=== PATIENT | male | born 1945 | race Caucasian/White ===

== ENCOUNTER 2017-01-15 09:49 | Inpatient (IN) | payer MEDICARE, OTHER ==
--- NOTE | 2017-01-15 10:11 | ED ---
General Adult HPI - General Chief complaint: Weakness Stated complaint: Weakness Time Seen by Provider: 01/15/17 09:50 Source: patient, family, EMS, RN notes reviewed Mode of arrival: EMS - History of Present Illness Initial comments: This is a 71-year-old male who presents emergency Department with a past medical history significant for mental illness according to his brother. His brother doesn't know what specific mental illness he has but he does stay in a nursing home. Patient was sent in today because he was too weak in both of his legs to stand. Patient denies any weakness to one leg greater than the other. Patient denies any headache patient denies any focal weakness or numbness. Patient denies any visual disturbance or speech disturbance. Patient does have slurred speech. Brother states that is normal. Patient denies any pain. He denies headache denies chest pain denies abdominal pain. Patient denies any difficulty breathing or shortness of breath. Patient denies any palpitations. Patient denies abdominal pain patient denies nausea vomiting diarrhea. Patient denies any recent fever or chills - Related Data Home Medications Medication Instructions Recorded Confirmed ARIPiprazole [Abilify] 30 mg PO DAILY 01/15/17 01/15/17 Acetaminophen [Tylenol] 500 mg PO Q6H PRN 01/15/17 01/15/17 Aspirin EC [Ecotrin Low Dose] 81 mg PO DAILY 01/15/17 01/15/17 Atorvastatin [Lipitor] 40 mg PO HS 01/15/17 01/15/17 Benztropine Mesylate [Cogentin] 2 mg PO HS 01/15/17 01/15/17 Diazepam [Valium] 5 mg PO TID 01/15/17 01/15/17 Ferrous Sulfate [Feosol] 325 mg PO TID 01/15/17 01/15/17 Furosemide [Lasix] 40 mg PO DAILY 01/15/17 01/15/17 Lisinopril [Zestril] 10 mg PO DAILY 01/15/17 01/15/17 Naproxen [Naprosyn] 500 mg PO Q12HR 01/15/17 01/15/17 lamoTRIgine [LaMICtal] 100 mg PO BID 01/15/17 01/15/17 traZODone HCL 100 mg PO HS 06/29/17 06/29/17 Allergies Allergy/AdvReac Type Severity Reaction Status Date / Time No Known Allergies Allergy Unverified 01/15/17 09:53 Review of Systems ROS Statement: Those systems with pertinent positive or pertinent negative responses have been documented in the HPI. ROS Other: All systems not noted in ROS Statement are negative. Past Medical History Past Medical History: Unable to Obtain History of Any Multi-Drug Resistant Organisms: None Reported Additional Past Surgical History / Comment(s): patient refused to disclose Past Psychological History: Unable to Obtain Smoking Status: Current every day smoker Past Alcohol Use History: None Reported Past Drug Use History: None Reported General Exam - General Exam Comments Initial Comments: GENERAL: Patient is well-developed and well-nourished. Patient is nontoxic and well- hydrated and is in no acute distress. ENT: Neck is soft and supple. No significant lymphadenopathy is noted. Oropharynx is clear. Moist mucous membranes. EYES: The sclera were anicteric and conjunctiva were pink and moist. Extraocular movements were intact and pupils were equal round and reactive to light. Eyelids were unremarkable. PULMONARY: Unlabored respirations. Good breath sounds bilaterally. No audible rales rhonchi or wheezing was noted. CARDIOVASCULAR: There is a regular rate and rhythm without any murmurs gallops or rubs. ABDOMEN: Soft and nontender with normal bowel sounds. No palpable organomegaly was noted. There is no palpable pulsatile mass. SKIN: Skin is clear with no lesions or rashes and otherwise unremarkable. NEUROLOGIC: Patient is alert and oriented 2. Cranial nerves II through XII are grossly intact. Motor and sensory are also intact. Patient has slurred speech but family states this is normal for him. Symmetrical smile. MUSCULOSKELETAL: Normal extremities with adequate strength and full range of motion. 1+ edema.. No calf tenderness. LYMPHATICS: No significant lymphadenopathy is noted Course Vital Signs 01/15/17 01/15/17 01/15/17 09:50 11:30 12:08 Temperature 98.3 F Pulse Rate 95 Respiratory 17 Rate Blood Pressure 159/97 150/65 O2 Sat by Pulse 90 L 75 L Oximetry 01/15/17 01/15/17 01/15/17 12:17 14:23 15:22 Temperature Pulse Rate 89 91 89 Respiratory 18 18 20 Rate Blood Pressure 116/57 97/53 104/54 O2 Sat by Pulse 93 L 92 L 96 Oximetry 01/15/17 16:53 Temperature 97.1 F L Pulse Rate 84 Respiratory 18 Rate Blood Pressure 103/52 O2 Sat by Pulse 95 Oximetry Medical Decision Making - Medical Decision Making EKG shows sinus rhythm with occasional PVC at 96 bpm NE interval is 166 QRS is 90 QT interval 394 QTC is 497. Patient's EKG shows some T-wave inversions in leads V1 through V4. When compared to an old EKG these are new changes. At 1226 patient's x-ray came back as a possible pneumonia so we do a lactic acid at this time. - Lab Data Result diagrams: 01/15/17 10:20 01/15/17 10:20 Lab Results 01/15/17 01/15/17 01/15/17 Range/Units 10:20 10:20 10:20 WBC 7.7 (3.8-10.6) k/uL RBC 4.35 (4.30-5.90) m/uL Hgb 11.2 L (13.0-17.5) gm/dL Hct 36.9 L (39.0-53.0) % MCV 84.8 (80.0-100.0) fL MCH 25.7 (25.0-35.0) pg MCHC 30.3 L (31.0-37.0) g/dL RDW 16.5 H (11.5-15.5) % Plt Count 333 (150-450) k/uL Neutrophils % 71 % Lymphocytes % 19 % Monocytes % 5 % Eosinophils % 3 % Basophils % 1 % Neutrophils # 5.4 (1.3-7.7) k/uL Lymphocytes # 1.4 (1.0-4.8) k/uL Monocytes # 0.4 (0-1.0) k/uL Eosinophils # 0.2 (0-0.7) k/uL Basophils # 0.0 (0-0.2) k/uL Hypochromasia Marked Anisocytosis Slight PT (9.0-12.0) sec INR (<1.1) APTT (22.0-30.0) sec Sodium 138 (137-145) mmol/L Potassium 4.6 (3.5-5.1) mmol/L Chloride 99 (98-107) mmol/L Carbon Dioxide 32 H (22-30) mmol/L Anion Gap 7 mmol/L BUN 36 H (9-20) mg/dL Creatinine 1.38 H (0.66-1.25) mg/dL Est GFR (MDRD) Af Amer >60 (>60 ml/min/1.73 sqM) Est GFR (MDRD) Non-Af 51 (>60 ml/min/1.73 sqM) Glucose 107 H (74-99) mg/dL Plasma Lactic Acid Ezequiel (0.7-2.0) mmol/L Calcium 8.4 (8.4-10.2) mg/dL Magnesium 2.2 (1.6-2.3) mg/dL Total Bilirubin 0.6 (0.2-1.3) mg/dL AST 47 (17-59) U/L ALT 70 (21-72) U/L Alkaline Phosphatase 118 (38-126) U/L Total Creatine Kinase 60 (55-170) U/L CK-MB (CK-2) 3.1 H* (0.0-2.4) ng/mL CK-MB (CK-2) Rel Index 5.2 Troponin I 0.082 H* (0.000-0.034) ng/mL Total Protein 6.6 (6.3-8.2) g/dL Albumin 3.5 (3.5-5.0) g/dL Urine Color Urine Appearance (Clear) Urine pH (5.0-8.0) Ur Specific Devol (1.001-1.035) Urine Protein (Negative) Urine Glucose (UA) (Negative) Urine Ketones (Negative) Urine Blood (Negative) Urine Nitrite (Negative) Urine Bilirubin (Negative) Urine Urobilinogen (<2.0) mg/dL Ur Leukocyte Esterase (Negative) Urine RBC (0-5) /hpf Urine WBC (0-5) /hpf Ur Squamous Epith Cells (0-4) /hpf Urine Bacteria (None) /hpf Hyaline Casts (0-2) /lpf Urine Mucus (None) /hpf 01/15/17 01/15/17 01/15/17 Range/Units 10:20 10:20 12:05 WBC (3.8-10.6) k/uL RBC (4.30-5.90) m/uL Hgb (13.0-17.5) gm/dL Hct (39.0-53.0) % MCV (80.0-100.0) fL MCH (25.0-35.0) pg MCHC (31.0-37.0) g/dL RDW (11.5-15.5) % Plt Count (150-450) k/uL Neutrophils % % Lymphocytes % % Monocytes % % Eosinophils % % Basophils % % Neutrophils # (1.3-7.7) k/uL Lymphocytes # (1.0-4.8) k/uL Monocytes # (0-1.0) k/uL Eosinophils # (0-0.7) k/uL Basophils # (0-0.2) k/uL Hypochromasia Anisocytosis PT 10.5 (9.0-12.0) sec INR 1.0 (<1.1) APTT 23.2 (22.0-30.0) sec Sodium (137-145) mmol/L Potassium (3.5-5.1) mmol/L Chloride (98-107) mmol/L Carbon Dioxide (22-30) mmol/L Anion Gap mmol/L BUN (9-20) mg/dL Creatinine (0.66-1.25) mg/dL Est GFR (MDRD) Af Amer (>60 ml/min/1.73 sqM) Est GFR (MDRD) Non-Af (>60 ml/min/1.73 sqM) Glucose (74-99) mg/dL Plasma Lactic Acid Ezequiel 1.2 (0.7-2.0) mmol/L Calcium (8.4-10.2) mg/dL Magnesium (1.6-2.3) mg/dL Total Bilirubin (0.2-1.3) mg/dL AST (17-59) U/L ALT (21-72) U/L Alkaline Phosphatase (38-126) U/L Total Creatine Kinase (55-170) U/L CK-MB (CK-2) (0.0-2.4) ng/mL CK-MB (CK-2) Rel Index Troponin I (0.000-0.034) ng/mL Total Protein (6.3-8.2) g/dL Albumin (3.5-5.0) g/dL Urine Color Yellow Urine Appearance Clear (Clear) Urine pH 5.5 (5.0-8.0) Ur Specific Devol 1.022 (1.001-1.035) Urine Protein Trace H (Negative) Urine Glucose (UA) Negative (Negative) Urine Ketones Negative (Negative) Urine Blood Negative (Negative) Urine Nitrite Negative (Negative) Urine Bilirubin Negative (Negative) Urine Urobilinogen 2.0 (<2.0) mg/dL Ur Leukocyte Esterase Trace H (Negative) Urine RBC 1 (0-5) /hpf Urine WBC 1 (0-5) /hpf Ur Squamous Epith Cells <1 (0-4) /hpf Urine Bacteria Rare H (None) /hpf Hyaline Casts 60 H (0-2) /lpf Urine Mucus Rare H (None) /hpf Disposition Clinical Impression: Pneumonia Disposition: ADMITTED IP TO THIS HOSP Referrals: Samantha Altman MD [REFERRING] - 1-2 days Time of Disposition: 16:50
[2017-01-15 10:54] LABS: ALT 70 U/L (21-72); AST 47 U/L (17-59); Alkaline Phosphatase 118 U/L (38-126); Anion Gap 7 mmol/L; Blood Urea Nitrogen 36 mg/dL (9-20); Calcium 8.4 mg/dL (8.4-10.2); Carbon Dioxide 32 mmol/L (22-30); Chloride 99 mmol/L (98-107); Glucose 107 mg/dL (74-99); Magnesium 2.2 mg/dL (1.6-2.3); Non-African American GFR(MDRD) 51 (>60 ml/min/1.73 sqM); Potassium 4.6 mmol/L (3.5-5.1); Sodium 138 mmol/L (137-145); Total Bilirubin 0.6 mg/dL (0.2-1.3); Total Protein 6.6 g/dL (6.3-8.2)
[2017-01-15 11:02] LABS: Partial Thromboplastin Time 23.2 sec (22.0-30.0); Prothrombin Time 10.5 sec (9.0-12.0)
[2017-01-15 11:10] LABS: Anisocytosis Slight; Basophils % (A) 1 %; CH 24.1; CHCM 28.6; Eosinophils # (A) 0.2 k/uL (0-0.7); Eosinophils % (A) 3 %; HCT 36.9 % (39.0-53.0); HDW 3.04; HGB 11.2 gm/dL (13.0-17.5); Hypochromasia Marked; Luc % (Auto) 3; Lymphocytes # (A) 1.4 k/uL (1.0-4.8); Lymphocytes % (A) 19 %; MCH 25.7 pg (25.0-35.0); MCHC 30.3 g/dL (31.0-37.0); MCV 84.8 fL (80.0-100.0); Mean Platelet Volume 7.6; Monocytes # (A) 0.4 k/uL (0-1.0); Monocytes % (A) 5 %; Neutrophils # (A) 5.4 k/uL (1.3-7.7); Neutrophils % (A) 71 %; RBC 4.35 m/uL (4.30-5.90); RDW 16.5 % (11.5-15.5); WBC 7.7 k/uL (3.8-10.6); WBC (Perox) 7.68
--- NOTE | 2017-01-15 11:14 | XR ---
EXAMINATION TYPE: XR chest 2V DATE OF EXAM: 01/15/2017 COMPARISON: 10/08/2012 INDICATION: Weakness TECHNIQUE: Frontal and lateral views of the chest are obtained. FINDINGS: The heart size is enlarged. The pulmonary vasculature is normal. There is opacity through the right midlung. This is also in the posterior right lung base. Small righ t pleural effusion is present.. IMPRESSION: 1. Right lower posterior lung infiltrate can be related to chronic changes previous. Small right pleu ral effusion is present.
[2017-01-15 11:18] LABS: Creatine Kinase MB 3.1 ng/mL (0.0-2.4); Troponin I 0.082 ng/mL (0.000-0.034)
[2017-01-15] MEDS ORDERED: RX INFO: IV CONTRAST WAS GIVEN 1 EACH MISC MISCELLANE PRN (12:25)
[2017-01-15] MEDS ORDERED: LEVOFLOXACIN 750MG-D5W PMX 750 MG in DEXTROSE/WATER 1 150ML.BAG IVPB STA (12:25)
[2017-01-15 12:27] LABS: Appearance,Urine Clear (Clear); Bacteria,Urine Rare /hpf; Bilirubin,Urine Negative (Negative); Glucose,Urine (UA) Negative (Negative); Ketones,Urine Negative (Negative); Leukocyte Esterase,Urine Trace (Negative); Mucus,Urine Rare /hpf; Nitrite,Urine Negative (Negative); PH, Urine 5.5 (5.0-8.0); Particle Count 3321; Protein,Urine Trace (Negative); RBC,Urine 1 /hpf (0-5); Specific Gravity,Urine 1.022 (1.001-1.035); Squamous Epithelial Cell,Urine <1 /hpf (0-4); UA Billing (MACRO vs. MICRO) MICRO; WBC,Urine 1 /hpf (0-5)
[2017-01-15] MEDS ORDERED: LORazepam 2 MG/ML SYRINGE IV STA (12:30)
[2017-01-15] MEDS ORDERED: KETOROLAC 60 MG/2 ML VIAL IVP STA (13:17)
--- NOTE | 2017-01-15 13:20 | CT ---
EXAMINATION TYPE: CT chest angio for PE DATE OF EXAM: 01/15/2017 COMPARISON: Radiograph 01/15/2017 HISTORY: 71-year-old male trouble breathing, weakness TECHNIQUE: Contiguous axial scanning of the chest performed with IV Contrast, patient injected with 8 0 mL of Visipaque 320. Coronal/sagittal MIP reconstructions performed. CT DLP: 685 mGycm Automated exposure control for dose reduction was used. FINDINGS: The heart is moderately enlarged without pericardial effusion. Vessel calcifications are present. Aorta normal caliber with conventional arch vessel branching me. No thoracic lymphadenopathy by CT size criteria. Large caliber to the right and left pulmonary arteries and it 3.3 and 3.0 cm, respectively, suggestin g underlying pulmonary artery hypertension. Allowing for some respiratory motion artifact, no pulmona ry embolus is seen. Mild diffuse bronchial wall thickening and septal lines in the mid to lower lungs. There is a focal a lino of rounded masslike opacity with associated volume loss within the basilar right lower lobe measu ring 6.1 cm wide abutting the pleural surface. There is a small to moderate right pleural effusion wi th thickened surrounding pleura. Additional focal opacity in the subpleural right middle lobe show so me curvilinear radiating densities. Dependent atelectasis posterior left base. Visualized upper abdomen shows a 4.1 cm gallstone. Indeterminate hypodense lesion, partially visualiz ed in the left kidney seems to have been present in 2012 as well suggestive of a cyst. Bridging anterior endplate spondylosis within the thoracic spine. No osseous destructive process. IMPRESSION: 1. ALLOWING FOR RESPIRATORY MOTION ARTIFACTS, NO EVIDENCE FOR PULMONARY EMBOLUS. 2. MODERATE CARDIOMEGALY AND PULMONARY ARTERIAL HYPERTENSION. 3. GIVEN SOME SCATTERED GROUNDGLASS AND SEPTAL LINES IN THE MID TO LOWER LUNGS, CORRELATE TO EXCLUDE MILD CHF. 4. A SMALL TO MODERATE RIGHT PLEURAL EFFUSION SHOWS THICKENED SURROUNDING PLEURA. THIS COULD REPRESEN T A COMPLEX EFFUSION OR CHRONIC EFFUSION. CLINICAL CORRELATION RECOMMENDED. 5. ROUNDED MASSLIKE AREA OF CONSOLIDATION AND VOLUME LOSS ABUTTING THE PLEURAL EFFUSION WITHIN THE RI GHT LOWER LOBE. ROUNDED ATELECTASIS IS FAVORED. SIMILAR SMALLER AREA IN THE RIGHT MIDDLE LOBE. A 3-6 MONTH FOLLOW-UP EXAM IS RECOMMENDED TO REASSESS.
[2017-01-15] MEDS ORDERED: PNEUMONIA PROTOCOL UTILIZED 1 EACH MISC PO PRN (16:38)
[2017-01-15] MEDS ORDERED: ACETAMINOPHEN TAB 500 MG TAB PO PRN (19:35)
[2017-01-15] MEDS ORDERED: IPRATROPIUM-ALBUTEROL 3 ML NEB INHALATION SCH (20:00)
[2017-01-15] MEDS: FUROSEMIDE 10 MG/ML 4 ML VIAL IV SCH (20:58)
[2017-01-15] MEDS: ATORVASTATIN 40 MG TAB PO SCH (20:58)
[2017-01-15] MEDS: BENZTROPINE MESYLATE 1 MG TAB PO SCH (20:58)
[2017-01-15] MEDS: lamoTRIgine 100 MG TAB PO SCH (20:59)
[2017-01-15] MEDS: NAPROXEN 250 MG TAB PO SCH (20:59)
[2017-01-15] MEDS: FERROUS SULFATE 325 MG TAB PO SCH (21:00)
[2017-01-15] MEDS: traZODone HCL 100 MG TAB PO SCH (21:00)
[2017-01-15] MEDS ORDERED: IPRATROPIUM-ALBUTEROL 3 ML NEB INHALATION PRN (23:04)
[2017-01-16 03:35] LABS: Anion Gap 6 mmol/L; Blood Urea Nitrogen 27 mg/dL (9-20); Calcium 8.2 mg/dL (8.4-10.2); Carbon Dioxide 36 mmol/L (22-30); Chloride 98 mmol/L (98-107); Glucose 101 mg/dL (74-99); Non-African American GFR(MDRD) 54 (>60 ml/min/1.73 sqM); Potassium 4.6 mmol/L (3.5-5.1); Sodium 140 mmol/L (137-145)
[2017-01-16 04:22] LABS: Anisocytosis Slight; Basophils # (A) 0.1 k/uL (0-0.2); Basophils % (A) 1 %; CH 24.5; CHCM 28.3; Eosinophils # (A) 0.2 k/uL (0-0.7); Eosinophils % (A) 2 %; HCT 35.1 % (39.0-53.0); HDW 2.99; HGB 10.4 gm/dL (13.0-17.5); Hypochromasia Marked; Luc % (Auto) 1; Lymphocytes # (A) 1.4 k/uL (1.0-4.8); Lymphocytes % (A) 20 %; MCH 25.8 pg (25.0-35.0); MCHC 29.6 g/dL (31.0-37.0); Mean Platelet Volume 7.9; Monocytes # (A) 0.4 k/uL (0-1.0); Monocytes % (A) 5 %; Neutrophils # (A) 4.9 k/uL (1.3-7.7); Neutrophils % (A) 70 %; RBC 4.03 m/uL (4.30-5.90); RDW 16.3 % (11.5-15.5); WBC (Perox) 6.96
[2017-01-16] MEDS: NAPROXEN 250 MG TAB PO SCH ×2 (08:02→22:25)
[2017-01-16] MEDS: ASPIRIN 81 MG CHEW PO SCH (08:02)
[2017-01-16] MEDS: FERROUS SULFATE 325 MG TAB PO SCH ×3 (08:02→22:24)
[2017-01-16] MEDS: ARIPiprazole 15 MG TAB PO SCH (08:02)
[2017-01-16] MEDS: FUROSEMIDE 10 MG/ML 4 ML VIAL IV SCH (08:02)
[2017-01-16] MEDS: lamoTRIgine 100 MG TAB PO SCH ×2 (08:02→22:24)
[2017-01-16] MEDS ORDERED: ONDANSETRON 4 MG/2 ML VIAL IVP PRN (08:45)
[2017-01-16] MEDS ORDERED: LISINOPRIL 10 MG TAB PO SCH (09:00)
--- NOTE | 2017-01-16 10:00 | P.CN ---
Psychiatric Consult - . Consult date: 01/16/17 Consult:: 01/16/17 09:48 DATE OF SERVICE: 01/16/2017 IDENTIFYING DATA: This patient is a 71-year-old occasion male admitted to medical bed for weakness. Psychiatry was consult because patient is on several psychotropic medications, therefore having a psychiatric history. No specific consultation question. HISTORY OF PRESENT ILLNESS: The patient seated in the chair at the side of his bed water all over the floor patient apparently spilled couple water. His diaper was open and hanging down the edge of the chair. Patient was able to state his full name, and where he is, and gave the date as 01/15/2017. Patient was unable to state why he was here at the hospital. Patient was difficult to understand, mumbling his words. He did report that he is taking several medications he corrected me and stated "a lot of medications" . He stated that he has problems with sleep. He denied depression, anxiety. Patient denied thoughts of suicide or wanting to end his life. Received information from nurse Palma that his brother was briefly here today and that he reported the patient is a [place] . No other information available. Record review shows that patient has a guardian. It's also noted that patient lives in a jail. He has [facility] health benefits. Medically patient is being treated for pneumonia. PAST PSYCHIATRIC HISTORY: Unknown. PAST MEDICAL HISTORY: Per record, currently treated for pneumonia. ALLERGIES: No known drug allergies. CHEMICAL DEPENDENCY HISTORY: Unknown. FAMILY PSYCHIATRIC HISTORY: Unknown. FAMILY CHEMICAL DEPENDENCY HISTORY: Unknown. MENTAL STATUS EXAM: Patient alert and oriented 3 (off by one day) poor eye contact, tremor, fair groomed in hospital attire. Speech garbled, slurred, mumbling. no spontaneous speech Coherent, logical, goal directed thought process. No KAYDEN, no FOI. No TB/TW/TI Denied auditory and visual hallucinations. Denied paranoid ideation, delusions or IOR. Memory could not test Cognition unable to assess Mood neutral, affect constricted, congruent with mood. Denies suicidal ideation, denies homicidal ideation. Insight minimal; Judgment grossly intact for treatment purposes . IMPRESSIONS: Patient admitted for weakness, has several psychotropic medications that he is taking for unknown reasons. He now has been diagnosed with pneumonia and is being treated. No psychiatric symptoms were noted today nor the record, nor did the RN make any report of problems. Report by RN though from brother that patient is a [place] , and may have PTSD, which is coincide with what the patient reported that he has difficulty with sleep. Patient denied feeling depressed, anxious, and denied suicidal ideation or thoughts of wanting to end his life. At this moment there does not appear to be any psychiatric issues, patient is dealing with a medical illness that can compromise cognition as well as physical strength. No evidence of delirium, no evidence of psychosis, no evidence of jessica, no evidence of depression. Pneumonia R/O PTSD PLAN: No indication for psychiatric inpatient care, no indication for continued consult service. When patient is medically clear if there is a psychiatric issue please reconsult. Recommend consult taking social work services to coordinate with the guardian, who should know his psychiatric diagnoses and his treatment setting. Signing off. 01/16/17 10:01
--- NOTE | 2017-01-16 11:07 | ECHOF ---
Referral Reason:chf MEASUREMENTS -------- HEIGHT: 182.9 cm WEIGHT: 117.5 kg BP: 100/56 RVIDd: 4.2 cm (< 3.3) IVSd: 1.4 cm (0.6 - 1.1) LVIDd: 5.1 cm (3.9 - 5.3) LVPWd: 1.7 cm (0.6 - 1.1) IVSs: 1.6 cm LVIDs: 4.6 cm LVPWs: 1.5 cm LA Diam: 4.4 cm (2.7 - 3.8) Ao Diam: 4.8 cm (2.0 - 3.7) AV Cusp: 2.5 cm (1.5 - 2.6) LA Diam: 4.3 cm (2.7 - 3.8) MV EXCURSION: 16.399 mm (> 18.000) MV EF SLOPE: 51 mm/s (70 - 150) EPSS: 1.2 cm MV E Bam: 0.69 m/s MV DecT: 186 ms MV A Bam: 0.81 m/s MV E/A Ratio: 0.85 RAP: 5.00 mmHg RVSP: 53.73 mmHg FINDINGS -------- Undetermined rhythm. This was a technically adequate study. There is moderate concentric left ventricular hypertrophy. Overall left ventricular systolic function is mildly impaired with, an EF between 45 - 50 %. Inferior Hypokinesis The right ventricle is mildly enlarged. The left atrium is mildly dilated. The right atrial size is normal. There is mild aortic valve sclerosis. There is no evidence of aortic regurgitation. Mild mitral annular calcification present. No mitral regurgitation. Right ventricular systolic pressure is normal at < 35 mmHg. There is moderate pulmonary hypertension. The right ventricular systolic pressure, as measured by Doppler, is 53.73mmHg. Trace/mild (physiologic) pulmonic regurgitation. The aortic root size is normal. There is no pericardial effusion. CONCLUSIONS -------- 1. There is moderate concentric left ventricular hypertrophy. 2. There is moderate pulmonary hypertension. 3. The right ventricular systolic pressure, as measured by Doppler, is 53.73mmHg. 4. Trace/mild (physiologic) pulmonic regurgitation. 5. The aortic root size is normal. 6. There is no pericardial effusion. 7. Overall left ventricular systolic function is mildly impaired with, an EF between 45 - 50 %. 8. Inferior Hypokinesis 9. The right ventricle is mildly enlarged. 10. The left atrium is mildly dilated. 11. There is mild aortic valve sclerosis. 12. Mild mitral annular calcification present. 13. No mitral regurgitation. 14. Right ventricular systolic pressure is normal at < 35 mmHg. LOADING AND UNLOADING SUPERVISOR: Elizabeth Beasley RDCS
[2017-01-16] MEDS: LEVOFLOXACIN 750MG-D5W PMX 750 MG in DEXTROSE/WATER 1 150ML.BAG IVPB SCH (12:05)
[2017-01-16 12:38] LABS: Glucose,Whole Blood 205 mg/dL (75-99)
[2017-01-16] MEDS ORDERED: PROPOFOL 50 ML IV ONE ×3 (12:49→14:41)
[2017-01-16] MEDS ORDERED: NOREPINEPHRIN 4 MG-0.9% NS PMX 4 MG/250 ML ML IV ONE (12:56)
[2017-01-16 13:16] LABS: ABG Base Excess 5.3 mmol/L; ABG HCO3 36 mmol/L (21-25); ABG PCO2 >125 mmHg (35-45); ABG PH 7.06 (7.35-7.45); ABG PO2 96 mmHg (83-108); ABG TCO2 40 mmol/L (19-24)
[2017-01-16 13:23] LABS: Glucose,Whole Blood 207 mg/dL (75-99)
--- NOTE | 2017-01-16 13:27 | P.CNPUL ---
History of Present Illness Consult date: 01/16/17 Chief complaint: Acute unresponsiveness History of present illness: A 71-year-old male patient, morbidly obese with advanced COPD and a chronic smoking history along with a long-term psychiatric history probably including a combination of depression and PTSD who has been living in a detention. The patient came in yesterday to the hospital because of altered mentation and generalized body weakness. Not much of information is available. Emergency was not able to obtain information from this patient as the patient was not able to volunteer any information. The patient was sent in because he was too weak to stand and his weakness was both in upper and lower extremities without having any focal neurological deficit. His brother was in and he told us that he is usually awake and alert and communicative. He lives in a detention due to his underlying psychiatric conditions. The patient was initially admitted to the medical floor and he was given a diagnosis of an underlying pneumonia. Earlier this morning he was alert and responsive and he had several conversations with the nurses and around 1 PM this afternoon the patient became acutely unresponsive and an emergency consultation was requested by pulmonary and critical care. I came at the bedside and the patient was completely unresponsive. He had very shallow breathing. His blood pressure was low with a systolic in the mid 80s. He was not withdrawing to any painful stimuli. Pupils were about 3-4 mm in size and sluggishly reactive. At that point a immediate to move the patient intensive care unit. I had a brief discussion with the patient's brother. I and nondistended the patient has a public guardian. The patient does not have any advanced directives. Based on that, I immediately intubated the patient and put him on a mechanical ventilator. I put him on assist control mode at the rate of 16 with tidal volume 450 and FiO2 of 50% and a PEEP of 5. Blood gases that was done post intubation showed a pH of 7.06 with a pCO2 of 133 and pO2 of 96 and this was on FiO2 of 50%. Based on this, I kept the tidal volume of 450 increased the rate up to 24. The patient is currently sedated with Diprivan at 5 mics. He is quite hypotensive. Triple lumen catheter was inserted and the patient is being resuscitated IV fluids. The patient is also on pressors and currently levo fed is running at 30 mics. For at least to be inserted yet. NG tube was inserted. The patient had approximately 400-500 mL of gastric output which was clear and liquidy. No abdominal distention. No seizure activity. Going back to the labs, the patient had a normal white cell count this morning with a hemoglobin of 10.4. His coagulation profile was within normal. Creatinine was at 1.3 and a baseline creatinine is not known. He has chronic metabolic alkalosis probably compensatory to CO2 retention with a bicarb level of 36. Troponins were positive and there was a minimal amount of leak with a troponin of 0.08 and 0.127 respectively 2. BNP level was 7580. Echocardiogram was done earlier this morning showed a moderate concentric left ventricular hypertrophy with moderate degree of pulmonary hypertension with right ventricular systolic pressure of 53. The patient had also an ejection fraction of 45-50%. Mild aortic sclerosis. No mitral regurgitation. No pericardial effusion. CT angios the chest was also done and this showed moderate cardiomegaly with evidence of pulmonary hypertension. Some scattered groundglass changes and septal lines in the mid and the lower lung hernandez bilaterally consistent with CHF. There was a small to moderate-sized right-sided pleural effusion and a rounded masslike area of consolidation in the right lung base along with some volume loss probably related to around atelectasis. There was respiratory motion. No evidence of any pulmonary embolism. CAT scan of the brain has not been done. Review of Systems ROS unobtainable: due to endotracheal tube Past Medical History Past Medical History: No Reported History Additional Past Medical History / Comment(s): Obesity, pulmonary resident, depression, PTSD, COPD, chronic hypercapnic respiratory failure, hyperlipidemia , hypertension, History of Any Multi-Drug Resistant Organisms: None Reported Past Surgical History: No Surgical Hx Reported Additional Past Surgical History / Comment(s): patient refused to disclose Past Anesthesia/Blood Transfusion Reactions: No Reported Reaction Past Psychological History: Unable to Obtain Additional Psychological History / Comment(s): ER report indicated family member states there is a history of mental illness, but unsure what mental illness Smoking Status: Current some day smoker Past Alcohol Use History: None Reported Past Drug Use History: None Reported - Past Family History Father Family Medical History: Unable to Obtain Mother Family Medical History: Unable to Obtain Medications and Allergies Home Medications Medication Instructions Recorded Confirmed Type ARIPiprazole [Abilify] 30 mg PO DAILY 01/15/17 01/15/17 History Acetaminophen [Tylenol] 500 mg PO Q6H PRN 01/15/17 01/15/17 History Aspirin EC [Ecotrin Low Dose] 81 mg PO DAILY 01/15/17 01/15/17 History Atorvastatin [Lipitor] 40 mg PO HS 01/15/17 01/15/17 History Benztropine Mesylate [Cogentin] 2 mg PO HS 01/15/17 01/15/17 History Diazepam [Valium] 5 mg PO TID 01/15/17 01/15/17 History Ferrous Sulfate [Feosol] 325 mg PO TID 01/15/17 01/15/17 History Furosemide [Lasix] 40 mg PO DAILY 01/15/17 01/15/17 History Lisinopril [Zestril] 10 mg PO DAILY 01/15/17 01/15/17 History Naproxen [Naprosyn] 500 mg PO Q12HR 01/15/17 01/15/17 History lamoTRIgine [LaMICtal] 100 mg PO BID 01/15/17 01/15/17 History traZODone HCL 100 mg PO HS 01/15/17 01/15/17 History Allergies Allergy/AdvReac Type Severity Reaction Status Date / Time No Known Allergies Allergy Unverified 01/15/17 09:53 Physical Exam Vitals: Vital Signs Temp Pulse Pulse Resp BP BP Pulse Ox 01/16/17 12:00 98.2 F 100 20 118/60 96 01/16/17 08:00 97.9 F 90 20 122/64 95 01/16/17 04:00 97.1 F L 62 17 100/56 95 01/16/17 00:00 97.2 F L 63 16 132/56 94 L 01/15/17 20:13 96 01/15/17 18:13 98.2 F 90 17 118/57 91 L 01/15/17 16:53 97.1 F L 84 18 103/52 95 01/15/17 15:22 89 20 104/54 96 01/15/17 14:23 91 18 97/53 92 L Intake and Output 01/15/17 01/16/17 01/16/17 22:59 06:59 14:59 Intake Total 40 760 100 Output Total 0 Balance 40 760 100 Intake: IV 40 160 0.9 40 160 Oral 600 100 Output: Urine 0 Other: Voiding Method Diaper Diaper # Voids 1 Weight 116.5 kg 117.5 kg Obese, comfortable on mechanical ventilator intubated with an orotracheal and orogastric tube are both in place.Head exam was generally normal. There was no scleral icterus or corneal arcus. Mucous membranes were moist. Oral GE and ET tube are both in place. Neck is supple and there is no JVDs no goiter or neck masses this point. Lung sounds are diminished and this is scattered rhonchi and scattered external wheezes bilaterally. Breath sounds are equal and symmetrical as the patient is synchronous with the mechanical ventilator. Heart sounds shows accentuation of the second heart sounds. The rhythm is regular. Positive S1-S2. No significant murmurs appreciated. Abdomen is obese soft nontender. No direct tenderness or rebound tensile guarding. Extremities +1 edema there is no cyanosis or clubbing at this point. Neurologically patient is sedated. Not withdrawing to any painful stimuli this point. He is on a 5 mics of Diprivan. No facial asymmetry. Pupils around 4-5 mm in size. Results - Laboratory Findings CBC and BMP: 01/16/17 03:10 01/16/17 03:14 PT/INR, D-dimer PT 10.5 sec (9.0-12.0) 01/15/17 10:20 INR 1.0 (<1.1) 01/15/17 10:20 Abnormal lab findings: Abnormal Labs 01/15/17 01/15/17 01/15/17 10:20 10:20 10:20 RBC Hgb 11.2 L Hct 36.9 L MCHC 30.3 L RDW 16.5 H Carbon Dioxide 32 H BUN 36 H Creatinine 1.38 H Glucose 107 H POC Glucose (mg/dL) Calcium CK-MB (CK-2) 3.1 H* Troponin I 0.082 H* Urine Protein Ur Leukocyte Esterase Urine Bacteria Hyaline Casts Urine Mucus 01/15/17 01/16/17 01/16/17 12:05 03:10 03:14 RBC 4.03 L Hgb 10.4 L Hct 35.1 L MCHC 29.6 L RDW 16.3 H Carbon Dioxide 36 H BUN 27 H Creatinine 1.30 H Glucose 101 H POC Glucose (mg/dL) Calcium 8.2 L CK-MB (CK-2) Troponin I Urine Protein Trace H Ur Leukocyte Esterase Trace H Urine Bacteria Rare H Hyaline Casts 60 H Urine Mucus Rare H 01/16/17 01/16/17 03:14 12:26 RBC Hgb Hct MCHC RDW Carbon Dioxide BUN Creatinine Glucose POC Glucose (mg/dL) 205 H Calcium CK-MB (CK-2) Troponin I 0.127 H* Urine Protein Ur Leukocyte Esterase Urine Bacteria Hyaline Casts Urine Mucus - Diagnostic Findings Chest x-ray: image reviewed Assessment and Plan Plan: Assessment 1 acute unresponsiveness, multifactorial. Rule out CO2 narcosis. Rule out CVA. 2 acute respiratory failure. The patient has an acute hypercapnic respiratory failure probably related to COPD. Superimposed CHF/pneumonia cannot be completely excluded. 3 acute respiratory failure requiring intubation mechanical ventilation. 4 shock, currently on pressors with high-dose norepinephrine infusion. Echocardiogram earlier this morning was done and the patient has an ejection fraction of around 4045% with secondary pulmonary hypertension. CTA of the chest shows no pericardial effusion or any pulmonary embolism. Rule out a component of septic shock 5 right-sided pleural effusion [id number] in size 6 right basilar ground atelectasis 7 acute kidney injury 8 obesity. 9 chronic psychotic disorder with multiple psychotropic medication including a combination of trazodone, Abilify, Cogentin and Lamictal. Rule out underlying depression. Rule out underlying PTSD. Rule out underlying bipolar disorder 10 COPD 11 chronic smoker 12 hypertension 13 hyperlipidemia Plan Keep the patient on mechanical ventilator. The blood gases and the necessity vent changes. Post intubation chest x-ray still pending for now. Meanwhile continue resuscitation. The triple-lumen catheter was inserted. Measured the CVP. The pressors will be continued for hemodynamic support to keep him map above 65. Echocardiogram was done earlier and this was reviewed. CT of the chest was done earlier and this was reviewed. Obtain teixeira cultures. Put the patient on a combination of Zosyn and Levaquin as empiric antibiotic coverage. Keep this patient sedated with Diprivan. CAT scan of the brain no contrast. DuoNeb neb last treatment [id number]. IV Solu-Medrol for COPD exacerbation. Obtain records from previous hospitalizations. Obtain previous psychiatric history. Contact the guardian for advanced directives. We'll continue to follow make further recommendations. Condition is critical at this point. Time with Patient: Greater than 30
--- NOTE | 2017-01-16 13:32 | P.PCN ---
Date of Procedure: 01/16/17 Preoperative Diagnosis: Acute respiratory failure Postoperative Diagnosis: Same Procedure(s) Performed: Intubation, insertion of a triple-lumen catheter, insertion of an arterial line catheter. Implants: Anesthesia: none Surgeon: Bobbi Goldstein Estimated Blood Loss (ml): 0 Pathology: none sent Condition: critical Disposition: ICU Indications for Procedure: Operative Findings: Description of Procedure: Intubation The patient was brought into the intensive care unit. The patient was being bagged using and unable bag. His pulse ox was around 91-92% as he was being back. He was completely unresponsive. I used a #4 Saunders blade to visualize the vocal cords. Under direct visualization, I was able to insert a #8 orotracheal tube and I gently passed the orotracheal tube past the vocal cords and position did in the trachea. That she was advanced at 22 cm lip line. That she was secured in place. The CO2 detector identified and the patient's intubation was successful and the ET tube was in the trachea. Further bagging utilizing a number back showed a breath sounds were equal and symmetrical. The patient with attention a mechanical ventilator. No bedside complications for this procedure. Insertion of a triple-lumen catheter This procedure was done in emergency setting. This procedure was done in the intensive care unit after patient being intubated. The left chest was cleaned using ChloraPrep and the appropriate dressing was applied. The skin was infiltrated with 1% lidocaine and following that a central line introducer needle was used to identify and locate the left subclavian vein. A guidewire was inserted successfully and the needle was removed. Following that the skin was incised and using the Seldinger technique a triple lumen catheter was floated into the left subclavian vein without any major difficulties. The guidewire was removed. The blood return and the different ports of the tubal catheter was adequate. Different ports were flushed and the catheter was sutured in place. No bedside complications or bleeding. No pneumothorax based on the postoperative chest x-ray. Insertion of an arterial line catheter This procedure was done in the emergency setting. The procedure was done in intensive care unit. The right upper extremity was extended and positioned on a bedside table with the rest being completely extension. The radial pulse in the right approximately was palpated. The skin was cleaned using chlorhexidine. Following that, and outline introducer needle was utilized to identify the right radial artery. A guidewire was successfully inserted. The needle was removed. Following that, using the Seldinger technique, an outlying catheter was easily passed over the guidewire into the right radial artery. The blood return was adequate. The art line Line catheter was attached to the monitored and an arterial waveform and a blood pressure was recorded. Appropriate calibration was done. The catheter was secured and sutured in place. No bedside complications or bleeding.
--- NOTE | 2017-01-16 13:35 | XR ---
EXAMINATION TYPE: XR chest 1V portable DATE OF EXAM: 01/16/2017 HISTORY: Shortness of breath. COMPARISON: 01/15/2017 TECHNIQUE: Single view of the chest is submitted. FINDINGS: Endotracheal tube is 3 cm from the deepak. NG tube is seen coursing into the stomach. Left subclavian central venous line demonstrates its tip overlying the SVC. No evidence for pneumothorax. Right lower lobe infiltrate persists. Small pleural effusion suspected. The heart is stable. Hilar and mediastinal structures are within normal limits. Degenerative changes are seen of the dorsal spine. IMPRESSION: 1. Indwelling tubes and catheters as noted. 2. Right lower lobe infiltrate and small effusions.
[2017-01-16] MEDS ORDERED: EMPTY BAG 1 BAG with PROPOFOL 1,000 MG IV SCH (13:45)
[2017-01-16 13:46] LABS: INR 1.1 (<1.1)
[2017-01-16 13:48] LABS: Anion Gap 5 mmol/L; Blood Urea Nitrogen 27 mg/dL (9-20); Calcium 7.9 mg/dL (8.4-10.2); Carbon Dioxide 36 mmol/L (22-30); Chloride 99 mmol/L (98-107); Glucose 163 mg/dL (74-99); Magnesium 2.1 mg/dL (1.6-2.3); Non-African American GFR(MDRD) 52 (>60 ml/min/1.73 sqM); Phosphorous 6.4 mg/dL (2.5-4.5); Potassium 5.1 mmol/L (3.5-5.1); Sodium 140 mmol/L (137-145)
[2017-01-16 13:51] LABS: Anisocytosis Slight; Basophils % (A) 0 %; CH 23.9; CHCM 27.1; Eosinophils # (A) 0.1 k/uL (0-0.7); Eosinophils % (A) 1 %; HCT 37.5 % (39.0-53.0); HDW 2.95; HGB 10.9 gm/dL (13.0-17.5); Hypochromasia Marked; Luc # (Auto) 0.05; Luc % (Auto) 0; Lymphocytes # (A) 0.8 k/uL (1.0-4.8); Lymphocytes % (A) 7 %; MCH 25.7 pg (25.0-35.0); MCV 88.5 fL (80.0-100.0); Mean Platelet Volume 7.2; Monocytes # (A) 0.2 k/uL (0-1.0); Monocytes % (A) 2 %; Neutrophils # (A) 10.2 k/uL (1.3-7.7); Neutrophils % (A) 90 %; RBC 4.24 m/uL (4.30-5.90); RDW 16.2 % (11.5-15.5); WBC 11.3 k/uL (3.8-10.6); WBC (Perox) 11.81
[2017-01-16] MEDS ORDERED: NOREPINEPHRIN 16 MG-0.9%NS PMX 16 MG/250 ML ML IV SCH (14:00)
[2017-01-16] MEDS: methylPREDNISolone SOD SUCCI 125 MG/2 ML VIAL IV SCH ×2 (14:11→17:12)
[2017-01-16] MEDS: PANTOPRAZOLE 40 MG/10 ML VIAL IVP SCH (14:11)
[2017-01-16] MEDS: ENOXAPARIN 40 MG/0.4 ML SYRINGE SQ SCH (14:12)
[2017-01-16] MEDS: SODIUM CHLORIDE 0.9% 1,000 ML IV SCH (14:12)
--- NOTE | 2017-01-16 15:32 | CT ---
EXAMINATION TYPE: CT brain wo con DATE OF EXAM: 01/16/2017 COMPARISON: NONE INDICATION: Patient shows signs of altered mental status. DLP: 851.8 mGycm, Automated exposure control for dose reduction was used. CONTRAST: None CT of the brain is performed utilizing 3 mm thick sections through the posterior fossa and 3 mm thick sections through the remaining calvarium. Study is performed within 24 hours of arrival to the hosp [facility]. No abnormal hyperdensity is present to suggest an acute intracranial hemorrhage. No mass lesion is evident. No acute infarcts are evident. Ventricles and sulci are appropriate for the patient age. Paranasal sinuses and mastoid air cells within the [id number] are clear. IMPRESSIONS: 1. No acute intracranial process.
[2017-01-16] MEDS: PIPERACILLIN-TAZOBACTAM 3.375 GM in DEXTROSE/WATER 1 50ML.BAG IVPB SCH (15:37)
[2017-01-16] MEDS: PROPOFOL 500 MG in EMPTY BAG 1 BAG IV SCH ×3 (15:59→22:26)
[2017-01-16 16:02] LABS: ABG Base Excess 7.5 mmol/L; ABG HCO3 33 mmol/L (21-25); ABG Oxygen Saturation 96.1 % (94-97); ABG PCO2 57 mmHg (35-45); ABG PH 7.38 (7.35-7.45); ABG PO2 87 mmHg (83-108); ABG TCO2 35 mmol/L (19-24)
--- NOTE | 2017-01-16 16:21 | P.CRDCN ---
History of Present Illness Reason for Consult (text): Respiratory distress and change in the mental status History of present illness: This patient is currently intubated and the history is a mostly of pain from the chart. His patient was transferred from the care home because of the change in the mental status and decreased responsiveness patient was doing fairly well earlier this morning but this afternoon the patient became acutely unresponsive and the patient was transferred to the intensive care unit recent was intubated post intubation arterial blood gases was acute respiratory failure and CO2 retention and has received fluids and currently is only walk for to maintain the blood pressure echocardiogram done earlier this morning reveal ejection fraction of 45-50% the mild pulmonary hypertension. His and has a borderline elevation in the troponin Past Medical History Past Medical History: No Reported History Additional Past Medical History / Comment(s): Obesity, pulmonary resident, depression, PTSD, COPD, chronic hypercapnic respiratory failure, hyperlipidemia , hypertension, History of Any Multi-Drug Resistant Organisms: None Reported Past Surgical History: No Surgical Hx Reported Additional Past Surgical History / Comment(s): patient refused to disclose Past Anesthesia/Blood Transfusion Reactions: No Reported Reaction Past Psychological History: Unable to Obtain Additional Psychological History / Comment(s): ER report indicated family member states there is a history of mental illness, but unsure what mental illness Smoking Status: Current some day smoker Past Alcohol Use History: None Reported Past Drug Use History: None Reported - Past Family History Father Family Medical History: Unable to Obtain Mother Family Medical History: Unable to Obtain Medications and Allergies Home Medications Medication Instructions Recorded Confirmed Type ARIPiprazole [Abilify] 30 mg PO DAILY 01/15/17 01/15/17 History Acetaminophen [Tylenol] 500 mg PO Q6H PRN 01/15/17 01/15/17 History Aspirin EC [Ecotrin Low Dose] 81 mg PO DAILY 01/15/17 01/15/17 History Atorvastatin [Lipitor] 40 mg PO HS 01/15/17 01/15/17 History Benztropine Mesylate [Cogentin] 2 mg PO HS 01/15/17 01/15/17 History Diazepam [Valium] 5 mg PO TID 01/15/17 01/15/17 History Ferrous Sulfate [Feosol] 325 mg PO TID 01/15/17 01/15/17 History Furosemide [Lasix] 40 mg PO DAILY 01/15/17 01/15/17 History Lisinopril [Zestril] 10 mg PO DAILY 01/15/17 01/15/17 History Naproxen [Naprosyn] 500 mg PO Q12HR 01/15/17 01/15/17 History lamoTRIgine [LaMICtal] 100 mg PO BID 01/15/17 01/15/17 History traZODone HCL 100 mg PO HS 01/15/17 01/15/17 History Allergies Allergy/AdvReac Type Severity Reaction Status Date / Time No Known Allergies Allergy Unverified 01/15/17 09:53 Physical Exam Vitals: Vital Signs Temp Pulse Pulse Resp BP BP Pulse Ox 01/16/17 15:47 98 01/16/17 15:40 71 145/77 98 01/16/17 15:30 61 01/16/17 15:20 114/56 01/16/17 15:10 114/56 01/16/17 15:00 114/56 01/16/17 14:50 59 L 91/43 100 01/16/17 14:40 59 L 100 01/16/17 14:30 61 99 01/16/17 14:20 66 104/49 100 01/16/17 14:10 68 104/49 100 01/16/17 14:00 126 H 104/49 100 01/16/17 13:50 94 104/49 98 01/16/17 13:40 102 H 16 98/42 100 01/16/17 13:30 85 16 101/41 96 01/16/17 13:20 87 16 107/41 96 01/16/17 13:10 94 16 100/45 90 L 01/16/17 13:00 97.5 F L 94 16 72/26 98 01/16/17 12:51 116/51 93 L 01/16/17 12:00 98.2 F 100 20 118/60 96 01/16/17 08:00 97.9 F 90 20 122/64 95 01/16/17 04:00 97.1 F L 62 17 100/56 95 01/16/17 00:00 97.2 F L 63 16 132/56 94 L 01/15/17 20:13 96 01/15/17 18:13 98.2 F 90 17 118/57 91 L 01/15/17 16:53 97.1 F L 84 18 103/52 95 Intake and Output 01/16/17 01/16/17 01/16/17 06:59 14:59 22:59 Intake Total 760 1116.797 22.813 Output Total 200 200 Balance 760 916.797 -177.187 Intake: IV 160 1000 0.9 160 1000 Intake, IV Titration 16.797 22.813 Amount Norepinephrin 16 mg-0.9% 16.797 10.313 Ns Pmx 16 mg In 250 ml @ Titrate IV .Q0M [facility] Rx#: [id number] Piperacillin-Tazobactam 3 12.5 .375 gm In Dextrose/Water 1 50ml.bag @ 12.5 mls/hr IVPB Q8HR [facility] Rx#: [id number] Oral 600 100 Output: Urine 200 200 Other: Voiding Method Diaper Diaper # Voids 1 Weight 117.5 kg ABP, PAP, CO, CI - Last 8 Hours Arterial Blood Pressure 130/55 Arterial Blood Pressure 136/60 Arterial Blood Pressure 108/50 Arterial Blood Pressure 100/48 Arterial Blood Pressure 92/39 Arterial Blood Pressure 106/45 Arterial Blood Pressure 108/50 Arterial Blood Pressure 134/61 Arterial Blood Pressure 104/51 Arterial Blood Pressure 135/66 Arterial Blood Pressure 99/49 Arterial Blood Pressure 90/48 Patient's vital signs are reviewed Patient is currently intubated Head ENT in normal Neck is supple. Jugular venous pressure is difficult to assess. First and second heart sounds are normal Lungs. Bilateral scattered wheezes Abdomen is soft Extremities leg edema. Results 01/16/17 13:29 01/16/17 13:29 Cardiac Enzymes 01/16/17 01/16/17 Range/Units 03:14 13:29 Troponin I 0.127 H* 0.088 H* (0.000-0.034) ng/mL Coagulation 01/16/17 Range/Units 13:29 PT 11.0 (9.0-12.0) sec APTT 22.0 (22.0-30.0) sec CBC 01/16/17 01/16/17 Range/Units 03:10 13:29 WBC 7.0 11.3 H (3.8-10.6) k/uL RBC 4.03 L 4.24 L (4.30-5.90) m/uL Hgb 10.4 L 10.9 L (13.0-17.5) gm/dL Hct 35.1 L 37.5 L (39.0-53.0) % Plt Count 258 307 (150-450) k/uL Comprehensive Metabolic Panel 01/16/17 01/16/17 Range/Units 03:14 13:29 Sodium 140 140 (137-145) mmol/L Potassium 4.6 5.1 (3.5-5.1) mmol/L Chloride 98 99 (98-107) mmol/L Carbon Dioxide 36 H 36 H (22-30) mmol/L BUN 27 H 27 H (9-20) mg/dL Creatinine 1.30 H 1.35 H (0.66-1.25) mg/dL Glucose 101 H 163 H (74-99) mg/dL Calcium 8.2 L 7.9 L (8.4-10.2) mg/dL Current Medications Generic Name Dose Route Start Last Admin Trade Name Freq PRN Reason Stop Dose Admin Acetaminophen 500 mg 01/15/17 19:35 Tylenol Tab PO Q6H PRN Pain Albuterol/Ipratropium 3 ml 01/15/17 23:04 Duoneb 0.5 Mg-3 Mg/3 Ml Soln INHALATION RT-QID PRN Shortness Of Breath Or Wheezing Aripiprazole 30 mg 01/16/17 09:00 01/16/17 08:02 Abilify PO 30 mg DAILY JYOTSNA Administration Aspirin 81 mg 01/16/17 09:00 01/16/17 08:02 Aspirin PO 81 mg DAILY J[facility]NA Administration Atorvastatin Calcium 40 mg 01/15/17 21:00 01/15/17 20:58 Lipitor PO 40 mg HS [facility]NA Administration Benztropine Mesylate 2 mg 01/15/17 21:00 01/15/17 20:58 Cogentin PO 2 mg HS [facility] Administration Chlorhexidine Gluconate 15 ml 01/16/17 21:00 Peridex MUCOUS MEM BID [facility] Enoxaparin Sodium 40 mg 01/16/17 14:00 01/16/17 14:12 Lovenox SQ 40 mg DAILY J[facility]NA Administration Ferrous Sulfate 325 mg 01/15/17 22:00 01/16/17 08:02 Feosol PO 325 mg TID J[facility] Administration Levofloxacin 750 mg/ IV 150 mls @ 100 mls/hr 01/16/17 13:00 01/16/17 12:05 Solution IVPB 01/28/17 13:01 100 mls/hr Q24H [facility] Administration Propofol 500 mg/ IV Solution 50 mls @ 0 mls/hr 01/16/17 13:00 01/16/17 15:59 IV 35 mcg/kg/min .Q0M J[facility]OT[facility]NA 24.67 mls/hr Protocol Administration Titrate Piperacillin/Tazobactam/ 50 mls @ 12.5 mls/hr 01/16/17 16:00 01/16/17 15:37 Dextrose 3.375 gm/ IV Solution IVPB 12.5 mls/hr Q8HR [facility] Administration Sodium Chloride 1,000 mls @ 100 mls/hr 01/16/17 13:45 01/16/17 14:12 Saline 0.9% IV Not Given .Q10H [facility] Norepinephrine Bitartrate 16 mg in 250 mls @ 0 mls/hr 01/16/17 14:00 15:42 Levophed-0.9% Nacl 16 Mg/250ml Pmx IV 5 mcg/min .Q0M [facility] 4.688 mls/hr Protocol Titration Titrate Lamotrigine 100 mg 01/15/17 21:00 01/16/17 08:02 Lamictal PO 100 mg BID [facility] Administration Methylprednisolone Sodium Succinate 60 mg 01/16/17 14:00 01/16/17 14:11 Solu-Medrol IV 60 mg Q6HR [facility] Administration Miscellaneous Information 1 each 01/15/17 12:25 Rx Info: Iv Contrast Was Given MISCELLANE 01/17/17 12:25 DAILY PRN Per Protocol Miscellaneous Information 1 each 01/15/17 16:38 Pneumonia Protocol Utilized PO ONCE PRN Per Protocol Naproxen 500 mg 01/15/17 21:00 01/16/17 08:02 Naprosyn PO 500 mg Q12HR [facility] Administration Ondansetron HCl 4 mg 01/16/17 08:45 01/16/17 09:10 Zofran IVP 4 mg Q6HR PRN Administration Nausea And Vomiting Pantoprazole Sodium 40 mg 01/16/17 13:45 01/16/17 14:11 Protonix IVP 40 mg DAILY [facility] Administration Trazodone HCl 100 mg 01/15/17 21:00 01/15/17 21:00 Desyrel PO 100 mg HS J[facility]NA Administration Intake and Output 01/16/17 01/16/17 01/16/17 06:59 14:59 22:59 Intake Total 760 1116.797 22.813 Output Total 200 200 Balance 760 916.797 -177.187 Intake: IV 160 1000 0.9 160 1000 Intake, IV Titration 16.797 22.813 Amount Norepinephrin 16 mg-0.9% 16.797 10.313 Ns Pmx 16 mg In 250 ml @ Titrate IV .Q0M [facility] Rx#: [id number] Piperacillin-Tazobactam 3 12.5 .375 gm In Dextrose/Water 1 50ml.bag @ 12.5 mls/hr IVPB Q8HR [facility] Rx#: [id number] Oral 600 100 Output: Urine 200 200 Other: Voiding Method Diaper Diaper # Voids 1 Weight 117.5 kg 01/16/17 13:29 01/16/17 13:29 EKG Interpretations (text) EKG shows normal sinus rhythm with nonspecific T-wave changes. Assessment and Plan Plan: This patient has a acute respiratory failure with acute CO2 narcosis. Patient has evidence of significant the hypotensive rule out any underlying sepsis has been receiving fluids and the Levophed. Patient is a borderline elevation in the troponin which could be secondary to his hypotension and hypoxia is not suggestive for acute coronary syndrome continue the supportive care at present.
[2017-01-16 18:16] LABS: Glucose,Whole Blood 107 mg/dL (75-99)
[2017-01-16 19:48] LABS: Hemoglobin A1C 5.4 % (4.2-6.1)
[2017-01-16] MEDS: BENZTROPINE MESYLATE 1 MG TAB PO SCH (22:23)
[2017-01-16] MEDS: ATORVASTATIN 40 MG TAB PO SCH (22:23)
[2017-01-16] MEDS: CHLORHEXIDINE GLUCONATE 15 ML CUP MUCOUS MEM SCH (22:24)
[2017-01-16] MEDS: traZODone HCL 100 MG TAB PO SCH (22:24)
[2017-01-17 00:03] LABS: Glucose,Whole Blood 132 mg/dL (75-99)
[2017-01-17] MEDS: INSULIN LISPRO (humaLOG) 300 UNIT/3 ML VIAL SQ SCH ×4 (00:11→18:13)
[2017-01-17] MEDS: PIPERACILLIN-TAZOBACTAM 3.375 GM in DEXTROSE/WATER 1 50ML.BAG IVPB SCH ×3 (00:56→15:58)
[2017-01-17] MEDS: methylPREDNISolone SOD SUCCI 125 MG/2 ML VIAL IV SCH ×4 (00:57→18:10)
[2017-01-17] MEDS: SODIUM CHLORIDE 0.9% 1,000 ML IV SCH ×3 (00:57→11:45)
[2017-01-17 04:18] LABS: Anisocytosis Slight; Basophils % (A) 0 %; CH 24.6; CHCM 29.4; Eosinophils % (A) 0 %; HCT 35.7 % (39.0-53.0); HGB 10.8 gm/dL (13.0-17.5); Hypochromasia Marked; Luc # (Auto) 0.03; Luc % (Auto) 1; Lymphocytes # (A) 0.7 k/uL (1.0-4.8); Lymphocytes % (A) 14 %; MCH 25.3 pg (25.0-35.0); MCHC 30.1 g/dL (31.0-37.0); Monocytes # (A) 0.2 k/uL (0-1.0); Monocytes % (A) 3 %; Neutrophils # (A) 4.3 k/uL (1.3-7.7); Neutrophils % (A) 82 %; RBC 4.25 m/uL (4.30-5.90); RDW 16.5 % (11.5-15.5); WBC 5.3 k/uL (3.8-10.6)
[2017-01-17 04:33] LABS: Anion Gap 8 mmol/L; Blood Urea Nitrogen 28 mg/dL (9-20); Calcium 8.4 mg/dL (8.4-10.2); Carbon Dioxide 31 mmol/L (22-30); Chloride 100 mmol/L (98-107); Glucose 112 mg/dL (74-99); Non-African American GFR(MDRD) >60 (>60 ml/min/1.73 sqM); Potassium 5.1 mmol/L (3.5-5.1); Sodium 139 mmol/L (137-145)
[2017-01-17 04:48] LABS: Manual Review Performed; Polychromasia Present
[2017-01-17 05:02] LABS: ABG HCO3 32 mmol/L (21-25); ABG Oxygen Saturation 98.7 % (94-97); ABG PCO2 42 mmHg (35-45); ABG PH 7.49 (7.35-7.45); ABG PO2 112 mmHg (83-108); ABG TCO2 33 mmol/L (19-24)
[2017-01-17 05:14] LABS: Phosphorous 3.1 mg/dL (2.5-4.5)
[2017-01-17 06:15] LABS: Glucose,Whole Blood 118 mg/dL (75-99)
[2017-01-17] MEDS: PROPOFOL 500 MG in EMPTY BAG 1 BAG IV SCH ×9 (06:59→23:43)
[2017-01-17] MEDS: CHLORHEXIDINE GLUCONATE 15 ML CUP MUCOUS MEM SCH ×2 (08:04→21:27)
[2017-01-17] MEDS: ARIPiprazole 15 MG TAB PO SCH (08:04)
[2017-01-17] MEDS: ENOXAPARIN 40 MG/0.4 ML SYRINGE SQ SCH (08:04)
[2017-01-17] MEDS: ASPIRIN 81 MG CHEW PO SCH (08:04)
[2017-01-17] MEDS: NAPROXEN 250 MG TAB PO SCH ×2 (08:04→21:28)
[2017-01-17] MEDS: FERROUS SULFATE 325 MG TAB PO SCH ×3 (08:04→21:28)
[2017-01-17] MEDS: lamoTRIgine 100 MG TAB PO SCH ×2 (08:04→21:28)
[2017-01-17] MEDS: PANTOPRAZOLE 40 MG/10 ML VIAL IVP SCH (08:05)
--- NOTE | 2017-01-17 08:05 | XR ---
EXAMINATION TYPE: XR chest 1V DATE OF EXAM: 01/17/2017 COMPARISON: 01/16/2017 INDICATION: VDRF TECHNIQUE: Single frontal view of the chest is obtained. FINDINGS: The heart size is mildly prominent. The pulmonary vasculature is normal. There is an infiltrate at the right lower lobe. Small right pleural effusion may be present. Minimal fluid at the left costophrenic angle is present. Endotracheal tube is been pulled back currently has its tip 6.2 cm above the deepak. Left central myra ous catheter is present with the tip in the superior vena cava region. Nasogastric tube transverses t he thorax, distal tip is out of the [id number]. IMPRESSION: 1. Stable right lower lobe infiltrate. 2. Minimal pleural fluid collections. 3. Lines and catheters discussed above.
--- NOTE | 2017-01-17 09:21 | P.PN ---
Subjective A 71-year-old male patient, morbidly obese with advanced COPD and a chronic smoking history along with a long-term psychiatric history probably including a combination of depression and PTSD who has been living in a fdc. The patient came in yesterday to the hospital because of altered mentation and generalized body weakness. Not much of information is available. Emergency was not able to obtain information from this patient as the patient was not able to volunteer any information. The patient was sent in because he was too weak to stand and his weakness was both in upper and lower extremities without having any focal neurological deficit. His brother was in and he told us that he is usually awake and alert and communicative. He lives in a fdc due to his underlying psychiatric conditions. The patient was initially admitted to the medical floor and he was given a diagnosis of an underlying pneumonia. Earlier this morning he was alert and responsive and he had several conversations with the nurses and around 1 PM this afternoon the patient became acutely unresponsive and an emergency consultation was requested by pulmonary and critical care. I came at the bedside and the patient was completely unresponsive. He had very shallow breathing. His blood pressure was low with a systolic in the mid 80s. He was not withdrawing to any painful stimuli. Pupils were about 3-4 mm in size and sluggishly reactive. At that point a immediate to move the patient intensive care unit. I had a brief discussion with the patient's brother. I and nondistended the patient has a public guardian. The patient does not have any advanced directives. Based on that, I immediately intubated the patient and put him on a mechanical ventilator. I put him on assist control mode at the rate of 16 with tidal volume 450 and FiO2 of 50% and a PEEP of 5. Blood gases that was done post intubation showed a pH of 7.06 with a pCO2 of 133 and pO2 of 96 and this was on FiO2 of 50%. Based on this, I kept the tidal volume of 450 increased the rate up to 24. The patient is currently sedated with Diprivan at 5 mics. He is quite hypotensive. Triple lumen catheter was inserted and the patient is being resuscitated IV fluids. The patient is also on pressors and currently levo fed is running at 30 mics. For at least to be inserted yet. NG tube was inserted. The patient had approximately 400-500 mL of gastric output which was clear and liquidy. No abdominal distention. No seizure activity. Going back to the labs, the patient had a normal white cell count this morning with a hemoglobin of 10.4. His coagulation profile was within normal. Creatinine was at 1.3 and a baseline creatinine is not known. He has chronic metabolic alkalosis probably compensatory to CO2 retention with a bicarb level of 36. Troponins were positive and there was a minimal amount of leak with a troponin of 0.08 and 0.127 respectively 2. BNP level was 7580. Echocardiogram was done earlier this morning showed a moderate concentric left ventricular hypertrophy with moderate degree of pulmonary hypertension with right ventricular systolic pressure of 53. The patient had also an ejection fraction of 45-50%. Mild aortic sclerosis. No mitral regurgitation. No pericardial effusion. CT angios the chest was also done and this showed moderate cardiomegaly with evidence of pulmonary hypertension. Some scattered groundglass changes and septal lines in the mid and the lower lung hernandez bilaterally consistent with CHF. There was a small to moderate-sized right-sided pleural effusion and a rounded masslike area of consolidation in the right lung base along with some volume loss probably related to around atelectasis. There was respiratory motion. No evidence of any pulmonary embolism. CAT scan of the brain has not been done. On 01/17/2017 I'm seeing this patient in follow-up. Please refer to the vest occurred yesterday. The patient got intubated and placed on a mechanical ventilator. He was completely unresponsive and he was in CO2 narcosis. CAT scan of the brain was done and it did not show any acute abnormalities. The pCO2 was quite elevated. The patient was treated for an acute COPD exacerbation with a combination of bronchodilators and steroids and antibiotics. The most recent vent setting includes an assist-control mode at the rate of 24, tidal volume 450, FiO2 of 40% and a PEEP of 5. Blood gases from earlier this morning shows a component of respiratory acidosis with a pH of 7.49 and pCO2 of 41 and pO2 112. Chest x-ray showed limited infiltration of the right lung base. The peak air pressures around 27. Static pressures around 17. Based on this, I dropped the tidal volume down to the 400s and the respiratory rate down to 18. No significant orotracheal secretions. The patient is more active while being sedated with Diprivan. He is moving all 4 extremities. Would in the process of getting this patient is patient holiday. I do not think he is ready for weaning or extubation yet. I would like to give another 24 hours to optimize further his COPD with a combination of treatments. Note that the patient was also profoundly hypotensive. He required high-dose pressors and this was gradually weaned off and discontinued yesterday. Currently he is on normal saline at the rate of 100 mL an hour. He is also off pressors since yesterday. Is producing adequate amount of urine output. The renal function is stable with a creatinine of 1.1. He is afebrile. He is covered with broad-spectrum antibiotics. She'll feeds will be also initiated today. Objective - Vital Signs Vital signs: Vital Signs Temp 98.5 F 01/17/17 08:00 Pulse 67 01/17/17 08:00 Resp 24 01/17/17 08:00 BP 120/66 01/17/17 08:00 Pulse Ox 97 01/17/17 08:00 Intake & Output 01/16/17 01/17/17 01/17/17 18:59 06:59 18:59 Intake Total 8547.885 1734.0 291.855 Output Total 1030 930 175 Balance 504.611 456.0 116.855 Weight 117.8 kg Intake: IV 1300 1286.0 228.0 0.9 1300 1200 200 Piperacillin-Tazobactam 3 50.0 25.0 .375 gm In Dextrose/Water 1 50ml.bag @ 12.5 mls/hr IVPB Q8HR [facility] Rx#: [id number] Pressure bag 36 3 Intake, IV Titration 134.611 100 63.855 Amount Norepinephrin 16 mg-0.9% 34.611 Ns Pmx 16 mg In 250 ml @ Titrate IV .Q0M [facility] Rx#: [id number] Piperacillin-Tazobactam 3 50.0 .375 gm In Dextrose/Water 1 50ml.bag @ 12.5 mls/hr IVPB Q8HR [facility] Rx#: [id number] Propofol 500 mg In Empty 50 100 63.855 Bag 1 bag @ Titrate IV . Q0M [facility] Rx#:[id number] Oral 100 Output: Gastric Drainage 350 Urine 680 930 175 Other: Voiding Method Indwelling Catheter Indwelling Catheter Indwelling Catheter ABP, PAP, CO, CI - Last Documented Arterial Blood Pressure 130/57 - Exam Obese, comfortable on mechanical ventilator intubated with an orotracheal and orogastric tube are both in place.Head exam was generally normal. There was no scleral icterus or corneal arcus. Mucous membranes were moist. Oral GE and ET tube are both in place. Neck is supple and there is no JVDs no goiter or neck masses this point. Lung sounds are diminished and this is scattered rhonchi and scattered external wheezes bilaterally. Breath sounds are equal and symmetrical as the patient is synchronous with the mechanical ventilator. Heart sounds shows accentuation of the second heart sounds. The rhythm is regular. Positive S1-S2. No significant murmurs appreciated. Abdomen is obese soft nontender. No direct tenderness or rebound tensile guarding. Extremities +1 edema there is no cyanosis or clubbing at this point. Neurologically patient is sedated. Not withdrawing to any painful stimuli this point. He is on a 5 mics of Diprivan. No facial asymmetry. Pupils around 4-5 mm in size. - Labs CBC & Chem 7: 01/17/17 03:57 01/17/17 03:57 Labs: Abnormal Lab Results - Last 24 Hours (Table) 01/16/17 01/16/17 01/16/17 Range/Units 12:26 12:52 13:05 WBC (3.8-10.6) k/uL RBC (4.30-5.90) m/uL Hgb (13.0-17.5) gm/dL Hct (39.0-53.0) % MCHC (31.0-37.0) g/dL RDW (11.5-15.5) % Neutrophils # (1.3-7.7) k/uL Lymphocytes # (1.0-4.8) k/uL ABG pH 7.06 L* (7.35-7.45) ABG pCO2 >125 H* (35-45) mmHg ABG pO2 (83-108) mmHg ABG HCO3 36 H (21-25) mmol/L ABG Total CO2 40 H (19-24) mmol/L ABG O2 Saturation 92.0 L (94-97) % Carbon Dioxide (22-30) mmol/L BUN (9-20) mg/dL Creatinine (0.66-1.25) mg/dL Glucose (74-99) mg/dL POC Glucose (mg/dL) 205 H 207 H (75-99) mg/dL Calcium (8.4-10.2) mg/dL Phosphorus (2.5-4.5) mg/dL Troponin I (0.000-0.034) ng/mL 01/16/17 01/16/17 01/16/17 Range/Units 13:29 13:29 13:29 WBC 11.3 H (3.8-10.6) k/uL RBC 4.24 L (4.30-5.90) m/uL Hgb 10.9 L (13.0-17.5) gm/dL Hct 37.5 L (39.0-53.0) % MCHC 29.0 L (31.0-37.0) g/dL RDW 16.2 H (11.5-15.5) % Neutrophils # 10.2 H (1.3-7.7) k/uL Lymphocytes # 0.8 L (1.0-4.8) k/uL ABG pH (7.35-7.45) ABG pCO2 (35-45) mmHg ABG pO2 (83-108) mmHg ABG HCO3 (21-25) mmol/L ABG Total CO2 (19-24) mmol/L ABG O2 Saturation (94-97) % Carbon Dioxide 36 H (22-30) mmol/L BUN 27 H (9-20) mg/dL Creatinine 1.35 H (0.66-1.25) mg/dL Glucose 163 H (74-99) mg/dL POC Glucose (mg/dL) (75-99) mg/dL Calcium 7.9 L (8.4-10.2) mg/dL Phosphorus 6.4 H (2.5-4.5) mg/dL Troponin I 0.088 H* (0.000-0.034) ng/mL 01/16/17 01/16/17 01/17/17 Range/Units 15:36 18:13 00:01 WBC (3.8-10.6) k/uL RBC (4.30-5.90) m/uL Hgb (13.0-17.5) gm/dL Hct (39.0-53.0) % MCHC (31.0-37.0) g/dL RDW (11.5-15.5) % Neutrophils # (1.3-7.7) k/uL Lymphocytes # (1.0-4.8) k/uL ABG pH (7.35-7.45) ABG pCO2 57 H (35-45) mmHg ABG pO2 (83-108) mmHg ABG HCO3 33 H (21-25) mmol/L ABG Total CO2 35 H (19-24) mmol/L ABG O2 Saturation (94-97) % Carbon Dioxide (22-30) mmol/L BUN (9-20) mg/dL Creatinine (0.66-1.25) mg/dL Glucose (74-99) mg/dL POC Glucose (mg/dL) 107 H 132 H (75-99) mg/dL Calcium (8.4-10.2) mg/dL Phosphorus (2.5-4.5) mg/dL Troponin I (0.000-0.034) ng/mL 01/17/17 01/17/17 01/17/17 Range/Units 03:57 03:57 04:52 WBC (3.8-10.6) k/uL RBC 4.25 L (4.30-5.90) m/uL Hgb 10.8 L (13.0-17.5) gm/dL Hct 35.7 L (39.0-53.0) % MCHC 30.1 L (31.0-37.0) g/dL RDW 16.5 H (11.5-15.5) % Neutrophils # (1.3-7.7) k/uL Lymphocytes # 0.7 L (1.0-4.8) k/uL ABG pH 7.49 H (7.35-7.45) ABG pCO2 (35-45) mmHg ABG pO2 112 H (83-108) mmHg ABG HCO3 32 H (21-25) mmol/L ABG Total CO2 33 H (19-24) mmol/L ABG O2 Saturation 98.7 H (94-97) % Carbon Dioxide 31 H (22-30) mmol/L BUN 28 H (9-20) mg/dL Creatinine (0.66-1.25) mg/dL Glucose 112 H (74-99) mg/dL POC Glucose (mg/dL) (75-99) mg/dL Calcium (8.4-10.2) mg/dL Phosphorus (2.5-4.5) mg/dL Troponin I (0.000-0.034) ng/mL 01/17/17 Range/Units 06:11 WBC (3.8-10.6) k/uL RBC (4.30-5.90) m/uL Hgb (13.0-17.5) gm/dL Hct (39.0-53.0) % MCHC (31.0-37.0) g/dL RDW (11.5-15.5) % Neutrophils # (1.3-7.7) k/uL Lymphocytes # (1.0-4.8) k/uL ABG pH (7.35-7.45) ABG pCO2 (35-45) mmHg ABG pO2 (83-108) mmHg ABG HCO3 (21-25) mmol/L ABG Total CO2 (19-24) mmol/L ABG O2 Saturation (94-97) % Carbon Dioxide (22-30) mmol/L BUN (9-20) mg/dL Creatinine (0.66-1.25) mg/dL Glucose (74-99) mg/dL POC Glucose (mg/dL) 118 H (75-99) mg/dL Calcium (8.4-10.2) mg/dL Phosphorus (2.5-4.5) mg/dL Troponin I (0.000-0.034) ng/mL Microbiology - Last 24 Hours (Table) 01/16/17 14:30 Urine Culture - Preliminary Urine,Catheterized 01/15/17 17:15 Blood Culture - Preliminary Blood No Growth after 24 hours Assessment and Plan Plan: Assessment 1 acute unresponsiveness, multifactorial. The altered mentation was most likely due to acute hypercapnic respiratory failure and CO2 narcosis. The CAT scan of the brain was negative. The patient is currently intubated on a mechanical ventilator. A sedation holiday is to follow today. 2 acute respiratory failure. The patient has an acute hypercapnic respiratory failure probably related to COPD. Superimposed CHF/pneumonia cannot be completely excluded. 3 acute respiratory failure requiring intubation mechanical ventilation. 4 shock, improved and the patient's blood pressure normalizes. Ejection fraction is around 40-45%. Currently off pressors. 5 right-sided pleural effusion [id number] in size 6 right basilar ground atelectasis 7 acute kidney injury, improving and the creatinine is down to 1.1 and the patient is producing adequate amount of urine output 8 obesity. 9 chronic psychotic disorder with multiple psychotropic medication including a combination of trazodone, Abilify, Cogentin and Lamictal. Rule out underlying depression. Rule out underlying PTSD. Rule out underlying bipolar disorder 10 COPD 11 chronic smoker 12 hypertension 13 hyperlipidemia Plan Keep the patient on mechanical ventilator. The blood gases and the necessity vent changes were done. We noticed a component of respiratory alkalosis. I would suggest that the patient's pCO2 is probably within the 50-60 range. I dropped the tidal volume to 400. A also dropped the rate down to 18. We'll continue the bronchial dilators and steroids. The patient will be kept on IV Zosyn and Levaquin for now. We'll IV Fluids to KVO. Initiate Tube Feeds. Give the Patient Sedation Holiday and Assess Mental Status. No Weaning for Today. We'll Give the Patient Another 24 Hours on a Mechanical Ventilator to Optimize His COPD and pneumonia. We'll continue to follow make further recommendations based on his progress. Condition is still critical. Critically care evaluation more than 30 minutes. Time with Patient: Greater than 30
--- NOTE | 2017-01-17 10:29 | P.PN ---
Subjective Principal diagnosis: Hypoxic respiratory failure, positive troponins and mild cardiomyopathy Patient's remains intubated with respiratory support. No cardiac issues. No cardiac arrhythmias. We'll continue current medical therapy. Patient is sedated Objective - Vital Signs Vital signs: Vital Signs Temp 98.5 F 01/17/17 08:00 Pulse 69 01/17/17 10:00 Resp 18 01/17/17 10:00 BP 106/58 01/17/17 10:00 Pulse Ox 97 01/17/17 10:00 Intake & Output 01/16/17 01/17/17 01/17/17 18:59 06:59 18:59 Intake Total 5097.660 0940.0 330.516 Output Total 1030 930 210 Balance 504.611 456.0 120.516 Weight 117.8 kg Intake: IV 1300 1286.0 250.5 0.9 1300 1200 210 Piperacillin-Tazobactam 3 50.0 37.5 .375 gm In Dextrose/Water 1 50ml.bag @ 12.5 mls/hr IVPB Q8HR [facility] Rx#: [id number] Pressure bag 36 3 Intake, IV Titration 134.611 100 80.016 Amount Norepinephrin 16 mg-0.9% 34.611 Ns Pmx 16 mg In 250 ml @ Titrate IV .Q0M [facility] Rx#: [id number] Piperacillin-Tazobactam 3 50.0 .375 gm In Dextrose/Water 1 50ml.bag @ 12.5 mls/hr IVPB Q8HR [facility] Rx#: [id number] Propofol 500 mg In Empty 50 100 80.016 Bag 1 bag @ Titrate IV . Q0M [facility] Rx#:[id number] Oral 100 Output: Gastric Drainage 350 Urine 680 930 210 Other: Voiding Method Indwelling Catheter Indwelling Catheter Indwelling Catheter ABP, PAP, CO, CI - Last Documented Arterial Blood Pressure 135/55 - Exam GENERAL EXAM: Patient is intubated and sedated HEENT: Normocephalic. Normal reaction of pupils, equal size, normal range of extraocular motion. No erythema or exudates in the throat. NECK: No masses, no nuchal rigidity. CHEST: No chest wall deformity. LUNGS: Diminished breath sounds HEART: S1 and S2 normal with no audible mumurs or gallops. Regular rhythm, femorals equal on both sides.. ABDOMEN: No hepatosplenomegaly, normal bowel sounds, no guarding or rigidity. SKIN: No rashes CENTRAL NERVOUS SYSTEM: Intubated and sedated EXTREMITIES: No cyanosis, clubbing or edema. - Labs CBC & Chem 7: 01/17/17 03:57 01/17/17 03:57 Labs: Abnormal Lab Results - Last 24 Hours (Table) 01/16/17 01/16/17 01/16/17 Range/Units 12:26 12:52 13:05 WBC (3.8-10.6) k/uL RBC (4.30-5.90) m/uL Hgb (13.0-17.5) gm/dL Hct (39.0-53.0) % MCHC (31.0-37.0) g/dL RDW (11.5-15.5) % Neutrophils # (1.3-7.7) k/uL Lymphocytes # (1.0-4.8) k/uL ABG pH 7.06 L* (7.35-7.45) ABG pCO2 >125 H* (35-45) mmHg ABG pO2 (83-108) mmHg ABG HCO3 36 H (21-25) mmol/L ABG Total CO2 40 H (19-24) mmol/L ABG O2 Saturation 92.0 L (94-97) % Carbon Dioxide (22-30) mmol/L BUN (9-20) mg/dL Creatinine (0.66-1.25) mg/dL Glucose (74-99) mg/dL POC Glucose (mg/dL) 205 H 207 H (75-99) mg/dL Calcium (8.4-10.2) mg/dL Phosphorus (2.5-4.5) mg/dL Troponin I (0.000-0.034) ng/mL 01/16/17 01/16/17 01/16/17 Range/Units 13:29 13:29 13:29 WBC 11.3 H (3.8-10.6) k/uL RBC 4.24 L (4.30-5.90) m/uL Hgb 10.9 L (13.0-17.5) gm/dL Hct 37.5 L (39.0-53.0) % MCHC 29.0 L (31.0-37.0) g/dL RDW 16.2 H (11.5-15.5) % Neutrophils # 10.2 H (1.3-7.7) k/uL Lymphocytes # 0.8 L (1.0-4.8) k/uL ABG pH (7.35-7.45) ABG pCO2 (35-45) mmHg ABG pO2 (83-108) mmHg ABG HCO3 (21-25) mmol/L ABG Total CO2 (19-24) mmol/L ABG O2 Saturation (94-97) % Carbon Dioxide 36 H (22-30) mmol/L BUN 27 H (9-20) mg/dL Creatinine 1.35 H (0.66-1.25) mg/dL Glucose 163 H (74-99) mg/dL POC Glucose (mg/dL) (75-99) mg/dL Calcium 7.9 L (8.4-10.2) mg/dL Phosphorus 6.4 H (2.5-4.5) mg/dL Troponin I 0.088 H* (0.000-0.034) ng/mL 01/16/17 01/16/17 01/17/17 Range/Units 15:36 18:13 00:01 WBC (3.8-10.6) k/uL RBC (4.30-5.90) m/uL Hgb (13.0-17.5) gm/dL Hct (39.0-53.0) % MCHC (31.0-37.0) g/dL RDW (11.5-15.5) % Neutrophils # (1.3-7.7) k/uL Lymphocytes # (1.0-4.8) k/uL ABG pH (7.35-7.45) ABG pCO2 57 H (35-45) mmHg ABG pO2 (83-108) mmHg ABG HCO3 33 H (21-25) mmol/L ABG Total CO2 35 H (19-24) mmol/L ABG O2 Saturation (94-97) % Carbon Dioxide (22-30) mmol/L BUN (9-20) mg/dL Creatinine (0.66-1.25) mg/dL Glucose (74-99) mg/dL POC Glucose (mg/dL) 107 H 132 H (75-99) mg/dL Calcium (8.4-10.2) mg/dL Phosphorus (2.5-4.5) mg/dL Troponin I (0.000-0.034) ng/mL 01/17/17 01/17/17 01/17/17 Range/Units 03:57 03:57 04:52 WBC (3.8-10.6) k/uL RBC 4.25 L (4.30-5.90) m/uL Hgb 10.8 L (13.0-17.5) gm/dL Hct 35.7 L (39.0-53.0) % MCHC 30.1 L (31.0-37.0) g/dL RDW 16.5 H (11.5-15.5) % Neutrophils # (1.3-7.7) k/uL Lymphocytes # 0.7 L (1.0-4.8) k/uL ABG pH 7.49 H (7.35-7.45) ABG pCO2 (35-45) mmHg ABG pO2 112 H (83-108) mmHg ABG HCO3 32 H (21-25) mmol/L ABG Total CO2 33 H (19-24) mmol/L ABG O2 Saturation 98.7 H (94-97) % Carbon Dioxide 31 H (22-30) mmol/L BUN 28 H (9-20) mg/dL Creatinine (0.66-1.25) mg/dL Glucose 112 H (74-99) mg/dL POC Glucose (mg/dL) (75-99) mg/dL Calcium (8.4-10.2) mg/dL Phosphorus (2.5-4.5) mg/dL Troponin I (0.000-0.034) ng/mL 01/17/17 Range/Units 06:11 WBC (3.8-10.6) k/uL RBC (4.30-5.90) m/uL Hgb (13.0-17.5) gm/dL Hct (39.0-53.0) % MCHC (31.0-37.0) g/dL RDW (11.5-15.5) % Neutrophils # (1.3-7.7) k/uL Lymphocytes # (1.0-4.8) k/uL ABG pH (7.35-7.45) ABG pCO2 (35-45) mmHg ABG pO2 (83-108) mmHg ABG HCO3 (21-25) mmol/L ABG Total CO2 (19-24) mmol/L ABG O2 Saturation (94-97) % Carbon Dioxide (22-30) mmol/L BUN (9-20) mg/dL Creatinine (0.66-1.25) mg/dL Glucose (74-99) mg/dL POC Glucose (mg/dL) 118 H (75-99) mg/dL Calcium (8.4-10.2) mg/dL Phosphorus (2.5-4.5) mg/dL Troponin I (0.000-0.034) ng/mL Microbiology - Last 24 Hours (Table) 01/16/17 14:30 Urine Culture - Preliminary Urine,Catheterized 01/15/17 17:15 Blood Culture - Preliminary Blood No Growth after 24 hours Assessment and Plan (1) Acute respiratory failure Status: Acute (2) Troponin level elevated Status: Acute Plan: This patient is being treated for respiratory failure and possible sepsis syndrome. No acute cardiac issues. Elevation of troponin values could be secondary to hypoxia. We'll continue to follow the patient as needed
[2017-01-17 11:15] LABS: Glucose,Whole Blood 123 mg/dL (75-99)
[2017-01-17] MEDS: LEVOFLOXACIN 750MG-D5W PMX 750 MG in DEXTROSE/WATER 1 150ML.BAG IVPB SCH (12:15)
--- NOTE | 2017-01-17 15:15 | HP ---
CHIEF COMPLAINT: Weakness HISTORY OF PRESENT ILLNESS: This 71-year-old gentleman was being followed by Dr. Daugherty as outpatient, was brought to [facility] with complaints of progressive weakness. The patient had a significant medical history of mental illness according to the brother and the specific details are not known at this time. The patient was so weak in both legs and unable to ambulate. The patient did not have any cough or any sputum, however, the labs show multiple abnormalities including anemia, mild renal failure and troponin elevated to 0.082 and some hyaline cast and some dehydration. The patient also had the chest x-ray which showed possible right lower lobe infiltrate and a chest CTA was also done. The BNP is not available. Chest CT shows multiple abnormalities but no evidence of pulmonary embolism. Moderate cardiomegaly and pulmonary hypertension was noted. Mild CHF was mentioned as a differential diagnosis. Right pleural effusion also noted. Rounded mass-like consolidation with pleural within the right lower lobe also noted. There is no history of fever or rigors. No history of headache, loss of consciousness. The patient has some which the patient was having for several years after coming back from the war according to history. PAST MEDICAL HISTORY: History of mental illness as mentioned earlier. HOME MEDICATIONS: Tylenol 500 mg q6 hours p.r.n., Trazodone 100 mg q.h.s., Naprosyn 500 mg b.i.d., Zestril 10 mg p.o. daily, Lipitor 40 mg, Lamictal 100 mg p.o. b.i.d., Lasix 40 mg, iron sulfate 325 mg daily, Valium 5 mg t.i.d., Cogentin 2 mg q h.s., Abilify 30 mg p.o. daily. ALLERGIES: None. FAMILY HISTORY: No history of heart attacks of strokes in the family. SOCIAL HISTORY: As mentioned earlier, otherwise, smoking. REVIEW OF SYSTEMS: ENT: Diminished hearing and diminished vision. CARDIOVASCULAR: No angina or palpitation. RESPIRATORY: As mentioned earlier. GI: No nausea. : No dysuria. NERVOUS SYSTEM: No numbness or weakness. MUSCULOSKELETAL: As mentioned earlier. HEMATOLOGY: None. ENDOCRINE: No history of diabetes or hypothyroidism. CONSTITUTIONAL: As mentioned earlier. PSYCHIATRIC: As mentioned earlier. PHYSICAL EXAMINATION: Alert and oriented times 3. Pulse 84, blood pressure 103/ 60, respirations 18, temperature 97.0, pulse ox 94% on 5 liters. HEENT: Conjunctivae normal. Oral mucosa moist. NECK: No jugular venous distention or lymph node enlargement. CARDIOVASCULAR: S1, S2. RESPIRATORY: Diminished breath sounds at the bases. Bilateral scattered rhonchi and crackles. Expiratory wheezing also present. ABDOMEN: Soft, obese, nontender. No mass palpable. No hepatosplenomegaly. LEGS: No edema. NERVOUS SYSTEM: Higher functions as mentioned. Moves all four limbs. Mildly diffusely weak. LYMPHATICS: No lymph node enlargement in the neck or axilla. LABS: WBC 7.7, hemoglobin 11.2. Sodium 130, potassium 4.6 and creatinine is 1.38. Troponin 0.082. ASSESSMENT: 1. Generalized weakness bilaterally for evaluation. 2. Possible right lower lobe pneumonia. 3. Rule out congestive heart failure. 4. Troponin 0.082, indeterminate. 5. Increased creatinine with possible acute renal failure, possibly prerenal secondary to acute tubular necrosis and dehydration. 6. Anemia, normocytic anemia of chronic disease. 7. Obesity, body mass index 32.5. 8. History of mental illness. 9. Hypertension history. 10. Hyperlipidemia. 11. Gait dysfunction. DISCUSSION: This 71-year-old gentleman with symptomatic complex medical issues. We will monitor the patient closely, continue the current medication, continue symptomatic treatment. Otherwise, at this time I recommend broad spectrum IV antibiotics, resume home medications, cardiology and pulmonary consultations. Would also recommend a 2D echo with Doppler. BNP has been recommended. Prognosis guarded because of multiple complex medical issues. Psychiatric evaluation will also be done for continued follow up. Further recommendations to follow. MTDD
[2017-01-17 18:13] LABS: Glucose,Whole Blood 126 mg/dL (75-99)
[2017-01-17] MEDS: ATORVASTATIN 40 MG TAB PO SCH (21:24)
[2017-01-17] MEDS: BENZTROPINE MESYLATE 1 MG TAB PO SCH (21:27)
[2017-01-17] MEDS: traZODone HCL 100 MG TAB PO SCH (21:27)
[2017-01-18] MEDS: PIPERACILLIN-TAZOBACTAM 3.375 GM in DEXTROSE/WATER 1 50ML.BAG IVPB SCH ×3 (00:46→17:31)
[2017-01-18] MEDS: methylPREDNISolone SOD SUCCI 125 MG/2 ML VIAL IV SCH ×4 (00:46→17:34)
[2017-01-18 00:54] LABS: Glucose,Whole Blood 134 mg/dL (75-99)
[2017-01-18] MEDS: INSULIN LISPRO (humaLOG) 300 UNIT/3 ML VIAL SQ SCH ×4 (00:54→17:34)
[2017-01-18 05:07] LABS: ABG PCO2 62 mmHg (35-45); ABG PH 7.34 (7.35-7.45)
[2017-01-18 05:08] LABS: ABG Base Excess 5.6 mmol/L; ABG HCO3 32 mmol/L (21-25); ABG PO2 76 mmHg (83-108)
[2017-01-18 05:09] LABS: ABG Oxygen Saturation 96.5 % (94-97)
[2017-01-18] MEDS: PROPOFOL 500 MG in EMPTY BAG 1 BAG IV SCH ×3 (05:24→09:13)
[2017-01-18 06:02] LABS: Anisocytosis Slight; Basophils % (A) 0 %; CH 24.3; CHCM 28.6; Eosinophils % (A) 0 %; HCT 35.3 % (39.0-53.0); HDW 3.16; HGB 10.7 gm/dL (13.0-17.5); Hypochromasia Marked; Luc # (Auto) 0.08; Luc % (Auto) 1; Lymphocytes # (A) 0.6 k/uL (1.0-4.8); Lymphocytes % (A) 11 %; MCH 25.7 pg (25.0-35.0); MCHC 30.2 g/dL (31.0-37.0); MCV 85.3 fL (80.0-100.0); Mean Platelet Volume 7.8; Monocytes # (A) 0.3 k/uL (0-1.0); Monocytes % (A) 5 %; Neutrophils # (A) 4.8 k/uL (1.3-7.7); Neutrophils % (A) 83 %; RBC 4.14 m/uL (4.30-5.90); RDW 16.7 % (11.5-15.5); WBC 5.8 k/uL (3.8-10.6); WBC (Perox) 5.85
[2017-01-18 06:16] LABS: Anion Gap 6 mmol/L; Blood Urea Nitrogen 30 mg/dL (9-20); Calcium 8.3 mg/dL (8.4-10.2); Carbon Dioxide 32 mmol/L (22-30); Chloride 100 mmol/L (98-107); Glucose 127 mg/dL (74-99); Magnesium 2.4 mg/dL (1.6-2.3); Non-African American GFR(MDRD) >60 (>60 ml/min/1.73 sqM); Phosphorous 4.3 mg/dL (2.5-4.5); Potassium 5.1 mmol/L (3.5-5.1); Sodium 138 mmol/L (137-145)
[2017-01-18 07:07] LABS: Glucose,Whole Blood 139 mg/dL (75-99)
--- NOTE | 2017-01-18 07:54 | XR ---
EXAMINATION TYPE: XR chest 1V portable DATE OF EXAM: 01/18/2017 COMPARISON: 01/17/2017 INDICATION: Difficulty in breathing TECHNIQUE: Single frontal view of the chest is obtained. FINDINGS: The heart size is enlarged. The pulmonary vasculature is normal. There is an opacification over the right lower lung field. Small right pleural effusion is present. M inimal left pleural effusion is likely present. Endotracheal tube is present with the tip above the deepak. Nasogastric tube transverses the field-of -view with the tip in left upper quadrant of the abdomen. Left central venous catheter is present wit h the tip in the superior vena cava region. No pneumothorax is evident. EKG leads overlie the chest. IMPRESSION: 1. Small bilateral pleural effusions. 2. Right lower lobe infiltrate. 3. Multiple lines and catheters discussed above
[2017-01-18] MEDS: PANTOPRAZOLE 40 MG/10 ML VIAL IVP SCH (08:03)
[2017-01-18] MEDS: ENOXAPARIN 40 MG/0.4 ML SYRINGE SQ SCH (08:03)
[2017-01-18] MEDS: CHLORHEXIDINE GLUCONATE 15 ML CUP MUCOUS MEM SCH (08:03)
[2017-01-18] MEDS: ASPIRIN 81 MG CHEW PO SCH (08:04)
[2017-01-18] MEDS: FERROUS SULFATE 325 MG TAB PO SCH ×3 (08:04→21:08)
[2017-01-18] MEDS: NAPROXEN 250 MG TAB PO SCH ×2 (08:04→21:09)
[2017-01-18] MEDS: lamoTRIgine 100 MG TAB PO SCH ×2 (08:06→21:09)
[2017-01-18] MEDS: ARIPiprazole 15 MG TAB PO SCH (08:06)
[2017-01-18] MEDS ORDERED: FUROSEMIDE 10 MG/ML 4 ML VIAL IV STA (08:50)
--- NOTE | 2017-01-18 08:56 | P.PN ---
Subjective A 71-year-old male patient, morbidly obese with advanced COPD and a chronic smoking history along with a long-term psychiatric history probably including a combination of depression and PTSD who has been living in a snf. The patient came in yesterday to the hospital because of altered mentation and generalized body weakness. Not much of information is available. Emergency was not able to obtain information from this patient as the patient was not able to volunteer any information. The patient was sent in because he was too weak to stand and his weakness was both in upper and lower extremities without having any focal neurological deficit. His brother was in and he told us that he is usually awake and alert and communicative. He lives in a snf due to his underlying psychiatric conditions. The patient was initially admitted to the medical floor and he was given a diagnosis of an underlying pneumonia. Earlier this morning he was alert and responsive and he had several conversations with the nurses and around 1 PM this afternoon the patient became acutely unresponsive and an emergency consultation was requested by pulmonary and critical care. I came at the bedside and the patient was completely unresponsive. He had very shallow breathing. His blood pressure was low with a systolic in the mid 80s. He was not withdrawing to any painful stimuli. Pupils were about 3-4 mm in size and sluggishly reactive. At that point a immediate to move the patient intensive care unit. I had a brief discussion with the patient's brother. I and nondistended the patient has a public guardian. The patient does not have any advanced directives. Based on that, I immediately intubated the patient and put him on a mechanical ventilator. I put him on assist control mode at the rate of 16 with tidal volume 450 and FiO2 of 50% and a PEEP of 5. Blood gases that was done post intubation showed a pH of 7.06 with a pCO2 of 133 and pO2 of 96 and this was on FiO2 of 50%. Based on this, I kept the tidal volume of 450 increased the rate up to 24. The patient is currently sedated with Diprivan at 5 mics. He is quite hypotensive. Triple lumen catheter was inserted and the patient is being resuscitated IV fluids. The patient is also on pressors and currently levo fed is running at 30 mics. For at least to be inserted yet. NG tube was inserted. The patient had approximately 400-500 mL of gastric output which was clear and liquidy. No abdominal distention. No seizure activity. Going back to the labs, the patient had a normal white cell count this morning with a hemoglobin of 10.4. His coagulation profile was within normal. Creatinine was at 1.3 and a baseline creatinine is not known. He has chronic metabolic alkalosis probably compensatory to CO2 retention with a bicarb level of 36. Troponins were positive and there was a minimal amount of leak with a troponin of 0.08 and 0.127 respectively 2. BNP level was 7580. Echocardiogram was done earlier this morning showed a moderate concentric left ventricular hypertrophy with moderate degree of pulmonary hypertension with right ventricular systolic pressure of 53. The patient had also an ejection fraction of 45-50%. Mild aortic sclerosis. No mitral regurgitation. No pericardial effusion. CT angios the chest was also done and this showed moderate cardiomegaly with evidence of pulmonary hypertension. Some scattered groundglass changes and septal lines in the mid and the lower lung hernandez bilaterally consistent with CHF. There was a small to moderate-sized right-sided pleural effusion and a rounded masslike area of consolidation in the right lung base along with some volume loss probably related to around atelectasis. There was respiratory motion. No evidence of any pulmonary embolism. CAT scan of the brain has not been done. On 01/17/2017 I'm seeing this patient in follow-up. Please refer to the vest occurred yesterday. The patient got intubated and placed on a mechanical ventilator. He was completely unresponsive and he was in CO2 narcosis. CAT scan of the brain was done and it did not show any acute abnormalities. The pCO2 was quite elevated. The patient was treated for an acute COPD exacerbation with a combination of bronchodilators and steroids and antibiotics. The most recent vent setting includes an assist-control mode at the rate of 24, tidal volume 450, FiO2 of 40% and a PEEP of 5. Blood gases from earlier this morning shows a component of respiratory acidosis with a pH of 7.49 and pCO2 of 41 and pO2 112. Chest x-ray showed limited infiltration of the right lung base. The peak air pressures around 27. Static pressures around 17. Based on this, I dropped the tidal volume down to the 400s and the respiratory rate down to 18. No significant orotracheal secretions. The patient is more active while being sedated with Diprivan. He is moving all 4 extremities. Would in the process of getting this patient is patient holiday. I do not think he is ready for weaning or extubation yet. I would like to give another 24 hours to optimize further his COPD with a combination of treatments. Note that the patient was also profoundly hypotensive. He required high-dose pressors and this was gradually weaned off and discontinued yesterday. Currently he is on normal saline at the rate of 100 mL an hour. He is also off pressors since yesterday. Is producing adequate amount of urine output. The renal function is stable with a creatinine of 1.1. He is afebrile. He is covered with broad-spectrum antibiotics. She'll feeds will be also initiated today. On 01/18/2017 the patient is being seen in follow-up. He remains intubated on a mechanical ventilator. Vent setting includes an assist-control mode at the rate of 15, FiO2 of 40% PEEP of 5 and tidal volume 400. Peak air pressures around 21. I:E ratio is 1-2.5. No significant bronchospasm wheezing on today' s evaluation. Chest x-ray shows small better pleural effusion and residual infiltration of the right lower lobe. ET tube is in a good location. No significant orotracheal secretions. No hypotension. Hemodynamically stable. Blood gases from today showed a pH of 7.34 with a pCO2 of 62 and pO2 of 76. The patient was given a sedation holiday yesterday and he was appropriate in terms of his arousal from sedation where he was over the 4 extremities without any limitation and he does follow some simple commands. He remains on Zosyn and Levaquin. No fever. No leukocytosis. No other major issues. She'll feeds will be stopped. Sedation will be held and would proceed with this point is breathing trial and hence patient for extubation today. Meanwhile, the patient be given a dose of Lasix 40 mg IV push to optimize the fluid balance. IV fluids are currently to KVO. Objective - Vital Signs Vital signs: Vital Signs Temp 97.7 F 01/18/17 08:00 Pulse 58 L 01/18/17 08:00 Resp 18 01/18/17 08:00 BP 97/54 01/18/17 08:00 Pulse Ox 96 01/18/17 08:00 Intake & Output 01/17/17 01/18/17 01/18/17 18:59 06:59 18:59 Intake Total 924.020 753.589 168.685 Output Total 1115 607 245 Balance -190.980 146.589 -76.315 Weight 117.8 kg Intake: IV 496.0 323.0 68.5 0.9 290 240 50 Levofloxacin 750Mg-D5w 100 Pmx 750 mg In Dextrose/ Water 1 150ml.bag @ 100 mls/hr IVPB Q24H [facility] Rx#: [id number] Piperacillin-Tazobactam 3 100.0 50.0 12.5 .375 gm In Dextrose/Water 1 50ml.bag @ 12.5 mls/hr IVPB Q8HR [facility] Rx#: [id number] Pressure bag 6 33 6 Intake, IV Titration 218.020 180.589 40.185 Amount Propofol 500 mg In Empty 218.020 180.589 40.185 Bag 1 bag @ Titrate IV . Q0M [facility] Rx#:[id number] Oral 150 Tube Feeding 60 180 60 Other 70 Output: Urine 1115 607 245 Other: Voiding Method Indwelling Catheter Indwelling Catheter Indwelling Catheter ABP, PAP, CO, CI - Last Documented Arterial Blood Pressure 144/61 - Exam Obese, comfortable on mechanical ventilator intubated with an orotracheal and orogastric tube are both in place.Head exam was generally normal. There was no scleral icterus or corneal arcus. Mucous membranes were moist. Oral GE and ET tube are both in place. Neck is supple and there is no JVDs no goiter or neck masses this point. Lung sounds are diminished and this is scattered rhonchi and scattered external wheezes bilaterally. Breath sounds are equal and symmetrical as the patient is synchronous with the mechanical ventilator. Heart sounds shows accentuation of the second heart sounds. The rhythm is regular. Positive S1-S2. No significant murmurs appreciated. Abdomen is obese soft nontender. No direct tenderness or rebound tensile guarding. Extremities +1 edema there is no cyanosis or clubbing at this point. Neurologically patient is sedated. Not withdrawing to any painful stimuli this point. He is on a 5 mics of Diprivan. No facial asymmetry. Pupils around 4-5 mm in size. - Labs CBC & Chem 7: 01/18/17 05:36 01/18/17 05:36 Labs: Abnormal Lab Results - Last 24 Hours (Table) 01/17/17 01/17/17 01/18/17 Range/Units 11:13 18:11 00:52 RBC (4.30-5.90) m/uL Hgb (13.0-17.5) gm/dL Hct (39.0-53.0) % MCHC (31.0-37.0) g/dL RDW (11.5-15.5) % Lymphocytes # (1.0-4.8) k/uL ABG pH (7.35-7.45) ABG pCO2 (35-45) mmHg ABG pO2 (83-108) mmHg ABG HCO3 (21-25) mmol/L Carbon Dioxide (22-30) mmol/L BUN (9-20) mg/dL Glucose (74-99) mg/dL POC Glucose (mg/dL) 123 H 126 H 134 H (75-99) mg/dL Calcium (8.4-10.2) mg/dL Magnesium (1.6-2.3) mg/dL 01/18/17 01/18/17 01/18/17 Range/Units 04:43 05:36 05:36 RBC 4.14 L (4.30-5.90) m/uL Hgb 10.7 L (13.0-17.5) gm/dL Hct 35.3 L (39.0-53.0) % MCHC 30.2 L (31.0-37.0) g/dL RDW 16.7 H (11.5-15.5) % Lymphocytes # 0.6 L (1.0-4.8) k/uL ABG pH 7.34 L (7.35-7.45) ABG pCO2 62 H (35-45) mmHg ABG pO2 76 L (83-108) mmHg ABG HCO3 32 H (21-25) mmol/L Carbon Dioxide 32 H (22-30) mmol/L BUN 30 H (9-20) mg/dL Glucose 127 H (74-99) mg/dL POC Glucose (mg/dL) (75-99) mg/dL Calcium 8.3 L (8.4-10.2) mg/dL Magnesium 2.4 H (1.6-2.3) mg/dL 01/18/17 Range/Units 07:04 RBC (4.30-5.90) m/uL Hgb (13.0-17.5) gm/dL Hct (39.0-53.0) % MCHC (31.0-37.0) g/dL RDW (11.5-15.5) % Lymphocytes # (1.0-4.8) k/uL ABG pH (7.35-7.45) ABG pCO2 (35-45) mmHg ABG pO2 (83-108) mmHg ABG HCO3 (21-25) mmol/L Carbon Dioxide (22-30) mmol/L BUN (9-20) mg/dL Glucose (74-99) mg/dL POC Glucose (mg/dL) 139 H (75-99) mg/dL Calcium (8.4-10.2) mg/dL Magnesium (1.6-2.3) mg/dL Microbiology - Last 24 Hours (Table) 01/16/17 14:30 Urine Culture - Final Urine,Catheterized 01/17/17 12:30 Gram Stain - Preliminary Sputum 01/15/17 17:15 Blood Culture - Preliminary Blood No Growth after 48 hours 01/16/17 14:05 Blood Culture - Preliminary Blood No Growth after 24 hours 01/16/17 13:47 Blood Culture - Preliminary Blood No Growth after 24 hours Assessment and Plan Plan: Assessment 1 acute unresponsiveness, multifactorial. The altered mentation was most likely due to acute hypercapnic respiratory failure and CO2 narcosis. The CAT scan of the brain was negative. The patient is currently intubated on a mechanical ventilator. In retrospect, the patient's respiratory failure and essentially due to COPD exacerbation and possibility of right lower lobe pneumonia. There is also a right-sided pleural effusion seen on previous CAT scans and the most current chest x-ray. 2 acute respiratory failure. The patient has an acute hypercapnic respiratory failure probably related to COPD. Superimposed CHF/pneumonia cannot be completely excluded. 3 acute respiratory failure requiring intubation mechanical ventilation. 4 shock, improved and the patient's blood pressure normalizes. Ejection fraction is around 40-45%. Currently off pressors. 5 right-sided pleural effusion [id number] in size 6 right basilar ground atelectasis 7 acute kidney injury, improving and the creatinine is down to 1.1 and the patient is producing adequate amount of urine output 8 obesity. 9 chronic psychotic disorder with multiple psychotropic medication including a combination of trazodone, Abilify, Cogentin and Lamictal. Rule out underlying depression. Rule out underlying PTSD. Rule out underlying bipolar disorder 10 COPD 11 chronic smoker 12 hypertension 13 hyperlipidemia Plan Give the patient 40 mg of IV Lasix. Keep the patient's fluids at KVO. Continue bronchodilators. Continue steroids. Continue antibiotics. Hold tube feeds. Hold sedation. Sedation holiday. Weaning parameters. If the weaning parameters are appropriate we'll give the patient is point is breathing trial. Anticipate extubation with the next 24-48 hours. Not much concerned about the respiratory acidosis seen in the blood gas. There is an acute on top of chronic and it'll improve as the patient's COPD exacerbation and pneumonia is appropriately treated. We'll continue to follow. Make further recommendation as the patient's is being treated in the ICU. This is a critically care evaluation. more than 30 minutes. Time with Patient: Greater than 30
[2017-01-18 11:08] LABS: Glucose,Whole Blood 135 mg/dL (75-99)
[2017-01-18] MEDS: SODIUM CHLORIDE 0.9% 1,000 ML IV SCH (11:08)
[2017-01-18 11:31] LABS: ABG Base Excess 5.9 mmol/L; ABG HCO3 31 mmol/L (21-25); ABG Oxygen Saturation 95.6 % (94-97); ABG PCO2 51 mmHg (35-45); ABG PH 7.39 (7.35-7.45); ABG PO2 81 mmHg (83-108); ABG TCO2 32 mmol/L (19-24)
[2017-01-18] MEDS: LEVOFLOXACIN 750MG-D5W PMX 750 MG in DEXTROSE/WATER 1 150ML.BAG IVPB SCH (12:13)
[2017-01-18 17:32] LABS: Glucose,Whole Blood 139 mg/dL (75-99)
[2017-01-18 20:12] LABS: Glucose,Whole Blood 134 mg/dL (75-99)
[2017-01-18] MEDS: traZODone HCL 100 MG TAB PO SCH (21:08)
[2017-01-18] MEDS: BENZTROPINE MESYLATE 1 MG TAB PO SCH (21:09)
[2017-01-18] MEDS: ATORVASTATIN 40 MG TAB PO SCH (21:09)
[2017-01-19 00:22] LABS: Glucose,Whole Blood 163 mg/dL (75-99)
[2017-01-19] MEDS: INSULIN LISPRO (humaLOG) 300 UNIT/3 ML VIAL SQ SCH ×4 (00:26→17:28)
[2017-01-19] MEDS: methylPREDNISolone SOD SUCCI 125 MG/2 ML VIAL IV SCH ×2 (00:27→06:17)
[2017-01-19] MEDS: PIPERACILLIN-TAZOBACTAM 3.375 GM in DEXTROSE/WATER 1 50ML.BAG IVPB SCH ×3 (00:28→16:31)
[2017-01-19 06:15] LABS: Glucose,Whole Blood 129 mg/dL (75-99)
[2017-01-19] MEDS: PANTOPRAZOLE 40 MG/10 ML VIAL IVP SCH (08:33)
[2017-01-19] MEDS: NAPROXEN 250 MG TAB PO SCH ×2 (08:33→22:16)
[2017-01-19] MEDS: ENOXAPARIN 40 MG/0.4 ML SYRINGE SQ SCH ×2 (08:33→08:42)
[2017-01-19] MEDS: ARIPiprazole 15 MG TAB PO SCH (08:34)
[2017-01-19] MEDS: lamoTRIgine 100 MG TAB PO SCH ×2 (08:35→22:17)
[2017-01-19] MEDS: ASPIRIN 81 MG CHEW PO SCH (08:35)
[2017-01-19] MEDS: FERROUS SULFATE 325 MG TAB PO SCH ×3 (08:35→22:15)
[2017-01-19 09:53] LABS: Anisocytosis Slight; Basophils % (A) 0 %; CH 24.9; CHCM 30.3; Eosinophils % (A) 0 %; HCT 37.3 % (39.0-53.0); HGB 11.3 gm/dL (13.0-17.5); Hypochromasia Marked; Luc # (Auto) 0.05; Luc % (Auto) 0; Lymphocytes # (A) 0.3 k/uL (1.0-4.8); Lymphocytes % (A) 3 %; MCH 25.1 pg (25.0-35.0); MCHC 30.3 g/dL (31.0-37.0); MCV 82.8 fL (80.0-100.0); Monocytes # (A) 0.4 k/uL (0-1.0); Monocytes % (A) 3 %; Neutrophils % (A) 94 %; RBC 4.51 m/uL (4.30-5.90); RDW 16.7 % (11.5-15.5); WBC 11.8 k/uL (3.8-10.6); WBC (Perox) 12.01
[2017-01-19 10:00] VITALS: BMI 34.0
[2017-01-19 10:06] LABS: Anion Gap 8 mmol/L; Blood Urea Nitrogen 31 mg/dL (9-20); Calcium 8.6 mg/dL (8.4-10.2); Carbon Dioxide 34 mmol/L (22-30); Chloride 102 mmol/L (98-107); Glucose 156 mg/dL (74-99); Magnesium 2.5 mg/dL (1.6-2.3); Non-African American GFR(MDRD) >60 (>60 ml/min/1.73 sqM); Phosphorous 2.3 mg/dL (2.5-4.5); Potassium 4.1 mmol/L (3.5-5.1); Sodium 144 mmol/L (137-145)
--- NOTE | 2017-01-19 11:07 | CDI ---
In responding to this query, please exercise your independent professional judgment. The [facility] Coding Staff and Clinical Documentation Specialists appreciate your assistance in clarifying documentation, maintaining compliance with coding guidelines, accurately documenting patients condition and capturing severity of illness. The fact that a question is asked does not imply that any particular answer is desired or expected. Communication forms are a method of clarifying documentation and are not made part of the Legal Health Record. Thank you in advance for your clarification. Last Revision, September 2015 Trixie Jameson [address] [place] [address] Documentation Clarification Form Date: 01/19/2017 10:32:00 AM From: Minna Gaines RN, CCDS Admit Date: 01/15/2017 4:40:00 PM Patient Name: Horacio Torres Visit Number: [id number] Discharge Date: Dr. Bobbi Goldstein Shocks is documented in the progress note on 01/16/17 and continue in your progress notes. Patient history/risk factors: Morbidly obese, Advanced COPD, PTSD, Chronic smoking, Clinical Indicators: Patient became acutely unresponsive, with shallow breathing. His pupils were 3-4 mm in size and sluggishly reactive. His blood pressure was low with a systolic in the mid 80's Vitals: 01/18/26 94 16 88 % Mechanical Vent Treatment: Intubation (Mechanical Vent support) Levophed drip ICU Monitoring Levaquin IV, Zosyn IV In your professional opinion, can you please specify the type of shock if known ? Septic Shock o Suspected or known causative organism o Any associated organ failure Cardiogenic Shock o Cause Hypovolemic Shock o Cause Other, please specify Unable to determine Please document in your progress, or as an addendum in order to capture severity of illness and risk of mortality. Include clinical findings that support your diagnosis. FYI: Press F11 to launch patient chart. Place X here if this finding has no clinical significance, is not applicable or if you are not able to provide any additional documentation. RICHARDD
[2017-01-19 11:40] LABS: Glucose,Whole Blood 217 mg/dL (75-99)
[2017-01-19] MEDS: LEVOFLOXACIN 750MG-D5W PMX 750 MG in DEXTROSE/WATER 1 150ML.BAG IVPB SCH (11:43)
--- NOTE | 2017-01-19 13:47 | P.CN ---
Psychiatric Consult - . Consult date: 01/19/17 Consult:: Patient was unresponsive, intubated and admitted to the ICU. Reconsulted after he was extubated. Nursing staff reports that patient is resistive to care, shouting, uncooperative. Patient in ICU bed, answers to his name, cooperative but gruff. Patient is a poor/unreliable historian Patient states that his brother brought him here because he was not doing well, states as he looks down at his legs and feet that things are better now. Patient cannot explain why he is on Abilify, then states that he is taking Zyprexa, and Ativan. Patient is a [place] . Denies receiving care at the [facility]. When asked why he is refusing care patient gets agitated stating "they better be telling the truth". Patient is unable to explain what he means, then goes on to say that his brother told him he better watch his manners. Patient states that he wants to get out of the hospital, and that he knows that he has to do what he is asked to do. States he'll take whatever medicine it was that he refused earlier today. Record reviews that patient did not sleep well last night. MSE: 71-year-old obese male edentulous, with today's lunch all over his front gown. Patient was alert to the year, gave December is the month but could not provide any other day or date. This is reasonable considering that he was unresponsive and intubated for several days. He knows that he is in the [facility]. Speech normal volume, at times loud, normal rate, decreased production. No pressured speech. Denies auditory or visual hallucinations. No delusions, + paranoia. Denies suicidal ideation. Denies homicidal ideation. ASSESSMENT: Patient receiving atypical antipsychotic for unknown reason, has a diagnosis of PTSD, that frequently will also have many mood symptoms associated. It is possible that this is the reason he is taking Abilify. However not unlike many [place] veterans, he is gruff and will use foul language. He is oriented to person place and year. No evidence of delirium at this point. No clear evidence of dementia. PTSD, by history, Rule out mood disorder, unspecified Plan: DC Abilify. Start start Zyprexa 5 mg at bedtime.
--- NOTE | 2017-01-19 14:47 | P.PN ---
Subjective Principal diagnosis: Acute hypercapnic respiratory failure requiring intubation and mechanical ventilation. A 71-year-old male patient, morbidly obese with advanced COPD and a chronic smoking history along with a long-term psychiatric history probably including a combination of depression and PTSD who has been living in a fdc. The patient came in yesterday to the hospital because of altered mentation and generalized body weakness. Not much of information is available. Emergency was not able to obtain information from this patient as the patient was not able to volunteer any information. The patient was sent in because he was too weak to stand and his weakness was both in upper and lower extremities without having any focal neurological deficit. His brother was in and he told us that he is usually awake and alert and communicative. He lives in a fdc due to his underlying psychiatric conditions. The patient was initially admitted to the medical floor and he was given a diagnosis of an underlying pneumonia. Earlier this morning he was alert and responsive and he had several conversations with the nurses and around 1 PM this afternoon the patient became acutely unresponsive and an emergency consultation was requested by pulmonary and critical care. I came at the bedside and the patient was completely unresponsive. He had very shallow breathing. His blood pressure was low with a systolic in the mid 80s. He was not withdrawing to any painful stimuli. Pupils were about 3-4 mm in size and sluggishly reactive. At that point a immediate to move the patient intensive care unit. I had a brief discussion with the patient's brother. I and nondistended the patient has a public guardian. The patient does not have any advanced directives. Based on that, I immediately intubated the patient and put him on a mechanical ventilator. I put him on assist control mode at the rate of 16 with tidal volume 450 and FiO2 of 50% and a PEEP of 5. Blood gases that was done post intubation showed a pH of 7.06 with a pCO2 of 133 and pO2 of 96 and this was on FiO2 of 50%. Based on this, I kept the tidal volume of 450 increased the rate up to 24. The patient is currently sedated with Diprivan at 5 mics. He is quite hypotensive. Triple lumen catheter was inserted and the patient is being resuscitated IV fluids. The patient is also on pressors and currently levo fed is running at 30 mics. For at least to be inserted yet. NG tube was inserted. The patient had approximately 400-500 mL of gastric output which was clear and liquidy. No abdominal distention. No seizure activity. Going back to the labs, the patient had a normal white cell count this morning with a hemoglobin of 10.4. His coagulation profile was within normal. Creatinine was at 1.3 and a baseline creatinine is not known. He has chronic metabolic alkalosis probably compensatory to CO2 retention with a bicarb level of 36. Troponins were positive and there was a minimal amount of leak with a troponin of 0.08 and 0.127 respectively 2. BNP level was 7580. Echocardiogram was done earlier this morning showed a moderate concentric left ventricular hypertrophy with moderate degree of pulmonary hypertension with right ventricular systolic pressure of 53. The patient had also an ejection fraction of 45-50%. Mild aortic sclerosis. No mitral regurgitation. No pericardial effusion. CT angios the chest was also done and this showed moderate cardiomegaly with evidence of pulmonary hypertension. Some scattered groundglass changes and septal lines in the mid and the lower lung hernandez bilaterally consistent with CHF. There was a small to moderate-sized right-sided pleural effusion and a rounded masslike area of consolidation in the right lung base along with some volume loss probably related to around atelectasis. There was respiratory motion. No evidence of any pulmonary embolism. CAT scan of the brain has not been done. On 01/17/2017 I'm seeing this patient in follow-up. Please refer to the vest occurred yesterday. The patient got intubated and placed on a mechanical ventilator. He was completely unresponsive and he was in CO2 narcosis. CAT scan of the brain was done and it did not show any acute abnormalities. The pCO2 was quite elevated. The patient was treated for an acute COPD exacerbation with a combination of bronchodilators and steroids and antibiotics. The most recent vent setting includes an assist-control mode at the rate of 24, tidal volume 450, FiO2 of 40% and a PEEP of 5. Blood gases from earlier this morning shows a component of respiratory acidosis with a pH of 7.49 and pCO2 of 41 and pO2 112. Chest x-ray showed limited infiltration of the right lung base. The peak air pressures around 27. Static pressures around 17. Based on this, I dropped the tidal volume down to the 400s and the respiratory rate down to 18. No significant orotracheal secretions. The patient is more active while being sedated with Diprivan. He is moving all 4 extremities. Would in the process of getting this patient is patient holiday. I do not think he is ready for weaning or extubation yet. I would like to give another 24 hours to optimize further his COPD with a combination of treatments. Note that the patient was also profoundly hypotensive. He required high-dose pressors and this was gradually weaned off and discontinued yesterday. Currently he is on normal saline at the rate of 100 mL an hour. He is also off pressors since yesterday. Is producing adequate amount of urine output. The renal function is stable with a creatinine of 1.1. He is afebrile. He is covered with broad-spectrum antibiotics. She'll feeds will be also initiated today. On 01/18/2017 the patient is being seen in follow-up. He remains intubated on a mechanical ventilator. Vent setting includes an assist-control mode at the rate of 15, FiO2 of 40% PEEP of 5 and tidal volume 400. Peak air pressures around 21. I:E ratio is 1-2.5. No significant bronchospasm wheezing on today' s evaluation. Chest x-ray shows small better pleural effusion and residual infiltration of the right lower lobe. ET tube is in a good location. No significant orotracheal secretions. No hypotension. Hemodynamically stable. Blood gases from today showed a pH of 7.34 with a pCO2 of 62 and pO2 of 76. The patient was given a sedation holiday yesterday and he was appropriate in terms of his arousal from sedation where he was over the 4 extremities without any limitation and he does follow some simple commands. He remains on Zosyn and Levaquin. No fever. No leukocytosis. No other major issues. She'll feeds will be stopped. Sedation will be held and would proceed with this point is breathing trial and hence patient for extubation today. Meanwhile, the patient be given a dose of Lasix 40 mg IV push to optimize the fluid balance. IV fluids are currently to KVO. Patient was reevaluated today on 02/15/2017, remains off mechanical ventilation, doing relatively well, in no distress, he is a bit agitated and refusing x-rays today, also refusing Venodyne boots, nurses are having some difficulty dealing with him because of refusal of everything they like to do. Hence I have increased his dose of trazodone and I have recommended that patient gets 3 evaluation from psychiatry again. I have also arranged for the patient to be transferred out of the ICU today to a regular medical floor. Labs were reviewed , CBC is relatively unremarkable, basic metabolic profile is relatively normal, bicarb is 34. Chest x-ray from yesterday showed bilateral pleural effusions and right lower lobe infiltrate. Objective - Vital Signs Vital signs: Vital Signs Temp 98.5 F 01/19/17 11:00 Pulse 110 H 01/19/17 12:00 Resp 28 H 01/19/17 12:00 BP 159/75 01/19/17 11:30 Pulse Ox 95 01/19/17 11:00 Intake & Output 01/18/17 01/19/17 01/19/17 18:59 06:59 18:59 Intake Total 616.417 820 520.0 Output Total 3270 1795 1240 Balance -2653.583 -975 -720.0 Weight 113.6 kg 113.6 kg Intake: IV 408.0 320 280.0 0.9 140 270 230 Levofloxacin 750Mg-D5w 200 Pmx 750 mg In Dextrose/ Water 1 150ml.bag @ 100 mls/hr IVPB Q24H [facility] Rx#: [id number] Piperacillin-Tazobactam 3 50.0 50 50.0 .375 gm In Dextrose/Water 1 50ml.bag @ 12.5 mls/hr IVPB Q8HR [facility] Rx#: [id number] Pressure bag 18 Intake, IV Titration 88.417 Amount Propofol 500 mg In Empty 88.417 Bag 1 bag @ Titrate IV . Q0M J[facility]OTNSA Rx#:[id number] Oral 500 240 Tube Feeding 120 Output: Urine 3270 1795 1240 Other: Voiding Method Indwelling Catheter Indwelling Catheter Indwelling Catheter # Voids 1 ABP, PAP, CO, CI - Last Documented Arterial Blood Pressure 166/59 - Exam Physical Exam: Revealed a 71-year-old in no distress. HEENT:[Neck is supple.] [No neck masses.] [No thyromegaly.] [No JVD.] Chest: [Diminished breath sounds at the bases, no crackles or rhonchi or wheezes. Cardiac Exam: [Normal S1 and S2, no S3 gallop, no murmur.] Abdomen: [Soft, nontender, no megaly, no rebound, no guarding, normal bowel sounds.] Extremities: [No clubbing, no edema, no cyanosis.] Neurological Exam: [No focal neurologic deficit., However the patient seems to get agitated easily, refusing x-rays, and diffusing Venodyne boots. He also refused his Carrasco catheter.] - Labs CBC & Chem 7: 01/19/17 09:36 01/19/17 09:36 Labs: Abnormal Lab Results - Last 24 Hours (Table) 01/18/17 01/18/17 01/19/17 Range/Units 17:29 20:09 00:20 WBC (3.8-10.6) k/uL Hgb (13.0-17.5) gm/dL Hct (39.0-53.0) % MCHC (31.0-37.0) g/dL RDW (11.5-15.5) % Neutrophils # (1.3-7.7) k/uL Lymphocytes # (1.0-4.8) k/uL Carbon Dioxide (22-30) mmol/L BUN (9-20) mg/dL Glucose (74-99) mg/dL POC Glucose (mg/dL) 139 H 134 H 163 H (75-99) mg/dL Phosphorus (2.5-4.5) mg/dL Magnesium (1.6-2.3) mg/dL 01/19/17 01/19/17 01/19/17 Range/Units 06:13 09:36 09:36 WBC 11.8 H (3.8-10.6) k/uL Hgb 11.3 L (13.0-17.5) gm/dL Hct 37.3 L (39.0-53.0) % MCHC 30.3 L (31.0-37.0) g/dL RDW 16.7 H (11.5-15.5) % Neutrophils # 11.0 H (1.3-7.7) k/uL Lymphocytes # 0.3 L (1.0-4.8) k/uL Carbon Dioxide 34 H (22-30) mmol/L BUN 31 H (9-20) mg/dL Glucose 156 H (74-99) mg/dL POC Glucose (mg/dL) 129 H (75-99) mg/dL Phosphorus 2.3 L (2.5-4.5) mg/dL Magnesium 2.5 H (1.6-2.3) mg/dL 01/19/17 Range/Units 11:37 WBC (3.8-10.6) k/uL Hgb (13.0-17.5) gm/dL Hct (39.0-53.0) % MCHC (31.0-37.0) g/dL RDW (11.5-15.5) % Neutrophils # (1.3-7.7) k/uL Lymphocytes # (1.0-4.8) k/uL Carbon Dioxide (22-30) mmol/L BUN (9-20) mg/dL Glucose (74-99) mg/dL POC Glucose (mg/dL) 217 H (75-99) mg/dL Phosphorus (2.5-4.5) mg/dL Magnesium (1.6-2.3) mg/dL Microbiology - Last 24 Hours (Table) 01/17/17 12:30 Gram Stain - Preliminary Sputum Sputum Culture - Preliminary Demi albicans 01/15/17 17:15 Blood Culture - Preliminary Blood No Growth after 72 hours 01/16/17 14:05 Blood Culture - Preliminary Blood No Growth after 48 hours 01/16/17 13:47 Blood Culture - Preliminary Blood No Growth after 48 hours Assessment and Plan Plan: 1 acute unresponsiveness, multifactorial. The altered mentation was most likely due to acute hypercapnic respiratory failure and CO2 narcosis. The CAT scan of the brain was negative. The patient is currently intubated on a mechanical ventilator. In retrospect, the patient's respiratory failure and essentially due to COPD exacerbation and possibility of right lower lobe pneumonia. There is also a right-sided pleural effusion seen on previous CAT scans and the most current chest x-ray. 2 acute respiratory failure. The patient has an acute hypercapnic respiratory failure probably related to COPD. Superimposed CHF/pneumonia cannot be completely excluded. 3 acute respiratory failure requiring intubation mechanical ventilation. 4 temporary hypotension and possible shock, differential diagnoses includes septic shock or cardiogenic shock, or possibly both. Patient responded to a short infusion of pressors given to him by Dr. Goldstein. 5 right-sided pleural effusion [id number] in size 6 right basilar ground atelectasis 7 acute kidney injury, improving and the creatinine is down to 1.1 and the patient is producing adequate amount of urine output 8 obesity. 9 chronic psychotic disorder with multiple psychotropic medication including a combination of trazodone, Abilify, Cogentin and Lamictal. Rule out underlying depression. Rule out underlying PTSD. Rule out underlying bipolar disorder 10 COPD 11 chronic smoker 12 hypertension 13 hyperlipidemia Recommendation: Continue present treatment plan, arrange for psychiatry to see the patient again, consider transferring the patient out of the ICU, and we will continue to follow. Doses remains guarded. Time with Patient: Less than 30
[2017-01-19] MEDS: SODIUM CHLORIDE 0.9% 1,000 ML IV SCH (16:14)
[2017-01-19] MEDS: methylPREDNISolone SOD SUCCI 40 MG/ML 1 ML VIAL IV SCH (16:20)
[2017-01-19 17:24] LABS: Glucose,Whole Blood 140 mg/dL (75-99)
[2017-01-19 20:16] LABS: Glucose,Whole Blood 157 mg/dL (75-99)
[2017-01-19] MEDS ORDERED: OLANZapine 5 MG TAB PO SCH (21:00)
[2017-01-19] MEDS: BENZTROPINE MESYLATE 1 MG TAB PO SCH (22:16)
[2017-01-19] MEDS: traZODone HCL 100 MG TAB PO SCH (22:18)
[2017-01-19] MEDS: ATORVASTATIN 40 MG TAB PO SCH (22:19)
[2017-01-20] MEDS: PIPERACILLIN-TAZOBACTAM 3.375 GM in DEXTROSE/WATER 1 50ML.BAG IVPB SCH ×4 (00:23→23:32)
[2017-01-20] MEDS: methylPREDNISolone SOD SUCCI 40 MG/ML 1 ML VIAL IV SCH ×4 (00:23→23:32)
[2017-01-20] MEDS: INSULIN LISPRO (humaLOG) 300 UNIT/3 ML VIAL SQ SCH ×5 (00:24→23:32)
[2017-01-20 05:50] LABS: Glucose,Whole Blood 144 mg/dL (75-99)
[2017-01-20 06:59] LABS: Anisocytosis Slight; Basophils % (A) 0 %; CH 24.5; CHCM 29.7; Eosinophils % (A) 0 %; HCT 35.9 % (39.0-53.0); HDW 3.26; HGB 10.8 gm/dL (13.0-17.5); Hypochromasia Marked; Luc # (Auto) 0.12; Luc % (Auto) 1; Lymphocytes # (A) 0.5 k/uL (1.0-4.8); Lymphocytes % (A) 6 %; MCHC 30.2 g/dL (31.0-37.0); MCV 82.9 fL (80.0-100.0); Mean Platelet Volume 8.5; Monocytes # (A) 0.6 k/uL (0-1.0); Monocytes % (A) 7 %; Neutrophils # (A) 7.8 k/uL (1.3-7.7); Neutrophils % (A) 86 %; RBC 4.33 m/uL (4.30-5.90); RDW 16.4 % (11.5-15.5); WBC 9.1 k/uL (3.8-10.6); WBC (Perox) 9.34
[2017-01-20 07:00] LABS: Glucose,Whole Blood 137 mg/dL (75-99)
[2017-01-20 07:09] LABS: Anion Gap 4 mmol/L; Blood Urea Nitrogen 30 mg/dL (9-20); Calcium 8.6 mg/dL (8.4-10.2); Carbon Dioxide 34 mmol/L (22-30); Chloride 103 mmol/L (98-107); Glucose 127 mg/dL (74-99); Magnesium 2.3 mg/dL (1.6-2.3); Non-African American GFR(MDRD) >60 (>60 ml/min/1.73 sqM); Phosphorous 2.8 mg/dL (2.5-4.5); Sodium 141 mmol/L (137-145)
[2017-01-20] MEDS: FERROUS SULFATE 325 MG TAB PO SCH ×3 (08:13→21:39)
[2017-01-20] MEDS: PANTOPRAZOLE 40 MG TABLET PO SCH (08:13)
[2017-01-20] MEDS: ASPIRIN 81 MG CHEW PO SCH (08:13)
[2017-01-20] MEDS: NAPROXEN 250 MG TAB PO SCH ×2 (08:14→21:40)
[2017-01-20] MEDS: ENOXAPARIN 40 MG/0.4 ML SYRINGE SQ SCH (08:14)
[2017-01-20] MEDS: lamoTRIgine 100 MG TAB PO SCH ×2 (08:14→21:41)
--- NOTE | 2017-01-20 09:43 | P.PN ---
Progress Note - Text Attempted to see patient this morning but he had soiled himself and staff needed to clean him up. RN reports he slept better last night. Have attempted to reach Public Guardian, to get his past psychiatric history, however one MD wrote he has hx of schizophrenia. Need to get past history. A: Patient appears to have fluctuating awareness, with behavior indicating delirium. Possible history of psychosis but has not displayed sypmtoms since admission. Delirium R/O Psychosis R/O [facility] P:Continue zyprexa 5mg HS. Ask SW to contact guardian to get past psychiatric hx and treatment hx, ie medications. Will attempt to see patient later today.
--- NOTE | 2017-01-20 11:27 | P.PN ---
Subjective Principal diagnosis: Acute hypercapnic respiratory failure requiring intubation mechanical ventilation. A 71-year-old male patient, morbidly obese with advanced COPD and a chronic smoking history along with a long-term psychiatric history probably including a combination of depression and PTSD who has been living in a intermediate. The patient came in yesterday to the hospital because of altered mentation and generalized body weakness. Not much of information is available. Emergency was not able to obtain information from this patient as the patient was not able to volunteer any information. The patient was sent in because he was too weak to stand and his weakness was both in upper and lower extremities without having any focal neurological deficit. His brother was in and he told us that he is usually awake and alert and communicative. He lives in a intermediate due to his underlying psychiatric conditions. The patient was initially admitted to the medical floor and he was given a diagnosis of an underlying pneumonia. Earlier this morning he was alert and responsive and he had several conversations with the nurses and around 1 PM this afternoon the patient became acutely unresponsive and an emergency consultation was requested by pulmonary and critical care. I came at the bedside and the patient was completely unresponsive. He had very shallow breathing. His blood pressure was low with a systolic in the mid 80s. He was not withdrawing to any painful stimuli. Pupils were about 3-4 mm in size and sluggishly reactive. At that point a immediate to move the patient intensive care unit. I had a brief discussion with the patient's brother. I and nondistended the patient has a public guardian. The patient does not have any advanced directives. Based on that, I immediately intubated the patient and put him on a mechanical ventilator. I put him on assist control mode at the rate of 16 with tidal volume 450 and FiO2 of 50% and a PEEP of 5. Blood gases that was done post intubation showed a pH of 7.06 with a pCO2 of 133 and pO2 of 96 and this was on FiO2 of 50%. Based on this, I kept the tidal volume of 450 increased the rate up to 24. The patient is currently sedated with Diprivan at 5 mics. He is quite hypotensive. Triple lumen catheter was inserted and the patient is being resuscitated IV fluids. The patient is also on pressors and currently levo fed is running at 30 mics. For at least to be inserted yet. NG tube was inserted. The patient had approximately 400-500 mL of gastric output which was clear and liquidy. No abdominal distention. No seizure activity. Going back to the labs, the patient had a normal white cell count this morning with a hemoglobin of 10.4. His coagulation profile was within normal. Creatinine was at 1.3 and a baseline creatinine is not known. He has chronic metabolic alkalosis probably compensatory to CO2 retention with a bicarb level of 36. Troponins were positive and there was a minimal amount of leak with a troponin of 0.08 and 0.127 respectively 2. BNP level was 7580. Echocardiogram was done earlier this morning showed a moderate concentric left ventricular hypertrophy with moderate degree of pulmonary hypertension with right ventricular systolic pressure of 53. The patient had also an ejection fraction of 45-50%. Mild aortic sclerosis. No mitral regurgitation. No pericardial effusion. CT angios the chest was also done and this showed moderate cardiomegaly with evidence of pulmonary hypertension. Some scattered groundglass changes and septal lines in the mid and the lower lung hernandez bilaterally consistent with CHF. There was a small to moderate-sized right-sided pleural effusion and a rounded masslike area of consolidation in the right lung base along with some volume loss probably related to around atelectasis. There was respiratory motion. No evidence of any pulmonary embolism. CAT scan of the brain has not been done. On 01/17/2017 I'm seeing this patient in follow-up. Please refer to the vest occurred yesterday. The patient got intubated and placed on a mechanical ventilator. He was completely unresponsive and he was in CO2 narcosis. CAT scan of the brain was done and it did not show any acute abnormalities. The pCO2 was quite elevated. The patient was treated for an acute COPD exacerbation with a combination of bronchodilators and steroids and antibiotics. The most recent vent setting includes an assist-control mode at the rate of 24, tidal volume 450, FiO2 of 40% and a PEEP of 5. Blood gases from earlier this morning shows a component of respiratory acidosis with a pH of 7.49 and pCO2 of 41 and pO2 112. Chest x-ray showed limited infiltration of the right lung base. The peak air pressures around 27. Static pressures around 17. Based on this, I dropped the tidal volume down to the 400s and the respiratory rate down to 18. No significant orotracheal secretions. The patient is more active while being sedated with Diprivan. He is moving all 4 extremities. Would in the process of getting this patient is patient holiday. I do not think he is ready for weaning or extubation yet. I would like to give another 24 hours to optimize further his COPD with a combination of treatments. Note that the patient was also profoundly hypotensive. He required high-dose pressors and this was gradually weaned off and discontinued yesterday. Currently he is on normal saline at the rate of 100 mL an hour. He is also off pressors since yesterday. Is producing adequate amount of urine output. The renal function is stable with a creatinine of 1.1. He is afebrile. He is covered with broad-spectrum antibiotics. She'll feeds will be also initiated today. On 01/18/2017 the patient is being seen in follow-up. He remains intubated on a mechanical ventilator. Vent setting includes an assist-control mode at the rate of 15, FiO2 of 40% PEEP of 5 and tidal volume 400. Peak air pressures around 21. I:E ratio is 1-2.5. No significant bronchospasm wheezing on today' s evaluation. Chest x-ray shows small better pleural effusion and residual infiltration of the right lower lobe. ET tube is in a good location. No significant orotracheal secretions. No hypotension. Hemodynamically stable. Blood gases from today showed a pH of 7.34 with a pCO2 of 62 and pO2 of 76. The patient was given a sedation holiday yesterday and he was appropriate in terms of his arousal from sedation where he was over the 4 extremities without any limitation and he does follow some simple commands. He remains on Zosyn and Levaquin. No fever. No leukocytosis. No other major issues. She'll feeds will be stopped. Sedation will be held and would proceed with this point is breathing trial and hence patient for extubation today. Meanwhile, the patient be given a dose of Lasix 40 mg IV push to optimize the fluid balance. IV fluids are currently to KVO. Patient was reevaluated today on 01/19/2017, remains off mechanical ventilation, doing relatively well, in no distress, he is a bit agitated and refusing x-rays today, also refusing Venodyne boots, nurses are having some difficulty dealing with him because of refusal of everything they like to do. Hence I have increased his dose of trazodone and I have recommended that patient gets 3 evaluation from psychiatry again. I have also arranged for the patient to be transferred out of the ICU today to a regular medical floor. Labs were reviewed , CBC is relatively unremarkable, basic metabolic profile is relatively normal, bicarb is 34. Chest x-ray from yesterday showed bilateral pleural effusions and right lower lobe infiltrate. The patient is seen again today 01/20/2017 in follow-up on the regular medical floor. He is awake and alert in no acute distress. He is currently more cooperative. He denies any worsening shortness of breath. He has a loose nonproductive cough. No chills or night sweats. He is maintaining good O2 saturations in the mid to upper 90s on 2 L/m per nasal cannula. He is afebrile. No leukocytosis. He has been seen by psychiatry. He remains on Zyprexa for the delirium. Objective - Vital Signs Vital signs: Vital Signs Temp 98.3 F 01/20/17 07:00 Pulse 90 01/20/17 07:00 Resp 18 01/20/17 07:00 BP 192/81 01/20/17 07:00 Pulse Ox 96 01/20/17 07:00 Intake & Output 01/19/17 01/20/17 01/20/17 18:59 06:59 18:59 Intake Total 1000.0 830 Output Total 1240 Balance -240.0 830 Weight 113.6 kg 119 kg Intake: IV 280.0 0.9 230 Piperacillin-Tazobactam 3 50.0 .375 gm In Dextrose/Water 1 50ml.bag @ 12.5 mls/hr IVPB Q8HR [facility] Rx#: [id number] Oral 720 830 Output: Urine 1240 Other: Voiding Method Urinal Urinal Diaper Incontinent # Voids 1 3 1 # Bowel Movements 1 ABP, PAP, CO, CI - Last Documented Arterial Blood Pressure 166/59 - Exam GENERAL EXAM: Alert, comfortable in no apparent distress. HEAD: Normocephalic. EYES: Normal reaction of pupils, equal size. NOSE: Clear with pink turbinates. THROAT: No erythema or exudates. NECK: No masses, no JVD. CHEST: No chest wall deformity. LUNGS: Equal air entry with bilateral end expiratory wheeze, crackles in the bases. CVS: S1 and S2 normal with no audible mumurs, regular rhythm. ABDOMEN: No hepatosplenomegaly, normal bowel sounds, no guarding or rigidity. Extremities: There is trace peripheral edema. No clubbing, no cyanosis. Peripheral pulses are intact. - Labs CBC & Chem 7: 01/20/17 06:33 01/20/17 06:33 Labs: Abnormal Lab Results - Last 24 Hours (Table) 01/19/17 01/19/17 01/19/17 Range/Units 11:37 17:22 20:14 Hgb (13.0-17.5) gm/dL Hct (39.0-53.0) % MCHC (31.0-37.0) g/dL RDW (11.5-15.5) % Neutrophils # (1.3-7.7) k/uL Lymphocytes # (1.0-4.8) k/uL Carbon Dioxide (22-30) mmol/L BUN (9-20) mg/dL Glucose (74-99) mg/dL POC Glucose (mg/dL) 217 H 140 H 157 H (75-99) mg/dL 01/20/17 01/20/17 01/20/17 Range/Units 05:47 06:33 06:33 Hgb 10.8 L (13.0-17.5) gm/dL Hct 35.9 L (39.0-53.0) % MCHC 30.2 L (31.0-37.0) g/dL RDW 16.4 H (11.5-15.5) % Neutrophils # 7.8 H (1.3-7.7) k/uL Lymphocytes # 0.5 L (1.0-4.8) k/uL Carbon Dioxide 34 H (22-30) mmol/L BUN 30 H (9-20) mg/dL Glucose 127 H (74-99) mg/dL POC Glucose (mg/dL) 144 H (75-99) mg/dL 01/20/17 Range/Units 06:59 Hgb (13.0-17.5) gm/dL Hct (39.0-53.0) % MCHC (31.0-37.0) g/dL RDW (11.5-15.5) % Neutrophils # (1.3-7.7) k/uL Lymphocytes # (1.0-4.8) k/uL Carbon Dioxide (22-30) mmol/L BUN (9-20) mg/dL Glucose (74-99) mg/dL POC Glucose (mg/dL) 137 H (75-99) mg/dL Microbiology - Last 24 Hours (Table) 01/17/17 12:30 Gram Stain - Final Sputum Sputum Culture - Final Demi albicans Demi glabrata 01/15/17 17:15 Blood Culture - Preliminary Blood No Growth after 96 hours 01/16/17 14:05 Blood Culture - Preliminary Blood No Growth after 72 hours 01/16/17 13:47 Blood Culture - Preliminary Blood No Growth after 72 hours Assessment and Plan Plan: Impression: 1 acute unresponsiveness, multifactorial. The altered mentation was most likely due to acute hypercapnic respiratory failure and CO2 narcosis. The CAT scan of the brain was negative. In retrospect, the patient's respiratory failure and essentially due to COPD exacerbation and possibility of right lower lobe pneumonia. There is also a right-sided pleural effusion seen on previous CAT scans and the most current chest x-ray. 2 acute hypercapnic respiratory failure probably related to COPD. Superimposed CHF/pneumonia cannot be completely excluded. 3 acute respiratory failure requiring intubation mechanical ventilation. Recovered. Currently maintaining O2 saturations in the 90s on 2 L/m per nasal cannula. 4 temporary hypotension and possible shock, differential diagnoses includes septic shock or cardiogenic shock, or possibly both. 5 right-sided pleural effusion [id number] in size 6 right basilar ground atelectasis 7 acute kidney injury, improving and the creatinine is down to 1.1 and the patient is producing adequate amount of urine output 8 obesity. 9 chronic psychotic disorder with multiple psychotropic medication including a combination of trazodone, Abilify, Cogentin and Lamictal. Rule out underlying depression. Rule out underlying PTSD. Rule out underlying bipolar disorder 10 COPD 11 chronic smoker 12 hypertension 13 hyperlipidemia Plan: The patient was seen and evaluated by Dr. Gallardo. He is currently stable from the pulmonary and critical care standpoint. We'll continue with his current medications. He remains on antibiotics in the form of Zosyn. Continue bronchodilators and IV Solu-Medrol. Psychiatry is on the case as well. We will continue to follow.
[2017-01-20 11:28] LABS: Glucose,Whole Blood 111 mg/dL (75-99)
[2017-01-20] MEDS: FLUCONAZOLE 100 MG TAB PO SCH (12:46)
--- NOTE | 2017-01-20 14:05 | P.CN ---
Psychiatric Consult - . Consult date: 01/20/17 Consult:: 01/20/17 13:55 DATE OF SERVICE: 01/20/2017 IDENTIFYING DATA: This patient is a 71-year-old male admitted to medical floors due to weakness. . HISTORY OF PRESENT ILLNESS: The patient presents with improved mood today. Did to see patient earlier this morning but nursing staff stated that he had completely covered himself in feces urinated on the floor with feces all around the room. Nursing staff reports that he made no attempt to get help, and felt that it was deliberate. Patient lying in bed lunch tray at his side had not eaten. Pleasant recognized technical proposal writer, saying "you're the psychiatrist". Reports that he slept well last night, has no complaints. Denies that he is being resistant or refusing care, but states that his brother keeps telling him he has to mind his manners. Patient states that he will do with the nursing staff tells him to do. Patient cannot give any history of his psychiatric illness, continues to state that he has PTSD, state that he is on Zyprexa even though the record shows that he was last on Abilify. No evidence of depression, anxiety, or psychosis today. Assessment: Patient with a chronic psychiatric illness, unknown but brother and patient state PTSD, but several physicians seeing patient have reported schizophrenia. Unable to verify any psychiatric disorder by a treating physician. He is taking antipsychotic medication, but it can also be used for depression and/or PTSD. Concern if patient is sundowning, if he is still delirious, he was oriented correctly today. Patient alert and oriented 3, good eye contact, fair groomed in hospital attire. Speech normal volume, rate and production. Coherent, logical and goal directed thought process. No KAYDEN, no FOI. No TB/TW/ TI Denied auditory and visual hallucinations. Denied paranoid ideation, delusions or IOR. Mood euthymic, affect full range, normal intensity, congruent with mood. Denies suicidal ideation, denies homicidal ideation. Insight none; Judgment impaired Delirium, multiple medical causes R/O MCI PTSD R/O H/O Psychosis PLAN: Increase olanzapine to 7.5 mg daily at bedtime. Requested nursing staff to check his mental status in early evening around 5 or 6:00 and again if awake around 10 PM.
[2017-01-20] MEDS: SODIUM CHLORIDE 0.9% 1,000 ML IV SCH (14:45)
[2017-01-20] MEDS: LEVOFLOXACIN 750 MG TAB PO SCH (14:47)
[2017-01-20 17:07] LABS: Glucose,Whole Blood 104 mg/dL (75-99)
[2017-01-20 20:32] LABS: Glucose,Whole Blood 143 mg/dL (75-99)
[2017-01-20] MEDS: traZODone HCL 100 MG TAB PO SCH (21:39)
[2017-01-20] MEDS: OLANZapine 2.5 MG TAB PO SCH (21:40)
[2017-01-20] MEDS: BENZTROPINE MESYLATE 1 MG TAB PO SCH (21:41)
[2017-01-20] MEDS: ATORVASTATIN 40 MG TAB PO SCH (21:41)
[2017-01-20 23:52] LABS: Glucose,Whole Blood 148 mg/dL (75-99)
[2017-01-21 05:50] LABS: Glucose,Whole Blood 121 mg/dL (75-99)
[2017-01-21 06:22] LABS: Anisocytosis Slight; Basophils % (A) 0 %; CH 24.3; CHCM 29.3; Eosinophils % (A) 0 %; HCT 34.1 % (39.0-53.0); HDW 3.24; HGB 10.4 gm/dL (13.0-17.5); Hypochromasia Marked; Luc # (Auto) 0.15; Luc % (Auto) 2; Lymphocytes # (A) 0.9 k/uL (1.0-4.8); Lymphocytes % (A) 9 %; MCH 25.5 pg (25.0-35.0); MCHC 30.6 g/dL (31.0-37.0); MCV 83.3 fL (80.0-100.0); Mean Platelet Volume 8.3; Monocytes # (A) 0.6 k/uL (0-1.0); Monocytes % (A) 6 %; Neutrophils # (A) 8.2 k/uL (1.3-7.7); Neutrophils % (A) 83 %; RBC 4.09 m/uL (4.30-5.90); RDW 16.1 % (11.5-15.5); WBC 9.8 k/uL (3.8-10.6); WBC (Perox) 10.56
[2017-01-21] MEDS: INSULIN LISPRO (humaLOG) 300 UNIT/3 ML VIAL SQ SCH ×4 (06:23→23:49)
[2017-01-21 06:33] LABS: Anion Gap 1 mmol/L; Blood Urea Nitrogen 29 mg/dL (9-20); Calcium 8.3 mg/dL (8.4-10.2); Carbon Dioxide 38 mmol/L (22-30); Chloride 102 mmol/L (98-107); Glucose 110 mg/dL (74-99); Non-African American GFR(MDRD) >60 (>60 ml/min/1.73 sqM); Potassium 4.9 mmol/L (3.5-5.1); Sodium 141 mmol/L (137-145)
[2017-01-21 07:21] LABS: Glucose,Whole Blood 113 mg/dL (75-99)
[2017-01-21] MEDS: PIPERACILLIN-TAZOBACTAM 3.375 GM in DEXTROSE/WATER 1 50ML.BAG IVPB SCH ×3 (08:11→23:49)
[2017-01-21] MEDS: ASPIRIN 81 MG CHEW PO SCH (08:12)
[2017-01-21] MEDS: methylPREDNISolone SOD SUCCI 40 MG/ML 1 ML VIAL IV SCH ×3 (08:12→23:47)
[2017-01-21] MEDS: FLUCONAZOLE 100 MG TAB PO SCH (08:12)
[2017-01-21] MEDS: NAPROXEN 250 MG TAB PO SCH ×2 (08:13→22:00)
[2017-01-21] MEDS: ENOXAPARIN 40 MG/0.4 ML SYRINGE SQ SCH (08:13)
[2017-01-21] MEDS: FERROUS SULFATE 325 MG TAB PO SCH ×3 (08:13→22:02)
[2017-01-21] MEDS: lamoTRIgine 100 MG TAB PO SCH ×2 (08:13→22:02)
[2017-01-21] MEDS: PANTOPRAZOLE 40 MG TABLET PO SCH (08:14)
[2017-01-21 11:36] LABS: Glucose,Whole Blood 132 mg/dL (75-99)
[2017-01-21] MEDS: LEVOFLOXACIN 750 MG TAB PO SCH (12:02)
--- NOTE | 2017-01-21 13:20 | P.CN ---
Psychiatric Consult - . Consult date: 01/21/17 Consult:: 01/21/17 13:14 INTERVERAL HISTORY: Reviewed chart, discussed with RN and met with patient. Patient up in the chair having much. He smiled and greeted me. States he's doing well, states he is taking all the medicines that they ask him to, and doing everything that he is told to. Patient slept well last night. Patient is much easier to understand today than he has been since admission. Mood and affect are within normal limits. No psychosis. He was alert and oriented 3. There was no evidence noted by nursing that there was any sundowning last night he was alert and oriented 3. MENTAL STATUS EXAM: Patient alert and oriented 3, good eye contact, fair groomed in hospital attire. Speech normal volume, rate and production. Coherent, logical and goal directed thought process. No KAYDEN, no FOI. No TB/TW/ TI Denied auditory and visual hallucinations. Denied paranoid ideation, delusions or IOR. Mood euthymic, affect full range, normal intensity, congruent with mood. Denies suicidal ideation, denies homicidal ideation. Insight none; Judgment impaired Assessment: Patient with a chronic psychiatric illness, unknown but brother and patient state PTSD, but several physicians seeing patient have reported schizophrenia. Unable to verify any psychiatric disorder by a treating physician. He is taking antipsychotic medication, but it can also be used for depression and/or PTSD. He was oriented correctly today and through the night. Delirium seems to be resolving No evidence of depression, anxiety, or psychosis today. Delirium, multiple medical causes, appears to be resolving R/O MCI PTSD R/O H/O Psychosis PLAN: Continue olanzapine to 7.5 mg daily at bedtime. Requested nursing staff to check his mental status in early evening around 5 or 6:00 and again if awake around 10 PM. Spoke to housing case manager and RN, [facility]. Agree with this. No indication for inpatient psychiatric care. Continue olanzapine 7.5 mg daily at bedtime.
--- NOTE | 2017-01-21 13:26 | P.PN ---
Subjective Principal diagnosis: Acute hypercapnic respiratory failure requiring intubation mechanical ventilation. A 71-year-old male patient, morbidly obese with advanced COPD and a chronic smoking history along with a long-term psychiatric history probably including a combination of depression and PTSD who has been living in a detention. The patient came in yesterday to the hospital because of altered mentation and generalized body weakness. Not much of information is available. Emergency was not able to obtain information from this patient as the patient was not able to volunteer any information. The patient was sent in because he was too weak to stand and his weakness was both in upper and lower extremities without having any focal neurological deficit. His brother was in and he told us that he is usually awake and alert and communicative. He lives in a detention due to his underlying psychiatric conditions. The patient was initially admitted to the medical floor and he was given a diagnosis of an underlying pneumonia. Earlier this morning he was alert and responsive and he had several conversations with the nurses and around 1 PM this afternoon the patient became acutely unresponsive and an emergency consultation was requested by pulmonary and critical care. I came at the bedside and the patient was completely unresponsive. He had very shallow breathing. His blood pressure was low with a systolic in the mid 80s. He was not withdrawing to any painful stimuli. Pupils were about 3-4 mm in size and sluggishly reactive. At that point a immediate to move the patient intensive care unit. I had a brief discussion with the patient's brother. I and nondistended the patient has a public guardian. The patient does not have any advanced directives. Based on that, I immediately intubated the patient and put him on a mechanical ventilator. I put him on assist control mode at the rate of 16 with tidal volume 450 and FiO2 of 50% and a PEEP of 5. Blood gases that was done post intubation showed a pH of 7.06 with a pCO2 of 133 and pO2 of 96 and this was on FiO2 of 50%. Based on this, I kept the tidal volume of 450 increased the rate up to 24. The patient is currently sedated with Diprivan at 5 mics. He is quite hypotensive. Triple lumen catheter was inserted and the patient is being resuscitated IV fluids. The patient is also on pressors and currently levo fed is running at 30 mics. For at least to be inserted yet. NG tube was inserted. The patient had approximately 400-500 mL of gastric output which was clear and liquidy. No abdominal distention. No seizure activity. Going back to the labs, the patient had a normal white cell count this morning with a hemoglobin of 10.4. His coagulation profile was within normal. Creatinine was at 1.3 and a baseline creatinine is not known. He has chronic metabolic alkalosis probably compensatory to CO2 retention with a bicarb level of 36. Troponins were positive and there was a minimal amount of leak with a troponin of 0.08 and 0.127 respectively 2. BNP level was 7580. Echocardiogram was done earlier this morning showed a moderate concentric left ventricular hypertrophy with moderate degree of pulmonary hypertension with right ventricular systolic pressure of 53. The patient had also an ejection fraction of 45-50%. Mild aortic sclerosis. No mitral regurgitation. No pericardial effusion. CT angios the chest was also done and this showed moderate cardiomegaly with evidence of pulmonary hypertension. Some scattered groundglass changes and septal lines in the mid and the lower lung hernandez bilaterally consistent with CHF. There was a small to moderate-sized right-sided pleural effusion and a rounded masslike area of consolidation in the right lung base along with some volume loss probably related to around atelectasis. There was respiratory motion. No evidence of any pulmonary embolism. CAT scan of the brain has not been done. On 01/17/2017 I'm seeing this patient in follow-up. Please refer to the vest occurred yesterday. The patient got intubated and placed on a mechanical ventilator. He was completely unresponsive and he was in CO2 narcosis. CAT scan of the brain was done and it did not show any acute abnormalities. The pCO2 was quite elevated. The patient was treated for an acute COPD exacerbation with a combination of bronchodilators and steroids and antibiotics. The most recent vent setting includes an assist-control mode at the rate of 24, tidal volume 450, FiO2 of 40% and a PEEP of 5. Blood gases from earlier this morning shows a component of respiratory acidosis with a pH of 7.49 and pCO2 of 41 and pO2 112. Chest x-ray showed limited infiltration of the right lung base. The peak air pressures around 27. Static pressures around 17. Based on this, I dropped the tidal volume down to the 400s and the respiratory rate down to 18. No significant orotracheal secretions. The patient is more active while being sedated with Diprivan. He is moving all 4 extremities. Would in the process of getting this patient is patient holiday. I do not think he is ready for weaning or extubation yet. I would like to give another 24 hours to optimize further his COPD with a combination of treatments. Note that the patient was also profoundly hypotensive. He required high-dose pressors and this was gradually weaned off and discontinued yesterday. Currently he is on normal saline at the rate of 100 mL an hour. He is also off pressors since yesterday. Is producing adequate amount of urine output. The renal function is stable with a creatinine of 1.1. He is afebrile. He is covered with broad-spectrum antibiotics. She'll feeds will be also initiated today. On 01/18/2017 the patient is being seen in follow-up. He remains intubated on a mechanical ventilator. Vent setting includes an assist-control mode at the rate of 15, FiO2 of 40% PEEP of 5 and tidal volume 400. Peak air pressures around 21. I:E ratio is 1-2.5. No significant bronchospasm wheezing on today' s evaluation. Chest x-ray shows small better pleural effusion and residual infiltration of the right lower lobe. ET tube is in a good location. No significant orotracheal secretions. No hypotension. Hemodynamically stable. Blood gases from today showed a pH of 7.34 with a pCO2 of 62 and pO2 of 76. The patient was given a sedation holiday yesterday and he was appropriate in terms of his arousal from sedation where he was over the 4 extremities without any limitation and he does follow some simple commands. He remains on Zosyn and Levaquin. No fever. No leukocytosis. No other major issues. She'll feeds will be stopped. Sedation will be held and would proceed with this point is breathing trial and hence patient for extubation today. Meanwhile, the patient be given a dose of Lasix 40 mg IV push to optimize the fluid balance. IV fluids are currently to KVO. Patient was reevaluated today on 01/19/2017, remains off mechanical ventilation, doing relatively well, in no distress, he is a bit agitated and refusing x-rays today, also refusing Venodyne boots, nurses are having some difficulty dealing with him because of refusal of everything they like to do. Hence I have increased his dose of trazodone and I have recommended that patient gets 3 evaluation from psychiatry again. I have also arranged for the patient to be transferred out of the ICU today to a regular medical floor. Labs were reviewed , CBC is relatively unremarkable, basic metabolic profile is relatively normal, bicarb is 34. Chest x-ray from yesterday showed bilateral pleural effusions and right lower lobe infiltrate. The patient is seen again today 01/20/2017 in follow-up on the regular medical floor. He is awake and alert in no acute distress. He is currently more cooperative. He denies any worsening shortness of breath. He has a loose nonproductive cough. No chills or night sweats. He is maintaining good O2 saturations in the mid to upper 90s on 2 L/m per nasal cannula. He is afebrile. No leukocytosis. He has been seen by psychiatry. He remains on Zyprexa for the delirium. The patient is seen again today 01/21/2017 in follow-up on the regular medical floor. He is currently awake and alert in no acute distress. Slightly more cooperative today as compared to yesterday. He denies any worsening shortness of breath, cough or congestion. No chills or night sweats. He was positive for Demi only. He is on Diflucan. He is still on Levaquin and IV Solu- Medrol. Is currently afebrile. Maintain O2 saturations in the low 90s on 2 L/ m per nasal cannula. Objective - Vital Signs Vital signs: Vital Signs Temp 97.4 F L 01/21/17 07:00 Pulse 90 01/21/17 08:00 Resp 18 01/21/17 08:00 BP 151/73 01/21/17 07:00 Pulse Ox 91 L 01/21/17 07:00 Intake & Output 01/20/17 01/21/17 01/21/17 18:59 06:59 18:59 Intake Total 1550 200 Output Total 1500 Balance 50 200 Weight 119 kg 121.5 kg Intake: IV 50 Piperacillin-Tazobactam 3 50 .375 gm In Dextrose/Water 1 50ml.bag @ 12.5 mls/hr IVPB Q8HR JYOTSNA Rx#: [id number] Oral 1500 200 Output: Urine 1500 Other: Voiding Method Diaper Urinal Urinal Incontinent Diaper Diaper Incontinent Incontinent # Voids 1 2 1 # Bowel Movements 2 ABP, PAP, CO, CI - Last Documented Arterial Blood Pressure 166/59 - Exam GENERAL EXAM: Alert, comfortable in no apparent distress. HEAD: Normocephalic. EYES: Normal reaction of pupils, equal size. NOSE: Clear with pink turbinates. THROAT: No erythema or exudates. NECK: No masses, no JVD. CHEST: No chest wall deformity. LUNGS: Equal air entry with bilateral end expiratory wheeze, crackles in the bases. CVS: S1 and S2 normal with no audible mumurs, regular rhythm. ABDOMEN: No hepatosplenomegaly, normal bowel sounds, no guarding or rigidity. Extremities: There is trace peripheral edema. No clubbing, no cyanosis. Peripheral pulses are intact. - Labs CBC & Chem 7: 01/21/17 06:08 01/21/17 06:08 Labs: Abnormal Lab Results - Last 24 Hours (Table) 01/20/17 01/20/17 01/20/17 Range/Units 17:05 20:28 23:31 RBC (4.30-5.90) m/uL Hgb (13.0-17.5) gm/dL Hct (39.0-53.0) % MCHC (31.0-37.0) g/dL RDW (11.5-15.5) % Neutrophils # (1.3-7.7) k/uL Lymphocytes # (1.0-4.8) k/uL Carbon Dioxide (22-30) mmol/L BUN (9-20) mg/dL Glucose (74-99) mg/dL POC Glucose (mg/dL) 104 H 143 H 148 H (75-99) mg/dL Calcium (8.4-10.2) mg/dL 01/21/17 01/21/17 01/21/17 Range/Units 05:44 06:08 06:08 RBC 4.09 L (4.30-5.90) m/uL Hgb 10.4 L (13.0-17.5) gm/dL Hct 34.1 L (39.0-53.0) % MCHC 30.6 L (31.0-37.0) g/dL RDW 16.1 H (11.5-15.5) % Neutrophils # 8.2 H (1.3-7.7) k/uL Lymphocytes # 0.9 L (1.0-4.8) k/uL Carbon Dioxide 38 H (22-30) mmol/L BUN 29 H (9-20) mg/dL Glucose 110 H (74-99) mg/dL POC Glucose (mg/dL) 121 H (75-99) mg/dL Calcium 8.3 L (8.4-10.2) mg/dL 01/21/17 01/21/17 Range/Units 07:20 11:25 RBC (4.30-5.90) m/uL Hgb (13.0-17.5) gm/dL Hct (39.0-53.0) % MCHC (31.0-37.0) g/dL RDW (11.5-15.5) % Neutrophils # (1.3-7.7) k/uL Lymphocytes # (1.0-4.8) k/uL Carbon Dioxide (22-30) mmol/L BUN (9-20) mg/dL Glucose (74-99) mg/dL POC Glucose (mg/dL) 113 H 132 H (75-99) mg/dL Calcium (8.4-10.2) mg/dL Microbiology - Last 24 Hours (Table) 01/15/17 17:15 Blood Culture - Preliminary Blood No Growth after 120 hours 01/16/17 14:05 Blood Culture - Preliminary Blood No Growth after 96 hours 01/16/17 13:47 Blood Culture - Preliminary Blood No Growth after 96 hours 01/17/17 12:30 Gram Stain - Final Sputum Sputum Culture - Final Demi albicans Demi glabrata Assessment and Plan Plan: Impression: 1 acute unresponsiveness, multifactorial. The altered mentation was most likely due to acute hypercapnic respiratory failure and CO2 narcosis. The CAT scan of the brain was negative. In retrospect, the patient's respiratory failure and essentially due to COPD exacerbation and possibility of right lower lobe pneumonia. There is also a right-sided pleural effusion seen on previous CAT scans and the most current chest x-ray. 2 acute hypercapnic respiratory failure probably related to COPD. Superimposed CHF/pneumonia cannot be completely excluded. 3 acute respiratory failure requiring intubation mechanical ventilation. Recovered. Currently maintaining O2 saturations in the 90s on 2 L/m per nasal cannula. 4 temporary hypotension and possible shock, differential diagnoses includes septic shock or cardiogenic shock, or possibly both. 5 right-sided pleural effusion [id number] in size 6 right basilar ground atelectasis 7 acute kidney injury, improving and the creatinine is down to 1.04 and the patient is producing adequate amount of urine output 8 obesity. 9 chronic psychotic disorder with multiple psychotropic medication including a combination of trazodone, Abilify, Cogentin and Lamictal. Rule out underlying depression. Rule out underlying PTSD. Rule out underlying bipolar disorder 10 COPD 11 chronic smoker 12 hypertension 13 hyperlipidemia Plan: The patient was seen and evaluated by Dr. Gallardo. He is currently stable from the pulmonary and critical care standpoint. We will repeat a chest x-ray today. We'll continue with his current medications. He remains on antibiotics in the form of Zosyn and Levaquin. Continue bronchodilators and steroids. Psychiatry is on the case as well. If his chest x-ray continues to show improvement we'll see the patient on as-needed basis.
--- NOTE | 2017-01-21 14:20 | XR ---
EXAMINATION TYPE: XR chest 1V portable DATE OF EXAM: 01/21/2017 COMPARISON: 01/18/2017 INDICATION: Right lower lobe infiltrate TECHNIQUE: Single frontal view of the chest is obtained. FINDINGS: The heart size is normal. The pulmonary vasculature is normal. Right lower lobe infiltrate appears similar to prior study. Small right pleural effusions remaining p resent. There is better visualization of the left diaphragm. Left central venous catheter is present with the tip in the superior Vena cava region. Endotracheal tube and nasogastric tube is been removed. IMPRESSION: 1. Stable right lower lobe infiltrate and small right pleural effusion
[2017-01-21] MEDS: SODIUM CHLORIDE 0.9% 1,000 ML IV SCH (15:41)
[2017-01-21 17:05] LABS: Glucose,Whole Blood 123 mg/dL (75-99)
[2017-01-21 20:33] LABS: Glucose,Whole Blood 168 mg/dL (75-99)
[2017-01-21 20:44] VITALS: RESP 16
[2017-01-21] MEDS: BENZTROPINE MESYLATE 1 MG TAB PO SCH (22:01)
[2017-01-21] MEDS: OLANZapine 2.5 MG TAB PO SCH (22:02)
[2017-01-21] MEDS: ATORVASTATIN 40 MG TAB PO SCH (22:02)
[2017-01-21] MEDS: traZODone HCL 100 MG TAB PO SCH (22:02)
[2017-01-22 06:25] LABS: Glucose,Whole Blood 141 mg/dL (75-99)
[2017-01-22] MEDS: INSULIN LISPRO (humaLOG) 300 UNIT/3 ML VIAL SQ SCH ×2 (06:30→12:29)
[2017-01-22 07:03] LABS: Glucose,Whole Blood 130 mg/dL (75-99)
[2017-01-22 07:46] VITALS: TEMP 97.7
[2017-01-22] MEDS: NAPROXEN 250 MG TAB PO SCH (08:48)
[2017-01-22] MEDS: PIPERACILLIN-TAZOBACTAM 3.375 GM in DEXTROSE/WATER 1 50ML.BAG IVPB SCH (08:48)
[2017-01-22] MEDS: methylPREDNISolone SOD SUCCI 40 MG/ML 1 ML VIAL IV SCH (08:48)
[2017-01-22] MEDS: PANTOPRAZOLE 40 MG TABLET PO SCH (08:48)
[2017-01-22] MEDS: FERROUS SULFATE 325 MG TAB PO SCH (08:49)
[2017-01-22] MEDS: ENOXAPARIN 40 MG/0.4 ML SYRINGE SQ SCH (08:49)
[2017-01-22] MEDS: ASPIRIN 81 MG CHEW PO SCH (08:49)
[2017-01-22] MEDS: lamoTRIgine 100 MG TAB PO SCH (08:50)
[2017-01-22] MEDS: FLUCONAZOLE 100 MG TAB PO SCH (08:50)
--- NOTE | 2017-01-22 11:29 | P.DS ---
Providers Date of admission: 01/15/17 16:40 Attending physician: María Elena Curry Consults: 01/15/17 18:36 Consult Physician Routine Consulting Provider: Bobbi Goldstein Consult Reason/Comments: pneumonia Do you want consulting provider notified?: Yes 01/15/17 18:37 Consult Physician Routine Consulting Provider: Shanika Stahl Consult Reason/Comments: high trops Do you want consulting provider notified?: Yes 01/15/17 19:36 Consult Physician Routine Consulting Provider: Danae Parekh Consult Reason/Comments: Psych Hx Do you want consulting provider notified?: Yes, Notify in am Primary care physician: Cassidy [facility] Course: This 71-year-old gentleman was admitted with a COPD exacerbation also had other medical issues including right lower lobe pneumonia and S Sonya status post minimally considerably treated with ICU management and antibiotics and steroids improved significantly seen by pulmonology consultation was seen in multiple consultations and progress notes for further information about significantly and the patient was a smoker and a large of 7. The following of his medications On exam with si s2 normal normal abdomen soft nontender nervous system mild weakness respiratory system bilateral scattered rhonchi and crackles Plan - Discharge Summary New Discharge Prescriptions: New Fluconazole [Diflucan] 100 mg PO DAILY #0 tab Ipratropium-Albuterol Nebulize [Duoneb 0.5 mg-3 mg/3 ml Soln] 3 ml INHALATION RT-QID PRN neb PRN Reason: Shortness Of Breath Or Wheezing Levofloxacin [Levaquin] 750 mg PO Q24H tab OLANZapine [ZyPREXA] 7.5 mg PO HS #20 tab Pantoprazole [Protonix] 40 mg PO AC-BRKFST tab predniSONE 10 mg PO DIRECTED #30 tab Continue Aspirin EC [Ecotrin Low Dose] 81 mg PO DAILY ARIPiprazole [Abilify] 30 mg PO DAILY traZODone HCL 100 mg PO HS Naproxen [Naprosyn] 500 mg PO Q12HR Acetaminophen [Tylenol] 500 mg PO Q6H PRN PRN Reason: Pain Lisinopril [Zestril] 10 mg PO DAILY Atorvastatin [Lipitor] 40 mg PO HS lamoTRIgine [LaMICtal] 100 mg PO BID Furosemide [Lasix] 40 mg PO DAILY Benztropine Mesylate [Cogentin] 2 mg PO HS Diazepam [Valium] 5 mg PO TID #30 Changed Ferrous Sulfate [Feosol] 325 mg PO DAILY #1 Discharge Medication List ARIPiprazole [Abilify] 30 mg PO DAILY 01/15/17 [History] Acetaminophen [Tylenol] 500 mg PO Q6H PRN 01/15/17 [History] Aspirin EC [Ecotrin Low Dose] 81 mg PO DAILY 01/15/17 [History] Atorvastatin [Lipitor] 40 mg PO HS 01/15/17 [History] Benztropine Mesylate [Cogentin] 2 mg PO HS 01/15/17 [History] Furosemide [Lasix] 40 mg PO DAILY 01/15/17 [History] Lisinopril [Zestril] 10 mg PO DAILY 01/15/17 [History] Naproxen [Naprosyn] 500 mg PO Q12HR 01/15/17 [History] lamoTRIgine [LaMICtal] 100 mg PO BID 01/15/17 [History] traZODone HCL 100 mg PO HS 01/15/17 [History] Diazepam [Valium] 5 mg PO TID #30 01/22/17 [Rx] Ferrous Sulfate [Feosol] 325 mg PO DAILY #1 01/22/17 [Rx] Fluconazole [Diflucan] 100 mg PO DAILY #0 tab 01/22/17 [Rx] Ipratropium-Albuterol Nebulize [Duoneb 0.5 mg-3 mg/3 ml Soln] 3 ml INHALATION RT -QID PRN neb 01/22/17 [Rx] Levofloxacin [Levaquin] 750 mg PO Q24H tab 01/22/17 [Rx] OLANZapine [ZyPREXA] 7.5 mg PO HS #20 tab 01/22/17 [Rx] Pantoprazole [Protonix] 40 mg PO AC-BRKFST tab 01/22/17 [Rx] predniSONE 10 mg PO DIRECTED #30 tab 01/22/17 [Rx] Follow up Appointment(s)/Referral(s): Sebastian Jameson, [NON-STAFF] - As Needed Samantha Altman MD [REFERRING] - 1-2 days Activity/Diet/Wound Care/Special Instructions: diet cardiac act as tolerated ac achs Discharge Disposition: TRANSFER TO SNF/ECF
[2017-01-22 11:30] LABS: Glucose,Whole Blood 166 mg/dL (75-99)
[2017-01-22] MEDS: LEVOFLOXACIN 750 MG TAB PO SCH (12:31)
[2017-01-22 14:22] VITALS: BP 131/74; PULSE 102
--- NOTE | 2017-01-23 08:50 | PN ---
DATE OF SERVICE: 01/16/2017 This is a 71-year-old gentleman who was admitted with generalized weakness, also thought to have right lower lobe pneumonia. The patient also had bilateral lung lesions, Dr. Goldstein is following the patient closely. PAST MEDICAL HISTORY: Reviewed. REVIEW OF SYSTEMS: CARDIOVASCULAR SYSTEM: No angina. RESPIRATORY SYSTEM: As mentioned earlier. GI: No nausea. : No dysuria. NERVOUS SYSTEM: No numbness or weakness. Current medications are reviewed and include Albuterol, Atrovent updrafts q.i.d. , p.r.n., aspirin, Lipitor, Cogentin, Lovenox, iron sulfate, Diflucan, Lamictal , Levaquin, Solu-Medrol, Naprosyn, Zofran, Protonix, Zosyn IV, Zestril. PHYSICAL EXAM: Patient is alert and oriented x2. Pulse 67, blood pressure is 114/53, respirations 24, temperature normal, pulse ox 100%. HEENT: Conjunctivae normal. NECK: No jugular venous distension. RESPIRATORY: Breath sounds diminished at the bases, bilateral scattered rhonchi , no crackles. ABDOMEN: Soft, nontender. LEGS: No edema, no swelling. NERVOUS SYSTEM: Higher functions as mentioned. Moves all 4 limbs, no focal deficits. LYMPHATICS: No lymph node enlargement. SKIN: No ulcer, rash, bleeding. Labs are reviewed. ASSESSMENT: 1. Chronic obstructive pulmonary disease exacerbation with right lobe pneumonia with possible sepsis present on admission. 2. Acute hypoxic, hypercarbic respiratory failure. 3. Sepsis with hypotension secondary to pneumonia. 4. Acute kidney injury with presumed acute tubular necrosis. 5. Chronic psychotic disorder. 6. Multiple medical issues. RECOMMENDATION: Recommend to continue with current medication. Continue with the monitoring and symptomatic treatment. Otherwise, at this time will continue to monitor the patient in ICU. Closely monitor. Guarded prognosis. Further recommendations to follow. Closely follow with Dr. Gallardo and Dr. Goldstein. [facility]
--- NOTE | 2017-01-23 09:00 | PN ---
DATE OF SERVICE: 01/18/2017 This is a 71-year-old gentleman who was admitted with COPD acute exacerbation as well as pneumonia, still on mechanical ventilation this morning. The patient is being closely monitored. Dr. Bowling is following the patient closely and patient on broad spectrum IV antibiotics. PAST MEDICAL HISTORY: Reviewed. REVIEW OF SYSTEMS: Could not be taken, patient mechanically ventilated. Current medications are reviewed and include bronchodilators, Zyprexa, Protonix , Zosyn IV, Desyrel, and Lipitor, Cogentin, aspirin, DuoNeb, iron sulfate, Lovenox, Diflucan. PHYSICAL EXAM: Patient is mechanically ventilated. Pulse 53, blood pressure 81/47, respirations 18, temperature is 97.1, pulse ox 97% on 40% mechanical ventilation. is noted. HEENT: Conjunctivae normal. NECK: No jugular venous distension. CARDIOVASCULAR SYSTEM: S1, S2, muffled. RESPIRATORY: Breath sounds diminished at the bases, bilateral scattered rhonchi , no crackles. ABDOMEN: Soft, nontender, no mass palpable. LEGS: No edema, no swelling. NERVOUS SYSTEM: Diffusely weak. Labs are reviewed. ASSESSMENT: 1. Chronic obstructive pulmonary disease acute exacerbation with right lower pneumonia, possibly gram negative with sepsis. 2. Acute hypoxic respiratory failure with sepsis and mechanical ventilation. 3. Sepsis with hypotension secondary to pneumonia. 4. Acute kidney injury with presumed acute tubular necrosis. 5. Chronic psychotic disorder. RECOMMENDATION: Recommend to continue with the current medication and symptomatic treatment. Otherwise, at this time will monitor patient closely. Other than that, guarded prognosis. Further weaning pattern per Dr. Gallardo. Further recommendations to follow. [facility]
--- NOTE | 2017-01-23 09:07 | PN ---
DATE OF SERVICE: 01/19/2017 This is a 71-year-old gentleman admitted with COPD acute exacerbation and also pneumonia. The patient is also in respiratory failure. Patient mechanically ventilated and extubated. No chest pain or palpitation, no fever. On exam, alert and oriented x2. The patient is mildly confused. Pulse is 85, blood pressure 130/75, respirations 20, temperature is normal, pulse ox is 94% on 2 L. HEENT: Conjunctivae normal. NECK: No jugular venous distension. CARDIOVASCULAR SYSTEM: S1, S2, muffled. RESPIRATORY: Breath sounds diminished at the bases. A few scattered rhonchi. ABDOMEN: Soft. LEGS: No edema, no swelling. NERVOUS SYSTEM: No focal deficits. Labs are reviewed. ASSESSMENT: 1. Chronic obstructive pulmonary disease acute exacerbation with right lobe pneumonia with possible sepsis. 2. Acute hypoxic respiratory failure. 3. Sepsis with hypotension secondary to pneumonia. 4. Acute kidney injury with presumed acute tubular necrosis. 5. Multiple medical issues. RECOMMENDATION: Recommend to continue with the current medication. Continue with the symptomatic treatment. Otherwise, closely monitor. Further recommendations to follow. Continue with antibiotics. [facility]
--- NOTE | 2017-01-23 09:15 | PN ---
DATE OF SERVICE: 01/20/2017 This is a 71-year-old gentleman who was admitted with COPD acute exacerbation, right lobe pneumonia. Also had a possible sepsis. Patient had acute hypoxic, hypercarbic respiratory failure. Patient is status post extubation. No chest pain or palpitation, no fever. On exam, alert and oriented x3. Pulse 86, blood pressure 149/69, respirations 18, temperature is 98.4, pulse ox 93% on 2 L. HEENT: Conjunctivae normal. NECK: No jugular venous distension. CARDIOVASCULAR SYSTEM: S1, S2, muffled. RESPIRATORY: Breath sounds diminished at the bases, a few scattered rhonchi, no crackles. ABDOMEN: Soft. LEGS: No edema, no swelling. NERVOUS SYSTEM: No focal deficits. Labs are reviewed. ASSESSMENT: 1. Chronic obstructive pulmonary disease acute exacerbation with right lobe pneumonia with possible sepsis. 2. Acute hypoxic and hypercarbic respiratory failure, status post mechanical ventilation. 3. Sepsis with hypotension. 4 Acute kidney injury. 5. Chronic psychotic disorder. RECOMMENDATION: Recommend to continue with the current medication. Continue with the monitoring and symptomatic treatment. Otherwise, I will continue to monitor. Guarded prognosis because of multiple complex medical issues. Further recommendations to follow. PT, OT evaluation and possible ECF rehab. Sensorium is definitely improved. [facility]
--- NOTE | 2017-01-23 09:21 | PN ---
DATE OF SERVICE: 01/22/2017 This is a 71-year-old gentleman who was admitted with COPD acute exacerbation as well as pneumonia, who is being closely monitored. PT, OT is evaluating the patient. Patient's sensorium has improved significantly. No chest pain, no palpitation, no fever. On exam, alert and oriented x2. Pulse is 85, blood pressure 125/80, respirations 16, temperature is 98.1, pulse ox 97% on 2 L. HEENT: Conjunctivae normal. NECK: No jugular venous distension. CARDIOVASCULAR SYSTEM: S1, S2, muffled. RESPIRATORY: Breath sounds diminished at the bases, a few scattered rhonchi, no crackles. ABDOMEN: Soft, nontender. LEGS: No edema, no swelling. NERVOUS SYSTEM: No focal deficits. Labs are noted. ASSESSMENT: 1. Chronic obstructive pulmonary disease acute exacerbation with acute right lobe pneumonia with possibly gram-negative sepsis. 2. Acute hypoxic, hypercarbic respiratory failure, status post mechanical ventilation. 3. Sepsis with hypotension secondary to pneumonia. 4. Acute kidney injury with prerenal factors and acute tubular necrosis. 5. Chronic psychotic disorder. 6. Multiple medical issues. RECOMMENDATION: Recommend to continue with the current medications. Continue with the bronchodilators. Continue with antibiotics. Closely follow with Dr. Gallardo. Further recommendations to follow. Possible ECF rehab. RICHARDD
--- NOTE | 2017-01-23 09:38 | PN ---
DATE OF SERVICE: 01/17/2017 This 71-year-old gentleman who was admitted with significant difficulties including pneumonia and as well as COPD exacerbation also had acute respiratory failure also. The patient is intubated and Dr. Gallardo is following the patient closely. The patient is on mechanical ventilation. The patient is broad- spectrum IV antibiotics. PAST MEDICAL HISTORY: Reviewed. REVIEW OF SYSTEMS: Could not be taken. The current medications are reviewed again includin. Naprosyn. 2. Zyprexa. 3. Protonix. 4. Zosyn IV. 5. Desyrel. PHYSICAL EXAM: The patient is mechanically ventilated and sedated. Pulse is 63 , blood pressure 119/70, respirations 24, temperature normal, pulse ox 99% on 50 % FiO2. Mechanical ventilation settings are noted. HEENT: Conjunctivae normal. NECK: No jugular venous distention. CARDIOVASCULAR: S1 and S2, muffled. RESPIRATORY: Breath sounds diminished at the bases. A few scattered rhonchi and crackles. ABDOMEN: Soft, nontender. LEGS: No edema. NERVOUS SYSTEM: No focal deficits. Labs are 131, 66, otherwise the hemoglobin is 10.8. Other labs are noted. ASSESSMENT: 1. Chronic obstructive pulmonary disease acute exacerbation with right lobe pneumonia. 2. Acute hypoxic respiratory failure on mechanical ventilation. 3. Sepsis. 4. Hypotension. 5. Acute kidney injury. 6. Chronic psychotic disorder. 7. Multiple medical issues. RECOMMENDATION AND DISCUSSION: Recommend to continue current medications, continue with mechanical ventilation ( ), IV antibiotics. Continue with the current medications. Follow closely with Dr. Gallardo. Continue with mechanical ventilation and antibiotics. Prognosis guarded. Further recommendations to follow. [facility]
== END 2017-01-22 14:23 | DRG 871 ==
LOC: EC 09:49 → 6SEL 16:40 → EEVIPCON 16:40 → 6ICU 01-16 12:45 → 5MS5E 01-19 14:01
PROVIDERS: ADMIT Hospitalist; ATTEND Hospitalist
PROC: 5A1945Z Respiratory Ventilation, 24-96 Consecutive Hours (ICD-10-PCS; principal; 2017-01-16)
PROC: 0BH18EZ Insertion of Endotracheal Airway into Trachea, Via Natural or Artificial Opening Endoscopic (ICD-10-PCS; principal; 2017-01-16)
PROC: 4A133B1 Monitoring of Arterial Pressure, Peripheral, Percutaneous Approach (ICD-10-PCS; principal; 2017-01-16)
PROC: 02HV33Z Insertion of Infusion Device into Superior Vena Cava, Percutaneous Approach (ICD-10-PCS; principal; 2017-01-16)
PROC: 4A133J1 Monitoring of Arterial Pulse, Peripheral, Percutaneous Approach (ICD-10-PCS; principal; 2017-01-16)
PROC: 03HY32Z Insertion of Monitoring Device into Upper Artery, Percutaneous Approach (ICD-10-PCS; principal; 2017-01-16)
DX: A41.9 Sepsis, unspecified organism (principal); J96.21 Acute and chronic respiratory failure with hypoxia; N17.0 Acute kidney failure with tubular necrosis; J18.9 Pneumonia, unspecified organism; R57.0 Cardiogenic shock; J44.0 Chronic obstructive pulmonary disease with (acute) lower respiratory infection; I11.0 Hypertensive heart disease with heart failure; I42.9 Cardiomyopathy, unspecified; R65.21 Severe sepsis with septic shock; E87.4 Mixed disorder of acid-base balance; E66.01 Morbid (severe) obesity due to excess calories; I50.9 Heart failure, unspecified; J96.22 Acute and chronic respiratory failure with hypercapnia; J44.1 Chronic obstructive pulmonary disease with (acute) exacerbation; I27.2 Other secondary pulmonary hypertension; E86.0 Dehydration; D63.8 Anemia in other chronic diseases classified elsewhere; E78.5 Hyperlipidemia, unspecified; F17.200 Nicotine dependence, unspecified, uncomplicated; F43.10 Post-traumatic stress disorder, unspecified; I49.3 Ventricular premature depolarization; I70.0 Atherosclerosis of aorta; Z68.32 Body mass index [BMI] 32.0-32.9, adult; Z79.899 Other long term (current) drug therapy
CPT/HCPCS: 36415; 70450; 71010; 71020; 71275; 80048; 80053; 81001; 82550; 82553; 82805; 83036; 83605; 83735; 83880; 84100; 84484; 85025; 85610; 85730; 87040; 87070; 87086; 87205; 93005; 93306; 94002; 94003; 94640; 94760; 94770; 96374; 96375; 99285

== ENCOUNTER 2017-02-26 18:35 | Inpatient (IN) | payer OTHER, MEDICARE ==
[2017-02-26] MEDS: SODIUM CHLORIDE 0.9% 500 ML IV SCH ×4 (19:00→20:30)
[2017-02-26] MEDS ORDERED: ONDANSETRON 4 MG/2 ML VIAL IVP STA (19:19)
--- NOTE | 2017-02-26 19:19 | ED ---
General Adult HPI - General Source: patient, RN notes reviewed Mode of arrival: wheelchair Limitations: no limitations <Danilo Jade - Last Filed: 02/26/17 20:07> <Kade Mckeon - Last Filed: 02/27/17 00:09> - General Chief complaint: Nausea/Vomiting/Diarrhea Stated complaint: NAUSEA Time Seen by Provider: 02/26/17 19:00 - History of Present Illness Initial comments: This is a 71-year-old male who presents emergency Department because he started feeling nauseous last night and all day today he's been vomiting and not eating. Patient states he continues to feel nauseated. Patient denies any abdominal pain but states he occasionally said diarrhea. Patient denies any headache patient denies numbness weakness. Patient denies chest pain difficult breathing shortness of breath. His pulse ox however is low. Patient has some mental disabilities and therefore his history may or may not be accurate. Patient was recently in the hospital for sepsis and pneumonia he is unable to tell us that I found that out from an old chart. Patient currently states he feels weak and just doesn't feel good. Patient denies any recent injury or trauma. (Danilo Jade) - Related Data Home Medications Medication Instructions Recorded Confirmed ARIPiprazole [Abilify] 30 mg PO DAILY 01/15/17 02/26/17 Acetaminophen [Tylenol] 500 mg PO Q6H PRN 01/15/17 02/26/17 Aspirin EC [Ecotrin Low Dose] 81 mg PO DAILY 01/15/17 02/26/17 Atorvastatin [Lipitor] 20 mg PO HS 01/15/17 02/26/17 Benztropine Mesylate [Cogentin] 2 mg PO HS 01/15/17 02/26/17 Furosemide [Lasix] 40 mg PO DAILY 01/15/17 02/26/17 Lisinopril [Zestril] 10 mg PO DAILY 01/15/17 02/26/17 Naproxen [Naprosyn] 500 mg PO BID 01/15/17 02/26/17 lamoTRIgine [LaMICtal] 100 mg PO BID 01/15/17 02/26/17 traZODone HCL 100 mg PO HS 01/15/17 02/26/17 Ferrous Sulfate [Feosol] 325 mg PO TID 02/26/17 02/26/17 Previous Rx's Medication Instructions Recorded Diazepam [Valium] 5 mg PO TID #30 01/22/17 Ipratropium-Albuterol Nebulize 3 ml INHALATION RT-QID PRN neb 01/22/17 [Duoneb 0.5 mg-3 mg/3 ml Soln] Allergies Allergy/AdvReac Type Severity Reaction Status Date / Time No Known Allergies Allergy Verified 02/26/17 19:38 Review of Systems ROS Other: All systems not noted in ROS Statement are negative. <Danilo aJde - Last Filed: 02/26/17 20:07> ROS Other: All systems not noted in ROS Statement are negative. <Kade Mckeon - Last Filed: 02/27/17 00:09> ROS Statement: Those systems with pertinent positive or pertinent negative responses have been documented in the HPI. Past Medical History Past Medical History: No Reported History Additional Past Medical History / Comment(s): Obesity, pulmonary resident, depression, PTSD, SCHIZOPHRENIA PARANOID TYPE, COPD, chronic hypercapnic respiratory failure, hyperlipidemia, hypertension, History of Any Multi-Drug Resistant Organisms: None Reported Past Surgical History: No Surgical Hx Reported Additional Past Surgical History / Comment(s): patient refused to disclose Past Anesthesia/Blood Transfusion Reactions: No Reported Reaction Past Psychological History: Unable to Obtain Smoking Status: Current some day smoker Past Alcohol Use History: None Reported Past Drug Use History: None Reported - Past Family History Father Family Medical History: Unable to Obtain Mother Family Medical History: Unable to Obtain <Danilo Jade - Last Filed: 02/26/17 20:07> General Exam Limitations: no limitations <Danilo Jade - Last Filed: 02/26/17 20:07> <Kade Mckeon - Last Filed: 02/27/17 00:09> - General Exam Comments Initial Comments: GENERAL: Patient is well-developed and well-nourished. Patient is nontoxic and well- hydrated and is in moderate distress and the patient is diaphoretic at this time. ENT: Neck is soft and supple. No significant lymphadenopathy is noted. Oropharynx is clear. Moist mucous membranes. Neck has full range of motion without eliciting any pain. EYES: The sclera were anicteric and conjunctiva were pink and moist. Extraocular movements were intact and pupils were equal round and reactive to light. Eyelids were unremarkable. PULMONARY: Unlabored respirations. Good breath sounds bilaterally. No audible rales rhonchi or wheezing was noted. CARDIOVASCULAR: There is a regular rate and rhythm without any murmurs gallops or rubs. ABDOMEN: Soft and nontender with normal bowel sounds. No palpable organomegaly was noted. There is no palpable pulsatile mass. SKIN: Skin is clear with no lesions or rashes and otherwise unremarkable. NEUROLOGIC: Patient is alert and oriented x3. Cranial nerves II through XII are grossly intact. Motor and sensory are also intact. Normal speech, volume and content. Symmetrical smile. MUSCULOSKELETAL: Normal extremities with adequate strength and full range of motion. No lower extremity swelling or edema. No calf tenderness. LYMPHATICS: No significant lymphadenopathy is noted (Danilo Jade) Medical Decision Making - Lab Data Result diagrams: 02/26/17 19:05 02/26/17 19:05 <Danilo Jade - Last Filed: 02/26/17 20:07> - Lab Data Result diagrams: 02/26/17 19:05 02/26/17 19:05 <Kade Mckeon - Last Filed: 02/27/17 00:09> - Medical Decision Making EKG shows sinus tachycardia at 170 bpm AK interval 260 QRS is 84 Q-T intervals 320 QTC is 446 per patient's EKG shows no ST segment elevation or depression or T wave abnormalities are noted Dr. Denton will be taking over the care of this patient at 7:30 (Danilo Jade) - Lab Data Lab Results 02/26/17 02/26/17 02/26/17 Range/Units 19:05 19:05 19:05 WBC 28.5 H* (3.8-10.6) k/uL RBC 4.98 (4.30-5.90) m/uL Hgb 12.9 L (13.0-17.5) gm/dL Hct 41.7 (39.0-53.0) % MCV 83.7 (80.0-100.0) fL MCH 26.0 (25.0-35.0) pg MCHC 31.0 (31.0-37.0) g/dL RDW 17.0 H (11.5-15.5) % Plt Count 314 (150-450) k/uL Neutrophils % 94 % Lymphocytes % 2 % Monocytes % 3 % Eosinophils % 0 % Basophils % 0 % Neutrophils # 26.7 H (1.3-7.7) k/uL Lymphocytes # 0.7 L (1.0-4.8) k/uL Monocytes # 0.8 (0-1.0) k/uL Eosinophils # 0.0 (0-0.7) k/uL Basophils # 0.1 (0-0.2) k/uL Hypochromasia Marked Anisocytosis Slight PT 11.5 (9.0-12.0) sec INR 1.1 (<1.2) APTT 27.0 (22.0-30.0) sec D-Dimer 4.65 H (<0.60) mg/L FEU Sample Site ABG pH (7.35-7.45) ABG pCO2 (35-45) mmHg ABG pO2 (83-108) mmHg ABG HCO3 (21-25) mmol/L ABG Total CO2 (19-24) mmol/L ABG O2 Saturation (94-97) % ABG Base Excess mmol/L FiO2 % Sodium (137-145) mmol/L Potassium (3.5-5.1) mmol/L Chloride (98-107) mmol/L Carbon Dioxide (22-30) mmol/L Anion Gap mmol/L BUN (9-20) mg/dL Creatinine (0.66-1.25) mg/dL Est GFR (MDRD) Af Amer (>60 ml/min/1.73 sqM) Est GFR (MDRD) Non-Af (>60 ml/min/1.73 sqM) Glucose (74-99) mg/dL Lactic Ac Sepsis Rflx Plasma Lactic Acid Ezequiel (0.7-2.0) mmol/L Calcium (8.4-10.2) mg/dL Total Bilirubin (0.2-1.3) mg/dL AST (17-59) U/L ALT (21-72) U/L Alkaline Phosphatase (38-126) U/L Total Creatine Kinase 39 L (55-170) U/L CK-MB (CK-2) 0.6 (0.0-2.4) ng/mL CK-MB (CK-2) Rel Index 1.5 Troponin I 0.210 H* (0.000-0.034) ng/mL NT-Pro-B Natriuret Pep pg/mL Total Protein (6.3-8.2) g/dL Albumin (3.5-5.0) g/dL Urine Color Urine Appearance (Clear) Urine pH (5.0-8.0) Ur Specific Theodore (1.001-1.035) Urine Protein (Negative) Urine Glucose (UA) (Negative) Urine Ketones (Negative) Urine Blood (Negative) Urine Nitrite (Negative) Urine Bilirubin (Negative) Urine Urobilinogen (<2.0) mg/dL Ur Leukocyte Esterase (Negative) Urine RBC (0-5) /hpf Urine WBC (0-5) /hpf Urine WBC Clumps (None) /hpf Ur Squamous Epith Cells (0-4) /hpf Urine Bacteria (None) /hpf Hyaline Casts (0-2) /lpf Granular Casts (0) /lpf Gastric Occult Blood (Negative) 02/26/17 02/26/17 02/26/17 Range/Units 19:05 19:05 19:05 WBC (3.8-10.6) k/uL RBC (4.30-5.90) m/uL Hgb (13.0-17.5) gm/dL Hct (39.0-53.0) % MCV (80.0-100.0) fL MCH (25.0-35.0) pg MCHC (31.0-37.0) g/dL RDW (11.5-15.5) % Plt Count (150-450) k/uL Neutrophils % % Lymphocytes % % Monocytes % % Eosinophils % % Basophils % % Neutrophils # (1.3-7.7) k/uL Lymphocytes # (1.0-4.8) k/uL Monocytes # (0-1.0) k/uL Eosinophils # (0-0.7) k/uL Basophils # (0-0.2) k/uL Hypochromasia Anisocytosis PT (9.0-12.0) sec INR (<1.2) APTT (22.0-30.0) sec D-Dimer (<0.60) mg/L FEU Sample Site ABG pH (7.35-7.45) ABG pCO2 (35-45) mmHg ABG pO2 (83-108) mmHg ABG HCO3 (21-25) mmol/L ABG Total CO2 (19-24) mmol/L ABG O2 Saturation (94-97) % ABG Base Excess mmol/L FiO2 % Sodium 140 (137-145) mmol/L Potassium 4.8 (3.5-5.1) mmol/L Chloride 93 L (98-107) mmol/L Carbon Dioxide 34 H (22-30) mmol/L Anion Gap 13 mmol/L BUN 55 H (9-20) mg/dL Creatinine 3.50 H (0.66-1.25) mg/dL Est GFR (MDRD) Af Amer 21 (>60 ml/min/1.73 sqM) Est GFR (MDRD) Non-Af 17 (>60 ml/min/1.73 sqM) Glucose 123 H (74-99) mg/dL Lactic Ac Sepsis Rflx Plasma Lactic Acid Ezeqiuel 2.4 H* (0.7-2.0) mmol/L Calcium 8.8 (8.4-10.2) mg/dL Total Bilirubin 1.1 (0.2-1.3) mg/dL AST 29 (17-59) U/L ALT 28 (21-72) U/L Alkaline Phosphatase 136 H (38-126) U/L Total Creatine Kinase (55-170) U/L CK-MB (CK-2) (0.0-2.4) ng/mL CK-MB (CK-2) Rel Index Troponin I (0.000-0.034) ng/mL NT-Pro-B Natriuret Pep 86250 pg/mL Total Protein 6.0 L (6.3-8.2) g/dL Albumin 3.1 L (3.5-5.0) g/dL Urine Color Urine Appearance (Clear) Urine pH (5.0-8.0) Ur Specific Theodore (1.001-1.035) Urine Protein (Negative) Urine Glucose (UA) (Negative) Urine Ketones (Negative) Urine Blood (Negative) Urine Nitrite (Negative) Urine Bilirubin (Negative) Urine Urobilinogen (<2.0) mg/dL Ur Leukocyte Esterase (Negative) Urine RBC (0-5) /hpf Urine WBC (0-5) /hpf Urine WBC Clumps (None) /hpf Ur Squamous Epith Cells (0-4) /hpf Urine Bacteria (None) /hpf Hyaline Casts (0-2) /lpf Granular Casts (0) /lpf Gastric Occult Blood (Negative) 02/26/17 02/26/17 02/26/17 Range/Units 19:30 19:53 21:59 WBC (3.8-10.6) k/uL RBC (4.30-5.90) m/uL Hgb (13.0-17.5) gm/dL Hct (39.0-53.0) % MCV (80.0-100.0) fL MCH (25.0-35.0) pg MCHC (31.0-37.0) g/dL RDW (11.5-15.5) % Plt Count (150-450) k/uL Neutrophils % % Lymphocytes % % Monocytes % % Eosinophils % % Basophils % % Neutrophils # (1.3-7.7) k/uL Lymphocytes # (1.0-4.8) k/uL Monocytes # (0-1.0) k/uL Eosinophils # (0-0.7) k/uL Basophils # (0-0.2) k/uL Hypochromasia Anisocytosis PT (9.0-12.0) sec INR (<1.2) APTT (22.0-30.0) sec D-Dimer (<0.60) mg/L FEU Sample Site R radial ABG pH 7.41 (7.35-7.45) ABG pCO2 55 H (35-45) mmHg ABG pO2 69 L (83-108) mmHg ABG HCO3 35 H (21-25) mmol/L ABG Total CO2 36 H (19-24) mmol/L ABG O2 Saturation 93.0 L (94-97) % ABG Base Excess 9.7 mmol/L FiO2 36 % Sodium (137-145) mmol/L Potassium (3.5-5.1) mmol/L Chloride (98-107) mmol/L Carbon Dioxide (22-30) mmol/L Anion Gap mmol/L BUN (9-20) mg/dL Creatinine (0.66-1.25) mg/dL Est GFR (MDRD) Af Amer (>60 ml/min/1.73 sqM) Est GFR (MDRD) Non-Af (>60 ml/min/1.73 sqM) Glucose (74-99) mg/dL Lactic Ac Sepsis Rflx Y Plasma Lactic Acid Ezequiel (0.7-2.0) mmol/L Calcium (8.4-10.2) mg/dL Total Bilirubin (0.2-1.3) mg/dL AST (17-59) U/L ALT (21-72) U/L Alkaline Phosphatase (38-126) U/L Total Creatine Kinase (55-170) U/L CK-MB (CK-2) (0.0-2.4) ng/mL CK-MB (CK-2) Rel Index Troponin I (0.000-0.034) ng/mL NT-Pro-B Natriuret Pep pg/mL Total Protein (6.3-8.2) g/dL Albumin (3.5-5.0) g/dL Urine Color Urine Appearance (Clear) Urine pH (5.0-8.0) Ur Specific Theodore (1.001-1.035) Urine Protein (Negative) Urine Glucose (UA) (Negative) Urine Ketones (Negative) Urine Blood (Negative) Urine Nitrite (Negative) Urine Bilirubin (Negative) Urine Urobilinogen (<2.0) mg/dL Ur Leukocyte Esterase (Negative) Urine RBC (0-5) /hpf Urine WBC (0-5) /hpf Urine WBC Clumps (None) /hpf Ur Squamous Epith Cells (0-4) /hpf Urine Bacteria (None) /hpf Hyaline Casts (0-2) /lpf Granular Casts (0) /lpf Gastric Occult Blood Positive (Negative) 02/26/17 02/26/17 Range/Units 22:35 23:20 WBC (3.8-10.6) k/uL RBC (4.30-5.90) m/uL Hgb (13.0-17.5) gm/dL Hct (39.0-53.0) % MCV (80.0-100.0) fL MCH (25.0-35.0) pg MCHC (31.0-37.0) g/dL RDW (11.5-15.5) % Plt Count (150-450) k/uL Neutrophils % % Lymphocytes % % Monocytes % % Eosinophils % % Basophils % % Neutrophils # (1.3-7.7) k/uL Lymphocytes # (1.0-4.8) k/uL Monocytes # (0-1.0) k/uL Eosinophils # (0-0.7) k/uL Basophils # (0-0.2) k/uL Hypochromasia Anisocytosis PT (9.0-12.0) sec INR (<1.2) APTT (22.0-30.0) sec D-Dimer (<0.60) mg/L FEU Sample Site ABG pH (7.35-7.45) ABG pCO2 (35-45) mmHg ABG pO2 (83-108) mmHg ABG HCO3 (21-25) mmol/L ABG Total CO2 (19-24) mmol/L ABG O2 Saturation (94-97) % ABG Base Excess mmol/L FiO2 % Sodium (137-145) mmol/L Potassium (3.5-5.1) mmol/L Chloride (98-107) mmol/L Carbon Dioxide (22-30) mmol/L Anion Gap mmol/L BUN (9-20) mg/dL Creatinine (0.66-1.25) mg/dL Est GFR (MDRD) Af Amer (>60 ml/min/1.73 sqM) Est GFR (MDRD) Non-Af (>60 ml/min/1.73 sqM) Glucose (74-99) mg/dL Lactic Ac Sepsis Rflx Plasma Lactic Acid Ezequiel 1.2 (0.7-2.0) mmol/L Calcium (8.4-10.2) mg/dL Total Bilirubin (0.2-1.3) mg/dL AST (17-59) U/L ALT (21-72) U/L Alkaline Phosphatase (38-126) U/L Total Creatine Kinase (55-170) U/L CK-MB (CK-2) (0.0-2.4) ng/mL CK-MB (CK-2) Rel Index Troponin I (0.000-0.034) ng/mL NT-Pro-B Natriuret Pep pg/mL Total Protein (6.3-8.2) g/dL Albumin (3.5-5.0) g/dL Urine Color Yellow Urine Appearance Turbid (Clear) Urine pH 5.5 (5.0-8.0) Ur Specific Theodore 1.015 (1.001-1.035) Urine Protein 2+ H (Negative) Urine Glucose (UA) Negative (Negative) Urine Ketones Negative (Negative) Urine Blood Moderate H (Negative) Urine Nitrite Negative (Negative) Urine Bilirubin Negative (Negative) Urine Urobilinogen <2.0 (<2.0) mg/dL Ur Leukocyte Esterase Large H (Negative) Urine RBC 19 H (0-5) /hpf Urine WBC >182 H (0-5) /hpf Urine WBC Clumps Occasional H (None) /hpf Ur Squamous Epith Cells 1 (0-4) /hpf Urine Bacteria Many H (None) /hpf Hyaline Casts 4 H (0-2) /lpf Granular Casts 6 (0) /lpf Gastric Occult Blood (Negative) Disposition <Danilo Jade - Last Filed: 02/26/17 20:07> <Kade Mckeon - Last Filed: 02/27/17 00:09> Clinical Impression: Urinary tract infection, Sepsis, Pneumonia Disposition: ADMITTED IP TO THIS HOSP Condition: Serious Referrals: Cassidy Daugherty MD [Primary Care Provider] - 1-2 days
[2017-02-26 19:44] LABS: ABG Base Excess 9.7 mmol/L; ABG HCO3 35 mmol/L (21-25); ABG PCO2 55 mmHg (35-45); ABG PH 7.41 (7.35-7.45); ABG PO2 69 mmHg (83-108); ABG TCO2 36 mmol/L (19-24)
[2017-02-26 19:51] LABS: Calcium 8.8 mg/dL (8.4-10.2); Potassium 4.8 mmol/L (3.5-5.1); Total Bilirubin 1.1 mg/dL (0.2-1.3)
[2017-02-26 20:01] LABS: Anisocytosis Slight; Basophils # (A) 0.1 k/uL (0-0.2); Basophils % (A) 0 %; CH 24.9; CHCM 29.9; Eosinophils % (A) 0 %; HCT 41.7 % (39.0-53.0); HDW 3.14; HGB 12.9 gm/dL (13.0-17.5); Hypochromasia Marked; INR 1.1 (<1.2); Luc % (Auto) 1; Lymphocytes # (A) 0.7 k/uL (1.0-4.8); Lymphocytes % (A) 2 %; MCV 83.7 fL (80.0-100.0); Mean Platelet Volume 8.1; Monocytes # (A) 0.8 k/uL (0-1.0); Monocytes % (A) 3 %; Neutrophils # (A) 26.7 k/uL (1.3-7.7); Neutrophils % (A) 94 %; Prothrombin Time 11.5 sec (9.0-12.0); RBC 4.98 m/uL (4.30-5.90); WBC (Perox) 28.36
[2017-02-26 20:04] LABS: WBC 28.5 k/uL (3.8-10.6)
[2017-02-26] MEDS ORDERED: SODIUM CHLORIDE 0.9% 1,000 ML IV ONE (20:11)
[2017-02-26 20:13] LABS: Creatine Kinase MB 0.6 ng/mL (0.0-2.4)
[2017-02-26 20:16] LABS: Troponin I 0.21 ng/mL (0.000-0.034)
--- NOTE | 2017-02-26 21:01 | XR ---
EXAMINATION TYPE: XR chest 2V DATE OF EXAM: 02/26/2017 COMPARISON: 01/21/2017 HISTORY: Fever TECHNIQUE: Frontal and lateral views of the chest are obtained. FINDINGS: There is dense consolidation within much of the right lower lobe. The overall lung inflation pattern is similar to the prior study, but there is a component of fine re ticular opacity throughout the lungs bilaterally reaching the periphery is occasional septal lines. T his suggests a component of interstitial phase pulmonary edema, mild in degree, and likely cardiogeni c with the mild moderately enlarged cardiac silhouette. There are no abnormal gas collections evident. IMPRESSION: 1. REDEMONSTRATED IS CONSOLIDATION THROUGHOUT THE RIGHT LOWER LOBE; WOULD SUGGEST FOLLOW UP OF THE RI T LOWER LOBE FINDINGS UNTIL RESOLUTION IS PROVEN. 2. SUSPECT NEW COMPONENT OF MILD INTERSTITIAL PHASE CARDIOGENIC PULMONARY EDEMA.
[2017-02-26] MEDS ORDERED: SODIUM CHLORIDE 0.9% 2,000 ML IV ONE (22:18)
[2017-02-26] MEDS ORDERED: PIPERACILLIN-TAZOBACTAM 3.375 GM in DEXTROSE/WATER 1 50ML.BAG IVPB STA (22:19)
[2017-02-26] MEDS ORDERED: LEVOFLOXACIN 750MG-D5W PMX 750 MG in DEXTROSE/WATER 1 150ML.BAG IVPB STA (22:20)
[2017-02-26 22:51] LABS: Appearance,Urine Turbid (Clear); Bacteria,Urine Many /hpf; Bilirubin,Urine Negative (Negative); Glucose,Urine (UA) Negative (Negative); Granular Casts,Urine 6 /lpf (0); Ketones,Urine Negative (Negative); Leukocyte Esterase,Urine Large (Negative); Nitrite,Urine Negative (Negative); PH, Urine 5.5 (5.0-8.0); Particle Count 45548; Protein,Urine 2+ (Negative); RBC,Urine 19 /hpf (0-5); Specific Gravity,Urine 1.015 (1.001-1.035); Squamous Epithelial Cell,Urine 1 /hpf (0-4); UA Billing (MACRO vs. MICRO) MICRO; Urobilinogen,Urine <2.0 mg/dL (<2.0); WBC,Urine >182 /hpf (0-5)
[2017-02-27] MEDS ORDERED: IPRATROPIUM-ALBUTEROL 3 ML NEB INHALATION PRN (00:06)
[2017-02-27] MEDS: ENOXAPARIN 100 MG/ML SYRINGE SQ SCH ×2 (02:08→12:20)
[2017-02-27] MEDS: HYDROCORTISONE SUCCINATE 100 MG/2 ML VIAL IV SCH ×3 (02:10→17:14)
[2017-02-27 06:23] LABS: Glucose,Whole Blood 134 mg/dL (75-99)
[2017-02-27] MEDS: INSULIN LISPRO (humaLOG) 300 UNIT/3 ML VIAL SQ SCH ×3 (06:46→19:36)
[2017-02-27] MEDS ORDERED: PIPERACILLIN-TAZOBACTAM 3.375 GM in DEXTROSE/WATER 1 50ML.BAG IVPB SCH (08:00)
[2017-02-27] MEDS ORDERED: HEPARIN SODIUM,PORCINE 5,000 UNIT/ML 1 ML VIAL SQ SCH (08:00)
[2017-02-27] MEDS ORDERED: FERROUS SULFATE 325 MG TAB PO SCH (09:00)
[2017-02-27] MEDS ORDERED: FAMOTIDINE 20 MG/2 ML VIAL IV SCH (09:00)
[2017-02-27] MEDS ORDERED: ARIPiprazole 15 MG TAB PO SCH (09:00)
[2017-02-27] MEDS ORDERED: LISINOPRIL 10 MG TAB PO SCH (09:00)
[2017-02-27] MEDS ORDERED: lamoTRIgine 100 MG TAB PO SCH (09:00)
[2017-02-27] MEDS ORDERED: DIAZEPAM 5 MG TAB PO SCH (09:00)
--- NOTE | 2017-02-27 09:24 | NM ---
EXAMINATION TYPE: NM pul vent and perfusion DATE OF EXAM: 02/27/2017 COMPARISON: Chest x-ray from yesterday. CTA chest January 15, 2017. HISTORY: History of COPD with shortness of breath rule out pulmonary embolism TECHNIQUE: Utilizing inhalation of 67.2 mCi Tc 99m DTPA aerosol and intravenous injection of 5.16 mC i of Tc 99m MAA, ventilation and perfusion images are acquired post injection in multiple projections . FINDINGS: There is marked central clumping and poor distribution of radiotracer on ventilation images. There is improved radiotracer uptake on the perfusion images. There are multiple matching defects are fairly moderate sized throughout the left lung involving predominantly lower lobe and lingula. There is luis praveen no evidence of mismatched defects. IMPRESSION: Low probability for pulmonary embolism.
[2017-02-27] MEDS: FUROSEMIDE 40 MG TAB PO SCH (10:00)
[2017-02-27] MEDS ORDERED: IV VANCOMYCIN PER PHARMACY 1 EACH MISC MISCELLANE PRN (11:45)
[2017-02-27 12:51] LABS: Anisocytosis Slight; Basophils # (A) 0.1 k/uL (0-0.2); Basophils % (A) 0 %; CH 24.2; CHCM 26.9; Eosinophils # (A) 0.1 k/uL (0-0.7); Eosinophils % (A) 0 %; HCT 40.9 % (39.0-53.0); HDW 2.93; HGB 11.9 gm/dL (13.0-17.5); Hypochromasia Marked; Luc # (Auto) 0.16; Luc % (Auto) 1; Lymphocytes # (A) 0.3 k/uL (1.0-4.8); Lymphocytes % (A) 1 %; MCH 26.2 pg (25.0-35.0); Mean Platelet Volume 8.4; Monocytes # (A) 0.4 k/uL (0-1.0); Monocytes % (A) 2 %; Neutrophils % (A) 96 %; RBC 4.53 m/uL (4.30-5.90); RDW 16.8 % (11.5-15.5); WBC 22.9 k/uL (3.8-10.6); WBC (Perox) 22.91
[2017-02-27 12:53] LABS: MCV 90.2 fL (80.0-100.0)
[2017-02-27 12:59] LABS: Calcium 7.2 mg/dL (8.4-10.2); Potassium 5.5 mmol/L (3.5-5.1)
[2017-02-27] MEDS ORDERED: SODIUM CHLORIDE 0.9% 250 ML IV ONE (13:38)
[2017-02-27 13:44] LABS: Glucose,Whole Blood 143 mg/dL (75-99)
[2017-02-27] MEDS ORDERED: NOREPINEPHRIN 4 MG-0.9% NS PMX 4 MG/250 ML ML IV ONE (13:52)
[2017-02-27] MEDS ORDERED: VANCOMYCIN 1,750 MG in SODIUM CHLORIDE 0.9% 250 ML IVPB ONE (14:00)
[2017-02-27 14:19] LABS: Glucose,Whole Blood 138 mg/dL (75-99)
[2017-02-27] MEDS ORDERED: NALOXONE 0.4 MG/ML 1 ML VIAL IV PRN (14:28)
[2017-02-27] MEDS ORDERED: NOREPINEPHRIN 4 MG-0.9% NS PMX 4 MG/250 ML ML IV SCH (14:45)
[2017-02-27] MEDS ORDERED: CISATRACURIUM 2 MG/ML 5 ML VIAL IV ONE (15:09)
[2017-02-27] MEDS ORDERED: NOREPINEPHRIN 16 MG-0.9%NS PMX 16 MG/250 ML ML IV SCH (15:15)
--- NOTE | 2017-02-27 15:31 | P.CNPUL ---
History of Present Illness Consult date: 02/27/17 Chief complaint: Hypotension, unresponsive History of present illness: A 71-year-old male patient who was admitted yesterday through the emergency department because of nausea, diminished oral intake, generalized weakness and lethargy. The patient apparently had dropped his oral intake and he was feeling progressively more weak. Denied having any chest pain. No cough or sputum production. No abdominal pain or abdominal distention. The patient was felt to be septic of a urinary source. His white cell count was elevated at 28.5 and the patient was also in acute kidney injury. Lactic acid was nonelevated. The patient's urinalysis was significant abnormal with significant number of white cell count and bacteria and the urine itself was quite dirty. The Carrasco catheter was inserted. The patient was started on a combination of vancomycin and Zosyn and he was admitted to the medical floor. This afternoon, the patient became hypotensive and diaphoretic. His blood pressure dropped down to the 50s systolic. At the same time the patient became tachycardic with a heart rate of 120. He was also becoming progressively more lethargic. He was on 6 L oxygen nasal cannula and his pulse ox was around 94%. The patient was brought into the intensive care unit. A triple lumen catheter was inserted. The patient was on IV fluids and pressors. For now the patient is already received 1-1/2 L of IV fluid in the form of normal saline. Levo fed was also initiated at 10 mics initially and currently it's at 30 mics. Urine output is diminished at this point. The patient was subsequently intubated as the patient did not he felt to be awake enough to protect his airway and he be has becoming progressively more hypoxic. I intubated this patient and put him on a mechanical ventilator on assist control mode at the rate of 24, tidal volume 500, PEEP of 5 and FiO2 100%. The patient will have a blood gases and chest x-ray done and these are still pending for now. The patient is known to me. Of taking care of him during a recent bout of sepsis and respiratory failure. The patient came into the ICU last month unresponsive and he was and CO2 narcosis. He was also in acute respiratory failure. He was a shock on pressors. Echocardiogram back then showed an ejection fraction of 40-45% with secondary pulmonary hypertension. CT angios the chest showed no evidence of any pulmonary embolism and there was a tonic right-sided pleural effusion. The patient was ultimately stabilized. He was assumed to have a right lower lobe pneumonia which was treated. All of the cultures came back negative. He was extubated. His acute kidney injury recovered. He was discharged to medical [place] on a course of Levaquin Review of Systems ROS unobtainable: due to endotracheal tube Past Medical History Past Medical History: No Reported History Additional Past Medical History / Comment(s): Obesity, [facility] resident, depression, PTSD, schizophrenia paranoid type, COPD, chronic hypoxic and hypercapnic respiratory failure, hyperlipidemia, hypertension, recent hospitalization for acute respiratory failure requiring intubation mechanical ventilation History of Any Multi-Drug Resistant Organisms: None Reported Past Surgical History: No Surgical Hx Reported Additional Past Surgical History / Comment(s): patient refused to disclose Past Anesthesia/Blood Transfusion Reactions: No Reported Reaction Past Psychological History: PTSD Additional Psychological History / Comment(s): ER report indicated family member states there is a history of mental illness, but unsure what mental illness Smoking Status: Current some day smoker Past Alcohol Use History: None Reported Past Drug Use History: None Reported - Past Family History Father Family Medical History: Unable to Obtain Mother Family Medical History: Unable to Obtain Medications and Allergies Home Medications Medication Instructions Recorded Confirmed Type ARIPiprazole [Abilify] 30 mg PO DAILY 01/15/17 02/26/17 History Acetaminophen [Tylenol] 500 mg PO Q6H PRN 01/15/17 02/26/17 History Aspirin EC [Ecotrin Low Dose] 81 mg PO DAILY 01/15/17 02/26/17 History Atorvastatin [Lipitor] 20 mg PO HS 01/15/17 02/26/17 History Benztropine Mesylate [Cogentin] 2 mg PO HS 01/15/17 02/26/17 History Furosemide [Lasix] 40 mg PO DAILY 01/15/17 02/26/17 History Lisinopril [Zestril] 10 mg PO DAILY 01/15/17 02/26/17 History Naproxen [Naprosyn] 500 mg PO BID 01/15/17 02/26/17 History lamoTRIgine [LaMICtal] 100 mg PO BID 01/15/17 02/26/17 History traZODone HCL 100 mg PO HS 01/15/17 02/26/17 History Ferrous Sulfate [Feosol] 325 mg PO TID 02/26/17 02/26/17 History Allergies Allergy/AdvReac Type Severity Reaction Status Date / Time No Known Allergies Allergy Verified 02/26/17 19:38 Physical Exam Vitals: Vital Signs Temp Pulse Pulse Resp BP BP Pulse Ox 02/27/17 12:00 96.9 F L 108 H 20 160/70 94 L 02/27/17 11:44 112 H 02/27/17 11:35 108 H 02/27/17 08:00 97.6 F 108 H 20 117/58 93 L 02/27/17 04:35 97.5 F L 114 H 20 113/56 90 L 02/27/17 03:50 92 L 02/27/17 03:40 97.6 F 103 H 24 132/67 91 L 02/27/17 01:14 104 H 20 108/62 92 L 02/27/17 00:50 96.3 F L 107 H 24 138/67 92 L 02/27/17 00:07 99 F 102 H 24 107/62 92 L 02/26/17 22:30 99.9 F H 106 H 20 100/47 91 L 02/26/17 22:00 116 H 20 113/56 90 L 02/26/17 20:56 110 H 22 110/56 92 L 02/26/17 19:59 111 H 20 119/60 91 L 02/26/17 19:35 107 H 20 129/63 90 L 02/26/17 19:20 105 H 20 107/55 91 L 02/26/17 19:05 114 H 22 110/59 88 L 02/26/17 18:55 116 H 22 75/47 79 L 02/26/17 18:46 98.3 F 54 L 18 83/44 94 L Intake and Output 02/27/17 02/27/17 02/27/17 06:59 14:59 22:59 Intake Total 180 Output Total 475 Balance -475 180 Intake: Oral 180 Output: Urine 475 Other: # Voids 1 Weight 119 kg Head exam was generally normal. There was no scleral icterus or corneal arcus. Mucous membranes were moist. Neck is short and supple and the patient has significant crowding of the posterior oropharynx. Very poor dental condition and multiple decayed teeth. The patient has significant crowding of the posterior oropharynx and there is a Mallampati class IV. No thrush. Neck is supple. Lung sounds are diminished bilaterally along with some scattered rhonchi and scattered expiratory wheezes. Breath sounds are significantly diminished in the right lung base. Heart sounds are regular, normal S1-S2, no cervical murmurs appreciated.Abdominal exam revealed normal bowel sounds. The abdomen was soft, non-tender, and without masses, organomegaly, or appreciable enlargement of the abdominal aorta. Extremities reveal trace edema and there is no cyanosis or clubbing at this point. Pulses are diminished at the present. No skin mottling. No cyanosis or clubbing. Neurologically, the patient was quite obtunded and subsequently was intubated. At this point in time orogastric and tracheal tube are both in place. Results - Laboratory Findings CBC and BMP: 02/27/17 12:01 02/27/17 12:01 ABG ABG pH 7.41 (7.35-7.45) 02/26/17 19:30 ABG pCO2 55 mmHg (35-45) H 02/26/17 19:30 ABG pO2 69 mmHg (83-108) L 02/26/17 19:30 ABG O2 Saturation 93.0 % (94-97) L 02/26/17 19:30 PT/INR, D-dimer PT 11.5 sec (9.0-12.0) 02/26/17 19:05 INR 1.1 (<1.2) 02/26/17 19:05 D-Dimer 4.65 mg/L FEU (<0.60) H 02/26/17 19:05 Abnormal lab findings: Abnormal Labs 02/26/17 02/26/17 02/26/17 19:05 19:05 19:05 WBC 28.5 H* Hgb 12.9 L MCHC RDW 17.0 H Neutrophils # 26.7 H Lymphocytes # 0.7 L D-Dimer 4.65 H ABG pCO2 ABG pO2 ABG HCO3 ABG Total CO2 ABG O2 Saturation Potassium Chloride Carbon Dioxide BUN Creatinine Glucose POC Glucose (mg/dL) Plasma Lactic Acid Ezequiel Calcium Alkaline Phosphatase Total Creatine Kinase 39 L Troponin I 0.210 H* Total Protein Albumin Urine Protein Urine Blood Ur Leukocyte Esterase Urine RBC Urine WBC Urine WBC Clumps Urine Bacteria Hyaline Casts 02/26/17 02/26/17 02/26/17 19:05 19:05 19:30 WBC Hgb MCHC RDW Neutrophils # Lymphocytes # D-Dimer ABG pCO2 55 H ABG pO2 69 L ABG HCO3 35 H ABG Total CO2 36 H ABG O2 Saturation 93.0 L Potassium Chloride 93 L Carbon Dioxide 34 H BUN 55 H Creatinine 3.50 H Glucose 123 H POC Glucose (mg/dL) Plasma Lactic Acid Ezequiel 2.4 H* Calcium Alkaline Phosphatase 136 H Total Creatine Kinase Troponin I Total Protein 6.0 L Albumin 3.1 L Urine Protein Urine Blood Ur Leukocyte Esterase Urine RBC Urine WBC Urine WBC Clumps Urine Bacteria Hyaline Casts 02/26/17 02/27/17 02/27/17 22:35 06:21 12:01 WBC 22.9 H Hgb 11.9 L MCHC 29.0 L RDW 16.8 H Neutrophils # 22.0 H Lymphocytes # 0.3 L D-Dimer ABG pCO2 ABG pO2 ABG HCO3 ABG Total CO2 ABG O2 Saturation Potassium Chloride Carbon Dioxide BUN Creatinine Glucose POC Glucose (mg/dL) 134 H Plasma Lactic Acid Ezequiel Calcium Alkaline Phosphatase Total Creatine Kinase Troponin I Total Protein Albumin Urine Protein 2+ H Urine Blood Moderate H Ur Leukocyte Esterase Large H Urine RBC 19 H Urine WBC >182 H Urine WBC Clumps Occasional H Urine Bacteria Many H Hyaline Casts 4 H 02/27/17 02/27/17 02/27/17 12:01 13:24 14:11 WBC Hgb MCHC RDW Neutrophils # Lymphocytes # D-Dimer ABG pCO2 ABG pO2 ABG HCO3 ABG Total CO2 ABG O2 Saturation Potassium 5.5 H Chloride Carbon Dioxide BUN 63 H Creatinine 3.81 H Glucose 111 H POC Glucose (mg/dL) 143 H 138 H Plasma Lactic Acid Ezequiel Calcium 7.2 L Alkaline Phosphatase Total Creatine Kinase Troponin I Total Protein Albumin Urine Protein Urine Blood Ur Leukocyte Esterase Urine RBC Urine WBC Urine WBC Clumps Urine Bacteria Hyaline Casts - Diagnostic Findings Chest x-ray: image reviewed Assessment and Plan Plan: Assessment 1 septic shock likely of a urinary source. The patient is profoundly hypotensive, pressor dependent and in a shock state. Urine cultures and blood cultures still pending he had there is a limited to blood culture that showing gram-negative bacilli. This is likely a gram-negative septicemia/sepsis secondary to a underlying urine checked infection. 2 shock secondary to above. This is septic shock. 3 acute unresponsiveness secondary to sepsis. Currently the patient intubated on a mechanical ventilator 4 acute respiratory failure secondary to above. Currently intubated on mechanical ventilator 5 chronic right-sided pleural effusion small to moderate in size 6 Obesity 7 acute kidney injury 8 chronic psychiatric disorder and the patient has been maintained on multiple psychotropic medication including Abilify, trazodone, Cogentin and Lamictal on outpatient basis. He has underlying PTSD/bipolar disorder/depression 9 COPD 10 [facility] resident 11 hypertension 12 hyperlipidemia 13 chronic smoker 14 preserved LV function based on recent echocardiogram with an ejection fraction of 40% Plan Suggest continuing the IV fluids. The patient will be given at least 3 L of bolus and maintained on 150 mL of normal saline. Continue IV Zosyn. And Levaquin for now . The patient is gram-negative septicemia and final cultures and sensitivities are still pending. The patient intubated. Postintubation chest x-ray and blood gases will be obtained. We'll put the patient on DuoNeb neb last treatment [id number]. We will insert a triple lumen catheter. We'll insert an art line catheter. Proceed with obtaining getting cultures and blood cultures and sputum cultures. Lovenox for DVT prophylaxis. IV Protonix for GI prophylaxis. Stop Lasix. Insulin sliding scale coverage for blood sugar control. Stop Zestril. Diprivan drip for sedation. We'll continue to follow. Condition is critical. Time with Patient: Greater than 30
--- NOTE | 2017-02-27 15:33 | XR ---
EXAMINATION TYPE: XR chest 1V portable DATE OF EXAM: 02/27/2017 CLINICAL HISTORY: Difficulty breathing had to be intubated. Central line placement. TECHNIQUE: Single AP portable supine view of the chest is obtained. COMPARISON: Chest x-ray from one day earlier FINDINGS: There is new left subclavian central venous catheter with tip in the SVC. There is new end otracheal tube with tip at superior knob level, approximately 3 to 4 cm above the deepak. There is persistent cardiomegaly. There is persistent small right pleural effusion with associated ri ght lower lung atelectasis and/or infiltrate. Sheila B lines in the left periphery suggest mild inter stitial edema. There is less prominent patchy left basilar atelectasis and/or infiltrate redemonstrat ed. Multilevel spurring in the spine is again seen. No sizable pneumothorax is present. Increased pat ient rotation to the right is noted on current study. IMPRESSION: 1. New endotracheal tube is satisfactory in position. 2. New left subclavian central venous catheter with tip in SVC, no evidence of sizable pneumothorax a fter catheter placement. 3. Other findings stable as there is cardiomegaly with central vascular congestion as well as mild in terstitial edema and small right pleural effusion suggesting CHF exacerbation. In addition there is r ight greater than left lower lung atelectasis and/or infiltrate redemonstrated.
[2017-02-27] MEDS: SODIUM CHLORIDE 0.9% 1,000 ML IV SCH ×3 (15:56→16:29)
[2017-02-27] MEDS: PROPOFOL 1,000 MG/100 ML VIAL IV SCH (15:57)
[2017-02-27 16:12] LABS: ABG Base Excess -0.5 mmol/L; ABG HCO3 26 mmol/L (21-25); ABG PCO2 57 mmHg (35-45); ABG PH 7.27 (7.35-7.45); ABG PO2 393 mmHg (83-108); ABG TCO2 27 mmol/L (19-24)
--- NOTE | 2017-02-27 17:12 | XR ---
EXAMINATION TYPE: XR chest 1V portable DATE OF EXAM: 02/27/2017 COMPARISON: The HISTORY: NG tube placement TECHNIQUE: Single frontal view of the chest is obtained. FINDINGS: Endotracheal tube is in good position. There is a nasogastric tube with the tip below the diaphragm. There is a moderate right pleural effusion. There is probably congestive heart failure. Th ere are chest leads. There is left subclavian catheter with tip in superior vena cava. There is no pn eumothorax. IMPRESSION: NG tube appears in good position. Heart failure with right pleural effusion.
[2017-02-27 17:38] LABS: Magnesium 1.7 mg/dL (1.6-2.3); Phosphorous 6.2 mg/dL (2.5-4.5)
[2017-02-27] MEDS: ENOXAPARIN 40 MG/0.4 ML SYRINGE SQ SCH (19:35)
[2017-02-27 19:37] LABS: Glucose,Whole Blood 128 mg/dL (75-99)
[2017-02-27] MEDS: ATORVASTATIN 20 MG TAB PO SCH (20:42)
[2017-02-27] MEDS: BENZTROPINE MESYLATE 1 MG TAB PO SCH (20:42)
[2017-02-27] MEDS: CHLORHEXIDINE GLUCONATE 15 ML CUP MUCOUS MEM SCH (20:43)
[2017-02-27] MEDS ORDERED: LEVOFLOXACIN 750MG-D5W PMX 750 MG in DEXTROSE/WATER 1 150ML.BAG IVPB SCH (21:00)
[2017-02-27] MEDS ORDERED: FAMOTIDINE 20 MG TAB PO SCH (21:00)
[2017-02-27] MEDS: PIPERACILLIN-TAZOBACTAM 3.375 GM in DEXTROSE/WATER 1 50ML.BAG IVPB SCH (21:22)
[2017-02-27] MEDS: traZODone HCL 100 MG TAB PO SCH (22:10)
[2017-02-28 00:07] LABS: Glucose,Whole Blood 129 mg/dL (75-99)
[2017-02-28] MEDS: PROPOFOL 1,000 MG/100 ML VIAL IV SCH ×5 (00:10→18:06)
[2017-02-28 00:54] LABS: Glucose,Whole Blood 125 mg/dL (75-99)
[2017-02-28] MEDS: INSULIN LISPRO (humaLOG) 300 UNIT/3 ML VIAL SQ SCH ×4 (01:22→18:07)
[2017-02-28] MEDS: HYDROCORTISONE SUCCINATE 100 MG/2 ML VIAL IV SCH ×3 (03:26→18:06)
[2017-02-28 04:59] LABS: Anisocytosis Slight; Basophils % (A) 0 %; CH 25.5; CHCM 29.5; Eosinophils # (A) 0.1 k/uL (0-0.7); Eosinophils % (A) 0 %; HCT 38.4 % (39.0-53.0); HDW 3.08; HGB 11.4 gm/dL (13.0-17.5); Hypochromasia Marked; Luc % (Auto) 1; Lymphocytes # (A) 0.5 k/uL (1.0-4.8); Lymphocytes % (A) 2 %; MCH 25.8 pg (25.0-35.0); MCHC 29.7 g/dL (31.0-37.0); MCV 86.7 fL (80.0-100.0); Monocytes # (A) 0.5 k/uL (0-1.0); Monocytes % (A) 2 %; Neutrophils # (A) 19.2 k/uL (1.3-7.7); Neutrophils % (A) 94 %; RBC 4.44 m/uL (4.30-5.90); RDW 17.6 % (11.5-15.5); WBC 20.5 k/uL (3.8-10.6); WBC (Perox) 20.44
[2017-02-28 05:07] LABS: Calcium 7.2 mg/dL (8.4-10.2); Magnesium 1.7 mg/dL (1.6-2.3); Phosphorous 4.2 mg/dL (2.5-4.5); Potassium 5.2 mmol/L (3.5-5.1)
[2017-02-28 05:34] LABS: ABG Base Excess -1.7 mmol/L; ABG HCO3 23 mmol/L (21-25); ABG PCO2 40 mmHg (35-45); ABG PH 7.37 (7.35-7.45); ABG PO2 115 mmHg (83-108); ABG TCO2 24 mmol/L (19-24)
[2017-02-28] MEDS ORDERED: VANCOMYCIN 1,750 MG in SODIUM CHLORIDE 0.9% 250 ML IVPB ONE (06:00)
[2017-02-28 06:17] LABS: Glucose,Whole Blood 125 mg/dL (75-99)
--- NOTE | 2017-02-28 07:30 | XR ---
EXAMINATION TYPE: XR chest 1V portable DATE OF EXAM: 02/28/2017 Comparison: 02/27/2017 Clinical History: 71-year-old male Tube placement Findings: ET tube is satisfactory. NG tube courses below the diaphragm. Left subclavian CVC tip seen to the lev el of the upper to mid SVC. The heart is mildly enlarged. Interstitial prominence with small right greater than left pleural effu sions. There is continued right basilar opacity. Impression: 1. Overall stable findings; correlate for mild to moderate CHF. 2. Small right greater left pleural effusions with prominent adjacent atelectasis and/or consolidatio n at the right lower lung.
[2017-02-28] MEDS: CHLORHEXIDINE GLUCONATE 15 ML CUP MUCOUS MEM SCH ×2 (08:19→21:27)
[2017-02-28] MEDS: ENOXAPARIN 40 MG/0.4 ML SYRINGE SQ SCH (08:26)
[2017-02-28] MEDS: FUROSEMIDE 40 MG TAB PO SCH (08:26)
[2017-02-28] MEDS ORDERED: FAMOTIDINE 20 MG TAB PO SCH (09:00)
[2017-02-28] MEDS: PIPERACILLIN-TAZOBACTAM 3.375 GM in DEXTROSE/WATER 1 50ML.BAG IVPB SCH ×2 (09:01→21:28)
--- NOTE | 2017-02-28 11:30 | US ---
EXAMINATION TYPE: US abdomen comp/pelvis limited DATE OF EXAM: 02/28/2017 COMPARISON: NONE CLINICAL HISTORY: 71-year-old male with sepsis, UTI, obstruction. TECHNIQUE: Multiple sonographic images of the abdomen and pelvis were obtained. FINDINGS: BLOOD DONOR RECRUITER NOTES: Exam done portable in ICU, patient on vent, unable to obtain history. Patient unab le to cooperate for study, limited exam EXAM MEASUREMENTS: Liver Length: 17.2 cm CBD: 4.7 mm Spleen: 13.0 cm Right Kidney: 13.6 x 6.1 x 5.9 cm Left Kidney: 12.9 x 7.1 x 5.9 cm Pancreas: Suboptimal visualization of the pancreatic head and neck. Remainder appears grossly unrema rkable. Liver: Upper limits of normal in size. Mild perihepatic ascites is noted. Gallbladder: not identified on exam, unable to obtain history as to if patient still has gallbladder CBD: wnl Spleen: measures 13.0 cm Right Kidney: No hydronephrosis. 1.6 x 1.3 cm cortical cyst Left Kidney: not well visualized there is no obvious hydronephrosis. Upper IVC: wnl Abd Aorta: only upper portion seen, wnl Bladder: patient has catheter, suboptimally assessed. IMPRESSION: 1. Limited portable exam. Patient was unable to position for the study. 2. Mild perihepatic ascites. 3. Gallbladder cannot be visualized. Query any past history of cholecystectomy. 4. Bladder decompressed by Carrasco and not well assessed.
--- NOTE | 2017-02-28 11:51 | HP ---
DATE OF SERVICE: 02/27/2017 CHIEF COMPLAINT: Nausea, vomiting, diarrhea. HISTORY OF PRESENT ILLNESS: This 71-year-old gentleman with a past medical history of multiple medical problems, including obesity, history of depression, PTSD, paranoid schizophrenia, was recently admitted to [facility] with complaints of COPD, acute exacerbation, as well as right lower lobe pneumonia with possible sepsis. The patient was sent to an ECF. Currently the patient is readmitted with nausea, diarrhea. The patient is complaining of some change in mental status. Patient was found to have pneumonia and UTI with features of sepsis. The patient was admitted for further evaluation and treatment. After admission, the patient continues to be progressively stuporous, obtunded. Patient was found to be hypotensive. Patient went into acute respiratory failure and was given IV fluid bolus and transferred to ICU and mechanically ventilated. He is monitored closely at this time. Currently the patient is unable to give a coherent history. Most of the history is taken from my discussion with staff as well as review of the chart. PAST MEDICAL HISTORY: 1. History of COPD. 2. Recent pneumonia. 3. History of chronic hypoxic respiratory failure. 4. PTSD. Medications prior to admission are reviewed and include: 1. Trazodone 100 mg p.o. at bedtime. 2. Lamictal 100 mg p.o. b.i.d. 3. Naprosyn 500 mg p.o. b.i.d. 4. Zestril 10 mg p.o. daily. 5. DuoNeb q.i.d. and p.r.n. 6. Lasix 40 mg p.o. daily. 7. Iron sulfate 325 mg p.o. t.i.d. 8. Valium 5 mg p.o. t.i.d. 9. Cogentin 2 mg p.o. at bedtime. 10. Lipitor 20 mg at bedtime. 11. Ecotrin 81 mg p.o. daily. 12. Tylenol 500 mg q.6 p.r.n. 13. Abilify 30 mg p.o. daily. ALLERGIES: NONE. Family history, social history and review of systems could not be taken because of the patient's mental status changes. History of smoker per chart and per family PHYSICAL EXAM: Patient is stuporous. Pulse is 108, blood pressure ntd, respiration 20, temperature 96.9, pulse ox 94% on 6 L, and subsequently the patient was mechanically intubated. HEENT: Conjunctivae normal. Oral mucosa moist. NECK: No jugular venous distention. No carotid bruit. No lymph node enlargement. CARDIOVASCULAR: S1, S2 muffled. No S3. No S4. RESPIRATORY: Breath sounds diminished at the bases. Bilateral scattered rhonchi and crackles. Expiratory wheezing also present. ABDOMEN: Soft, obese, non-tender. No mass palpable. LEGS: No edema. No swelling. NERVOUS SYSTEM: Higher functions as mentioned earlier. Moves all 4 limbs. No focal motor or sensory deficit. LYMPHATICS: No lymph node palpable in neck, axillae or groin. SKIN: No ulcer, rash, bleeding. LABS: WBC 20.9, hemoglobin 11.9. ABGs noted. ASSESSMENT: 1. Severe sepsis secondary to urinary tract infection and pneumonia, present on admission. 2. Acute respiratory failure secondary to sepsis. 3. Increased white count. 4. History of and continued ongoing nicotine dependence. 5. Acute renal failure, possibly prerenal renal failure. 6. History of chronic obstructive pulmonary disease. 7. History of recent pneumonia and sepsis. 8. History of depression. 9. Post-traumatic stress disorder. 10. History of schizophrenia. RECOMMENDATIONS AND DISCUSSION: I recommend to continue current medications, continue with symptomatic treatment. Otherwise, I would recommend continuing the mechanical ventilation. Consult Dr. Goldstein as well as Infectious Disease, Dr. Pearce. Continue to monitor. Broad-spectrum IV antibiotics. Vancomycin will be added to the current regimen. Obtain cultures. Patient is on IV Zosyn as well. The prognosis is guarded, which I discussed at length with the family, who understands and agrees. Further recommendations to follow. Once again, I have discussed at length with the family and staff. Further recommendations to follow. Cultures will be obtained. OMAR
[2017-02-28] MEDS: SODIUM CHLORIDE 0.9% 1,000 ML IV SCH ×3 (11:59→18:19)
[2017-02-28 12:06] LABS: Glucose,Whole Blood 115 mg/dL (75-99)
--- NOTE | 2017-02-28 13:30 | P.PN ---
Subjective A 71-year-old male patient who was admitted yesterday through the emergency department because of nausea, diminished oral intake, generalized weakness and lethargy. The patient apparently had dropped his oral intake and he was feeling progressively more weak. Denied having any chest pain. No cough or sputum production. No abdominal pain or abdominal distention. The patient was felt to be septic of a urinary source. His white cell count was elevated at 28.5 and the patient was also in acute kidney injury. Lactic acid was nonelevated. The patient's urinalysis was significant abnormal with significant number of white cell count and bacteria and the urine itself was quite dirty. The Carrasco catheter was inserted. The patient was started on a combination of vancomycin and Zosyn and he was admitted to the medical floor. This afternoon, the patient became hypotensive and diaphoretic. His blood pressure dropped down to the 50s systolic. At the same time the patient became tachycardic with a heart rate of 120. He was also becoming progressively more lethargic. He was on 6 L oxygen nasal cannula and his pulse ox was around 94%. The patient was brought into the intensive care unit. A triple lumen catheter was inserted. The patient was on IV fluids and pressors. For now the patient is already received 1-1/2 L of IV fluid in the form of normal saline. Levo fed was also initiated at 10 mics initially and currently it's at 30 mics. Urine output is diminished at this point. The patient was subsequently intubated as the patient did not he felt to be awake enough to protect his airway and he be has becoming progressively more hypoxic. I intubated this patient and put him on a mechanical ventilator on assist control mode at the rate of 24, tidal volume 500, PEEP of 5 and FiO2 100%. The patient will have a blood gases and chest x-ray done and these are still pending for now. The patient is known to me. Of taking care of him during a recent bout of sepsis and respiratory failure. The patient came into the ICU last month unresponsive and he was and CO2 narcosis. He was also in acute respiratory failure. He was a shock on pressors. Echocardiogram back then showed an ejection fraction of 40-45% with secondary pulmonary hypertension. CT angios the chest showed no evidence of any pulmonary embolism and there was a tonic right-sided pleural effusion. The patient was ultimately stabilized. He was assumed to have a right lower lobe pneumonia which was treated. All of the cultures came back negative. He was extubated. His acute kidney injury recovered. He was discharged to [facility] on a course of Levaquin On 02/28/2017 the patient is being seen in a follow-up. As mentioned earlier, the patient has gone into respiratory failure due to a complicated urinary tract infection septic shock. He was also intubated and placed on a mechanical ventilator. This morning, his FiO2 is down to 40% with a PEEP of 5 and he has a tidal volume of 500 with a rate of 24. His chest x-ray shows a chronic right- sided pleural effusion and the ET tube is in a good location and the patient has a left subclavian triple-lumen catheter in place. Also, the blood gas shows a pH of 7.37 with a pCO2 of 40 and pO2 of 115. Hemodynamically, the patient has been adequately resuscitated IV fluids. The patient is currently off pressors. White cell count is down to 20.5. The patient has gram-negative bacilli in his blood. ID is on the case. He is a currently on a combination of Zosyn and Levaquin. Vancomycin was discontinued. The patient is producing adequate amount of urine output. He is still in acute kidney injury yet his is nonoliguric. He is producing adequate amount of urine output. Blood sugars under good control. We'll start low-grade/rate tube feeds on him today. I discussed the case with his brother the bedside Objective - Vital Signs Vital signs: Vital Signs Temp 98.6 F 02/28/17 12:00 Pulse 68 02/28/17 12:00 Resp 4 L 02/28/17 12:00 BP 111/61 02/27/17 15:45 Pulse Ox 98 02/28/17 12:00 Intake & Output 02/27/17 02/28/17 02/28/17 18:59 06:59 18:59 Intake Total 628.294 8290.001 801.267 Output Total 160 560 345 Balance 291.279 1425.001 456.267 Intake: IV 500 4500 500 Sodium Chloride 0.9% 1, 500 1500 500 000 ml @ 125 mls/hr IV . Q8H [facility] Rx#:[id number] Sodium Chloride 0.9% 1, 3000 000 ml @ 999 mls/hr IV . Q1H1M [facility] Rx#:[id number] Intake, IV Titration 23.205 256.001 301.267 Amount Norepinephrin 16 mg-0.9% 90.908 5.938 Ns Pmx 16 mg In 250 ml @ Titrate IV .Q0M [facility] Rx#: [id number] Propofol 1,000 mg In 100 23.205 165.093 170.329 ml @ Titrate IV .Q0M [facility] Rx#:[id number] Sodium Chloride 0.9% 1, 125 000 ml @ 125 mls/hr IV . Q8H [facility] Rx#:[id number] Oral 180 Output: Urine 160 560 345 Other: Voiding Method Indwelling Catheter Indwelling Catheter Indwelling Catheter # Voids 1 # Emeses 1 1 ABP, PAP, CO, CI - Last Documented Arterial Blood Pressure 128/56 - Exam Head exam was generally normal. There was no scleral icterus or corneal arcus. Mucous membranes were moist. Neck is short and supple and the patient has significant crowding of the posterior oropharynx. Very poor dental condition and multiple decayed teeth. The patient has significant crowding of the posterior oropharynx and there is a Mallampati class IV. No thrush. Neck is supple. Lung sounds are diminished bilaterally along with some scattered rhonchi and scattered expiratory wheezes. Breath sounds are significantly diminished in the right lung base. Heart sounds are regular, normal S1-S2, no cervical murmurs appreciated.Abdominal exam revealed normal bowel sounds. The abdomen was soft, non-tender, and without masses, organomegaly, or appreciable enlargement of the abdominal aorta. Extremities reveal trace edema and there is no cyanosis or clubbing at this point. Pulses are diminished at the present. No skin mottling. No cyanosis or clubbing. Neurologically, the patient was quite obtunded and subsequently was intubated. At this point in time orogastric and tracheal tube are both in place. - Labs CBC & Chem 7: 02/28/17 04:50 02/28/17 04:50 Labs: Abnormal Lab Results - Last 24 Hours (Table) 02/27/17 02/27/17 02/27/17 Range/Units 12:01 13:24 14:11 WBC (3.8-10.6) k/uL Hgb (13.0-17.5) gm/dL Hct (39.0-53.0) % MCHC (31.0-37.0) g/dL RDW (11.5-15.5) % Neutrophils # (1.3-7.7) k/uL Lymphocytes # (1.0-4.8) k/uL ABG pH (7.35-7.45) ABG pCO2 (35-45) mmHg ABG pO2 (83-108) mmHg ABG HCO3 (21-25) mmol/L ABG Total CO2 (19-24) mmol/L ABG O2 Saturation (94-97) % Potassium (3.5-5.1) mmol/L Chloride (98-107) mmol/L BUN (9-20) mg/dL Creatinine (0.66-1.25) mg/dL Glucose (74-99) mg/dL POC Glucose (mg/dL) 143 H 138 H (75-99) mg/dL Calcium (8.4-10.2) mg/dL Phosphorus 6.2 H (2.5-4.5) mg/dL 02/27/17 02/27/17 02/28/17 Range/Units 16:01 19:36 00:05 WBC (3.8-10.6) k/uL Hgb (13.0-17.5) gm/dL Hct (39.0-53.0) % MCHC (31.0-37.0) g/dL RDW (11.5-15.5) % Neutrophils # (1.3-7.7) k/uL Lymphocytes # (1.0-4.8) k/uL ABG pH 7.27 L (7.35-7.45) ABG pCO2 57 H (35-45) mmHg ABG pO2 393 H (83-108) mmHg ABG HCO3 26 H (21-25) mmol/L ABG Total CO2 27 H (19-24) mmol/L ABG O2 Saturation 100.0 H (94-97) % Potassium (3.5-5.1) mmol/L Chloride (98-107) mmol/L BUN (9-20) mg/dL Creatinine (0.66-1.25) mg/dL Glucose (74-99) mg/dL POC Glucose (mg/dL) 128 H 129 H (75-99) mg/dL Calcium (8.4-10.2) mg/dL Phosphorus (2.5-4.5) mg/dL 02/28/17 02/28/17 02/28/17 Range/Units 00:53 04:42 04:50 WBC 20.5 H (3.8-10.6) k/uL Hgb 11.4 L (13.0-17.5) gm/dL Hct 38.4 L (39.0-53.0) % MCHC 29.7 L (31.0-37.0) g/dL RDW 17.6 H (11.5-15.5) % Neutrophils # 19.2 H (1.3-7.7) k/uL Lymphocytes # 0.5 L (1.0-4.8) k/uL ABG pH (7.35-7.45) ABG pCO2 (35-45) mmHg ABG pO2 115 H (83-108) mmHg ABG HCO3 (21-25) mmol/L ABG Total CO2 (19-24) mmol/L ABG O2 Saturation 98.0 H (94-97) % Potassium (3.5-5.1) mmol/L Chloride (98-107) mmol/L BUN (9-20) mg/dL Creatinine (0.66-1.25) mg/dL Glucose (74-99) mg/dL POC Glucose (mg/dL) 125 H (75-99) mg/dL Calcium (8.4-10.2) mg/dL Phosphorus (2.5-4.5) mg/dL 02/28/17 02/28/17 02/28/17 Range/Units 04:50 06:15 12:03 WBC (3.8-10.6) k/uL Hgb (13.0-17.5) gm/dL Hct (39.0-53.0) % MCHC (31.0-37.0) g/dL RDW (11.5-15.5) % Neutrophils # (1.3-7.7) k/uL Lymphocytes # (1.0-4.8) k/uL ABG pH (7.35-7.45) ABG pCO2 (35-45) mmHg ABG pO2 (83-108) mmHg ABG HCO3 (21-25) mmol/L ABG Total CO2 (19-24) mmol/L ABG O2 Saturation (94-97) % Potassium 5.2 H (3.5-5.1) mmol/L Chloride 108 H (98-107) mmol/L BUN 64 H (9-20) mg/dL Creatinine 3.58 H (0.66-1.25) mg/dL Glucose 114 H (74-99) mg/dL POC Glucose (mg/dL) 125 H 115 H (75-99) mg/dL Calcium 7.2 L (8.4-10.2) mg/dL Phosphorus (2.5-4.5) mg/dL Microbiology - Last 24 Hours (Table) 02/27/17 23:22 Sputum Culture - Preliminary Sputum 02/27/17 12:01 Blood Culture - Final Blood 02/26/17 19:05 Blood Culture Gram Stain - Preliminary Blood Blood Culture - Preliminary Gram Neg Bacilli 02/26/17 19:05 Blood Culture Gram Stain - Preliminary Blood Blood Culture - Preliminary Gram Neg Bacilli 02/26/17 19:05 Blood Culture - Final Blood 02/26/17 19:05 Blood Culture - Final Blood 02/26/17 22:35 Urine Culture - Preliminary Urine,Voided Assessment and Plan Plan: Assessment 1 septic shock secondary to a gram-negative urinary tract infection. The patient has been adequately resuscitated with IV fluids. The patient's blood pressure is normalized and currently is off pressors. He is on a combination of Zosyn and Levaquin. 2 shock secondary to above. This is septic shock. 3 gram-negative sepsis secondary to a urine checked infection 4 acute respiratory failure secondary to above. Currently intubated on mechanical ventilator 5 chronic right-sided pleural effusion small to moderate in size 6 Obesity 7 acute kidney injury 8 chronic psychiatric disorder and the patient has been maintained on multiple psychotropic medication including Abilify, trazodone, Cogentin and Lamictal on outpatient basis. He has underlying PTSD/bipolar disorder/depression 9 COPD 10 correction resident 11 hypertension 12 hyperlipidemia 13 chronic smoker 14 preserved LV function based on recent echocardiogram with an ejection fraction of 40% Plan Patient is not ready to wean yet. We'll continue mechanical ventilation for another 24 hours. Continue IV fluids. Monitor urine output. Anticipate some improvement in the renal function over the next 24 hours. Continue Zosyn and Levaquin and further adjustments in the antibiotic regimen will be done once the cultures and sensitivities are available. Meanwhile, we'll continue Zosyn and Levaquin. Vancomycin was discontinued. Initiate Jevity at 10 mL an hour of enteral feeding. Chest x-ray was reviewed. Less of the blood work was reviewed. Renal function remains impaired. We'll continue to follow make further recommendations based on his progress. The family was updated on his condition. The patient is improved and more stable compared to yesterday. He is off pressors. May consider extubation within next 24 hours. This is a critically care evaluation that was done and 35 minutes. Time with Patient: Greater than 30
--- NOTE | 2017-02-28 14:56 | PCN ---
TRIPLE LUMEN CATHETER PLACEMENT PREOPERATIVE DIAGNOSIS; Septic shock. POSTOPERATIVE DIAGNOSIS: Septic shock. Indication: Hemodynamic monitoring/Intravenous access. A time-out was completed verifying correct patient, procedure, site, positioning , and implant(s) or special equipment if applicable. The patient was placed in a dependent position appropriate for triple lumen catheter placement based on the vein to be cannulated. The patients left neck was prepped and draped in sterile fashion. 1% Lidocaine was used to anesthetize the surrounding skin area. A triple lumen 9F Cordis catheter was introduced into the subclavian vein using Seldinger technique. The catheter was threaded smoothly over the guide wire and appropriate blood return was obtained. Each lumen of the catheter was evacuated of air and flushed with sterile saline. The catheter was then sutured in place to the skin and a sterile dressing applied. Perfusion to the extremity distal to the point of catheter insertion was checked and found to be adequate. No bedside complication or bleeding. [facility]
--- NOTE | 2017-02-28 14:59 | PCN ---
ENDOTRACHEAL INTUBATION PREOPERATIVE DIAGNOSIS: Acute respiratory failure. POSTOPERATIVE DIAGNOSIS: Acute respiratory failure. Indication: Respiratory compromise. A time-out was completed verifying correct patient, procedure, site, positioning , and implant(s) or special equipment if applicable. The patient was positioned appropriately and a #4 Saunders blade to intubate this patient and patient was intubated by a #8 orotracheal tube was placed under direct laryngoscopy. The tube was anchored at 22 cm at the teeth. Correct placement was confirmed by presence of bilateral breath sounds without air sounds in the abdomen on auscultation. An end-tidal CO2 monitor was also used to confirm tracheal placement of the ET tube. A chest x-ray was ordered to assess for pneumothorax and verify endotracheal tube placement. The patient tolerated the procedure well and there were no bedside complications or bleeding. OMAR
--- NOTE | 2017-02-28 15:07 | PCN ---
DATE OF PROCEDURE; 02/27/2017 ARTERIAL LINE PLACEMENT Indication: Hemodynamic monitoring. A time-out was completed verifying correct patient, procedure, site, positioning , and implant(s) or special equipment if applicable. Allens test was performed to ensure adequate perfusion. The patients right wrist was prepped and draped in sterile fashion. 1% Lidocaine was used to anesthetize the area. An 18G Arrow arterial line was introduced into the radial artery. The catheter was threaded over the guide wire and the needle was removed with appropriate pulsatile blood return. Blood loss was minimal. The catheter was then sutured in place to the skin and a sterile dressing applied. Perfusion to the extremity distal to the point of catheter insertion was checked and found to be adequate. The patient tolerated the procedure well and there were no complications. OMAR
--- NOTE | 2017-02-28 15:40 | P.CONS ---
History of Present Illness - Reason for Consult Consult date: 02/28/17 - Chief Complaint Respiratory failure - History of Present Illness 71-year-old male who is known to the pulmonary service from his hospitalization last month which point in time he had a bout of respiratory failure requiring intubation and mechanical ventilation and antibiotic therapy. Eventually improved and was discharged to [facility]. Was treated with a course of antibiotics of levofloxacin. Currently was doing well until the patient in the last day before admission became considerably more week. He was not having significant other symptoms except his profound weakness. He Was Brought to the Emergency Center Where He Was Found Evidence an Extensive Leukocytosis. Within Hours of Admission He Became Worse. He Developed Significant Hypotension and Tachycardia. Because of This He Was Transferred to the Intensive Care Unit. He Became More Hypotensive despite Fluids and Required Vasopressor Therapy. Respiratory Failure Occurred and He Required Intubation and Sedation Mechanical Ventilation. Patient remains sedated and ventilated at this time. He is comfortable. Vasopressors have been diminished. But are still required. Infectious disease consultation is requested regarding his septic shock. Review of Systems ROS unobtainable: due to endotracheal tube Past Medical History Past Medical History: No Reported History Additional Past Medical History / Comment(s): Obesity, care home resident, depression, PTSD, schizophrenia paranoid type, COPD, chronic hypoxic and hypercapnic respiratory failure, hyperlipidemia, hypertension, recent hospitalization for acute respiratory failure requiring intubation mechanical ventilation History of Any Multi-Drug Resistant Organisms: None Reported Past Surgical History: No Surgical Hx Reported Additional Past Surgical History / Comment(s): patient refused to disclose Past Anesthesia/Blood Transfusion Reactions: No Reported Reaction Past Psychological History: PTSD Additional Psychological History / Comment(s): ER report indicated family member states there is a history of mental illness, but unsure what mental illness Smoking Status: Current some day smoker Past Alcohol Use History: None Reported Past Drug Use History: None Reported - Past Family History Father Family Medical History: Unable to Obtain Mother Family Medical History: Unable to Obtain Medications and Allergies Home Medications and Allergies Comment(s): Current Medications Atorvastatin Calcium (Lipitor) 20 mg PO HS [facility] Last Admin: 02/27/17 20:42 Dose: 20 mg Benztropine Mesylate (Cogentin) 2 mg PO HS [facility] Last Admin: 02/27/17 20:42 Dose: 2 mg Chlorhexidine Gluconate (Peridex) 15 ml MUCOUS MEM BID [facility] Last Admin: 02/28/17 08:19 Dose: 15 ml Enoxaparin Sodium (Lovenox) 40 mg SQ DAILY [facility] Last Admin: 02/28/17 08:26 Dose: 40 mg Furosemide (Lasix) 40 mg PO DAILY [facility] Last Admin: 02/28/17 08:26 Dose: 40 mg Hydrocortisone Sodium Succinate (Solu-Cortef) 100 mg IV Q8H [facility] Last Admin: 02/28/17 08:26 Dose: 100 mg Piperacillin/Tazobactam/ (Dextrose 3.375 gm/ IV Solution) 50 mls @ 12.5 mls/hr IVPB Q12HR [facility] Last Admin: 02/28/17 09:01 Dose: 12.5 mls/hr Norepinephrine Bitartrate (Levophed-0.9% Nacl 16 Mg/250ml Pmx) 16 mg in 250 mls @ 0 mls/hr IV .Q0M [facility]; Titrate PRN Reason: Protocol Last Titration: 02/28/17 08:30 Dose: 0 mcg/min, 0 mls/hr Propofol (Diprivan) 1,000 mg in 100 mls @ 0 mls/hr IV .Q0M [facility]; Titrate PRN Reason: Protocol Last Admin: 02/28/17 12:33 Dose: 25 mcg/kg/min, 17.85 mls/hr Sodium Chloride (Saline 0.9%) 1,000 mls @ 125 mls/hr IV .Q8H [facility] Last Admin: 02/28/17 11:59 Dose: 125 mls/hr Insulin Human Lispro (Humalog) 0 unit SQ Q6H [facility] PRN Reason: Protocol Last Admin: 02/28/17 12:04 Dose: Not Given Levofloxacin (Levaquin) 500 mg PO Q48H [facility] Miscellaneous Information (Pharmacy To Dose Iv Vancomycin) 1 each MISCELLANE DIRECTED PRN PRN Reason: Per Protocol Naloxone HCl (Narcan) 0.2 mg IV Q2M PRN PRN Reason: Opioid Reversal Trazodone HCl (Desyrel) 100 mg PO HS [facility] Last Admin: 02/27/17 22:10 Dose: Not Given Home Medications Medication Instructions Recorded Confirmed Type ARIPiprazole [Abilify] 30 mg PO DAILY 01/15/17 02/26/17 History Acetaminophen [Tylenol] 500 mg PO Q6H PRN 01/15/17 02/26/17 History Aspirin EC [Ecotrin Low Dose] 81 mg PO DAILY 01/15/17 02/26/17 History Atorvastatin [Lipitor] 20 mg PO HS 01/15/17 02/26/17 History Benztropine Mesylate [Cogentin] 2 mg PO HS 01/15/17 02/26/17 History Furosemide [Lasix] 40 mg PO DAILY 01/15/17 02/26/17 History Lisinopril [Zestril] 10 mg PO DAILY 01/15/17 02/26/17 History Naproxen [Naprosyn] 500 mg PO BID 01/15/17 02/26/17 History lamoTRIgine [LaMICtal] 100 mg PO BID 01/15/17 02/26/17 History traZODone HCL 100 mg PO HS 01/15/17 02/26/17 History Ferrous Sulfate [Feosol] 325 mg PO TID 02/26/17 02/26/17 History Allergies Allergy/AdvReac Type Severity Reaction Status Date / Time No Known Allergies Allergy Verified 02/26/17 19:38 Physical Exam Vitals: Vital Signs Temp Pulse Resp BP Pulse Ox 02/28/17 15:00 74 3 L 99 02/28/17 14:30 66 0 L 99 02/28/17 14:00 64 24 98 02/28/17 13:30 66 20 98 02/28/17 13:00 67 25 H 98 02/28/17 12:30 69 3 L 97 02/28/17 12:00 98.6 F 68 4 L 98 02/28/17 11:30 72 0 L 96 02/28/17 11:00 77 0 L 96 02/28/17 10:30 77 4 L 97 02/28/17 10:00 72 0 L 97 02/28/17 09:30 67 0 L 96 02/28/17 09:00 73 0 L 96 02/28/17 08:30 68 25 H 98 02/28/17 08:00 97.7 F 66 24 98 02/28/17 07:30 69 0 L 98 02/28/17 07:00 69 0 L 98 02/28/17 06:30 70 23 98 02/28/17 06:00 75 25 H 96 02/28/17 05:30 73 23 94 L 02/28/17 05:00 73 23 94 L 02/28/17 04:30 69 24 94 L 02/28/17 04:00 71 24 97 02/28/17 03:30 66 20 99 02/28/17 03:00 67 7 L 99 02/28/17 02:30 70 0 L 99 02/28/17 02:00 68 0 L 98 02/28/17 01:30 71 24 97 02/28/17 01:00 98.4 F 72 24 98 02/28/17 00:30 72 31 H 99 02/28/17 00:00 70 24 99 02/27/17 23:30 71 13 100 02/27/17 23:00 69 4 L 100 02/27/17 22:30 67 6 L 100 02/27/17 22:09 70 5 L 100 02/27/17 22:00 73 5 L 100 02/27/17 21:45 70 4 L 100 02/27/17 21:30 70 4 L 100 02/27/17 21:15 70 4 L 100 02/27/17 21:00 70 0 L 100 02/27/17 20:45 68 4 L 100 02/27/17 20:30 68 4 L 100 02/27/17 20:15 97.9 F 71 23 100 02/27/17 20:00 72 25 H 100 02/27/17 19:45 74 24 99 02/27/17 19:30 71 29 H 99 02/27/17 18:00 78 24 02/27/17 17:45 74 24 99 02/27/17 17:30 73 24 99 02/27/17 17:15 73 24 98 02/27/17 17:00 80 28 H 99 02/27/17 16:45 94 24 99 02/27/17 16:30 79 24 98 02/27/17 16:15 76 28 H 99 02/27/17 16:00 97.2 F L 81 26 H 100 02/27/17 15:45 97 25 H 111/61 100 02/27/17 15:30 84 27 H 136/50 99 Intake and Output 02/28/17 02/28/17 02/28/17 06:59 14:59 22:59 Intake Total 5569.796 4531.267 Output Total 420 520 Balance 723.425 656.267 Intake: IV 1000 875 Sodium Chloride 0.9% 1, 1000 875 000 ml @ 125 mls/hr IV . Q8H [facility] Rx#:[id number] Intake, IV Titration 143.425 301.267 Amount Norepinephrin 16 mg-0.9% 55.127 5.938 Ns Pmx 16 mg In 250 ml @ Titrate IV .Q0M [facility] Rx#: [id number] Propofol 1,000 mg In 100 88.298 170.329 ml @ Titrate IV .Q0M [facility] Rx#:[id number] Sodium Chloride 0.9% 1, 125 000 ml @ 125 mls/hr IV . Q8H [facility] Rx#:[id number] Output: Urine 420 520 Other: Voiding Method Indwelling Catheter Indwelling Catheter # Emeses 1 Weight 119 kg Patient Weight 03/01/17 06:59 Weight 119 kg ABP, PAP, CO, CI - Last 8 Hours Arterial Blood Pressure 126/49 Arterial Blood Pressure 120/47 Arterial Blood Pressure 124/54 Arterial Blood Pressure 122/53 Arterial Blood Pressure 122/54 Arterial Blood Pressure 120/54 Arterial Blood Pressure 128/56 Arterial Blood Pressure 123/54 Arterial Blood Pressure 129/54 Arterial Blood Pressure 135/59 Arterial Blood Pressure 127/56 Arterial Blood Pressure 103/45 Arterial Blood Pressure 114/52 Arterial Blood Pressure 121/44 Arterial Blood Pressure 115/44 Arterial Blood Pressure 117/45 71-year-old male intubated sedated and mechanically ventilated HEENT: Anicteric conjunctiva are pink and moist nasal mucosa grossly intact without significant lesions, there is no thrush. Edentulous Neck: The neck is supple without significant lymphadenopathy or thyromegaly. Lungs: There are symmetrical air entry. Peyser crackles are heard. Expiratory wheezes. Heart: Regular rate and rhythm with an audible S1-S2, no S3 loud S4 There is no significant murmur click or rub, PMI was nondisplaced. Abdomen: Positive bowel sounds soft and nontender without palpable masses or organomegaly. There was no guarding or rebound. Extremities: The upper and fluctuance have mild generalized edema. Extremities are cool to touch. 7 ulcerations are seen. Neuro: Sedated and mechanically ventilated. Results CBC & Chem 7: 02/28/17 04:50 02/28/17 04:50 Labs: Abnormal Lab Results - Last 24 Hours (Table) 0802/27/17 02/27/17 Range/Units 12:01 16:01 19:36 WBC (3.8-10.6) k/uL Hgb (13.0-17.5) gm/dL Hct (39.0-53.0) % MCHC (31.0-37.0) g/dL RDW (11.5-15.5) % Neutrophils # (1.3-7.7) k/uL Lymphocytes # (1.0-4.8) k/uL ABG pH 7.27 L (7.35-7.45) ABG pCO2 57 H (35-45) mmHg ABG pO2 393 H (83-108) mmHg ABG HCO3 26 H (21-25) mmol/L ABG Total CO2 27 H (19-24) mmol/L ABG O2 Saturation 100.0 H (94-97) % Potassium (3.5-5.1) mmol/L Chloride (98-107) mmol/L BUN (9-20) mg/dL Creatinine (0.66-1.25) mg/dL Glucose (74-99) mg/dL POC Glucose (mg/dL) 128 H (75-99) mg/dL Calcium (8.4-10.2) mg/dL Phosphorus 6.2 H (2.5-4.5) mg/dL 02/28/17 02/28/17 02/28/17 Range/Units 00:05 00:53 04:42 WBC (3.8-10.6) k/uL Hgb (13.0-17.5) gm/dL Hct (39.0-53.0) % MCHC (31.0-37.0) g/dL RDW (11.5-15.5) % Neutrophils # (1.3-7.7) k/uL Lymphocytes # (1.0-4.8) k/uL ABG pH (7.35-7.45) ABG pCO2 (35-45) mmHg ABG pO2 115 H (83-108) mmHg ABG HCO3 (21-25) mmol/L ABG Total CO2 (19-24) mmol/L ABG O2 Saturation 98.0 H (94-97) % Potassium (3.5-5.1) mmol/L Chloride (98-107) mmol/L BUN (9-20) mg/dL Creatinine (0.66-1.25) mg/dL Glucose (74-99) mg/dL POC Glucose (mg/dL) 129 H 125 H (75-99) mg/dL Calcium (8.4-10.2) mg/dL Phosphorus (2.5-4.5) mg/dL 02/28/17 02/28/17 02/28/17 Range/Units 04:50 04:50 06:15 WBC 20.5 H (3.8-10.6) k/uL Hgb 11.4 L (13.0-17.5) gm/dL Hct 38.4 L (39.0-53.0) % MCHC 29.7 L (31.0-37.0) g/dL RDW 17.6 H (11.5-15.5) % Neutrophils # 19.2 H (1.3-7.7) k/uL Lymphocytes # 0.5 L (1.0-4.8) k/uL ABG pH (7.35-7.45) ABG pCO2 (35-45) mmHg ABG pO2 (83-108) mmHg ABG HCO3 (21-25) mmol/L ABG Total CO2 (19-24) mmol/L ABG O2 Saturation (94-97) % Potassium 5.2 H (3.5-5.1) mmol/L Chloride 108 H (98-107) mmol/L BUN 64 H (9-20) mg/dL Creatinine 3.58 H (0.66-1.25) mg/dL Glucose 114 H (74-99) mg/dL POC Glucose (mg/dL) 125 H (75-99) mg/dL Calcium 7.2 L (8.4-10.2) mg/dL Phosphorus (2.5-4.5) mg/dL 02/28/17 Range/Units 12:03 WBC (3.8-10.6) k/uL Hgb (13.0-17.5) gm/dL Hct (39.0-53.0) % MCHC (31.0-37.0) g/dL RDW (11.5-15.5) % Neutrophils # (1.3-7.7) k/uL Lymphocytes # (1.0-4.8) k/uL ABG pH (7.35-7.45) ABG pCO2 (35-45) mmHg ABG pO2 (83-108) mmHg ABG HCO3 (21-25) mmol/L ABG Total CO2 (19-24) mmol/L ABG O2 Saturation (94-97) % Potassium (3.5-5.1) mmol/L Chloride (98-107) mmol/L BUN (9-20) mg/dL Creatinine (0.66-1.25) mg/dL Glucose (74-99) mg/dL POC Glucose (mg/dL) 115 H (75-99) mg/dL Calcium (8.4-10.2) mg/dL Phosphorus (2.5-4.5) mg/dL Microbiology - Last 24 Hours (Table) 02/26/17 22:35 Urine Culture - Preliminary Urine,Voided Gram Neg Bacilli 02/27/17 23:22 Sputum Culture - Preliminary Sputum 02/27/17 12:01 Blood Culture - Final Blood 02/26/17 19:05 Blood Culture Gram Stain - Preliminary Blood Blood Culture - Preliminary Gram Neg Bacilli 02/26/17 19:05 Blood Culture Gram Stain - Preliminary Blood Blood Culture - Preliminary Gram Neg Bacilli Laboratory Results WBC 20.5 k/uL (3.8-10.6) H 02/28/17 04:50 RBC 4.44 m/uL (4.30-5.90) 02/28/17 04:50 Hgb 11.4 gm/dL (13.0-17.5) L 02/28/17 04:50 Hct 38.4 % (39.0-53.0) L 02/28/17 04:50 MCV 86.7 fL (80.0-100.0) 02/28/17 04:50 MCH 25.8 pg (25.0-35.0) 02/28/17 04:50 MCHC 29.7 g/dL (31.0-37.0) L 02/28/17 04:50 RDW 17.6 % (11.5-15.5) H 02/28/17 04:50 Plt Count 224 k/uL (150-450) 02/28/17 04:50 Neutrophils % 94 % 02/28/17 04:50 Lymphocytes % 2 % 02/28/17 04:50 Monocytes % 2 % 02/28/17 04:50 Eosinophils % 0 % 02/28/17 04:50 Basophils % 0 % 02/28/17 04:50 Neutrophils # 19.2 k/uL (1.3-7.7) H 02/28/17 04:50 Lymphocytes # 0.5 k/uL (1.0-4.8) L 02/28/17 04:50 Monocytes # 0.5 k/uL (0-1.0) 02/28/17 04:50 Eosinophils # 0.1 k/uL (0-0.7) 02/28/17 04:50 Basophils # 0.0 k/uL (0-0.2) 02/28/17 04:50 Hypochromasia Marked 02/28/17 04:50 Anisocytosis Slight 02/28/17 04:50 PT 11.5 sec (9.0-12.0) 02/26/17 19:05 INR 1.1 (<1.2) 02/26/17 19:05 APTT 27.0 sec (22.0-30.0) 02/26/17 19:05 D-Dimer 4.65 mg/L FEU (<0.60) H 02/26/17 19:05 Sample Site jose 02/28/17 04:42 ABG pH 7.37 (7.35-7.45) 02/28/17 04:42 ABG pCO2 40 mmHg (35-45) 02/28/17 04:42 ABG pO2 115 mmHg (83-108) H 02/28/17 04:42 ABG HCO3 23 mmol/L (21-25) 02/28/17 04:42 ABG Total CO2 24 mmol/L (19-24) 02/28/17 04:42 ABG O2 Saturation 98.0 % (94-97) H 02/28/17 04:42 ABG Base Excess -1.7 mmol/L 02/28/17 04:42 FiO2 40 % 02/28/17 04:42 Sodium 140 mmol/L (137-145) 02/28/17 04:50 Potassium 5.2 mmol/L (3.5-5.1) H 02/28/17 04:50 Chloride 108 mmol/L (98-107) H 02/28/17 04:50 Carbon Dioxide 23 mmol/L (22-30) 02/28/17 04:50 Anion Gap 9 mmol/L 02/28/17 04:50 BUN 64 mg/dL (9-20) H 02/28/17 04:50 Creatinine 3.58 mg/dL (0.66-1.25) H 02/28/17 04:50 Est GFR (MDRD) Af Amer 20 (>60 ml/min/1.73 sqM) 02/28/17 04:50 Est GFR (MDRD) Non-Af 17 (>60 ml/min/1.73 sqM) 02/28/17 04:50 Glucose 114 mg/dL (74-99) H 02/28/17 04:50 POC Glucose (mg/dL) 115 mg/dL (75-99) H 02/28/17 12:03 POC Glu Resource Management Specialist ID Andre Grider 02/28/17 12:03 Lactic Ac Sepsis Rflx Y 02/26/17 19:53 Plasma Lactic Acid Ezequiel 1.1 mmol/L (0.7-2.0) 02/27/17 17:06 Calcium 7.2 mg/dL (8.4-10.2) L 02/28/17 04:50 Phosphorus 4.2 mg/dL (2.5-4.5) 02/28/17 04:50 Magnesium 1.7 mg/dL (1.6-2.3) 02/28/17 04:50 Total Bilirubin 1.1 mg/dL (0.2-1.3) 02/26/17 19:05 AST 29 U/L (17-59) 02/26/17 19:05 ALT 28 U/L (21-72) 02/26/17 19:05 Alkaline Phosphatase 136 U/L (38-126) H 02/26/17 19:05 Total Creatine Kinase 39 U/L (55-170) L 02/26/17 19:05 CK-MB (CK-2) 0.6 ng/mL (0.0-2.4) 02/26/17 19:05 CK-MB (CK-2) Rel Index 1.5 02/26/17 19:05 Troponin I 0.210 ng/mL (0.000-0.034) H* 02/26/17 19:05 NT-Pro-B Natriuret Pep 49551 pg/mL 02/26/17 19:05 Total Protein 6.0 g/dL (6.3-8.2) L 02/26/17 19:05 Albumin 3.1 g/dL (3.5-5.0) L 02/26/17 19:05 Urine Color Yellow 02/26/17 22:35 Urine Appearance Turbid (Clear) 02/26/17 22:35 Urine pH 5.5 (5.0-8.0) 02/26/17 22:35 Ur Specific [place] 1.015 (1.001-1.035) 02/26/17 22:35 Urine Protein 2+ (Negative) H 02/26/17 22:35 Urine Glucose (UA) Negative (Negative) 02/26/17 22:35 Urine Ketones Negative (Negative) 02/26/17 22:35 Urine Blood Moderate (Negative) H 02/26/17 22:35 Urine Nitrite Negative (Negative) 02/26/17 22:35 Urine Bilirubin Negative (Negative) 02/26/17 22:35 Urine Urobilinogen <2.0 mg/dL (<2.0) 02/26/17 22:35 Ur Leukocyte Esterase Large (Negative) H 02/26/17 22:35 Urine RBC 19 /hpf (0-5) H 02/26/17 22:35 Urine WBC >182 /hpf (0-5) H 02/26/17 22:35 Urine WBC Clumps Occasional /hpf (None) H 02/26/17 22:35 Ur Squamous Epith Cells 1 /hpf (0-4) 02/26/17 22:35 Urine Bacteria Many /hpf (None) H 02/26/17 22:35 Hyaline Casts 4 /lpf (0-2) H 02/26/17 22:35 Granular Casts 6 /lpf (0) 02/26/17 22:35 Gastric Occult Blood Positive (Negative) 02/26/17 21:59 Microbiology 02/26/17 22:35 Urine,Voided Urine Culture - Preliminary Gram Neg Bacilli 02/27/17 23:22 Sputum Sputum Culture - Preliminary 02/27/17 12:01 Blood Blood Culture - Final 02/26/17 19:05 Blood Blood Culture Gram Stain - Preliminary 02/26/17 19:05 Blood Blood Culture - Preliminary Gram Neg Bacilli 02/26/17 19:05 Blood Blood Culture Gram Stain - Preliminary 02/26/17 19:05 Blood Blood Culture - Preliminary Gram Neg Bacilli 02/26/17 19:05 Blood Blood Culture - Final 02/26/17 19:05 Blood Blood Culture - Final Assessment and Plan (1) Septic shock Narrative/Plan: 71-year-old male presents to hospital with increasing weakness. Shortly after admission became profoundly more ill. He became hypotensive and developed respiratory failure. He required intubation and mechanical ventilation. He remains ventilated at this time. Concerns underlying pneumonia as etiology of his current gram-negative sepsis. Follow cultures are in process and await the final identification. Fortunately there is been some improvement in that his leukocytosis is improved from 28 to 20.Also has had less vasopressor therapy needs. He however does have a acute renal failure his creatinine is at 3.58 and it was 1.04 during his last stay. Antibiotic therapy continues. With gram negatives only being isolated vancomycin is discontinued. Await final culture to determine final course of antibiotic therapy. Follow blood cultures requested given the multiple positive so far. Patient did have a VQ scan performed at admission that was a low probability of pulmonary embolism. However right lower lobe pneumonia is noted. Status: Acute (2) Pneumonia Status: Acute
[2017-02-28 18:04] LABS: Glucose,Whole Blood 113 mg/dL (75-99)
[2017-02-28] MEDS ORDERED: LEVOFLOXACIN 500 MG TAB PO SCH (21:00)
[2017-02-28] MEDS: traZODone HCL 100 MG TAB PO SCH (21:27)
[2017-02-28] MEDS: BENZTROPINE MESYLATE 1 MG TAB PO SCH (21:27)
[2017-02-28] MEDS: ATORVASTATIN 20 MG TAB PO SCH (21:28)
[2017-02-28 23:46] LABS: Potassium 4.5 mmol/L (3.5-5.1)
[2017-03-01 00:16] LABS: Glucose,Whole Blood 116 mg/dL (75-99)
[2017-03-01] MEDS: INSULIN LISPRO (humaLOG) 300 UNIT/3 ML VIAL SQ SCH ×4 (01:30→18:03)
[2017-03-01] MEDS: HYDROCORTISONE SUCCINATE 100 MG/2 ML VIAL IV SCH ×2 (01:35→08:19)
[2017-03-01] MEDS: SODIUM CHLORIDE 0.9% 1,000 ML IV SCH ×5 (01:35→20:50)
[2017-03-01] MEDS: PROPOFOL 1,000 MG/100 ML VIAL IV SCH ×4 (01:39→18:27)
[2017-03-01 04:54] LABS: Anisocytosis Slight; Basophils % (A) 0 %; CH 24.9; CHCM 29.9; Eosinophils % (A) 0 %; HCT 37.6 % (39.0-53.0); HDW 3.07; HGB 11.3 gm/dL (13.0-17.5); Hypochromasia Marked; Luc # (Auto) 0.19; Luc % (Auto) 1; Lymphocytes # (A) 0.7 k/uL (1.0-4.8); Lymphocytes % (A) 4 %; MCH 25.1 pg (25.0-35.0); MCV 83.7 fL (80.0-100.0); Mean Platelet Volume 9.3; Monocytes # (A) 0.5 k/uL (0-1.0); Monocytes % (A) 3 %; Neutrophils # (A) 17.1 k/uL (1.3-7.7); Neutrophils % (A) 92 %; RDW 17.1 % (11.5-15.5); WBC 18.5 k/uL (3.8-10.6); WBC (Perox) 18.27
[2017-03-01 05:11] LABS: ABG PH 7.42 (7.35-7.45)
[2017-03-01 05:12] LABS: ABG Base Excess -1.8 mmol/L; ABG HCO3 22 mmol/L (21-25); ABG PCO2 34 mmHg (35-45); ABG PO2 89 mmHg (83-108); ABG TCO2 23 mmol/L (19-24)
[2017-03-01 05:22] LABS: Calcium 7.9 mg/dL (8.4-10.2); Magnesium 2.1 mg/dL (1.6-2.3); Phosphorous 4.4 mg/dL (2.5-4.5); Potassium 4.4 mmol/L (3.5-5.1)
--- NOTE | 2017-03-01 08:15 | XR ---
EXAMINATION TYPE: XR chest 1V portable DATE OF EXAM: 03/01/2017 Comparison: 02/28/2017 Clinical History: 71-year-old male Tube placement Findings: ET tube and NG tube remain in place. Left sided CVC tip at least to the mid SVC level. Heart remains mildly enlarged. Mild diffuse interstitial prominence. Continued blunting of the left costophrenic an gle with adjacent patchy opacity. Small right pleural effusion with more extensive right mid and lowe r lung opacity. Overall findings are similar. Impression: 1. Relatively similar findings, correlate for mild CHF. 2. Small right greater than left pleural effusions. Prominent adjacent atelectasis and/or consolidati on especially on the right also similar.
[2017-03-01] MEDS: FUROSEMIDE 40 MG TAB PO SCH (08:19)
[2017-03-01] MEDS: ENOXAPARIN 40 MG/0.4 ML SYRINGE SQ SCH (08:19)
[2017-03-01] MEDS: CHLORHEXIDINE GLUCONATE 15 ML CUP MUCOUS MEM SCH ×2 (08:19→20:50)
[2017-03-01] MEDS: PIPERACILLIN-TAZOBACTAM 3.375 GM in DEXTROSE/WATER 1 50ML.BAG IVPB SCH (08:22)
--- NOTE | 2017-03-01 09:18 | P.PN ---
Subjective A 71-year-old male patient who was admitted yesterday through the emergency department because of nausea, diminished oral intake, generalized weakness and lethargy. The patient apparently had dropped his oral intake and he was feeling progressively more weak. Denied having any chest pain. No cough or sputum production. No abdominal pain or abdominal distention. The patient was felt to be septic of a urinary source. His white cell count was elevated at 28.5 and the patient was also in acute kidney injury. Lactic acid was nonelevated. The patient's urinalysis was significant abnormal with significant number of white cell count and bacteria and the urine itself was quite dirty. The Carrasco catheter was inserted. The patient was started on a combination of vancomycin and Zosyn and he was admitted to the medical floor. This afternoon, the patient became hypotensive and diaphoretic. His blood pressure dropped down to the 50s systolic. At the same time the patient became tachycardic with a heart rate of 120. He was also becoming progressively more lethargic. He was on 6 L oxygen nasal cannula and his pulse ox was around 94%. The patient was brought into the intensive care unit. A triple lumen catheter was inserted. The patient was on IV fluids and pressors. For now the patient is already received 1-1/2 L of IV fluid in the form of normal saline. Levo fed was also initiated at 10 mics initially and currently it's at 30 mics. Urine output is diminished at this point. The patient was subsequently intubated as the patient did not he felt to be awake enough to protect his airway and he be has becoming progressively more hypoxic. I intubated this patient and put him on a mechanical ventilator on assist control mode at the rate of 24, tidal volume 500, PEEP of 5 and FiO2 100%. The patient will have a blood gases and chest x-ray done and these are still pending for now. The patient is known to me. Of taking care of him during a recent bout of sepsis and respiratory failure. The patient came into the ICU last month unresponsive and he was and CO2 narcosis. He was also in acute respiratory failure. He was a shock on pressors. Echocardiogram back then showed an ejection fraction of 40-45% with secondary pulmonary hypertension. CT angios the chest showed no evidence of any pulmonary embolism and there was a tonic right-sided pleural effusion. The patient was ultimately stabilized. He was assumed to have a right lower lobe pneumonia which was treated. All of the cultures came back negative. He was extubated. His acute kidney injury recovered. He was discharged to [facility] on a course of Levaquin On 02/28/2017 the patient is being seen in a follow-up. As mentioned earlier, the patient has gone into respiratory failure due to a complicated urinary tract infection septic shock. He was also intubated and placed on a mechanical ventilator. This morning, his FiO2 is down to 40% with a PEEP of 5 and he has a tidal volume of 500 with a rate of 24. His chest x-ray shows a chronic right- sided pleural effusion and the ET tube is in a good location and the patient has a left subclavian triple-lumen catheter in place. Also, the blood gas shows a pH of 7.37 with a pCO2 of 40 and pO2 of 115. Hemodynamically, the patient has been adequately resuscitated IV fluids. The patient is currently off pressors. White cell count is down to 20.5. The patient has gram-negative bacilli in his blood. ID is on the case. He is a currently on a combination of Zosyn and Levaquin. Vancomycin was discontinued. The patient is producing adequate amount of urine output. He is still in acute kidney injury yet his is nonoliguric. He is producing adequate amount of urine output. Blood sugars under good control. We'll start low-grade/rate tube feeds on him today. I discussed the case with his brother the bedside. On 03/01/2017 the patient is being seen in follow-up. He remains on assist control mode of ventilation with a rate of 24, tidal volume of 500 with an FiO2 of 40% and PEEP of 5. Peak airway pressures around 30 to anesthetic pressures around 20 and on today's evaluation is slightly bronchospastic and wheezy. He was given a sedation holiday. The weaning parameters was checked was poor. He was given a brief this point is breathing trial if her support of 5 and a PEEP of 5 which she was unable to tolerate as the patient became tachypneic and tachycardic. The trial was aborted. The patient is off sedation for now. He is calm and comfortable. Hemodynamically stable. He is off pressors. Function is improving and creatinine is down to 3. White cell count is also improving. Is down to 18. The blood culture was positive for E. coli which is an ESBL producing organism. The patient is on Zosyn and Levaquin and I think this may need to be switched to an antibiotic that covers ESBL, probably Merrem and for that reason this will be discussed with infectious disease. We'll start tube feeds. Possibly no extubation today based on the fifth spontaneous breathing trial. We'll may try the same prosthetic and around 2:00. I came to realize that was felt to put the patient on breathing treatments after being on the mechanical ventilator. He is also known to have COPD. Objective - Vital Signs Vital signs: Vital Signs Temp 98.9 F 03/01/17 04:00 Pulse 54 L 03/01/17 07:00 Resp 24 03/01/17 07:00 BP 109/57 03/01/17 07:00 Pulse Ox 97 03/01/17 07:00 Intake & Output 02/28/17 03/01/17 03/01/17 18:59 06:59 18:59 Intake Total 1055.558 7761.0 225 Output Total 1260 710 75 Balance 640.335 815.0 150 Weight 119 kg 119 kg 117.9 kg Intake: IV 1500 1425.0 125 Piperacillin-Tazobactam 3 50.0 .375 gm In Dextrose/Water 1 50ml.bag @ 12.5 mls/hr IVPB Q12HR [facility] Rx#: [id number] Sodium Chloride 0.9% 1, 1500 1375 125 000 ml @ 125 mls/hr IV . Q8H [facility] Rx#:[id number] Intake, IV Titration 400.335 100 100 Amount Norepinephrin 16 mg-0.9% 5.938 Ns Pmx 16 mg In 250 ml @ Titrate IV .Q0M [facility] Rx#: [id number] Propofol 1,000 mg In 100 269.397 100 100 ml @ Titrate IV .Q0M [facility] Rx#:[id number] Sodium Chloride 0.9% 1, 125 000 ml @ 125 mls/hr IV . Q8H [facility] Rx#:[id number] Output: Urine 810 710 75 Stool 0 Oral Regurgitation 450 Other: Voiding Method Indwelling Catheter Indwelling Catheter ABP, PAP, CO, CI - Last Documented Arterial Blood Pressure 138/54 - Exam Patient is awake and follows some simple commands while off sedation. Intubated on a mechanical ventilator. Orogastric and orotracheal tube are both in place. I saw The patient has significant crowding of the posterior oropharynx and there is a Mallampati class IV. No thrush. Neck is supple. Lung sounds are diminished bilaterally along with some scattered rhonchi and scattered expiratory wheezes. Breath sounds are diminished and there is scattered rhonchi and scattered expiratory wheezes throughout the lung hernandez bilaterally. Heart sounds are regular, normal S1-S2, no cervical murmurs appreciated.Abdominal exam revealed normal bowel sounds. The abdomen was soft, non-tender, and without masses, organomegaly, or appreciable enlargement of the abdominal aorta. Extremities reveal trace edema and there is no cyanosis or clubbing at this point. Pulses are diminished at the present. No skin mottling. No cyanosis or clubbing. Neurologically, the patient was quite obtunded and subsequently was intubated. At this point in time orogastric and tracheal tube are both in place. - Labs CBC & Chem 7: 03/01/17 04:30 03/01/17 04:30 Labs: Abnormal Lab Results - Last 24 Hours (Table) 02/28/17 02/28/17 03/01/17 Range/Units 12:03 18:03 00:14 WBC (3.8-10.6) k/uL Hgb (13.0-17.5) gm/dL Hct (39.0-53.0) % MCHC (31.0-37.0) g/dL RDW (11.5-15.5) % Neutrophils # (1.3-7.7) k/uL Lymphocytes # (1.0-4.8) k/uL ABG pCO2 (35-45) mmHg Chloride (98-107) mmol/L Carbon Dioxide (22-30) mmol/L BUN (9-20) mg/dL Creatinine (0.66-1.25) mg/dL Glucose (74-99) mg/dL POC Glucose (mg/dL) 115 H 113 H 116 H (75-99) mg/dL Calcium (8.4-10.2) mg/dL 03/01/17 03/01/17 03/01/17 Range/Units 04:30 04:30 04:39 WBC 18.5 H (3.8-10.6) k/uL Hgb 11.3 L (13.0-17.5) gm/dL Hct 37.6 L (39.0-53.0) % MCHC 30.0 L (31.0-37.0) g/dL RDW 17.1 H (11.5-15.5) % Neutrophils # 17.1 H (1.3-7.7) k/uL Lymphocytes # 0.7 L (1.0-4.8) k/uL ABG pCO2 34 L (35-45) mmHg Chloride 112 H (98-107) mmol/L Carbon Dioxide 21 L (22-30) mmol/L BUN 70 H (9-20) mg/dL Creatinine 3.10 H (0.66-1.25) mg/dL Glucose 118 H (74-99) mg/dL POC Glucose (mg/dL) (75-99) mg/dL Calcium 7.9 L (8.4-10.2) mg/dL Microbiology - Last 24 Hours (Table) 02/26/17 19:05 Blood Culture Gram Stain - Final Blood Blood Culture - Final Escherichia coli 02/26/17 19:05 Blood Culture Gram Stain - Final Blood Blood Culture - Final Escherichia coli 02/27/17 12:01 Blood Culture Gram Stain - Preliminary Blood Blood Culture - Preliminary Gram Neg Bacilli 02/27/17 23:22 Gram Stain - Preliminary Sputum Sputum Culture - Preliminary 02/26/17 22:35 Urine Culture - Preliminary Urine,Voided Gram Neg Bacilli Assessment and Plan Plan: Assessment 1 septic shock secondary to a E. coli urinary tract infection. The patient has been adequately resuscitated with IV fluids. The patient's blood pressure is normalized and currently is off pressors. It is an ESBL producing organism. This will be discussed with infectious disease. Possibly switch this patient to Merrem. 2 shock secondary to above. This is septic shock. 3 E. coli sepsis secondary to a urine checked infection 4 acute respiratory failure secondary to above. Currently intubated on mechanical ventilator. The patient is broken spastic and wheezy on today's evaluation. He'll be started on DuoNeb nebulized treatments and steroids. 5 chronic right-sided pleural effusion small to moderate in size 6 Obesity 7 acute kidney injury, improving 8 chronic psychiatric disorder and the patient has been maintained on multiple psychotropic medication including Abilify, trazodone, Cogentin and Lamictal on outpatient basis. He has underlying PTSD/bipolar disorder/depression 9 COPD 10 half-way resident 11 hypertension 12 hyperlipidemia 13 chronic smoker 14 preserved LV function based on recent echocardiogram with an ejection fraction of 40% Plan Patient is not ready to wean yet. Discussed with infectious disease the possibility of switching this patient to IV Merrem. I'm going to start the patient DuoNeb the right treatment [id number]. We'll start him on IV insulin Medrol 40 every every 6 hours. Pulmonary toileting. Sputum Gram stain and culture if possible. It sedation may be needed later stage. Possibility for wean today and this will be trialed again tomorrow. Critically care evaluation more than 30 minutes. Time with Patient: Greater than 30
--- NOTE | 2017-03-01 10:34 | P.NPCON ---
History of Present Illness - Reason for Consult acute renal failure - History of Present Illness Reason for consultation: Acute kidney injury History of present illness: Patient is a 71-year-old male seen in renal consultation for acute kidney injury. Baseline creatinine is 1 and peaked at 3.8 this admission. It is down to 3.1 today. Patient presented with nausea poor oral intake and generalized weakness. He is noted to have E. coli urinary tract infection and bacteremia. He was hypotensive on admission and required vasopressor support. He is currently off all vasopressors. He is currently intubated and sedated. He's maintained on normal saline at 125 mL an hour as well as Lasix 40 mg once daily. Hemodynamically he is more stable. He is to be started on tube feeds today. He is nonoliguric with urine output averaging about 50-100 mL an hour. Vital signs are stable. General: Intubated and sedated. HEENT: Head exam is unremarkable. Neck is without jugular venous distension. LUNGS: Scattered rhonchi. Breath sounds decreased. HEART: Rate and Rhythm are regular. First and second heart sounds normal. No murmurs, rubs or gallops. ABDOMEN: Abdominal exam reveals normal bowel sounds. Non-tender and non- distended. No evidence of peritonitis. EXTREMITITES: Trace edema. Past Medical History Past Medical History: No Reported History Additional Past Medical History / Comment(s): Obesity, half-way resident, depression, PTSD, schizophrenia paranoid type, COPD, chronic hypoxic and hypercapnic respiratory failure, hyperlipidemia, hypertension, recent hospitalization for acute respiratory failure requiring intubation mechanical ventilation History of Any Multi-Drug Resistant Organisms: None Reported Past Surgical History: No Surgical Hx Reported Additional Past Surgical History / Comment(s): patient refused to disclose Past Anesthesia/Blood Transfusion Reactions: No Reported Reaction Past Psychological History: PTSD Additional Psychological History / Comment(s): ER report indicated family member states there is a history of mental illness, but unsure what mental illness Smoking Status: Current some day smoker Past Alcohol Use History: None Reported Past Drug Use History: None Reported - Past Family History Father Family Medical History: Unable to Obtain Mother Family Medical History: Unable to Obtain Medications and Allergies Home Medications Medication Instructions Recorded Confirmed Type ARIPiprazole [Abilify] 30 mg PO DAILY 01/15/17 02/26/17 History Acetaminophen [Tylenol] 500 mg PO Q6H PRN 01/15/17 02/26/17 History Aspirin EC [Ecotrin Low Dose] 81 mg PO DAILY 01/15/17 02/26/17 History Atorvastatin [Lipitor] 20 mg PO HS 01/15/17 02/26/17 History Benztropine Mesylate [Cogentin] 2 mg PO HS 01/15/17 02/26/17 History Furosemide [Lasix] 40 mg PO DAILY 01/15/17 02/26/17 History Lisinopril [Zestril] 10 mg PO DAILY 01/15/17 02/26/17 History Naproxen [Naprosyn] 500 mg PO BID 01/15/17 02/26/17 History lamoTRIgine [LaMICtal] 100 mg PO BID 01/15/17 02/26/17 History traZODone HCL 100 mg PO HS 01/15/17 02/26/17 History Ferrous Sulfate [Feosol] 325 mg PO TID 02/26/17 02/26/17 History Allergies Allergy/AdvReac Type Severity Reaction Status Date / Time No Known Allergies Allergy Verified 02/26/17 19:38 Physical Exam Vitals: Vital Signs Temp Pulse Resp BP Pulse Ox 03/01/17 09:00 78 23 123/68 95 03/01/17 08:00 98.4 F 98 3 L 135/68 97 03/01/17 07:00 54 L 24 109/57 97 03/01/17 06:00 56 L 24 106/56 98 03/01/17 05:00 55 L 24 106/58 98 03/01/17 04:00 98.9 F 65 24 110/58 98 03/01/17 03:44 24 99 03/01/17 03:00 60 24 98 03/01/17 02:00 58 L 24 99 03/01/17 01:00 59 L 24 99 03/01/17 00:00 98.9 F 67 24 99 02/28/17 23:34 24 99 02/28/17 23:00 59 L 24 99 02/28/17 22:00 61 24 99 02/28/17 21:00 66 24 98 02/28/17 20:00 99.1 F 64 24 99 02/28/17 19:00 64 24 99 02/28/17 18:30 66 0 L 99 02/28/17 18:00 62 6 L 99 02/28/17 17:30 64 0 L 99 02/28/17 17:00 63 4 L 99 02/28/17 16:30 66 0 L 99 02/28/17 16:00 98.7 F 64 19 99 02/28/17 15:30 64 0 L 99 02/28/17 15:00 74 3 L 99 02/28/17 14:30 66 0 L 99 02/28/17 14:00 64 24 98 02/28/17 13:30 66 20 98 02/28/17 13:00 67 25 H 98 02/28/17 12:30 69 3 L 97 02/28/17 12:00 98.6 F 68 4 L 98 02/28/17 11:30 72 0 L 96 02/28/17 11:00 77 0 L 96 02/28/17 10:30 77 4 L 97 Intake and Output 02/28/17 03/01/17 03/01/17 22:59 06:59 14:59 Intake Total 1261.568 987.5 525 Output Total 990 460 525 Balance 271.568 527.5 0 Intake: IV 1162.5 887.5 425 Piperacillin-Tazobactam 3 37.5 12.5 50 .375 gm In Dextrose/Water 1 50ml.bag @ 12.5 mls/hr IVPB Q12HR [facility] Rx#: [id number] Sodium Chloride 0.9% 1, 1125 875 375 000 ml @ 125 mls/hr IV . Q8H [facility] Rx#:[id number] Intake, IV Titration 99.068 100 100 Amount Propofol 1,000 mg In 100 99.068 100 100 ml @ Titrate IV .Q0M [facility] Rx#:[id number] Output: Urine 540 460 525 Stool 0 Oral Regurgitation 450 Other: Voiding Method Indwelling Catheter Indwelling Catheter Indwelling Catheter # Voids 1 Weight 119 kg 117.9 kg Patient Weight 03/02/17 06:59 Weight 117.9 kg ABP, PAP, CO, CI - Last 8 Hours Arterial Blood Pressure 103/70 Arterial Blood Pressure 159/69 Arterial Blood Pressure 138/54 Arterial Blood Pressure 139/53 Arterial Blood Pressure 124/44 Arterial Blood Pressure 109/59 Arterial Blood Pressure 112/53 Results - Lab Results Most recent lab results ABG pH 7.42 (7.35-7.45) 03/01/17 04:39 ABG pCO2 34 mmHg (35-45) L 03/01/17 04:39 ABG pO2 89 mmHg (83-108) 03/01/17 04:39 ABG HCO3 22 mmol/L (21-25) 03/01/17 04:39 ABG O2 Saturation 97.0 % (94-97) 03/01/17 04:39 Calcium 7.9 mg/dL (8.4-10.2) L 03/01/17 04:30 Phosphorus 4.4 mg/dL (2.5-4.5) 03/01/17 04:30 Magnesium 2.1 mg/dL (1.6-2.3) 03/01/17 04:30 03/01/17 04:30 03/01/17 04:30 Assessment and Plan Plan: Assessment: #1. Nonoliguric acute kidney injury secondary to ischemic ATN secondary to septic shock. Creatinine peaked at 3.8 this admission and is down to 3.1 today. Baseline creatinine is near 1. #2. Septic shock secondary to E. coli bacteremia and UTI. #3. Hypotension secondary to septic shock. #4. Metabolic acidosis secondary to acute kidney injury and IV fluids. Plan: I will decrease rate of IV fluids to 75 mL an hour. Avoid nephrotoxic agents and hypotensive episodes. TFs be started today. Continue to monitor renal function and urine output. No need for renal replacement therapy at this time. Thank you for the consultation. I will continue to follow patient with you during his hospital stay.
[2017-03-01] MEDS: methylPREDNISolone SOD SUCCI 40 MG/ML 1 ML VIAL IV SCH ×2 (11:11→18:03)
[2017-03-01] MEDS: IPRATROPIUM-ALBUTEROL 3 ML NEB INHALATION SCH ×3 (11:44→19:49)
[2017-03-01 12:36] LABS: Glucose,Whole Blood 120 mg/dL (75-99)
--- NOTE | 2017-03-01 16:22 | PN ---
DATE OF SERVICE: 02/28/2017 This 71-year-old gentleman who was admitted with severe sepsis secondary UTI and pneumonia has been closely monitored. The patient was transferred to ICU and the patient is started on broad IV antibiotics. The patient is mechanically intubated. The patient is barely responsive at this time. The cultures are showing gram negative bacilli at this time. PAST MEDICAL HISTORY: Reviewed. REVIEW OF SYSTEMS: Could not be taken. CURRENT MEDICATIONS: 1. Lipitor 20 mg. 2. Cogentin 2 mg. 3. Peridex. 4. Lovenox. 5. Lasix. 6. Solu-Cortef.100 q8. 7. Humalog. 8. Levaquin. 9. Levophed. 10. Zosyn 3.375 q6. 11. Desyrel. PHYSICAL EXAMINATION: The patient is mechanically sedated. Pulse 64, blood pressure 123/52, respirations 24. Mechanical ventilator settings are noted. HEENT: Conjunctivae normal. NECK: No jugular venous distention. CARDIOVASCULAR: S1/.S2. RESPIRATIONS: Diminished breath sounds, especially at the bases. A few scattered rhonchi and crackles. ABDOMEN: Soft, obese. LEGS: No edema, no swelling. NERVOUS SYSTEM: Patient mechanically sedated. LABS: WBC 20.8, hemoglobin 11.4. Creatinine 3.58. ASSESSMENT: 1. Severe sepsis secondary to urinary tract infection with gram negative sepsis present on admission. 2. Change in mental status, acute on chronic metabolic encephalopathy. 3. Acute hypoxic respiratory failure secondary to sepsis. 4. Increased WBC. 5. Nicotine dependence. 6. Acute renal failure, possibly prerenal renal failure. 7. Chronic obstructive pulmonary disease. 8. History of recent pneumonia and sepsis. 9. History of depression. 10. Posttraumatic stress disorder. 11. Schizophrenia. RECOMMENDATIONS: Recommend to continue current medication, continue to monitor , continue symptomatic treatment. Otherwise, at this time I would recommend evaluation with Dr. Mann. Otherwise, see orders for further details. The final ID is pending at this time. The patient is currently on IV Zosyn. Further recommendations to follow. Discussed with the patient's family. Prognosis guarded. Patient is full code. Closely follow with Dr. Goldstein regarding mechanical ventilation. [facility]
[2017-03-01 17:08] LABS: Glucose,Whole Blood 123 mg/dL (75-99)
[2017-03-01] MEDS: ERTAPENEM 1 GM in SODIUM CHLORIDE 0.9% 50 ML IVPB SCH (18:03)
[2017-03-01] MEDS: ATORVASTATIN 20 MG TAB PO SCH (20:49)
[2017-03-01] MEDS: traZODone HCL 100 MG TAB PO SCH (20:50)
[2017-03-01] MEDS: BENZTROPINE MESYLATE 1 MG TAB PO SCH (20:50)
--- NOTE | 2017-03-01 22:11 | P.PN ---
Subjective Principal diagnosis: Respiratory failure 71-year-old male who is known to the pulmonary service from his hospitalization last month which point in time he had a bout of respiratory failure requiring intubation and mechanical ventilation and antibiotic therapy. Eventually improved and was discharged to [facility]. Was treated with a course of antibiotics of levofloxacin. Currently was doing well until the patient in the last day before admission became considerably more week. He was not having significant other symptoms except his profound weakness. He Was Brought to the Emergency Center Where He Was Found Evidence an Extensive Leukocytosis. Within Hours of Admission He Became Worse. He Developed Significant Hypotension and Tachycardia. Because of This He Was Transferred to the Intensive Care Unit. He Became More Hypotensive despite Fluids and Required Vasopressor Therapy. Respiratory Failure Occurred and He Required Intubation and Sedation Mechanical Ventilation. Patient remains sedated and ventilated at this time. Did not do well with the weaning trial. He is however off of vasopressor therapy. Objective - Vital Signs Vital signs: Vital Signs Temp 98.9 F 03/01/17 20:00 Pulse 60 03/01/17 21:00 Resp 24 03/01/17 21:00 BP 110/55 03/01/17 21:00 Pulse Ox 93 L 03/01/17 21:00 Intake & Output 03/01/17 03/01/17 03/02/17 06:59 18:59 06:59 Intake Total 1525.0 1422.5 255 Output Total 710 1920 400 Balance 815.0 -497.5 -145 Weight 119 kg 117.9 kg Intake: IV 1425.0 1150 225 Piperacillin-Tazobactam 3 50.0 50 .375 gm In Dextrose/Water 1 50ml.bag @ 12.5 mls/hr IVPB Q12HR [facility] Rx#: [id number] Sodium Chloride 0.9% 1, 1375 1100 225 000 ml @ 75 mls/hr IV . [id number] [facility] Rx#:[id number] Intake, IV Titration 100 272.5 Amount Propofol 1,000 mg In 100 100 272.5 ml @ Titrate IV .Q0M [facility] Rx#:[id number] Tube Feeding 30 Output: Urine 710 1920 400 Other: Voiding Method Indwelling Catheter Indwelling Catheter Indwelling Catheter # Voids 1 ABP, PAP, CO, CI - Last Documented Arterial Blood Pressure 121/55 - Exam 71-year-old male intubated sedated and mechanically ventilated HEENT: Anicteric conjunctiva are pink and moist nasal mucosa grossly intact without significant lesions, there is no thrush. Edentulous Neck: The neck is supple without significant lymphadenopathy or thyromegaly. Lungs: There are symmetrical air entry. Peyser crackles are heard. Expiratory wheezes. Heart: Regular rate and rhythm with an audible S1-S2, no S3 loud S4 There is no significant murmur click or rub, PMI was nondisplaced. Abdomen: Positive bowel sounds soft and nontender without palpable masses or organomegaly. There was no guarding or rebound. Extremities: The upper and fluctuance have mild generalized edema. Extremities are cool to touch. ulcerations are seen. Neuro: Sedated and mechanically ventilated. - Labs CBC & Chem 7: 03/01/17 04:30 03/01/17 04:30 Labs: Abnormal Lab Results - Last 24 Hours (Table) 03/01/17 03/01/17 03/01/17 Range/Units 00:14 04:30 04:30 WBC 18.5 H (3.8-10.6) k/uL Hgb 11.3 L (13.0-17.5) gm/dL Hct 37.6 L (39.0-53.0) % MCHC 30.0 L (31.0-37.0) g/dL RDW 17.1 H (11.5-15.5) % Neutrophils # 17.1 H (1.3-7.7) k/uL Lymphocytes # 0.7 L (1.0-4.8) k/uL ABG pCO2 (35-45) mmHg Chloride 112 H (98-107) mmol/L Carbon Dioxide 21 L (22-30) mmol/L BUN 70 H (9-20) mg/dL Creatinine 3.10 H (0.66-1.25) mg/dL Glucose 118 H (74-99) mg/dL POC Glucose (mg/dL) 116 H (75-99) mg/dL Calcium 7.9 L (8.4-10.2) mg/dL 03/01/17 03/01/17 03/01/17 Range/Units 04:39 12:34 17:07 WBC (3.8-10.6) k/uL Hgb (13.0-17.5) gm/dL Hct (39.0-53.0) % MCHC (31.0-37.0) g/dL RDW (11.5-15.5) % Neutrophils # (1.3-7.7) k/uL Lymphocytes # (1.0-4.8) k/uL ABG pCO2 34 L (35-45) mmHg Chloride (98-107) mmol/L Carbon Dioxide (22-30) mmol/L BUN (9-20) mg/dL Creatinine (0.66-1.25) mg/dL Glucose (74-99) mg/dL POC Glucose (mg/dL) 120 H 123 H (75-99) mg/dL Calcium (8.4-10.2) mg/dL Microbiology - Last 24 Hours (Table) 02/27/17 12:01 Blood Culture Gram Stain - Final Blood Blood Culture - Final Escherichia coli 02/28/17 10:50 Blood Culture - Preliminary Blood No Growth after 24 hours 02/26/17 22:35 Urine Culture - Final Urine,Voided Escherichia coli 02/26/17 19:05 Blood Culture Gram Stain - Final Blood Blood Culture - Final Escherichia coli 02/26/17 19:05 Blood Culture Gram Stain - Final Blood Blood Culture - Final Escherichia coli Laboratory Results WBC 18.5 k/uL (3.8-10.6) H 03/01/17 04:30 RBC 4.50 m/uL (4.30-5.90) 03/01/17 04:30 Hgb 11.3 gm/dL (13.0-17.5) L 03/01/17 04:30 Hct 37.6 % (39.0-53.0) L 03/01/17 04:30 MCV 83.7 fL (80.0-100.0) 03/01/17 04:30 MCH 25.1 pg (25.0-35.0) 03/01/17 04:30 MCHC 30.0 g/dL (31.0-37.0) L 03/01/17 04:30 RDW 17.1 % (11.5-15.5) H 03/01/17 04:30 Plt Count 215 k/uL (150-450) 03/01/17 04:30 Neutrophils % 92 % 03/01/17 04:30 Lymphocytes % 4 % 03/01/17 04:30 Monocytes % 3 % 03/01/17 04:30 Eosinophils % 0 % 03/01/17 04:30 Basophils % 0 % 03/01/17 04:30 Neutrophils # 17.1 k/uL (1.3-7.7) H 03/01/17 04:30 Lymphocytes # 0.7 k/uL (1.0-4.8) L 03/01/17 04:30 Monocytes # 0.5 k/uL (0-1.0) 03/01/17 04:30 Eosinophils # 0.0 k/uL (0-0.7) 03/01/17 04:30 Basophils # 0.0 k/uL (0-0.2) 03/01/17 04:30 Hypochromasia Marked 03/01/17 04:30 Anisocytosis Slight 03/01/17 04:30 PT 11.5 sec (9.0-12.0) 02/26/17 19:05 INR 1.1 (<1.2) 02/26/17 19:05 APTT 27.0 sec (22.0-30.0) 02/26/17 19:05 D-Dimer 4.65 mg/L FEU (<0.60) H 02/26/17 19:05 Sample Site ART 03/01/17 04:39 ABG pH 7.42 (7.35-7.45) 03/01/17 04:39 ABG pCO2 34 mmHg (35-45) L 03/01/17 04:39 ABG pO2 89 mmHg (83-108) 03/01/17 04:39 ABG HCO3 22 mmol/L (21-25) 03/01/17 04:39 ABG Total CO2 23 mmol/L (19-24) 03/01/17 04:39 ABG O2 Saturation 97.0 % (94-97) 03/01/17 04:39 ABG Base Excess -1.8 mmol/L 03/01/17 04:39 FiO2 40 % 03/01/17 04:39 Sodium 143 mmol/L (137-145) 03/01/17 04:30 Potassium 4.4 mmol/L (3.5-5.1) 03/01/17 04:30 Chloride 112 mmol/L (98-107) H 03/01/17 04:30 Carbon Dioxide 21 mmol/L (22-30) L 03/01/17 04:30 Anion Gap 10 mmol/L 03/01/17 04:30 BUN 70 mg/dL (9-20) H 03/01/17 04:30 Creatinine 3.10 mg/dL (0.66-1.25) H 03/01/17 04:30 Est GFR (MDRD) Af Amer 24 (>60 ml/min/1.73 sqM) 03/01/17 04:30 Est GFR (MDRD) Non-Af 20 (>60 ml/min/1.73 sqM) 03/01/17 04:30 Glucose 118 mg/dL (74-99) H 03/01/17 04:30 POC Glucose (mg/dL) 123 mg/dL (75-99) H 03/01/17 17:07 POC Glu Sorter Pricer ID Fide Velazquez 03/01/17 17:07 Lactic Ac Sepsis Rflx Y 02/26/17 19:53 Plasma Lactic Acid Ezequiel 1.1 mmol/L (0.7-2.0) 02/27/17 17:06 Calcium 7.9 mg/dL (8.4-10.2) L 03/01/17 04:30 Phosphorus 4.4 mg/dL (2.5-4.5) 03/01/17 04:30 Magnesium 2.1 mg/dL (1.6-2.3) 03/01/17 04:30 Total Bilirubin 1.1 mg/dL (0.2-1.3) 02/26/17 19:05 AST 29 U/L (17-59) 02/26/17 19:05 ALT 28 U/L (21-72) 02/26/17 19:05 Alkaline Phosphatase 136 U/L (38-126) H 02/26/17 19:05 Total Creatine Kinase 39 U/L (55-170) L 02/26/17 19:05 CK-MB (CK-2) 0.6 ng/mL (0.0-2.4) 02/26/17 19:05 CK-MB (CK-2) Rel Index 1.5 02/26/17 19:05 Troponin I 0.210 ng/mL (0.000-0.034) H* 02/26/17 19:05 NT-Pro-B Natriuret Pep 44048 pg/mL 02/26/17 19:05 Total Protein 6.0 g/dL (6.3-8.2) L 02/26/17 19:05 Albumin 3.1 g/dL (3.5-5.0) L 02/26/17 19:05 Urine Color Yellow 02/26/17 22:35 Urine Appearance Turbid (Clear) 02/26/17 22:35 Urine pH 5.5 (5.0-8.0) 02/26/17 22:35 Ur Specific [place] 1.015 (1.001-1.035) 02/26/17 22:35 Urine Protein 2+ (Negative) H 02/26/17 22:35 Urine Glucose (UA) Negative (Negative) 02/26/17 22:35 Urine Ketones Negative (Negative) 02/26/17 22:35 Urine Blood Moderate (Negative) H 02/26/17 22:35 Urine Nitrite Negative (Negative) 02/26/17 22:35 Urine Bilirubin Negative (Negative) 02/26/17 22:35 Urine Urobilinogen <2.0 mg/dL (<2.0) 02/26/17 22:35 Ur Leukocyte Esterase Large (Negative) H 02/26/17 22:35 Urine RBC 19 /hpf (0-5) H 02/26/17 22:35 Urine WBC >182 /hpf (0-5) H 02/26/17 22:35 Urine WBC Clumps Occasional /hpf (None) H 02/26/17 22:35 Ur Squamous Epith Cells 1 /hpf (0-4) 02/26/17 22:35 Urine Bacteria Many /hpf (None) H 02/26/17 22:35 Hyaline Casts 4 /lpf (0-2) H 02/26/17 22:35 Granular Casts 6 /lpf (0) 02/26/17 22:35 Gastric Occult Blood Positive (Negative) 02/26/17 21:59 Random Vancomycin 7.2 ug/mL 03/01/17 04:30 Microbiology 02/27/17 12:01 Blood Blood Culture Gram Stain - Final 02/27/17 12:01 Blood Blood Culture - Final Escherichia coli 02/28/17 10:50 Blood Blood Culture - Preliminary No Growth after 24 hours 02/26/17 22:35 Urine,Voided Urine Culture - Final Escherichia coli 02/26/17 19:05 Blood Blood Culture Gram Stain - Final 02/26/17 19:05 Blood Blood Culture - Final Escherichia coli 02/26/17 19:05 Blood Blood Culture Gram Stain - Final 02/26/17 19:05 Blood Blood Culture - Final Escherichia coli 02/27/17 23:22 Sputum Gram Stain - Preliminary 02/27/17 23:22 Sputum Sputum Culture - Preliminary 02/27/17 12:01 Blood Blood Culture - Final 02/26/17 19:05 Blood Blood Culture - Final 02/26/17 19:05 Blood Blood Culture - Final Assessment and Plan (1) Septic shock Narrative/Plan: 71-year-old male presents to hospital with increasing weakness. Shortly after admission became profoundly more ill. He became hypotensive and developed respiratory failure. He required intubation and mechanical ventilation. He remains ventilated at this time. Concerns underlying pneumonia as etiology of his current gram-negative sepsis. Follow cultures are in process and await the final identification. Fortunately there is been some improvement in that his leukocytosis is improved from 28 to 20.Also has had less vasopressor therapy needs. He however does have a acute renal failure his creatinine is at 3.58 and it was 1.04 during his last stay. Antibiotic therapy continues. With gram negatives only being isolated vancomycin is discontinued. Await final culture to determine final course of antibiotic therapy. Follow blood cultures requested given the multiple positive so far. Patient did have a VQ scan performed at admission that was a low probability of pulmonary embolism. However right lower lobe pneumonia is noted. The blood cultures reveal evidence of E. coli ESBL. Thus antibiotic therapy is altered to ertapenem. Follow blood cultures negative so far. Leukocytosis persists related to his sepsis. Appears to be sepsis from urinary system. Status: Acute (2) Pneumonia Status: Acute
[2017-03-01 23:56] LABS: Glucose,Whole Blood 120 mg/dL (75-99)
[2017-03-02] MEDS: methylPREDNISolone SOD SUCCI 40 MG/ML 1 ML VIAL IV SCH ×4 (00:45→17:41)
[2017-03-02] MEDS: INSULIN LISPRO (humaLOG) 300 UNIT/3 ML VIAL SQ SCH ×4 (01:40→17:42)
[2017-03-02] MEDS: PROPOFOL 1,000 MG/100 ML VIAL IV SCH ×4 (01:47→17:41)
[2017-03-02 04:44] LABS: Anisocytosis Slight; Basophils % (A) 0 %; CH 25.7; CHCM 30.3; Eosinophils # (A) 0.1 k/uL (0-0.7); Eosinophils % (A) 0 %; HCT 38.9 % (39.0-53.0); HDW 3.15; HGB 11.6 gm/dL (13.0-17.5); Hypochromasia Marked; Luc # (Auto) 0.15; Luc % (Auto) 1; Lymphocytes # (A) 0.6 k/uL (1.0-4.8); Lymphocytes % (A) 5 %; MCH 25.3 pg (25.0-35.0); MCHC 29.8 g/dL (31.0-37.0); Mean Platelet Volume 9.5; Monocytes # (A) 0.4 k/uL (0-1.0); Monocytes % (A) 4 %; Neutrophils # (A) 10.4 k/uL (1.3-7.7); Neutrophils % (A) 90 %; RBC 4.58 m/uL (4.30-5.90); RDW 17.9 % (11.5-15.5); WBC 11.6 k/uL (3.8-10.6); WBC (Perox) 11.68
[2017-03-02 04:56] LABS: Magnesium 2.3 mg/dL (1.6-2.3); Phosphorous 4.8 mg/dL (2.5-4.5); Potassium 4.1 mmol/L (3.5-5.1)
[2017-03-02 06:20] LABS: ABG Base Excess -0.8 mmol/L; ABG HCO3 23 mmol/L (21-25); ABG Oxygen Saturation 97.6 % (94-97); ABG PCO2 37 mmHg (35-45); ABG PH 7.41 (7.35-7.45); ABG PO2 95 mmHg (83-108); ABG TCO2 24 mmol/L (19-24)
[2017-03-02 06:23] LABS: Glucose,Whole Blood 139 mg/dL (75-99)
[2017-03-02] MEDS: IPRATROPIUM-ALBUTEROL 3 ML NEB INHALATION SCH ×4 (07:32→19:06)
[2017-03-02] MEDS: CHLORHEXIDINE GLUCONATE 15 ML CUP MUCOUS MEM SCH ×2 (08:13→20:15)
[2017-03-02] MEDS: ENOXAPARIN 40 MG/0.4 ML SYRINGE SQ SCH (08:13)
[2017-03-02] MEDS: FUROSEMIDE 40 MG TAB PO SCH (08:13)
[2017-03-02] MEDS: ERTAPENEM 1 GM in SODIUM CHLORIDE 0.9% 50 ML IVPB SCH (08:17)
--- NOTE | 2017-03-02 09:55 | P.PN ---
Subjective Patient is seen in follow-up for acute kidney injury. Renal function is improving with creatinine down to 2.44 today. Baseline creatinine is 1. He remains nonoliguric. Currently intubated and sedated. Patient presented with hypotension along with generalized weakness. He was noted to be in septic shock with urine and blood culture positive for E. coli. His sputum culture is positive for Demi and yeast species. He is maintained on IV antibiotics. Vital signs are stable. General: Intubated. HEENT: Head exam is unremarkable. Neck is without jugular venous distension. LUNGS: Scattered rhonchi. Breath sounds decreased. HEART: Rate and Rhythm are regular. First and second heart sounds normal. No murmurs, rubs or gallops. ABDOMEN: Abdominal exam reveals normal bowel sounds. Non-tender and non- distended. EXTREMITITES: Trace edema. Objective - Vital Signs Vital signs: Vital Signs Temp 98.9 F 03/02/17 08:00 Pulse 52 L 03/02/17 08:17 Resp 24 03/02/17 08:00 BP 124/64 03/02/17 08:00 Pulse Ox 96 03/02/17 08:00 Intake & Output 03/01/17 03/02/17 03/02/17 18:59 06:59 18:59 Intake Total 1422.5 1205 75 Output Total 1920 1310 125 Balance -497.5 -105 -50 Weight 117.9 kg 116.8 kg Intake: IV 1150 975 75 Piperacillin-Tazobactam 3 50 .375 gm In Dextrose/Water 1 50ml.bag @ 12.5 mls/hr IVPB Q12HR [facility] Rx#: [id number] Sodium Chloride 0.9% 1, 1100 975 75 000 ml @ 75 mls/hr IV . [id number] [facility] Rx#:[id number] Intake, IV Titration 272.5 200 Amount Propofol 1,000 mg In 100 272.5 200 ml @ Titrate IV .Q0M [facility] Rx#:[id number] Tube Feeding 30 Output: Urine 1920 1310 125 Other: Voiding Method Indwelling Catheter Indwelling Catheter Indwelling Catheter # Voids 1 ABP, PAP, CO, CI - Last Documented Arterial Blood Pressure 139/71 - Labs CBC & Chem 7: 03/02/17 04:40 03/02/17 04:40 Labs: Abnormal Lab Results - Last 24 Hours (Table) 03/01/17 03/01/17 03/01/17 Range/Units 12:34 17:07 23:54 WBC (3.8-10.6) k/uL Hgb (13.0-17.5) gm/dL Hct (39.0-53.0) % MCHC (31.0-37.0) g/dL RDW (11.5-15.5) % Neutrophils # (1.3-7.7) k/uL Lymphocytes # (1.0-4.8) k/uL ABG O2 Saturation (94-97) % Sodium (137-145) mmol/L Chloride (98-107) mmol/L BUN (9-20) mg/dL Creatinine (0.66-1.25) mg/dL Glucose (74-99) mg/dL POC Glucose (mg/dL) 120 H 123 H 120 H (75-99) mg/dL Calcium (8.4-10.2) mg/dL Phosphorus (2.5-4.5) mg/dL 03/02/17 03/02/17 03/02/17 Range/Units 04:40 04:40 05:30 WBC 11.6 H (3.8-10.6) k/uL Hgb 11.6 L (13.0-17.5) gm/dL Hct 38.9 L (39.0-53.0) % MCHC 29.8 L (31.0-37.0) g/dL RDW 17.9 H (11.5-15.5) % Neutrophils # 10.4 H (1.3-7.7) k/uL Lymphocytes # 0.6 L (1.0-4.8) k/uL ABG O2 Saturation 97.6 H (94-97) % Sodium 146 H (137-145) mmol/L Chloride 114 H (98-107) mmol/L BUN 70 H (9-20) mg/dL Creatinine 2.44 H (0.66-1.25) mg/dL Glucose 129 H (74-99) mg/dL POC Glucose (mg/dL) (75-99) mg/dL Calcium 8.0 L (8.4-10.2) mg/dL Phosphorus 4.8 H (2.5-4.5) mg/dL 03/02/17 Range/Units 06:22 WBC (3.8-10.6) k/uL Hgb (13.0-17.5) gm/dL Hct (39.0-53.0) % MCHC (31.0-37.0) g/dL RDW (11.5-15.5) % Neutrophils # (1.3-7.7) k/uL Lymphocytes # (1.0-4.8) k/uL ABG O2 Saturation (94-97) % Sodium (137-145) mmol/L Chloride (98-107) mmol/L BUN (9-20) mg/dL Creatinine (0.66-1.25) mg/dL Glucose (74-99) mg/dL POC Glucose (mg/dL) 139 H (75-99) mg/dL Calcium (8.4-10.2) mg/dL Phosphorus (2.5-4.5) mg/dL Microbiology - Last 24 Hours (Table) 02/27/17 23:22 Gram Stain - Preliminary Sputum Sputum Culture - Preliminary Demi albicans Yeast species 02/27/17 12:01 Blood Culture Gram Stain - Final Blood Blood Culture - Final Escherichia coli 02/28/17 10:50 Blood Culture - Preliminary Blood No Growth after 24 hours 02/26/17 22:35 Urine Culture - Final Urine,Voided Escherichia coli Assessment and Plan Plan: Assessment: #1. Nonoliguric acute kidney injury secondary to ischemic ATN secondary to septic shock. Creatinine peaked at 3.8 this admission and is down to 2.44 today. Baseline creatinine is near 1. #2. Septic shock secondary to E. coli bacteremia and UTI. Sputum culture positive for Demi yeast be she's. #3. Hypotension secondary to septic shock. Improved. #4. Metabolic acidosis secondary to acute kidney injury and IV fluids. #5. Mild hypernatremia secondary to lack of oral water intake. Plan: I will decrease rate of IV fluids to 50 mL an hour. Maintain tube feeds. Increase free water flushes to 300 mL every 6 hours. Avoid nephrotoxic agents and hypotensive episodes. Continue to monitor renal function and urine output. No need for renal replacement therapy at this time. Abx per ID reccs.
--- NOTE | 2017-03-02 10:57 | XR ---
EXAMINATION TYPE: XR chest 1V portable DATE OF EXAM: 03/02/2017 COMPARISON: 03/01/2017 HISTORY: Ventilatory dependent respiratory failure TECHNIQUE: Single frontal view of the chest is obtained. FINDINGS: There is worsening of the now moderate layering right pleural effusion and trace left pleu ral effusion. Bibasilar atelectasis is seen in association with the pleural effusions creating a retr ocardiac density. Stable placement of a left-sided PICC, enteric tube, and endotracheal tube. Mild pu lmonary vascular congestion remains as well as cardiomegaly. Degenerative changes of the thoracic spi ne are noted. IMPRESSION: 1. Increasing moderate right and trace left pleural effusions with associated atelectasis. 2. Stable lines, tubes and mild pulmonary vascular congestion.
[2017-03-02] MEDS: SODIUM CHLORIDE 0.9% 1,000 ML IV SCH (11:00)
--- NOTE | 2017-03-02 11:27 | P.PN ---
Subjective Principal diagnosis: Acute septic shock secondary to E. coli urinary tract infection. A 71-year-old male patient who was admitted yesterday through the emergency department because of nausea, diminished oral intake, generalized weakness and lethargy. The patient apparently had dropped his oral intake and he was feeling progressively more weak. Denied having any chest pain. No cough or sputum production. No abdominal pain or abdominal distention. The patient was felt to be septic of a urinary source. His white cell count was elevated at 28.5 and the patient was also in acute kidney injury. Lactic acid was nonelevated. The patient's urinalysis was significant abnormal with significant number of white cell count and bacteria and the urine itself was quite dirty. The Carrasco catheter was inserted. The patient was started on a combination of vancomycin and Zosyn and he was admitted to the medical floor. This afternoon, the patient became hypotensive and diaphoretic. His blood pressure dropped down to the 50s systolic. At the same time the patient became tachycardic with a heart rate of 120. He was also becoming progressively more lethargic. He was on 6 L oxygen nasal cannula and his pulse ox was around 94%. The patient was brought into the intensive care unit. A triple lumen catheter was inserted. The patient was on IV fluids and pressors. For now the patient is already received 1-1/2 L of IV fluid in the form of normal saline. Levo fed was also initiated at 10 mics initially and currently it's at 30 mics. Urine output is diminished at this point. The patient was subsequently intubated as the patient did not he felt to be awake enough to protect his airway and he be has becoming progressively more hypoxic. I intubated this patient and put him on a mechanical ventilator on assist control mode at the rate of 24, tidal volume 500, PEEP of 5 and FiO2 100%. The patient will have a blood gases and chest x-ray done and these are still pending for now. The patient is known to me. Of taking care of him during a recent bout of sepsis and respiratory failure. The patient came into the ICU last month unresponsive and he was and CO2 narcosis. He was also in acute respiratory failure. He was a shock on pressors. Echocardiogram back then showed an ejection fraction of 40-45% with secondary pulmonary hypertension. CT angios the chest showed no evidence of any pulmonary embolism and there was a tonic right-sided pleural effusion. The patient was ultimately stabilized. He was assumed to have a right lower lobe pneumonia which was treated. All of the cultures came back negative. He was extubated. His acute kidney injury recovered. He was discharged to [facility] on a course of Levaquin On 02/28/2017 the patient is being seen in a follow-up. As mentioned earlier, the patient has gone into respiratory failure due to a complicated urinary tract infection septic shock. He was also intubated and placed on a mechanical ventilator. This morning, his FiO2 is down to 40% with a PEEP of 5 and he has a tidal volume of 500 with a rate of 24. His chest x-ray shows a chronic right- sided pleural effusion and the ET tube is in a good location and the patient has a left subclavian triple-lumen catheter in place. Also, the blood gas shows a pH of 7.37 with a pCO2 of 40 and pO2 of 115. Hemodynamically, the patient has been adequately resuscitated IV fluids. The patient is currently off pressors. White cell count is down to 20.5. The patient has gram-negative bacilli in his blood. ID is on the case. He is a currently on a combination of Zosyn and Levaquin. Vancomycin was discontinued. The patient is producing adequate amount of urine output. He is still in acute kidney injury yet his is nonoliguric. He is producing adequate amount of urine output. Blood sugars under good control. We'll start low-grade/rate tube feeds on him today. I discussed the case with his brother the bedside. On 03/01/2017 the patient is being seen in follow-up. He remains on assist control mode of ventilation with a rate of 24, tidal volume of 500 with an FiO2 of 40% and PEEP of 5. Peak airway pressures around 30 to anesthetic pressures around 20 and on today's evaluation is slightly bronchospastic and wheezy. He was given a sedation holiday. The weaning parameters was checked was poor. He was given a brief this point is breathing trial if her support of 5 and a PEEP of 5 which she was unable to tolerate as the patient became tachypneic and tachycardic. The trial was aborted. The patient is off sedation for now. He is calm and comfortable. Hemodynamically stable. He is off pressors. Function is improving and creatinine is down to 3. White cell count is also improving. Is down to 18. The blood culture was positive for E. coli which is an ESBL producing organism. The patient is on Zosyn and Levaquin and I think this may need to be switched to an antibiotic that covers ESBL, probably Merrem and for that reason this will be discussed with infectious disease. We'll start tube feeds. Possibly no extubation today based on the fifth spontaneous breathing trial. We'll may try the same prosthetic and around 2:00. I came to realize that was felt to put the patient on breathing treatments after being on the mechanical ventilator. He is also known to have COPD. Patient was reevaluated today on 03/02/2017, remains on mechanical ventilation, vent settings are tidal volume of 500, assist control rate of 24 FiO2 of 40% and PEEP of 5. ABG showed a pO2 of 95 pCO2 of 37 pH of 7.41. Basic metabolic profile was relatively normal, however BUN is 70 creatinine is 2.44. Renal profile seems to be steadily improving over the last few days. Peak airway pressure is about 32 plateau pressures about 20. Patient is presently off pressors, however according to the nurses when he was weaned off sedation, he became extremely agitated and restless tachycardic and tachypneic. Hence he had to be placed back on propofol. Patient is now on ertapenem for ESBL producing organism/E. coli. Patient is also on nutritional support via enteral feeding. Chest x-ray was reviewed and there seems to be evidence of right basilar atelectasis, and possibly small or moderate pleural effusion on the right side. May eventually consider ultrasound guided thoracentesis if his chest x-ray does not show much improvement. Objective - Vital Signs Vital signs: Vital Signs Temp 98.9 F 03/02/17 08:00 Pulse 54 L 03/02/17 10:00 Resp 7 L 03/02/17 10:00 BP 119/62 03/02/17 10:00 Pulse Ox 97 03/02/17 10:00 Intake & Output 03/01/17 03/02/17 03/02/17 18:59 06:59 18:59 Intake Total 1422.5 1205 392.942 Output Total 1920 1310 400 Balance -497.5 -105 -7.058 Weight 117.9 kg 116.8 kg 116.8 kg Intake: IV 1150 975 200 Piperacillin-Tazobactam 3 50 .375 gm In Dextrose/Water 1 50ml.bag @ 12.5 mls/hr IVPB Q12HR [facility] Rx#: [id number] Sodium Chloride 0.9% 1, 1100 975 200 000 ml @ 75 mls/hr IV . [id number] [facility] Rx#:[id number] Intake, IV Titration 272.5 200 142.942 Amount Propofol 1,000 mg In 100 272.5 200 92.942 ml @ Titrate IV .Q0M [facility] Rx#:[id number] Sodium Chloride 0.9% 1, 50 000 ml @ 50 mls/hr IV . Q20H [facility] Rx#:[id number] Tube Feeding 30 50 Output: Urine 1920 1310 400 Other: Voiding Method Indwelling Catheter Indwelling Catheter Indwelling Catheter # Voids 1 ABP, PAP, CO, CI - Last Documented Arterial Blood Pressure 128/63 - Exam Physical Exam: Revealed a 71-year-old white male sedated, on mechanical ventilation. Endotracheal tube and orogastric tube seemed to be intact. HEENT:[Neck is supple.] [No neck masses.] [No thyromegaly.] [No JVD.] Chest: [Scattered rhonchi and wheezes bilaterally diminished at the bases Cardiac Exam: [Normal S1 and S2, no S3 gallop, no murmur.] Abdomen: [Soft, nontender, no megaly, no rebound, no guarding, normal bowel sounds.] Extremities: [No clubbing, no edema, no cyanosis.] Neurological Exam: Cannot be assessed, patient sedated on propofol drip] - Labs CBC & Chem 7: 03/02/17 04:40 03/02/17 04:40 Labs: Abnormal Lab Results - Last 24 Hours (Table) 03/01/17 03/01/17 03/01/17 Range/Units 12:34 17:07 23:54 WBC (3.8-10.6) k/uL Hgb (13.0-17.5) gm/dL Hct (39.0-53.0) % MCHC (31.0-37.0) g/dL RDW (11.5-15.5) % Neutrophils # (1.3-7.7) k/uL Lymphocytes # (1.0-4.8) k/uL ABG O2 Saturation (94-97) % Sodium (137-145) mmol/L Chloride (98-107) mmol/L BUN (9-20) mg/dL Creatinine (0.66-1.25) mg/dL Glucose (74-99) mg/dL POC Glucose (mg/dL) 120 H 123 H 120 H (75-99) mg/dL Calcium (8.4-10.2) mg/dL Phosphorus (2.5-4.5) mg/dL 03/02/17 03/02/17 03/02/17 Range/Units 04:40 04:40 05:30 WBC 11.6 H (3.8-10.6) k/uL Hgb 11.6 L (13.0-17.5) gm/dL Hct 38.9 L (39.0-53.0) % MCHC 29.8 L (31.0-37.0) g/dL RDW 17.9 H (11.5-15.5) % Neutrophils # 10.4 H (1.3-7.7) k/uL Lymphocytes # 0.6 L (1.0-4.8) k/uL ABG O2 Saturation 97.6 H (94-97) % Sodium 146 H (137-145) mmol/L Chloride 114 H (98-107) mmol/L BUN 70 H (9-20) mg/dL Creatinine 2.44 H (0.66-1.25) mg/dL Glucose 129 H (74-99) mg/dL POC Glucose (mg/dL) (75-99) mg/dL Calcium 8.0 L (8.4-10.2) mg/dL Phosphorus 4.8 H (2.5-4.5) mg/dL 03/02/17 Range/Units 06:22 WBC (3.8-10.6) k/uL Hgb (13.0-17.5) gm/dL Hct (39.0-53.0) % MCHC (31.0-37.0) g/dL RDW (11.5-15.5) % Neutrophils # (1.3-7.7) k/uL Lymphocytes # (1.0-4.8) k/uL ABG O2 Saturation (94-97) % Sodium (137-145) mmol/L Chloride (98-107) mmol/L BUN (9-20) mg/dL Creatinine (0.66-1.25) mg/dL Glucose (74-99) mg/dL POC Glucose (mg/dL) 139 H (75-99) mg/dL Calcium (8.4-10.2) mg/dL Phosphorus (2.5-4.5) mg/dL Microbiology - Last 24 Hours (Table) 02/27/17 23:22 Gram Stain - Preliminary Sputum Sputum Culture - Preliminary Demi albicans Yeast species 02/27/17 12:01 Blood Culture Gram Stain - Final Blood Blood Culture - Final Escherichia coli 02/28/17 10:50 Blood Culture - Preliminary Blood No Growth after 24 hours 02/26/17 22:35 Urine Culture - Final Urine,Voided Escherichia coli Assessment and Plan Plan: 1 septic shock secondary to a E. coli urinary tract infection. The patient has been adequately resuscitated with IV fluids. The patient's blood pressure is normalized and currently is off pressors. It is an ESBL producing organism. This will be discussed with infectious disease. Possibly switch this patient to Merrem. 2 shock secondary to above. This is septic shock. 3 E. coli sepsis secondary to a urine checked infection 4 acute respiratory failure secondary to above. Currently intubated on mechanical ventilator. The patient is broken spastic and wheezy on today's evaluation. He'll be started on DuoNeb nebulized treatments and steroids. 5 chronic right-sided pleural effusion small to moderate in size 6 Obesity 7 acute kidney injury, improving 8 chronic psychiatric disorder and the patient has been maintained on multiple psychotropic medication including Abilify, trazodone, Cogentin and Lamictal on outpatient basis. He has underlying PTSD/bipolar disorder/depression 9 COPD 10 correction resident 11 hypertension 12 hyperlipidemia 13 chronic smoker 14 preserved LV function based on recent echocardiogram with an ejection fraction of 40% Recommendation: Patient is clearly not ready to be weaned and extubated at this point, continue present antibiotics, bronchodilators, antibiotics, nutritional support, continue trials of weaning on a daily basis. No family members at bedside, we'll discuss with family his overall condition hopefully in the next 24 hours. Critical care time is 35 minutes. Time with Patient: Greater than 30
--- NOTE | 2017-03-02 11:34 | PN ---
DATE OF SERVICE: 03/01/2017 This 71-year-old gentleman was admitted with acute severe sepsis secondary to UTI. Also, had a gram negative sepsis. The patient is on mechanical ventilation. The patient is being closely monitored at this time. The patient also had ESBL E. coli from the cultures and patient is on mechanical ventilation , 500 tidal volume, 40% FIO2, [address] Goldstein is following the patient closely. Nephrology is also following the patient for renal failure. Past medical history and review of systems could not be taken because of change in mental status. CURRENT MEDICATIONS: Reviewed and include: 1. DuoNeb q.i.d. and p.r.n. 2. Lipitor 20 mg q h.s. 3. Cogentin 2 mg q h.s. 4. Peridex. 5. Lovenox 40 mg subcu daily. 6. Ertapenem 1 gm IV daily. 7. Lasix. 8. Humalog. 9. Solu-Medrol 40 IV q6. 10. Narcan. 11. Diprivan. 12. Desyrel. PHYSICAL EXAMINATION: The patient is mechanically sedated. Pulse is 58, blood pressure 114/66, respirations 20, temperature 98.8, pulse ox 98% on mechanical ventilation, 40% FIO2. HEENT: Conjunctivae normal. Oral mucosa moist. NECK: No JVD. No lymph node enlargement. CARDIOVASCULAR: S1/S2. RESPIRATORY: Diminished breath sounds, especially at the bases. A few scattered rhonchi and crackles. Expiratory wheezing also present. ABDOMEN: Soft, nontender. LEGS: No edema. NEURO: No focal deficits. LABS: WBC 18.5, hemoglobin 11.3. Glucose noted. Creatinine 3.1 ASSESSMENT: 1. Severe sepsis secondary to ESBL Escherichia coli and urinary tract infection , present on admission. 2. Change in mental status, acute on chronic metabolic encephalopathy. 3. Acute hypoxic respiratory failure secondary to sepsis. 4. Increased WBC. 5. History of nicotine dependence. 6. Acute renal failure, possibly prerenal renal failure. RECOMMENDATIONS AND DISCUSSION: Recommend to continue current medication, continue to monitor, continue symptomatic treatment. Otherwise, closely monitor. Guarded prognosis. Continue with antibiotics meropenem. Infectious disease evaluation. Guarded prognosis because of the multiple complex medical issues. Further recommendations to follow. MTDD
[2017-03-02 12:18] LABS: Glucose,Whole Blood 136 mg/dL (75-99)
[2017-03-02 12:18] LABS: Glucose,Whole Blood 45 mg/dL (75-99)
[2017-03-02 17:42] LABS: Glucose,Whole Blood 147 mg/dL (75-99)
[2017-03-02] MEDS: BENZTROPINE MESYLATE 1 MG TAB PO SCH (20:15)
[2017-03-02] MEDS: ATORVASTATIN 20 MG TAB PO SCH (20:15)
[2017-03-02] MEDS: traZODone HCL 100 MG TAB PO SCH (20:16)
--- NOTE | 2017-03-02 20:53 | P.PN ---
Subjective Principal diagnosis: Respiratory failure 71-year-old male who is known to the pulmonary service from his hospitalization last month which point in time he had a bout of respiratory failure requiring intubation and mechanical ventilation and antibiotic therapy. Eventually improved and was discharged to [facility]. Was treated with a course of antibiotics of levofloxacin. Currently was doing well until the patient in the last day before admission became considerably more week. He was not having significant other symptoms except his profound weakness. He Was Brought to the Emergency Center Where He Was Found Evidence an Extensive Leukocytosis. Within Hours of Admission He Became Worse. He Developed Significant Hypotension and Tachycardia. Because of This He Was Transferred to the Intensive Care Unit. He Became More Hypotensive despite Fluids and Required Vasopressor Therapy. Respiratory Failure Occurred and He Required Intubation and Sedation Mechanical Ventilation. Patient remains sedated and ventilated at this time. He is however off of vasopressor therapy. Objective - Vital Signs Vital signs: Vital Signs Temp 99.1 F 03/02/17 20:00 Pulse 71 03/02/17 20:00 Resp 16 03/02/17 20:00 BP 128/54 03/02/17 20:00 Pulse Ox 94 L 03/02/17 20:00 Intake & Output 03/02/17 03/02/17 03/03/17 06:59 18:59 06:59 Intake Total 1205 1353.537 210 Output Total 1310 1670 335 Balance -105 -316.463 -125 Weight 116.8 kg 116.8 kg Intake: IV 975 200 50 Sodium Chloride 0.9% 1, 50 000 ml @ 50 mls/hr IV . Q20H [facility] Rx#:[id number] Sodium Chloride 0.9% 1, 975 200 000 ml @ 75 mls/hr IV . [id number] [facility] Rx#:[id number] Intake, IV Titration 200 593.537 50 Amount Propofol 1,000 mg In 100 200 193.537 ml @ Titrate IV .Q0M [facility] Rx#:[id number] Sodium Chloride 0.9% 1, 400 50 000 ml @ 50 mls/hr IV . Q20H [facility] Rx#:[id number] Tube Feeding 30 260 80 Other 300 30 Output: Urine 1310 1670 335 Stool 0 Other: Voiding Method Indwelling Catheter Indwelling Catheter Indwelling Catheter # Bowel Movements 0 ABP, PAP, CO, CI - Last Documented Arterial Blood Pressure 146/78 - Exam 71-year-old male intubated sedated and mechanically ventilated HEENT: Anicteric conjunctiva are pink and moist nasal mucosa grossly intact without significant lesions, there is no thrush. Edentulous Neck: The neck is supple without significant lymphadenopathy or thyromegaly. Lungs: There are symmetrical air entry. basilar crackles are heard. Expiratory wheezes. Heart: Regular rate and rhythm with an audible S1-S2, no S3 loud S4 There is no significant murmur click or rub, PMI was nondisplaced. Abdomen: Positive bowel sounds soft and nontender without palpable masses or organomegaly. There was no guarding or rebound. Extremities: The upper and fluctuance have mild generalized edema. Extremities are cool to touch. ulcerations are seen. Neuro: Sedated and mechanically ventilated. - Labs CBC & Chem 7: 03/02/17 04:40 03/02/17 04:40 Labs: Abnormal Lab Results - Last 24 Hours (Table) 03/01/17 03/02/17 03/02/17 Range/Units 23:54 04:40 04:40 WBC 11.6 H (3.8-10.6) k/uL Hgb 11.6 L (13.0-17.5) gm/dL Hct 38.9 L (39.0-53.0) % MCHC 29.8 L (31.0-37.0) g/dL RDW 17.9 H (11.5-15.5) % Neutrophils # 10.4 H (1.3-7.7) k/uL Lymphocytes # 0.6 L (1.0-4.8) k/uL ABG O2 Saturation (94-97) % Sodium 146 H (137-145) mmol/L Chloride 114 H (98-107) mmol/L BUN 70 H (9-20) mg/dL Creatinine 2.44 H (0.66-1.25) mg/dL Glucose 129 H (74-99) mg/dL POC Glucose (mg/dL) 120 H (75-99) mg/dL Calcium 8.0 L (8.4-10.2) mg/dL Phosphorus 4.8 H (2.5-4.5) mg/dL 08/14/17 08/14/17 08/14/17 Range/Units 05:30 06:22 12:11 WBC (3.8-10.6) k/uL Hgb (13.0-17.5) gm/dL Hct (39.0-53.0) % MCHC (31.0-37.0) g/dL RDW (11.5-15.5) % Neutrophils # (1.3-7.7) k/uL Lymphocytes # (1.0-4.8) k/uL ABG O2 Saturation 97.6 H (94-97) % Sodium (137-145) mmol/L Chloride (98-107) mmol/L BUN (9-20) mg/dL Creatinine (0.66-1.25) mg/dL Glucose (74-99) mg/dL POC Glucose (mg/dL) 139 H 45 L (75-99) mg/dL Calcium (8.4-10.2) mg/dL Phosphorus (2.5-4.5) mg/dL 03/02/17 03/02/17 Range/Units 12:16 17:40 WBC (3.8-10.6) k/uL Hgb (13.0-17.5) gm/dL Hct (39.0-53.0) % MCHC (31.0-37.0) g/dL RDW (11.5-15.5) % Neutrophils # (1.3-7.7) k/uL Lymphocytes # (1.0-4.8) k/uL ABG O2 Saturation (94-97) % Sodium (137-145) mmol/L Chloride (98-107) mmol/L BUN (9-20) mg/dL Creatinine (0.66-1.25) mg/dL Glucose (74-99) mg/dL POC Glucose (mg/dL) 136 H 147 H (75-99) mg/dL Calcium (8.4-10.2) mg/dL Phosphorus (2.5-4.5) mg/dL Microbiology - Last 24 Hours (Table) 02/28/17 10:50 Blood Culture - Preliminary Blood No Growth after 48 hours 02/27/17 23:22 Gram Stain - Final Sputum Sputum Culture - Final Demi albicans Demi glabrata 02/27/17 12:01 Blood Culture Gram Stain - Final Blood Blood Culture - Final Escherichia coli Laboratory Results WBC 11.6 k/uL (3.8-10.6) H 03/02/17 04:40 RBC 4.58 m/uL (4.30-5.90) 03/02/17 04:40 Hgb 11.6 gm/dL (13.0-17.5) L 03/02/17 04:40 Hct 38.9 % (39.0-53.0) L 03/02/17 04:40 MCV 85.0 fL (80.0-100.0) 03/02/17 04:40 MCH 25.3 pg (25.0-35.0) 03/02/17 04:40 MCHC 29.8 g/dL (31.0-37.0) L 03/02/17 04:40 RDW 17.9 % (11.5-15.5) H 03/02/17 04:40 Plt Count 202 k/uL (150-450) 03/02/17 04:40 Neutrophils % 90 % 03/02/17 04:40 Lymphocytes % 5 % 03/02/17 04:40 Monocytes % 4 % 03/02/17 04:40 Eosinophils % 0 % 03/02/17 04:40 Basophils % 0 % 03/02/17 04:40 Neutrophils # 10.4 k/uL (1.3-7.7) H 03/02/17 04:40 Lymphocytes # 0.6 k/uL (1.0-4.8) L 03/02/17 04:40 Monocytes # 0.4 k/uL (0-1.0) 03/02/17 04:40 Eosinophils # 0.1 k/uL (0-0.7) 03/02/17 04:40 Basophils # 0.0 k/uL (0-0.2) 03/02/17 04:40 Hypochromasia Marked 03/02/17 04:40 Anisocytosis Slight 03/02/17 04:40 PT 11.5 sec (9.0-12.0) 02/26/17 19:05 INR 1.1 (<1.2) 02/26/17 19:05 APTT 27.0 sec (22.0-30.0) 02/26/17 19:05 D-Dimer 4.65 mg/L FEU (<0.60) H 02/26/17 19:05 Sample Site [place] 03/02/17 05:30 ABG pH 7.41 (7.35-7.45) 03/02/17 05:30 ABG pCO2 37 mmHg (35-45) 03/02/17 05:30 ABG pO2 95 mmHg (83-108) 03/02/17 05:30 ABG HCO3 23 mmol/L (21-25) 03/02/17 05:30 ABG Total CO2 24 mmol/L (19-24) 03/02/17 05:30 ABG O2 Saturation 97.6 % (94-97) H 03/02/17 05:30 ABG Base Excess -0.8 mmol/L 03/02/17 05:30 FiO2 40 % 03/02/17 05:30 Sodium 146 mmol/L (137-145) H 03/02/17 04:40 Potassium 4.1 mmol/L (3.5-5.1) 03/02/17 04:40 Chloride 114 mmol/L (98-107) H 03/02/17 04:40 Carbon Dioxide 24 mmol/L (22-30) 03/02/17 04:40 Anion Gap 8 mmol/L 03/02/17 04:40 BUN 70 mg/dL (9-20) H 03/02/17 04:40 Creatinine 2.44 mg/dL (0.66-1.25) H 03/02/17 04:40 Est GFR (MDRD) Af Amer 32 (>60 ml/min/1.73 sqM) 03/02/17 04:40 Est GFR (MDRD) Non-Af 26 (>60 ml/min/1.73 sqM) 03/02/17 04:40 Glucose 129 mg/dL (74-99) H 03/02/17 04:40 POC Glucose (mg/dL) 147 mg/dL (75-99) H 03/02/17 17:40 POC Glu Coil Winder [employer] ID Angela Martin 03/02/17 17:40 Lactic Ac Sepsis Rflx Y 02/26/17 19:53 Plasma Lactic Acid Ezequiel 1.1 mmol/L (0.7-2.0) 02/27/17 17:06 Calcium 8.0 mg/dL (8.4-10.2) L 03/02/17 04:40 Phosphorus 4.8 mg/dL (2.5-4.5) H 03/02/17 04:40 Magnesium 2.3 mg/dL (1.6-2.3) 03/02/17 04:40 Total Bilirubin 1.1 mg/dL (0.2-1.3) 02/26/17 19:05 AST 29 U/L (17-59) 02/26/17 19:05 ALT 28 U/L (21-72) 02/26/17 19:05 Alkaline Phosphatase 136 U/L (38-126) H 02/26/17 19:05 Total Creatine Kinase 39 U/L (55-170) L 02/26/17 19:05 CK-MB (CK-2) 0.6 ng/mL (0.0-2.4) 02/26/17 19:05 CK-MB (CK-2) Rel Index 1.5 02/26/17 19:05 Troponin I 0.210 ng/mL (0.000-0.034) H* 02/26/17 19:05 NT-Pro-B Natriuret Pep 96218 pg/mL 02/26/17 19:05 Total Protein 6.0 g/dL (6.3-8.2) L 02/26/17 19:05 Albumin 3.1 g/dL (3.5-5.0) L 02/26/17 19:05 Urine Color Yellow 02/26/17 22:35 Urine Appearance Turbid (Clear) 02/26/17 22:35 Urine pH 5.5 (5.0-8.0) 02/26/17 22:35 Ur Specific [place] 1.015 (1.001-1.035) 02/26/17 22:35 Urine Protein 2+ (Negative) H 02/26/17 22:35 Urine Glucose (UA) Negative (Negative) 02/26/17 22:35 Urine Ketones Negative (Negative) 02/26/17 22:35 Urine Blood Moderate (Negative) H 02/26/17 22:35 Urine Nitrite Negative (Negative) 02/26/17 22:35 Urine Bilirubin Negative (Negative) 02/26/17 22:35 Urine Urobilinogen <2.0 mg/dL (<2.0) 02/26/17 22:35 Ur Leukocyte Esterase Large (Negative) H 02/26/17 22:35 Urine RBC 19 /hpf (0-5) H 02/26/17 22:35 Urine WBC >182 /hpf (0-5) H 02/26/17 22:35 Urine WBC Clumps Occasional /hpf (None) H 02/26/17 22:35 Ur Squamous Epith Cells 1 /hpf (0-4) 02/26/17 22:35 Urine Bacteria Many /hpf (None) H 02/26/17 22:35 Hyaline Casts 4 /lpf (0-2) H 02/26/17 22:35 Granular Casts 6 /lpf (0) 02/26/17 22:35 Gastric Occult Blood Positive (Negative) 02/26/17 21:59 Random Vancomycin 7.2 ug/mL 03/01/17 04:30 Microbiology 02/28/17 10:50 Blood Blood Culture - Preliminary No Growth after 48 hours 02/27/17 23:22 Sputum Gram Stain - Final 02/27/17 23:22 Sputum Sputum Culture - Final Demi albicans Demi glabrata 02/27/17 12:01 Blood Blood Culture Gram Stain - Final 02/27/17 12:01 Blood Blood Culture - Final Escherichia coli 02/26/17 22:35 Urine,Voided Urine Culture - Final Escherichia coli 02/26/17 19:05 Blood Blood Culture Gram Stain - Final 02/26/17 19:05 Blood Blood Culture - Final Escherichia coli 02/26/17 19:05 Blood Blood Culture Gram Stain - Final 02/26/17 19:05 Blood Blood Culture - Final Escherichia coli 02/27/17 12:01 Blood Blood Culture - Final 02/26/17 19:05 Blood Blood Culture - Final 02/26/17 19:05 Blood Blood Culture - Final Assessment and Plan (1) Septic shock Narrative/Plan: 71-year-old male presents to hospital with increasing weakness. Shortly after admission became profoundly more ill. He became hypotensive and developed respiratory failure. He required intubation and mechanical ventilation. He remains ventilated at this time. Concerns underlying pneumonia as etiology of his current gram-negative sepsis. Follow cultures are in process and await the final identification. Fortunately there is been some improvement in that his leukocytosis is improved from 28 to 20.Also has had less vasopressor therapy needs. He however does have a acute renal failure his creatinine is at 3.58 and it was 1.04 during his last stay. Antibiotic therapy continues. With gram negatives only being isolated vancomycin is discontinued. Await final culture to determine final course of antibiotic therapy. Follow blood cultures requested given the multiple positive so far. Patient did have a VQ scan performed at admission that was a low probability of pulmonary embolism. However right lower lobe pneumonia is noted. The blood cultures reveal evidence of E. coli ESBL. Thus antibiotic therapy was altered to ertapenem. Follow up blood cultures negative so far. Leukocytosis persists related to his sepsis. Appears to be sepsis from urinary system. Status: Acute (2) Pneumonia Status: Acute
[2017-03-03] MEDS: INSULIN LISPRO (humaLOG) 300 UNIT/3 ML VIAL SQ SCH ×4 (01:18→18:12)
[2017-03-03] MEDS: PROPOFOL 1,000 MG/100 ML VIAL IV SCH ×3 (01:19→16:49)
[2017-03-03] MEDS: methylPREDNISolone SOD SUCCI 40 MG/ML 1 ML VIAL IV SCH ×4 (01:19→18:12)
[2017-03-03 01:20] LABS: Glucose,Whole Blood 129 mg/dL (75-99)
[2017-03-03 01:20] LABS: Glucose,Whole Blood 23 mg/dL (75-99)
[2017-03-03 05:13] LABS: Anisocytosis Slight; Basophils % (A) 0 %; CH 25.5; CHCM 30.3; Eosinophils % (A) 0 %; HCT 38.4 % (39.0-53.0); HDW 3.13; HGB 11.4 gm/dL (13.0-17.5); Hypochromasia Marked; Luc # (Auto) 0.21; Luc % (Auto) 2; Lymphocytes # (A) 0.6 k/uL (1.0-4.8); Lymphocytes % (A) 5 %; MCH 25.2 pg (25.0-35.0); MCHC 29.8 g/dL (31.0-37.0); MCV 84.4 fL (80.0-100.0); Mean Platelet Volume 9.5; Monocytes # (A) 0.6 k/uL (0-1.0); Monocytes % (A) 6 %; Neutrophils # (A) 8.9 k/uL (1.3-7.7); Neutrophils % (A) 87 %; RBC 4.55 m/uL (4.30-5.90); RDW 17.9 % (11.5-15.5); WBC 10.3 k/uL (3.8-10.6); WBC (Perox) 10.84
[2017-03-03 05:21] LABS: INR 1.2 (<1.2); Magnesium 2.4 mg/dL (1.6-2.3); Potassium 3.9 mmol/L (3.5-5.1); Prothrombin Time 11.5 sec (9.0-12.0); Total Bilirubin 0.3 mg/dL (0.2-1.3); Total Protein 4.9 g/dL (6.3-8.2)
[2017-03-03 05:32] LABS: Glucose,Whole Blood 175 mg/dL (75-99)
[2017-03-03] MEDS: SODIUM CHLORIDE 0.9% 1,000 ML IV SCH ×2 (05:32→16:49)
[2017-03-03] MEDS ORDERED: Potassium Replacement Protocol 1 EACH MISC MISCELLANE PRN (06:01)
[2017-03-03] MEDS ORDERED: POTASSIUM CHLORIDE ORAL LIQUID 40 MEQ/30 ML CUP NG-TUBE SCH ×2 (07:00→18:00)
[2017-03-03] MEDS: IPRATROPIUM-ALBUTEROL 3 ML NEB INHALATION SCH ×4 (07:18→19:39)
--- NOTE | 2017-03-03 07:41 | XR ---
EXAMINATION TYPE: XR chest 1V portable DATE OF EXAM: 03/03/2017 COMPARISON: March 02, 2017 HISTORY: SOB, Follow Up FINDINGS: Indwelling tubes and catheters are unchanged. Persistent airspace consolidation right lower lobe with associated pleural effusions. Pulmonary venou s congestion without overt failure. Stable appearance of the cardio-mediastinal structures at this time. Pleural effusion unchanged. IMPRESSION: 1. Persistent airspace consolidation right lower lobe with associated pleural effusions. Pulmonary v enous congestion without overt failure.
--- NOTE | 2017-03-03 07:41 | PN ---
DATE OF SERVICE: 03/02/17 This 71 -year-old gentleman who was admitted with sepsis secondary to UTI, had ESBL E. coli. The patient mechanically ventilated and sedated. Blood pressure is maintained at this time. The weaning attempt will be done tomorrow. Dr. Gallardo is following the patient closely. WBC improved to 11.6 at this time. Past medical history reviewed. REVIEW OF SYSTEMS: Could not be taken. Current medications are reviewed and include: 1. DuoNeb q.i.d. and prn. 2. Lipitor 20 mg q.h.s. 3. Cogentin 2 mg q.h.s. 4. Peridex. 5. Lovenox 40 mg subcu daily. 6. Ertapenem 1 gm IV daily. 7. Lasix 40 mg. 8. Humalog. 9. Solu-Medrol 40 IV q6. 10. Levophed drip, just stopped. 11. Diprivan. 12. Desyrel. PHYSICAL EXAMINATION: On exam, the patient is mechanically sedated. Pulse 50. Blood pressure 123/67. Respiratory rate 24. Temperature normal. Pulse ox 94% on mechanical ventilation, vent settings are noted. FIO2 40%. HEENT: Conjunctivae normal. Oral mucosa moist. Neck: No JVD. No carotid bruit. No lymph node enlargement. CARDIOVASCULAR: S1, S2. Respiratory: Breath sounds diminished at the bases. A few scattered rhonchi and crackles. Abdomen soft , nontender. LEGS: No edema. No swelling. SENIOR BIOSTATISTICIAN/GROUP LEADER: The patient is mechanically sedated. LABS: WBC 11.7, other labs noted. Creatinine 2.44 which is improving. ASSESSMENT: 1. Severe sepsis secondary to ESBL E. coli, urinary tract infection present on admission. 2. Change in mental status, acute on chronic metabolic encephalopathy. 3. Acute hypoxic respiratory failure secondary to sepsis. 4. Increased WBC. 5. History of nicotine dependence. 6. Acute renal failure, possibly due to prerenal factors with possible chronic kidney disease, underlying Stage III. RECOMMENDATIONS AND DISCUSSION: Recommend to continue the current medications, continue symptomatic treatment, continue antibiotics. Monitor closely. Monitor fluid and electrolytes balance closely. Continue IV antibiotics. Further recommendations and wean per pulmonary. Further recommendations to follow. Discussed with staff. OMAR
[2017-03-03] MEDS: ENOXAPARIN 40 MG/0.4 ML SYRINGE SQ SCH (08:03)
[2017-03-03] MEDS: CHLORHEXIDINE GLUCONATE 15 ML CUP MUCOUS MEM SCH ×2 (08:03→21:08)
[2017-03-03] MEDS: FUROSEMIDE 40 MG TAB PO SCH (08:03)
[2017-03-03 08:20] LABS: ABG Base Excess 1.7 mmol/L; ABG HCO3 25 mmol/L (21-25); ABG PCO2 37 mmHg (35-45); ABG PH 7.45 (7.35-7.45); ABG PO2 99 mmHg (83-108); ABG TCO2 27 mmol/L (19-24)
[2017-03-03] MEDS: ERTAPENEM 1 GM in SODIUM CHLORIDE 0.9% 50 ML IVPB SCH (08:33)
--- NOTE | 2017-03-03 10:29 | P.PN ---
Subjective Principal diagnosis: Acute septic shock secondary to E. coli urinary tract infection. A 71-year-old male patient who was admitted yesterday through the emergency department because of nausea, diminished oral intake, generalized weakness and lethargy. The patient apparently had dropped his oral intake and he was feeling progressively more weak. Denied having any chest pain. No cough or sputum production. No abdominal pain or abdominal distention. The patient was felt to be septic of a urinary source. His white cell count was elevated at 28.5 and the patient was also in acute kidney injury. Lactic acid was nonelevated. The patient's urinalysis was significant abnormal with significant number of white cell count and bacteria and the urine itself was quite dirty. The Carrasco catheter was inserted. The patient was started on a combination of vancomycin and Zosyn and he was admitted to the medical floor. This afternoon, the patient became hypotensive and diaphoretic. His blood pressure dropped down to the 50s systolic. At the same time the patient became tachycardic with a heart rate of 120. He was also becoming progressively more lethargic. He was on 6 L oxygen nasal cannula and his pulse ox was around 94%. The patient was brought into the intensive care unit. A triple lumen catheter was inserted. The patient was on IV fluids and pressors. For now the patient is already received 1-1/2 L of IV fluid in the form of normal saline. Levo fed was also initiated at 10 mics initially and currently it's at 30 mics. Urine output is diminished at this point. The patient was subsequently intubated as the patient did not he felt to be awake enough to protect his airway and he be has becoming progressively more hypoxic. I intubated this patient and put him on a mechanical ventilator on assist control mode at the rate of 24, tidal volume 500, PEEP of 5 and FiO2 100%. The patient will have a blood gases and chest x-ray done and these are still pending for now. The patient is known to me. Of taking care of him during a recent bout of sepsis and respiratory failure. The patient came into the ICU last month unresponsive and he was and CO2 narcosis. He was also in acute respiratory failure. He was a shock on pressors. Echocardiogram back then showed an ejection fraction of 40-45% with secondary pulmonary hypertension. CT angios the chest showed no evidence of any pulmonary embolism and there was a tonic right-sided pleural effusion. The patient was ultimately stabilized. He was assumed to have a right lower lobe pneumonia which was treated. All of the cultures came back negative. He was extubated. His acute kidney injury recovered. He was discharged to [facility] on a course of Levaquin On 02/28/2017 the patient is being seen in a follow-up. As mentioned earlier, the patient has gone into respiratory failure due to a complicated urinary tract infection septic shock. He was also intubated and placed on a mechanical ventilator. This morning, his FiO2 is down to 40% with a PEEP of 5 and he has a tidal volume of 500 with a rate of 24. His chest x-ray shows a chronic right- sided pleural effusion and the ET tube is in a good location and the patient has a left subclavian triple-lumen catheter in place. Also, the blood gas shows a pH of 7.37 with a pCO2 of 40 and pO2 of 115. Hemodynamically, the patient has been adequately resuscitated IV fluids. The patient is currently off pressors. White cell count is down to 20.5. The patient has gram-negative bacilli in his blood. ID is on the case. He is a currently on a combination of Zosyn and Levaquin. Vancomycin was discontinued. The patient is producing adequate amount of urine output. He is still in acute kidney injury yet his is nonoliguric. He is producing adequate amount of urine output. Blood sugars under good control. We'll start low-grade/rate tube feeds on him today. I discussed the case with his brother the bedside. On 03/01/2017 the patient is being seen in follow-up. He remains on assist control mode of ventilation with a rate of 24, tidal volume of 500 with an FiO2 of 40% and PEEP of 5. Peak airway pressures around 30 to anesthetic pressures around 20 and on today's evaluation is slightly bronchospastic and wheezy. He was given a sedation holiday. The weaning parameters was checked was poor. He was given a brief this point is breathing trial if her support of 5 and a PEEP of 5 which she was unable to tolerate as the patient became tachypneic and tachycardic. The trial was aborted. The patient is off sedation for now. He is calm and comfortable. Hemodynamically stable. He is off pressors. Function is improving and creatinine is down to 3. White cell count is also improving. Is down to 18. The blood culture was positive for E. coli which is an ESBL producing organism. The patient is on Zosyn and Levaquin and I think this may need to be switched to an antibiotic that covers ESBL, probably Merrem and for that reason this will be discussed with infectious disease. We'll start tube feeds. Possibly no extubation today based on the fifth spontaneous breathing trial. We'll may try the same prosthetic and around 2:00. I came to realize that was felt to put the patient on breathing treatments after being on the mechanical ventilator. He is also known to have COPD. Patient was reevaluated today on 03/02/2017, remains on mechanical ventilation, vent settings are tidal volume of 500, assist control rate of 24 FiO2 of 40% and PEEP of 5. ABG showed a pO2 of 95 pCO2 of 37 pH of 7.41. Basic metabolic profile was relatively normal, however BUN is 70 creatinine is 2.44. Renal profile seems to be steadily improving over the last few days. Peak airway pressure is about 32 plateau pressures about 20. Patient is presently off pressors, however according to the nurses when he was weaned off sedation, he became extremely agitated and restless tachycardic and tachypneic. Hence he had to be placed back on propofol. Patient is now on ertapenem for ESBL producing organism/E. coli. Patient is also on nutritional support via enteral feeding. Chest x-ray was reviewed and there seems to be evidence of right basilar atelectasis, and possibly small or moderate pleural effusion on the right side. May eventually consider ultrasound guided thoracentesis if his chest x-ray does not show much improvement. Patient was reevaluated today on 03/03/2017, remains on mechanical ventilation, ventilator settings as noted above, unchanged, ABG reviewed pO2 of 99 pCO2 of 37 pH of 7.45. CBC is relatively unremarkable. Chest x-ray continues to show a significant amount of consolidation of the right lower lobe and possibly a right parapneumonic effusion. Renal profile was reviewed, sodium remains a bit elevated although the patient is receiving free water via nasogastric tube. Creatinine is improving, 1.96 today. BUN is 68. Patient is arousable, follows simple instructions shortly after sedation was placed on hold. However I'm waiting until he is more awake, and I would likely recommend a short trial using pressure support and CPAP. Objective - Vital Signs Vital signs: Vital Signs Temp 98.4 F 03/03/17 08:00 Pulse 79 03/03/17 10:00 Resp 25 H 03/03/17 10:00 BP 145/63 03/03/17 10:00 Pulse Ox 96 03/03/17 10:00 Intake & Output 03/02/17 03/03/17 03/03/17 18:59 06:59 18:59 Intake Total 6186.726 3048.268 432.535 Output Total 1670 1550 415 Balance -316.463 180.268 17.535 Weight 116.8 kg 115.2 kg Intake: IV 200 575 200 Ertapenem 1 gm In Sodium 50 Chloride 0.9% 50 ml @ 100 mls/hr IVPB Q24HR [facility] Rx #:[id number] Sodium Chloride 0.9% 1, 575 150 000 ml @ 50 mls/hr IV . Q20H [facility] Rx#:[id number] Sodium Chloride 0.9% 1, 200 000 ml @ 75 mls/hr IV . [id number] [facility] Rx#:[id number] Intake, IV Titration 593.537 225.268 62.535 Amount Propofol 1,000 mg In 100 193.537 175.268 62.535 ml @ Titrate IV .Q0M [facility] Rx#:[id number] Sodium Chloride 0.9% 1, 400 50 000 ml @ 50 mls/hr IV . Q20H [facility] Rx#:[id number] Tube Feeding 260 600 120 Other 300 330 50 Output: Urine 1670 1550 415 Stool 0 Other: Voiding Method Indwelling Catheter Indwelling Catheter Indwelling Catheter # Bowel Movements 0 0 ABP, PAP, CO, CI - Last Documented Arterial Blood Pressure 145/66 - Exam Physical Exam: Revealed a 71-year-old white male sedated, on mechanical ventilation. Endotracheal tube and orogastric tube seemed to be intact. HEENT:[Neck is supple.] [No neck masses.] [No thyromegaly.] [No JVD.] Chest: [Scattered rhonchi and wheezes bilaterally diminished at the bases Cardiac Exam: [Normal S1 and S2, no S3 gallop, no murmur.] Abdomen: [Soft, nontender, no megaly, no rebound, no guarding, normal bowel sounds.] Extremities: [No clubbing, no edema, no cyanosis.] Neurological Exam: Cannot be assessed, patient sedated on propofol drip] - Labs CBC & Chem 7: 03/03/17 05:00 03/03/17 05:00 Labs: Abnormal Lab Results - Last 24 Hours (Table) 03/02/17 03/02/17 03/02/17 Range/Units 12:11 12:16 17:40 Hgb (13.0-17.5) gm/dL Hct (39.0-53.0) % MCHC (31.0-37.0) g/dL RDW (11.5-15.5) % Neutrophils # (1.3-7.7) k/uL Lymphocytes # (1.0-4.8) k/uL INR (<1.2) ABG Total CO2 (19-24) mmol/L ABG O2 Saturation (94-97) % Sodium (137-145) mmol/L Chloride (98-107) mmol/L BUN (9-20) mg/dL Creatinine (0.66-1.25) mg/dL Glucose (74-99) mg/dL POC Glucose (mg/dL) 45 L 136 H 147 H (75-99) mg/dL Calcium (8.4-10.2) mg/dL Magnesium (1.6-2.3) mg/dL AST (17-59) U/L Total Protein (6.3-8.2) g/dL Albumin (3.5-5.0) g/dL 03/03/17 03/03/17 03/03/17 Range/Units 01:17 01:18 05:00 Hgb 11.4 L (13.0-17.5) gm/dL Hct 38.4 L (39.0-53.0) % MCHC 29.8 L (31.0-37.0) g/dL RDW 17.9 H (11.5-15.5) % Neutrophils # 8.9 H (1.3-7.7) k/uL Lymphocytes # 0.6 L (1.0-4.8) k/uL INR (<1.2) ABG Total CO2 (19-24) mmol/L ABG O2 Saturation (94-97) % Sodium (137-145) mmol/L Chloride (98-107) mmol/L BUN (9-20) mg/dL Creatinine (0.66-1.25) mg/dL Glucose (74-99) mg/dL POC Glucose (mg/dL) 23 L 129 H (75-99) mg/dL Calcium (8.4-10.2) mg/dL Magnesium (1.6-2.3) mg/dL AST (17-59) U/L Total Protein (6.3-8.2) g/dL Albumin (3.5-5.0) g/dL 03/03/17 03/03/17 03/03/17 Range/Units 05:00 05:00 05:30 Hgb (13.0-17.5) gm/dL Hct (39.0-53.0) % MCHC (31.0-37.0) g/dL RDW (11.5-15.5) % Neutrophils # (1.3-7.7) k/uL Lymphocytes # (1.0-4.8) k/uL INR 1.2 H (<1.2) ABG Total CO2 (19-24) mmol/L ABG O2 Saturation (94-97) % Sodium 149 H (137-145) mmol/L Chloride 113 H (98-107) mmol/L BUN 68 H (9-20) mg/dL Creatinine 1.96 H (0.66-1.25) mg/dL Glucose 143 H (74-99) mg/dL POC Glucose (mg/dL) 175 H (75-99) mg/dL Calcium 8.0 L (8.4-10.2) mg/dL Magnesium 2.4 H (1.6-2.3) mg/dL AST 16 L (17-59) U/L Total Protein 4.9 L (6.3-8.2) g/dL Albumin 2.4 L (3.5-5.0) g/dL 03/03/17 Range/Units 08:13 Hgb (13.0-17.5) gm/dL Hct (39.0-53.0) % MCHC (31.0-37.0) g/dL RDW (11.5-15.5) % Neutrophils # (1.3-7.7) k/uL Lymphocytes # (1.0-4.8) k/uL INR (<1.2) ABG Total CO2 27 H (19-24) mmol/L ABG O2 Saturation 98.0 H (94-97) % Sodium (137-145) mmol/L Chloride (98-107) mmol/L BUN (9-20) mg/dL Creatinine (0.66-1.25) mg/dL Glucose (74-99) mg/dL POC Glucose (mg/dL) (75-99) mg/dL Calcium (8.4-10.2) mg/dL Magnesium (1.6-2.3) mg/dL AST (17-59) U/L Total Protein (6.3-8.2) g/dL Albumin (3.5-5.0) g/dL Microbiology - Last 24 Hours (Table) 02/28/17 10:50 Blood Culture - Preliminary Blood No Growth after 48 hours 02/27/17 23:22 Gram Stain - Final Sputum Sputum Culture - Final Demi albicans Demi glabrata Assessment and Plan Plan: 1 septic shock secondary to a E. coli urinary tract infection. The patient has been adequately resuscitated with IV fluids. The patient's blood pressure is normalized and currently is off pressors. It is an ESBL producing organism. Patient is already on ertapenem. 2 shock secondary to above. This is septic shock. 3 E. coli sepsis secondary to a urinary tract infection 4 acute respiratory failure secondary to above. Currently intubated on mechanical ventilator. The patient is broken spastic and wheezy on today's evaluation. He'll be started on DuoNeb nebulized treatments and steroids. 5 chronic right-sided pleural effusion small to moderate in size, patient will have ultrasound today, if the fluid is large enough and freely moving, may consider thoracentesis. 6 Obesity 7 acute kidney injury, improving 8 chronic psychiatric disorder and the patient has been maintained on multiple psychotropic medication including Abilify, trazodone, Cogentin and Lamictal on outpatient basis. He has underlying PTSD/bipolar disorder/depression 9 COPD 10 [facility] 11 hypertension 12 hyperlipidemia 13 chronic smoker 14 preserved LV function based on recent echocardiogram with an ejection fraction of 40% Recommendation: Sedation will be kept on hold for now, patient seems to be appropriate, if he continues to remain appropriate and not agitated, may consider even a weaning trial using pressure support and CPAP. Ultrasound of the chest was ordered, and it is pending at the time of this dictation. In the meantime continue antibiotics, bronchodilators, fluids, GI and DVT prophylaxis. Prognosis remains poor and guarded, we'll continue to follow. Critical care time is 35 minutes. Time with Patient: Greater than 30
--- NOTE | 2017-03-03 10:31 | US ---
EXAMINATION TYPE: US chest DATE OF EXAM: 03/03/2017 COMPARISON: NONE CLINICAL HISTORY: Markings for thoracentesis by pulmonary staff. EXAM MEASUREMENTS: Right Pleural Effusion fluid pocket: 4.9 cm Right skin to fluid thickness: 4.8 cm Left Pleural Effusion fluid pocket: 1.7 cm Left skin to fluid thickness: 3.1 cm Right side NOT marked for possible thoracentesis outside the dept. Left side marked for possible thoracentesis outside the dept. Pulmonologists are able to review the images in the patient?s EMR. IMPRESSIONS: Pleural effusions as noted.
--- NOTE | 2017-03-03 11:43 | P.PN ---
Subjective Patient is seen in follow-up for acute kidney injury. Renal function is improving with creatinine down to 1.96 today. Baseline creatinine is 1. He remains nonoliguric. Currently intubated and sedated. Patient presented with hypotension along with generalized weakness. He was noted to be in septic shock with urine and blood culture positive for E. coli. His sputum culture is positive for Demi and yeast species. He is maintained on IV antibiotics. Sodium level elevated at 149 today. Currently maintained on tube feeds. Vital signs are stable. General: Intubated. HEENT: Head exam is unremarkable. Neck is without jugular venous distension. LUNGS: Scattered rhonchi. Breath sounds decreased. HEART: Rate and Rhythm are regular. First and second heart sounds normal. No murmurs, rubs or gallops. ABDOMEN: Abdominal exam reveals normal bowel sounds. Non-tender and non- distended. EXTREMITITES: Trace edema. Objective - Vital Signs Vital signs: Vital Signs Temp 98.4 F 03/03/17 08:00 Pulse 67 03/03/17 11:31 Resp 25 H 03/03/17 11:00 BP 148/64 03/03/17 11:00 Pulse Ox 97 03/03/17 11:00 Intake & Output 03/02/17 03/03/17 03/03/17 18:59 06:59 18:59 Intake Total 5353.487 4599.268 572.535 Output Total 1670 1550 915 Balance -316.463 180.268 -342.465 Weight 116.8 kg 115.2 kg Intake: IV 200 575 300 Ertapenem 1 gm In Sodium 50 Chloride 0.9% 50 ml @ 100 mls/hr IVPB Q24HR [facility] Rx #:[id number] Sodium Chloride 0.9% 1, 575 250 000 ml @ 50 mls/hr IV . Q20H [facility] Rx#:[id number] Sodium Chloride 0.9% 1, 200 000 ml @ 75 mls/hr IV . [id number] [facility] Rx#:[id number] Intake, IV Titration 593.537 225.268 62.535 Amount Propofol 1,000 mg In 100 193.537 175.268 62.535 ml @ Titrate IV .Q0M [facility] Rx#:[id number] Sodium Chloride 0.9% 1, 400 50 000 ml @ 50 mls/hr IV . Q20H [facility] Rx#:[id number] Tube Feeding 260 600 160 Other 300 330 50 Output: Urine 1670 1550 915 Stool 0 Other: Voiding Method Indwelling Catheter Indwelling Catheter Indwelling Catheter # Bowel Movements 0 0 ABP, PAP, CO, CI - Last Documented Arterial Blood Pressure 145/66 - Labs CBC & Chem 7: 03/03/17 05:00 03/03/17 05:00 Labs: Abnormal Lab Results - Last 24 Hours (Table) 03/02/17 03/02/17 03/02/17 Range/Units 12:11 12:16 17:40 Hgb (13.0-17.5) gm/dL Hct (39.0-53.0) % MCHC (31.0-37.0) g/dL RDW (11.5-15.5) % Neutrophils # (1.3-7.7) k/uL Lymphocytes # (1.0-4.8) k/uL INR (<1.2) ABG Total CO2 (19-24) mmol/L ABG O2 Saturation (94-97) % Sodium (137-145) mmol/L Chloride (98-107) mmol/L BUN (9-20) mg/dL Creatinine (0.66-1.25) mg/dL Glucose (74-99) mg/dL POC Glucose (mg/dL) 45 L 136 H 147 H (75-99) mg/dL Calcium (8.4-10.2) mg/dL Magnesium (1.6-2.3) mg/dL AST (17-59) U/L Total Protein (6.3-8.2) g/dL Albumin (3.5-5.0) g/dL 03/03/17 03/03/17 03/03/17 Range/Units 01:17 01:18 05:00 Hgb 11.4 L (13.0-17.5) gm/dL Hct 38.4 L (39.0-53.0) % MCHC 29.8 L (31.0-37.0) g/dL RDW 17.9 H (11.5-15.5) % Neutrophils # 8.9 H (1.3-7.7) k/uL Lymphocytes # 0.6 L (1.0-4.8) k/uL INR (<1.2) ABG Total CO2 (19-24) mmol/L ABG O2 Saturation (94-97) % Sodium (137-145) mmol/L Chloride (98-107) mmol/L BUN (9-20) mg/dL Creatinine (0.66-1.25) mg/dL Glucose (74-99) mg/dL POC Glucose (mg/dL) 23 L 129 H (75-99) mg/dL Calcium (8.4-10.2) mg/dL Magnesium (1.6-2.3) mg/dL AST (17-59) U/L Total Protein (6.3-8.2) g/dL Albumin (3.5-5.0) g/dL 03/03/17 03/03/17 03/03/17 Range/Units 05:00 05:00 05:30 Hgb (13.0-17.5) gm/dL Hct (39.0-53.0) % MCHC (31.0-37.0) g/dL RDW (11.5-15.5) % Neutrophils # (1.3-7.7) k/uL Lymphocytes # (1.0-4.8) k/uL INR 1.2 H (<1.2) ABG Total CO2 (19-24) mmol/L ABG O2 Saturation (94-97) % Sodium 149 H (137-145) mmol/L Chloride 113 H (98-107) mmol/L BUN 68 H (9-20) mg/dL Creatinine 1.96 H (0.66-1.25) mg/dL Glucose 143 H (74-99) mg/dL POC Glucose (mg/dL) 175 H (75-99) mg/dL Calcium 8.0 L (8.4-10.2) mg/dL Magnesium 2.4 H (1.6-2.3) mg/dL AST 16 L (17-59) U/L Total Protein 4.9 L (6.3-8.2) g/dL Albumin 2.4 L (3.5-5.0) g/dL 03/03/17 Range/Units 08:13 Hgb (13.0-17.5) gm/dL Hct (39.0-53.0) % MCHC (31.0-37.0) g/dL RDW (11.5-15.5) % Neutrophils # (1.3-7.7) k/uL Lymphocytes # (1.0-4.8) k/uL INR (<1.2) ABG Total CO2 27 H (19-24) mmol/L ABG O2 Saturation 98.0 H (94-97) % Sodium (137-145) mmol/L Chloride (98-107) mmol/L BUN (9-20) mg/dL Creatinine (0.66-1.25) mg/dL Glucose (74-99) mg/dL POC Glucose (mg/dL) (75-99) mg/dL Calcium (8.4-10.2) mg/dL Magnesium (1.6-2.3) mg/dL AST (17-59) U/L Total Protein (6.3-8.2) g/dL Albumin (3.5-5.0) g/dL Microbiology - Last 24 Hours (Table) 02/28/17 10:50 Blood Culture - Preliminary Blood No Growth after 48 hours 02/27/17 23:22 Gram Stain - Final Sputum Sputum Culture - Final Demi albicans Demi glabrata Assessment and Plan Plan: Assessment: #1. Nonoliguric acute kidney injury secondary to ischemic ATN secondary to septic shock. Creatinine peaked at 3.8 this admission and is down to 1.96 today. Baseline creatinine is near 1. #2. Septic shock secondary to E. coli bacteremia and UTI. Sputum culture positive for Demi yeast be she's. #3. Hypotension secondary to septic shock. Improved. #4. Metabolic acidosis secondary to acute kidney injury and IV fluids. #5. Hypernatremia secondary to lack of oral water intake. Plan: Hep-Lock IV fluids. Maintain tube feeds. Increase free water flushes to 400 mL every 4 hours. Avoid nephrotoxic agents and hypotensive episodes. Continue to monitor renal function and urine output. No need for renal replacement therapy at this time. Abx per ID reccs. Wean FiO2. Continue lasix 40 mg daily.
[2017-03-03 12:06] LABS: Glucose,Whole Blood 142 mg/dL (75-99)
--- NOTE | 2017-03-03 17:33 | P.PN ---
Subjective Date of service 03/03/2017. Personal being dictated for Dr. Curry. Interval history: This a 71-year-old gentleman admitted with severe sepsis secondary to ESBL bacteremia,UTI, acute on chronic metabolic encephalopathy, acute hypoxic respiratory failure and acute renal failure and multiple other medical issues. Off pressors. Maintained on mechanical ventilation of 40% FiO2/ +5 of PEEP. Suctioning tenacious white secretions from endotracheal tube .Yesterday tolerated initial CPAP for about 15 minutes, today tolerated longer for nearly an hour and then became tachycardic; returned to mechanical ventilation. Tolerating tube feeds at goal with minimal to no residuals. Sodium elevated at 149, water flushes increased. Renal function improving. Chest x-ray reporting persistent airspace consolidation right lower lobe with associated pleural effusions without failure. Ultrasound of chest performed with left-sided Marked for potential thoracentesis. Review of systems unable to obtain as patient intubated, on mechanical ventilation. Active Medications Albuterol/Ipratropium (Duoneb 0.5 Mg-3 Mg/3 Ml Soln) 3 ml INHALATION RT-QID [facility] Last Admin: 03/03/17 15:25 Dose: 3 ml Atorvastatin Calcium (Lipitor) 20 mg PO HS [facility] Last Admin: 03/02/17 20:15 Dose: 20 mg Benztropine Mesylate (Cogentin) 2 mg PO HS [facility] Last Admin: 03/02/17 20:15 Dose: 2 mg Chlorhexidine Gluconate (Peridex) 15 ml MUCOUS MEM BID [facility] Last Admin: 03/03/17 08:03 Dose: 15 ml Enoxaparin Sodium (Lovenox) 40 mg SQ DAILY [facility] Last Admin: 03/03/17 08:03 Dose: 40 mg Furosemide (Lasix) 40 mg PO DAILY [facility] Last Admin: 03/03/17 08:03 Dose: 40 mg Norepinephrine Bitartrate (Levophed-0.9% Nacl 16 Mg/250ml Pmx) 16 mg in 250 mls @ 0 mls/hr IV .Q0M [facility]; Titrate PRN Reason: Protocol Last Titration: 02/28/17 08:30 Dose: 0 mcg/min, 0 mls/hr Propofol (Diprivan) 1,000 mg in 100 mls @ 0 mls/hr IV .Q0M [facility]; Titrate PRN Reason: Protocol Last Admin: 03/03/17 16:49 Dose: 15 mcg/kg/min, 10.71 mls/hr Ertapenem 1 gm/ Sodium (Chloride) 50 mls @ 100 mls/hr IVPB Q24HR [facility] Last Admin: 03/03/17 08:33 Dose: 100 mls/hr Sodium Chloride (Saline 0.9%) 1,000 mls @ 20 mls/hr IV .Q24H [facility] Last Admin: 03/03/17 16:49 Dose: 10 mls/hr Insulin Human Lispro (Humalog) 0 unit SQ Q6H [facility] PRN Reason: Protocol Last Admin: 03/03/17 12:07 Dose: 1 unit Methylprednisolone Sodium Succinate (Solu-Medrol) 40 mg IV Q6HR [facility] Last Admin: 03/03/17 12:07 Dose: 40 mg Miscellaneous Information (Potassium Per Protocol) 1 each MISCELLANE DAILY PRN ; Protocol PRN Reason: Per Protocol Naloxone HCl (Narcan) 0.2 mg IV Q2M PRN PRN Reason: Opioid Reversal Potassium Chloride (Potassium Chloride Oral Liquid) 20 meq NG-TUBE Q1HR [facility] Stop: 03/03/17 18:01 Trazodone HCl (Desyrel) 100 mg PO HS [facility] Last Admin: 03/02/17 20:16 Dose: 100 mg Objective - Vital Signs Vital signs: Vital Signs Temp 98.0 F 03/03/17 16:00 Pulse 68 03/03/17 17:00 Resp 24 03/03/17 17:00 BP 138/60 03/03/17 17:00 Pulse Ox 98 03/03/17 17:00 Intake & Output 03/02/17 03/03/17 03/03/17 18:59 06:59 18:59 Intake Total 7304.502 1855.268 1722.535 Output Total 1670 1550 2100 Balance -316.463 180.268 -377.465 Weight 116.8 kg 115.2 kg Intake: IV 200 575 410 Ertapenem 1 gm In Sodium 50 Chloride 0.9% 50 ml @ 100 mls/hr IVPB Q24HR [facility] Rx #:[id number] Sodium Chloride 0.9% 1, 575 360 000 ml @ 20 mls/hr IV . Q24H [facility] Rx#:[id number] Sodium Chloride 0.9% 1, 200 000 ml @ 75 mls/hr IV . [id number] [facility] Rx#:[id number] Intake, IV Titration 593.537 225.268 62.535 Amount Propofol 1,000 mg In 100 193.537 175.268 62.535 ml @ Titrate IV .Q0M [facility] Rx#:[id number] Sodium Chloride 0.9% 1, 400 50 000 ml @ 20 mls/hr IV . Q24H [facility] Rx#:[id number] Tube Feeding 260 600 400 Other 300 330 850 Output: Urine 1670 1550 2100 Stool 0 Other: Voiding Method Indwelling Catheter Indwelling Catheter Indwelling Catheter # Bowel Movements 0 1 ABP, PAP, CO, CI - Last Documented Arterial Blood Pressure 145/66 - Exam PHYSICAL EXAM: VITAL SIGNS: As above GENERAL: [Sitting up in bed, intubated, sedated, HEENT: [Pupils equal conjunctiva normal.] NECK: [Supple, no JVD] RESPIRATORY EFFORT:[ Normal] LUNGS: [Diminished, expiratory wheezes, scattered rhonchi] CARDIOVASCULAR[ regular S1 and S2, occasionally bradycardic, no murmurs rubs or gallop, mild edema] GI: [Abdomen soft, nontender, positive bowel sounds.] PSYCH/NEURO: Currently unable to assess as patient intubated, on mechanical ventilation and sedated on DIprovan.. Microbiology 02/28/17 10:50 Blood Blood Culture - Preliminary No Growth after 72 hours 02/27/17 23:22 Sputum Gram Stain - Final 02/27/17 23:22 Sputum Sputum Culture - Final Demi albicans Demi glabrata 02/27/17 12:01 Blood Blood Culture Gram Stain - Final 02/27/17 12:01 Blood Blood Culture - Final Escherichia coli 02/26/17 22:35 Urine,Voided Urine Culture - Final Escherichia coli 02/26/17 19:05 Blood Blood Culture Gram Stain - Final 02/26/17 19:05 Blood Blood Culture - Final Escherichia coli 02/26/17 19:05 Blood Blood Culture Gram Stain - Final 02/26/17 19:05 Blood Blood Culture - Final Escherichia coli 02/27/17 12:01 Blood Blood Culture - Final 02/26/17 19:05 Blood Blood Culture - Final 02/26/17 19:05 Blood Blood Culture - Final - Labs CBC & Chem 7: 03/03/17 05:00 08/15/17 12:17 Labs: Abnormal Lab Results - Last 24 Hours (Table) 03/02/17 03/03/17 03/03/17 Range/Units 17:40 01:17 01:18 Hgb (13.0-17.5) gm/dL Hct (39.0-53.0) % MCHC (31.0-37.0) g/dL RDW (11.5-15.5) % Neutrophils # (1.3-7.7) k/uL Lymphocytes # (1.0-4.8) k/uL INR (<1.2) ABG Total CO2 (19-24) mmol/L ABG O2 Saturation (94-97) % Sodium (137-145) mmol/L Chloride (98-107) mmol/L BUN (9-20) mg/dL Creatinine (0.66-1.25) mg/dL Glucose (74-99) mg/dL POC Glucose (mg/dL) 147 H 23 L 129 H (75-99) mg/dL Calcium (8.4-10.2) mg/dL Magnesium (1.6-2.3) mg/dL AST (17-59) U/L Total Protein (6.3-8.2) g/dL Albumin (3.5-5.0) g/dL 03/03/17 03/03/17 03/03/17 Range/Units 05:00 05:00 05:00 Hgb 11.4 L (13.0-17.5) gm/dL Hct 38.4 L (39.0-53.0) % MCHC 29.8 L (31.0-37.0) g/dL RDW 17.9 H (11.5-15.5) % Neutrophils # 8.9 H (1.3-7.7) k/uL Lymphocytes # 0.6 L (1.0-4.8) k/uL INR 1.2 H (<1.2) ABG Total CO2 (19-24) mmol/L ABG O2 Saturation (94-97) % Sodium 149 H (137-145) mmol/L Chloride 113 H (98-107) mmol/L BUN 68 H (9-20) mg/dL Creatinine 1.96 H (0.66-1.25) mg/dL Glucose 143 H (74-99) mg/dL POC Glucose (mg/dL) (75-99) mg/dL Calcium 8.0 L (8.4-10.2) mg/dL Magnesium 2.4 H (1.6-2.3) mg/dL AST 16 L (17-59) U/L Total Protein 4.9 L (6.3-8.2) g/dL Albumin 2.4 L (3.5-5.0) g/dL 03/03/17 03/03/17 03/03/17 Range/Units 05:30 08:13 12:04 Hgb (13.0-17.5) gm/dL Hct (39.0-53.0) % MCHC (31.0-37.0) g/dL RDW (11.5-15.5) % Neutrophils # (1.3-7.7) k/uL Lymphocytes # (1.0-4.8) k/uL INR (<1.2) ABG Total CO2 27 H (19-24) mmol/L ABG O2 Saturation 98.0 H (94-97) % Sodium (137-145) mmol/L Chloride (98-107) mmol/L BUN (9-20) mg/dL Creatinine (0.66-1.25) mg/dL Glucose (74-99) mg/dL POC Glucose (mg/dL) 175 H 142 H (75-99) mg/dL Calcium (8.4-10.2) mg/dL Magnesium (1.6-2.3) mg/dL AST (17-59) U/L Total Protein (6.3-8.2) g/dL Albumin (3.5-5.0) g/dL Microbiology - Last 24 Hours (Table) 02/28/17 10:50 Blood Culture - Preliminary Blood No Growth after 72 hours Assessment and Plan Plan: 1. Severe sepsis , septic shock secondary to bacteremia and UTI with ESBL present on admission. 2. [ Change in mental status, acute on chronic metabolic encephalopathy]. 3. [ Acute hypoxic respiratory failure secondary to sepsis]. 4. [Acute renal failure, possibly due to prerenal factors with possible chronic kidney disease, stage III 5. [ Hypernatremia Plan: Continue on current medication regime, ertapenem, nebulized bronchodilators, steroids monitoring and symptomatic treatment. Pulmonary discussing attempting CPAP weaning trials again later this afternoon. Potential thoracentesis, chest marked per ultrasound as mentioned above. Follow closely with multiple consults. Further recommendations to follow. The impression and plan of care has been dictated as directed. : I performed a H&P examination of this patient and discussed the same with the dictator. I agree with the dictator's note. Any additional findings/opinions/ etc. will be noted.
[2017-03-03 17:56] LABS: Glucose,Whole Blood 127 mg/dL (75-99)
--- NOTE | 2017-03-03 21:07 | P.PN ---
Subjective Principal diagnosis: Respiratory failure 71-year-old male who is known to the pulmonary service from his hospitalization last month which point in time he had a bout of respiratory failure requiring intubation and mechanical ventilation and antibiotic therapy. Eventually improved and was discharged to [facility]. Was treated with a course of antibiotics of levofloxacin. Currently was doing well until the patient in the last day before admission became considerably more week. He was not having significant other symptoms except his profound weakness. He Was Brought to the Emergency Center Where He Was Found Evidence an Extensive Leukocytosis. Within Hours of Admission He Became Worse. He Developed Significant Hypotension and Tachycardia. Because of This He Was Transferred to the Intensive Care Unit. He Became More Hypotensive despite Fluids and Required Vasopressor Therapy. Respiratory Failure Occurred and He Required Intubation and Sedation Mechanical Ventilation. Patient remains sedated and ventilated at this time. He is however off of vasopressor therapy. Weaning is in progress Objective - Vital Signs Vital signs: Vital Signs Temp 98.0 F 03/03/17 16:00 Pulse 72 03/03/17 19:59 Resp 31 H 03/03/17 19:00 BP 145/64 03/03/17 19:00 Pulse Ox 97 03/03/17 19:00 Intake & Output 03/03/17 03/03/17 03/04/17 06:59 18:59 06:59 Intake Total 6863.191 6295.535 60 Output Total 1550 2325 235 Balance 180.268 -542.465 -175 Weight 115.2 kg Intake: IV 575 430 20 Ertapenem 1 gm In Sodium 50 Chloride 0.9% 50 ml @ 100 mls/hr IVPB Q24HR [facility] Rx #:[id number] Sodium Chloride 0.9% 1, 575 380 20 000 ml @ 20 mls/hr IV . Q24H [facility] Rx#:[id number] Intake, IV Titration 225.268 62.535 Amount Propofol 1,000 mg In 100 175.268 62.535 ml @ Titrate IV .Q0M [facility] Rx#:[id number] Sodium Chloride 0.9% 1, 50 000 ml @ 20 mls/hr IV . Q24H [facility] Rx#:[id number] Tube Feeding 600 440 40 Other 330 850 Output: Urine 1550 2325 235 Other: Voiding Method Indwelling Catheter Indwelling Catheter # Bowel Movements 0 1 ABP, PAP, CO, CI - Last Documented Arterial Blood Pressure 145/66 - Exam 71-year-old male intubated sedated and mechanically ventilated HEENT: Anicteric conjunctiva are pink and moist nasal mucosa grossly intact without significant lesions, there is no thrush. Edentulous Neck: The neck is supple without significant lymphadenopathy or thyromegaly. Lungs: There are symmetrical air entry. basilar crackles are heard. Expiratory wheezes. Heart: Regular rate and rhythm with an audible S1-S2, no S3 loud S4 There is no significant murmur click or rub, PMI was nondisplaced. Abdomen: Positive bowel sounds soft and nontender without palpable masses or organomegaly. There was no guarding or rebound. Extremities: The upper and fluctuance have mild generalized edema. Extremities are cool to touch. ulcerations are seen. Neuro: Sedated and mechanically ventilated. - Labs CBC & Chem 7: 03/03/17 05:00 03/03/17 12:17 Labs: Abnormal Lab Results - Last 24 Hours (Table) 03/03/17 03/03/17 03/03/17 Range/Units 01:17 01:18 05:00 Hgb 11.4 L (13.0-17.5) gm/dL Hct 38.4 L (39.0-53.0) % MCHC 29.8 L (31.0-37.0) g/dL RDW 17.9 H (11.5-15.5) % Neutrophils # 8.9 H (1.3-7.7) k/uL Lymphocytes # 0.6 L (1.0-4.8) k/uL INR (<1.2) ABG Total CO2 (19-24) mmol/L ABG O2 Saturation (94-97) % Sodium (137-145) mmol/L Chloride (98-107) mmol/L BUN (9-20) mg/dL Creatinine (0.66-1.25) mg/dL Glucose (74-99) mg/dL POC Glucose (mg/dL) 23 L 129 H (75-99) mg/dL Calcium (8.4-10.2) mg/dL Magnesium (1.6-2.3) mg/dL AST (17-59) U/L Total Protein (6.3-8.2) g/dL Albumin (3.5-5.0) g/dL 03/03/17 03/03/17 03/03/17 Range/Units 05:00 05:00 05:30 Hgb (13.0-17.5) gm/dL Hct (39.0-53.0) % MCHC (31.0-37.0) g/dL RDW (11.5-15.5) % Neutrophils # (1.3-7.7) k/uL Lymphocytes # (1.0-4.8) k/uL INR 1.2 H (<1.2) ABG Total CO2 (19-24) mmol/L ABG O2 Saturation (94-97) % Sodium 149 H (137-145) mmol/L Chloride 113 H (98-107) mmol/L BUN 68 H (9-20) mg/dL Creatinine 1.96 H (0.66-1.25) mg/dL Glucose 143 H (74-99) mg/dL POC Glucose (mg/dL) 175 H (75-99) mg/dL Calcium 8.0 L (8.4-10.2) mg/dL Magnesium 2.4 H (1.6-2.3) mg/dL AST 16 L (17-59) U/L Total Protein 4.9 L (6.3-8.2) g/dL Albumin 2.4 L (3.5-5.0) g/dL 03/03/17 03/03/17 03/03/17 Range/Units 08:13 12:04 17:55 Hgb (13.0-17.5) gm/dL Hct (39.0-53.0) % MCHC (31.0-37.0) g/dL RDW (11.5-15.5) % Neutrophils # (1.3-7.7) k/uL Lymphocytes # (1.0-4.8) k/uL INR (<1.2) ABG Total CO2 27 H (19-24) mmol/L ABG O2 Saturation 98.0 H (94-97) % Sodium (137-145) mmol/L Chloride (98-107) mmol/L BUN (9-20) mg/dL Creatinine (0.66-1.25) mg/dL Glucose (74-99) mg/dL POC Glucose (mg/dL) 142 H 127 H (75-99) mg/dL Calcium (8.4-10.2) mg/dL Magnesium (1.6-2.3) mg/dL AST (17-59) U/L Total Protein (6.3-8.2) g/dL Albumin (3.5-5.0) g/dL Microbiology - Last 24 Hours (Table) 02/28/17 10:50 Blood Culture - Preliminary Blood No Growth after 72 hours Laboratory Results WBC 10.3 k/uL (3.8-10.6) 03/03/17 05:00 RBC 4.55 m/uL (4.30-5.90) 03/03/17 05:00 Hgb 11.4 gm/dL (13.0-17.5) L 03/03/17 05:00 Hct 38.4 % (39.0-53.0) L 03/03/17 05:00 MCV 84.4 fL (80.0-100.0) 03/03/17 05:00 MCH 25.2 pg (25.0-35.0) 03/03/17 05:00 MCHC 29.8 g/dL (31.0-37.0) L 03/03/17 05:00 RDW 17.9 % (11.5-15.5) H 03/03/17 05:00 Plt Count 176 k/uL (150-450) 03/03/17 05:00 Neutrophils % 87 % 03/03/17 05:00 Lymphocytes % 5 % 03/03/17 05:00 Monocytes % 6 % 03/03/17 05:00 Eosinophils % 0 % 03/03/17 05:00 Basophils % 0 % 03/03/17 05:00 Neutrophils # 8.9 k/uL (1.3-7.7) H 03/03/17 05:00 Lymphocytes # 0.6 k/uL (1.0-4.8) L 03/03/17 05:00 Monocytes # 0.6 k/uL (0-1.0) 03/03/17 05:00 Eosinophils # 0.0 k/uL (0-0.7) 03/03/17 05:00 Basophils # 0.0 k/uL (0-0.2) 03/03/17 05:00 Hypochromasia Marked 03/03/17 05:00 Anisocytosis Slight 03/03/17 05:00 PT 11.5 sec (9.0-12.0) 03/03/17 05:00 INR 1.2 (<1.2) H 03/03/17 05:00 APTT 27.0 sec (22.0-30.0) 02/26/17 19:05 D-Dimer 4.65 mg/L FEU (<0.60) H 02/26/17 19:05 Sample Site LRAD 03/03/17 08:13 ABG pH 7.45 (7.35-7.45) 03/03/17 08:13 ABG pCO2 37 mmHg (35-45) 03/03/17 08:13 ABG pO2 99 mmHg (83-108) 03/03/17 08:13 ABG HCO3 25 mmol/L (21-25) 03/03/17 08:13 ABG Total CO2 27 mmol/L (19-24) H 03/03/17 08:13 ABG O2 Saturation 98.0 % (94-97) H 03/03/17 08:13 ABG Base Excess 1.7 mmol/L 03/03/17 08:13 FiO2 40 % 03/03/17 08:13 Sodium 149 mmol/L (137-145) H 03/03/17 05:00 Potassium 3.8 mmol/L (3.5-5.1) 03/03/17 12:17 Chloride 113 mmol/L (98-107) H 03/03/17 05:00 Carbon Dioxide 27 mmol/L (22-30) 03/03/17 05:00 Anion Gap 9 mmol/L 03/03/17 05:00 BUN 68 mg/dL (9-20) H 03/03/17 05:00 Creatinine 1.96 mg/dL (0.66-1.25) H 03/03/17 05:00 Est GFR (MDRD) Af Amer 41 (>60 ml/min/1.73 sqM) 03/03/17 05:00 Est GFR (MDRD) Non-Af 34 (>60 ml/min/1.73 sqM) 03/03/17 05:00 Glucose 143 mg/dL (74-99) H 03/03/17 05:00 POC Glucose (mg/dL) 127 mg/dL (75-99) H 03/03/17 17:55 POC Glu [employer] ID Cally Garcia 03/03/17 17:55 Lactic Ac Sepsis Rflx Y 02/26/17 19:53 Plasma Lactic Acid Ezequiel 1.1 mmol/L (0.7-2.0) 02/27/17 17:06 Calcium 8.0 mg/dL (8.4-10.2) L 03/03/17 05:00 Phosphorus 4.0 mg/dL (2.5-4.5) 03/03/17 05:00 Magnesium 2.4 mg/dL (1.6-2.3) H 03/03/17 05:00 Total Bilirubin 0.3 mg/dL (0.2-1.3) 03/03/17 05:00 AST 16 U/L (17-59) L 03/03/17 05:00 ALT 28 U/L (21-72) 03/03/17 05:00 Alkaline Phosphatase 80 U/L (38-126) 03/03/17 05:00 Total Creatine Kinase 39 U/L (55-170) L 02/26/17 19:05 CK-MB (CK-2) 0.6 ng/mL (0.0-2.4) 02/26/17 19:05 CK-MB (CK-2) Rel Index 1.5 02/26/17 19:05 Troponin I 0.210 ng/mL (0.000-0.034) H* 02/26/17 19:05 NT-Pro-B Natriuret Pep 96842 pg/mL 02/26/17 19:05 Total Protein 4.9 g/dL (6.3-8.2) L 03/03/17 05:00 Albumin 2.4 g/dL (3.5-5.0) L 03/03/17 05:00 Urine Color Yellow 02/26/17 22:35 Urine Appearance Turbid (Clear) 02/26/17 22:35 Urine pH 5.5 (5.0-8.0) 02/26/17 22:35 Ur Specific [place] 1.015 (1.001-1.035) 02/26/17 22:35 Urine Protein 2+ (Negative) H 02/26/17 22:35 Urine Glucose (UA) Negative (Negative) 02/26/17 22:35 Urine Ketones Negative (Negative) 02/26/17 22:35 Urine Blood Moderate (Negative) H 02/26/17 22:35 Urine Nitrite Negative (Negative) 02/26/17 22:35 Urine Bilirubin Negative (Negative) 02/26/17 22:35 Urine Urobilinogen <2.0 mg/dL (<2.0) 02/26/17 22:35 Ur Leukocyte Esterase Large (Negative) H 02/26/17 22:35 Urine RBC 19 /hpf (0-5) H 02/26/17 22:35 Urine WBC >182 /hpf (0-5) H 02/26/17 22:35 Urine WBC Clumps Occasional /hpf (None) H 02/26/17 22:35 Ur Squamous Epith Cells 1 /hpf (0-4) 02/26/17 22:35 Urine Bacteria Many /hpf (None) H 02/26/17 22:35 Hyaline Casts 4 /lpf (0-2) H 02/26/17 22:35 Granular Casts 6 /lpf (0) 02/26/17 22:35 Gastric Occult Blood Positive (Negative) 02/26/17 21:59 Random Vancomycin 7.2 ug/mL 03/01/17 04:30 Microbiology 02/28/17 10:50 Blood Blood Culture - Preliminary No Growth after 72 hours 02/27/17 23:22 Sputum Gram Stain - Final 02/27/17 23:22 Sputum Sputum Culture - Final Demi albicans Demi glabrata 02/27/17 12:01 Blood Blood Culture Gram Stain - Final 02/27/17 12:01 Blood Blood Culture - Final Escherichia coli 02/26/17 22:35 Urine,Voided Urine Culture - Final Escherichia coli 02/26/17 19:05 Blood Blood Culture Gram Stain - Final 02/26/17 19:05 Blood Blood Culture - Final Escherichia coli 02/26/17 19:05 Blood Blood Culture Gram Stain - Final 02/26/17 19:05 Blood Blood Culture - Final Escherichia coli 02/27/17 12:01 Blood Blood Culture - Final 02/26/17 19:05 Blood Blood Culture - Final 02/26/17 19:05 Blood Blood Culture - Final Assessment and Plan (1) Septic shock Narrative/Plan: 71-year-old male presents to hospital with increasing weakness. Shortly after admission became profoundly more ill. He became hypotensive and developed respiratory failure. He required intubation and mechanical ventilation. He remains ventilated at this time. Concerns underlying pneumonia as etiology of his current gram-negative sepsis. Follow cultures are in process and await the final identification. Fortunately there is been some improvement in that his leukocytosis is improved from 28 to 20.Also has had less vasopressor therapy needs. He however does have a acute renal failure his creatinine is at 3.58 and it was 1.04 during his last stay. Antibiotic therapy continues. With gram negatives only being isolated vancomycin is discontinued. Await final culture to determine final course of antibiotic therapy. Follow blood cultures requested given the multiple positive so far. Patient did have a VQ scan performed at admission that was a low probability of pulmonary embolism. However right lower lobe pneumonia is noted. The blood cultures reveal evidence of E. coli ESBL. Thus antibiotic therapy was altered to ertapenem. Follow up blood cultures negative so far. Leukocytosis persists related to his sepsis. Appears to be sepsis from urinary system. Weaning trials in progress possible extubation in AM Status: Acute (2) Pneumonia Status: Acute
[2017-03-03] MEDS: ATORVASTATIN 20 MG TAB PO SCH (21:08)
[2017-03-03] MEDS: BENZTROPINE MESYLATE 1 MG TAB PO SCH (21:08)
[2017-03-03] MEDS: traZODone HCL 100 MG TAB PO SCH (21:08)
[2017-03-04 00:05] LABS: Glucose,Whole Blood 144 mg/dL (75-99)
[2017-03-04] MEDS: methylPREDNISolone SOD SUCCI 40 MG/ML 1 ML VIAL IV SCH ×5 (00:18→23:34)
[2017-03-04] MEDS: INSULIN LISPRO (humaLOG) 300 UNIT/3 ML VIAL SQ SCH ×5 (00:18→23:34)
[2017-03-04] MEDS: PROPOFOL 1,000 MG/100 ML VIAL IV SCH (00:19)
[2017-03-04 05:06] LABS: Anisocytosis Slight; Basophils % (A) 0 %; CH 25.4; CHCM 30.2; Eosinophils % (A) 0 %; HCT 39.4 % (39.0-53.0); HDW 3.13; HGB 11.7 gm/dL (13.0-17.5); Hypochromasia Marked; Luc # (Auto) 0.12; Luc % (Auto) 1; Lymphocytes # (A) 0.6 k/uL (1.0-4.8); Lymphocytes % (A) 6 %; MCHC 29.6 g/dL (31.0-37.0); MCV 84.3 fL (80.0-100.0); Mean Platelet Volume 9.8; Monocytes # (A) 0.7 k/uL (0-1.0); Monocytes % (A) 7 %; Neutrophils # (A) 8.8 k/uL (1.3-7.7); Neutrophils % (A) 86 %; RBC 4.67 m/uL (4.30-5.90); RDW 17.7 % (11.5-15.5); WBC 10.1 k/uL (3.8-10.6); WBC (Perox) 10.66
[2017-03-04 05:14] LABS: INR 1.2 (<1.2); Prothrombin Time 12.2 sec (9.0-12.0)
[2017-03-04 05:19] LABS: Calcium 8.6 mg/dL (8.4-10.2); Magnesium 2.4 mg/dL (1.6-2.3); Phosphorous 3.5 mg/dL (2.5-4.5); Potassium 4.2 mmol/L (3.5-5.1); Total Bilirubin 0.5 mg/dL (0.2-1.3); Total Protein 5.2 g/dL (6.3-8.2)
[2017-03-04 06:07] LABS: Glucose,Whole Blood 156 mg/dL (75-99)
[2017-03-04] MEDS: IPRATROPIUM-ALBUTEROL 3 ML NEB INHALATION SCH ×4 (07:42→19:56)
[2017-03-04 07:57] LABS: ABG Base Excess 4.8 mmol/L; ABG HCO3 29 mmol/L (21-25); ABG PCO2 40 mmHg (35-45); ABG PH 7.47 (7.35-7.45); ABG PO2 106 mmHg (83-108); ABG TCO2 30 mmol/L (19-24)
--- NOTE | 2017-03-04 08:40 | XR ---
EXAMINATION TYPE: XR chest 1V portable DATE OF EXAM: 03/04/2017 Comparison: 03/03/2017 Clinical History: 71-year-old male Tube placement Findings: Limited exam. ET and NG tubes remain in place. The NG tube sidehole appears to be at the GE junction level and could be further advanced into the stomach. Left subclavian CVC tip at the mid to lower SVC . Right heart margin obscured by adjacent pleural-parenchymal disease. Pulmonary vasculature appears sl ightly improved from prior. Continued moderate right and small left pleural effusions with bibasilar opacities. Impression: 1. Residual, slightly improving pulmonary vascular congestion. 2. Moderate right and small left pleural effusions with adjacent atelectasis and/or consolidation per sist. 3. The NG tube sidehole is at the GE junction level. Consider advancement into the stomach.
[2017-03-04] MEDS: FUROSEMIDE 40 MG TAB PO SCH (08:43)
[2017-03-04] MEDS: ENOXAPARIN 40 MG/0.4 ML SYRINGE SQ SCH (08:43)
[2017-03-04] MEDS: CHLORHEXIDINE GLUCONATE 15 ML CUP MUCOUS MEM SCH (08:43)
[2017-03-04] MEDS: ERTAPENEM 1 GM in SODIUM CHLORIDE 0.9% 50 ML IVPB SCH (08:53)
[2017-03-04] MEDS: SODIUM CHLORIDE 0.9% 1,000 ML IV SCH (10:59)
--- NOTE | 2017-03-04 11:06 | P.PN ---
Subjective Principal diagnosis: Acute septic shock secondary to E. coli urinary tract infection. A 71-year-old male patient who was admitted yesterday through the emergency department because of nausea, diminished oral intake, generalized weakness and lethargy. The patient apparently had dropped his oral intake and he was feeling progressively more weak. Denied having any chest pain. No cough or sputum production. No abdominal pain or abdominal distention. The patient was felt to be septic of a urinary source. His white cell count was elevated at 28.5 and the patient was also in acute kidney injury. Lactic acid was nonelevated. The patient's urinalysis was significant abnormal with significant number of white cell count and bacteria and the urine itself was quite dirty. The Carrasco catheter was inserted. The patient was started on a combination of vancomycin and Zosyn and he was admitted to the medical floor. This afternoon, the patient became hypotensive and diaphoretic. His blood pressure dropped down to the 50s systolic. At the same time the patient became tachycardic with a heart rate of 120. He was also becoming progressively more lethargic. He was on 6 L oxygen nasal cannula and his pulse ox was around 94%. The patient was brought into the intensive care unit. A triple lumen catheter was inserted. The patient was on IV fluids and pressors. For now the patient is already received 1-1/2 L of IV fluid in the form of normal saline. Levo fed was also initiated at 10 mics initially and currently it's at 30 mics. Urine output is diminished at this point. The patient was subsequently intubated as the patient did not he felt to be awake enough to protect his airway and he be has becoming progressively more hypoxic. I intubated this patient and put him on a mechanical ventilator on assist control mode at the rate of 24, tidal volume 500, PEEP of 5 and FiO2 100%. The patient will have a blood gases and chest x-ray done and these are still pending for now. The patient is known to me. Of taking care of him during a recent bout of sepsis and respiratory failure. The patient came into the ICU last month unresponsive and he was and CO2 narcosis. He was also in acute respiratory failure. He was a shock on pressors. Echocardiogram back then showed an ejection fraction of 40-45% with secondary pulmonary hypertension. CT angios the chest showed no evidence of any pulmonary embolism and there was a tonic right-sided pleural effusion. The patient was ultimately stabilized. He was assumed to have a right lower lobe pneumonia which was treated. All of the cultures came back negative. He was extubated. His acute kidney injury recovered. He was discharged to [facility] on a course of Levaquin On 02/28/2017 the patient is being seen in a follow-up. As mentioned earlier, the patient has gone into respiratory failure due to a complicated urinary tract infection septic shock. He was also intubated and placed on a mechanical ventilator. This morning, his FiO2 is down to 40% with a PEEP of 5 and he has a tidal volume of 500 with a rate of 24. His chest x-ray shows a chronic right- sided pleural effusion and the ET tube is in a good location and the patient has a left subclavian triple-lumen catheter in place. Also, the blood gas shows a pH of 7.37 with a pCO2 of 40 and pO2 of 115. Hemodynamically, the patient has been adequately resuscitated IV fluids. The patient is currently off pressors. White cell count is down to 20.5. The patient has gram-negative bacilli in his blood. ID is on the case. He is a currently on a combination of Zosyn and Levaquin. Vancomycin was discontinued. The patient is producing adequate amount of urine output. He is still in acute kidney injury yet his is nonoliguric. He is producing adequate amount of urine output. Blood sugars under good control. We'll start low-grade/rate tube feeds on him today. I discussed the case with his brother the bedside. On 03/01/2017 the patient is being seen in follow-up. He remains on assist control mode of ventilation with a rate of 24, tidal volume of 500 with an FiO2 of 40% and PEEP of 5. Peak airway pressures around 30 to anesthetic pressures around 20 and on today's evaluation is slightly bronchospastic and wheezy. He was given a sedation holiday. The weaning parameters was checked was poor. He was given a brief this point is breathing trial if her support of 5 and a PEEP of 5 which she was unable to tolerate as the patient became tachypneic and tachycardic. The trial was aborted. The patient is off sedation for now. He is calm and comfortable. Hemodynamically stable. He is off pressors. Function is improving and creatinine is down to 3. White cell count is also improving. Is down to 18. The blood culture was positive for E. coli which is an ESBL producing organism. The patient is on Zosyn and Levaquin and I think this may need to be switched to an antibiotic that covers ESBL, probably Merrem and for that reason this will be discussed with infectious disease. We'll start tube feeds. Possibly no extubation today based on the fifth spontaneous breathing trial. We'll may try the same prosthetic and around 2:00. I came to realize that was felt to put the patient on breathing treatments after being on the mechanical ventilator. He is also known to have COPD. Patient was reevaluated today on 03/02/2017, remains on mechanical ventilation, vent settings are tidal volume of 500, assist control rate of 24 FiO2 of 40% and PEEP of 5. ABG showed a pO2 of 95 pCO2 of 37 pH of 7.41. Basic metabolic profile was relatively normal, however BUN is 70 creatinine is 2.44. Renal profile seems to be steadily improving over the last few days. Peak airway pressure is about 32 plateau pressures about 20. Patient is presently off pressors, however according to the nurses when he was weaned off sedation, he became extremely agitated and restless tachycardic and tachypneic. Hence he had to be placed back on propofol. Patient is now on ertapenem for ESBL producing organism/E. coli. Patient is also on nutritional support via enteral feeding. Chest x-ray was reviewed and there seems to be evidence of right basilar atelectasis, and possibly small or moderate pleural effusion on the right side. May eventually consider ultrasound guided thoracentesis if his chest x-ray does not show much improvement. Patient was reevaluated today on 03/03/2017, remains on mechanical ventilation, ventilator settings as noted above, unchanged, ABG reviewed pO2 of 99 pCO2 of 37 pH of 7.45. CBC is relatively unremarkable. Chest x-ray continues to show a significant amount of consolidation of the right lower lobe and possibly a right parapneumonic effusion. Renal profile was reviewed, sodium remains a bit elevated although the patient is receiving free water via nasogastric tube. Creatinine is improving, 1.96 today. BUN is 68. Patient is arousable, follows simple instructions shortly after sedation was placed on hold. However I'm waiting until he is more awake, and I would likely recommend a short trial using pressure support and CPAP. Patient was reevaluated today on 03/04/2017, remains on mechanical ventilation, ventilator settings are unchanged, ABG was reviewed, chest x-ray continues to show right lower lobe consolidation and right parapneumonic effusion. Patient is hemodynamically stable, seems to be quite arousable, follows simple instructions, patient was given about 1 hour trial of pressure support and CPAP , and he was noted to tolerate the weaning mode quite well. Hence patient was extubated while I was at bedside to a nasal cannula 4 L/m. CBC was relatively normal. ABG showed a pO2 of 106 pCO2 of 40 pH of 7.47. Sodium 148 BUN is 63 creatinine is 1.50. His renal profile has been gradually improving since the day of admission. Chest x-ray was also reviewed there may be a slight improvement, the right pleural effusion seems to be borderline, I'm still debating whether to proceed with thoracentesis, but this would likely be done, if the pleural effusion gets any worse. Objective - Vital Signs Vital signs: Vital Signs Temp 99.7 F H 03/04/17 04:00 Pulse 82 03/04/17 10:00 Resp 30 H 03/04/17 10:00 BP 154/74 03/04/17 10:00 Pulse Ox 97 03/04/17 10:00 Intake & Output 03/03/17 03/04/17 03/04/17 18:59 06:59 18:59 Intake Total 4646.110 7260.905 730 Output Total 2325 2210 525 Balance -542.465 -71.095 205 Weight 113.6 kg Intake: IV 430 240 130 Ertapenem 1 gm In Sodium 50 50 Chloride 0.9% 50 ml @ 100 mls/hr IVPB Q24HR [facility] Rx #:[id number] Sodium Chloride 0.9% 1, 380 240 80 000 ml @ 20 mls/hr IV . Q24H [facility] Rx#:[id number] Intake, IV Titration 62.535 58.905 Amount Propofol 1,000 mg In 100 62.535 58.905 ml @ Titrate IV .Q0M [facility] Rx#:[id number] Tube Feeding 440 640 200 Other 850 1200 400 Output: Urine 2325 2210 525 Stool 0 Other: Voiding Method Indwelling Catheter Indwelling Catheter Indwelling Catheter # Bowel Movements 1 1 ABP, PAP, CO, CI - Last Documented Arterial Blood Pressure 145/66 - Exam Physical Exam: Revealed a 71-year-old white male sedated, on mechanical ventilation. Endotracheal tube and orogastric tube seemed to be intact. HEENT:[Neck is supple.] [No neck masses.] [No thyromegaly.] [No JVD.] Chest: [Scattered rhonchi and wheezes bilaterally diminished at the bases Cardiac Exam: [Normal S1 and S2, no S3 gallop, no murmur.] Abdomen: [Soft, nontender, no megaly, no rebound, no guarding, normal bowel sounds.] Extremities: [No clubbing, no edema, no cyanosis.] Neurological Exam: No focal neurologic deficit - Labs CBC & Chem 7: 03/04/17 05:00 03/04/17 05:00 Labs: Abnormal Lab Results - Last 24 Hours (Table) 03/03/17 03/03/17 03/04/17 Range/Units 12:04 17:55 00:02 Hgb (13.0-17.5) gm/dL MCHC (31.0-37.0) g/dL RDW (11.5-15.5) % Neutrophils # (1.3-7.7) k/uL Lymphocytes # (1.0-4.8) k/uL PT (9.0-12.0) sec INR (<1.2) ABG pH (7.35-7.45) ABG HCO3 (21-25) mmol/L ABG Total CO2 (19-24) mmol/L ABG O2 Saturation (94-97) % Sodium (137-145) mmol/L Chloride (98-107) mmol/L BUN (9-20) mg/dL Creatinine (0.66-1.25) mg/dL Glucose (74-99) mg/dL POC Glucose (mg/dL) 142 H 127 H 144 H (75-99) mg/dL Magnesium (1.6-2.3) mg/dL Total Protein (6.3-8.2) g/dL Albumin (3.5-5.0) g/dL 03/04/17 03/04/17 03/04/17 Range/Units 05:00 05:00 05:00 Hgb 11.7 L (13.0-17.5) gm/dL MCHC 29.6 L (31.0-37.0) g/dL RDW 17.7 H (11.5-15.5) % Neutrophils # 8.8 H (1.3-7.7) k/uL Lymphocytes # 0.6 L (1.0-4.8) k/uL PT 12.2 H (9.0-12.0) sec INR 1.2 H (<1.2) ABG pH (7.35-7.45) ABG HCO3 (21-25) mmol/L ABG Total CO2 (19-24) mmol/L ABG O2 Saturation (94-97) % Sodium 148 H (137-145) mmol/L Chloride 111 H (98-107) mmol/L BUN 63 H (9-20) mg/dL Creatinine 1.50 H (0.66-1.25) mg/dL Glucose 162 H (74-99) mg/dL POC Glucose (mg/dL) (75-99) mg/dL Magnesium 2.4 H (1.6-2.3) mg/dL Total Protein 5.2 L (6.3-8.2) g/dL Albumin 2.6 L (3.5-5.0) g/dL 03/04/17 03/04/17 Range/Units 06:05 07:35 Hgb (13.0-17.5) gm/dL MCHC (31.0-37.0) g/dL RDW (11.5-15.5) % Neutrophils # (1.3-7.7) k/uL Lymphocytes # (1.0-4.8) k/uL PT (9.0-12.0) sec INR (<1.2) ABG pH 7.47 H (7.35-7.45) ABG HCO3 29 H (21-25) mmol/L ABG Total CO2 30 H (19-24) mmol/L ABG O2 Saturation 98.0 H (94-97) % Sodium (137-145) mmol/L Chloride (98-107) mmol/L BUN (9-20) mg/dL Creatinine (0.66-1.25) mg/dL Glucose (74-99) mg/dL POC Glucose (mg/dL) 156 H (75-99) mg/dL Magnesium (1.6-2.3) mg/dL Total Protein (6.3-8.2) g/dL Albumin (3.5-5.0) g/dL Microbiology - Last 24 Hours (Table) 02/28/17 10:50 Blood Culture - Preliminary Blood No Growth after 72 hours Assessment and Plan Plan: 1 septic shock secondary to a E. coli urinary tract infection. The patient has been adequately resuscitated with IV fluids. The patient's blood pressure is normalized and currently is off pressors. It is an ESBL producing organism. Patient is already on ertapenem. 2 shock secondary to above. This is septic shock. 3 E. coli sepsis secondary to a urinary tract infection 4 acute respiratory failure secondary to above. Currently intubated on mechanical ventilator. The patient is broken spastic and wheezy on today's evaluation. He'll be started on DuoNeb nebulized treatments and steroids. 5 chronic right-sided pleural effusion small to moderate in size, patient will have ultrasound today, if the fluid is large enough and freely moving, may consider thoracentesis. 6 Obesity 7 acute kidney injury, improving 8 chronic psychiatric disorder and the patient has been maintained on multiple psychotropic medication including Abilify, trazodone, Cogentin and Lamictal on outpatient basis. He has underlying PTSD/bipolar disorder/depression 9 COPD 10 longterm resident 11 hypertension 12 hyperlipidemia 13 chronic smoker 14 preserved LV function based on recent echocardiogram with an ejection fraction of 40% 15 status post extubation after a trial of pressure support and CPAP, this was done on . Recommendation: Patient was extubated uneventfully to a nasal cannula, I was mostly at bedside most of the time while he was weaning, evaluated after extubation, seems to be tolerating the extubation well, will continue present meds, including antibiotics and bronchodilators, and incentive spirometry GI and DVT prophylaxis. Critical care time is 35 minutes. Time with Patient: Greater than 30
[2017-03-04] MEDS: DEXTROSE 5% IN WATER 1,000 ML IV SCH (11:09)
--- NOTE | 2017-03-04 11:09 | P.PN ---
Subjective Patient is seen in follow-up for acute kidney injury. Renal function is improving with creatinine down to 1.5 today. Baseline creatinine is 1. He remains nonoliguric. He was extubated this morning. Patient presented with hypotension along with generalized weakness. He was noted to be in septic shock with urine and blood culture positive for E. coli. His sputum culture is positive for Demi and yeast species. He is maintained on IV antibiotics. Sodium leve a little improved at 148l today. Vital signs are stable. General: Intubated. HEENT: Head exam is unremarkable. Neck is without jugular venous distension. LUNGS: Scattered rhonchi. Breath sounds decreased. HEART: Rate and Rhythm are regular. First and second heart sounds normal. No murmurs, rubs or gallops. ABDOMEN: Abdominal exam reveals normal bowel sounds. Non-tender and non- distended. EXTREMITITES: Trace edema. Objective - Vital Signs Vital signs: Vital Signs Temp 99.7 F H 03/04/17 04:00 Pulse 82 03/04/17 10:00 Resp 30 H 03/04/17 10:00 BP 154/74 03/04/17 10:00 Pulse Ox 97 03/04/17 10:00 Intake & Output 03/03/17 03/04/17 03/04/17 18:59 06:59 18:59 Intake Total 8972.852 3344.905 730 Output Total 2325 2210 525 Balance -542.465 -71.095 205 Weight 113.6 kg Intake: IV 430 240 130 Ertapenem 1 gm In Sodium 50 50 Chloride 0.9% 50 ml @ 100 mls/hr IVPB Q24HR [facility] Rx #:[id number] Sodium Chloride 0.9% 1, 380 240 80 000 ml @ 20 mls/hr IV . Q24H [facility] Rx#:[id number] Intake, IV Titration 62.535 58.905 Amount Propofol 1,000 mg In 100 62.535 58.905 ml @ Titrate IV .Q0M [facility] Rx#:[id number] Tube Feeding 440 640 200 Other 850 1200 400 Output: Urine 2325 2210 525 Stool 0 Other: Voiding Method Indwelling Catheter Indwelling Catheter Indwelling Catheter # Bowel Movements 1 1 ABP, PAP, CO, CI - Last Documented Arterial Blood Pressure 145/66 - Labs CBC & Chem 7: 03/04/17 05:00 03/04/17 05:00 Labs: Abnormal Lab Results - Last 24 Hours (Table) 03/03/17 03/03/17 03/04/17 Range/Units 12:04 17:55 00:02 Hgb (13.0-17.5) gm/dL MCHC (31.0-37.0) g/dL RDW (11.5-15.5) % Neutrophils # (1.3-7.7) k/uL Lymphocytes # (1.0-4.8) k/uL PT (9.0-12.0) sec INR (<1.2) ABG pH (7.35-7.45) ABG HCO3 (21-25) mmol/L ABG Total CO2 (19-24) mmol/L ABG O2 Saturation (94-97) % Sodium (137-145) mmol/L Chloride (98-107) mmol/L BUN (9-20) mg/dL Creatinine (0.66-1.25) mg/dL Glucose (74-99) mg/dL POC Glucose (mg/dL) 142 H 127 H 144 H (75-99) mg/dL Magnesium (1.6-2.3) mg/dL Total Protein (6.3-8.2) g/dL Albumin (3.5-5.0) g/dL 03/04/17 03/04/17 03/04/17 Range/Units 05:00 05:00 05:00 Hgb 11.7 L (13.0-17.5) gm/dL MCHC 29.6 L (31.0-37.0) g/dL RDW 17.7 H (11.5-15.5) % Neutrophils # 8.8 H (1.3-7.7) k/uL Lymphocytes # 0.6 L (1.0-4.8) k/uL PT 12.2 H (9.0-12.0) sec INR 1.2 H (<1.2) ABG pH (7.35-7.45) ABG HCO3 (21-25) mmol/L ABG Total CO2 (19-24) mmol/L ABG O2 Saturation (94-97) % Sodium 148 H (137-145) mmol/L Chloride 111 H (98-107) mmol/L BUN 63 H (9-20) mg/dL Creatinine 1.50 H (0.66-1.25) mg/dL Glucose 162 H (74-99) mg/dL POC Glucose (mg/dL) (75-99) mg/dL Magnesium 2.4 H (1.6-2.3) mg/dL Total Protein 5.2 L (6.3-8.2) g/dL Albumin 2.6 L (3.5-5.0) g/dL 03/04/17 03/04/17 Range/Units 06:05 07:35 Hgb (13.0-17.5) gm/dL MCHC (31.0-37.0) g/dL RDW (11.5-15.5) % Neutrophils # (1.3-7.7) k/uL Lymphocytes # (1.0-4.8) k/uL PT (9.0-12.0) sec INR (<1.2) ABG pH 7.47 H (7.35-7.45) ABG HCO3 29 H (21-25) mmol/L ABG Total CO2 30 H (19-24) mmol/L ABG O2 Saturation 98.0 H (94-97) % Sodium (137-145) mmol/L Chloride (98-107) mmol/L BUN (9-20) mg/dL Creatinine (0.66-1.25) mg/dL Glucose (74-99) mg/dL POC Glucose (mg/dL) 156 H (75-99) mg/dL Magnesium (1.6-2.3) mg/dL Total Protein (6.3-8.2) g/dL Albumin (3.5-5.0) g/dL Microbiology - Last 24 Hours (Table) 02/28/17 10:50 Blood Culture - Preliminary Blood No Growth after 72 hours Assessment and Plan Plan: Assessment: #1. Nonoliguric acute kidney injury secondary to ischemic ATN secondary to septic shock. Creatinine peaked at 3.8 this admission and is down to 1.5 today. Baseline creatinine is near 1. #2. Septic shock secondary to E. coli bacteremia and UTI. Sputum culture positive for Demi. #3. Hypotension secondary to septic shock. Resolved. #4 Metabolic acidosis secondary to acute kidney injury and IV fluids. resolved. #5. Hypernatremia secondary to lack of oral water intake. Plan: Start D5W to be run at 50 mL an hour. Avoid nephrotoxic agents and hypotensive episodes. Continue to monitor renal function and urine output. No need for renal replacement therapy at this time. Abx per ID reccs. Continue lasix 40 mg daily.
[2017-03-04] MEDS ORDERED: HALOPERIDOL LACTATE 5 MG/ML 1 ML VIAL IM PRN (12:05)
[2017-03-04] MEDS: LORazepam 2 MG/ML SYRINGE IV PRN ×2 (12:15→20:00)
[2017-03-04 12:19] LABS: Glucose,Whole Blood 153 mg/dL (75-99)
--- NOTE | 2017-03-04 13:09 | CDI ---
I In responding to this query, please exercise your independent professional judgment. The [facility] Coding Staff and Clinical Documentation Specialists appreciate your assistance in clarifying documentation, maintaining compliance with coding guidelines, accurately documenting patients condition and capturing severity of illness. The fact that a question is asked does not imply that any particular answer is desired or expected. Communication forms are a method of clarifying documentation and are not made part of the Legal Health Record. Thank you in advance for your clarification. Last Revision, May 2015 Trixie Jameson [address] [place] [address] Documentation Clarification Form Date: 03/04/2017 12:29:00 PM From: Minna Gaines Admit Date: 02/27/2017 12:04:00 AM Patient Name: Horacio Torres Visit Number: [id number] Discharge Date: Dr. Norman Gallardo Pneumonia was documented on 02/28/17 and in the ongoing Infectious Disease progress notes. History/Risk Factors: [facility] resident, Schizophrenia paranoid type, COPD, Chronic hypoxic and hypercapnic respiratory failure, Hypertension, Current same day smoker, Pneumonia Clinical Indicators: Presents with increase weakness, became hypotensive and developed respiratory failure. Concerns underlying pneumonia as etiology of his current gram-negative sepsis. WBC/Left shift: 20.5 Chest X-ray: continues to show a significant amount of consolidation of the right lower lobe and possibly a right parapneumonic effusion 02/28/17 V Q scan: Low probability of pulmonary embolism However right lower lobe pneumonia is noted Lung/Breathing assessment: crackles, expiratory wheezes (per ID) Sputum Culture Final: Demi albicans, Demi glabrata Treatment: Duoneb's IV Fluids Invanz IV Solu-Medrol IV Ventilator monitoring (now extubated) Monitor O2 Sat's In order to capture the severity of condition, please clarify if the condition signifies and you are treating for: (Or was Pneumonia ruled out?) Bacterial Pneumonia, specify causal organism (if known) Gram Negative Pneumonia Due to Strep Due to Staph Due to E. Coli Aspiration Pneumonia, identify if: Due to solids or liquids Other bacteria (specify) Viral Pneumonia, specify casual organism (if known) Ventilator Associated Pneumonia Healthcare Acquired Pneumonia/Pneumonia, unspecified Unable to determine Link any associated conditions to the pneumonia: Influenza with secondary gram negative pneumonia Sepsis due to pneumonia Acute respiratory failure due to pneumonia Other, please specify Please document in your progress notes in order to capture severity of illness and risk of mortality. Include clinical findings that support your diagnosis. FYI: Press F11 to launch patient chart. OMAR
[2017-03-04 17:56] LABS: Glucose,Whole Blood 128 mg/dL (75-99)
--- NOTE | 2017-03-04 18:05 | P.PN ---
Subjective Progress Note dictated for Dr. Curry. 03/03/17 Interval history: This a 71-year-old gentleman admitted with severe sepsis secondary to ESBL bacteremia,UTI, acute on chronic metabolic encephalopathy, acute hypoxic respiratory failure and acute renal failure and multiple other medical issues. Off pressors. Maintained on mechanical ventilation of 40% FiO2/ +5 of PEEP. Suctioning tenacious white secretions from endotracheal tube .Yesterday tolerated initial CPAP for about 15 minutes, today tolerated longer for nearly an hour and then became tachycardic; returned to mechanical ventilation. Tolerating tube feeds at goal with minimal to no residuals. Sodium elevated at 149, water flushes increased. Renal function improving. Chest x-ray reporting persistent airspace consolidation right lower lobe with associated pleural effusions without failure. Ultrasound of chest performed with left-sided Marked for potential thoracentesis. 03/04/2017 extubated this morning, currently maintaining on 4 L nasal cannula .Chest x-ray reporting slightly improving pulmonary vascular congestion, moderate right small left pleural effusion, adjacent atelectasis and/or consolidation. Pulmonary discussing potential thoracentesis. Positive bowel movement. Telemetry sinus rhythm with occasional PVCs and PACs. IV fluids changed to D5W secondary to hypernatremia as patient no longer receiving free water flushes. Sodium currently 148. Review systems unable to obtain as patient currently declining to participate Active Medications Generic Name Dose Route Start Last Admin Trade Name Freq PRN Reason Stop Dose Admin Albuterol/Ipratropium 3 ml 03/01/17 12:00 03/04/17 15:43 Duoneb 0.5 Mg-3 Mg/3 Ml Soln INHALATION 3 ml RT-QID JYOTSNA Administration Atorvastatin Calcium 20 mg 02/27/17 21:00 03/03/17 21:08 Lipitor PO 20 mg HS JYOTSNA Administration Benztropine Mesylate 2 mg 02/27/17 21:00 03/03/17 21:08 Cogentin PO 2 mg HS JYOTSNA Administration Chlorhexidine Gluconate 15 ml 02/27/17 21:00 03/04/17 08:43 Peridex MUCOUS MEM 15 ml BID JYOTSNA Administration Enoxaparin Sodium 40 mg 02/27/17 18:00 03/04/17 08:43 Lovenox SQ 40 mg DAILY JYOTSNA Administration Furosemide 40 mg 02/27/17 09:00 03/04/17 08:43 Lasix PO 40 mg DAILY JYOTSNA Administration Haloperidol Lactate 3 mg 03/04/17 12:05 Haldol IM Q6HR PRN Agitation or Acute Psychosis Norepinephrine Bitartrate 16 mg in 250 mls @ 0 mls/hr 02/27/17 15:15 08:30 Levophed-0.9% Nacl 16 Mg/250ml Pmx IV 0 mcg/min .Q0M JYOTSNA 0 mls/hr Protocol Titration Titrate Ertapenem 1 gm/ Sodium 50 mls @ 100 mls/hr 03/01/17 16:15 03/04/17 08:53 Chloride IVPB 100 mls/hr Q24HR JYOTSNA Administration Dextrose/Water 1,000 mls @ 50 mls/hr 03/04/17 11:15 03/04/17 11:09 Dextrose 5%-Water Iv Soln IV 50 mls/hr .Q20H JYOTSNA Administration Insulin Human Lispro 0 unit 02/27/17 18:00 03/04/17 12:18 Humalog SQ 1 unit Q6H JYOTSNA Administration Protocol Lorazepam 0.5 mg 03/04/17 12:04 03/04/17 12:15 Ativan IV 0.5 mg Q6HR PRN Administration Agitation Methylprednisolone Sodium Succinate 40 mg 03/01/17 12:00 03/04/17 11:02 Solu-Medrol IV 40 mg Q6HR JYOTSNA Administration Miscellaneous Information 1 each 03/03/17 06:01 Potassium Per Protocol MISCELLANE DAILY PRN Per Protocol Protocol Naloxone HCl 0.2 mg 02/27/17 14:28 Narcan IV Q2M PRN Opioid Reversal Trazodone HCl 100 mg 02/27/17 21:00 03/03/17 21:08 Desyrel PO 100 mg HS JYOTSNA Administration Objective - Vital Signs Vital signs: Vital Signs Temp 98.4 F 03/04/17 16:00 Pulse 69 03/04/17 16:00 Resp 37 H 03/04/17 16:00 BP 152/68 03/04/17 16:00 Pulse Ox 96 03/04/17 16:00 Intake & Output 03/03/17 03/04/17 03/04/17 18:59 06:59 18:59 Intake Total 4599.878 0569.905 1000 Output Total 3086 6640 1377 Balance -542.465 -71.095 -862 Weight 113.6 kg Intake: IV 430 240 150 Ertapenem 1 gm In Sodium 50 50 Chloride 0.9% 50 ml @ 100 mls/hr IVPB Q24HR JYOTSNA Rx #:[id number] Sodium Chloride 0.9% 1, 380 240 100 000 ml @ 20 mls/hr IV . Q24H JYOTSNA Rx#:[id number] Intake, IV Titration 62.535 58.905 250 Amount Dextrose 5% in Water 1, 250 000 ml @ 50 mls/hr IV . Q20H JYOTSNA Rx#:[id number] Propofol 1,000 mg In 100 62.535 58.905 ml @ Titrate IV .Q0M JYOTSNA Rx#:[id number] Tube Feeding 440 640 200 Other 850 1200 400 Output: Urine 2325 2210 1375 Stool 0 2 Other: Voiding Method Indwelling Catheter Indwelling Catheter Indwelling Catheter # Voids 1 # Bowel Movements 1 1 1 ABP, PAP, CO, CI - Last Documented Arterial Blood Pressure 145/66 - Exam PHYSICAL EXAM: VITAL SIGNS: As above GENERAL: [Sitting up in bed, no acute distress HEENT: [Pupils equal conjunctiva normal.] NECK: [Supple, no JVD] RESPIRATORY EFFORT:[ Normal] LUNGS: [Diminished, expiratory wheezes, scattered rhonchi] CARDIOVASCULAR[ regular S1 and S2, no murmurs rubs or gallop, mild edema] GI: [Abdomen soft, nontender, positive bowel sounds.] PSYCH/NEURO: Currently unable to fully evaluate patient declining to participate (staff reports patient is angry that he has to remainNPO 6 hrs post extubation). Microbiology 02/28/17 10:50 Blood Blood Culture - Preliminary No Growth after 96 hours 02/27/17 23:22 Sputum Gram Stain - Final 02/27/17 23:22 Sputum Sputum Culture - Final Demi albicans Demi glabrata 02/27/17 12:01 Blood Blood Culture Gram Stain - Final 02/27/17 12:01 Blood Blood Culture - Final Escherichia coli 02/26/17 22:35 Urine,Voided Urine Culture - Final Escherichia coli 02/26/17 19:05 Blood Blood Culture Gram Stain - Final 02/26/17 19:05 Blood Blood Culture - Final Escherichia coli 02/26/17 19:05 Blood Blood Culture Gram Stain - Final 02/26/17 19:05 Blood Blood Culture - Final Escherichia coli 02/27/17 12:01 Blood Blood Culture - Final 02/26/17 19:05 Blood Blood Culture - Final 02/26/17 19:05 Blood Blood Culture - Final - Labs CBC & Chem 7: 03/04/17 05:00 03/04/17 05:00 Labs: Abnormal Lab Results - Last 24 Hours (Table) 03/03/17 03/04/17 03/04/17 Range/Units 17:55 00:02 05:00 Hgb (13.0-17.5) gm/dL MCHC (31.0-37.0) g/dL RDW (11.5-15.5) % Neutrophils # (1.3-7.7) k/uL Lymphocytes # (1.0-4.8) k/uL PT (9.0-12.0) sec INR (<1.2) ABG pH (7.35-7.45) ABG HCO3 (21-25) mmol/L ABG Total CO2 (19-24) mmol/L ABG O2 Saturation (94-97) % Sodium 148 H (137-145) mmol/L Chloride 111 H (98-107) mmol/L BUN 63 H (9-20) mg/dL Creatinine 1.50 H (0.66-1.25) mg/dL Glucose 162 H (74-99) mg/dL POC Glucose (mg/dL) 127 H 144 H (75-99) mg/dL Magnesium 2.4 H (1.6-2.3) mg/dL Total Protein 5.2 L (6.3-8.2) g/dL Albumin 2.6 L (3.5-5.0) g/dL 03/04/17 03/04/17 03/04/17 Range/Units 05:00 05:00 06:05 Hgb 11.7 L (13.0-17.5) gm/dL MCHC 29.6 L (31.0-37.0) g/dL RDW 17.7 H (11.5-15.5) % Neutrophils # 8.8 H (1.3-7.7) k/uL Lymphocytes # 0.6 L (1.0-4.8) k/uL PT 12.2 H (9.0-12.0) sec INR 1.2 H (<1.2) ABG pH (7.35-7.45) ABG HCO3 (21-25) mmol/L ABG Total CO2 (19-24) mmol/L ABG O2 Saturation (94-97) % Sodium (137-145) mmol/L Chloride (98-107) mmol/L BUN (9-20) mg/dL Creatinine (0.66-1.25) mg/dL Glucose (74-99) mg/dL POC Glucose (mg/dL) 156 H (75-99) mg/dL Magnesium (1.6-2.3) mg/dL Total Protein (6.3-8.2) g/dL Albumin (3.5-5.0) g/dL 03/04/17 03/04/17 Range/Units 07:35 12:17 Hgb (13.0-17.5) gm/dL MCHC (31.0-37.0) g/dL RDW (11.5-15.5) % Neutrophils # (1.3-7.7) k/uL Lymphocytes # (1.0-4.8) k/uL PT (9.0-12.0) sec INR (<1.2) ABG pH 7.47 H (7.35-7.45) ABG HCO3 29 H (21-25) mmol/L ABG Total CO2 30 H (19-24) mmol/L ABG O2 Saturation 98.0 H (94-97) % Sodium (137-145) mmol/L Chloride (98-107) mmol/L BUN (9-20) mg/dL Creatinine (0.66-1.25) mg/dL Glucose (74-99) mg/dL POC Glucose (mg/dL) 153 H (75-99) mg/dL Magnesium (1.6-2.3) mg/dL Total Protein (6.3-8.2) g/dL Albumin (3.5-5.0) g/dL Microbiology - Last 24 Hours (Table) 02/28/17 10:50 Blood Culture - Preliminary Blood No Growth after 96 hours Assessment and Plan Plan: 1. Severe sepsis , septic shock secondary to bacteremia and UTI with ESBL present on admission. 2. [ Change in mental status, acute on chronic metabolic encephalopathy]. 3. [ Acute hypoxic respiratory failure secondary to sepsis]. 4. [Acute renal failure, possibly due to prerenal factors with possible chronic kidney disease, stage III 5. [ Hypernatremia Plan: Continue on current medication regime, ertapenem, nebulized bronchodilators, steroids monitoring and symptomatic treatment. Potential thoracentesis per pulmonary. Follow closely with multiple consults. Further recommendations to follow. The impression and plan of care has been dictated as directed. : I performed a H&P examination of this patient and discussed the same with the dictator. I agree with the dictator's note. Any additional findings/opinions/ etc. will be noted.
[2017-03-04] MEDS: ATORVASTATIN 20 MG TAB PO SCH (21:41)
[2017-03-04] MEDS: traZODone HCL 100 MG TAB PO SCH (21:41)
[2017-03-04] MEDS: BENZTROPINE MESYLATE 1 MG TAB PO SCH (21:41)
[2017-03-04 23:35] LABS: Glucose,Whole Blood 121 mg/dL (75-99)
[2017-03-05 04:27] LABS: Anisocytosis Slight; Basophils % (A) 0 %; CH 25.3; CHCM 29.9; Eosinophils % (A) 0 %; HCT 39.3 % (39.0-53.0); HDW 3.11; HGB 11.6 gm/dL (13.0-17.5); Hypochromasia Marked; Luc # (Auto) 0.17; Luc % (Auto) 1; Lymphocytes # (A) 0.7 k/uL (1.0-4.8); Lymphocytes % (A) 5 %; MCHC 29.4 g/dL (31.0-37.0); Mean Platelet Volume 9.4; Monocytes # (A) 0.6 k/uL (0-1.0); Monocytes % (A) 5 %; Neutrophils # (A) 11.7 k/uL (1.3-7.7); Neutrophils % (A) 89 %; RBC 4.63 m/uL (4.30-5.90); RDW 17.4 % (11.5-15.5); WBC 13.2 k/uL (3.8-10.6); WBC (Perox) 14.15
[2017-03-05 04:38] LABS: ALT 37 U/L (21-72); AST 21 U/L (17-59); Alkaline Phosphatase 77 U/L (38-126); Anion Gap 8 mmol/L; Blood Urea Nitrogen 53 mg/dL (9-20); Calcium 8.8 mg/dL (8.4-10.2); Carbon Dioxide 31 mmol/L (22-30); Chloride 108 mmol/L (98-107); Glucose 127 mg/dL (74-99); INR 1.3 (<1.2); Magnesium 2.3 mg/dL (1.6-2.3); Non-African American GFR(MDRD) 60 (>60 ml/min/1.73 sqM); Phosphorous 3.6 mg/dL (2.5-4.5); Potassium 4.1 mmol/L (3.5-5.1); Prothrombin Time 12.6 sec (9.0-12.0); Sodium 147 mmol/L (137-145); Total Bilirubin 0.6 mg/dL (0.2-1.3); Total Protein 5.3 g/dL (6.3-8.2)
[2017-03-05] MEDS: INSULIN LISPRO (humaLOG) 300 UNIT/3 ML VIAL SQ SCH ×4 (06:06→23:52)
[2017-03-05 06:07] LABS: Glucose,Whole Blood 122 mg/dL (75-99)
[2017-03-05] MEDS: DEXTROSE 5% IN WATER 1,000 ML IV SCH (06:07)
[2017-03-05] MEDS: methylPREDNISolone SOD SUCCI 40 MG/ML 1 ML VIAL IV SCH ×4 (06:07→23:53)
[2017-03-05] MEDS: IPRATROPIUM-ALBUTEROL 3 ML NEB INHALATION SCH ×4 (07:22→19:40)
--- NOTE | 2017-03-05 07:30 | XR ---
EXAMINATION TYPE: XR chest 1V portable DATE OF EXAM: 03/05/2017 Comparison: 03/04/2017 Clinical History: 71-year-old male pleural effusion Findings: Heart remains enlarged. Rightward patient rotation altered the normal cardiac and mediastinal contour s. Interval extubation and removal of NG tube. Left subclavian CVC tip at the mid SVC level. Continue d interstitial densities. Small effusions, right greater than left are present with adjacent opacitie s. Effusion on the right appears to have decreased in the interval. Impression: 1. Correlate for continued CHF with pulmonary vascular congestion. 2. Small right greater than left pleural effusions with adjacent atelectasis and/or consolidation, de creasing on the right.
[2017-03-05] MEDS: ERTAPENEM 1 GM in SODIUM CHLORIDE 0.9% 50 ML IVPB SCH (08:24)
[2017-03-05] MEDS: ENOXAPARIN 40 MG/0.4 ML SYRINGE SQ SCH (08:24)
[2017-03-05] MEDS: FUROSEMIDE 40 MG TAB PO SCH (09:34)
[2017-03-05] MEDS: LORazepam 2 MG/ML SYRINGE IV PRN ×2 (09:45→15:40)
[2017-03-05] MEDS ORDERED: PANTOPRAZOLE 40 MG/10 ML VIAL IVP SCH (10:30)
--- NOTE | 2017-03-05 11:25 | P.PN ---
Subjective Patient is seen in follow-up for acute kidney injury. Renal function is improving with creatinine down to 1.2 today. Baseline creatinine is 1. He remains nonoliguric. He was extubated on March 04. Patient presented with hypotension along with generalized weakness. He was noted to be in septic shock with urine and blood culture positive for E. coli. His sputum culture is positive for Demi and yeast species. He is maintained on IV antibiotics. Sodium level a little improved at 147 today. Denies chest pain or shortness of breath. Vital signs are stable. General: Intubated. HEENT: Head exam is unremarkable. Neck is without jugular venous distension. LUNGS: Scattered rhonchi. Breath sounds decreased. HEART: Rate and Rhythm are regular. First and second heart sounds normal. No murmurs, rubs or gallops. ABDOMEN: Abdominal exam reveals normal bowel sounds. Non-tender and non- distended. EXTREMITITES: Trace edema. Objective - Vital Signs Vital signs: Vital Signs Temp 98.4 F 03/05/17 08:00 Pulse 82 03/05/17 09:00 Resp 23 03/05/17 09:00 BP 155/66 03/05/17 09:00 Pulse Ox 91 L 03/05/17 09:00 Intake & Output 03/04/17 03/05/17 03/05/17 18:59 06:59 18:59 Intake Total 1100 600 150 Output Total 1727 1679 350 Balance -627 -5259 -200 Weight 111.7 kg 111.7 kg Intake: IV 150 550 150 Dextrose 5% in Water 1, 550 150 000 ml @ 50 mls/hr IV . Q20H JYOTSNA Rx#:[id number] Ertapenem 1 gm In Sodium 50 Chloride 0.9% 50 ml @ 100 mls/hr IVPB Q24HR JYOTSNA Rx #:[id number] Sodium Chloride 0.9% 1, 100 000 ml @ 20 mls/hr IV . Q24H JYOTSNA Rx#:[id number] Intake, IV Titration 350 50 Amount Dextrose 5% in Water 1, 350 50 000 ml @ 50 mls/hr IV . Q20H JYOTSNA Rx#:[id number] Tube Feeding 200 Other 400 Output: Urine 1725 1675 350 Stool 2 4 Other: Voiding Method Indwelling Catheter Indwelling Catheter Indwelling Catheter # Voids 1 # Bowel Movements 1 1 ABP, PAP, CO, CI - Last Documented Arterial Blood Pressure 145/66 - Labs CBC & Chem 7: 03/05/17 04:10 03/05/17 04:10 Labs: Abnormal Lab Results - Last 24 Hours (Table) 03/04/17 03/04/17 03/04/17 Range/Units 12: 17:55 23:33 WBC (3.8-10.6) k/uL Hgb (13.0-17.5) gm/dL MCHC (31.0-37.0) g/dL RDW (11.5-15.5) % Neutrophils # (1.3-7.7) k/uL Lymphocytes # (1.0-4.8) k/uL PT (9.0-12.0) sec INR (<1.2) Sodium (137-145) mmol/L Chloride (98-107) mmol/L Carbon Dioxide (22-30) mmol/L BUN (9-20) mg/dL Glucose (74-99) mg/dL POC Glucose (mg/dL) 153 H 128 H 121 H (75-99) mg/dL Total Protein (6.3-8.2) g/dL Albumin (3.5-5.0) g/dL 03/05/17 03/05/17 03/05/17 Range/Units 04:10 04:10 04:10 WBC 13.2 H (3.8-10.6) k/uL Hgb 11.6 L (13.0-17.5) gm/dL MCHC 29.4 L (31.0-37.0) g/dL RDW 17.4 H (11.5-15.5) % Neutrophils # 11.7 H (1.3-7.7) k/uL Lymphocytes # 0.7 L (1.0-4.8) k/uL PT 12.6 H (9.0-12.0) sec INR 1.3 H (<1.2) Sodium 147 H (137-145) mmol/L Chloride 108 H (98-107) mmol/L Carbon Dioxide 31 H (22-30) mmol/L BUN 53 H (9-20) mg/dL Glucose 127 H (74-99) mg/dL POC Glucose (mg/dL) (75-99) mg/dL Total Protein 5.3 L (6.3-8.2) g/dL Albumin 2.6 L (3.5-5.0) g/dL 03/05/17 Range/Units 06:05 WBC (3.8-10.6) k/uL Hgb (13.0-17.5) gm/dL MCHC (31.0-37.0) g/dL RDW (11.5-15.5) % Neutrophils # (1.3-7.7) k/uL Lymphocytes # (1.0-4.8) k/uL PT (9.0-12.0) sec INR (<1.2) Sodium (137-145) mmol/L Chloride (98-107) mmol/L Carbon Dioxide (22-30) mmol/L BUN (9-20) mg/dL Glucose (74-99) mg/dL POC Glucose (mg/dL) 122 H (75-99) mg/dL Total Protein (6.3-8.2) g/dL Albumin (3.5-5.0) g/dL Microbiology - Last 24 Hours (Table) 02/28/17 10:50 Blood Culture - Preliminary Blood No Growth after 96 hours Assessment and Plan Plan: Assessment: #1. Nonoliguric acute kidney injury secondary to ischemic ATN secondary to septic shock. Creatinine peaked at 3.8 this admission and is down to 1.2 today. Baseline creatinine is near 1. #2. Septic shock secondary to E. coli bacteremia and UTI. Sputum culture positive for Demi. #3. Hypotension secondary to septic shock. Resolved. #4 Metabolic acidosis secondary to acute kidney injury and IV fluids. Resolved. #5. Hypernatremia secondary to lack of oral water intake. Plan: Continue D5W to be run at 50 mL an hour. Avoid nephrotoxic agents and hypotensive episodes. Continue to monitor renal function and urine output. Abx per ID reccs. Continue lasix 40 mg daily. Expect further improvement in sodium as his oral intake improves.
--- NOTE | 2017-03-05 11:46 | P.PN ---
Subjective Principal diagnosis: Acute septic shock secondary to E. coli urinary tract infection. A 71-year-old male patient who was admitted yesterday through the emergency department because of nausea, diminished oral intake, generalized weakness and lethargy. The patient apparently had dropped his oral intake and he was feeling progressively more weak. Denied having any chest pain. No cough or sputum production. No abdominal pain or abdominal distention. The patient was felt to be septic of a urinary source. His white cell count was elevated at 28.5 and the patient was also in acute kidney injury. Lactic acid was nonelevated. The patient's urinalysis was significant abnormal with significant number of white cell count and bacteria and the urine itself was quite dirty. The Acrrasco catheter was inserted. The patient was started on a combination of vancomycin and Zosyn and he was admitted to the medical floor. This afternoon, the patient became hypotensive and diaphoretic. His blood pressure dropped down to the 50s systolic. At the same time the patient became tachycardic with a heart rate of 120. He was also becoming progressively more lethargic. He was on 6 L oxygen nasal cannula and his pulse ox was around 94%. The patient was brought into the intensive care unit. A triple lumen catheter was inserted. The patient was on IV fluids and pressors. For now the patient is already received 1-1/2 L of IV fluid in the form of normal saline. Levo fed was also initiated at 10 mics initially and currently it's at 30 mics. Urine output is diminished at this point. The patient was subsequently intubated as the patient did not he felt to be awake enough to protect his airway and he be has becoming progressively more hypoxic. I intubated this patient and put him on a mechanical ventilator on assist control mode at the rate of 24, tidal volume 500, PEEP of 5 and FiO2 100%. The patient will have a blood gases and chest x-ray done and these are still pending for now. The patient is known to me. Of taking care of him during a recent bout of sepsis and respiratory failure. The patient came into the ICU last month unresponsive and he was and CO2 narcosis. He was also in acute respiratory failure. He was a shock on pressors. Echocardiogram back then showed an ejection fraction of 40-45% with secondary pulmonary hypertension. CT angios the chest showed no evidence of any pulmonary embolism and there was a tonic right-sided pleural effusion. The patient was ultimately stabilized. He was assumed to have a right lower lobe pneumonia which was treated. All of the cultures came back negative. He was extubated. His acute kidney injury recovered. He was discharged to [facility] on a course of Levaquin On 02/28/2017 the patient is being seen in a follow-up. As mentioned earlier, the patient has gone into respiratory failure due to a complicated urinary tract infection septic shock. He was also intubated and placed on a mechanical ventilator. This morning, his FiO2 is down to 40% with a PEEP of 5 and he has a tidal volume of 500 with a rate of 24. His chest x-ray shows a chronic right- sided pleural effusion and the ET tube is in a good location and the patient has a left subclavian triple-lumen catheter in place. Also, the blood gas shows a pH of 7.37 with a pCO2 of 40 and pO2 of 115. Hemodynamically, the patient has been adequately resuscitated IV fluids. The patient is currently off pressors. White cell count is down to 20.5. The patient has gram-negative bacilli in his blood. ID is on the case. He is a currently on a combination of Zosyn and Levaquin. Vancomycin was discontinued. The patient is producing adequate amount of urine output. He is still in acute kidney injury yet his is nonoliguric. He is producing adequate amount of urine output. Blood sugars under good control. We'll start low-grade/rate tube feeds on him today. I discussed the case with his brother the bedside. On 03/01/2017 the patient is being seen in follow-up. He remains on assist control mode of ventilation with a rate of 24, tidal volume of 500 with an FiO2 of 40% and PEEP of 5. Peak airway pressures around 30 to anesthetic pressures around 20 and on today's evaluation is slightly bronchospastic and wheezy. He was given a sedation holiday. The weaning parameters was checked was poor. He was given a brief this point is breathing trial if her support of 5 and a PEEP of 5 which she was unable to tolerate as the patient became tachypneic and tachycardic. The trial was aborted. The patient is off sedation for now. He is calm and comfortable. Hemodynamically stable. He is off pressors. Function is improving and creatinine is down to 3. White cell count is also improving. Is down to 18. The blood culture was positive for E. coli which is an ESBL producing organism. The patient is on Zosyn and Levaquin and I think this may need to be switched to an antibiotic that covers ESBL, probably Merrem and for that reason this will be discussed with infectious disease. We'll start tube feeds. Possibly no extubation today based on the fifth spontaneous breathing trial. We'll may try the same prosthetic and around 2:00. I came to realize that was felt to put the patient on breathing treatments after being on the mechanical ventilator. He is also known to have COPD. Patient was reevaluated today on 03/02/2017, remains on mechanical ventilation, vent settings are tidal volume of 500, assist control rate of 24 FiO2 of 40% and PEEP of 5. ABG showed a pO2 of 95 pCO2 of 37 pH of 7.41. Basic metabolic profile was relatively normal, however BUN is 70 creatinine is 2.44. Renal profile seems to be steadily improving over the last few days. Peak airway pressure is about 32 plateau pressures about 20. Patient is presently off pressors, however according to the nurses when he was weaned off sedation, he became extremely agitated and restless tachycardic and tachypneic. Hence he had to be placed back on propofol. Patient is now on ertapenem for ESBL producing organism/E. coli. Patient is also on nutritional support via enteral feeding. Chest x-ray was reviewed and there seems to be evidence of right basilar atelectasis, and possibly small or moderate pleural effusion on the right side. May eventually consider ultrasound guided thoracentesis if his chest x-ray does not show much improvement. Patient was reevaluated today on 03/03/2017, remains on mechanical ventilation, ventilator settings as noted above, unchanged, ABG reviewed pO2 of 99 pCO2 of 37 pH of 7.45. CBC is relatively unremarkable. Chest x-ray continues to show a significant amount of consolidation of the right lower lobe and possibly a right parapneumonic effusion. Renal profile was reviewed, sodium remains a bit elevated although the patient is receiving free water via nasogastric tube. Creatinine is improving, 1.96 today. BUN is 68. Patient is arousable, follows simple instructions shortly after sedation was placed on hold. However I'm waiting until he is more awake, and I would likely recommend a short trial using pressure support and CPAP. Patient was reevaluated today on 03/04/2017, remains on mechanical ventilation, ventilator settings are unchanged, ABG was reviewed, chest x-ray continues to show right lower lobe consolidation and right parapneumonic effusion. Patient is hemodynamically stable, seems to be quite arousable, follows simple instructions, patient was given about 1 hour trial of pressure support and CPAP , and he was noted to tolerate the weaning mode quite well. Hence patient was extubated while I was at bedside to a nasal cannula 4 L/m. CBC was relatively normal. ABG showed a pO2 of 106 pCO2 of 40 pH of 7.47. Sodium 148 BUN is 63 creatinine is 1.50. His renal profile has been gradually improving since the day of admission. Chest x-ray was also reviewed there may be a slight improvement, the right pleural effusion seems to be borderline, I'm still debating whether to proceed with thoracentesis, but this would likely be done, if the pleural effusion gets any worse. Patient was reevaluated today on 03/05/2017, patient was extubated yesterday on , tolerated the extubation better than expected. Patient is now on nasal cannula at 4 L, relatively asymptomatic. Patient is a bit confused, however he knows that he is at [facility], and he knows the year. Patient denies any shortness of breath, no cough, no wheezing. Remains hemodynamically stable, not requiring any pressors. Urine output has been excellent and renal functioning has been steadily improving almost back to normal today. Chest x-ray continues to show some right lower lobe consolidation and right parapneumonic effusion presently too small to consider thoracentesis. CBC is relatively unremarkable. Electrolytes are relatively normal except for sodium of 147 BUN is 53 creatinine is 1.20. Patient will have a swallow evaluation, and if he does well will start oral feeding. Patient is not quite ready to be transferred out of the ICU, I plan to keep him for the next 24 hours, and if he continues to do well with planned transfer out of the ICU tomorrow. Objective - Vital Signs Vital signs: Vital Signs Temp 98.4 F 03/05/17 08:00 Pulse 82 03/05/17 09:00 Resp 23 03/05/17 09:00 BP 155/66 03/05/17 09:00 Pulse Ox 91 L 03/05/17 09:00 Intake & Output 03/04/17 03/05/17 03/05/17 18:59 06:59 18:59 Intake Total 1100 600 150 Output Total 1727 1679 350 Balance -627 -1079 -200 Weight 111.7 kg 111.7 kg Intake: IV 150 550 150 Dextrose 5% in Water 1, 550 150 000 ml @ 50 mls/hr IV . Q20H [facility] Rx#:[id number] Ertapenem 1 gm In Sodium 50 Chloride 0.9% 50 ml @ 100 mls/hr IVPB Q24HR [facility] Rx #:[id number] Sodium Chloride 0.9% 1, 100 000 ml @ 20 mls/hr IV . Q24H [facility] Rx#:[id number] Intake, IV Titration 350 50 Amount Dextrose 5% in Water 1, 350 50 000 ml @ 50 mls/hr IV . Q20H [facility] Rx#:[id number] Tube Feeding 200 Other 400 Output: Urine 1725 1675 350 Stool 2 4 Other: Voiding Method Indwelling Catheter Indwelling Catheter Indwelling Catheter # Voids 1 # Bowel Movements 1 1 ABP, PAP, CO, CI - Last Documented Arterial Blood Pressure 145/66 - Exam Physical Exam: Revealed a 71-year-old white male on nasal cannula, in no distress. HEENT:[Neck is supple.] [No neck masses.] [No thyromegaly.] [No JVD.] Chest: [Diminished breath sounds at the bases, minimal crackles at the right base. Cardiac Exam: [Normal S1 and S2, no S3 gallop, no murmur.] Abdomen: [Soft, nontender, no megaly, no rebound, no guarding, normal bowel sounds.] Extremities: [No clubbing, no edema, no cyanosis.] Neurological Exam: No focal neurologic deficit - Labs CBC & Chem 7: 03/05/17 04:10 03/05/17 04:10 Labs: Abnormal Lab Results - Last 24 Hours (Table) 03/04/17 03/04/17 03/04/17 Range/Units 12:17 17:55 23:33 WBC (3.8-10.6) k/uL Hgb (13.0-17.5) gm/dL MCHC (31.0-37.0) g/dL RDW (11.5-15.5) % Neutrophils # (1.3-7.7) k/uL Lymphocytes # (1.0-4.8) k/uL PT (9.0-12.0) sec INR (<1.2) Sodium (137-145) mmol/L Chloride (98-107) mmol/L Carbon Dioxide (22-30) mmol/L BUN (9-20) mg/dL Glucose (74-99) mg/dL POC Glucose (mg/dL) 153 H 128 H 121 H (75-99) mg/dL Total Protein (6.3-8.2) g/dL Albumin (3.5-5.0) g/dL 03/05/17 03/05/17 03/05/17 Range/Units 04:10 04:10 04:10 WBC 13.2 H (3.8-10.6) k/uL Hgb 11.6 L (13.0-17.5) gm/dL MCHC 29.4 L (31.0-37.0) g/dL RDW 17.4 H (11.5-15.5) % Neutrophils # 11.7 H (1.3-7.7) k/uL Lymphocytes # 0.7 L (1.0-4.8) k/uL PT 12.6 H (9.0-12.0) sec INR 1.3 H (<1.2) Sodium 147 H (137-145) mmol/L Chloride 108 H (98-107) mmol/L Carbon Dioxide 31 H (22-30) mmol/L BUN 53 H (9-20) mg/dL Glucose 127 H (74-99) mg/dL POC Glucose (mg/dL) (75-99) mg/dL Total Protein 5.3 L (6.3-8.2) g/dL Albumin 2.6 L (3.5-5.0) g/dL 03/05/17 Range/Units 06:05 WBC (3.8-10.6) k/uL Hgb (13.0-17.5) gm/dL MCHC (31.0-37.0) g/dL RDW (11.5-15.5) % Neutrophils # (1.3-7.7) k/uL Lymphocytes # (1.0-4.8) k/uL PT (9.0-12.0) sec INR (<1.2) Sodium (137-145) mmol/L Chloride (98-107) mmol/L Carbon Dioxide (22-30) mmol/L BUN (9-20) mg/dL Glucose (74-99) mg/dL POC Glucose (mg/dL) 122 H (75-99) mg/dL Total Protein (6.3-8.2) g/dL Albumin (3.5-5.0) g/dL Microbiology - Last 24 Hours (Table) 02/28/17 10:50 Blood Culture - Preliminary Blood No Growth after 96 hours Assessment and Plan Plan: 1 septic shock secondary to a E. coli urinary tract infection. The patient has been adequately resuscitated with IV fluids. The patient's blood pressure is normalized and currently is off pressors. It is an ESBL producing organism. Patient is already on ertapenem. 2 shock secondary to above. This is septic shock. 3 E. coli /ESBL producing organism sepsis secondary to a urinary tract infection 4 acute respiratory failure secondary to above. Currently intubated on mechanical ventilator. The patient is broken spastic and wheezy on today's evaluation. He'll be started on DuoNeb nebulized treatments and steroids. 5 chronic right-sided pleural effusion small to moderate in size, patient will have ultrasound today, if the fluid is large enough and freely moving, may consider thoracentesis. 6 Obesity 7 acute kidney injury, improving 8 chronic psychiatric disorder and the patient has been maintained on multiple psychotropic medication including Abilify, trazodone, Cogentin and Lamictal on outpatient basis. He has underlying PTSD/bipolar disorder/depression 9 COPD 10 correction resident 11 hypertension 12 hyperlipidemia 13 chronic smoker 14 preserved LV function based on recent echocardiogram with an ejection fraction of 40% 15 status post extubation after a trial of pressure support and CPAP, this was done on . Recommendation: Patient was extubated on 03/04/2017, continues to tolerate the extubation well, continue incentive spirometry, swallow evaluation today, physical therapy, possible transfer out of the ICU in the next 24 hours. Time with Patient: Less than 30
[2017-03-05 12:06] LABS: Glucose,Whole Blood 124 mg/dL (75-99)
[2017-03-05 17:56] LABS: Glucose,Whole Blood 126 mg/dL (75-99)
--- NOTE | 2017-03-05 19:20 | P.PN ---
Subjective Progress Note dictated for Dr. Curry. 03/03/17 Interval history: This a 71-year-old gentleman admitted with severe sepsis secondary to ESBL bacteremia,UTI, acute on chronic metabolic encephalopathy, acute hypoxic respiratory failure and acute renal failure and multiple other medical issues. Off pressors. Maintained on mechanical ventilation of 40% FiO2/ +5 of PEEP. Suctioning tenacious white secretions from endotracheal tube .Yesterday tolerated initial CPAP for about 15 minutes, today tolerated longer for nearly an hour and then became tachycardic; returned to mechanical ventilation. Tolerating tube feeds at goal with minimal to no residuals. Sodium elevated at 149, water flushes increased. Renal function improving. Chest x-ray reporting persistent airspace consolidation right lower lobe with associated pleural effusions without failure. Ultrasound of chest performed with left-sided Marked for potential thoracentesis. 03/04/2017 extubated this morning, currently maintaining on 4 L nasal cannula .Chest x-ray reporting slightly improving pulmonary vascular congestion, moderate right small left pleural effusion, adjacent atelectasis and/or consolidation. Pulmonary discussing potential thoracentesis. Positive bowel movement. Telemetry sinus rhythm with occasional PVCs and PACs. IV fluids changed to D5W secondary to hypernatremia as patient no longer receiving free water flushes. Sodium currently 148. 03/05/2017. Confusion improving, maintained on 4 L nasal cannula. Chest x-ray reporting decreasing small right greater than left pleural effusions with adjacent atelectasis/consolidation, pulmonary vascular congestion. Diarrhea lessening, with a couple episodes last night and once this morning; tested negative for C. difficile colitis. Renal function continues to improve. Underwent swallow evaluation, results pending. Maintained on D5W IV fluid hydration, Sodium 147. Review of systems: HEENT: Denies headache or focal deficits. Denies any dizziness or lightheadedness. Respiratory: Denies any increased shortness of breath, no cough, denies wheezing Cardiac: Denies any chest pain, palpitations. GI: Denies any nausea, vomiting, less diarrhea. Denies any abdominal tenderness. : Denies any dysuria. Psychiatry: Denies any anxiety or depression. Active Medications Albuterol/Ipratropium (Duoneb 0.5 Mg-3 Mg/3 Ml Soln) 3 ml INHALATION RT-QID [facility] Last Admin: 03/05/17 15:16 Dose: 3 ml Atorvastatin Calcium (Lipitor) 20 mg PO HS [facility] Last Admin: 03/04/17 21:41 Dose: Not Given Benztropine Mesylate (Cogentin) 2 mg PO [facility] Last Admin: 03/04/17 21:41 Dose: Not Given Enoxaparin Sodium (Lovenox) 40 mg SQ DAILY [facility] Last Admin: 03/05/17 08:24 Dose: 40 mg Furosemide (Lasix) 40 mg PO DAILY [facility] Last Admin: 03/05/17 09:34 Dose: 40 mg Haloperidol Lactate (Haldol) 3 mg IM Q6HR PRN PRN Reason: Agitation or Acute Psychosis Norepinephrine Bitartrate (Levophed-0.9% Nacl 16 Mg/250ml Pmx) 16 mg in 250 mls @ 0 mls/hr IV .Q0M [facility]; Titrate PRN Reason: Protocol Last Titration: 02/28/17 08:30 Dose: 0 mcg/min, 0 mls/hr Ertapenem 1 gm/ Sodium (Chloride) 50 mls @ 100 mls/hr IVPB Q24HR [facility] Last Admin: 03/05/17 08:24 Dose: 100 mls/hr Dextrose/Water (Dextrose 5%-Water Iv Soln) 1,000 mls @ 50 mls/hr IV .Q20H [facility] Last Admin: 03/05/17 06:07 Dose: 50 mls/hr Insulin Human Lispro (Humalog) 0 unit SQ Q6H [facility] PRN Reason: Protocol Last Admin: 03/05/17 18:12 Dose: Not Given Lorazepam (Ativan) 0.5 mg IV Q6HR PRN PRN Reason: Agitation Last Admin: 03/05/17 15:40 Dose: 0.5 mg Methylprednisolone Sodium Succinate (Solu-Medrol) 40 mg IV Q6HR [facility] Last Admin: 03/05/17 18:13 Dose: 40 mg Miscellaneous Information (Potassium Per Protocol) 1 each MISCELLANE DAILY PRN ; Protocol PRN Reason: Per Protocol Naloxone HCl (Narcan) 0.2 mg IV Q2M PRN PRN Reason: Opioid Reversal Pantoprazole Sodium (Protonix) 40 mg PO AC-BRKFST [facility] Trazodone HCl (Desyrel) 100 mg PO [facility] Last Admin: 03/04/17 21:41 Dose: Not Given Objective - Vital Signs Vital signs: Vital Signs Temp 99.3 F 03/05/17 16:00 Pulse 95 03/05/17 19:00 Resp 25 H 03/05/17 19:00 BP 135/63 03/05/17 19:00 Pulse Ox 95 03/05/17 19:00 Intake & Output 03/05/17 03/05/17 03/06/17 06:59 18:59 06:59 Intake Total 600 1200 50 Output Total 1679 1601 125 Balance -1079 -401 -75 Weight 111.7 kg 111.7 kg Intake: IV 550 600 50 Dextrose 5% in Water 1, 550 600 50 000 ml @ 50 mls/hr IV . Q20H [facility] Rx#:[id number] Intake, IV Titration 50 Amount Dextrose 5% in Water 1, 50 000 ml @ 50 mls/hr IV . Q20H [facility] Rx#:[id number] Oral 600 Output: Urine 1675 1600 125 Stool 4 1 Other: Voiding Method Indwelling Catheter Indwelling Catheter # Voids 1 # Bowel Movements 1 1 ABP, PAP, CO, CI - Last Documented Arterial Blood Pressure 145/66 - Exam PHYSICAL EXAM: VITAL SIGNS: As above GENERAL: [Sitting up in bed, no acute distress HEENT: [Pupils equal conjunctiva normal.] NECK: [Supple, no JVD] RESPIRATORY EFFORT:[ Normal] LUNGS: [Diminished, fine right basilar crackles, scattered rhonchi, no wheezing ] CARDIOVASCULAR[ regular S1 and S2, no murmurs rubs or gallop, no edema] GI: [Abdomen soft, nontender, positive bowel sounds.] PSYCH/NEURO: Alert and oriented 2, confusion improving, following simple commands, moves all 4 extremities, strength and sensation grossly intact. Microbiology 02/28/17 10:50 Blood Blood Culture - Preliminary No Growth after 120 hours 02/27/17 23:22 Sputum Gram Stain - Final 02/27/17 23:22 Sputum Sputum Culture - Final Demi albicans Demi glabrata 02/27/17 12:01 Blood Blood Culture Gram Stain - Final 02/27/17 12:01 Blood Blood Culture - Final Escherichia coli 02/26/17 22:35 Urine,Voided Urine Culture - Final Escherichia coli 02/26/17 19:05 Blood Blood Culture Gram Stain - Final 02/26/17 19:05 Blood Blood Culture - Final Escherichia coli 02/26/17 19:05 Blood Blood Culture Gram Stain - Final 02/26/17 19:05 Blood Blood Culture - Final Escherichia coli 02/27/17 12:01 Blood Blood Culture - Final 02/26/17 19:05 Blood Blood Culture - Final 02/26/17 19:05 Blood Blood Culture - Final - Labs CBC & Chem 7: 03/05/17 04:10 03/05/17 04:10 Labs: Abnormal Lab Results - Last 24 Hours (Table) 03/04/17 03/05/17 03/05/17 Range/Units 23:33 04:10 04:10 WBC 13.2 H (3.8-10.6) k/uL Hgb 11.6 L (13.0-17.5) gm/dL MCHC 29.4 L (31.0-37.0) g/dL RDW 17.4 H (11.5-15.5) % Neutrophils # 11.7 H (1.3-7.7) k/uL Lymphocytes # 0.7 L (1.0-4.8) k/uL PT 12.6 H (9.0-12.0) sec INR 1.3 H (<1.2) Sodium (137-145) mmol/L Chloride (98-107) mmol/L Carbon Dioxide (22-30) mmol/L BUN (9-20) mg/dL Glucose (74-99) mg/dL POC Glucose (mg/dL) 121 H (75-99) mg/dL Total Protein (6.3-8.2) g/dL Albumin (3.5-5.0) g/dL 03/05/17 03/05/17 03/05/17 Range/Units 04:10 06:05 12:04 WBC (3.8-10.6) k/uL Hgb (13.0-17.5) gm/dL MCHC (31.0-37.0) g/dL RDW (11.5-15.5) % Neutrophils # (1.3-7.7) k/uL Lymphocytes # (1.0-4.8) k/uL PT (9.0-12.0) sec INR (<1.2) Sodium 147 H (137-145) mmol/L Chloride 108 H (98-107) mmol/L Carbon Dioxide 31 H (22-30) mmol/L BUN 53 H (9-20) mg/dL Glucose 127 H (74-99) mg/dL POC Glucose (mg/dL) 122 H 124 H (75-99) mg/dL Total Protein 5.3 L (6.3-8.2) g/dL Albumin 2.6 L (3.5-5.0) g/dL 03/05/17 Range/Units 17:55 WBC (3.8-10.6) k/uL Hgb (13.0-17.5) gm/dL MCHC (31.0-37.0) g/dL RDW (11.5-15.5) % Neutrophils # (1.3-7.7) k/uL Lymphocytes # (1.0-4.8) k/uL PT (9.0-12.0) sec INR (<1.2) Sodium (137-145) mmol/L Chloride (98-107) mmol/L Carbon Dioxide (22-30) mmol/L BUN (9-20) mg/dL Glucose (74-99) mg/dL POC Glucose (mg/dL) 126 H (75-99) mg/dL Total Protein (6.3-8.2) g/dL Albumin (3.5-5.0) g/dL Microbiology - Last 24 Hours (Table) 02/28/17 10:50 Blood Culture - Preliminary Blood No Growth after 120 hours Assessment and Plan Plan: 1. Severe sepsis , septic shock secondary to bacteremia and UTI with ESBL present on admission. 2. [ Change in mental status, acute on chronic metabolic encephalopathy]. 3. [ Acute hypoxic respiratory failure secondary to sepsis]. 4. [Acute renal failure, possibly due to prerenal factors with possible chronic kidney disease, stage III 5. [ Hypernatremia Plan: Continue on current medication regime, ertapenem, nebulized bronchodilators, steroids monitoring and symptomatic treatment. Maintain D5W IV fluid hydration related to hypernatremia. No thoracentesis recommended per pulmonary. Follow closely with multiple consults. Further recommendations to follow. The impression and plan of care has been dictated as directed. : I performed a H&P examination of this patient and discussed the same with the dictator. I agree with the dictator's note. Any additional findings/opinions/ etc. will be noted.
[2017-03-05] MEDS: ATORVASTATIN 20 MG TAB PO SCH (20:11)
[2017-03-05] MEDS: BENZTROPINE MESYLATE 1 MG TAB PO SCH (20:11)
[2017-03-05] MEDS: traZODone HCL 100 MG TAB PO SCH (20:11)
[2017-03-05 20:35] LABS: Magnesium 2.1 mg/dL (1.6-2.3); Potassium 3.9 mmol/L (3.5-5.1)
[2017-03-05] MEDS: POTASSIUM CHLORIDE 10 MEQ in WATER FOR INJECTION 1 100ML.BAG IVPB SCH ×2 (21:26→22:14)
--- NOTE | 2017-03-05 22:41 | P.PN ---
Subjective Principal diagnosis: Respiratory failure 71-year-old male who is known to the pulmonary service from his hospitalization last month which point in time he had a bout of respiratory failure requiring intubation and mechanical ventilation and antibiotic therapy. Eventually improved and was discharged to [facility]. Was treated with a course of antibiotics of levofloxacin. Currently was doing well until the patient in the last day before admission became considerably more week. He was not having significant other symptoms except his profound weakness. He Was Brought to the Emergency Center Where He Was Found Evidence an Extensive Leukocytosis. Within Hours of Admission He Became Worse. He Developed Significant Hypotension and Tachycardia. Because of This He Was Transferred to the Intensive Care Unit. He Became More Hypotensive despite Fluids and Required Vasopressor Therapy. Respiratory Failure Occurred and He Required Intubation and Sedation Mechanical Ventilation. Patient remains sedated and ventilated at this time. He is however off of vasopressor therapy. Extubated and tolerated this well Objective - Vital Signs Vital signs: Vital Signs Temp 98.4 F 03/05/17 20:00 Pulse 74 03/05/17 22:00 Resp 30 H 03/05/17 22:00 BP 118/53 03/05/17 22:00 Pulse Ox 98 03/05/17 22:00 Intake & Output 03/05/17 03/05/17 03/06/17 06:59 18:59 06:59 Intake Total 600 1200 660 Output Total 1679 1601 625 Balance -1079 -401 35 Weight 111.7 kg 111.7 kg Intake: IV 550 600 300 Dextrose 5% in Water 1, 550 600 200 000 ml @ 50 mls/hr IV . Q20H [facility] Rx#:[id number] Potassium Chloride 10 meq 100 In Water For Injection 1 100ml.bag @ 100 mls/hr IVPB Q1H [facility] Rx#: [id number] Intake, IV Titration 50 Amount Dextrose 5% in Water 1, 50 000 ml @ 50 mls/hr IV . Q20H [facility] Rx#:[id number] Oral 600 360 Output: Urine 1675 1600 625 Stool 4 1 Other: Voiding Method Indwelling Catheter Indwelling Catheter Indwelling Catheter # Voids 1 # Bowel Movements 1 1 ABP, PAP, CO, CI - Last Documented Arterial Blood Pressure 145/66 - Exam 71-year-old male extubated HEENT: Anicteric conjunctiva are pink and moist nasal mucosa grossly intact without significant lesions, there is no thrush. Edentulous Neck: The neck is supple without significant lymphadenopathy or thyromegaly. Lungs: There are symmetrical air entry. basilar crackles are heard. Expiratory wheezes. Heart: Regular rate and rhythm with an audible S1-S2, no S3 loud S4 There is no significant murmur click or rub, PMI was nondisplaced. Abdomen: Positive bowel sounds soft and nontender without palpable masses or organomegaly. There was no guarding or rebound. Extremities: The upper and fluctuance have mild generalized edema. Extremities are cool to touch. ulcerations are seen. Neuro: awake and alert - Labs CBC & Chem 7: 03/05/17 04:10 03/05/17 20:00 Labs: Abnormal Lab Results - Last 24 Hours (Table) 03/04/17 03/05/17 03/05/17 Range/Units 23:33 04:10 04:10 WBC 13.2 H (3.8-10.6) k/uL Hgb 11.6 L (13.0-17.5) gm/dL MCHC 29.4 L (31.0-37.0) g/dL RDW 17.4 H (11.5-15.5) % Neutrophils # 11.7 H (1.3-7.7) k/uL Lymphocytes # 0.7 L (1.0-4.8) k/uL PT 12.6 H (9.0-12.0) sec INR 1.3 H (<1.2) Sodium (137-145) mmol/L Chloride (98-107) mmol/L Carbon Dioxide (22-30) mmol/L BUN (9-20) mg/dL Glucose (74-99) mg/dL POC Glucose (mg/dL) 121 H (75-99) mg/dL Total Protein (6.3-8.2) g/dL Albumin (3.5-5.0) g/dL 03/05/17 03/05/17 03/05/17 Range/Units 04:10 06:05 12:04 WBC (3.8-10.6) k/uL Hgb (13.0-17.5) gm/dL MCHC (31.0-37.0) g/dL RDW (11.5-15.5) % Neutrophils # (1.3-7.7) k/uL Lymphocytes # (1.0-4.8) k/uL PT (9.0-12.0) sec INR (<1.2) Sodium 147 H (137-145) mmol/L Chloride 108 H (98-107) mmol/L Carbon Dioxide 31 H (22-30) mmol/L BUN 53 H (9-20) mg/dL Glucose 127 H (74-99) mg/dL POC Glucose (mg/dL) 122 H 124 H (75-99) mg/dL Total Protein 5.3 L (6.3-8.2) g/dL Albumin 2.6 L (3.5-5.0) g/dL 03/05/17 Range/Units 17:55 WBC (3.8-10.6) k/uL Hgb (13.0-17.5) gm/dL MCHC (31.0-37.0) g/dL RDW (11.5-15.5) % Neutrophils # (1.3-7.7) k/uL Lymphocytes # (1.0-4.8) k/uL PT (9.0-12.0) sec INR (<1.2) Sodium (137-145) mmol/L Chloride (98-107) mmol/L Carbon Dioxide (22-30) mmol/L BUN (9-20) mg/dL Glucose (74-99) mg/dL POC Glucose (mg/dL) 126 H (75-99) mg/dL Total Protein (6.3-8.2) g/dL Albumin (3.5-5.0) g/dL Microbiology - Last 24 Hours (Table) 02/28/17 10:50 Blood Culture - Preliminary Blood No Growth after 120 hours Laboratory Results WBC 13.2 k/uL (3.8-10.6) H 03/05/17 04:10 RBC 4.63 m/uL (4.30-5.90) 03/05/17 04:10 Hgb 11.6 gm/dL (13.0-17.5) L 03/05/17 04:10 Hct 39.3 % (39.0-53.0) 03/05/17 04:10 MCV 85.0 fL (80.0-100.0) 03/05/17 04:10 MCH 25.0 pg (25.0-35.0) 03/05/17 04:10 MCHC 29.4 g/dL (31.0-37.0) L 03/05/17 04:10 RDW 17.4 % (11.5-15.5) H 03/05/17 04:10 Plt Count 191 k/uL (150-450) 03/05/17 04:10 Neutrophils % 89 % 03/05/17 04:10 Lymphocytes % 5 % 03/05/17 04:10 Monocytes % 5 % 03/05/17 04:10 Eosinophils % 0 % 03/05/17 04:10 Basophils % 0 % 03/05/17 04:10 Neutrophils # 11.7 k/uL (1.3-7.7) H 03/05/17 04:10 Lymphocytes # 0.7 k/uL (1.0-4.8) L 03/05/17 04:10 Monocytes # 0.6 k/uL (0-1.0) 03/05/17 04:10 Eosinophils # 0.0 k/uL (0-0.7) 03/05/17 04:10 Basophils # 0.0 k/uL (0-0.2) 03/05/17 04:10 Hypochromasia Marked 03/05/17 04:10 Anisocytosis Slight 03/05/17 04:10 PT 12.6 sec (9.0-12.0) H 03/05/17 04:10 INR 1.3 (<1.2) H 03/05/17 04:10 APTT 27.0 sec (22.0-30.0) 02/26/17 19:05 D-Dimer 4.65 mg/L FEU (<0.60) H 02/26/17 19:05 Sample Site lrad 03/04/17 07:35 ABG pH 7.47 (7.35-7.45) H 03/04/17 07:35 ABG pCO2 40 mmHg (35-45) 03/04/17 07:35 ABG pO2 106 mmHg (83-108) 03/04/17 07:35 ABG HCO3 29 mmol/L (21-25) H 03/04/17 07:35 ABG Total CO2 30 mmol/L (19-24) H 03/04/17 07:35 ABG O2 Saturation 98.0 % (94-97) H 03/04/17 07:35 ABG Base Excess 4.8 mmol/L 03/04/17 07:35 FiO2 40 % 03/04/17 07:35 Sodium 147 mmol/L (137-145) H 03/05/17 04:10 Potassium 3.9 mmol/L (3.5-5.1) 03/05/17 20:00 Chloride 108 mmol/L (98-107) H 03/05/17 04:10 Carbon Dioxide 31 mmol/L (22-30) H 03/05/17 04:10 Anion Gap 8 mmol/L 03/05/17 04:10 BUN 53 mg/dL (9-20) H 03/05/17 04:10 Creatinine 1.20 mg/dL (0.66-1.25) 03/05/17 04:10 Est GFR (MDRD) Af Amer >60 (>60 ml/min/1.73 sqM) 03/05/17 04:10 Est GFR (MDRD) Non-Af 60 (>60 ml/min/1.73 sqM) 03/05/17 04:10 Glucose 127 mg/dL (74-99) H 03/05/17 04:10 POC Glucose (mg/dL) 126 mg/dL (75-99) H 03/05/17 17:55 POC Glu Half Section Ironer Duncan Thornton 03/05/17 17:55 Lactic Ac Sepsis Rflx Y 02/26/17 19:53 Plasma Lactic Acid Ezequiel 1.1 mmol/L (0.7-2.0) 02/27/17 17:06 Calcium 8.8 mg/dL (8.4-10.2) 03/05/17 04:10 Phosphorus 3.6 mg/dL (2.5-4.5) 03/05/17 04:10 Magnesium 2.1 mg/dL (1.6-2.3) 03/05/17 20:00 Total Bilirubin 0.6 mg/dL (0.2-1.3) 03/05/17 04:10 AST 21 U/L (17-59) 03/05/17 04:10 ALT 37 U/L (21-72) 03/05/17 04:10 Alkaline Phosphatase 77 U/L (38-126) 03/05/17 04:10 Total Creatine Kinase 39 U/L (55-170) L 02/26/17 19:05 CK-MB (CK-2) 0.6 ng/mL (0.0-2.4) 02/26/17 19:05 CK-MB (CK-2) Rel Index 1.5 02/26/17 19:05 Troponin I 0.210 ng/mL (0.000-0.034) H* 02/26/17 19:05 NT-Pro-B Natriuret Pep 26544 pg/mL 02/26/17 19:05 Total Protein 5.3 g/dL (6.3-8.2) L 03/05/17 04:10 Albumin 2.6 g/dL (3.5-5.0) L 03/05/17 04:10 Urine Color Yellow 02/26/17 22:35 Urine Appearance Turbid (Clear) 02/26/17 22:35 Urine pH 5.5 (5.0-8.0) 02/26/17 22:35 Ur Specific [place] 1.015 (1.001-1.035) 02/26/17 22:35 Urine Protein 2+ (Negative) H 02/26/17 22:35 Urine Glucose (UA) Negative (Negative) 02/26/17 22:35 Urine Ketones Negative (Negative) 02/26/17 22:35 Urine Blood Moderate (Negative) H 02/26/17 22:35 Urine Nitrite Negative (Negative) 02/26/17 22:35 Urine Bilirubin Negative (Negative) 02/26/17 22:35 Urine Urobilinogen <2.0 mg/dL (<2.0) 02/26/17 22:35 Ur Leukocyte Esterase Large (Negative) H 02/26/17 22:35 Urine RBC 19 /hpf (0-5) H 02/26/17 22:35 Urine WBC >182 /hpf (0-5) H 02/26/17 22:35 Urine WBC Clumps Occasional /hpf (None) H 02/26/17 22:35 Ur Squamous Epith Cells 1 /hpf (0-4) 02/26/17 22:35 Urine Bacteria Many /hpf (None) H 02/26/17 22:35 Hyaline Casts 4 /lpf (0-2) H 02/26/17 22:35 Granular Casts 6 /lpf (0) 02/26/17 22:35 Gastric Occult Blood Positive (Negative) 02/26/17 21:59 Random Vancomycin 7.2 ug/mL 03/01/17 04:30 C. difficile (EIA) Intrp Negative (Negative) 03/04/17 15:00 Microbiology 02/28/17 10:50 Blood Blood Culture - Preliminary No Growth after 120 hours 02/27/17 23:22 Sputum Gram Stain - Final 02/27/17 23:22 Sputum Sputum Culture - Final Demi albicans Demi glabrata 02/27/17 12:01 Blood Blood Culture Gram Stain - Final 02/27/17 12:01 Blood Blood Culture - Final Escherichia coli 02/26/17 22:35 Urine,Voided Urine Culture - Final Escherichia coli 02/26/17 19:05 Blood Blood Culture Gram Stain - Final 02/26/17 19:05 Blood Blood Culture - Final Escherichia coli 02/26/17 19:05 Blood Blood Culture Gram Stain - Final 02/26/17 19:05 Blood Blood Culture - Final Escherichia coli 02/27/17 12:01 Blood Blood Culture - Final 02/26/17 19:05 Blood Blood Culture - Final 02/26/17 19:05 Blood Blood Culture - Final Assessment and Plan (1) Septic shock Narrative/Plan: 71-year-old male presents to hospital with increasing weakness. Shortly after admission became profoundly more ill. He became hypotensive and developed respiratory failure. He required intubation and mechanical ventilation. He remains ventilated at this time. Concerns underlying pneumonia as etiology of his current gram-negative sepsis. Follow cultures are in process and await the final identification. Fortunately there is been some improvement in that his leukocytosis is improved from 28 to 20.Also has had less vasopressor therapy needs. He however does have a acute renal failure his creatinine is at 3.58 and it was 1.04 during his last stay. Antibiotic therapy continues. With gram negatives only being isolated vancomycin is discontinued. Await final culture to determine final course of antibiotic therapy. Follow blood cultures requested given the multiple positive so far. Patient did have a VQ scan performed at admission that was a low probability of pulmonary embolism. However right lower lobe pneumonia is noted. The blood cultures reveal evidence of E. coli ESBL. Thus antibiotic therapy was altered to ertapenem. Follow up blood cultures remain negative so far. Leukocytosis persists related to his sepsis. Appears to be sepsis from urinary system. Extubated and improving Status: Acute (2) Pneumonia Status: Acute
[2017-03-05 23:46] LABS: Glucose,Whole Blood 137 mg/dL (75-99)
[2017-03-06] MEDS: DEXTROSE 5% IN WATER 1,000 ML IV SCH (03:07)
[2017-03-06 04:53] LABS: Glucose,Whole Blood 154 mg/dL (75-99)
[2017-03-06 04:55] LABS: Glucose,Whole Blood 153 mg/dL (75-99)
[2017-03-06] MEDS: INSULIN LISPRO (humaLOG) 300 UNIT/3 ML VIAL SQ SCH ×3 (05:03→17:10)
[2017-03-06] MEDS: methylPREDNISolone SOD SUCCI 40 MG/ML 1 ML VIAL IV SCH ×3 (05:04→17:10)
[2017-03-06 05:10] LABS: Anisocytosis Slight; Basophils % (A) 0 %; CH 24.5; CHCM 29.4; Eosinophils % (A) 0 %; HCT 37.7 % (39.0-53.0); HDW 3.04; HGB 11.5 gm/dL (13.0-17.5); Hypochromasia Marked; Luc # (Auto) 0.14; Luc % (Auto) 1; Lymphocytes # (A) 0.6 k/uL (1.0-4.8); Lymphocytes % (A) 5 %; MCH 25.6 pg (25.0-35.0); MCHC 30.6 g/dL (31.0-37.0); MCV 83.6 fL (80.0-100.0); Mean Platelet Volume 8.3; Monocytes # (A) 0.5 k/uL (0-1.0); Monocytes % (A) 4 %; Neutrophils # (A) 10.6 k/uL (1.3-7.7); Neutrophils % (A) 89 %; RBC 4.51 m/uL (4.30-5.90); RDW 16.4 % (11.5-15.5); WBC 11.9 k/uL (3.8-10.6); WBC (Perox) 12.56
[2017-03-06 05:20] LABS: INR 1.3 (<1.2); Prothrombin Time 12.4 sec (9.0-12.0)
[2017-03-06 05:21] LABS: ALT 45 U/L (21-72); AST 19 U/L (17-59); Alkaline Phosphatase 68 U/L (38-126); Anion Gap 7 mmol/L; Blood Urea Nitrogen 46 mg/dL (9-20); Calcium 8.6 mg/dL (8.4-10.2); Carbon Dioxide 31 mmol/L (22-30); Chloride 102 mmol/L (98-107); Glucose 147 mg/dL (74-99); Magnesium 2.1 mg/dL (1.6-2.3); Non-African American GFR(MDRD) >60 (>60 ml/min/1.73 sqM); Phosphorous 4.1 mg/dL (2.5-4.5); Potassium 4.7 mmol/L (3.5-5.1); Sodium 140 mmol/L (137-145); Total Bilirubin 0.5 mg/dL (0.2-1.3)
[2017-03-06] MEDS: PANTOPRAZOLE 40 MG TABLET PO SCH (07:35)
[2017-03-06] MEDS: IPRATROPIUM-ALBUTEROL 3 ML NEB INHALATION SCH ×4 (08:00→18:57)
[2017-03-06] MEDS: ERTAPENEM 1 GM in SODIUM CHLORIDE 0.9% 50 ML IVPB SCH (08:07)
[2017-03-06] MEDS: ENOXAPARIN 40 MG/0.4 ML SYRINGE SQ SCH (08:08)
[2017-03-06] MEDS: FUROSEMIDE 40 MG TAB PO SCH (08:08)
--- NOTE | 2017-03-06 09:03 | XR ---
EXAMINATION TYPE: XR chest 1V portable DATE OF EXAM: 03/06/2017 COMPARISON: NONE HISTORY: Pleural effusion. Shortness of breath. TECHNIQUE: Single frontal view of the chest is obtained. FINDINGS: There is redemonstration of cardiomegaly. Patient's chin obscures the right lung apex. Lef t-sided PICC is unchanged in position. Mild pulmonary vascular congestion is similar to the prior. Th ere is slight interval worsening of the pleural effusions, moderate on the right and small on the lef t with associated bibasilar atelectasis. IMPRESSION: 1. Slight interval increase in degree of pleural effusions, moderate on the right and small the left with associated bibasilar atelectasis. 2. Unchanged mild pulmonary vascular congestion.
[2017-03-06 11:33] LABS: Glucose,Whole Blood 148 mg/dL (75-99)
--- NOTE | 2017-03-06 11:38 | P.PN ---
Subjective Principal diagnosis: Acute septic shock secondary to E. coli urinary tract infection. A 71-year-old male patient who was admitted yesterday through the emergency department because of nausea, diminished oral intake, generalized weakness and lethargy. The patient apparently had dropped his oral intake and he was feeling progressively more weak. Denied having any chest pain. No cough or sputum production. No abdominal pain or abdominal distention. The patient was felt to be septic of a urinary source. His white cell count was elevated at 28.5 and the patient was also in acute kidney injury. Lactic acid was nonelevated. The patient's urinalysis was significant abnormal with significant number of white cell count and bacteria and the urine itself was quite dirty. The Carrasco catheter was inserted. The patient was started on a combination of vancomycin and Zosyn and he was admitted to the medical floor. This afternoon, the patient became hypotensive and diaphoretic. His blood pressure dropped down to the 50s systolic. At the same time the patient became tachycardic with a heart rate of 120. He was also becoming progressively more lethargic. He was on 6 L oxygen nasal cannula and his pulse ox was around 94%. The patient was brought into the intensive care unit. A triple lumen catheter was inserted. The patient was on IV fluids and pressors. For now the patient is already received 1-1/2 L of IV fluid in the form of normal saline. Levo fed was also initiated at 10 mics initially and currently it's at 30 mics. Urine output is diminished at this point. The patient was subsequently intubated as the patient did not he felt to be awake enough to protect his airway and he be has becoming progressively more hypoxic. I intubated this patient and put him on a mechanical ventilator on assist control mode at the rate of 24, tidal volume 500, PEEP of 5 and FiO2 100%. The patient will have a blood gases and chest x-ray done and these are still pending for now. The patient is known to me. Of taking care of him during a recent bout of sepsis and respiratory failure. The patient came into the ICU last month unresponsive and he was and CO2 narcosis. He was also in acute respiratory failure. He was a shock on pressors. Echocardiogram back then showed an ejection fraction of 40-45% with secondary pulmonary hypertension. CT angios the chest showed no evidence of any pulmonary embolism and there was a tonic right-sided pleural effusion. The patient was ultimately stabilized. He was assumed to have a right lower lobe pneumonia which was treated. All of the cultures came back negative. He was extubated. His acute kidney injury recovered. He was discharged to [facility] on a course of Levaquin On 02/28/2017 the patient is being seen in a follow-up. As mentioned earlier, the patient has gone into respiratory failure due to a complicated urinary tract infection septic shock. He was also intubated and placed on a mechanical ventilator. This morning, his FiO2 is down to 40% with a PEEP of 5 and he has a tidal volume of 500 with a rate of 24. His chest x-ray shows a chronic right- sided pleural effusion and the ET tube is in a good location and the patient has a left subclavian triple-lumen catheter in place. Also, the blood gas shows a pH of 7.37 with a pCO2 of 40 and pO2 of 115. Hemodynamically, the patient has been adequately resuscitated IV fluids. The patient is currently off pressors. White cell count is down to 20.5. The patient has gram-negative bacilli in his blood. ID is on the case. He is a currently on a combination of Zosyn and Levaquin. Vancomycin was discontinued. The patient is producing adequate amount of urine output. He is still in acute kidney injury yet his is nonoliguric. He is producing adequate amount of urine output. Blood sugars under good control. We'll start low-grade/rate tube feeds on him today. I discussed the case with his brother the bedside. On 03/01/2017 the patient is being seen in follow-up. He remains on assist control mode of ventilation with a rate of 24, tidal volume of 500 with an FiO2 of 40% and PEEP of 5. Peak airway pressures around 30 to anesthetic pressures around 20 and on today's evaluation is slightly bronchospastic and wheezy. He was given a sedation holiday. The weaning parameters was checked was poor. He was given a brief this point is breathing trial if her support of 5 and a PEEP of 5 which she was unable to tolerate as the patient became tachypneic and tachycardic. The trial was aborted. The patient is off sedation for now. He is calm and comfortable. Hemodynamically stable. He is off pressors. Function is improving and creatinine is down to 3. White cell count is also improving. Is down to 18. The blood culture was positive for E. coli which is an ESBL producing organism. The patient is on Zosyn and Levaquin and I think this may need to be switched to an antibiotic that covers ESBL, probably Merrem and for that reason this will be discussed with infectious disease. We'll start tube feeds. Possibly no extubation today based on the fifth spontaneous breathing trial. We'll may try the same prosthetic and around 2:00. I came to realize that was felt to put the patient on breathing treatments after being on the mechanical ventilator. He is also known to have COPD. Patient was reevaluated today on 03/02/2017, remains on mechanical ventilation, vent settings are tidal volume of 500, assist control rate of 24 FiO2 of 40% and PEEP of 5. ABG showed a pO2 of 95 pCO2 of 37 pH of 7.41. Basic metabolic profile was relatively normal, however BUN is 70 creatinine is 2.44. Renal profile seems to be steadily improving over the last few days. Peak airway pressure is about 32 plateau pressures about 20. Patient is presently off pressors, however according to the nurses when he was weaned off sedation, he became extremely agitated and restless tachycardic and tachypneic. Hence he had to be placed back on propofol. Patient is now on ertapenem for ESBL producing organism/E. coli. Patient is also on nutritional support via enteral feeding. Chest x-ray was reviewed and there seems to be evidence of right basilar atelectasis, and possibly small or moderate pleural effusion on the right side. May eventually consider ultrasound guided thoracentesis if his chest x-ray does not show much improvement. Patient was reevaluated today on 03/03/2017, remains on mechanical ventilation, ventilator settings as noted above, unchanged, ABG reviewed pO2 of 99 pCO2 of 37 pH of 7.45. CBC is relatively unremarkable. Chest x-ray continues to show a significant amount of consolidation of the right lower lobe and possibly a right parapneumonic effusion. Renal profile was reviewed, sodium remains a bit elevated although the patient is receiving free water via nasogastric tube. Creatinine is improving, 1.96 today. BUN is 68. Patient is arousable, follows simple instructions shortly after sedation was placed on hold. However I'm waiting until he is more awake, and I would likely recommend a short trial using pressure support and CPAP. Patient was reevaluated today on 03/04/2017, remains on mechanical ventilation, ventilator settings are unchanged, ABG was reviewed, chest x-ray continues to show right lower lobe consolidation and right parapneumonic effusion. Patient is hemodynamically stable, seems to be quite arousable, follows simple instructions, patient was given about 1 hour trial of pressure support and CPAP , and he was noted to tolerate the weaning mode quite well. Hence patient was extubated while I was at bedside to a nasal cannula 4 L/m. CBC was relatively normal. ABG showed a pO2 of 106 pCO2 of 40 pH of 7.47. Sodium 148 BUN is 63 creatinine is 1.50. His renal profile has been gradually improving since the day of admission. Chest x-ray was also reviewed there may be a slight improvement, the right pleural effusion seems to be borderline, I'm still debating whether to proceed with thoracentesis, but this would likely be done, if the pleural effusion gets any worse. Patient was reevaluated today on 03/05/2017, patient was extubated yesterday on , tolerated the extubation better than expected. Patient is now on nasal cannula at 4 L, relatively asymptomatic. Patient is a bit confused, however he knows that he is at [facility], and he knows the year. Patient denies any shortness of breath, no cough, no wheezing. Remains hemodynamically stable, not requiring any pressors. Urine output has been excellent and renal functioning has been steadily improving almost back to normal today. Chest x-ray continues to show some right lower lobe consolidation and right parapneumonic effusion presently too small to consider thoracentesis. CBC is relatively unremarkable. Electrolytes are relatively normal except for sodium of 147 BUN is 53 creatinine is 1.20. Patient will have a swallow evaluation, and if he does well will start oral feeding. Patient is not quite ready to be transferred out of the ICU, I plan to keep him for the next 24 hours, and if he continues to do well with planned transfer out of the ICU tomorrow. Reevaluated today on 03/06/2017, patient continues to tolerate extubation, doing much better, breathing a lot easier. Not requiring any pressors, he is hemodynamically stable, urine output seems to be adequate, chest x-ray continues to show some airspace disease in the right lower lobe and possibly a small right pleural effusion. However does not seem to be compromising his pulmonary status, hence I do not plan to do thoracentesis at this point. CBC was reviewed is relatively normal basic metabolic profile is normal renal profile showed a BUN of 46 creatinine 1.0. Objective - Vital Signs Vital signs: Vital Signs Temp 98.3 F 03/06/17 08:00 Pulse 80 03/06/17 11:00 Resp 22 03/06/17 11:00 BP 125/74 03/06/17 11:00 Pulse Ox 97 03/06/17 11:00 Intake & Output 03/05/17 03/06/17 03/06/17 18:59 06:59 18:59 Intake Total 1200 1880 300 Output Total 1601 1555 1076 Balance -401 325 -776 Weight 111.7 kg 109.4 kg 106.4 kg Intake: IV 600 800 300 Dextrose 5% in Water 1, 600 600 250 000 ml @ 50 mls/hr IV . Q20H [facility] Rx#:[id number] Ertapenem 1 gm In Sodium 50 Chloride 0.9% 50 ml @ 100 mls/hr IVPB Q24HR [facility] Rx #:[id number] Potassium Chloride 10 meq 200 In Water For Injection 1 100ml.bag @ 100 mls/hr IVPB Q1H [facility] Rx#: [id number] Oral 600 1080 Output: Urine 1600 1555 1075 Stool 1 1 Other: Voiding Method Indwelling Catheter Indwelling Catheter Indwelling Catheter # Voids 1 1 # Bowel Movements 1 1 ABP, PAP, CO, CI - Last Documented Arterial Blood Pressure 145/66 - Exam Physical Exam: Revealed a 71-year-old white male on nasal cannula, in no distress. HEENT:[Neck is supple.] [No neck masses.] [No thyromegaly.] [No JVD.] Chest: [Diminished breath sounds at the bases, minimal crackles at the right base. Cardiac Exam: [Normal S1 and S2, no S3 gallop, no murmur.] Abdomen: [Soft, nontender, no megaly, no rebound, no guarding, normal bowel sounds.] Extremities: [No clubbing, no edema, no cyanosis.] Neurological Exam: No focal neurologic deficit - Labs CBC & Chem 7: 03/06/17 04:50 03/06/17 04:50 Labs: Abnormal Lab Results - Last 24 Hours (Table) 03/05/17 03/05/17 03/05/17 Range/Units 12:04 17:55 23:44 WBC (3.8-10.6) k/uL Hgb (13.0-17.5) gm/dL Hct (39.0-53.0) % MCHC (31.0-37.0) g/dL RDW (11.5-15.5) % Neutrophils # (1.3-7.7) k/uL Lymphocytes # (1.0-4.8) k/uL PT (9.0-12.0) sec INR (<1.2) Carbon Dioxide (22-30) mmol/L BUN (9-20) mg/dL Glucose (74-99) mg/dL POC Glucose (mg/dL) 124 H 126 H 137 H (75-99) mg/dL Total Protein (6.3-8.2) g/dL Albumin (3.5-5.0) g/dL 03/06/17 03/06/17 03/06/17 Range/Units 04:50 04:50 04:50 WBC 11.9 H (3.8-10.6) k/uL Hgb 11.5 L (13.0-17.5) gm/dL Hct 37.7 L (39.0-53.0) % MCHC 30.6 L (31.0-37.0) g/dL RDW 16.4 H (11.5-15.5) % Neutrophils # 10.6 H (1.3-7.7) k/uL Lymphocytes # 0.6 L (1.0-4.8) k/uL PT 12.4 H (9.0-12.0) sec INR 1.3 H (<1.2) Carbon Dioxide 31 H (22-30) mmol/L BUN 46 H (9-20) mg/dL Glucose 147 H (74-99) mg/dL POC Glucose (mg/dL) (75-99) mg/dL Total Protein 5.0 L (6.3-8.2) g/dL Albumin 2.5 L (3.5-5.0) g/dL 03/06/17 03/06/17 03/06/17 Range/Units 04:51 04:54 11:31 WBC (3.8-10.6) k/uL Hgb (13.0-17.5) gm/dL Hct (39.0-53.0) % MCHC (31.0-37.0) g/dL RDW (11.5-15.5) % Neutrophils # (1.3-7.7) k/uL Lymphocytes # (1.0-4.8) k/uL PT (9.0-12.0) sec INR (<1.2) Carbon Dioxide (22-30) mmol/L BUN (9-20) mg/dL Glucose (74-99) mg/dL POC Glucose (mg/dL) 154 H 153 H 148 H (75-99) mg/dL Total Protein (6.3-8.2) g/dL Albumin (3.5-5.0) g/dL Microbiology - Last 24 Hours (Table) 02/28/17 10:50 Blood Culture - Preliminary Blood No Growth after 120 hours Assessment and Plan Plan: 1 septic shock secondary to a E. coli urinary tract infection. The patient has been adequately resuscitated with IV fluids. The patient's blood pressure is normalized and currently is off pressors. It is an ESBL producing organism. Patient is already on ertapenem. 2 shock secondary to above. This is septic shock. 3 E. coli /ESBL producing organism sepsis secondary to a urinary tract infection 4 acute respiratory failure secondary to above. Currently intubated on mechanical ventilator. The patient is broken spastic and wheezy on today's evaluation. He'll be started on DuoNeb nebulized treatments and steroids. 5 chronic right-sided pleural effusion small to moderate in size, patient will have ultrasound today, if the fluid is large enough and freely moving, may consider thoracentesis. 6 Obesity 7 acute kidney injury, improving 8 chronic psychiatric disorder and the patient has been maintained on multiple psychotropic medication including Abilify, trazodone, Cogentin and Lamictal on outpatient basis. He has underlying PTSD/bipolar disorder/depression 9 COPD 10 [facility] resident 11 hypertension 12 hyperlipidemia 13 chronic smoker 14 preserved LV function based on recent echocardiogram with an ejection fraction of 40% 15 status post extubation after a trial of pressure support and CPAP, this was done on . Recommendation: Patient was extubated on 03/04/2017, continues to tolerate the extubation well, continue incentive spirometry, advanced diet, transfer out of the ICU today. Time with Patient: Less than 30
--- NOTE | 2017-03-06 11:54 | P.PN ---
Subjective Patient is seen in follow-up for acute kidney injury. Renal function is improving with creatinine down to 1.0 today. Baseline creatinine is 1. He remains nonoliguric. He was extubated on March 04. Patient presented with hypotension along with generalized weakness. He was noted to be in septic shock with urine and blood culture positive for E. coli. His sputum culture is positive for Demi and yeast species. He is maintained on IV antibiotics. Sodium level has also normalized and is 140 today. Denies chest pain or shortness of breath. Vital signs are stable. General: Intubated. HEENT: Head exam is unremarkable. Neck is without jugular venous distension. LUNGS: Scattered rhonchi. Breath sounds decreased. HEART: Rate and Rhythm are regular. First and second heart sounds normal. No murmurs, rubs or gallops. ABDOMEN: Abdominal exam reveals normal bowel sounds. Non-tender and non- distended. EXTREMITITES: Trace edema. Objective - Vital Signs Vital signs: Vital Signs Temp 98.3 F 03/06/17 08:00 Pulse 89 03/06/17 11:46 Resp 22 03/06/17 11:00 BP 125/74 03/06/17 11:00 Pulse Ox 97 03/06/17 11:00 Intake & Output 03/05/17 03/06/17 03/06/17 18:59 06:59 18:59 Intake Total 1200 1880 300 Output Total 1601 1555 1076 Balance -401 325 -776 Weight 111.7 kg 109.4 kg 106.4 kg Intake: IV 600 800 300 Dextrose 5% in Water 1, 600 600 250 000 ml @ 50 mls/hr IV . Q20H [facility] Rx#:[id number] Ertapenem 1 gm In Sodium 50 Chloride 0.9% 50 ml @ 100 mls/hr IVPB Q24HR [facility] Rx #:[id number] Potassium Chloride 10 meq 200 In Water For Injection 1 100ml.bag @ 100 mls/hr IVPB Q1H [facility] Rx#: [id number] Oral 600 1080 Output: Urine 1600 1555 1075 Stool 1 1 Other: Voiding Method Indwelling Catheter Indwelling Catheter Indwelling Catheter # Voids 1 1 # Bowel Movements 1 1 ABP, PAP, CO, CI - Last Documented Arterial Blood Pressure 145/66 - Labs CBC & Chem 7: 03/06/17 04:50 03/06/17 04:50 Labs: Abnormal Lab Results - Last 24 Hours (Table) 03/05/17 03/05/17 03/05/17 Range/Units 12:04 17:55 23:44 WBC (3.8-10.6) k/uL Hgb (13.0-17.5) gm/dL Hct (39.0-53.0) % MCHC (31.0-37.0) g/dL RDW (11.5-15.5) % Neutrophils # (1.3-7.7) k/uL Lymphocytes # (1.0-4.8) k/uL PT (9.0-12.0) sec INR (<1.2) Carbon Dioxide (22-30) mmol/L BUN (9-20) mg/dL Glucose (74-99) mg/dL POC Glucose (mg/dL) 124 H 126 H 137 H (75-99) mg/dL Total Protein (6.3-8.2) g/dL Albumin (3.5-5.0) g/dL 03/06/17 03/06/17 03/06/17 Range/Units 04:50 04:50 04:50 WBC 11.9 H (3.8-10.6) k/uL Hgb 11.5 L (13.0-17.5) gm/dL Hct 37.7 L (39.0-53.0) % MCHC 30.6 L (31.0-37.0) g/dL RDW 16.4 H (11.5-15.5) % Neutrophils # 10.6 H (1.3-7.7) k/uL Lymphocytes # 0.6 L (1.0-4.8) k/uL PT 12.4 H (9.0-12.0) sec INR 1.3 H (<1.2) Carbon Dioxide 31 H (22-30) mmol/L BUN 46 H (9-20) mg/dL Glucose 147 H (74-99) mg/dL POC Glucose (mg/dL) (75-99) mg/dL Total Protein 5.0 L (6.3-8.2) g/dL Albumin 2.5 L (3.5-5.0) g/dL 03/06/17 03/06/17 03/06/17 Range/Units 04:51 04:54 11:31 WBC (3.8-10.6) k/uL Hgb (13.0-17.5) gm/dL Hct (39.0-53.0) % MCHC (31.0-37.0) g/dL RDW (11.5-15.5) % Neutrophils # (1.3-7.7) k/uL Lymphocytes # (1.0-4.8) k/uL PT (9.0-12.0) sec INR (<1.2) Carbon Dioxide (22-30) mmol/L BUN (9-20) mg/dL Glucose (74-99) mg/dL POC Glucose (mg/dL) 154 H 153 H 148 H (75-99) mg/dL Total Protein (6.3-8.2) g/dL Albumin (3.5-5.0) g/dL Microbiology - Last 24 Hours (Table) 02/28/17 10:50 Blood Culture - Preliminary Blood No Growth after 120 hours Assessment and Plan Plan: Assessment: #1. Nonoliguric acute kidney injury secondary to ischemic ATN secondary to septic shock. Creatinine peaked at 3.8 this admission and is down to 1.0 today. Baseline creatinine is near 1. #2. Septic shock secondary to E. coli bacteremia and UTI. Sputum culture positive for Demi. #3. Hypotension secondary to septic shock. Resolved. #4 Metabolic acidosis secondary to acute kidney injury and IV fluids. Resolved. #5. Hypernatremia secondary to lack of oral water intake. Improved. Plan: Discontinue D5W. Encouraged oral intake. Avoid nephrotoxic agents and hypotensive episodes. Continue to monitor renal function and urine output. Abx per ID reccs. Continue lasix 40 mg daily.
[2017-03-06 17:10] LABS: Glucose,Whole Blood 139 mg/dL (75-99)
--- NOTE | 2017-03-06 18:37 | P.PN ---
Subjective Progress Note dictated for Dr. Curry. 03/03/17 Interval history: This a 71-year-old gentleman admitted with severe sepsis secondary to ESBL bacteremia,UTI, acute on chronic metabolic encephalopathy, acute hypoxic respiratory failure and acute renal failure and multiple other medical issues. Off pressors. Maintained on mechanical ventilation of 40% FiO2/ +5 of PEEP. Suctioning tenacious white secretions from endotracheal tube .Yesterday tolerated initial CPAP for about 15 minutes, today tolerated longer for nearly an hour and then became tachycardic; returned to mechanical ventilation. Tolerating tube feeds at goal with minimal to no residuals. Sodium elevated at 149, water flushes increased. Renal function improving. Chest x-ray reporting persistent airspace consolidation right lower lobe with associated pleural effusions without failure. Ultrasound of chest performed with left-sided Marked for potential thoracentesis. 03/04/2017 extubated this morning, currently maintaining on 4 L nasal cannula .Chest x-ray reporting slightly improving pulmonary vascular congestion, moderate right small left pleural effusion, adjacent atelectasis and/or consolidation. Pulmonary discussing potential thoracentesis. Positive bowel movement. Telemetry sinus rhythm with occasional PVCs and PACs. IV fluids changed to D5W secondary to hypernatremia as patient no longer receiving free water flushes. Sodium currently 148. 03/05/2017. Confusion improving, maintained on 4 L nasal cannula. Chest x-ray reporting decreasing small right greater than left pleural effusions with adjacent atelectasis/consolidation, pulmonary vascular congestion. Diarrhea lessening, with a couple episodes last night and once this morning; tested negative for C. difficile colitis. Renal function continues to improve. Underwent swallow evaluation, results pending. Maintained on D5W IV fluid hydration, Sodium 147. 03/06/2017 breathing continues to improve, maintaining O2 sats in the 90s on 4 L nasal cannula. Chest x-ray reporting persistent right lower lobe airspace disease, small right pleural effusion. Maintained on D5W with sodium now normalized. Review of systems: HEENT: Denies headache or focal deficits. Denies any dizziness or lightheadedness. Respiratory: Denies any increased shortness of breath, no cough Cardiac: Denies any chest pain, palpitations. GI: Denies any nausea, vomiting, one stool this morning, more formed. Denies any abdominal tenderness. : Denies any dysuria. Psychiatry: Denies any anxiety or depression. Active Medications Generic Name Dose Route Start Last Admin Trade Name Freq PRN Reason Stop Dose Admin Albuterol/Ipratropium 3 ml 03/01/17 12:00 03/06/17 15:33 Duoneb 0.5 Mg-3 Mg/3 Ml Soln INHALATION 3 ml RT-QID JYOTSNA Administration Atorvastatin Calcium 20 mg 02/27/17 21:00 03/05/17 20:11 Lipitor PO 20 mg HS JYOTSNA Administration Benztropine Mesylate 2 mg 02/27/17 21:00 03/05/17 20:11 Cogentin PO 2 mg HS JYOTSNA Administration Enoxaparin Sodium 40 mg 02/27/17 18:00 03/06/17 08:08 Lovenox SQ 40 mg DAILY JYOTSNA Administration Furosemide 40 mg 02/27/17 09:00 03/06/17 08:08 Lasix PO 40 mg DAILY JYOTSNA Administration Haloperidol Lactate 3 mg 03/04/17 12:05 03/06/17 08:07 Haldol IM 3 mg Q6HR PRN Administration Agitation or Acute Psychosis Norepinephrine Bitartrate 16 mg in 250 mls @ 0 mls/hr 02/27/17 15:15 08:30 Levophed-0.9% Nacl 16 Mg/250ml Pmx IV 0 mcg/min .Q0M JYOTSNA 0 mls/hr Protocol Titration Titrate Ertapenem 1 gm/ Sodium 50 mls @ 100 mls/hr 03/01/17 16:15 03/06/17 08:07 Chloride IVPB 100 mls/hr Q24HR JYOTSAN Administration Insulin Human Lispro 0 unit 02/27/17 18:00 03/06/17 17:10 Humalog SQ 1 unit Q6H JYOTSNA Administration Protocol Lorazepam 0.5 mg 03/04/17 12:04 03/05/17 15:40 Ativan IV 0.5 mg Q6HR PRN Administration Agitation Methylprednisolone Sodium Succinate 40 mg 03/01/17 12:00 03/06/17 17:10 Solu-Medrol IV 40 mg Q6HR JYOTSNA Administration Miscellaneous Information 1 each 03/03/17 06:01 Potassium Per Protocol MISCELLANE DAILY PRN Per Protocol Protocol Naloxone HCl 0.2 mg 02/27/17 14:28 Narcan IV Q2M PRN Opioid Reversal Pantoprazole Sodium 40 mg 03/06/17 07:30 03/06/17 07:35 Protonix PO 40 mg [id number] JYOTSNA Administration Trazodone HCl 100 mg 02/27/17 21:00 03/05/17 20:11 Desyrel PO 100 mg HS JYOTSNA Administration Objective - Vital Signs Vital signs: Vital Signs Temp 98.3 F 03/06/17 12:00 Pulse 101 H 03/06/17 15:00 Resp 38 H 03/06/17 15:00 BP 137/68 03/06/17 15:00 Pulse Ox 93 L 03/06/17 15:00 Intake & Output 03/05/17 03/06/17 03/06/17 18:59 06:59 18:59 Intake Total 1200 1880 1000 Output Total 1601 1555 2042 Balance -401 325 -1042 Weight 111.7 kg 109.4 kg 106.4 kg Intake: IV 600 800 500 Dextrose 5% in Water 1, 600 600 450 000 ml @ 50 mls/hr IV . Q20H [facility] Rx#:[id number] Ertapenem 1 gm In Sodium 50 Chloride 0.9% 50 ml @ 100 mls/hr IVPB Q24HR JYOTSNA Rx #:[id number] Potassium Chloride 10 meq 200 In Water For Injection 1 100ml.bag @ 100 mls/hr IVPB Q1H [facility] Rx#: [id number] Oral 600 1080 460 Tube Feeding 40 Output: Urine 1600 1555 2040 Stool 1 2 Other: Voiding Method Indwelling Catheter Indwelling Catheter Indwelling Catheter # Voids 1 1 # Bowel Movements 1 1 ABP, PAP, CO, CI - Last Documented Arterial Blood Pressure 145/66 - Exam PHYSICAL EXAM: VITAL SIGNS: As above GENERAL: [Sitting up in bed, no acute distress HEENT: [Pupils equal conjunctiva normal. Oral mucosa moist] NECK: [Supple, no JVD] RESPIRATORY EFFORT:[ Normal] LUNGS: [Diminished, fine right basilar crackles, no rhonchi, no wheezing] CARDIOVASCULAR[ regular S1 and S2, no murmurs rubs or gallop, trace edema] GI: [Abdomen soft, nontender, positive bowel sounds.] PSYCH/NEURO: Alert and oriented 2-3, moves all 4 extremities, strength and sensation grossly intact. No focal deficits. Microbiology 02/28/17 10:50 Blood Blood Culture - Preliminary No Growth after 120 hours 02/27/17 23:22 Sputum Gram Stain - Final 02/27/17 23:22 Sputum Sputum Culture - Final Demi albicans Demi glabrata 02/27/17 12:01 Blood Blood Culture Gram Stain - Final 02/27/17 12:01 Blood Blood Culture - Final Escherichia coli 02/26/17 22:35 Urine,Voided Urine Culture - Final Escherichia coli 02/26/17 19:05 Blood Blood Culture Gram Stain - Final 02/26/17 19:05 Blood Blood Culture - Final Escherichia coli 02/26/17 19:05 Blood Blood Culture Gram Stain - Final 02/26/17 19:05 Blood Blood Culture - Final Escherichia coli 02/27/17 12:01 Blood Blood Culture - Final 02/26/17 19:05 Blood Blood Culture - Final 02/26/17 19:05 Blood Blood Culture - Final - Labs CBC & Chem 7: 03/06/17 04:50 03/06/17 04:50 Labs: Abnormal Lab Results - Last 24 Hours (Table) 03/05/17 03/05/17 03/06/17 Range/Units 17:55 23:44 04:50 WBC 11.9 H (3.8-10.6) k/uL Hgb 11.5 L (13.0-17.5) gm/dL Hct 37.7 L (39.0-53.0) % MCHC 30.6 L (31.0-37.0) g/dL RDW 16.4 H (11.5-15.5) % Neutrophils # 10.6 H (1.3-7.7) k/uL Lymphocytes # 0.6 L (1.0-4.8) k/uL PT (9.0-12.0) sec INR (<1.2) Carbon Dioxide (22-30) mmol/L BUN (9-20) mg/dL Glucose (74-99) mg/dL POC Glucose (mg/dL) 126 H 137 H (75-99) mg/dL Total Protein (6.3-8.2) g/dL Albumin (3.5-5.0) g/dL 03/06/17 03/06/17 03/06/17 Range/Units 04:50 04:50 04:51 WBC (3.8-10.6) k/uL Hgb (13.0-17.5) gm/dL Hct (39.0-53.0) % MCHC (31.0-37.0) g/dL RDW (11.5-15.5) % Neutrophils # (1.3-7.7) k/uL Lymphocytes # (1.0-4.8) k/uL PT 12.4 H (9.0-12.0) sec INR 1.3 H (<1.2) Carbon Dioxide 31 H (22-30) mmol/L BUN 46 H (9-20) mg/dL Glucose 147 H (74-99) mg/dL POC Glucose (mg/dL) 154 H (75-99) mg/dL Total Protein 5.0 L (6.3-8.2) g/dL Albumin 2.5 L (3.5-5.0) g/dL 03/06/17 03/06/17 Range/Units 04:54 11:31 WBC (3.8-10.6) k/uL Hgb (13.0-17.5) gm/dL Hct (39.0-53.0) % MCHC (31.0-37.0) g/dL RDW (11.5-15.5) % Neutrophils # (1.3-7.7) k/uL Lymphocytes # (1.0-4.8) k/uL PT (9.0-12.0) sec INR (<1.2) Carbon Dioxide (22-30) mmol/L BUN (9-20) mg/dL Glucose (74-99) mg/dL POC Glucose (mg/dL) 153 H 148 H (75-99) mg/dL Total Protein (6.3-8.2) g/dL Albumin (3.5-5.0) g/dL Microbiology - Last 24 Hours (Table) 02/28/17 10:50 Blood Culture - Final Blood No Growth after 144 hours Assessment and Plan Plan: 1. Severe sepsis , septic shock secondary to bacteremia and UTI with ESBL present on admission. 2. [ Change in mental status, acute on chronic metabolic encephalopathy]. 3. [ Acute hypoxic respiratory failure secondary to sepsis, possible pneumonia in a patient with history of recent treated pneumonia]. 4. [Acute renal failure, possibly due to prerenal factors with possible chronic kidney disease, stage III 5. [ Hypernatremia, improved Plan: Continue on current medication regime, ertapenem, nebulized bronchodilators, steroids,lasix, monitoring and symptomatic treatment. Mechanical soft diet with one-to-one supervision. Antibiotics as per ID. 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 Further recommendations to follow. The impression and plan of care has been dictated as directed. : I performed a H&P examination of this patient and discussed the same with the dictator. I agree with the dictator's note. Any additional findings/opinions/ etc. will be noted.
[2017-03-06] MEDS: BENZTROPINE MESYLATE 1 MG TAB PO SCH (20:02)
[2017-03-06] MEDS: ATORVASTATIN 20 MG TAB PO SCH (20:02)
[2017-03-06] MEDS: traZODone HCL 100 MG TAB PO SCH (20:02)
[2017-03-07] MEDS: methylPREDNISolone SOD SUCCI 40 MG/ML 1 ML VIAL IV SCH ×4 (00:02→17:54)
[2017-03-07] MEDS: LORazepam 2 MG/ML SYRINGE IV PRN ×2 (03:07→16:28)
[2017-03-07 07:30] LABS: Glucose,Whole Blood 118 mg/dL (75-99)
[2017-03-07] MEDS: IPRATROPIUM-ALBUTEROL 3 ML NEB INHALATION SCH ×4 (08:32→19:49)
[2017-03-07 08:41] LABS: INR 1.2 (<1.2); Prothrombin Time 12.1 sec (9.0-12.0)
[2017-03-07 08:43] LABS: Anisocytosis Slight; Basophils % (A) 0 %; CH 24.7; CHCM 30.1; Eosinophils % (A) 0 %; HCT 40.5 % (39.0-53.0); HDW 3.08; HGB 12.6 gm/dL (13.0-17.5); Hypochromasia Marked; Luc % (Auto) 1; Lymphocytes # (A) 1.1 k/uL (1.0-4.8); Lymphocytes % (A) 5 %; MCH 25.5 pg (25.0-35.0); MCV 82.3 fL (80.0-100.0); Mean Platelet Volume 8.2; Monocytes # (A) 0.7 k/uL (0-1.0); Monocytes % (A) 3 %; Neutrophils # (A) 21.2 k/uL (1.3-7.7); Neutrophils % (A) 91 %; RBC 4.92 m/uL (4.30-5.90); RDW 16.3 % (11.5-15.5); WBC 23.2 k/uL (3.8-10.6); WBC (Perox) 23.11
[2017-03-07 08:50] LABS: ALT 49 U/L (21-72); AST 26 U/L (17-59); Alkaline Phosphatase 79 U/L (38-126); Anion Gap 7 mmol/L; Blood Urea Nitrogen 38 mg/dL (9-20); Calcium 8.9 mg/dL (8.4-10.2); Carbon Dioxide 33 mmol/L (22-30); Chloride 100 mmol/L (98-107); Glucose 102 mg/dL (74-99); Magnesium 1.9 mg/dL (1.6-2.3); Non-African American GFR(MDRD) >60 (>60 ml/min/1.73 sqM); Potassium 4.2 mmol/L (3.5-5.1); Sodium 140 mmol/L (137-145); Total Bilirubin 0.7 mg/dL (0.2-1.3); Total Protein 5.3 g/dL (6.3-8.2)
[2017-03-07] MEDS: INSULIN LISPRO (humaLOG) 300 UNIT/3 ML VIAL SQ SCH ×4 (09:20→21:50)
[2017-03-07] MEDS: ENOXAPARIN 40 MG/0.4 ML SYRINGE SQ SCH (09:22)
[2017-03-07] MEDS: ERTAPENEM 1 GM in SODIUM CHLORIDE 0.9% 50 ML IVPB SCH (09:22)
[2017-03-07] MEDS: PANTOPRAZOLE 40 MG TABLET PO SCH (09:22)
[2017-03-07] MEDS: FUROSEMIDE 40 MG TAB PO SCH (09:22)
[2017-03-07] MEDS: NYSTATIN 100,000 UNIT/GM POWD 15 GM TOPICAL SCH ×2 (09:23→21:54)
--- NOTE | 2017-03-07 10:48 | XR ---
EXAMINATION TYPE: XR chest 1V portable DATE OF EXAM: 03/07/2017 COMPARISON: Yesterday HISTORY: Pleural effusion TECHNIQUE: Single frontal view of the chest is obtained. FINDINGS: Portable single view of the chest shows an enlarged heart. There is mild pulmonary vascula r congestion. There is left central venous catheter with the tip in the superior vena cava. There is some patchy infiltrate and pleural thickening at the right lung base. IMPRESSION: Right lower lobe pneumonia and pleural thickening and fluid that is slightly improved co mpared to yesterday. Cardiomegaly and mild heart failure is unchanged.
[2017-03-07 12:32] LABS: Glucose,Whole Blood 107 mg/dL (75-99)
--- NOTE | 2017-03-07 12:57 | P.PN ---
Subjective Principal diagnosis: Acute septic shock secondary to E. coli urinary tract infection. A 71-year-old male patient who was admitted yesterday through the emergency department because of nausea, diminished oral intake, generalized weakness and lethargy. The patient apparently had dropped his oral intake and he was feeling progressively more weak. Denied having any chest pain. No cough or sputum production. No abdominal pain or abdominal distention. The patient was felt to be septic of a urinary source. His white cell count was elevated at 28.5 and the patient was also in acute kidney injury. Lactic acid was nonelevated. The patient's urinalysis was significant abnormal with significant number of white cell count and bacteria and the urine itself was quite dirty. The Carrasco catheter was inserted. The patient was started on a combination of vancomycin and Zosyn and he was admitted to the medical floor. This afternoon, the patient became hypotensive and diaphoretic. His blood pressure dropped down to the 50s systolic. At the same time the patient became tachycardic with a heart rate of 120. He was also becoming progressively more lethargic. He was on 6 L oxygen nasal cannula and his pulse ox was around 94%. The patient was brought into the intensive care unit. A triple lumen catheter was inserted. The patient was on IV fluids and pressors. For now the patient is already received 1-1/2 L of IV fluid in the form of normal saline. Levo fed was also initiated at 10 mics initially and currently it's at 30 mics. Urine output is diminished at this point. The patient was subsequently intubated as the patient did not he felt to be awake enough to protect his airway and he be has becoming progressively more hypoxic. I intubated this patient and put him on a mechanical ventilator on assist control mode at the rate of 24, tidal volume 500, PEEP of 5 and FiO2 100%. The patient will have a blood gases and chest x-ray done and these are still pending for now. The patient is known to me. Of taking care of him during a recent bout of sepsis and respiratory failure. The patient came into the ICU last month unresponsive and he was and CO2 narcosis. He was also in acute respiratory failure. He was a shock on pressors. Echocardiogram back then showed an ejection fraction of 40-45% with secondary pulmonary hypertension. CT angios the chest showed no evidence of any pulmonary embolism and there was a tonic right-sided pleural effusion. The patient was ultimately stabilized. He was assumed to have a right lower lobe pneumonia which was treated. All of the cultures came back negative. He was extubated. His acute kidney injury recovered. He was discharged to [facility] on a course of Levaquin On 02/28/2017 the patient is being seen in a follow-up. As mentioned earlier, the patient has gone into respiratory failure due to a complicated urinary tract infection septic shock. He was also intubated and placed on a mechanical ventilator. This morning, his FiO2 is down to 40% with a PEEP of 5 and he has a tidal volume of 500 with a rate of 24. His chest x-ray shows a chronic right- sided pleural effusion and the ET tube is in a good location and the patient has a left subclavian triple-lumen catheter in place. Also, the blood gas shows a pH of 7.37 with a pCO2 of 40 and pO2 of 115. Hemodynamically, the patient has been adequately resuscitated IV fluids. The patient is currently off pressors. White cell count is down to 20.5. The patient has gram-negative bacilli in his blood. ID is on the case. He is a currently on a combination of Zosyn and Levaquin. Vancomycin was discontinued. The patient is producing adequate amount of urine output. He is still in acute kidney injury yet his is nonoliguric. He is producing adequate amount of urine output. Blood sugars under good control. We'll start low-grade/rate tube feeds on him today. I discussed the case with his brother the bedside. On 03/01/2017 the patient is being seen in follow-up. He remains on assist control mode of ventilation with a rate of 24, tidal volume of 500 with an FiO2 of 40% and PEEP of 5. Peak airway pressures around 30 to anesthetic pressures around 20 and on today's evaluation is slightly bronchospastic and wheezy. He was given a sedation holiday. The weaning parameters was checked was poor. He was given a brief this point is breathing trial if her support of 5 and a PEEP of 5 which she was unable to tolerate as the patient became tachypneic and tachycardic. The trial was aborted. The patient is off sedation for now. He is calm and comfortable. Hemodynamically stable. He is off pressors. Function is improving and creatinine is down to 3. White cell count is also improving. Is down to 18. The blood culture was positive for E. coli which is an ESBL producing organism. The patient is on Zosyn and Levaquin and I think this may need to be switched to an antibiotic that covers ESBL, probably Merrem and for that reason this will be discussed with infectious disease. We'll start tube feeds. Possibly no extubation today based on the fifth spontaneous breathing trial. We'll may try the same prosthetic and around 2:00. I came to realize that was felt to put the patient on breathing treatments after being on the mechanical ventilator. He is also known to have COPD. Patient was reevaluated today on 03/02/2017, remains on mechanical ventilation, vent settings are tidal volume of 500, assist control rate of 24 FiO2 of 40% and PEEP of 5. ABG showed a pO2 of 95 pCO2 of 37 pH of 7.41. Basic metabolic profile was relatively normal, however BUN is 70 creatinine is 2.44. Renal profile seems to be steadily improving over the last few days. Peak airway pressure is about 32 plateau pressures about 20. Patient is presently off pressors, however according to the nurses when he was weaned off sedation, he became extremely agitated and restless tachycardic and tachypneic. Hence he had to be placed back on propofol. Patient is now on ertapenem for ESBL producing organism/E. coli. Patient is also on nutritional support via enteral feeding. Chest x-ray was reviewed and there seems to be evidence of right basilar atelectasis, and possibly small or moderate pleural effusion on the right side. May eventually consider ultrasound guided thoracentesis if his chest x-ray does not show much improvement. Patient was reevaluated today on 03/03/2017, remains on mechanical ventilation, ventilator settings as noted above, unchanged, ABG reviewed pO2 of 99 pCO2 of 37 pH of 7.45. CBC is relatively unremarkable. Chest x-ray continues to show a significant amount of consolidation of the right lower lobe and possibly a right parapneumonic effusion. Renal profile was reviewed, sodium remains a bit elevated although the patient is receiving free water via nasogastric tube. Creatinine is improving, 1.96 today. BUN is 68. Patient is arousable, follows simple instructions shortly after sedation was placed on hold. However I'm waiting until he is more awake, and I would likely recommend a short trial using pressure support and CPAP. Patient was reevaluated today on 03/04/2017, remains on mechanical ventilation, ventilator settings are unchanged, ABG was reviewed, chest x-ray continues to show right lower lobe consolidation and right parapneumonic effusion. Patient is hemodynamically stable, seems to be quite arousable, follows simple instructions, patient was given about 1 hour trial of pressure support and CPAP , and he was noted to tolerate the weaning mode quite well. Hence patient was extubated while I was at bedside to a nasal cannula 4 L/m. CBC was relatively normal. ABG showed a pO2 of 106 pCO2 of 40 pH of 7.47. Sodium 148 BUN is 63 creatinine is 1.50. His renal profile has been gradually improving since the day of admission. Chest x-ray was also reviewed there may be a slight improvement, the right pleural effusion seems to be borderline, I'm still debating whether to proceed with thoracentesis, but this would likely be done, if the pleural effusion gets any worse. Patient was reevaluated today on 03/05/2017, patient was extubated yesterday on , tolerated the extubation better than expected. Patient is now on nasal cannula at 4 L, relatively asymptomatic. Patient is a bit confused, however he knows that he is at [facility], and he knows the year. Patient denies any shortness of breath, no cough, no wheezing. Remains hemodynamically stable, not requiring any pressors. Urine output has been excellent and renal functioning has been steadily improving almost back to normal today. Chest x-ray continues to show some right lower lobe consolidation and right parapneumonic effusion presently too small to consider thoracentesis. CBC is relatively unremarkable. Electrolytes are relatively normal except for sodium of 147 BUN is 53 creatinine is 1.20. Patient will have a swallow evaluation, and if he does well will start oral feeding. Patient is not quite ready to be transferred out of the ICU, I plan to keep him for the next 24 hours, and if he continues to do well with planned transfer out of the ICU tomorrow. Reevaluated today on 03/06/2017, patient continues to tolerate extubation, doing much better, breathing a lot easier. Not requiring any pressors, he is hemodynamically stable, urine output seems to be adequate, chest x-ray continues to show some airspace disease in the right lower lobe and possibly a small right pleural effusion. However does not seem to be compromising his pulmonary status, hence I do not plan to do thoracentesis at this point. CBC was reviewed is relatively normal basic metabolic profile is normal renal profile showed a BUN of 46 creatinine 1.0. Reevaluated today on 03/07/2017, patient is doing extremely well, in no form of respiratory distress, has some underlying confusion, but overall the patient is doing great. Actually he has no active pulmonary symptoms whatsoever. WBC count is noted to be elevated at 23.2, hence I will recommend that we remove his central line, continue antibiotics, and keep a close watch on his labs over the weekend. Basic metabolic profile is normal, normal profile is back to normal almost. Chest x-ray continues to show airspace disease in the right lower lobe. And small pleural effusion. Overall the chest x-ray is improving. Objective - Vital Signs Vital signs: Vital Signs Temp 97.8 F 03/07/17 07:00 Pulse 86 03/07/17 07:00 Resp 16 03/07/17 07:00 BP 153/72 03/07/17 07:00 Pulse Ox 96 03/07/17 07:00 Intake & Output 03/06/17 03/07/17 03/07/17 18:59 06:59 18:59 Intake Total 1220 Output Total 2434 260 Balance -1214 -260 Weight 106.4 kg 105.5 kg Intake: IV 600 Dextrose 5% in Water 1, 550 000 ml @ 50 mls/hr IV . Q20H [facility] Rx#:[id number] Ertapenem 1 gm In Sodium 50 Chloride 0.9% 50 ml @ 100 mls/hr IVPB Q24HR [facility] Rx #:[id number] Oral 580 Tube Feeding 40 Output: Urine 2430 255 Stool 4 5 Other: Voiding Method Indwelling Catheter Incontinent Incontinent # Voids 1 1 # Bowel Movements 1 1 ABP, PAP, CO, CI - Last Documented Arterial Blood Pressure 145/66 - Exam Physical Exam: Revealed a 71-year-old white male on nasal cannula, in no distress. HEENT:[Neck is supple.] [No neck masses.] [No thyromegaly.] [No JVD.] Chest: [Diminished breath sounds at the bases, minimal crackles at the right base. Cardiac Exam: [Normal S1 and S2, no S3 gallop, no murmur.] Abdomen: [Soft, nontender, no megaly, no rebound, no guarding, normal bowel sounds.] Extremities: [No clubbing, no edema, no cyanosis.] Neurological Exam: No focal neurologic deficit - Labs CBC & Chem 7: 03/07/17 08:04 03/07/17 08:04 Labs: Abnormal Lab Results - Last 24 Hours (Table) 03/06/17 03/07/17 03/07/17 Range/Units 17:08 07:22 08:04 WBC 23.2 H (3.8-10.6) k/uL Hgb 12.6 L (13.0-17.5) gm/dL RDW 16.3 H (11.5-15.5) % Neutrophils # 21.2 H (1.3-7.7) k/uL PT (9.0-12.0) sec INR (<1.2) Carbon Dioxide (22-30) mmol/L BUN (9-20) mg/dL Glucose (74-99) mg/dL POC Glucose (mg/dL) 139 H 118 H (75-99) mg/dL Total Protein (6.3-8.2) g/dL Albumin (3.5-5.0) g/dL 03/07/17 03/07/17 03/07/17 Range/Units 08:04 08:04 12:26 WBC (3.8-10.6) k/uL Hgb (13.0-17.5) gm/dL RDW (11.5-15.5) % Neutrophils # (1.3-7.7) k/uL PT 12.1 H (9.0-12.0) sec INR 1.2 H (<1.2) Carbon Dioxide 33 H (22-30) mmol/L BUN 38 H (9-20) mg/dL Glucose 102 H (74-99) mg/dL POC Glucose (mg/dL) 107 H (75-99) mg/dL Total Protein 5.3 L (6.3-8.2) g/dL Albumin 2.8 L (3.5-5.0) g/dL Microbiology - Last 24 Hours (Table) 02/28/17 10:50 Blood Culture - Final Blood No Growth after 144 hours Assessment and Plan Plan: 1 septic shock secondary to a E. coli urinary tract infection. The patient has been adequately resuscitated with IV fluids. The patient's blood pressure is normalized and currently is off pressors. It is an ESBL producing organism. Patient is already on ertapenem. 2 shock secondary to above. This is septic shock. 3 E. coli /ESBL producing organism sepsis secondary to a urinary tract infection 4 acute respiratory failure secondary to above. Currently intubated on mechanical ventilator. The patient is broken spastic and wheezy on today's evaluation. He'll be started on DuoNeb nebulized treatments and steroids. 5 chronic right-sided pleural effusion small to moderate in size, patient will have ultrasound today, if the fluid is large enough and freely moving, may consider thoracentesis. 6 Obesity 7 acute kidney injury, improving 8 chronic psychiatric disorder and the patient has been maintained on multiple psychotropic medication including Abilify, trazodone, Cogentin and Lamictal on outpatient basis. He has underlying PTSD/bipolar disorder/depression 9 COPD 10 retirement resident 11 hypertension 12 hyperlipidemia 13 chronic smoker 14 preserved LV function based on recent echocardiogram with an ejection fraction of 40% 15 status post extubation after a trial of pressure support and CPAP, this was done on . Recommendation: Patient was extubated on 03/04/2017, continues to tolerate the extubation well, continue incentive spirometry, recommend physical therapy, and possible discharge planning to a rehab facility on Thursday. Will need the central line to be removed, and a peripheral IV access to be established. This will be done today. Patient may need IV antibiotics on outpatient basis, and may eventually require a PICC line. That could be decided upon by infectious disease on the case. Time with Patient: Less than 30
--- NOTE | 2017-03-07 15:46 | P.PN ---
Subjective Progress Note dictated for Dr. Curry. 03/03/17 Interval history: This a 71-year-old gentleman admitted with severe sepsis secondary to ESBL bacteremia,UTI, acute on chronic metabolic encephalopathy, acute hypoxic respiratory failure and acute renal failure and multiple other medical issues. Off pressors. Maintained on mechanical ventilation of 40% FiO2/ +5 of PEEP. Suctioning tenacious white secretions from endotracheal tube .Yesterday tolerated initial CPAP for about 15 minutes, today tolerated longer for nearly an hour and then became tachycardic; returned to mechanical ventilation. Tolerating tube feeds at goal with minimal to no residuals. Sodium elevated at 149, water flushes increased. Renal function improving. Chest x-ray reporting persistent airspace consolidation right lower lobe with associated pleural effusions without failure. Ultrasound of chest performed with left-sided Marked for potential thoracentesis. 03/04/2017 extubated this morning, currently maintaining on 4 L nasal cannula .Chest x-ray reporting slightly improving pulmonary vascular congestion, moderate right small left pleural effusion, adjacent atelectasis and/or consolidation. Pulmonary discussing potential thoracentesis. Positive bowel movement. Telemetry sinus rhythm with occasional PVCs and PACs. IV fluids changed to D5W secondary to hypernatremia as patient no longer receiving free water flushes. Sodium currently 148. 03/05/2017. Confusion improving, maintained on 4 L nasal cannula. Chest x-ray reporting decreasing small right greater than left pleural effusions with adjacent atelectasis/consolidation, pulmonary vascular congestion. Diarrhea lessening, with a couple episodes last night and once this morning; tested negative for C. difficile colitis. Renal function continues to improve. Underwent swallow evaluation, results pending. Maintained on D5W IV fluid hydration, Sodium 147. 03/06/2017 breathing continues to improve, maintaining O2 sats in the 90s on 4 L nasal cannula. Chest x-ray reporting persistent right lower lobe airspace disease, small right pleural effusion. Maintained on D5W with sodium now normalized. 03/07/2017 transferred out of ICU, currently on MedSurg unit. Maintained on IV antibiotics. Elevated WBC, 23.2,afebrile. Central line being discontinued with tip cultured. Confused. Extremely weak. Review of systems: Confused, unable to obtain at this time, states he's waiting for Dr. Mayorga, who says he can go fishing. Active Medications Albuterol/Ipratropium (Duoneb 0.5 Mg-3 Mg/3 Ml Soln) 3 ml INHALATION RT-QID [facility] Last Admin: 03/07/17 12:05 Dose: 3 ml Atorvastatin Calcium (Lipitor) 20 mg PO HS [facility] Last Admin: 03/06/17 20:02 Dose: 20 mg Benztropine Mesylate (Cogentin) 2 mg PO HS [facility] Last Admin: 03/06/17 20:02 Dose: 2 mg Enoxaparin Sodium (Lovenox) 40 mg SQ DAILY [facility] Last Admin: 03/07/17 09:22 Dose: 40 mg Furosemide (Lasix) 40 mg PO DAILY [facility] Last Admin: 03/07/17 09:22 Dose: 40 mg Haloperidol Lactate (Haldol) 3 mg IM Q6HR PRN PRN Reason: Agitation or Acute Psychosis Last Admin: 03/06/17 08:07 Dose: 3 mg Ertapenem 1 gm/ Sodium (Chloride) 50 mls @ 100 mls/hr IVPB Q24HR [facility] Last Admin: 03/07/17 09:22 Dose: 100 mls/hr Insulin Human Lispro (Humalog) 0 unit SQ [facility] PRN Reason: Protocol Last Admin: 03/07/17 12:49 Dose: Not Given Lorazepam (Ativan) 0.5 mg IV Q6HR PRN PRN Reason: Agitation Last Admin: 03/07/17 03:07 Dose: 0.5 mg Methylprednisolone Sodium Succinate (Solu-Medrol) 40 mg IV Q6HR [facility] Last Admin: 03/07/17 14:38 Dose: 40 mg Miscellaneous Information (Potassium Per Protocol) 1 each MISCELLANE DAILY PRN ; Protocol PRN Reason: Per Protocol Naloxone HCl (Narcan) 0.2 mg IV Q2M PRN PRN Reason: Opioid Reversal Nystatin (Mycostatin Powder) 1 applic TOPICAL BID [facility] Last Admin: 03/07/17 09:23 Dose: 1 applic Pantoprazole Sodium (Protonix) 40 mg PO [id number] [facility] Last Admin: 03/07/17 09:22 Dose: 40 mg Trazodone HCl (Desyrel) 100 mg PO HS [facility] Last Admin: 03/06/17 20:02 Dose: 100 mg Objective - Vital Signs Vital signs: Vital Signs Temp 98.0 F 03/07/17 14:34 Pulse 97 03/07/17 14:34 Resp 16 03/07/17 14:34 BP 97/71 03/07/17 14:34 Pulse Ox 94 L 03/07/17 14:34 Intake & Output 03/06/17 03/07/17 03/07/17 18:59 06:59 18:59 Intake Total 1220 400 Output Total 2434 260 Balance -1214 -260 400 Weight 106.4 kg 105.5 kg Intake: IV 600 50 Dextrose 5% in Water 1, 550 000 ml @ 50 mls/hr IV . Q20H [facility] Rx#:[id number] Ertapenem 1 gm In Sodium 50 50 Chloride 0.9% 50 ml @ 100 mls/hr IVPB Q24HR [facility] Rx #:[id number] Oral 580 350 Tube Feeding 40 Output: Urine 2430 255 Stool 4 5 Other: Voiding Method Indwelling Catheter Incontinent Incontinent # Voids 1 1 2 # Bowel Movements 1 1 2 ABP, PAP, CO, CI - Last Documented Arterial Blood Pressure 145/66 - Exam PHYSICAL EXAM: VITAL SIGNS: As above GENERAL: [Sitting up in bed, no acute distress HEENT: [Pupils equal conjunctiva normal. Oral mucosa moist] NECK: [Supple, no JVD] RESPIRATORY EFFORT:[ Normal] LUNGS: [Diminished, fine right basilar crackles, no rhonchi, no wheezing] CARDIOVASCULAR[ regular S1 and S2, no murmurs rubs or gallop, trace edema] GI: [Abdomen soft, nontender, positive bowel sounds.] PSYCH/NEURO: Alert and oriented 2, confused, moves all 4 extremities, strength and sensation grossly intact. No focal deficits. Recognizes brother. Microbiology 02/28/17 10:50 Blood Blood Culture - Final No Growth after 144 hours 02/27/17 23:22 Sputum Gram Stain - Final 02/27/17 23:22 Sputum Sputum Culture - Final Demi albicans Demi glabrata 02/27/17 12:01 Blood Blood Culture Gram Stain - Final 02/27/17 12:01 Blood Blood Culture - Final Escherichia coli 02/26/17 22:35 Urine,Voided Urine Culture - Final Escherichia coli 02/26/17 19:05 Blood Blood Culture Gram Stain - Final 02/26/17 19:05 Blood Blood Culture - Final Escherichia coli 02/26/17 19:05 Blood Blood Culture Gram Stain - Final 02/26/17 19:05 Blood Blood Culture - Final Escherichia coli 02/27/17 12:01 Blood Blood Culture - Final 02/26/17 19:05 Blood Blood Culture - Final 02/26/17 19:05 Blood Blood Culture - Final - Labs CBC & Chem 7: 03/07/17 08:04 03/07/17 08:04 Labs: Abnormal Lab Results - Last 24 Hours (Table) 03/06/17 03/07/17 03/07/17 Range/Units 17:08 07:22 08:04 WBC 23.2 H (3.8-10.6) k/uL Hgb 12.6 L (13.0-17.5) gm/dL RDW 16.3 H (11.5-15.5) % Neutrophils # 21.2 H (1.3-7.7) k/uL PT (9.0-12.0) sec INR (<1.2) Carbon Dioxide (22-30) mmol/L BUN (9-20) mg/dL Glucose (74-99) mg/dL POC Glucose (mg/dL) 139 H 118 H (75-99) mg/dL Total Protein (6.3-8.2) g/dL Albumin (3.5-5.0) g/dL 03/07/17 03/07/17 03/07/17 Range/Units 08:04 08:04 12:26 WBC (3.8-10.6) k/uL Hgb (13.0-17.5) gm/dL RDW (11.5-15.5) % Neutrophils # (1.3-7.7) k/uL PT 12.1 H (9.0-12.0) sec INR 1.2 H (<1.2) Carbon Dioxide 33 H (22-30) mmol/L BUN 38 H (9-20) mg/dL Glucose 102 H (74-99) mg/dL POC Glucose (mg/dL) 107 H (75-99) mg/dL Total Protein 5.3 L (6.3-8.2) g/dL Albumin 2.8 L (3.5-5.0) g/dL Microbiology - Last 24 Hours (Table) 02/28/17 10:50 Blood Culture - Final Blood No Growth after 144 hours Assessment and Plan Plan: 1. Severe sepsis , septic shock secondary to bacteremia and UTI with ESBL present on admission. 2. [ Change in mental status, acute on chronic metabolic encephalopathy]. 3. [ Acute hypoxic respiratory failure secondary to sepsis, possible pneumonia in a patient with history of recent treated pneumonia]. 4. [Acute renal failure, possibly due to prerenal factors with possible chronic kidney disease, stage III 5. [ Hypernatremia, improved Plan: Continue on current medication regime, ertapenem, nebulized bronchodilators, steroids,lasix, monitoring and symptomatic treatment. PT/OT. Discharge planning in progress for discharge to [facility] re[facility]. Antibiotics as per ID. Patient has been cleared for transfer out of ICU per angular developer. Further recommendations to follow. The impression and plan of care has been dictated as directed. : I performed a H&P examination of this patient and discussed the same with the dictator. I agree with the dictator's note. Any additional findings/opinions/ etc. will be noted.
[2017-03-07 17:20] LABS: Glucose,Whole Blood 119 mg/dL (75-99)
[2017-03-07 21:06] LABS: Glucose,Whole Blood 109 mg/dL (75-99)
[2017-03-07] MEDS: traZODone HCL 100 MG TAB PO SCH (22:22)
[2017-03-07] MEDS: BENZTROPINE MESYLATE 1 MG TAB PO SCH (22:22)
[2017-03-07] MEDS: ATORVASTATIN 20 MG TAB PO SCH (22:22)
[2017-03-08] MEDS: methylPREDNISolone SOD SUCCI 40 MG/ML 1 ML VIAL IV SCH ×4 (00:29→17:43)
[2017-03-08 07:38] LABS: Glucose,Whole Blood 109 mg/dL (75-99)
[2017-03-08] MEDS: INSULIN LISPRO (humaLOG) 300 UNIT/3 ML VIAL SQ SCH ×4 (08:06→21:33)
[2017-03-08] MEDS: IPRATROPIUM-ALBUTEROL 3 ML NEB INHALATION SCH ×4 (08:08→19:33)
[2017-03-08 09:02] LABS: Anisocytosis Slight; Basophils % (A) 0 %; CH 25.4; CHCM 29.9; Eosinophils % (A) 0 %; HCT 42.5 % (39.0-53.0); HDW 3.01; HGB 12.7 gm/dL (13.0-17.5); Hypochromasia Marked; Luc # (Auto) 0.09; Luc % (Auto) 0; Lymphocytes # (A) 1.1 k/uL (1.0-4.8); Lymphocytes % (A) 4 %; MCH 25.3 pg (25.0-35.0); MCHC 29.8 g/dL (31.0-37.0); Mean Platelet Volume 8.9; Monocytes # (A) 0.5 k/uL (0-1.0); Monocytes % (A) 2 %; Neutrophils # (A) 22.5 k/uL (1.3-7.7); Neutrophils % (A) 93 %; RBC 5.01 m/uL (4.30-5.90); RDW 17.1 % (11.5-15.5); WBC 24.2 k/uL (3.8-10.6); WBC (Perox) 24.88
[2017-03-08] MEDS: ERTAPENEM 1 GM in SODIUM CHLORIDE 0.9% 50 ML IVPB SCH (09:17)
[2017-03-08] MEDS: ENOXAPARIN 40 MG/0.4 ML SYRINGE SQ SCH (09:17)
[2017-03-08] MEDS: FUROSEMIDE 40 MG TAB PO SCH (09:17)
[2017-03-08] MEDS: PANTOPRAZOLE 40 MG TABLET PO SCH (09:17)
[2017-03-08] MEDS: NYSTATIN 100,000 UNIT/GM POWD 15 GM TOPICAL SCH ×2 (09:18→21:33)
--- NOTE | 2017-03-08 11:31 | P.PN ---
Subjective Principal diagnosis: Acute septic shock secondary to E. coli urinary tract infection. A 71-year-old male patient who was admitted yesterday through the emergency department because of nausea, diminished oral intake, generalized weakness and lethargy. The patient apparently had dropped his oral intake and he was feeling progressively more weak. Denied having any chest pain. No cough or sputum production. No abdominal pain or abdominal distention. The patient was felt to be septic of a urinary source. His white cell count was elevated at 28.5 and the patient was also in acute kidney injury. Lactic acid was nonelevated. The patient's urinalysis was significant abnormal with significant number of white cell count and bacteria and the urine itself was quite dirty. The Carrasco catheter was inserted. The patient was started on a combination of vancomycin and Zosyn and he was admitted to the medical floor. This afternoon, the patient became hypotensive and diaphoretic. His blood pressure dropped down to the 50s systolic. At the same time the patient became tachycardic with a heart rate of 120. He was also becoming progressively more lethargic. He was on 6 L oxygen nasal cannula and his pulse ox was around 94%. The patient was brought into the intensive care unit. A triple lumen catheter was inserted. The patient was on IV fluids and pressors. For now the patient is already received 1-1/2 L of IV fluid in the form of normal saline. Levo fed was also initiated at 10 mics initially and currently it's at 30 mics. Urine output is diminished at this point. The patient was subsequently intubated as the patient did not he felt to be awake enough to protect his airway and he be has becoming progressively more hypoxic. I intubated this patient and put him on a mechanical ventilator on assist control mode at the rate of 24, tidal volume 500, PEEP of 5 and FiO2 100%. The patient will have a blood gases and chest x-ray done and these are still pending for now. The patient is known to me. Of taking care of him during a recent bout of sepsis and respiratory failure. The patient came into the ICU last month unresponsive and he was and CO2 narcosis. He was also in acute respiratory failure. He was a shock on pressors. Echocardiogram back then showed an ejection fraction of 40-45% with secondary pulmonary hypertension. CT angios the chest showed no evidence of any pulmonary embolism and there was a tonic right-sided pleural effusion. The patient was ultimately stabilized. He was assumed to have a right lower lobe pneumonia which was treated. All of the cultures came back negative. He was extubated. His acute kidney injury recovered. He was discharged to [facility] on a course of Levaquin On 02/28/2017 the patient is being seen in a follow-up. As mentioned earlier, the patient has gone into respiratory failure due to a complicated urinary tract infection septic shock. He was also intubated and placed on a mechanical ventilator. This morning, his FiO2 is down to 40% with a PEEP of 5 and he has a tidal volume of 500 with a rate of 24. His chest x-ray shows a chronic right- sided pleural effusion and the ET tube is in a good location and the patient has a left subclavian triple-lumen catheter in place. Also, the blood gas shows a pH of 7.37 with a pCO2 of 40 and pO2 of 115. Hemodynamically, the patient has been adequately resuscitated IV fluids. The patient is currently off pressors. White cell count is down to 20.5. The patient has gram-negative bacilli in his blood. ID is on the case. He is a currently on a combination of Zosyn and Levaquin. Vancomycin was discontinued. The patient is producing adequate amount of urine output. He is still in acute kidney injury yet his is nonoliguric. He is producing adequate amount of urine output. Blood sugars under good control. We'll start low-grade/rate tube feeds on him today. I discussed the case with his brother the bedside. On 03/01/2017 the patient is being seen in follow-up. He remains on assist control mode of ventilation with a rate of 24, tidal volume of 500 with an FiO2 of 40% and PEEP of 5. Peak airway pressures around 30 to anesthetic pressures around 20 and on today's evaluation is slightly bronchospastic and wheezy. He was given a sedation holiday. The weaning parameters was checked was poor. He was given a brief this point is breathing trial if her support of 5 and a PEEP of 5 which she was unable to tolerate as the patient became tachypneic and tachycardic. The trial was aborted. The patient is off sedation for now. He is calm and comfortable. Hemodynamically stable. He is off pressors. Function is improving and creatinine is down to 3. White cell count is also improving. Is down to 18. The blood culture was positive for E. coli which is an ESBL producing organism. The patient is on Zosyn and Levaquin and I think this may need to be switched to an antibiotic that covers ESBL, probably Merrem and for that reason this will be discussed with infectious disease. We'll start tube feeds. Possibly no extubation today based on the fifth spontaneous breathing trial. We'll may try the same prosthetic and around 2:00. I came to realize that was felt to put the patient on breathing treatments after being on the mechanical ventilator. He is also known to have COPD. Patient was reevaluated today on 03/02/2017, remains on mechanical ventilation, vent settings are tidal volume of 500, assist control rate of 24 FiO2 of 40% and PEEP of 5. ABG showed a pO2 of 95 pCO2 of 37 pH of 7.41. Basic metabolic profile was relatively normal, however BUN is 70 creatinine is 2.44. Renal profile seems to be steadily improving over the last few days. Peak airway pressure is about 32 plateau pressures about 20. Patient is presently off pressors, however according to the nurses when he was weaned off sedation, he became extremely agitated and restless tachycardic and tachypneic. Hence he had to be placed back on propofol. Patient is now on ertapenem for ESBL producing organism/E. coli. Patient is also on nutritional support via enteral feeding. Chest x-ray was reviewed and there seems to be evidence of right basilar atelectasis, and possibly small or moderate pleural effusion on the right side. May eventually consider ultrasound guided thoracentesis if his chest x-ray does not show much improvement. Patient was reevaluated today on 03/03/2017, remains on mechanical ventilation, ventilator settings as noted above, unchanged, ABG reviewed pO2 of 99 pCO2 of 37 pH of 7.45. CBC is relatively unremarkable. Chest x-ray continues to show a significant amount of consolidation of the right lower lobe and possibly a right parapneumonic effusion. Renal profile was reviewed, sodium remains a bit elevated although the patient is receiving free water via nasogastric tube. Creatinine is improving, 1.96 today. BUN is 68. Patient is arousable, follows simple instructions shortly after sedation was placed on hold. However I'm waiting until he is more awake, and I would likely recommend a short trial using pressure support and CPAP. Patient was reevaluated today on 03/04/2017, remains on mechanical ventilation, ventilator settings are unchanged, ABG was reviewed, chest x-ray continues to show right lower lobe consolidation and right parapneumonic effusion. Patient is hemodynamically stable, seems to be quite arousable, follows simple instructions, patient was given about 1 hour trial of pressure support and CPAP , and he was noted to tolerate the weaning mode quite well. Hence patient was extubated while I was at bedside to a nasal cannula 4 L/m. CBC was relatively normal. ABG showed a pO2 of 106 pCO2 of 40 pH of 7.47. Sodium 148 BUN is 63 creatinine is 1.50. His renal profile has been gradually improving since the day of admission. Chest x-ray was also reviewed there may be a slight improvement, the right pleural effusion seems to be borderline, I'm still debating whether to proceed with thoracentesis, but this would likely be done, if the pleural effusion gets any worse. Patient was reevaluated today on 03/05/2017, patient was extubated yesterday on , tolerated the extubation better than expected. Patient is now on nasal cannula at 4 L, relatively asymptomatic. Patient is a bit confused, however he knows that he is at [facility], and he knows the year. Patient denies any shortness of breath, no cough, no wheezing. Remains hemodynamically stable, not requiring any pressors. Urine output has been excellent and renal functioning has been steadily improving almost back to normal today. Chest x-ray continues to show some right lower lobe consolidation and right parapneumonic effusion presently too small to consider thoracentesis. CBC is relatively unremarkable. Electrolytes are relatively normal except for sodium of 147 BUN is 53 creatinine is 1.20. Patient will have a swallow evaluation, and if he does well will start oral feeding. Patient is not quite ready to be transferred out of the ICU, I plan to keep him for the next 24 hours, and if he continues to do well with planned transfer out of the ICU tomorrow. Reevaluated today on 03/06/2017, patient continues to tolerate extubation, doing much better, breathing a lot easier. Not requiring any pressors, he is hemodynamically stable, urine output seems to be adequate, chest x-ray continues to show some airspace disease in the right lower lobe and possibly a small right pleural effusion. However does not seem to be compromising his pulmonary status, hence I do not plan to do thoracentesis at this point. CBC was reviewed is relatively normal basic metabolic profile is normal renal profile showed a BUN of 46 creatinine 1.0. Reevaluated today on 03/07/2017, patient is doing extremely well, in no form of respiratory distress, has some underlying confusion, but overall the patient is doing great. Actually he has no active pulmonary symptoms whatsoever. WBC count is noted to be elevated at 23.2, hence I will recommend that we remove his central line, continue antibiotics, and keep a close watch on his labs over the weekend. Basic metabolic profile is normal, normal profile is back to normal almost. Chest x-ray continues to show airspace disease in the right lower lobe. And small pleural effusion. Overall the chest x-ray is improving. Reevaluated today on 03/08/2017, continues to do well, remains on antibiotics, bronchodilators, patient is intermittently confused, but I believe that is about his baseline. I had a discussion with his brother and his [id number] yesterday. Explained to them the importance of possibly arranging for him to be transferred to a rehab facility for at least a week or 2 weeks. Patient may also need a long-term of IV antibiotics, and that'll be decided upon by infectious disease on the case. Pulmonary-rapp, patient is on room air, no cough no wheezing no shortness of breath. His last chest x-ray showed some airspace disease in the right lower lobe and a small right pleural effusion. His left subclavian central line was removed yesterday. Patient continues to have a bit of leukocytosis with WBC count of 24.2 hemoglobin is 12.7. Objective - Vital Signs Vital signs: Vital Signs Temp 98.0 F 03/08/17 07:00 Pulse 92 03/08/17 08:20 Resp 18 03/08/17 07:00 BP 136/70 03/08/17 07:00 Pulse Ox 97 03/08/17 07:00 Intake & Output 03/07/17 03/08/17 03/08/17 18:59 06:59 18:59 Intake Total 400 50 300 Output Total 3 Balance 400 47 300 Weight 101 kg Intake: IV 50 50 Ertapenem 1 gm In Sodium 50 50 Chloride 0.9% 50 ml @ 100 mls/hr IVPB Q24HR [facility] Rx #:[id number] Oral 350 300 Output: Stool 3 Other: Voiding Method Incontinent Incontinent Incontinent # Voids 2 2 1 # Bowel Movements 2 ABP, PAP, CO, CI - Last Documented Arterial Blood Pressure 145/66 - Exam Physical Exam: Revealed a 71-year-old white male on nasal cannula, in no distress. HEENT:[Neck is supple.] [No neck masses.] [No thyromegaly.] [No JVD.] Chest: [Diminished breath sounds at the bases, minimal crackles at the right base. Cardiac Exam: [Normal S1 and S2, no S3 gallop, no murmur.] Abdomen: [Soft, nontender, no megaly, no rebound, no guarding, normal bowel sounds.] Extremities: [No clubbing, no edema, no cyanosis.] Neurological Exam: No focal neurologic deficit - Labs CBC & Chem 7: 03/08/17 08:25 03/07/17 08:04 Labs: Abnormal Lab Results - Last 24 Hours (Table) 03/07/17 03/07/17 03/07/17 Range/Units 12:26 17:13 21:01 WBC (3.8-10.6) k/uL Hgb (13.0-17.5) gm/dL MCHC (31.0-37.0) g/dL RDW (11.5-15.5) % Neutrophils # (1.3-7.7) k/uL POC Glucose (mg/dL) 107 H 119 H 109 H (75-99) mg/dL 03/08/17 03/08/17 Range/Units 07:27 08:25 WBC 24.2 H (3.8-10.6) k/uL Hgb 12.7 L (13.0-17.5) gm/dL MCHC 29.8 L (31.0-37.0) g/dL RDW 17.1 H (11.5-15.5) % Neutrophils # 22.5 H (1.3-7.7) k/uL POC Glucose (mg/dL) 109 H (75-99) mg/dL Microbiology - Last 24 Hours (Table) 03/07/17 18:15 Catheter Tip Culture - Preliminary Catheter Tip Assessment and Plan Plan: 1 septic shock secondary to a E. coli urinary tract infection. The patient has been adequately resuscitated with IV fluids. The patient's blood pressure is normalized and currently is off pressors. It is an ESBL producing organism. Patient is already on ertapenem. 2 shock secondary to above. This is septic shock. 3 E. coli /ESBL producing organism sepsis secondary to a urinary tract infection 4 acute respiratory failure secondary to above. Currently intubated on mechanical ventilator. The patient is broken spastic and wheezy on today's evaluation. He'll be started on DuoNeb nebulized treatments and steroids. 5 chronic right-sided pleural effusion small to moderate in size, patient will have ultrasound today, if the fluid is large enough and freely moving, may consider thoracentesis. 6 Obesity 7 acute kidney injury, improving 8 chronic psychiatric disorder and the patient has been maintained on multiple psychotropic medication including Abilify, trazodone, Cogentin and Lamictal on outpatient basis. He has underlying PTSD/bipolar disorder/depression 9 COPD 10 detention resident 11 hypertension 12 hyperlipidemia 13 chronic smoker 14 preserved LV function based on recent echocardiogram with an ejection fraction of 40% 15 status post extubation after a trial of pressure support and CPAP, this was done on . Recommendation: Patient was extubated on 03/04/2017, continues to tolerate the extubation well, continue incentive spirometry, recommend physical therapy, and possible discharge planning to a rehab facility on Thursday. His central line was discontinued yesterday, and a peripheral access was established. Patient may need IV antibiotics on outpatient basis, and may eventually require a PICC line. That could be decided upon by infectious disease on the case. Time with Patient: Less than 30
[2017-03-08 12:04] LABS: Glucose,Whole Blood 127 mg/dL (75-99)
[2017-03-08 17:17] LABS: Glucose,Whole Blood 116 mg/dL (75-99)
--- NOTE | 2017-03-08 19:21 | P.PN ---
Subjective 03/03/17 Interval history: This a 71-year-old gentleman admitted with severe sepsis secondary to ESBL bacteremia,UTI, acute on chronic metabolic encephalopathy, acute hypoxic respiratory failure and acute renal failure and multiple other medical issues. Off pressors. Maintained on mechanical ventilation of 40% FiO2/ +5 of PEEP. Suctioning tenacious white secretions from endotracheal tube .Yesterday tolerated initial CPAP for about 15 minutes, today tolerated longer for nearly an hour and then became tachycardic; returned to mechanical ventilation. Tolerating tube feeds at goal with minimal to no residuals. Sodium elevated at 149, water flushes increased. Renal function improving. Chest x-ray reporting persistent airspace consolidation right lower lobe with associated pleural effusions without failure. Ultrasound of chest performed with left-sided Marked for potential thoracentesis. 03/04/2017 extubated this morning, currently maintaining on 4 L nasal cannula .Chest x-ray reporting slightly improving pulmonary vascular congestion, moderate right small left pleural effusion, adjacent atelectasis and/or consolidation. Pulmonary discussing potential thoracentesis. Positive bowel movement. Telemetry sinus rhythm with occasional PVCs and PACs. IV fluids changed to D5W secondary to hypernatremia as patient no longer receiving free water flushes. Sodium currently 148. 03/05/2017. Confusion improving, maintained on 4 L nasal cannula. Chest x-ray reporting decreasing small right greater than left pleural effusions with adjacent atelectasis/consolidation, pulmonary vascular congestion. Diarrhea lessening, with a couple episodes last night and once this morning; tested negative for C. difficile colitis. Renal function continues to improve. Underwent swallow evaluation, results pending. Maintained on D5W IV fluid hydration, Sodium 147. 03/06/2017 breathing continues to improve, maintaining O2 sats in the 90s on 4 L nasal cannula. Chest x-ray reporting persistent right lower lobe airspace disease, small right pleural effusion. Maintained on D5W with sodium now normalized. 03/07/2017 transferred out of ICU, currently on MedSurg unit. Maintained on IV antibiotics. Elevated WBC, 23.2,afebrile. Central line being discontinued with tip cultured. Confused. Extremely weak. 03/08/17 states to be doing better no new complaints reported no overnight events reported by staff Review of systems: none other than stated above - Exam PHYSICAL EXAM: VITAL SIGNS: As above GENERAL: [Sitting up in bed, no acute distress HEENT: [Pupils equal conjunctiva normal. Oral mucosa moist] NECK: [Supple, no JVD] RESPIRATORY EFFORT:[ Normal] LUNGS: [Diminished, fine right basilar crackles, no rhonchi, no wheezing] CARDIOVASCULAR[ regular S1 and S2, no murmurs rubs or gallop, trace edema] GI: [Abdomen soft, nontender, positive bowel sounds.] PSYCH/NEURO: Alert and oriented 3 moves all 4 extremities, strength and sensation grossly intact. No focal deficits. Assessment and Plan Plan: 1. Severe sepsis , septic shock secondary to bacteremia and UTI with ESBL present on admission. 2. [ Change in mental status, acute on chronic metabolic encephalopathy]., improving 3. [ Acute hypoxic respiratory failure secondary to sepsis, possible pneumonia in a patient with history of recent treated pneumonia]. 4. [Acute renal failure, possibly due to prerenal factors with possible chronic kidney disease, stage III 5. [ Hypernatremia, improved Plan: central line removed tip culture repeat blood cultures is negative will likely need 14 days of iv abx with invanz picc delbert?? dc to NH i Objective - Vital Signs Vital signs: Vital Signs Temp 97.3 F L 03/08/17 14:14 Pulse 65 03/08/17 14:14 Resp 20 03/08/17 14:14 BP 136/70 03/08/17 14:14 Pulse Ox 94 L 03/08/17 14:14 Intake & Output 03/08/17 03/08/17 03/09/17 06:59 18:59 06:59 Intake Total 50 400 Output Total 3 Balance 47 400 Weight 101 kg Intake: IV 50 100 Ertapenem 1 gm In Sodium 50 100 Chloride 0.9% 50 ml @ 100 mls/hr IVPB Q24HR [facility] Rx #:[id number] Oral 300 Output: Stool 3 Other: Voiding Method Incontinent Incontinent # Voids 2 2 ABP, PAP, CO, CI - Last Documented Arterial Blood Pressure 145/66 - Labs CBC & Chem 7: 03/08/17 08:25 03/07/17 08:04 Labs: Abnormal Lab Results - Last 24 Hours (Table) 03/07/17 03/08/17 03/08/17 Range/Units 21:01 07:27 08:25 WBC 24.2 H (3.8-10.6) k/uL Hgb 12.7 L (13.0-17.5) gm/dL MCHC 29.8 L (31.0-37.0) g/dL RDW 17.1 H (11.5-15.5) % Neutrophils # 22.5 H (1.3-7.7) k/uL POC Glucose (mg/dL) 109 H 109 H (75-99) mg/dL 03/08/17 03/08/17 Range/Units 11:58 17:14 WBC (3.8-10.6) k/uL Hgb (13.0-17.5) gm/dL MCHC (31.0-37.0) g/dL RDW (11.5-15.5) % Neutrophils # (1.3-7.7) k/uL POC Glucose (mg/dL) 127 H 116 H (75-99) mg/dL Microbiology - Last 24 Hours (Table) 03/07/17 18:15 Catheter Tip Culture - Preliminary Catheter Tip Coagulase Negative Staph
[2017-03-08 20:57] LABS: Glucose,Whole Blood 139 mg/dL (75-99)
[2017-03-08] MEDS: traZODone HCL 100 MG TAB PO SCH (21:32)
[2017-03-08] MEDS: ATORVASTATIN 20 MG TAB PO SCH (21:33)
[2017-03-08] MEDS: BENZTROPINE MESYLATE 1 MG TAB PO SCH (21:33)
[2017-03-09] MEDS: methylPREDNISolone SOD SUCCI 40 MG/ML 1 ML VIAL IV SCH ×4 (00:39→17:32)
[2017-03-09 07:18] LABS: Glucose,Whole Blood 116 mg/dL (75-99)
[2017-03-09] MEDS: IPRATROPIUM-ALBUTEROL 3 ML NEB INHALATION SCH ×4 (07:27→19:36)
[2017-03-09] MEDS: INSULIN LISPRO (humaLOG) 300 UNIT/3 ML VIAL SQ SCH ×4 (08:26→22:19)
[2017-03-09] MEDS: FUROSEMIDE 40 MG TAB PO SCH (09:49)
[2017-03-09] MEDS: PANTOPRAZOLE 40 MG TABLET PO SCH (09:49)
[2017-03-09] MEDS: NYSTATIN 100,000 UNIT/GM POWD 15 GM TOPICAL SCH ×2 (09:50→22:20)
[2017-03-09] MEDS: ERTAPENEM 1 GM in SODIUM CHLORIDE 0.9% 50 ML IVPB SCH (09:50)
[2017-03-09] MEDS: ENOXAPARIN 40 MG/0.4 ML SYRINGE SQ SCH (09:50)
[2017-03-09 10:58] VITALS: BMI 32.7
[2017-03-09 12:37] LABS: Glucose,Whole Blood 111 mg/dL (75-99)
--- NOTE | 2017-03-09 12:44 | P.PN ---
Subjective Progress note dated 03/09/2017 This is a 71-year-old patient with a history of E. coli urinary tract infection/ septic shock. The patient was adequately resuscitated with IV fluids and antibiotics. He was on pressors but his been weaned off. The patient has a history of vomiting extended spectrum beta-lactamase producing E. coli. Also the episode of acute respiratory failure requiring intubation and mechanical ventilation. He has a history of chronic right-sided pleural effusion which is small to moderate in size. In addition the patient has history of obesity acute kidney injury chronic psychiatric conditions COPD and hypertension. The patient also has a history of hyperlipidemia and chronic tobacco use. Objective - Vital Signs Vital signs: Vital Signs Temp 96.2 F L 03/09/17 07:00 Pulse 88 03/09/17 11:10 Resp 18 03/09/17 07:00 BP 137/69 03/09/17 07:00 Pulse Ox 96 03/09/17 07:10 Intake & Output 03/08/17 03/09/17 03/09/17 18:59 06:59 18:59 Intake Total 400 1200 Balance 400 1200 Weight 103.5 kg 103.5 kg Intake: IV 100 Ertapenem 1 gm In Sodium 100 Chloride 0.9% 50 ml @ 100 mls/hr IVPB Q24HR [facility] Rx #:[id number] Oral 300 1200 Other: Voiding Method Incontinent Incontinent # Voids 2 2 ABP, PAP, CO, CI - Last Documented Arterial Blood Pressure 145/66 - Exam No acute distress, oriented 3. HEENT examination is grossly unremarkable. Mucous membranes are moist. No oral lesions. Neck supple. Full range of motion. No adenopathy thyromegaly or neck vein distention. Cardiovascular examination reveals regular rhythm rate. S1-S2 normal. No S3- S4 or murmur. Lungs reveal mostly clear breath sounds. A few scattered mild rhonchi. No crackles or wheezes. Breath sounds are equal bilaterally. Abdomen soft bowel sounds are heard. No so masses or tenderness. Extremities are intact. No cyanosis clubbing or edema. Skin without rash. Neurologic examination is nonfocal. - Labs CBC & Chem 7: 03/08/17 08:25 03/07/17 08:04 Labs: Abnormal Lab Results - Last 24 Hours (Table) 03/08/17 03/08/17 03/09/17 Range/Units 17:14 20:52 07:12 POC Glucose (mg/dL) 116 H 139 H 116 H (75-99) mg/dL 03/09/17 Range/Units 12:24 POC Glucose (mg/dL) 111 H (75-99) mg/dL Microbiology - Last 24 Hours (Table) 03/07/17 18:15 Catheter Tip Culture - Preliminary Catheter Tip Coagulase Negative Staph Assessment and Plan (1) Pleural effusion Status: Acute (2) Obesity Status: Acute (3) Acute kidney injury Status: Acute (4) COPD (chronic obstructive pulmonary disease) Status: Acute (5) Hypertension Status: Acute (6) Hyperlipidemia Status: Acute (7) Sepsis Status: Acute (8) Septic shock Status: Acute (9) Urinary tract infection Status: Acute (10) Acute respiratory failure Status: Acute (11) Troponin level elevated Status: Acute Plan: Plan dated 03/09/2017 The patient seems reasonably stable from the pulmonary standpoint. Was extubated on March 04. The patient continues to use breathing treatments in the incentive spirometer. Discharge planning underway. Central line was discontinued on the . The patient continues to be on all appropriate medications. We'll continue to follow. Prognosis is guarded. Time with Patient: Less than 30
--- NOTE | 2017-03-09 16:43 | P.PN ---
Subjective Progress Note dictated for Dr. Wagner 03/03/17 Interval history: This a 71-year-old gentleman admitted with severe sepsis secondary to ESBL bacteremia,UTI, acute on chronic metabolic encephalopathy, acute hypoxic respiratory failure and acute renal failure and multiple other medical issues. Off pressors. Maintained on mechanical ventilation of 40% FiO2/ +5 of PEEP. Suctioning tenacious white secretions from endotracheal tube .Yesterday tolerated initial CPAP for about 15 minutes, today tolerated longer for nearly an hour and then became tachycardic; returned to mechanical ventilation. Tolerating tube feeds at goal with minimal to no residuals. Sodium elevated at 149, water flushes increased. Renal function improving. Chest x-ray reporting persistent airspace consolidation right lower lobe with associated pleural effusions without failure. Ultrasound of chest performed with left-sided Marked for potential thoracentesis. 03/04/2017 extubated this morning, currently maintaining on 4 L nasal cannula .Chest x-ray reporting slightly improving pulmonary vascular congestion, moderate right small left pleural effusion, adjacent atelectasis and/or consolidation. Pulmonary discussing potential thoracentesis. Positive bowel movement. Telemetry sinus rhythm with occasional PVCs and PACs. IV fluids changed to D5W secondary to hypernatremia as patient no longer receiving free water flushes. Sodium currently 148. 03/05/2017. Confusion improving, maintained on 4 L nasal cannula. Chest x-ray reporting decreasing small right greater than left pleural effusions with adjacent atelectasis/consolidation, pulmonary vascular congestion. Diarrhea lessening, with a couple episodes last night and once this morning; tested negative for C. difficile colitis. Renal function continues to improve. Underwent swallow evaluation, results pending. Maintained on D5W IV fluid hydration, Sodium 147. 03/06/2017 breathing continues to improve, maintaining O2 sats in the 90s on 4 L nasal cannula. Chest x-ray reporting persistent right lower lobe airspace disease, small right pleural effusion. Maintained on D5W with sodium now normalized. 03/07/2017 transferred out of ICU, currently on MedSurg unit. Maintained on IV antibiotics. Elevated WBC, 23.2,afebrile. Central line being discontinued with tip cultured. Confused. Extremely weak. 03/08/17 states to be doing better no new complaints reported no overnight events reported by staff 03/09/2017 continues to do well, scheduled for PICC line tomorrow,Lovenox placed on hold. Objective - Vital Signs Vital signs: Vital Signs Temp 98.0 F 03/09/17 15:00 Pulse 84 03/09/17 15:23 Resp 20 03/09/17 15:00 BP 130/76 03/09/17 15:00 Pulse Ox 95 03/09/17 15:00 Intake & Output 03/08/17 03/09/17 03/09/17 18:59 06:59 18:59 Intake Total 400 1200 Balance 400 1200 Weight 103.5 kg 103.5 kg Intake: IV 100 Ertapenem 1 gm In Sodium 100 Chloride 0.9% 50 ml @ 100 mls/hr IVPB Q24HR [id number] Rx #:[id number] Oral 300 1200 Other: Voiding Method Incontinent Incontinent Incontinent # Voids 2 2 4 ABP, PAP, CO, CI - Last Documented Arterial Blood Pressure 145/66 - Exam PHYSICAL EXAM: VITAL SIGNS: As above GENERAL: [Sitting up in bed, no acute distress HEENT: [Pupils equal conjunctiva normal. Oral mucosa moist] NECK: [Supple, no JVD] RESPIRATORY EFFORT:[ Normal] LUNGS: [Diminished, fine right basilar crackles, no rhonchi, no wheezing] CARDIOVASCULAR[ regular S1 and S2, no murmurs rubs or gallop, trace edema] GI: [Abdomen soft, nontender, positive bowel sounds.] PSYCH/NEURO: Alert and oriented 2, confused, moves all 4 extremities, strength and sensation grossly intact. No focal deficits. Recognizes brother. Microbiology 02/28/17 10:50 Blood Blood Culture - Final No Growth after 144 hours 02/27/17 23:22 Sputum Gram Stain - Final 02/27/17 23:22 Sputum Sputum Culture - Final Demi albicans Demi glabrata 02/27/17 12:01 Blood Blood Culture Gram Stain - Final 02/27/17 12:01 Blood Blood Culture - Final Escherichia coli 02/26/17 22:35 Urine,Voided Urine Culture - Final Escherichia coli 02/26/17 19:05 Blood Blood Culture Gram Stain - Final 02/26/17 19:05 Blood Blood Culture - Final Escherichia coli 02/26/17 19:05 Blood Blood Culture Gram Stain - Final 02/26/17 19:05 Blood Blood Culture - Final Escherichia coli 02/27/17 12:01 Blood Blood Culture - Final 02/26/17 19:05 Blood Blood Culture - Final 02/26/17 19:05 Blood Blood Culture - Final - Labs CBC & Chem 7: 03/08/17 08:25 03/07/17 08:04 Labs: Abnormal Lab Results - Last 24 Hours (Table) 03/08/17 03/08/17 03/09/17 Range/Units 17:14 20:52 07:12 POC Glucose (mg/dL) 116 H 139 H 116 H (75-99) mg/dL 03/09/17 Range/Units 12:24 POC Glucose (mg/dL) 111 H (75-99) mg/dL Microbiology - Last 24 Hours (Table) 03/07/17 18:15 Catheter Tip Culture - Final Catheter Tip Staphylococcus epidermidis Assessment and Plan Plan: 1. Severe sepsis , septic shock secondary to bacteremia and UTI with ESBL present on admission. 2. [ Change in mental status, acute on chronic metabolic encephalopathy]. 3. [ Acute hypoxic respiratory failure secondary to sepsis, possible pneumonia in a patient with history of recent treated pneumonia]. 4. [Acute renal failure, possibly due to prerenal factors with possible chronic kidney disease, stage III 5. [ Hypernatremia, improved Plan: Continue on current medication regime, ertapenem, nebulized bronchodilators, steroids,lasix, monitoring and symptomatic treatment. PICC line tomorrow morning, discharge antibiotics pending. PT/OT. Discharge planning in progress for discharge to [facility] rehab. tomorrow. Further recommendations to follow. The impression and plan of care has been dictated as directed. : I performed a H&P examination of this patient and discussed the same with the dictator. I agree with the dictator's note. Any additional findings/opinions/ etc. will be noted.
[2017-03-09 17:02] LABS: Glucose,Whole Blood 119 mg/dL (75-99)
[2017-03-09 22:09] LABS: Glucose,Whole Blood 168 mg/dL (75-99)
[2017-03-09] MEDS: BENZTROPINE MESYLATE 1 MG TAB PO SCH (22:18)
[2017-03-09] MEDS: ATORVASTATIN 20 MG TAB PO SCH (22:18)
[2017-03-09] MEDS: traZODone HCL 100 MG TAB PO SCH (22:20)
--- NOTE | 2017-03-09 22:55 | P.PN ---
Subjective Principal diagnosis: Respiratory failure 71-year-old male who is known to the pulmonary service from his hospitalization last month which point in time he had a bout of respiratory failure requiring intubation and mechanical ventilation and antibiotic therapy. Eventually improved and was discharged to [facility]. Was treated with a course of antibiotics of levofloxacin. Currently was doing well until the patient in the last day before admission became considerably more week. He was not having significant other symptoms except his profound weakness. He Was Brought to the Emergency Center Where He Was Found Evidence an Extensive Leukocytosis. Within Hours of Admission He Became Worse. He Developed Significant Hypotension and Tachycardia. Because of This He Was Transferred to the Intensive Care Unit. He Became More Hypotensive despite Fluids and Required Vasopressor Therapy. Respiratory Failure Occurred and He Required Intubation and Sedation Mechanical Ventilation. Patient is now improved. Is removed after the medical floor. This is evidence of the ESBL in his urine. Objective - Vital Signs Vital signs: Vital Signs Temp 98.0 F 03/09/17 15:00 Pulse 88 03/09/17 19:55 Resp 20 03/09/17 16:00 BP 130/76 03/09/17 15:00 Pulse Ox 95 03/09/17 15:00 Intake & Output 03/09/17 03/09/17 03/10/17 06:59 18:59 06:59 Intake Total 1200 Output Total 3 Balance 1200 -3 Weight 103.5 kg 103.5 kg Intake: Oral 1200 Output: Stool 3 Other: Voiding Method Incontinent Incontinent # Voids 2 3 # Bowel Movements 0 ABP, PAP, CO, CI - Last Documented Arterial Blood Pressure 145/66 - Exam 71-year-old male extubated HEENT: Anicteric conjunctiva are pink and moist nasal mucosa grossly intact without significant lesions, there is no thrush. Edentulous Neck: The neck is supple without significant lymphadenopathy or thyromegaly. Lungs: There are symmetrical air entry. basilar crackles are heard. Expiratory wheezes. Heart: Regular rate and rhythm with an audible S1-S2, no S3 loud S4 There is no significant murmur click or rub, PMI was nondisplaced. Abdomen: Positive bowel sounds soft and nontender without palpable masses or organomegaly. There was no guarding or rebound. Extremities: The upper and fluctuance have mild generalized edema. Extremities are cool to touch. ulcerations are seen. Neuro: awake and alert - Labs CBC & Chem 7: 03/08/17 08:25 03/07/17 08:04 Labs: Abnormal Lab Results - Last 24 Hours (Table) 03/09/17 03/09/17 03/09/17 Range/Units 07:12 12:24 16:56 POC Glucose (mg/dL) 116 H 111 H 119 H (75-99) mg/dL 03/09/17 Range/Units 22:04 POC Glucose (mg/dL) 168 H (75-99) mg/dL Microbiology - Last 24 Hours (Table) 03/07/17 18:15 Catheter Tip Culture - Final Catheter Tip Staphylococcus epidermidis Laboratory Results WBC 24.2 k/uL (3.8-10.6) H 03/08/17 08:25 RBC 5.01 m/uL (4.30-5.90) 03/08/17 08:25 Hgb 12.7 gm/dL (13.0-17.5) L 03/08/17 08:25 Hct 42.5 % (39.0-53.0) 03/08/17 08:25 MCV 85.0 fL (80.0-100.0) 03/08/17 08:25 MCH 25.3 pg (25.0-35.0) 03/08/17 08:25 MCHC 29.8 g/dL (31.0-37.0) L 03/08/17 08:25 RDW 17.1 % (11.5-15.5) H 03/08/17 08:25 Plt Count 295 k/uL (150-450) 03/08/17 08:25 Neutrophils % 93 % 03/08/17 08:25 Lymphocytes % 4 % 03/08/17 08:25 Monocytes % 2 % 03/08/17 08:25 Eosinophils % 0 % 03/08/17 08:25 Basophils % 0 % 03/08/17 08:25 Neutrophils # 22.5 k/uL (1.3-7.7) H 03/08/17 08:25 Lymphocytes # 1.1 k/uL (1.0-4.8) 03/08/17 08:25 Monocytes # 0.5 k/uL (0-1.0) 03/08/17 08:25 Eosinophils # 0.0 k/uL (0-0.7) 03/08/17 08:25 Basophils # 0.0 k/uL (0-0.2) 03/08/17 08:25 Hypochromasia Marked 03/08/17 08:25 Anisocytosis Slight 03/08/17 08:25 PT 12.1 sec (9.0-12.0) H 03/07/17 08:04 INR 1.2 (<1.2) H 03/07/17 08:04 APTT 27.0 sec (22.0-30.0) 02/26/17 19:05 D-Dimer 4.65 mg/L FEU (<0.60) H 02/26/17 19:05 Sample Site lrad 03/04/17 07:35 ABG pH 7.47 (7.35-7.45) H 03/04/17 07:35 ABG pCO2 40 mmHg (35-45) 03/04/17 07:35 ABG pO2 106 mmHg (83-108) 03/04/17 07:35 ABG HCO3 29 mmol/L (21-25) H 03/04/17 07:35 ABG Total CO2 30 mmol/L (19-24) H 03/04/17 07:35 ABG O2 Saturation 98.0 % (94-97) H 03/04/17 07:35 ABG Base Excess 4.8 mmol/L 03/04/17 07:35 FiO2 40 % 03/04/17 07:35 Sodium 140 mmol/L (137-145) 03/07/17 08:04 Potassium 4.2 mmol/L (3.5-5.1) 03/07/17 08:04 Chloride 100 mmol/L (98-107) 03/07/17 08:04 Carbon Dioxide 33 mmol/L (22-30) H 03/07/17 08:04 Anion Gap 7 mmol/L 03/07/17 08:04 BUN 38 mg/dL (9-20) H 03/07/17 08:04 Creatinine 0.96 mg/dL (0.66-1.25) 03/07/17 08:04 Est GFR (MDRD) Af Amer >60 (>60 ml/min/1.73 sqM) 03/07/17 08:04 Est GFR (MDRD) Non-Af >60 (>60 ml/min/1.73 sqM) 03/07/17 08:04 Glucose 102 mg/dL (74-99) H 03/07/17 08:04 POC Glucose (mg/dL) 168 mg/dL (75-99) H 03/09/17 22:04 POC Glu Laundry Aide ID Sima Becker 03/09/17 22:04 Lactic Ac Sepsis Rflx Y 02/26/17 19:53 Plasma Lactic Acid Ezequiel 1.1 mmol/L (0.7-2.0) 02/27/17 17:06 Calcium 8.9 mg/dL (8.4-10.2) 03/07/17 08:04 Phosphorus 3.0 mg/dL (2.5-4.5) 03/07/17 08:04 Magnesium 1.9 mg/dL (1.6-2.3) 03/07/17 08:04 Total Bilirubin 0.7 mg/dL (0.2-1.3) 03/07/17 08:04 AST 26 U/L (17-59) 03/07/17 08:04 ALT 49 U/L (21-72) 03/07/17 08:04 Alkaline Phosphatase 79 U/L (38-126) 03/07/17 08:04 Total Creatine Kinase 39 U/L (55-170) L 02/26/17 19:05 CK-MB (CK-2) 0.6 ng/mL (0.0-2.4) 02/26/17 19:05 CK-MB (CK-2) Rel Index 1.5 02/26/17 19:05 Troponin I 0.210 ng/mL (0.000-0.034) H* 02/26/17 19:05 NT-Pro-B Natriuret Pep 73739 pg/mL 02/26/17 19:05 Total Protein 5.3 g/dL (6.3-8.2) L 03/07/17 08:04 Albumin 2.8 g/dL (3.5-5.0) L 03/07/17 08:04 Urine Color Yellow 02/26/17 22:35 Urine Appearance Turbid (Clear) 02/26/17 22:35 Urine pH 5.5 (5.0-8.0) 02/26/17 22:35 Ur Specific Waldo 1.015 (1.001-1.035) 02/26/17 22:35 Urine Protein 2+ (Negative) H 02/26/17 22:35 Urine Glucose (UA) Negative (Negative) 02/26/17 22:35 Urine Ketones Negative (Negative) 02/26/17 22:35 Urine Blood Moderate (Negative) H 02/26/17 22:35 Urine Nitrite Negative (Negative) 02/26/17 22:35 Urine Bilirubin Negative (Negative) 02/26/17 22:35 Urine Urobilinogen <2.0 mg/dL (<2.0) 02/26/17 22:35 Ur Leukocyte Esterase Large (Negative) H 02/26/17 22:35 Urine RBC 19 /hpf (0-5) H 02/26/17 22:35 Urine WBC >182 /hpf (0-5) H 02/26/17 22:35 Urine WBC Clumps Occasional /hpf (None) H 02/26/17 22:35 Ur Squamous Epith Cells 1 /hpf (0-4) 02/26/17 22:35 Urine Bacteria Many /hpf (None) H 02/26/17 22:35 Hyaline Casts 4 /lpf (0-2) H 02/26/17 22:35 Granular Casts 6 /lpf (0) 02/26/17 22:35 Gastric Occult Blood Positive (Negative) 02/26/17 21:59 Random Vancomycin 7.2 ug/mL 03/01/17 04:30 C. difficile (EIA) Intrp Negative (Negative) 03/04/17 15:00 Microbiology 03/07/17 18:15 Catheter Tip Catheter Tip Culture - Final Staphylococcus epidermidis 02/28/17 10:50 Blood Blood Culture - Final No Growth after 144 hours 02/27/17 23:22 Sputum Gram Stain - Final 02/27/17 23:22 Sputum Sputum Culture - Final Demi albicans Demi glabrata 02/27/17 12:01 Blood Blood Culture Gram Stain - Final 02/27/17 12:01 Blood Blood Culture - Final Escherichia coli 02/26/17 22:35 Urine,Voided Urine Culture - Final Escherichia coli 02/26/17 19:05 Blood Blood Culture Gram Stain - Final 02/26/17 19:05 Blood Blood Culture - Final Escherichia coli 02/26/17 19:05 Blood Blood Culture Gram Stain - Final 02/26/17 19:05 Blood Blood Culture - Final Escherichia coli 02/27/17 12:01 Blood Blood Culture - Final 02/26/17 19:05 Blood Blood Culture - Final 02/26/17 19:05 Blood Blood Culture - Final Laboratory Results WBC 24.2 k/uL (3.8-10.6) H 03/08/17 08:25 RBC 5.01 m/uL (4.30-5.90) 03/08/17 08:25 Hgb 12.7 gm/dL (13.0-17.5) L 03/08/17 08:25 Hct 42.5 % (39.0-53.0) 03/08/17 08:25 MCV 85.0 fL (80.0-100.0) 03/08/17 08:25 MCH 25.3 pg (25.0-35.0) 03/08/17 08:25 MCHC 29.8 g/dL (31.0-37.0) L 03/08/17 08:25 RDW 17.1 % (11.5-15.5) H 03/08/17 08:25 Plt Count 295 k/uL (150-450) 03/08/17 08:25 Neutrophils % 93 % 03/08/17 08:25 Lymphocytes % 4 % 03/08/17 08:25 Monocytes % 2 % 03/08/17 08:25 Eosinophils % 0 % 03/08/17 08:25 Basophils % 0 % 03/08/17 08:25 Neutrophils # 22.5 k/uL (1.3-7.7) H 03/08/17 08:25 Lymphocytes # 1.1 k/uL (1.0-4.8) 03/08/17 08:25 Monocytes # 0.5 k/uL (0-1.0) 03/08/17 08:25 Eosinophils # 0.0 k/uL (0-0.7) 03/08/17 08:25 Basophils # 0.0 k/uL (0-0.2) 03/08/17 08:25 Hypochromasia Marked 03/08/17 08:25 Anisocytosis Slight 03/08/17 08:25 PT 12.1 sec (9.0-12.0) H 03/07/17 08:04 INR 1.2 (<1.2) H 03/07/17 08:04 APTT 27.0 sec (22.0-30.0) 02/26/17 19:05 D-Dimer 4.65 mg/L FEU (<0.60) H 02/26/17 19:05 Sample Site lrad 03/04/17 07:35 ABG pH 7.47 (7.35-7.45) H 03/04/17 07:35 ABG pCO2 40 mmHg (35-45) 03/04/17 07:35 ABG pO2 106 mmHg (83-108) 03/04/17 07:35 ABG HCO3 29 mmol/L (21-25) H 03/04/17 07:35 ABG Total CO2 30 mmol/L (19-24) H 03/04/17 07:35 ABG O2 Saturation 98.0 % (94-97) H 03/04/17 07:35 ABG Base Excess 4.8 mmol/L 03/04/17 07:35 FiO2 40 % 03/04/17 07:35 Sodium 140 mmol/L (137-145) 03/07/17 08:04 Potassium 4.2 mmol/L (3.5-5.1) 03/07/17 08:04 Chloride 100 mmol/L (98-107) 03/07/17 08:04 Carbon Dioxide 33 mmol/L (22-30) H 03/07/17 08:04 Anion Gap 7 mmol/L 03/07/17 08:04 BUN 38 mg/dL (9-20) H 03/07/17 08:04 Creatinine 0.96 mg/dL (0.66-1.25) 03/07/17 08:04 Est GFR (MDRD) Af Amer >60 (>60 ml/min/1.73 sqM) 03/07/17 08:04 Est GFR (MDRD) Non-Af >60 (>60 ml/min/1.73 sqM) 03/07/17 08:04 Glucose 102 mg/dL (74-99) H 03/07/17 08:04 POC Glucose (mg/dL) 168 mg/dL (75-99) H 03/09/17 22:04 POC Glu Laundry Aide ID Sima Becker 03/09/17 22:04 Lactic Ac Sepsis Rflx Y 02/26/17 19:53 Plasma Lactic Acid Ezequiel 1.1 mmol/L (0.7-2.0) 02/27/17 17:06 Calcium 8.9 mg/dL (8.4-10.2) 03/07/17 08:04 Phosphorus 3.0 mg/dL (2.5-4.5) 03/07/17 08:04 Magnesium 1.9 mg/dL (1.6-2.3) 03/07/17 08:04 Total Bilirubin 0.7 mg/dL (0.2-1.3) 03/07/17 08:04 AST 26 U/L (17-59) 03/07/17 08:04 ALT 49 U/L (21-72) 03/07/17 08:04 Alkaline Phosphatase 79 U/L (38-126) 03/07/17 08:04 Total Creatine Kinase 39 U/L (55-170) L 02/26/17 19:05 CK-MB (CK-2) 0.6 ng/mL (0.0-2.4) 02/26/17 19:05 CK-MB (CK-2) Rel Index 1.5 02/26/17 19:05 Troponin I 0.210 ng/mL (0.000-0.034) H* 02/26/17 19:05 NT-Pro-B Natriuret Pep [id number] pg/mL 02/26/17 19:05 Total Protein 5.3 g/dL (6.3-8.2) L 03/07/17 08:04 Albumin 2.8 g/dL (3.5-5.0) L 03/07/17 08:04 Urine Color Yellow 02/26/17 22:35 Urine Appearance Turbid (Clear) 02/26/17 22:35 Urine pH 5.5 (5.0-8.0) 02/26/17 22:35 Ur Specific Waldo 1.015 (1.001-1.035) 02/26/17 22:35 Urine Protein 2+ (Negative) H 02/26/17 22:35 Urine Glucose (UA) Negative (Negative) 02/26/17 22:35 Urine Ketones Negative (Negative) 02/26/17 22:35 Urine Blood Moderate (Negative) H 02/26/17 22:35 Urine Nitrite Negative (Negative) 02/26/17 22:35 Urine Bilirubin Negative (Negative) 02/26/17 22:35 Urine Urobilinogen <2.0 mg/dL (<2.0) 02/26/17 22:35 Ur Leukocyte Esterase Large (Negative) H 02/26/17 22:35 Urine RBC 19 /hpf (0-5) H 02/26/17 22:35 Urine WBC >182 /hpf (0-5) H 02/26/17 22:35 Urine WBC Clumps Occasional /hpf (None) H 02/26/17 22:35 Ur Squamous Epith Cells 1 /hpf (0-4) 02/26/17 22:35 Urine Bacteria Many /hpf (None) H 02/26/17 22:35 Hyaline Casts 4 /lpf (0-2) H 02/26/17 22:35 Granular Casts 6 /lpf (0) 02/26/17 22:35 Gastric Occult Blood Positive (Negative) 02/26/17 21:59 Random Vancomycin 7.2 ug/mL 03/01/17 04:30 C. difficile (EIA) Intrp Negative (Negative) 03/04/17 15:00 Microbiology 03/07/17 18:15 Catheter Tip Catheter Tip Culture - Final Staphylococcus epidermidis 02/28/17 10:50 Blood Blood Culture - Final No Growth after 144 hours 02/27/17 23:22 Sputum Gram Stain - Final 02/27/17 23:22 Sputum Sputum Culture - Final Demi albicans Demi glabrata 02/27/17 12:01 Blood Blood Culture Gram Stain - Final 02/27/17 12:01 Blood Blood Culture - Final Escherichia coli 02/26/17 22:35 Urine,Voided Urine Culture - Final Escherichia coli 02/26/17 19:05 Blood Blood Culture Gram Stain - Final 02/26/17 19:05 Blood Blood Culture - Final Escherichia coli 02/26/17 19:05 Blood Blood Culture Gram Stain - Final 02/26/17 19:05 Blood Blood Culture - Final Escherichia coli 02/27/17 12:01 Blood Blood Culture - Final 02/26/17 19:05 Blood Blood Culture - Final 02/26/17 19:05 Blood Blood Culture - Final Assessment and Plan (1) Septic shock Narrative/Plan: 71-year-old male presents to hospital with increasing weakness. Shortly after admission became profoundly more ill. He became hypotensive and developed respiratory failure. He required intubation and mechanical ventilation. He remains ventilated at this time. Concerns underlying pneumonia as etiology of his current gram-negative sepsis. Follow cultures are in process and await the final identification. Fortunately there is been some improvement in that his leukocytosis is improved from 28 to 20.Also has had less vasopressor therapy needs. He however does have a acute renal failure his creatinine is at 3.58 and it was 1.04 during his last stay. Antibiotic therapy continues. With gram negatives only being isolated vancomycin is discontinued. Await final culture to determine final course of antibiotic therapy. Follow blood cultures requested given the multiple positive so far. Patient did have a VQ scan performed at admission that was a low probability of pulmonary embolism. However right lower lobe pneumonia is noted. The blood cultures reveal evidence of E. coli ESBL. Thus antibiotic therapy was altered to ertapenem. Follow up blood cultures remain negative Patient is improving. Needs 11 further days of intravenous antibiotic therapy for the ESBL sepsis. PICC line requested. Status: Acute (2) Pneumonia Status: Acute
[2017-03-10] MEDS: methylPREDNISolone SOD SUCCI 40 MG/ML 1 ML VIAL IV SCH ×3 (00:04→13:12)
[2017-03-10 07:23] LABS: Glucose,Whole Blood 108 mg/dL (75-99)
[2017-03-10] MEDS: INSULIN LISPRO (humaLOG) 300 UNIT/3 ML VIAL SQ SCH ×2 (07:54→13:10)
[2017-03-10] MEDS: FUROSEMIDE 40 MG TAB PO SCH (07:58)
[2017-03-10] MEDS: PANTOPRAZOLE 40 MG TABLET PO SCH (07:58)
[2017-03-10] MEDS: ERTAPENEM 1 GM in SODIUM CHLORIDE 0.9% 50 ML IVPB SCH (07:59)
[2017-03-10] MEDS: NYSTATIN 100,000 UNIT/GM POWD 15 GM TOPICAL SCH (07:59)
[2017-03-10 08:23] LABS: Anion Gap 4 mmol/L; Blood Urea Nitrogen 33 mg/dL (9-20); Calcium 8.4 mg/dL (8.4-10.2); Carbon Dioxide 33 mmol/L (22-30); Chloride 100 mmol/L (98-107); Glucose 93 mg/dL (74-99); Non-African American GFR(MDRD) >60 (>60 ml/min/1.73 sqM); Potassium 4.1 mmol/L (3.5-5.1); Sodium 137 mmol/L (137-145)
[2017-03-10] MEDS ORDERED: IV FLUID CONTINUATION 400 ML IV ONE (09:19)
[2017-03-10] MEDS: IPRATROPIUM-ALBUTEROL 3 ML NEB INHALATION SCH ×3 (09:20→15:16)
[2017-03-10] MEDS ORDERED: LIDOCAINE 2% INJ 20 MG/ML SQ ONE (09:23)
--- NOTE | 2017-03-10 10:38 | IR ---
EXAMINATION TYPE: IR cvc insert >=5 years DATE OF EXAM: 03/10/2017 COMPARISON: None CLINICAL HISTORY: Infection Needs long-term intravenous access for antibiotics. PROCEDURE: After informed consent, the skin overlying the left basilic vein was localized with ultrasound and no heather to be compressible and patent. An ultrasound image was obtained and submitted on the patient's c butler. The overlying skin was prepped and draped and Lidocaine was used for local anesthesia. A skin johan was made with a scalpel. Access was gained to the vein under ultrasound guidance with a 21 gau ge needle and a 0.018 inch wire was advanced. Access site was dilated with Peel-Away sheath and cath eter tailored to the appropriate length and advanced such that the distal tip is at the cavoatrial ju nction. Spot image was obtained verifying placement. Catheter was fixed to the skin with suture and a sterile dressing was placed following hemostasis. Catheter was aspirated and flushed with saline. Patient was discharged in stable condition without complication. Maximal barrier technique is utili zed. Ultrasound image is documented on the chart. Ultrasound used with sterile technique. Fluoro time and fluoroscopic images submitted to document procedure: 192 intraoperative C-arm images, 1.1 minutes fluoroscopy time IMPRESSION: STATUS POST ULTRASOUND AND FLUOROSCOPIC GUIDED PICC LINE PLACEMENT, READY FOR USE. THIS PROCEDURE WAS PERFORMED BY THE UNDERSIGNED.
--- NOTE | 2017-03-10 12:13 | P.PN ---
Subjective This is a 71-year-old patient with a history of E. coli urinary tract infection/ septic shock. The patient was adequately resuscitated with IV fluids and antibiotics. He was on pressors but his been weaned off. The patient has a history of vomiting extended spectrum beta-lactamase producing E. coli. Also the episode of acute respiratory failure requiring intubation and mechanical ventilation. He has a history of chronic right-sided pleural effusion which is small to moderate in size. In addition the patient has history of obesity acute kidney injury chronic psychiatric conditions COPD and hypertension. The patient also has a history of hyperlipidemia and chronic tobacco use. The patient is seen again today 03/10/2017 in follow-up on the regular medical floor. He is awake and alert in no acute distress. He is sitting up in the chair at the bedside. He has no pulmonary complaints. He is maintaining good O2 saturations in the 90s on room air. He's been hemodynamically stable. Afebrile. Objective - Vital Signs Vital signs: Vital Signs Temp 96.9 F L 03/10/17 07:00 Pulse 84 03/10/17 11:31 Resp 18 03/10/17 08:00 BP 117/61 03/10/17 07:00 Pulse Ox 94 L 03/10/17 07:00 Intake & Output 03/09/17 03/10/17 03/10/17 18:59 06:59 18:59 Intake Total 600 236 Output Total 3 3 Balance -3 600 233 Weight 103.5 kg 101.5 kg 101.5 kg Intake: Oral 600 236 Output: Stool 3 3 Other: Voiding Method Incontinent Incontinent Incontinent # Voids 3 3 # Bowel Movements 0 0 ABP, PAP, CO, CI - Last Documented Arterial Blood Pressure 145/66 - Exam No acute distress, oriented 3. HEENT examination is grossly unremarkable. Mucous membranes are moist. No oral lesions. Neck supple. Full range of motion. No adenopathy thyromegaly or neck vein distention. Cardiovascular examination reveals regular rhythm rate. S1-S2 normal. No S3- S4 or murmur. Lungs reveal mostly clear breath sounds. A few scattered mild rhonchi. No crackles or wheezes. Breath sounds are equal bilaterally. Abdomen soft bowel sounds are heard. No so masses or tenderness. Extremities are intact. No cyanosis clubbing or edema. Skin without rash. Neurologic examination is nonfocal. - Labs CBC & Chem 7: 03/08/17 08:25 03/10/17 07:31 Labs: Abnormal Lab Results - Last 24 Hours (Table) 03/09/17 03/09/17 03/09/17 Range/Units 12:24 16:56 22:04 Carbon Dioxide (22-30) mmol/L BUN (9-20) mg/dL POC Glucose (mg/dL) 111 H 119 H 168 H (75-99) mg/dL 03/10/17 03/10/17 Range/Units 06:49 07:31 Carbon Dioxide 33 H (22-30) mmol/L BUN 33 H (9-20) mg/dL POC Glucose (mg/dL) 108 H (75-99) mg/dL Microbiology - Last 24 Hours (Table) 03/07/17 18:15 Catheter Tip Culture - Final Catheter Tip Staphylococcus epidermidis Assessment and Plan Plan: 1 septic shock secondary to a E. coli urinary tract infection. The patient has been adequately resuscitated with IV fluids. The patient's blood pressure is normalized and currently is off pressors. It is an ESBL producing organism. Patient is already on ertapenem. 2 shock secondary to above. This is septic shock. 3 E. coli /ESBL producing organism sepsis secondary to a urinary tract infection 4 acute respiratory failure secondary to above. Currently intubated on mechanical ventilator. The patient is broken spastic and wheezy on today's evaluation. He'll be started on DuoNeb nebulized treatments and steroids. 5 chronic right-sided pleural effusion small to moderate in size, patient will have ultrasound today, if the fluid is large enough and freely moving, may consider thoracentesis. 6 Obesity 7 acute kidney injury, improving 8 chronic psychiatric disorder and the patient has been maintained on multiple psychotropic medication including Abilify, trazodone, Cogentin and Lamictal on outpatient basis. He has underlying PTSD/bipolar disorder/depression 9 COPD 10 longterm resident 11 hypertension 12 hyperlipidemia 13 chronic smoker 14 preserved LV function based on recent echocardiogram with an ejection fraction of 40% Plan: The patient was seen and evaluated by Dr. Corcoran. He is stable from the pulmonary and critical care standpoint. He did receive a PICC line today. The plan is for 10 more days of IV antibiotics in the form of ertapenem secondary to the ESBL sepsis. We'll continue to follow.
[2017-03-10 12:25] LABS: Glucose,Whole Blood 111 mg/dL (75-99)
--- NOTE | 2017-03-10 13:14 | P.DS ---
Providers Date of admission: 02/27/17 00:04 Expected date of discharge: 03/10/17 Attending physician: John Wagner Consults: 02/27/17 11:42 Consult Physician Routine Consulting Provider: Norman Gallardo Consult Reason/Comments: PNEUMONIA/SEPSIS Do you want consulting provider notified?: Yes 02/27/17 17:28 Consult Physician Routine Consulting Provider: Simone Pearce Consult Reason/Comments: sepsis Do you want consulting provider notified?: Yes 02/28/17 16:54 Consult Physician Routine Consulting Provider: Zach Mann Consult Reason/Comments: arf Do you want consulting provider notified?: Yes Primary care physician: Cassidy Daugherty Hospital Course: Final Diagnoses: 1. Severe sepsis , septic shock secondary to bacteremia and UTI with ESBL present on admission. 2. [ Change in mental status, acute on chronic metabolic encephalopathy]. 3. [ Acute hypoxic respiratory failure secondary to sepsis, possible pneumonia in a patient with history of recent treated pneumonia, status post mechanical ventilation]. 4. [Acute renal failure, possibly due to prerenal factors with possible chronic kidney disease, stage III 5. [ Hypernatremia, resolved Hospital course: This a 71-year-old gentleman admitted with severe sepsis secondary to ESBL bacteremia,UTI, acute on chronic metabolic encephalopathy, acute hypoxic respiratory failure and acute renal failure, hypernatremia and multiple other medical issues. Evaluated by nephrology, pulmonary, and infectious disease. Status post mechanical ventilation. Chest x-ray reporting persistent airspace consolidation right lower lobe with associated pleural effusions without failure. Bilateral thoracentesis with only left sided able to be drained. Significant clinical improvement. Patient has been cleared by consults for discharge. Patient is being discharged to subacute [facility] rehab in a stable condition with guarded prognosis. Microbiology 03/07/17 18:15 Catheter Tip Catheter Tip Culture - Final Staphylococcus epidermidis 02/28/17 10:50 Blood Blood Culture - Final No Growth after 144 hours 02/27/17 23:22 Sputum Gram Stain - Final 02/27/17 23:22 Sputum Sputum Culture - Final Demi albicans Demi glabrata 02/27/17 12:01 Blood Blood Culture Gram Stain - Final 02/27/17 12:01 Blood Blood Culture - Final Escherichia coli 02/26/17 22:35 Urine,Voided Urine Culture - Final Escherichia coli 02/26/17 19:05 Blood Blood Culture Gram Stain - Final 02/26/17 19:05 Blood Blood Culture - Final Escherichia coli 02/26/17 19:05 Blood Blood Culture Gram Stain - Final 02/26/17 19:05 Blood Blood Culture - Final Escherichia coli 02/27/17 12:01 Blood Blood Culture - Final 02/26/17 19:05 Blood Blood Culture - Final 02/26/17 19:05 Blood Blood Culture - Final The impression and plan of care has been dictated as directed as a scribe. : I performed a H&P examination of this patient and discussed the same with the dictator. I agree with the dictator's note. Any additional findings/opinions/ etc. will be noted. Patient Condition at Discharge: Stable Plan - Discharge Summary New Discharge Prescriptions: New Ertapenem [INVanz] 1 gm IVPB Q24H #11 bag Nystatin 100,000 Unit/gm Powd [Mycostatin Powder] 1 applic TOPICAL BID dose Pantoprazole [Protonix] 40 mg PO AC-BRKFST tab predniSONE 10 mg PO DIRECTED #30 tab QUEtiapine [SEROquel] 50 mg PO HS #1 tab Continue Aspirin EC [Ecotrin Low Dose] 81 mg PO DAILY traZODone HCL 100 mg PO HS Atorvastatin [Lipitor] 20 mg PO HS lamoTRIgine [LaMICtal] 100 mg PO BID Furosemide [Lasix] 40 mg PO DAILY Ferrous Sulfate [Feosol] 325 mg PO TID Changed Ipratropium-Albuterol Nebulize [Duoneb 0.5 mg-3 mg/3 ml Soln] 3 ml INHALATION RT-QID #0 neb Discontinued Naproxen [Naprosyn] 500 mg PO BID Acetaminophen [Tylenol] 500 mg PO Q6H PRN PRN Reason: Pain Lisinopril [Zestril] 10 mg PO DAILY Benztropine Mesylate [Cogentin] 2 mg PO HS Diazepam [Valium] 5 mg PO TID #30 Discharge Medication List Aspirin EC [Ecotrin Low Dose] 81 mg PO DAILY 01/15/17 [History] Atorvastatin [Lipitor] 20 mg PO HS 01/15/17 [History] Furosemide [Lasix] 40 mg PO DAILY 01/15/17 [History] lamoTRIgine [LaMICtal] 100 mg PO BID 01/15/17 [History] traZODone HCL 100 mg PO HS 01/15/17 [History] Ferrous Sulfate [Feosol] 325 mg PO TID 02/26/17 [History] Ertapenem [INVanz] 1 gm IVPB Q24H #11 bag 03/10/17 [Rx] Ipratropium-Albuterol Nebulize [Duoneb 0.5 mg-3 mg/3 ml Soln] 3 ml INHALATION RT -QID #0 neb 03/10/17 [Rx] Nystatin 100,000 Unit/gm Powd [Mycostatin Powder] 1 applic TOPICAL BID dose [Rx] Pantoprazole [Protonix] 40 mg PO AC-BRKFST tab 03/10/17 [Rx] QUEtiapine [SEROquel] 50 mg PO HS #1 tab 03/10/17 [Rx] predniSONE 10 mg PO DIRECTED #30 tab 03/10/17 [Rx] Follow up Appointment(s)/Referral(s): Norman Gallardo MD [STAFF PHYSICIAN] - 2 Weeks Cassidy Daugherty MD [Primary Care Provider] - 3 Days (After discharge from [facility] rehab) Reddy Freitas DO [STAFF PHYSICIAN] - 3 Days (While at [facility]) Ambulatory/Diagnostic Orders: Complete Blood Count w/diff [LAB.AMB] Location: Determined By Patient Comprehensive Metabolic Panel [LAB.AMB] Location: Determined By Patient Activity/Diet/Wound Care/Special Instructions: [facility] antibiotics as per infectious disease Diet mechanical dysphagia II, one-to-one supervision, strict aspiration precautions Activity: As tolerated CBC, BMP in 3 days
[2017-03-10 14:48] VITALS: BP 117/73; RESP 20; TEMP 97.4
[2017-03-10 15:18] VITALS: PULSE 96
--- NOTE | 2017-03-11 15:07 | CDI ---
In responding to this query, please exercise your independent professional judgment. The [facility] Coding Staff and Clinical Documentation Specialists appreciate your assistance in clarifying documentation, maintaining compliance with coding guidelines, accurately documenting patients condition and capturing severity of illness. The fact that a question is asked does not imply that any particular answer is desired or expected. Communication forms are a method of clarifying documentation and are not made part of the Legal Health Record. Thank you in advance for your clarification. Last Revision, May 2015 Trixie Jameson [address] [place] [address] Documentation Clarification Form Date: 03/11/2017 2:41:00 PM From: Minna Liana Admit Date: 02/27/2017 12:04:00 AM Patient Name: Horacio Torres Visit Number: [id number] Discharge Date: Dr. Asher Wagner/Honey GARCIA A pressure ulcer was documented in the ongoing Nursing notes and dietary assessment beginning on 02/27/17. History/Risk Factors: PTSD, Schizopherenia paranoid type, COPD, Chronic hypercapnic respiratory failure, Hypertension Clinical Indicators: Present with complaining of nausea, feeling weak Location: Right Buttock Wound description: Pressure injury staging: Stage II Drainage amount: None Treatment: Dressing change per protocol Monitor Protein supplements TID Elements for accurate and compliant documentation of an ulcer: * The location/laterality of the ulcer * Etiology (decubitus/pressure, diabetic, PVD) * Stage I-IV, Unstageable, Suspected Deep Tissue Injury (To the deepest stage) * If the ulcer was present at admission (POA) or occurred after admission In your professional opinion, can you please clarify the diagnosis, location, laterality and whether present on admission (POA): Stage 1 Pressure/Decubitus Ulcer (intact skin, non-blanching redness of local area) Stage 2 Pressure/Decubitus Ulcer (Partial thickness, loss of dermis, pink wound bed) Stage 3 Pressure/Decubitus Ulcer (Full thickness tissue loss) Stage 4 Pressure/Decubitus Ulcer (Full thickness tissue loss with exposed bone, tendon, or muscle. May have slough or eschar present) Unstageable Unable to determine Other condition, please specify * Please indicate cause (if known). Please document in your progress notes and discharge summary in order to capture severity of illness and risk of mortality. Include clinical findings that support your diagnosis. FYI: Press F11 to launch patient chart. OMAR
--- NOTE | 2017-03-17 11:36 | CDI ---
In responding to this query, please exercise your independent professional judgment. The [facility] Coding Staff and Clinical Documentation Specialists appreciate your assistance in clarifying documentation, maintaining compliance with coding guidelines, accurately documenting patients condition and capturing severity of illness. The fact that a question is asked does not imply that any particular answer is desired or expected. Communication forms are a method of clarifying documentation and are not made part of the Legal Health Record. Thank you in advance for your clarification. Last Revision, May 2015 Trixie Jameson [address] [facility] [place] [address] Documentation Clarification Form Date: 03/11/2017 2:41:00 PM From: Minna Gaines Admit Date: 02/27/2017 12:04:00 AM Patient Name: Horacio Torres Visit Number: [id number] Discharge Date: Dr. Asher Wagner/Honey GARCIA A pressure ulcer was documented in the ongoing Nursing notes and dietary assessment beginning on 02/27/17. History/Risk Factors: PTSD, Schizopherenia paranoid type, COPD, Chronic hypercapnic respiratory failure, Hypertension Clinical Indicators: Present with complaining of nausea, feeling weak Location: Right Buttock Wound description: Pressure injury staging: Stage II Drainage amount: None Treatment: Dressing change per protocol Monitor Protein supplements TID Elements for accurate and compliant documentation of an ulcer: * The location/laterality of the ulcer * Etiology (decubitus/pressure, diabetic, PVD) * Stage I-IV, Unstageable, Suspected Deep Tissue Injury (To the deepest stage) * If the ulcer was present at admission (POA) or occurred after admission In your professional opinion, can you please clarify the diagnosis, location, laterality and whether present on admission (POA): Stage 1 Pressure/Decubitus Ulcer (intact skin, non-blanching redness of local area) Stage 2 Pressure/Decubitus Ulcer (Partial thickness, loss of dermis, pink wound bed) Stage 3 Pressure/Decubitus Ulcer (Full thickness tissue loss) Stage 4 Pressure/Decubitus Ulcer (Full thickness tissue loss with exposed bone, tendon, or muscle. May have slough or eschar present) Unstageable Unable to determine Other condition, please specify *Please indicate cause (if known). Please document as an addendum to the discharge summary in order to capture severity of illness and risk of mortality. Include clinical findings that support your diagnosis. FYI: Press F11 to launch patient chart. OMAR
== END 2017-03-10 16:17 | DRG 870 ==
LOC: EC 18:35 → 6SEL 02-27 00:04 → 6ICU 02-27 14:18 → 4MS4W 03-06 21:02
PROVIDERS: ADMIT Internal Medicine; ATTEND Internal Medicine
PROC: 5A1955Z Respiratory Ventilation, Greater than 96 Consecutive Hours (ICD-10-PCS; principal; 2017-02-27)
PROC: 03HY32Z Insertion of Monitoring Device into Upper Artery, Percutaneous Approach (ICD-10-PCS; 2017-02-27)
PROC: 0T9B70Z Drainage of Bladder with Drainage Device, Via Natural or Artificial Opening (ICD-10-PCS; 2017-02-27)
PROC: 0DH67UZ Insertion of Feeding Device into Stomach, Via Natural or Artificial Opening (ICD-10-PCS; 2017-02-27)
PROC: 0BH17EZ Insertion of Endotracheal Airway into Trachea, Via Natural or Artificial Opening (ICD-10-PCS; 2017-02-27)
PROC: 05H633Z Insertion of Infusion Device into Left Subclavian Vein, Percutaneous Approach (ICD-10-PCS; 2017-02-28)
PROC: 3E0G76Z Introduction of Nutritional Substance into Upper GI, Via Natural or Artificial Opening (ICD-10-PCS; 2017-03-01)
PROC: 02HV33Z Insertion of Infusion Device into Superior Vena Cava, Percutaneous Approach (ICD-10-PCS; 2017-03-10)
DX: A41.51 Sepsis due to Escherichia coli [E. coli] (principal); N17.0 Acute kidney failure with tubular necrosis; J96.21 Acute and chronic respiratory failure with hypoxia; R65.21 Severe sepsis with septic shock; J18.9 Pneumonia, unspecified organism; G93.41 Metabolic encephalopathy; J90 Pleural effusion, not elsewhere classified; J44.0 Chronic obstructive pulmonary disease with (acute) lower respiratory infection; E87.0 Hyperosmolality and hypernatremia; J96.22 Acute and chronic respiratory failure with hypercapnia; E87.2 Acidosis; N39.0 Urinary tract infection, site not specified; F20.0 Paranoid schizophrenia; I95.9 Hypotension, unspecified; I27.2 Other secondary pulmonary hypertension; I12.9 Hypertensive chronic kidney disease with stage 1 through stage 4 chronic kidney disease, or unspecified chronic kidney disease; N18.3 Chronic kidney disease, stage 3 (moderate); F31.9 Bipolar disorder, unspecified; F43.10 Post-traumatic stress disorder, unspecified; L89.312 Pressure ulcer of right buttock, stage 2; E78.5 Hyperlipidemia, unspecified; E66.9 Obesity, unspecified; R00.0 Tachycardia, unspecified; I49.3 Ventricular premature depolarization; R11.2 Nausea with vomiting, unspecified; R19.7 Diarrhea, unspecified; R74.8 Abnormal levels of other serum enzymes; R32 Unspecified urinary incontinence; I49.1 Atrial premature depolarization; R53.1 Weakness; R61 Generalized hyperhidrosis; F17.200 Nicotine dependence, unspecified, uncomplicated; Z87.01 Personal history of pneumonia (recurrent); Z79.899 Other long term (current) drug therapy; Z79.82 Long term (current) use of aspirin; Z79.1 Long term (current) use of non-steroidal anti-inflammatories (NSAID); Z71.3 Dietary counseling and surveillance; Z16.12 Extended spectrum beta lactamase (ESBL) resistance
CPT/HCPCS: 36415; 36569; 36600; 71010; 71020; 76604; 76700; 76857; 76937; 77001; 78582; 80048; 80053; 80202; 81001; 82271; 82550; 82553; 82805; 83605; 83735; 83880; 84100; 84132; 84484; 85025; 85379; 85610; 85730; 87040; 87070; 87077; 87086; 87186; 87205; 87324; 93005; 94002; 94003; 94640; 96361; 96365; 96367; 96375; 99285

== ENCOUNTER 2017-03-12 12:24 | Inpatient (IN) | payer MEDICARE, OTHER ==
[2017-03-12] MEDS ORDERED: SODIUM CHLORIDE 0.9% 500 ML IV STA (12:35)
[2017-03-12 13:20] LABS: Anisocytosis Slight; Basophils # (A) 0.1 k/uL (0-0.2); Basophils % (A) 0 %; CH 25.8; CHCM 31.2; Eosinophils # (A) 0.1 k/uL (0-0.7); Eosinophils % (A) 0 %; HCT 23.7 % (39.0-53.0); HDW 3.07; Hypochromasia Moderate; Luc # (Auto) 0.14; Luc % (Auto) 1; Lymphocytes # (A) 1.2 k/uL (1.0-4.8); Lymphocytes % (A) 5 %; MCHC 30.3 g/dL (31.0-37.0); MCV 82.6 fL (80.0-100.0); Mean Platelet Volume 8.7; Monocytes # (A) 0.6 k/uL (0-1.0); Monocytes % (A) 3 %; Neutrophils # (A) 21.4 k/uL (1.3-7.7); Neutrophils % (A) 91 %; RBC 2.87 m/uL (4.30-5.90); RDW 18.4 % (11.5-15.5); WBC 23.5 k/uL (3.8-10.6); WBC (Perox) 22.81
[2017-03-12 13:30] LABS: ALT 51 U/L (21-72); AST 21 U/L (17-59); Alkaline Phosphatase 57 U/L (38-126); Anion Gap 4 mmol/L; Blood Urea Nitrogen 59 mg/dL (9-20); Calcium 7.8 mg/dL (8.4-10.2); Carbon Dioxide 28 mmol/L (22-30); Chloride 104 mmol/L (98-107); Glucose 103 mg/dL (74-99); Magnesium 1.8 mg/dL (1.6-2.3); Non-African American GFR(MDRD) >60 (>60 ml/min/1.73 sqM); Potassium 4.5 mmol/L (3.5-5.1); Sodium 136 mmol/L (137-145); Total Bilirubin 0.6 mg/dL (0.2-1.3); Total Protein 4.4 g/dL (6.3-8.2)
[2017-03-12 13:32] LABS: INR 1.3 (<1.2); Prothrombin Time 12.4 sec (9.0-12.0)
[2017-03-12 13:40] LABS: HGB 7.2 gm/dL (13.0-17.5)
[2017-03-12 13:44] LABS: Creatine Kinase <20 U/L (55-170)
[2017-03-12 13:47] LABS: Partial Thromboplastin Time 20.9 sec (22.0-30.0)
--- NOTE | 2017-03-12 13:50 | XR ---
EXAMINATION TYPE: XR abdomen acute w cxr DATE OF EXAM: 03/12/2017 COMPARISON: NONE HISTORY: Pain TECHNIQUE: Single view of the chest and 2 views of the abdomen are submitted. FINDINGS: Single view of the chest fails demonstrate right basilar pleural-parenchymal opacity which may reflec t a combination of infiltrate, atelectasis and pleural effusion. There is no evidence for pneumoperitoneum. The bowel gas pattern is unremarkable as there is air throughout nondilated small and large bowel. No sizeable air fluid levels.No mass effects are seen. No unusual calcifications. IMPRESSION: 1. Unremarkable bowel gas pattern. 2.right basilar pleural-parenchymal opacity which may reflect a combination of infiltrate, atelectasi s and pleural effusion.
[2017-03-12] MEDS ORDERED: PANTOPRAZOLE 40 MG/10 ML VIAL IVP ONE (13:53)
[2017-03-12 13:55] LABS: Creatine Kinase MB 1.4 ng/mL (0.0-2.4)
[2017-03-12 13:59] LABS: Troponin I 0.053 ng/mL (0.000-0.034)
[2017-03-12] MEDS ORDERED: ONDANSETRON 4 MG/2 ML VIAL IVP PRN (15:13)
[2017-03-12] MEDS ORDERED: NALOXONE 0.4 MG/ML 1 ML VIAL IV PRN (15:13)
[2017-03-12] MEDS ORDERED: CALCIUM GLUCONATE 1,000 MG in SODIUM CHLORIDE 0.9% 100 ML IVPB ONE (15:22)
--- NOTE | 2017-03-12 15:34 | ED ---
General Adult HPI - General Chief complaint: GI Bleed Stated complaint: Lower GI Time Seen by Provider: 03/12/17 12:26 Source: patient, EMS, RN notes reviewed, old records reviewed Mode of arrival: EMS - History of Present Illness Initial comments: 71-year-old male presents for evaluation of nausea vomiting and diarrhea. Patient is coming from [facility]. According to the patient 2 episodes of dark tarry stool. He also complaints cough and congestion coming does have history of chronic COPD. Patient is not known to take any blood thinners. He is on prednisone for COPD exacerbation. Patient was transferred with chief complaint of dark tarry stools. He was hypotensive at the time of transfer at 88/49, heart rate 122. Patient denies chest pain or shortness of breath. Denies abdominal pain. Does state he has had a mild cough. - Related Data Home Medications Medication Instructions Recorded Confirmed Aspirin EC [Ecotrin Low Dose] 81 mg PO DAILY 01/15/17 03/12/17 Atorvastatin [Lipitor] 20 mg PO HS 01/15/17 03/12/17 lamoTRIgine [LaMICtal] 100 mg PO BID 01/15/17 03/12/17 traZODone HCL 100 mg PO HS 01/15/17 03/12/17 Ferrous Sulfate [Feosol] 325 mg PO TID 02/26/17 03/12/17 Cranberry-Vit C Liquid 30 ml PO BID 03/12/17 03/12/17 Pantoprazole [Protonix] 40 mg PO DAILY 03/12/17 03/12/17 predniSONE See Taper PO DIRECTED 03/12/17 03/12/17 Previous Rx's Medication Instructions Recorded Ertapenem [INVanz] 1 gm IVPB Q24H #11 bag 03/10/17 Ipratropium-Albuterol Nebulize 3 ml INHALATION RT-QID #0 neb 03/10/17 [Duoneb 0.5 mg-3 mg/3 ml Soln] Nystatin 100,000 Unit/gm Powd 1 applic TOPICAL BID dose 03/10/17 [Mycostatin Powder] QUEtiapine [SEROquel] 50 mg PO HS #1 tab 03/10/17 Allergies Allergy/AdvReac Type Severity Reaction Status Date / Time No Known Allergies Allergy Verified 03/12/17 14:24 Review of Systems ROS Statement: Those systems with pertinent positive or pertinent negative responses have been documented in the HPI. ROS Other: All systems not noted in ROS Statement are negative. Past Medical History Past Medical History: No Reported History Additional Past Medical History / Comment(s): Obesity, penitentiary resident, depression, PTSD, schizophrenia paranoid type, COPD, chronic hypoxic and hypercapnic respiratory failure, hyperlipidemia, hypertension, recent hospitalization for acute respiratory failure requiring intubation mechanical ventilation History of Any Multi-Drug Resistant Organisms: None Reported, ESBL Date of last positivie culture/infection: 02/26/17 MDRO Source:: BLOOD ESBL E.COLI Past Surgical History: No Surgical Hx Reported Additional Past Surgical History / Comment(s): patient refused to disclose Past Anesthesia/Blood Transfusion Reactions: No Reported Reaction Past Psychological History: PTSD Smoking Status: Former smoker Past Alcohol Use History: None Reported Past Drug Use History: None Reported - Past Family History Father Family Medical History: Unable to Obtain Mother Family Medical History: Unable to Obtain General Exam General appearance: alert, in no apparent distress Head exam: Present: atraumatic, normocephalic Eye exam: Present: normal appearance, PERRL, EOMI ENT exam: Present: normal exam Neck exam: Present: normal inspection. Absent: tenderness, meningismus Respiratory exam: Present: normal lung sounds bilaterally. Absent: respiratory distress Cardiovascular Exam: Present: normal rhythm, tachycardia GI/Abdominal exam: Present: soft. Absent: distended, tenderness, guarding Rectal exam: Present: normal inspection, normal rectal tone, heme (+) stool, black stool Extremities exam: Present: normal inspection, full ROM, normal capillary refill. Absent: pedal edema Neurological exam: Present: alert, oriented X3 Psychiatric exam: Present: normal affect, agitated Skin exam: Present: warm, dry, intact. Absent: cyanosis, diaphoretic Course Vital Signs 03/12/17 03/12/17 03/12/17 12:31 13:56 14:46 Temperature 97.1 F L 97.9 F Pulse Rate 122 H 110 H 108 H Respiratory 18 18 20 Rate Blood Pressure 98/54 122/54 114/58 O2 Sat by Pulse 91 L 99 100 Oximetry 03/12/17 03/12/17 03/12/17 14:53 15:03 15:15 Temperature 96.9 F L 98.5 F Pulse Rate 107 H 112 H 109 H Respiratory 20 18 19 Rate Blood Pressure 116/57 117/67 115/56 O2 Sat by Pulse 100 99 100 Oximetry - Reevaluation(s) Reevaluation #1: 03/12/17 15:26 Patient's blood pressure does improve with minimal fluid, he is given 2 units of packed red blood cells for hypotension and tachycardia at the time of transport. Medical Decision Making - Medical Decision Making 71-year-old presenting with several episodes of dark tarry stool. Patient is able to give limited history, there is no known history of blood thinners or anticoagulation, no NSAID use no, there is a history of recent prednisone administration for COPD exacerbation. On examination patient does have low normal blood pressure at the time of presentation, this improves with minimal hydration. He is pale. Rectal exam reveals melanotic stool. White blood cell count is 23,000, this is stable from discharge and the patient is on steroids. Hemoglobin is 7.2 today from recent 12.7 on March 08. INR is mildly elevated at 1.3. Troponin is 0.053 this is down trending from February 26 when troponin was 0.21. Patient denies chest pain. Stool sample is occult hemoglobin positive. Patient is given 80 mg of Protonix and 2 units of packed RBCs. His vital signs remained stable in the emergency department. Case is discussed with Dr. Carrillo. Patient will be kept nothing by mouth. He has a left upper extremity PICC line in place. Diagnosis: acute blood loss anemia, suspect upper GI bleed - Lab Data Result diagrams: 03/12/17 13:00 03/12/17 13:00 Lab Results 03/12/17 03/12/17 03/12/17 Range/Units 12:49 13:00 13:00 WBC 23.5 H (3.8-10.6) k/uL RBC 2.87 L (4.30-5.90) m/uL Hgb 7.2 L D (13.0-17.5) gm/dL Hct 23.7 L (39.0-53.0) % MCV 82.6 (80.0-100.0) fL MCH 25.0 (25.0-35.0) pg MCHC 30.3 L (31.0-37.0) g/dL RDW 18.4 H (11.5-15.5) % Plt Count 305 (150-450) k/uL Neutrophils % 91 % Lymphocytes % 5 % Monocytes % 3 % Eosinophils % 0 % Basophils % 0 % Neutrophils # 21.4 H (1.3-7.7) k/uL Lymphocytes # 1.2 (1.0-4.8) k/uL Monocytes # 0.6 (0-1.0) k/uL Eosinophils # 0.1 (0-0.7) k/uL Basophils # 0.1 (0-0.2) k/uL Hypochromasia Moderate Anisocytosis Slight PT (9.0-12.0) sec INR (<1.2) APTT (22.0-30.0) sec Sodium (137-145) mmol/L Potassium (3.5-5.1) mmol/L Chloride (98-107) mmol/L Carbon Dioxide (22-30) mmol/L Anion Gap mmol/L BUN (9-20) mg/dL Creatinine (0.66-1.25) mg/dL Est GFR (MDRD) Af Amer (>60 ml/min/1.73 sqM) Est GFR (MDRD) Non-Af (>60 ml/min/1.73 sqM) Glucose (74-99) mg/dL Plasma Lactic Acid Ezequiel (0.7-2.0) mmol/L Calcium (8.4-10.2) mg/dL Magnesium (1.6-2.3) mg/dL Total Bilirubin (0.2-1.3) mg/dL AST (17-59) U/L ALT (21-72) U/L Alkaline Phosphatase (38-126) U/L Total Creatine Kinase <20 L (55-170) U/L CK-MB (CK-2) 1.4 (0.0-2.4) ng/mL CK-MB (CK-2) Rel Index Troponin I 0.053 H* (0.000-0.034) ng/mL Total Protein (6.3-8.2) g/dL Albumin (3.5-5.0) g/dL Lipase (23-300) U/L Stool Occult Blood Positive (Negative) Blood Type Blood Type Confirm Blood Type Recheck Antibody Screen Crossmatch Spec Expiration Date 03/12/17 03/12/17 03/12/17 Range/Units 13:00 13:00 13:00 WBC (3.8-10.6) k/uL RBC (4.30-5.90) m/uL Hgb (13.0-17.5) gm/dL Hct (39.0-53.0) % MCV (80.0-100.0) fL MCH (25.0-35.0) pg MCHC (31.0-37.0) g/dL RDW (11.5-15.5) % Plt Count (150-450) k/uL Neutrophils % % Lymphocytes % % Monocytes % % Eosinophils % % Basophils % % Neutrophils # (1.3-7.7) k/uL Lymphocytes # (1.0-4.8) k/uL Monocytes # (0-1.0) k/uL Eosinophils # (0-0.7) k/uL Basophils # (0-0.2) k/uL Hypochromasia Anisocytosis PT 12.4 H (9.0-12.0) sec INR 1.3 H (<1.2) APTT 20.9 L (22.0-30.0) sec Sodium 136 L (137-145) mmol/L Potassium 4.5 (3.5-5.1) mmol/L Chloride 104 (98-107) mmol/L Carbon Dioxide 28 (22-30) mmol/L Anion Gap 4 mmol/L BUN 59 H (9-20) mg/dL Creatinine 0.88 (0.66-1.25) mg/dL Est GFR (MDRD) Af Amer >60 (>60 ml/min/1.73 sqM) Est GFR (MDRD) Non-Af >60 (>60 ml/min/1.73 sqM) Glucose 103 H (74-99) mg/dL Plasma Lactic Acid Ezequiel 1.0 (0.7-2.0) mmol/L Calcium 7.8 L (8.4-10.2) mg/dL Magnesium 1.8 (1.6-2.3) mg/dL Total Bilirubin 0.6 (0.2-1.3) mg/dL AST 21 (17-59) U/L ALT 51 (21-72) U/L Alkaline Phosphatase 57 (38-126) U/L Total Creatine Kinase (55-170) U/L CK-MB (CK-2) (0.0-2.4) ng/mL CK-MB (CK-2) Rel Index Troponin I (0.000-0.034) ng/mL Total Protein 4.4 L (6.3-8.2) g/dL Albumin 2.2 L (3.5-5.0) g/dL Lipase 278 (23-300) U/L Stool Occult Blood (Negative) Blood Type Blood Type Confirm Blood Type Recheck Antibody Screen Crossmatch Spec Expiration Date 03/12/17 03/12/17 Range/Units 13:00 14:13 WBC (3.8-10.6) k/uL RBC (4.30-5.90) m/uL Hgb (13.0-17.5) gm/dL Hct (39.0-53.0) % MCV (80.0-100.0) fL MCH (25.0-35.0) pg MCHC (31.0-37.0) g/dL RDW (11.5-15.5) % Plt Count (150-450) k/uL Neutrophils % % Lymphocytes % % Monocytes % % Eosinophils % % Basophils % % Neutrophils # (1.3-7.7) k/uL Lymphocytes # (1.0-4.8) k/uL Monocytes # (0-1.0) k/uL Eosinophils # (0-0.7) k/uL Basophils # (0-0.2) k/uL Hypochromasia Anisocytosis PT (9.0-12.0) sec INR (<1.2) APTT (22.0-30.0) sec Sodium (137-145) mmol/L Potassium (3.5-5.1) mmol/L Chloride (98-107) mmol/L Carbon Dioxide (22-30) mmol/L Anion Gap mmol/L BUN (9-20) mg/dL Creatinine (0.66-1.25) mg/dL Est GFR (MDRD) Af Amer (>60 ml/min/1.73 sqM) Est GFR (MDRD) Non-Af (>60 ml/min/1.73 sqM) Glucose (74-99) mg/dL Plasma Lactic Acid Ezequiel (0.7-2.0) mmol/L Calcium (8.4-10.2) mg/dL Magnesium (1.6-2.3) mg/dL Total Bilirubin (0.2-1.3) mg/dL AST (17-59) U/L ALT (21-72) U/L Alkaline Phosphatase (38-126) U/L Total Creatine Kinase (55-170) U/L CK-MB (CK-2) (0.0-2.4) ng/mL CK-MB (CK-2) Rel Index Troponin I (0.000-0.034) ng/mL Total Protein (6.3-8.2) g/dL Albumin (3.5-5.0) g/dL Lipase (23-300) U/L Stool Occult Blood (Negative) Blood Type A Positive Blood Type Confirm A Positive Blood Type Recheck CABO Indicated Antibody Screen NEGATIVE Crossmatch See Detail Spec Expiration Date 03/15/2017 - 2299 Critical Care Time Critical Care Time: Yes Total Critical Care Time: 40 Disposition Clinical Impression: Acute blood loss anemia, GI bleed Disposition[facility] Condition: Stable Referrals: Reddy Freitas DO [Primary Care Provider] - 1-2 days Decision to Admit Reason: Admit from EC Decision Date: 03/12/17 Decision Time: 14:30
[2017-03-12] MEDS: SODIUM CHLORIDE 0.9% 1,000 ML IV SCH (16:02)
[2017-03-12 18:29] LABS: Anisocytosis Slight; CHCM 32.1; HCT 24.8 % (39.0-53.0); HDW 3.93; Hypochromasia Moderate; MCH 27.1 pg (25.0-35.0); MCHC 32.2 g/dL (31.0-37.0); MCV 84.2 fL (80.0-100.0); Mean Platelet Volume 9.5; Poikilocytosis Slight; RBC 2.94 m/uL (4.30-5.90); RDW 18.8 % (11.5-15.5); WBC 19.6 k/uL (3.8-10.6); WBC (Perox) 18.78
[2017-03-12] MEDS ORDERED: ERTAPENEM 1 GM VIAL IVPB SCH (20:15)
[2017-03-12] MEDS ORDERED: predniSONE 10 MG TAB PO SCH (20:15)
[2017-03-12 20:36] LABS: Add Differential Manual Differential
[2017-03-12 20:40] LABS: Band Neutrophils % 1 %; Metamyelocytes % 2 %; Myelocytes % 1 %; Nucleated Red Blood Cells 0 /100 WBC (0-0); Total Cells Counted 200
[2017-03-12 20:41] LABS: Manual Review Performed; Ovalocytes Present
[2017-03-12] MEDS: traZODone HCL 100 MG TAB PO SCH (21:59)
[2017-03-12] MEDS: NYSTATIN 100,000 UNIT/GM POWD 15 GM TOPICAL SCH (21:59)
[2017-03-12] MEDS: QUEtiapine 50 MG TAB PO SCH (21:59)
[2017-03-12] MEDS: lamoTRIgine 100 MG TAB PO SCH (21:59)
[2017-03-12] MEDS: ATORVASTATIN 20 MG TAB PO SCH (21:59)
[2017-03-12] MEDS: PANTOPRAZOLE 40 MG/10 ML VIAL IVP SCH (21:59)
[2017-03-13 06:41] LABS: Anisocytosis Slight; Basophils % (A) 0 %; CHCM 32.6; Eosinophils # (A) 0.3 k/uL (0-0.7); Eosinophils % (A) 2 %; HCT 23.2 % (39.0-53.0); HDW 4.23; HGB 7.7 gm/dL (13.0-17.5); Hypochromasia Slight; Luc # (Auto) 0.17; Luc % (Auto) 1; Lymphocytes % (A) 12 %; MCH 27.4 pg (25.0-35.0); MCHC 33.1 g/dL (31.0-37.0); MCV 82.7 fL (80.0-100.0); Mean Platelet Volume 9.2; Monocytes # (A) 0.7 k/uL (0-1.0); Monocytes % (A) 4 %; Neutrophils # (A) 12.9 k/uL (1.3-7.7); Neutrophils % (A) 81 %; Poikilocytosis Moderate; RDW 18.8 % (11.5-15.5); WBC (Perox) 16.36
[2017-03-13] MEDS: SODIUM CHLORIDE 0.9% 1,000 ML IV SCH ×2 (06:50→17:22)
[2017-03-13] MEDS: FERROUS SULFATE 325 MG TAB PO SCH ×2 (06:58→17:21)
[2017-03-13 07:05] LABS: ALT 38 U/L (21-72); AST 18 U/L (17-59); Alkaline Phosphatase 56 U/L (38-126); Anion Gap 2 mmol/L; Blood Urea Nitrogen 42 mg/dL (9-20); Calcium 7.9 mg/dL (8.4-10.2); Carbon Dioxide 26 mmol/L (22-30); Chloride 107 mmol/L (98-107); Glucose 85 mg/dL (74-99); Non-African American GFR(MDRD) >60 (>60 ml/min/1.73 sqM); Potassium 4.2 mmol/L (3.5-5.1); Sodium 135 mmol/L (137-145)
[2017-03-13] MEDS: IPRATROPIUM-ALBUTEROL 3 ML NEB INHALATION SCH ×4 (08:48→20:10)
[2017-03-13] MEDS: lamoTRIgine 100 MG TAB PO SCH (09:25)
[2017-03-13] MEDS: NYSTATIN 100,000 UNIT/GM POWD 15 GM TOPICAL SCH ×2 (09:25→20:59)
[2017-03-13] MEDS: PANTOPRAZOLE 40 MG/10 ML VIAL IVP SCH ×2 (09:25→21:00)
[2017-03-13] MEDS: ERTAPENEM 1 GM in SODIUM CHLORIDE 0.9% 50 ML IVPB SCH (09:25)
--- NOTE | 2017-03-13 09:41 | P.CONS ---
History of Present Illness - Reason for Consult Consult date: 03/13/17 GI bleed Requesting physician: Asher Wagner - History of Present Illness 71-year-old gentleman recently hospitalized and discharged on 03/10/2017 secondary to sepsis E. coli bacteremia pneumonia acute renal failure. Admitted with reports of dark black colored bowel movements without fever. Consultation requested for GI bleed. Admission hemoglobin 7.2. Previous hemoglobin over the last month ranging between 10-12. MCV 82. Platelet 250. INR 1.3. BUN 59. Creatinine 0.8. Stool occult blood positive. Discharge medications included prednisone, Feosol, and aspirin. Patient denies abdominal pain nausea vomiting fever or chills. He has not seen black or red bowel movements. No history GI bleed. No history of EGD or colonoscopy. Review of Systems Constitutional: Denies fever, chills, sweats, weight gain, or loss. HEENT: Negative for migraines, blurred vision or loss, earaches, drainage, tinnitus, oral mucosal lesions, dysphagia, or odynophagia. Cardiac: Hyperlipidemia. Hypertension. Negative for chest pain, arrhythmias, or palpitation. Respiratory: Recent pneumonia with sepsis. Negative for shortness of breath, hemoptysis, cough, or sputum production. Gastrointestinal: See HPI for pertinent findings. Genitourinary: Negative for hematuria, urgency, frequency, polyuria, dysuria, or penile discharge. Musculoskeletal: Negative for muscle aches, swelling, arthritis, and arthralgias. Neurologic: Negative for stroke or TIA. Endocrine: Negative for thyroid problems. Skin: Negative for rash or itching. Psychiatric: PTSD. Schizophrenia paranoid type. All systems: negative (See HPI) Past Medical History Past Medical History: No Reported History Additional Past Medical History / Comment(s): Obesity, assisted resident, depression, PTSD, schizophrenia paranoid type, COPD, chronic hypoxic and hypercapnic respiratory failure, hyperlipidemia, hypertension, recent hospitalization for acute respiratory failure requiring intubation mechanical ventilation. Recent sepsis-readmission History of Any Multi-Drug Resistant Organisms: ESBL Year Discovered:: 02/26/17 MDRO Source:: BLOOD ESBL E.COLI Past Surgical History: No Surgical Hx Reported Additional Past Surgical History / Comment(s): rt knee cyst, right hand cyst Past Anesthesia/Blood Transfusion Reactions: No Reported Reaction Past Psychological History: PTSD Additional Psychological History / Comment(s): friend states "mental illness" Smoking Status: Former smoker Past Alcohol Use History: None Reported Past Drug Use History: None Reported - Past Family History Father Family Medical History: Unable to Obtain Mother Family Medical History: Unable to Obtain Medications and Allergies Home Medications Medication Instructions Recorded Confirmed Type Aspirin EC [Ecotrin Low Dose] 81 mg PO DAILY 01/15/17 03/12/17 History Atorvastatin [Lipitor] 20 mg PO HS 01/15/17 03/12/17 History lamoTRIgine [LaMICtal] 100 mg PO BID 01/15/17 03/12/17 History traZODone HCL 100 mg PO HS 01/15/17 03/12/17 History Ferrous Sulfate [Feosol] 325 mg PO TID 02/26/17 03/12/17 History Cranberry-Vit C Liquid 30 ml PO BID 03/12/17 03/12/17 History Pantoprazole [Protonix] 40 mg PO DAILY 03/12/17 03/12/17 History predniSONE See Taper PO DIRECTED 03/12/17 03/12/17 History Allergies Allergy/AdvReac Type Severity Reaction Status Date / Time No Known Allergies Allergy Verified 03/12/17 14:24 Physical Exam Vitals: Vital Signs Temp Pulse Pulse Resp BP BP Pulse Ox 03/13/17 09:00 76 03/13/17 08:48 76 03/13/17 04:00 97.1 F L 97 18 118/58 96 03/13/17 00:00 99.3 F 98 18 112/56 97 03/12/17 21:39 98.0 F 104 H 18 132/73 95 03/12/17 21:38 98.0 F 104 H 18 132/73 98 03/12/17 20:00 97.3 F L 103 H 18 132/65 97 03/12/17 19:08 97.1 F L 107 H 16 122/70 98 03/12/17 18:38 98 F 107 H 16 125/63 99 03/12/17 18:28 97.5 F L 108 H 16 106/51 97 03/12/17 17:43 97.6 F 105 H 16 106/51 99 03/12/17 16:20 101 H 16 03/12/17 16:16 97.0 F L 101 H 16 121/81 100 03/12/17 15:33 98.7 F 107 H 19 103/52 98 03/12/17 15:15 109 H 19 115/56 100 03/12/17 15:03 98.5 F 112 H 18 117/67 99 03/12/17 14:53 96.9 F L 107 H 20 116/57 100 03/12/17 14:46 97.9 F 108 H 20 114/58 100 03/12/17 13:56 110 H 18 122/54 99 03/12/17 12:31 97.1 F L 122 H 18 98/54 91 L Intake and Output 03/12/17 03/13/17 03/13/17 22:59 06:59 14:59 Intake Total 620 Output Total 100 250 400 Balance 520 -250 -400 Intake: Blood Product 620 Rc As-1 Unit 310 [id number] Rc As-1 Unit 310 [id number] Output: Urine 100 250 400 Other: Voiding Method Urinal Urinal # Voids 1 Weight 106 kg 105.5 kg General appearance: The patient is alert, oriented, in no acute distress. HET: Head is normocephalic and atraumatic. Pupils are equal and reactive. Oropharynx is clear without lesions. Neck: Supple without lymphadenopathy. Trachea midline. Heart: S1 S2. Regular rate and rhythm. Lungs: Diminished in bases bilaterally.. Abdomen: Soft, nontender, nondistended with bowel sounds. No peritoneal signs. No palpable organomegaly or masses. Extremities: Left upper extremity PICC line without erythema or drainage. Normal skin color and turgor. No cyanosis, rash, ulceration, clubbing, or edema. Radial and pedal pulses are 2/4 bilaterally. Neurological: No focal deficits. Strength and sensation are grossly intact. Results CBC & Chem 7: 03/13/17 05:55 03/13/17 05:55 Labs: Abnormal Lab Results - Last 24 Hours (Table) 03/12/17 03/12/17 03/12/17 Range/Units 13:00 13:00 13:00 WBC 23.5 H (3.8-10.6) k/uL RBC 2.87 L (4.30-5.90) m/uL Hgb 7.2 L D (13.0-17.5) gm/dL Hct 23.7 L (39.0-53.0) % MCHC 30.3 L (31.0-37.0) g/dL RDW 18.4 H (11.5-15.5) % Neutrophils # 21.4 H (1.3-7.7) k/uL Neutrophils # (Manual) (1.3-7.7) k/uL Metamyelocytes # (Man) (0) k/uL Myelocytes # (Manual) (0) k/uL PT (9.0-12.0) sec INR (<1.2) APTT (22.0-30.0) sec Sodium 136 L (137-145) mmol/L BUN 59 H (9-20) mg/dL Glucose 103 H (74-99) mg/dL Calcium 7.8 L (8.4-10.2) mg/dL Total Creatine Kinase <20 L (55-170) U/L Troponin I 0.053 H* (0.000-0.034) ng/mL Total Protein 4.4 L (6.3-8.2) g/dL Albumin 2.2 L (3.5-5.0) g/dL Crossmatch 03/12/17 03/12/17 03/12/17 Range/Units 13:00 13:00 17:52 WBC 19.6 H (3.8-10.6) k/uL RBC 2.94 L (4.30-5.90) m/uL Hgb 8.0 L (13.0-17.5) gm/dL Hct 24.8 L (39.0-53.0) % MCHC (31.0-37.0) g/dL RDW 18.8 H (11.5-15.5) % Neutrophils # (1.3-7.7) k/uL Neutrophils # (Manual) 17.00 H (1.3-7.7) k/uL Metamyelocytes # (Man) 0.39 H (0) k/uL Myelocytes # (Manual) 0.20 H (0) k/uL PT 12.4 H (9.0-12.0) sec INR 1.3 H (<1.2) APTT 20.9 L (22.0-30.0) sec Sodium (137-145) mmol/L BUN (9-20) mg/dL Glucose (74-99) mg/dL Calcium (8.4-10.2) mg/dL Total Creatine Kinase (55-170) U/L Troponin I (0.000-0.034) ng/mL Total Protein (6.3-8.2) g/dL Albumin (3.5-5.0) g/dL Crossmatch See Detail 03/13/17 03/13/17 Range/Units 05:55 05:55 WBC 16.0 H (3.8-10.6) k/uL RBC 2.80 L (4.30-5.90) m/uL Hgb 7.7 L (13.0-17.5) gm/dL Hct 23.2 L (39.0-53.0) % MCHC (31.0-37.0) g/dL RDW 18.8 H (11.5-15.5) % Neutrophils # 12.9 H (1.3-7.7) k/uL Neutrophils # (Manual) (1.3-7.7) k/uL Metamyelocytes # (Man) (0) k/uL Myelocytes # (Manual) (0) k/uL PT (9.0-12.0) sec INR (<1.2) APTT (22.0-30.0) sec Sodium 135 L (137-145) mmol/L BUN 42 H (9-20) mg/dL Glucose (74-99) mg/dL Calcium 7.9 L (8.4-10.2) mg/dL Total Creatine Kinase (55-170) U/L Troponin I (0.000-0.034) ng/mL Total Protein 4.0 L (6.3-8.2) g/dL Albumin 2.0 L (3.5-5.0) g/dL Crossmatch Assessment and Plan (1) GI bleed Status: Acute (2) Melena Status: Acute (3) Acute blood loss anemia Status: Acute Plan: 1. CBC monitoring. 2. Protonix 40 mg IV twice daily. 3. Continue with Feosol twice daily. 4. EGD evaluation tomorrow. The roof truss detailer has discussed the risks, benefits and alternative therapies for the above-mentioned procedure and for both sedation/analgesia as well as necessary blood product administration, if indicated, as they pertain to this patient. The patient has indicated understanding and acceptance of the risks and procedures discussed. Thank you for this kind referral and the opportunity to participate in the care of your patient. This consultation was discussed with Dr. Jean. The impression and plan of care have been directed as dictated.
[2017-03-13 14:13] VITALS: BMI 33.3
[2017-03-13] MEDS: ATORVASTATIN 20 MG TAB PO SCH (20:59)
[2017-03-14] MEDS: lamoTRIgine 100 MG TAB PO SCH ×2 (00:03→08:43)
[2017-03-14] MEDS: traZODone HCL 100 MG TAB PO SCH (00:03)
[2017-03-14] MEDS: QUEtiapine 50 MG TAB PO SCH (00:03)
[2017-03-14] MEDS: SODIUM CHLORIDE 0.9% 1,000 ML IV SCH ×2 (06:49→17:20)
[2017-03-14] MEDS: FERROUS SULFATE 325 MG TAB PO SCH ×2 (06:50→17:22)
[2017-03-14] MEDS ORDERED: LIDOCAINE 1% INJ 10MG/ML (20 ML MDV) ONE (08:07)
[2017-03-14] MEDS: IPRATROPIUM-ALBUTEROL 3 ML NEB INHALATION SCH ×4 (08:07→20:26)
[2017-03-14] MEDS ORDERED: PROPOFOL 10 MG/ML 20 ML VIAL IV ONE (08:07)
[2017-03-14] MEDS ORDERED: IV FLUID CONTINUATION 1,000 ML IV ONE (08:11)
--- NOTE | 2017-03-14 08:20 | P.PCN ---
Date of Procedure: 03/14/17 Preoperative Diagnosis: Postoperative Diagnosis: Procedure(s) Performed: BRIEF HISTORY: Patient is a 71-year-old, pleasant, white male, scheduled for an upper endoscopy as part of evaluation of black tarry stools for the last few days duration. He dropped from 11-7.2 g/dL. His and scheduled for an upper endoscopy to evaluate further. PROCEDURE PERFORMED: Esophagogastroduodenoscopy with biopsy. PREOPERATIVE DIAGNOSIS: Acute upper GI bleed. IV sedation per anesthesia. PROCEDURE: After informed consent was obtained, the patient was brought into the endoscopy unit. IV sedation was administered by Anesthesia under continuous monitoring. Initially the Olympus GIF-140 video endoscope was inserted into the mouth. Esophagus intubated without any difficulty. It was gradually advanced into the stomach and duodenum and carefully examined. The bulb appeared normal. There was a superficial ulceration noted in the second portion of the duodenum with slightly raised margins and multiple biopsies were done from this area. There was no active bleeding noted. The scope at this time was withdrawn to the stomach, adequately insufflated with air, and upon careful examination, mucosa of the antrum, body, cardia and the fundus appeared normal. The scope was then withdrawn into the esophagus. The GE junction was located at 41 cm from the incisors. There were linear erosions with ulcerations in the distal esophagus extending from 30-40 cm from the incisors with exudates consistent with severe reflux esophagitis. The proximal esophagus appeared normal and the patient tolerated the procedure well. IMPRESSION: 1. Superficial duodenal ulcer with no active bleeding. 2. Linear erosions with exudate in the distal esophagus consistent with LA grade C reflux esophagitis. RECOMMENDATIONS: The findings of this examination were discussed with the patient. He will be continued on Protonix 40 mg twice daily and diet will be advanced as tolerated. In the meantime will await the biopsy results. Implants: Indications for Procedure: Operative Findings: Description of Procedure:
[2017-03-14] MEDS: NYSTATIN 100,000 UNIT/GM POWD 15 GM TOPICAL SCH (08:43)
[2017-03-14] MEDS: ERTAPENEM 1 GM in SODIUM CHLORIDE 0.9% 50 ML IVPB SCH (08:43)
[2017-03-14] MEDS: PANTOPRAZOLE 40 MG/10 ML VIAL IVP SCH (08:43)
[2017-03-14] MEDS: SUCRALFATE 1 GM TAB PO SCH (17:21)
[2017-03-15] MEDS: lamoTRIgine 100 MG TAB PO SCH ×3 (00:43→20:29)
[2017-03-15] MEDS: NYSTATIN 100,000 UNIT/GM POWD 15 GM TOPICAL SCH ×3 (00:43→20:35)
[2017-03-15] MEDS: SUCRALFATE 1 GM TAB PO SCH ×5 (00:43→20:29)
[2017-03-15] MEDS: QUEtiapine 50 MG TAB PO SCH ×2 (00:43→20:29)
[2017-03-15] MEDS: traZODone HCL 100 MG TAB PO SCH ×2 (00:43→20:28)
[2017-03-15] MEDS: PANTOPRAZOLE 40 MG/10 ML VIAL IVP SCH ×3 (00:43→20:29)
[2017-03-15] MEDS: ATORVASTATIN 20 MG TAB PO SCH ×2 (00:43→20:29)
[2017-03-15 06:43] LABS: Anisocytosis Moderate; Basophils % (A) 0 %; CH 27.4; CHCM 30.9; Eosinophils # (A) 0.3 k/uL (0-0.7); Eosinophils % (A) 3 %; HDW 3.71; Hypochromasia Marked; Luc # (Auto) 0.08; Luc % (Auto) 1; Lymphocytes # (A) 0.9 k/uL (1.0-4.8); Lymphocytes % (A) 11 %; MCH 27.1 pg (25.0-35.0); MCHC 30.4 g/dL (31.0-37.0); Monocytes # (A) 0.3 k/uL (0-1.0); Monocytes % (A) 4 %; Neutrophils # (A) 6.9 k/uL (1.3-7.7); Neutrophils % (A) 81 %; Poikilocytosis Slight; RBC 2.48 m/uL (4.30-5.90); RDW 20.8 % (11.5-15.5); WBC 8.5 k/uL (3.8-10.6); WBC (Perox) 8.62
[2017-03-15 06:55] LABS: HGB 6.7 gm/dL (13.0-17.5)
[2017-03-15 07:03] LABS: Anion Gap 1 mmol/L; Blood Urea Nitrogen 13 mg/dL (9-20); Calcium 7.7 mg/dL (8.4-10.2); Carbon Dioxide 27 mmol/L (22-30); Chloride 109 mmol/L (98-107); Glucose 81 mg/dL (74-99); Non-African American GFR(MDRD) >60 (>60 ml/min/1.73 sqM); Potassium 3.6 mmol/L (3.5-5.1); Sodium 137 mmol/L (137-145)
[2017-03-15] MEDS: SODIUM CHLORIDE 0.9% 1,000 ML IV SCH ×2 (07:18→16:59)
[2017-03-15] MEDS: FERROUS SULFATE 325 MG TAB PO SCH ×2 (07:18→16:59)
[2017-03-15] MEDS: IPRATROPIUM-ALBUTEROL 3 ML NEB INHALATION SCH ×4 (08:13→19:59)
[2017-03-15] MEDS: ERTAPENEM 1 GM in SODIUM CHLORIDE 0.9% 50 ML IVPB SCH (08:44)
--- NOTE | 2017-03-15 12:01 | HP ---
DATE OF SERVICE: 03/14/2017 CHIEF COMPLAINT: GI bleed. HISTORY OF PRESENT ILLNESS: This 71-year-old gentleman with the past medical history of multiple medical problems including history of obesity, history of PTSD, COPD, history of respiratory failuire, mechanical ventilation, history of sepsis, ESBL E. coli; being followed by Dr. Daugherty in the outpatient sitting , was apparently in the ECF being followed by Dr. Freitas. At this time the patient was apparently brought to [facility] with complaints of lower GI bleeding. The patient also has some cough and congestion. The patient had two episodes of black, tarry stools. There is no history of any fever or rigors. No history of headache, loss of consciousness or seizures. Hemoglobin was found to be 7.[address] Jean performed an endoscopy which showed superficial duodenal ulcer with no active bleeding and linear erosions in the esophagus consistent with grade 3 reflux esophagitis. The patient is unable to coherent history. History taken with my discussions and review of chart at this time. PAST MEDICAL HISTORY: History of obesity, history of depression, PTSD, history of schizophrenia, paranoid type; history of COPD. HOME MEDICATIONS: 1. Cranberry liquid 30 mL a day. 2. Ecotrin 81 mg. 3. Iron sulfate 325 mg t.i.d. 4. Invanz 1 gm IV daily. 5. Mylanta 100 mg b.i.d. 6. Mycostatin. 7. DuoNeb q.i.d. and p.r.n. 8. Trazodone 100 mg q,h.s. 9. Prednisone taper. 10. Seroquel 50 mg a day. 11. Protonix 40 mg. 12. Lipitor 20 mg q.h.s. ALLERGIES: None. Family history, social history and review of systems could not be taken at length because of recent mental status changes. PHYSICAL EXAMINATION: Pulse is 90, blood pressure 130/59, respirations 20, temperature 97.9, pulse ox 99% on 2 liters. HEENT: Conjunctivae normal. Oral mucosa moist. NECK: No jugular venous distention. No thyroid enlargement, no lymph node enlargement. CARDIOVASCULAR: S1/.S2. RESPIRATIONS: Diminished breath sounds, especially at the bases. A few scattered rhonchi. No crackles. ABDOMEN: Soft, nontender. No mass palpable. LEGS: No edema, no swelling. NERVOUS SYSTEM: Diffusely weak. SKIN: No rash. LABS: WBC 16, hemoglobin 7.7. ASSESSMENT: 1. Acute upper gastrointestinal bleeding secondary to duodenal ulcer with acute blood loss anemia. 2. Increased WBC. 3. Hypernatremia. 4. Troponin 0.053, indeterminate. 5. History of depression, posttraumatic stress disorder and schizophrenia, paranoid type. 6. History of chronic obstructive pulmonary disease. 7. Chronic hypoxic respiratory failure. 8. History of ESBL Escherichia coli. 9. FULL CODE. RECOMMENDATIONS AND DISCUSSION: In this 71-year-old gentleman who presented with multiple complex medical problems, we will monitor the patient closely, continue the current medication, continue symptomatic treatment, resume the homed medications. Will also recommend UA with micro. Otherwise, avoid antiplatelet agents, proton pump inhibitors. Will also hold iron and aspirin also. Closely follow with Dr. Jean. Guarded prognosis because of multiple complex medical issues. Further recommendations to follow. [facility]
--- NOTE | 2017-03-15 16:46 | P.PN ---
Subjective Date of service 03/15/2017. Personal being dictated for Dr. Curry. Interval history: This a 71-year-old gentleman admitted with acute upper GI bleed secondary to duodenal ulcer with acute blood loss anemia and multiple other medical issues. No further episodes of bleeding, hemoglobin 6.7, asymptomatic. Iron and aspirin remain on hold. Telemetry reporting sinus rhythm , multifocal PVCs. Refusing blood pressure monitoring today. Denies chest pain , palpitations or increasing shortness of breath. Objective - Vital Signs Vital signs: Vital Signs Temp 99.3 F 03/15/17 15:50 Pulse 94 03/15/17 15:50 Resp 20 03/15/17 15:50 BP 117/59 03/15/17 04:00 Pulse Ox 93 L 03/15/17 15:50 Intake & Output 03/14/17 03/15/17 03/15/17 18:59 06:59 18:59 Intake Total 1547 600 237 Output Total 500 400 525 Balance 1047 200 -288 Weight 112 kg Intake: IV 750 600 Sodium Chloride 0.9% 1, 600 600 000 ml @ 75 mls/hr IV . [id number] [facility] Rx#:[id number] Oral 797 237 Output: Urine 500 400 525 Other: Voiding Method Urinal - Exam PHYSICAL EXAM: VITAL SIGNS: [As above] GENERAL: [Sitting up in bed, no acute distress] HEENT: [Pupils equal conjunctiva normal. Oral mucosa moist] NECK: [Supple, no JVD] RESPIRATORY EFFORT:[ Normal] LUNGS: [Diminished bases, occasional rhonchi, no crackles] CARDIOVASCULAR[ regular S1 and S2, no edema] GI: [Abdomen soft, nontender, positive bowel sounds. No organomegaly, no guarding, no rigidity] PSYCH: [Alert and oriented -3, mood and affect normal.] SKIN: No rash NEURO: Generalized diffuse weakness - Labs CBC & Chem 7: 03/15/17 06:20 03/15/17 06:20 Labs: Abnormal Lab Results - Last 24 Hours (Table) 03/15/17 03/15/17 Range/Units 06:20 06:20 RBC 2.48 L (4.30-5.90) m/uL Hgb 6.7 L* (13.0-17.5) gm/dL Hct 22.0 L (39.0-53.0) % MCHC 30.4 L (31.0-37.0) g/dL RDW 20.8 H (11.5-15.5) % Lymphocytes # 0.9 L (1.0-4.8) k/uL Chloride 109 H (98-107) mmol/L Calcium 7.7 L (8.4-10.2) mg/dL Microbiology - Last 24 Hours (Table) 03/12/17 18:58 Blood Culture - Preliminary Blood No Growth after 48 hours Assessment and Plan Plan: 1. [ Acute GI bleed secondary to duodenal ulcer with acute blood loss anemia]. 2. [ Leukocytosis]. 3. [ Hyponatremia]. 4. [ Troponin 0.053, indeterminate]. 5. [ Chronic hypoxic respiratory failure]. Plan: Continue on current medication regime , PPI, monitoring and symptomatic treatment. Biopsy results pending. Discharge planning in progress for ECF rehab tomorrow. Follow closely with GI. Further recommendations to follow. The impression and plan of care has been dictated as directed. : I performed a H&P examination of this patient and discussed the same with the dictator. I agree with the dictator's note. Any additional findings/opinions/ etc. will be noted.
[2017-03-16 01:03] VITALS: RESP 20
[2017-03-16 05:16] VITALS: TEMP 97.4
[2017-03-16] MEDS: FERROUS SULFATE 325 MG TAB PO SCH (06:58)
[2017-03-16] MEDS: SUCRALFATE 1 GM TAB PO SCH ×2 (06:58→13:29)
[2017-03-16 07:03] LABS: Anisocytosis Slight; Basophils % (A) 0 %; CH 26.9; Eosinophils # (A) 0.3 k/uL (0-0.7); Eosinophils % (A) 3 %; HCT 24.2 % (39.0-53.0); HDW 3.87; HGB 7.6 gm/dL (13.0-17.5); Hypochromasia Marked; Luc # (Auto) 0.16; Luc % (Auto) 2; Lymphocytes # (A) 1.1 k/uL (1.0-4.8); Lymphocytes % (A) 11 %; MCH 27.3 pg (25.0-35.0); MCHC 31.3 g/dL (31.0-37.0); MCV 87.3 fL (80.0-100.0); Mean Platelet Volume 7.4; Monocytes # (A) 0.4 k/uL (0-1.0); Monocytes % (A) 4 %; Neutrophils # (A) 7.5 k/uL (1.3-7.7); Neutrophils % (A) 80 %; Poikilocytosis Slight; RBC 2.78 m/uL (4.30-5.90); RDW 19.6 % (11.5-15.5); WBC 9.4 k/uL (3.8-10.6); WBC (Perox) 9.66
[2017-03-16] MEDS: IPRATROPIUM-ALBUTEROL 3 ML NEB INHALATION SCH ×2 (07:03→11:03)
[2017-03-16 07:07] LABS: Anion Gap 2 mmol/L; Blood Urea Nitrogen 10 mg/dL (9-20); Calcium 7.4 mg/dL (8.4-10.2); Carbon Dioxide 28 mmol/L (22-30); Chloride 107 mmol/L (98-107); Glucose 81 mg/dL (74-99); Non-African American GFR(MDRD) >60 (>60 ml/min/1.73 sqM); Potassium 3.6 mmol/L (3.5-5.1); Sodium 137 mmol/L (137-145)
[2017-03-16] MEDS: PANTOPRAZOLE 40 MG/10 ML VIAL IVP SCH (08:42)
[2017-03-16] MEDS: ERTAPENEM 1 GM in SODIUM CHLORIDE 0.9% 50 ML IVPB SCH (08:42)
[2017-03-16] MEDS: lamoTRIgine 100 MG TAB PO SCH (08:43)
[2017-03-16] MEDS: NYSTATIN 100,000 UNIT/GM POWD 15 GM TOPICAL SCH (08:45)
--- NOTE | 2017-03-16 12:12 | P.DS ---
Providers Date of admission: 03/12/17 15:13 Attending physician: Asher Wagner MD Consults: 03/12/17 15:14 Consult Physician Urgent Consulting Provider: Pasquale Carrillo Consult Reason/Comments: Acute GI bleed Do you want consulting provider notified?: Yes Primary care physician: [facility] Course: This 71-year-old gentleman being followed by Dr. Daugherty in the outpatient setting was admitted from [facility] with the history of for acute GI bleed. Patient had an upper endoscopically by Dr. Trujillo. Endoscopy showed duodenal ulcer. Acute blood loss anemia secondary to GI blood loss was considered. Treated symptomatically. Improved significantly. On exam vitals stable. Cardio S1 and S2 normal. Breath sounds equal. Abdomen soft nontender. No system diffusely weak. The patient be transferred to [facility] in a stable condition with guarded prognosis. Recommended follow-up with Dr. Trujillo in the outpatient setting and follow-up hemoglobins. Total time taken 35 minutes. Final diagnosis 1. Acute upper GI bleed secondary to duodenal ulcer and acute blood loss anemia status post EGD. 2. Leukocytosis 2. Hyponatremia 4. Troponin 0.053 indeterminate of undetermined origin. 5. Chronic hypoxic respiratory failure Patient Condition at Discharge: Stable Plan - Discharge Summary New Discharge Prescriptions: New Ferrous Sulfate [Iron (65 MG Elemental)] 325 mg PO BID-W/MEALS tab Sucralfate [Carafate] 1 gm PO ACHS tab Continue traZODone HCL 100 mg PO HS Atorvastatin [Lipitor] 20 mg PO HS lamoTRIgine [LaMICtal] 100 mg PO BID Ertapenem [INVanz] 1 gm IVPB Q24H #11 bag Nystatin 100,000 Unit/gm Powd [Mycostatin Powder] 1 applic TOPICAL BID dose Ipratropium-Albuterol Nebulize [Duoneb 0.5 mg-3 mg/3 ml Soln] 3 ml INHALATION RT-QID #0 neb QUEtiapine [SEROquel] 50 mg PO HS #1 tab Pantoprazole [Protonix] 40 mg PO DAILY Cranberry-Vit C Liquid 30 ml PO BID Discontinued Aspirin EC [Ecotrin Low Dose] 81 mg PO DAILY Ferrous Sulfate [Feosol] 325 mg PO TID predniSONE See Taper PO DIRECTED Discharge Medication List Atorvastatin [Lipitor] 20 mg PO HS 01/15/17 [History] lamoTRIgine [LaMICtal] 100 mg PO BID 01/15/17 [History] traZODone HCL 100 mg PO HS 01/15/17 [History] Ertapenem [INVanz] 1 gm IVPB Q24H #11 bag 03/10/17 [Rx] Ipratropium-Albuterol Nebulize [Duoneb 0.5 mg-3 mg/3 ml Soln] 3 ml INHALATION RT -QID #0 neb 03/10/17 [Rx] Nystatin 100,000 Unit/gm Powd [Mycostatin Powder] 1 applic TOPICAL BID dose [Rx] QUEtiapine [SEROquel] 50 mg PO HS #1 tab 03/10/17 [Rx] Cranberry-Vit C Liquid 30 ml PO BID 03/12/17 [History] Pantoprazole [Protonix] 40 mg PO DAILY 03/12/17 [History] Ferrous Sulfate [Iron (65 MG Elemental)] 325 mg PO BID-W/MEALS tab 03/16/17 [Rx ] Sucralfate [Carafate] 1 gm PO ACHS tab 03/16/17 [Rx] Follow up Appointment(s)/Referral(s): Cassidy Daugherty MD [STAFF PHYSICIAN] - 1 Week (after dc from [facility]) Reddy Freitas DO [Primary Care Provider] - 3 Days (while at [facility]) Activity/Diet/Wound Care/Special Instructions: ASA currently on hold PH Medi Diet: Soft bland Activity: As tolerated CBC, BMP in 3 days
[2017-03-16 12:54] VITALS: BP 102/53; PULSE 98
== END 2017-03-16 14:18 | DRG 378 ==
LOC: EC 12:24 → 6SEL 15:13
PROVIDERS: ADMIT Internal Medicine; ATTEND Internal Medicine
PROC: 30233N1 Transfusion of Nonautologous Red Blood Cells into Peripheral Vein, Percutaneous Approach (ICD-10-PCS; 2017-03-12)
PROC: 0DB98ZX Excision of Duodenum, Via Natural or Artificial Opening Endoscopic, Diagnostic (ICD-10-PCS; principal; 2017-03-14 08:00)
DX: K26.4 Chronic or unspecified duodenal ulcer with hemorrhage (principal); J96.11 Chronic respiratory failure with hypoxia; L89.312 Pressure ulcer of right buttock, stage 2; I95.9 Hypotension, unspecified; J44.9 Chronic obstructive pulmonary disease, unspecified; J96.12 Chronic respiratory failure with hypercapnia; E87.1 Hypo-osmolality and hyponatremia; F20.0 Paranoid schizophrenia; D62 Acute posthemorrhagic anemia; K21.0 Gastro-esophageal reflux disease with esophagitis; R11.2 Nausea with vomiting, unspecified; R74.8 Abnormal levels of other serum enzymes; D72.829 Elevated white blood cell count, unspecified; R00.0 Tachycardia, unspecified; F32.9 Major depressive disorder, single episode, unspecified; I49.3 Ventricular premature depolarization; F43.10 Post-traumatic stress disorder, unspecified; R19.7 Diarrhea, unspecified; E66.9 Obesity, unspecified; E78.5 Hyperlipidemia, unspecified; Z79.2 Long term (current) use of antibiotics; Z79.82 Long term (current) use of aspirin; Z71.3 Dietary counseling and surveillance; Z79.899 Other long term (current) drug therapy; Z87.891 Personal history of nicotine dependence; Z16.24 Resistance to multiple antibiotics; Z95.828 Presence of other vascular implants and grafts; Z91.19 Patient's noncompliance with other medical treatment and regimen; Z79.52 Long term (current) use of systemic steroids; Z86.79 Personal history of other diseases of the circulatory system; Z87.01 Personal history of pneumonia (recurrent); Z86.19 Personal history of other infectious and parasitic diseases; Z87.448 Personal history of other diseases of urinary system; Z87.09 Personal history of other diseases of the respiratory system
CPT/HCPCS: 36415; 43239; 74022; 80048; 80053; 82272; 82550; 82553; 83605; 83690; 83735; 84484; 85025; 85610; 85730; 86850; 86900; 86901; 86920; 87040; 88305; 94640; 94760; 96361; 96365; 96375; 99291

== ENCOUNTER 2017-04-16 18:18 | Emergency (ER) | payer MEDICARE, OTHER ==
[2017-04-16 18:30] VITALS: PULSE 100
--- NOTE | 2017-04-16 18:34 | ED ---
General Adult HPI <Damien Toth - Last Filed: 04/16/17 19:24> - General Source: patient, EMS, RN notes reviewed, Caregiver <Tyshawn Silveira - Last Filed: 04/16/17 21:26> - General Stated complaint: altered mental status Time Seen by Provider: 04/16/17 18:22 - History of Present Illness Initial comments: 71-year-old male presented from the [facility] with aggressive behavior, threatening statements to insure the nursing staff and jerking movements. Patient does have past medical history of PTSD, bipolar depression, schizophrenia. His been no recent change in his psychiatric medications. He has been treated for a UTI with Macrobid over the last week. At the time of my evaluation patient is alert and oriented 3. He has no complaints. He is compliant with history and examination. Denies chest pain or shortness breath. Denies abdominal pain. Denies any pain complaints. He does not know why he is in the emergency department for evaluation (Tyshawn Silveira) - Related Data Home Medications Medication Instructions Recorded Confirmed lamoTRIgine [LaMICtal] 100 mg PO BID 01/15/17 04/16/17 Cranberry-Vit C Liquid 30 ml PO BID 03/12/17 04/16/17 Acetaminophen [Tylenol] 650 mg PO Q8H PRN 04/16/17 04/16/17 Atorvastatin [Lipitor] 20 mg PO HS 04/16/17 04/16/17 Ferrous Sulfate [Feosol] 325 mg PO BID 04/16/17 04/16/17 Furosemide [Lasix] 20 mg PO DAILY 04/16/17 04/16/17 HYDROcodone/APAP 5-325MG [[place] 1 tab PO Q4-6H PRN 04/16/17 04/16/17 5-325] Ipratropium-Albuterol Nebulize 3 ml INHALATION RT-Q4H PRN 04/16/17 04/16/17 [Duoneb 0.5 mg-3 mg/3 ml Soln] Ipratropium-Albuterol Nebulize 3 ml INHALATION RT-QID@07,12,16,20 04/16/1704/16 [Duoneb 0.5 mg-3 mg/3 ml Soln] Nitrofurantoin Monohyd/M-Cryst 100 mg PO BID@0800,199904/16/17 04/16/17 [Macrobid] Omeprazole [PriLOSEC] 20 mg PO DAILY 04/16/17 04/16/17 QUEtiapine [SEROquel] 50 mg PO HS@199904/16/17 04/16/17 Sucralfate [Carafate] 1 gm PO ACHS@07,11,16,20 04/16/17 04/16/17 Allergies Allergy/AdvReac Type Severity Reaction Status Date / Time No Known Allergies Allergy Verified 04/16/17 18:25 Review of Systems ROS Other: All systems not noted in ROS Statement are negative. <Damien Toth - Last Filed: 04/16/17 19:24> ROS Other: All systems not noted in ROS Statement are negative. <Tyshawn Silveira - Last Filed: 04/16/17 21:26> ROS Statement: Those systems with pertinent positive or pertinent negative responses have been documented in the HPI. Past Medical History Past Medical History: No Reported History Additional Past Medical History / Comment(s): Obesity, [facility] resident, depression, PTSD, schizophrenia paranoid type, COPD, chronic hypoxic and hypercapnic respiratory failure, hyperlipidemia, hypertension, recent hospitalization for acute respiratory failure requiring intubation mechanical ventilation. Recent sepsis-readmission History of Any Multi-Drug Resistant Organisms: ESBL Date of last positivie culture/infection: 04/04/17 MDRO Source:: ESBL E.COLI Past Surgical History: No Surgical Hx Reported Additional Past Surgical History / Comment(s): rt knee cyst, right hand cyst Past Anesthesia/Blood Transfusion Reactions: No Reported Reaction Past Psychological History: PTSD Additional Psychological History / Comment(s): friend states "mental illness" Smoking Status: Former smoker Past Alcohol Use History: None Reported Past Drug Use History: None Reported - Past Family History Father Family Medical History: Unable to Obtain Mother Family Medical History: Unable to Obtain <Tyshawn Silveira - Last Filed: 04/16/17 21:26> General Exam General appearance: alert, in no apparent distress Head exam: Present: atraumatic, normocephalic Eye exam: Present: normal appearance, PERRL ENT exam: Present: normal exam Neck exam: Present: normal inspection. Absent: tenderness, meningismus Respiratory exam: Present: decreased breath sounds. Absent: respiratory distress Cardiovascular Exam: Present: regular rate, normal rhythm GI/Abdominal exam: Present: soft. Absent: distended, tenderness Extremities exam: Present: normal inspection, normal capillary refill. Absent: pedal edema Neurological exam: Present: alert, oriented X3. Absent: motor sensory deficit Psychiatric exam: Present: agitated Skin exam: Present: warm, dry, intact. Absent: cyanosis, diaphoretic <Tyshawn Silveira - Last Filed: 04/16/17 21:26> Course <Damien Toth - Last Filed: 04/16/17 19:24> <Tyshawn Silveira - Last Filed: 04/16/17 21:26> Vital Signs 04/16/17 18:20 Temperature 97.4 F L Pulse Rate 100 Respiratory 18 Rate Blood Pressure 164/83 O2 Sat by Pulse 94 L Oximetry - Reevaluation(s) Reevaluation #1: 04/16/17 18:33 Nursing staff did attempt to contact the [facility]pc for further information, initial attempt was unsuccessful. (Tyshawn Silveira) Reevaluation #2: 04/16/17 19:22 After discussion with [facility]pc staff, patient's agitation and aggression) comments are baseline for this patient. Concern and reason for evaluation is jerking movements. (Tyshawn Silveira) EKG Findings - EKG Comments: EKG Findings:: EKG showing normal sinus rhythm with a rate of 90. No abnormal ST segment changes or T-wave inversions. QTC is 477. Other intervals are normal. No ectopy. <Damien Toth - Last Filed: 04/16/17 19:24> Medical Decision Making - Lab Data Result diagrams: 04/16/17 18:36 04/16/17 18:36 <Damien Toth - Last Filed: 04/16/17 19:24> - Lab Data Result diagrams: 04/16/17 18:36 04/16/17 18:36 <Tyshawn Silveira - Last Filed: 04/16/17 21:26> - Medical Decision Making 71-year-old male presenting with chief complaint of jerking movements. Patient does have history of PTSD, bipolar, schizophrenia. He has had some aggressive behavior. This was discussed with the nursing staff at the [facility] where he resides. This is unchanged from baseline. There was concern for the jerking movements. These movements are not observed fall patient is in the emergency department. His neurologic examination is nonfocal. CT head was obtained, negative for hemorrhage or mass effect, there is small vessel ischemia. Chest x-ray shows right lower lobe pneumonia however this is stable and unchanged from previous x-ray. Urinalysis shows 6 WBCs, however the patient is currently being treated for UTI and this is significantly improved over previous. There is a white blood cell count of 19.8 which is likely due to currently treated for urinary tract infection. Hemoglobin is 9.1 which is improved from previous. Patient does have a venous pCO2 of 62 with a CO2 of 30 , there is some chronic CO2 retention. I do not believe the CO2 is contributing to the patient's jerking movements. BUN is 11, no concern for uremic encephalopathy. Ammonia normal at 14. Albumin is improved at 3.2. Patient is alert and oriented. Nonfocal neurologic exam. Behavior with agitation and aggression is at baseline according to staff members at the [facility]. Patient is alert and oriented 3. He is eager for discharge. Patient's only medication that could be contributing to the jerking movement his Seroquel. According to history his movements do not seem consistent with seizure activity. Patient will be discharged, he will return to the [facility]. (Tyshawn Silveira) - Lab Data Lab Results 04/16/17 04/16/17 04/16/17 Range/Units 18:36 18:36 18:36 WBC (3.8-10.6) k/uL RBC (4.30-5.90) m/uL Hgb (13.0-17.5) gm/dL Hct (39.0-53.0) % MCV (80.0-100.0) fL MCH (25.0-35.0) pg MCHC (31.0-37.0) g/dL RDW (11.5-15.5) % Plt Count (150-450) k/uL Neutrophils % % Lymphocytes % % Monocytes % % Eosinophils % % Basophils % % Neutrophils # (1.3-7.7) k/uL Lymphocytes # (1.0-4.8) k/uL Monocytes # (0-1.0) k/uL Eosinophils # (0-0.7) k/uL Basophils # (0-0.2) k/uL Hypochromasia Anisocytosis VBG pH 7.31 (7.31-7.41) VBG pCO2 62 H (37-51) mmHg VBG HCO3 31 H (24-28) mmol/L Sodium 139 (137-145) mmol/L Potassium 4.8 (3.5-5.1) mmol/L Chloride 101 (98-107) mmol/L Carbon Dioxide 30 (22-30) mmol/L Anion Gap 8 mmol/L BUN 11 (9-20) mg/dL Creatinine 1.09 (0.66-1.25) mg/dL Est GFR (MDRD) Af Amer >60 (>60 ml/min/1.73 sqM) Est GFR (MDRD) Non-Af >60 (>60 ml/min/1.73 sqM) Glucose 117 H (74-99) mg/dL Calcium 9.0 (8.4-10.2) mg/dL Total Bilirubin 0.4 (0.2-1.3) mg/dL AST 24 (17-59) U/L ALT 36 (21-72) U/L Alkaline Phosphatase 118 (38-126) U/L Ammonia 14 (<30) umol/L Total Protein 6.6 (6.3-8.2) g/dL Albumin 3.2 L (3.5-5.0) g/dL TSH 1.030 (0.465-4.680) mIU/L Urine Color Urine Appearance (Clear) Urine pH (5.0-8.0) Ur Specific [place] (1.001-1.035) Urine Protein (Negative) Urine Glucose (UA) (Negative) Urine Ketones (Negative) Urine Blood (Negative) Urine Nitrite (Negative) Urine Bilirubin (Negative) Urine Urobilinogen (<2.0) mg/dL Ur Leukocyte Esterase (Negative) Urine RBC (0-5) /hpf Urine WBC (0-5) /hpf Urine Bacteria (None) /hpf 04/16/17 04/16/17 Range/Units 18:36 20:20 WBC 19.8 H (3.8-10.6) k/uL RBC 3.71 L (4.30-5.90) m/uL Hgb 9.1 L (13.0-17.5) gm/dL Hct 31.8 L (39.0-53.0) % MCV 85.7 (80.0-100.0) fL MCH 24.6 L (25.0-35.0) pg MCHC 28.7 L (31.0-37.0) g/dL RDW 17.0 H (11.5-15.5) % Plt Count 497 H D (150-450) k/uL Neutrophils % 66 % Lymphocytes % 26 % Monocytes % 5 % Eosinophils % 1 % Basophils % 1 % Neutrophils # 13.1 H (1.3-7.7) k/uL Lymphocytes # 5.1 H (1.0-4.8) k/uL Monocytes # 0.9 (0-1.0) k/uL Eosinophils # 0.1 (0-0.7) k/uL Basophils # 0.1 (0-0.2) k/uL Hypochromasia Marked Anisocytosis Slight VBG pH (7.31-7.41) VBG pCO2 (37-51) mmHg VBG HCO3 (24-28) mmol/L Sodium (137-145) mmol/L Potassium (3.5-5.1) mmol/L Chloride (98-107) mmol/L Carbon Dioxide (22-30) mmol/L Anion Gap mmol/L BUN (9-20) mg/dL Creatinine (0.66-1.25) mg/dL Est GFR (MDRD) Af Amer (>60 ml/min/1.73 sqM) Est GFR (MDRD) Non-Af (>60 ml/min/1.73 sqM) Glucose (74-99) mg/dL Calcium (8.4-10.2) mg/dL Total Bilirubin (0.2-1.3) mg/dL AST (17-59) U/L ALT (21-72) U/L Alkaline Phosphatase (38-126) U/L Ammonia (<30) umol/L Total Protein (6.3-8.2) g/dL Albumin (3.5-5.0) g/dL TSH (0.465-4.680) mIU/L Urine Color Yellow Urine Appearance Clear (Clear) Urine pH 6.5 (5.0-8.0) Ur Specific [place] 1.003 (1.001-1.035) Urine Protein Negative (Negative) Urine Glucose (UA) Negative (Negative) Urine Ketones Negative (Negative) Urine Blood Negative (Negative) Urine Nitrite Negative (Negative) Urine Bilirubin Negative (Negative) Urine Urobilinogen <2.0 (<2.0) mg/dL Ur Leukocyte Esterase Small H (Negative) Urine RBC 1 (0-5) /hpf Urine WBC 6 H (0-5) /hpf Urine Bacteria Rare H (None) /hpf Disposition <Damien Toth - Last Filed: 04/16/17 19:24> Time of Disposition: 21:26 <Tyshawn Silveira - Last Filed: 04/16/17 21:26> Clinical Impression: Agitation, Jerking movements of extremities Disposition: HOME SELF-CARE Condition: Good Referrals: Simone Ha MD [Primary Care Provider] - 1-2 days
[2017-04-16 18:48] LABS: VBG PH 7.31 (7.31-7.41)
[2017-04-16] MEDS ORDERED: LORazepam 2 MG/ML SYRINGE IM STA (18:51)
[2017-04-16 18:56] LABS: ALT 36 U/L (21-72); AST 24 U/L (17-59); Alkaline Phosphatase 118 U/L (38-126); Anion Gap 8 mmol/L; Blood Urea Nitrogen 11 mg/dL (9-20); Carbon Dioxide 30 mmol/L (22-30); Chloride 101 mmol/L (98-107); Glucose 117 mg/dL (74-99); Non-African American GFR(MDRD) >60 (>60 ml/min/1.73 sqM); Potassium 4.8 mmol/L (3.5-5.1); Sodium 139 mmol/L (137-145); Total Bilirubin 0.4 mg/dL (0.2-1.3); Total Protein 6.6 g/dL (6.3-8.2)
[2017-04-16 18:59] LABS: Anisocytosis Slight; Basophils # (A) 0.1 k/uL (0-0.2); Basophils % (A) 1 %; CH 24.1; CHCM 28.1; Eosinophils # (A) 0.1 k/uL (0-0.7); Eosinophils % (A) 1 %; HCT 31.8 % (39.0-53.0); HDW 3.15; HGB 9.1 gm/dL (13.0-17.5); Hypochromasia Marked; Luc # (Auto) 0.35; Luc % (Auto) 2; Lymphocytes # (A) 5.1 k/uL (1.0-4.8); Lymphocytes % (A) 26 %; MCH 24.6 pg (25.0-35.0); MCHC 28.7 g/dL (31.0-37.0); MCV 85.7 fL (80.0-100.0); Mean Platelet Volume 6.8; Monocytes # (A) 0.9 k/uL (0-1.0); Monocytes % (A) 5 %; Neutrophils # (A) 13.1 k/uL (1.3-7.7); Neutrophils % (A) 66 %; RBC 3.71 m/uL (4.30-5.90); WBC 19.8 k/uL (3.8-10.6); WBC (Perox) 19.89
[2017-04-16] MEDS ORDERED: ALBUTEROL NEBULIZED 2.5 MG/3 ML INHALATION STA (20:04)
[2017-04-16] MEDS ORDERED: IPRATROPIUM 0.5 MG/2.5 ML NEBU INHALATION STA (20:04)
--- NOTE | 2017-04-16 20:24 | XR ---
EXAMINATION TYPE: XR chest 2V DATE OF EXAM: 04/16/2017 COMPARISON: 03/07/2017 HISTORY: Altered mental status. COPD TECHNIQUE: Frontal and lateral views of the chest are obtained. FINDINGS: There is some patchy infiltrate in the right lower lobe. There is blunting of right costop hrenic angle. Heart is enlarged. There is pleural thickening on the right lateral chest wall. The bon y thorax is intact. IMPRESSION: There is chronic pleural thickening and infiltrate in the right lower lobe without farrar e compared to old exam. No gross heart failure. Stable cardiomegaly.
--- NOTE | 2017-04-16 20:30 | CT ---
EXAMINATION TYPE: CT brain wo con DATE OF EXAM: 04/16/2017 COMPARISON: 01/16/2017 HISTORY: Altered mental status. Patient combative and had difficulty following instructions. CT DLP: 1837.60 mGycm Automated exposure control for dose reduction was used. FINDINGS: There is patchy hypodensity in the periventricular white matter. There is no mass effect nor midline shift. There is no sign of intracranial hemorrhage. There is mucosal thickening in the left maxillary sinus. IMPRESSION: CEREBRAL ATROPHY AND CHRONIC SMALL VESSEL ISCHEMIA. SMALL VESSEL CHANGES ARE SIGNIFICANTLY INCREASED COMPARED TO LAST EXAM.
[2017-04-16 20:32] LABS: Appearance,Urine Clear (Clear); Bacteria,Urine Rare /hpf; Bilirubin,Urine Negative (Negative); Glucose,Urine (UA) Negative (Negative); Ketones,Urine Negative (Negative); Leukocyte Esterase,Urine Small (Negative); Nitrite,Urine Negative (Negative); PH, Urine 6.5 (5.0-8.0); Particle Count 334; Protein,Urine Negative (Negative); RBC,Urine 1 /hpf (0-5); Specific Gravity,Urine 1.003 (1.001-1.035); UA Billing (MACRO vs. MICRO) MICRO; Urobilinogen,Urine <2.0 mg/dL (<2.0); WBC,Urine 6 /hpf (0-5)
[2017-04-16 21:22] VITALS: BP 170/71; RESP 20; TEMP 97.9
== END 2017-04-16 22:15 | disposition home or self-care (01) ==
LOC: EC 18:18
DX: R45.1 Restlessness and agitation (principal); R29.898 Other symptoms and signs involving the musculoskeletal system; F32.9 Major depressive disorder, single episode, unspecified; F43.10 Post-traumatic stress disorder, unspecified; F20.0 Paranoid schizophrenia; J44.9 Chronic obstructive pulmonary disease, unspecified; E78.5 Hyperlipidemia, unspecified; I10 Essential (primary) hypertension; Z87.891 Personal history of nicotine dependence; Z79.899 Other long term (current) drug therapy; Z53.20 Procedure and treatment not carried out because of patient's decision for unspecified reasons
CPT/HCPCS: 36415; 93005; 80053; 82140; 82803; 84443; 85025; 81001; 87086; 71020; 70450; 99285; 96372; J2060

== ENCOUNTER 2017-04-17 13:47 | Inpatient (IN) | payer MEDICARE, OTHER ==
--- NOTE | 2017-04-17 14:22 | ED ---
General Adult HPI - General Source: patient, EMS, RN notes reviewed Mode of arrival: EMS Limitations: altered mental status <Jonelle Bowie - Last Filed: 04/17/17 19:34> <Tyshawn Silveira - Last Filed: 04/17/17 21:04> - General Chief complaint: Psychiatric Symptoms Stated complaint: AGRESSIVE Time Seen by Provider: 04/17/17 13:53 - History of Present Illness Initial comments: 71-year-old male presents to the emergency department with a chief complaint of agitation and aggression. The patient chronically suffers agitation and aggression and sent here from the residential. Patient was seen here yesterday for similar complaints and workup was negative. Patient denies any suicidal or homicidal ideation but admits to a history of psychiatric issues. He does appear agitated but denies suicidal or homicidal ideation. He is a poor historian. Patient denies any pain at this time. He denies any nausea vomiting any chest pain or abdominal pain any back pain. Patient denies any changes in urination. (Jonelle Bowie) - Related Data Home Medications Medication Instructions Recorded Confirmed lamoTRIgine [LaMICtal] 100 mg PO BID 01/15/17 04/17/17 Cranberry-Vit C Liquid 30 ml PO BID 03/12/17 04/17/17 Acetaminophen [Tylenol] 650 mg PO Q8H PRN 04/16/17 04/17/17 Atorvastatin [Lipitor] 20 mg PO HS 04/16/17 04/17/17 Ferrous Sulfate [Feosol] 325 mg PO BID 04/16/17 04/17/17 Furosemide [Lasix] 20 mg PO DAILY 04/16/17 04/17/17 HYDROcodone/APAP 5-325MG [[place] 1 tab PO Q4-6H PRN 04/16/17 04/17/17 5-325] Ipratropium-Albuterol Nebulize 3 ml INHALATION RT-Q4H PRN 04/16/17 04/17/17 [Duoneb 0.5 mg-3 mg/3 ml Soln] Ipratropium-Albuterol Nebulize 3 ml INHALATION RT-QID@07,12,16,20 04/16/1704/17 [Duoneb 0.5 mg-3 mg/3 ml Soln] Nitrofurantoin Monohyd/M-Cryst 100 mg PO BID@0800,199904/16/17 04/17/17 [Macrobid] Omeprazole [PriLOSEC] 20 mg PO DAILY 04/16/17 04/17/17 QUEtiapine [SEROquel] 50 mg PO HS@199904/16/17 04/17/17 Sucralfate [Carafate] 1 gm PO ACHS@07,11,16,20 04/16/17 04/17/17 Allergies Allergy/AdvReac Type Severity Reaction Status Date / Time No Known Allergies Allergy Verified 04/17/17 14:16 Review of Systems ROS Other: All systems not noted in ROS Statement are negative. <Jonelle Bowie - Last Filed: 04/17/17 19:34> ROS Other: All systems not noted in ROS Statement are negative. <Tyshawn Silveira - Last Filed: 04/17/17 21:04> ROS Statement: Those systems with pertinent positive or pertinent negative responses have been documented in the HPI. Past Medical History Past Medical History: No Reported History Additional Past Medical History / Comment(s): Obesity, residential resident, depression, PTSD, schizophrenia paranoid type, COPD, chronic hypoxic and hypercapnic respiratory failure, hyperlipidemia, hypertension, recent hospitalization for acute respiratory failure requiring intubation mechanical ventilation. Recent sepsis-readmission History of Any Multi-Drug Resistant Organisms: ESBL Date of last positivie culture/infection: 04/04/17 MDRO Source:: ESBL E.COLI Past Surgical History: No Surgical Hx Reported Additional Past Surgical History / Comment(s): rt knee cyst, right hand cyst Past Anesthesia/Blood Transfusion Reactions: No Reported Reaction Past Psychological History: PTSD Smoking Status: Former smoker Past Alcohol Use History: None Reported Past Drug Use History: None Reported - Past Family History Father Family Medical History: Unable to Obtain Mother Family Medical History: Unable to Obtain <Jonelle Bowie - Last Filed: 04/17/17 19:34> General Exam Limitations: altered mental status General appearance: alert, in no apparent distress ENT exam: Present: normal exam, mucous membranes moist Neck exam: Present: normal inspection. Absent: tenderness, meningismus, lymphadenopathy Respiratory exam: Present: normal lung sounds bilaterally. Absent: respiratory distress, wheezes, rales, rhonchi, stridor Cardiovascular Exam: Present: regular rate, normal rhythm, normal heart sounds. Absent: systolic murmur, diastolic murmur, rubs, gallop, clicks GI/Abdominal exam: Present: soft, normal bowel sounds. Absent: distended, tenderness, guarding, rebound, rigid Extremities exam: Present: normal inspection, full ROM, normal capillary refill. Absent: tenderness, pedal edema, joint swelling, calf tenderness Neurological exam: Present: alert Psychiatric exam: Present: agitated. Absent: homicidal ideation, suicidal ideation Skin exam: Present: warm, dry, intact, normal color. Absent: rash <Jonelle Bowie - Last Filed: 04/17/17 19:34> Medical Decision Making - Lab Data Result diagrams: 04/17/17 14:00 04/17/17 14:00 <Jonelle Bowie - Last Filed: 04/17/17 19:34> - Lab Data Result diagrams: 04/17/17 14:00 04/17/17 14:00 <Tyshawn Silveira - Last Filed: 04/17/17 21:04> - Medical Decision Making 71-year-old male presents for agitation. At this time patient is cleared from any acute medical emergencies. Lab work was reviewed. This time the patient is cleared to be evaluated by psychiatry. At this time patient was evaluated. At this time patient is pending transfer to a geriatric psychiatric facility. ( Jonelle Bowie) Laboratory studies were reviewed, patient does have elevated white blood cell count elevated platelets, this likely reactive. He has been treated for UTI. It appears as though he is failing outpatient treatment. Cultures obtained, patient is started on Rocephin. Regarding the patient's agitation and aggression, this is his second ER visit in 2 days. Psychiatry will be placed on consult for evaluation. Diagnosis: Aggression agitation, UTI failed outpatient treatment (Tyshawn Silveira) - Lab Data Lab Results 04/17/17 04/17/17 04/17/17 Range/Units 14:00 14:00 14:47 WBC 15.5 H (3.8-10.6) k/uL RBC 3.94 L (4.30-5.90) m/uL Hgb 9.7 L (13.0-17.5) gm/dL Hct 33.5 L (39.0-53.0) % MCV 85.2 (80.0-100.0) fL MCH 24.6 L (25.0-35.0) pg MCHC 28.8 L (31.0-37.0) g/dL RDW 17.0 H (11.5-15.5) % Plt Count 527 H (150-450) k/uL Neutrophils % 58 % Lymphocytes % 33 % Monocytes % 5 % Eosinophils % 1 % Basophils % 1 % Neutrophils # 9.1 H (1.3-7.7) k/uL Lymphocytes # 5.2 H (1.0-4.8) k/uL Monocytes # 0.7 (0-1.0) k/uL Eosinophils # 0.1 (0-0.7) k/uL Basophils # 0.1 (0-0.2) k/uL Hypochromasia Marked Anisocytosis Slight Sodium 139 (137-145) mmol/L Potassium 4.3 (3.5-5.1) mmol/L Chloride 101 (98-107) mmol/L Carbon Dioxide 29 (22-30) mmol/L Anion Gap 9 mmol/L BUN 10 (9-20) mg/dL Creatinine 1.00 (0.66-1.25) mg/dL Est GFR (MDRD) Af Amer >60 (>60 ml/min/1.73 sqM) Est GFR (MDRD) Non-Af >60 (>60 ml/min/1.73 sqM) Glucose 96 (74-99) mg/dL Calcium 9.2 (8.4-10.2) mg/dL Total Bilirubin 0.7 (0.2-1.3) mg/dL AST 22 (17-59) U/L ALT 35 (21-72) U/L Alkaline Phosphatase 155 H (38-126) U/L Total Protein 6.7 (6.3-8.2) g/dL Albumin 3.3 L (3.5-5.0) g/dL Urine Color Yellow Urine Appearance Clear (Clear) Urine pH 7.5 (5.0-8.0) Ur Specific [place] 1.007 (1.001-1.035) Urine Protein Negative (Negative) Urine Glucose (UA) Negative (Negative) Urine Ketones Negative (Negative) Urine Blood Negative (Negative) Urine Nitrite Negative (Negative) Urine Bilirubin Negative (Negative) Urine Urobilinogen <2.0 (<2.0) mg/dL Ur Leukocyte Esterase Small H (Negative) Urine RBC 1 (0-5) /hpf Urine WBC 15 H (0-5) /hpf Ur Squamous Epith Cells 1 (0-4) /hpf Urine Mucus Rare H (None) /hpf Urine Opiates Screen Not Detected (NotDetected) Ur Oxycodone Screen Not Detected (NotDetected) Urine Methadone Screen Not Detected (NotDetected) Ur Propoxyphene Screen Not Detected (NotDetected) Ur Barbiturates Screen Not Detected (NotDetected) U Tricyclic Antidepress Not Detected (NotDetected) Ur Phencyclidine Scrn Not Detected (NotDetected) Ur Amphetamines Screen Not Detected (NotDetected) U Methamphetamines Scrn Not Detected (NotDetected) U Benzodiazepines Scrn Detected H (NotDetected) Urine Cocaine Screen Not Detected (NotDetected) U Marijuana (THC) Screen Not Detected (NotDetected) Serum Alcohol <10 mg/dL Disposition <Jonelle Bowie - Last Filed: 04/17/17 19:34> Decision to Admit Reason: Admit from EC Decision Date: 04/17/17 Decision Time: 21:04 <Tyshawn Silveira - Last Filed: 04/17/17 21:04> Clinical Impression: Agitation, UTI (urinary tract infection) Disposition: ADMITTED IP TO THIS [facility] Condition: Stable Referrals: Reddy Freitas DO [Primary Care Provider] - 1-2 days
[2017-04-17 14:23] LABS: Anisocytosis Slight; Basophils # (A) 0.1 k/uL (0-0.2); Basophils % (A) 1 %; CH 24.2; CHCM 28.3; Eosinophils # (A) 0.1 k/uL (0-0.7); Eosinophils % (A) 1 %; HCT 33.5 % (39.0-53.0); HDW 3.14; HGB 9.7 gm/dL (13.0-17.5); Hypochromasia Marked; Luc # (Auto) 0.37; Luc % (Auto) 2; Lymphocytes # (A) 5.2 k/uL (1.0-4.8); Lymphocytes % (A) 33 %; MCH 24.6 pg (25.0-35.0); MCHC 28.8 g/dL (31.0-37.0); MCV 85.2 fL (80.0-100.0); Mean Platelet Volume 6.9; Monocytes # (A) 0.7 k/uL (0-1.0); Monocytes % (A) 5 %; Neutrophils # (A) 9.1 k/uL (1.3-7.7); Neutrophils % (A) 58 %; RBC 3.94 m/uL (4.30-5.90); WBC 15.5 k/uL (3.8-10.6); WBC (Perox) 15.28
[2017-04-17 14:43] LABS: ALT 35 U/L (21-72); AST 22 U/L (17-59); Alcohol <10 mg/dL; Alkaline Phosphatase 155 U/L (38-126); Anion Gap 9 mmol/L; Blood Urea Nitrogen 10 mg/dL (9-20); Calcium 9.2 mg/dL (8.4-10.2); Carbon Dioxide 29 mmol/L (22-30); Chloride 101 mmol/L (98-107); Glucose 96 mg/dL (74-99); Non-African American GFR(MDRD) >60 (>60 ml/min/1.73 sqM); Potassium 4.3 mmol/L (3.5-5.1); Sodium 139 mmol/L (137-145); Total Bilirubin 0.7 mg/dL (0.2-1.3); Total Protein 6.7 g/dL (6.3-8.2)
[2017-04-17 15:03] LABS: Appearance,Urine Clear (Clear); Bilirubin,Urine Negative (Negative); Glucose,Urine (UA) Negative (Negative); Ketones,Urine Negative (Negative); Leukocyte Esterase,Urine Small (Negative); Mucus,Urine Rare /hpf; Nitrite,Urine Negative (Negative); PH, Urine 7.5 (5.0-8.0); Particle Count 497; Protein,Urine Negative (Negative); RBC,Urine 1 /hpf (0-5); Specific Gravity,Urine 1.007 (1.001-1.035); Squamous Epithelial Cell,Urine 1 /hpf (0-4); UA Billing (MACRO vs. MICRO) MICRO; Urobilinogen,Urine <2.0 mg/dL (<2.0); WBC,Urine 15 /hpf (0-5)
[2017-04-17] MEDS ORDERED: LORazepam 2 MG/ML INJ IM STA ×2 (18:17→21:57)
[2017-04-17] MEDS ORDERED: ACETAMINOPHEN TAB 325 MG TAB PO PRN (21:00)
[2017-04-17] MEDS ORDERED: NALOXONE 0.4 MG/ML 1 ML VIAL IV PRN (21:00)
[2017-04-17] MEDS ORDERED: cefTRIAXone 1,000 MG VIAL (IM USE) IM STA (21:35)
[2017-04-17] MEDS: SODIUM CHLORIDE 0.9% 1,000 ML IV SCH (21:41)
[2017-04-17] MEDS ORDERED: LORazepam 2 MG/ML INJ IM PRN (22:03)
[2017-04-18] MEDS: FERROUS SULFATE 325 MG TAB PO SCH ×2 (07:42→20:13)
[2017-04-18] MEDS: lamoTRIgine 100 MG TAB PO SCH ×3 (07:42→20:13)
[2017-04-18] MEDS: FUROSEMIDE 20 MG TAB PO SCH (07:42)
[2017-04-18] MEDS: IPRATROPIUM-ALBUTEROL 3 ML NEB INHALATION SCH ×4 (08:21→21:28)
[2017-04-18] MEDS: SODIUM CHLORIDE 0.9% 1,000 ML IV SCH (08:41)
[2017-04-18] MEDS ORDERED: LORazepam 1 MG TAB PO PRN (10:13)
[2017-04-18] MEDS: HYDROcodone/APAP 5-325MG 1 EACH TAB PO PRN (10:18)
[2017-04-18] MEDS: HALOPERIDOL LACTATE 5 MG/ML 1 ML VIAL IM PRN (12:38)
[2017-04-18 12:51] LABS: Anisocytosis Slight; Basophils # (A) 0.1 k/uL (0-0.2); Basophils % (A) 1 %; CH 23.8; CHCM 27.6; Eosinophils # (A) 0.2 k/uL (0-0.7); Eosinophils % (A) 1 %; HDW 3.02; HGB 9.8 gm/dL (13.0-17.5); Hypochromasia Marked; Luc # (Auto) 0.33; Luc % (Auto) 2; Lymphocytes # (A) 3.8 k/uL (1.0-4.8); Lymphocytes % (A) 27 %; MCH 24.8 pg (25.0-35.0); MCHC 28.7 g/dL (31.0-37.0); MCV 86.2 fL (80.0-100.0); Mean Platelet Volume 7.1; Monocytes # (A) 0.8 k/uL (0-1.0); Monocytes % (A) 6 %; Neutrophils # (A) 8.9 k/uL (1.3-7.7); Neutrophils % (A) 63 %; RBC 3.94 m/uL (4.30-5.90); RDW 16.9 % (11.5-15.5); WBC 14.1 k/uL (3.8-10.6); WBC (Perox) 15.09
[2017-04-18 13:13] LABS: ALT 30 U/L (21-72); AST 22 U/L (17-59); Alkaline Phosphatase 134 U/L (38-126); Anion Gap 9 mmol/L; Blood Urea Nitrogen 10 mg/dL (9-20); Calcium 9.2 mg/dL (8.4-10.2); Carbon Dioxide 29 mmol/L (22-30); Chloride 102 mmol/L (98-107); Glucose 92 mg/dL (74-99); Non-African American GFR(MDRD) >60 (>60 ml/min/1.73 sqM); Potassium 4.5 mmol/L (3.5-5.1); Sodium 140 mmol/L (137-145); Total Protein 6.8 g/dL (6.3-8.2)
[2017-04-18] MEDS: cefTRIAXone 2,000 MG in SODIUM CHLORIDE 0.9% 100 ML IVPB SCH (15:10)
[2017-04-18] MEDS ORDERED: IPRATROPIUM-ALBUTEROL 3 ML NEB INHALATION PRN (16:26)
--- NOTE | 2017-04-18 16:55 | P.CN ---
Psychiatric Consult - . Consult date: 04/18/17 Consult:: 04/18/17 16:46 IDENTIFYING DATA: 71-year-old single male patient HPI: Patient admitted to the medical floor at [facility] with concerns of agitation. Patient was admitted from the [facility]. Keep her chart history was seen in the ER the previous stay for similar reasons. There is a petition on the chart from an RN making reference to threats of violence and per guardian's request transfer to [facility]. Patient was admitted medically due to concerns of infection. Per staff history he did present with some agitation and threatening remarks this morning and was given a dose of Haldol with significant improvement and benefit. Patient reports that he does feel better today and says he doesn't remember much about the circumstances surrounding his admission. He feels like his current medications work pretty well. PAST PSYCHIATRIC HISTORY: Patient gives a history of PTSD. Per chart there is also reported history of schizophrenia patient also relays bipolar disorder and there is no known current psychiatrist. His most recent medications are Lamictal 100 mg twice a day and Seroquel 50 mg at bedtime. PMH: Obesity, COPD, hyperlipidemia, sepsis ALLERGIES: No known ALLERGIES MEDICATIONS: Tylenol when necessary, DuoNeb, Lipitor, ceftriaxone, Feosol, Lasix , Haldol when necessary, [place] when necessary, Lamictal under milligrams twice a day, Ativan when necessary, Narcan when necessary, Seroquel CHEMICAL DEPENDENCY HISTORY: Denies, says his only vice was cigarettes FAMILY PSYCHIATRIC HISTORY: None known at this time. FAMILY CHEMICAL DEPENDENCY HISTORY: None known at this time. SOCIAL HISTORY: Has most recently been at [facility]. He has never been . No children. He did many different types of work. MENTAL STATUS EXAM: He is alert and overall cooperative with the interview. He is able to maintain alertness. He describes his mood is better. He denies any thoughts of harm to self or others. He says "just in self defense." He denies any hallucinations. He is oriented to place he says the date is either the last of March or first of April. He does not show any current agitation. IMPRESSIONS: Delirium; bipolar disorder by history; PTSD by history; rule out history of schizophrenia PLAN: Continue to treat possible medical causes of delirium including infection. Status currently improved. He doesn't Haldol when necessary ordered as needed for any agitation which was significantly beneficial earlier today. We'll maintain Lamictal and Seroquel as current. I do not see active criteria for inpatient psychiatric hospitalization at this point in time. His agitation is likely related to delirium type process. We will continue to monitor his status. After further medical stabilization would look for discharge planning back to supervised ECF setting.
--- NOTE | 2017-04-18 17:57 | HP ---
HISTORY AND PHYSICAL DATE OF SERVICE: 04/18/2017 CHIEF COMPLAINTS: Change in mental status, aggression and agitation. HISTORY OF PRESENT ILLNESS: This 71-year-old gentleman with a past medical history of multiple medical problems, including GERD, GI bleed, pneumonia, possibly ESBL E. coli, depression, PTSD, schizophrenia, being followed by Dr. Daugherty in the outpatient setting and patient was recently admitted to [facility] and was noted to have acute upper GI bleeding secondary to duodenal ulcer. The patient had acute blood-loss anemia. The patient improved significantly, but patient was in [facility] under the care of Dr. Freitas. At this time, the patient apparently had agitation, aggression and the patient is confused and the patient is taken to [facility] and admitted for further evaluation and treatment. Currently the patient is slightly better. Haldol IM has been arranged at this time. Patient denies suicidal or homicidal ideations. Patient has flight of ideas and is confused, but able to cooperate with the exam. Drug screen is negative for benzodiazepines. Serum alcohol less than 10. The patient had features of UTI. There is no history of any fever, rigors, chills at this time. No history of trauma. PAST MEDICAL HISTORY: 1. History of GI bleed. 2. History of pneumonia. 3. History ESBL E. coli. 4. Depression with PTSD. 5. Schizophrenia. 6. History of duodenal ulcer disease. MEDICATIONS PRIOR TO ADMISSION: Include home medications are: 1. Lamictal 100 mg p.o. b.i.d. 2. Carafate 1 g p.o. daily. 3. Seroquel 50 mg q.h.s. 4. Prilosec 20 mg daily. 5. Macrobid 100 mg p.o. b.i.d. 6. DuoNeb q.i.d. and p.r.n. 7. [place] 5 mg q.4 to 6 p.r.n. 8. Lasix 20 mg p.o. daily. 9. Iron sulfate 325 mg p.o. b.i.d. 10.Vitamin C 30 mL p.o. b.i.d. 11.Lipitor 20 mg q.h.s. 12.Tylenol 650 q.8 p.r.n. ALLERGIES: None. FAMILY HISTORY, SOCIAL HISTORY, REVIEW OF SYSTEMS: Could not be taken at length because the patient is slightly confused and slightly combative. Previous history of smoking per chart. PHYSICAL EXAM: Patient's pulse is 109, blood pressure 144/67, respirations 18, temperature 97.2 , pulse ox 94% on room air. HEENT: Conjunctivae normal. Oral mucosa moist. NECK: No jugular venous distention. No carotid bruits. No lymph node enlargement. CARDIOVASCULAR: S1, S2 muffled. No S3. No S4. RESPIRATORY: Breath sounds diminished in the bases. A few scattered rhonchi. No crackles. ABDOMEN: Soft, nontender. No mass palpable. LEGS: No edema no swelling. NERVOUS SYSTEM: Higher functions as mentioned. Moves all 4 limbs. No focal motor or sensory deficits. LYMPHATICS: No lymphadenopathy in neck or axillae. SKIN: No ulcers rash or bleeding. LAB STUDIES: WBC 14.1, hemoglobin is 9.8. Albumin is 3.3. UA noted. ASSESSMENT: 1. Acute urinary tract infection with possible sepsis present on admission. 2. Acute delirium secondary to sepsis, agitation and aggression. 3. History of recent acute upper gastrointestinal bleeding secondary to duodenal ulcer and acute blood loss anemia, status post esophagogastroduodenoscopy. 4. Chronic hypoxic respiratory failure. 5. History pneumonia. 6. History of gastroesophageal reflux disease. 7. History extended-spectrum beta lactamase Escherichia coli. 8. Schizophrenia, paranoid type. 9. History of depression and posttraumatic stress disorder. RECOMMENDATIONS AND DISCUSSION: Continue current medications. Continue monitoring and symptomatic treatment. Otherwise at this time, will initiate broad-spectrum antibiotics. However, I would also recommend IV fluids as well as a serum lactic acid. Otherwise, peripheral pulses are within normal limits. Repeat labs. White count is 14.1. Continue with the rest of the medications. Also recommend DVT prophylaxis. Prognosis guarded because of multiple complex medical issues. Further recommendations to follow. A copy of the dictation will be forwarded to Dr. Daugherty as well as Dr. Freitas. MMVERONICAL / PENELOPEN: [id number] / MTDTerry
[2017-04-18] MEDS ORDERED: QUEtiapine 50 MG TAB PO SCH (20:00)
[2017-04-18] MEDS: NITROFURANTOIN MONOHYD/M-CRYST 100 MG CAP PO SCH (20:13)
[2017-04-18] MEDS: SUCRALFATE 1 GM TAB PO SCH (20:13)
[2017-04-18] MEDS: ATORVASTATIN 20 MG TAB PO SCH (20:13)
[2017-04-18] MEDS: HEPARIN SODIUM,PORCINE 5,000 UNIT/ML 1 ML VIAL SQ SCH (20:13)
[2017-04-19 07:02] LABS: Anisocytosis Slight; Basophils # (A) 0.1 k/uL (0-0.2); Basophils % (A) 1 %; CH 23.7; CHCM 27.4; Eosinophils # (A) 0.2 k/uL (0-0.7); Eosinophils % (A) 2 %; HCT 32.2 % (39.0-53.0); HDW 2.98; HGB 9.2 gm/dL (13.0-17.5); Hypochromasia Marked; Luc # (Auto) 0.27; Luc % (Auto) 2; Lymphocytes # (A) 3.8 k/uL (1.0-4.8); Lymphocytes % (A) 35 %; MCH 24.6 pg (25.0-35.0); MCHC 28.4 g/dL (31.0-37.0); MCV 86.4 fL (80.0-100.0); Mean Platelet Volume 6.8; Monocytes # (A) 0.7 k/uL (0-1.0); Monocytes % (A) 6 %; Neutrophils % (A) 54 %; RBC 3.73 m/uL (4.30-5.90); RDW 16.9 % (11.5-15.5); WBC (Perox) 11.26
[2017-04-19 07:22] LABS: Anion Gap 9 mmol/L; Blood Urea Nitrogen 11 mg/dL (9-20); Calcium 8.8 mg/dL (8.4-10.2); Carbon Dioxide 27 mmol/L (22-30); Chloride 103 mmol/L (98-107); Glucose 115 mg/dL (74-99); Non-African American GFR(MDRD) >60 (>60 ml/min/1.73 sqM); Potassium 4.2 mmol/L (3.5-5.1); Sodium 139 mmol/L (137-145)
[2017-04-19] MEDS: cefTRIAXone 2,000 MG in SODIUM CHLORIDE 0.9% 100 ML IVPB SCH (07:35)
[2017-04-19] MEDS: NITROFURANTOIN MONOHYD/M-CRYST 100 MG CAP PO SCH ×2 (07:36→20:54)
[2017-04-19] MEDS: SUCRALFATE 1 GM TAB PO SCH ×4 (07:36→20:54)
[2017-04-19] MEDS: PANTOPRAZOLE 40 MG TABLET PO SCH (07:36)
[2017-04-19] MEDS: lamoTRIgine 100 MG TAB PO SCH ×2 (07:37→20:54)
[2017-04-19] MEDS: HEPARIN SODIUM,PORCINE 5,000 UNIT/ML 1 ML VIAL SQ SCH ×2 (07:37→20:53)
[2017-04-19] MEDS: FERROUS SULFATE 325 MG TAB PO SCH ×2 (07:37→20:54)
[2017-04-19] MEDS: FUROSEMIDE 20 MG TAB PO SCH (07:37)
[2017-04-19] MEDS: IPRATROPIUM-ALBUTEROL 3 ML NEB INHALATION SCH ×4 (08:11→19:49)
[2017-04-19] MEDS: HALOPERIDOL LACTATE 5 MG/ML 1 ML VIAL IM PRN (11:10)
[2017-04-19] MEDS: HYDROcodone/APAP 5-325MG 1 EACH TAB PO PRN (11:12)
[2017-04-19] MEDS: SODIUM CHLORIDE 0.9% 1,000 ML IV SCH ×2 (12:16→16:53)
--- NOTE | 2017-04-19 18:18 | P.PN ---
Progress Note - Text Interval history: Patient is seen today in psychiatric follow-up. Per staff he had an agitated episode at about noon today. He was given Haldol with benefit but then became agitated again about an hour later. Currently he is seen in his room and presents as pleasant and cooperative with the interview. He does make reference to his mood not being good and makes reference to having had symptoms related to his traumatic war experience. He had a visit earlier from his brother as well as someone else. Mental status exam: He is alert and cooperative with the interview. His speech is fluent, not rapid or pressured. His mood he described as not good. He denies any thoughts of harm to self or others. He does not currently exhibit any agitation. Plan: Will adjust the dose of Seroquel to 25 mg in the a.m. and 75 mg at bedtime to see if this can help further with his episodes of agitation as well as with components of mood. Psychiatry to continue to evaluate his response to medical treatment in terms of delirium and also psychiatry to monitor and assess any need for inpatient psychiatric hospitalization if his symptoms do not further stabilize with further medical treatment.
[2017-04-19] MEDS: ATORVASTATIN 20 MG TAB PO SCH (20:54)
[2017-04-19] MEDS: QUEtiapine 25 MG TAB PO SCH (20:57)
[2017-04-20] MEDS: SODIUM CHLORIDE 0.9% 1,000 ML IV SCH ×2 (05:54→17:24)
[2017-04-20 07:39] LABS: Anion Gap 8 mmol/L; Blood Urea Nitrogen 11 mg/dL (9-20); Calcium 8.9 mg/dL (8.4-10.2); Carbon Dioxide 28 mmol/L (22-30); Chloride 103 mmol/L (98-107); Glucose 97 mg/dL (74-99); Non-African American GFR(MDRD) 58 (>60 ml/min/1.73 sqM); Potassium 4.5 mmol/L (3.5-5.1); Sodium 139 mmol/L (137-145)
[2017-04-20] MEDS: IPRATROPIUM-ALBUTEROL 3 ML NEB INHALATION SCH ×4 (07:39→19:59)
[2017-04-20 07:46] LABS: Anisocytosis Slight; Basophils # (A) 0.1 k/uL (0-0.2); Basophils % (A) 1 %; CH 23.8; CHCM 27.3; Eosinophils # (A) 0.3 k/uL (0-0.7); Eosinophils % (A) 2 %; HCT 33.8 % (39.0-53.0); HDW 2.98; HGB 9.4 gm/dL (13.0-17.5); Hypochromasia Marked; Luc # (Auto) 0.28; Luc % (Auto) 2; Lymphocytes # (A) 4.5 k/uL (1.0-4.8); Lymphocytes % (A) 33 %; MCH 24.2 pg (25.0-35.0); MCHC 27.7 g/dL (31.0-37.0); MCV 87.1 fL (80.0-100.0); Mean Platelet Volume 6.8; Monocytes # (A) 0.8 k/uL (0-1.0); Monocytes % (A) 6 %; Neutrophils # (A) 7.7 k/uL (1.3-7.7); Neutrophils % (A) 57 %; RBC 3.88 m/uL (4.30-5.90); RDW 17.1 % (11.5-15.5); WBC 13.6 k/uL (3.8-10.6); WBC (Perox) 14.38
[2017-04-20] MEDS: NITROFURANTOIN MONOHYD/M-CRYST 100 MG CAP PO SCH ×2 (09:32→20:39)
[2017-04-20] MEDS: cefTRIAXone 2,000 MG in SODIUM CHLORIDE 0.9% 100 ML IVPB SCH ×2 (09:32→09:41)
[2017-04-20] MEDS: PANTOPRAZOLE 40 MG TABLET PO SCH (09:32)
[2017-04-20] MEDS: SUCRALFATE 1 GM TAB PO SCH ×4 (09:32→20:39)
[2017-04-20] MEDS: HEPARIN SODIUM,PORCINE 5,000 UNIT/ML 1 ML VIAL SQ SCH ×2 (09:33→20:40)
[2017-04-20] MEDS: FUROSEMIDE 20 MG TAB PO SCH (09:33)
[2017-04-20] MEDS: FERROUS SULFATE 325 MG TAB PO SCH ×2 (09:33→20:40)
[2017-04-20] MEDS: lamoTRIgine 100 MG TAB PO SCH ×2 (09:33→20:41)
[2017-04-20] MEDS: QUEtiapine 25 MG TAB PO SCH ×2 (09:34→20:40)
[2017-04-20] MEDS: ATORVASTATIN 20 MG TAB PO SCH (20:39)
[2017-04-20 21:11] LABS: Appearance,Urine Clear (Clear); Bacteria,Urine Rare /hpf; Bilirubin,Urine Negative (Negative); Glucose,Urine (UA) Negative (Negative); Ketones,Urine Negative (Negative); Leukocyte Esterase,Urine Small (Negative); Nitrite,Urine Negative (Negative); Particle Count 308; Protein,Urine Negative (Negative); RBC,Urine <1 /hpf (0-5); Specific Gravity,Urine 1.004 (1.001-1.035); UA Billing (MACRO vs. MICRO) MICRO; Urobilinogen,Urine <2.0 mg/dL (<2.0); WBC,Urine 5 /hpf (0-5)
--- NOTE | 2017-04-20 21:11 | PN ---
PROGRESS NOTE DATE OF SERVICE: 04/20/2007 This 71-year-old gentleman who was admitted with acute urinary tract infection with sepsis is being closely monitored. The sensorium is fluctuating and the patient much more cooperative at this time. The urine culture showed enterococcus faecium and VRE as well as MRSA. EXAM: Alert and oriented times two. Pulse is 118, blood pressure 147/80, respiratory rate 22, temperature 98 degrees, pulse ox 93% on room air. HEENT: Conjunctivae normal. Neck: No jugular venous distention. Cardiovascular: S1, S2 muffled. Respiratory: Breath sounds diminished at the bases. A few scattered rhonchi. No crackles. Abdomen is soft. No masses palpable. Legs: No edema. No swelling. Central nervous system: No focal deficits. LABS: WBC 7.6, hemoglobin 9.5. ASSESSMENT: 1. Acute urinary tract infection with MRSA and enterococcus faecium. 2. Vancomycin resistant Enterococcus with sepsis. 3. Acute delirium secondary to sepsis, agitation and aggression. 4. History of recent upper gastrointestinal bleed secondary to duodenal ulcer. 5. Chronic hypoxic respiratory failure. RECOMMENDATIONS AND DISCUSSION: 1. Recommend to continue current management. 2. Continue with current medications. 3. Continue with antibiotics. 4. Continue symptomatic treatment. 5. Infectious disease evaluation. Guarded prognosis because of multiple complex medical issues. Further recommendations to follow. MMODL / IJN: [id number] /
--- NOTE | 2017-04-20 21:32 | PN ---
PROGRESS NOTE DATE OF SERVICE: 04/19/2017 This 71-year-old gentleman admitted with acute delirium also had UTI. No chest pain. No palpitations. No fever. PHYSICAL EXAMINATION: Patient is confused. Pulse is 108, blood pressure 122/61, respiration 17, temperature 97.9, pulse ox 94% on room air. HEENT: Conjunctivae normal. NECK: No jugular venous distention. CARDIOVASCULAR SYSTEM: S1, S2 muffled. RESPIRATORY SYSTEM: Breath sounds diminished at the bases. ABDOMEN: Soft, nontender. NERVOUS SYSTEM: No focal deficit. LABS: WBC 11. Hemoglobin is 9.2. ASSESSMENT: 1. Acute urinary tract infection with possible sepsis, present on admission. 2. Acute delirium secondary to sepsis, agitation and aggression. 3. History of recent acute upper gastrointestinal bleeding. RECOMMENDATIONS AND DISCUSSION: I recommend to continue current medication, continue symptomatic treatment. Closely monitor. Continue with the antibiotics. Otherwise, psychiatric evaluation. Further recommendations to follow. MMVERONICAL / PENELOPEN: [id number] /
--- NOTE | 2017-04-20 22:16 | P.PN ---
Progress Note - Text Vital Signs Temp 98.3 F 04/20/17 21:50 Pulse 113 H 04/20/17 21:50 Resp 22 04/20/17 21:50 BP 151/89 04/20/17 21:50 Pulse Ox 94 L 04/20/17 21:50 Intake & Output 04/20/17 04/20/17 04/21/17 06:59 18:59 06:59 Intake Total 880 Output Total 3100 Balance 880 -3100 Weight 110.223 kg Intake: Oral 880 Output: Urine 3100 Other: Voiding Method Urinal Urinal Diaper Diaper Incontinent Incontinent # Voids 1 3 Interval History: Patient interviewed at bedside, patient is dismissive and overall uncooperative with interview despite two attempts today. Per staff, patient is doing much better and has not had any recent aggressive episodes. Per staff, patient has been socially respectful and pleasant. Appearance: alert, well groomed, appears stated age Behavior: no psychomotor agitation or psychomotor retardation, no abnormal movements, fair eye contact Attitude: uncooperative Speech: normal rate, rhythm, fluency, articulation; volume; and prosody; primary language: Setsw[place] Mood: irritable Affect: congruent, reactive Insight: poor Judgment: poor Plan: -continue current regimen -discontinue all Ativan orders, Ativan is contraindicated in delirium with the exception of alcohol/benzo withdrawal -patient does not meet criteria for inpatient psychiatric admission -patient would benefit from OP follow up with both geriatric and geriatric psychiatry -psychiatry will follow
--- NOTE | 2017-04-21 06:30 | CONS ---
CONSULTATION DATE OF SERVICE: 04/20/2017. REASON FOR CONSULTATION: VRE and MRSA urinary tract infection. HISTORY OF PRESENT ILLNESS: The patient is a 71-year-old male who was recently admitted to this facility for an upper GI bleed secondary to bleeding duodenal ulcer. The patient was stabilized and subsequently discharged to [facility] for rehabilitation. The patient has been sent back to the ER 04/17/2017 with chief complaints of agitation, aggression, confusion. The patient was evaluated by the ER physician on arrival to the ER. The patient did not have any fever. Highest temperature has been 99.3. Blood work did show the patient did have elevated white count of 15.5. His UA was slightly positive with small leukocyte esterases, 15 WBC. However the urine culture now showing VRE and MRSA. The VRE is 50 to 100,000 colonies and MRSA is 20 to 49,000 colonies. The patient has been on Rocephin. Macrobid was added and I was asked to see the patient for further recommendation regarding antibiotic therapy. The patient is not a very good historian. When I asked him specifically the patient says he is urinating fine with no burning or any difficulty urination. No blood in the urine. The patient denies any chest pain. No shortness of breath or cough. No abdominal pain. No nausea, vomiting and no diarrhea. REVIEW OF SYSTEMS: CONSTITUTIONAL: Positive for weakness. No high-grade fever. EYES: No complaint. ENT: No complaint. RESPIRATORY: No complaint. CARDIOVASCULAR: No complaint. GENITOURINARY: As per HPI. GASTROINTESTINAL: No complaint. MUSCULOSKELETAL: No complaint. INTEGUMENTARY: No complaint. PSYCHOLOGICAL: As per HPI. NEUROLOGIC: No complaint. PAST MEDICAL HISTORY: Significant for GI bleed, pneumonia. The patient did have previous ESBL E coli urinary tract infection. PTSD. Schizophrenia, peptic ulcer disease. PAST SURGICAL HISTORY: EGD, right knee and right hand cyst removal. SOCIAL HISTORY: Remote history of smoking. No drinking or drug use. FAMILY HISTORY: No pertinent findings were noticed. ALLERGIES: No known drug allergies. MEDICATIONS: The patient is currently on Tylenol, [place], DuoNeb, Lipitor, iron sulfate, Lasix, Haldol, heparin, Lamictal, Ativan, Narcan, Macrobid, Protonix, Seroquel, Carafate and Rocephin. EXAMINATION: Blood pressure is 152/82 with a pulse of 111. Temperature 97.9. He is 92% on room air. General description is a elderly male lying in bed, in no distress. No tachypnea or accessory muscle of respiration use. HEENT: Shows pallor. No scleral icterus. Oral mucosa is dry. NECK: Trachea central. No thyromegaly. LUNGS: Unlabored breathing. Clear to auscultation anteriorly. No wheeze or crackle. HEART: S1, S2. Regular rate and rhythm. ABDOMEN: Soft, no tenderness. No guarding or rigidity. EXTREMITIES: No edema feet. SKIN: No rash or mass palpable. NEUROLOGICAL: Patient is awake, alert, oriented x2. Mood and affect normal. LABS: Hemoglobin is 9.4, white count 13.6, admission white count was 15.5. BUN of 11, creatinine 1.23. Electrolytes have been normal. Urine was very limited but mildly positive with urine culture as mentioned above. DIAGNOSTIC IMPRESSION AND PLAN: Patient admitted to the hospital with agitation and aggression in patient who does have underlying schizophrenia, could be related to underlying psychologic disorder and mild urinary tract infection not entirely excluded in a patient who is growing VRE. The MRSA is local encounter. PLAN: 1. We will recheck another UA and cultures as the patient did not have significant urinary symptoms to make sure we are not dealing with colonization or contamination. 2. Macrobid will be continued. However, discontinue the Rocephin. 3. Depending upon his clinical response will repeat the urine culture, will determine further antibiotic therapy. Thank you for this consultation. Will follow this patient along with you. MMODL / IJN: [id number] /
[2017-04-21] MEDS: IPRATROPIUM-ALBUTEROL 3 ML NEB INHALATION SCH ×4 (07:31→20:07)
[2017-04-21] MEDS: SODIUM CHLORIDE 0.9% 1,000 ML IV SCH ×2 (07:42→16:54)
[2017-04-21] MEDS: NITROFURANTOIN MONOHYD/M-CRYST 100 MG CAP PO SCH ×2 (07:44→21:14)
[2017-04-21 07:45] LABS: Anisocytosis Slight; Basophils # (A) 0.1 k/uL (0-0.2); Basophils % (A) 1 %; CH 23.8; CHCM 27.6; Eosinophils # (A) 0.3 k/uL (0-0.7); Eosinophils % (A) 2 %; HCT 32.9 % (39.0-53.0); HDW 2.98; HGB 9.4 gm/dL (13.0-17.5); Hypochromasia Marked; Luc # (Auto) 0.25; Luc % (Auto) 2; Lymphocytes # (A) 3.1 k/uL (1.0-4.8); Lymphocytes % (A) 29 %; MCH 24.7 pg (25.0-35.0); MCHC 28.6 g/dL (31.0-37.0); MCV 86.4 fL (80.0-100.0); Monocytes # (A) 0.6 k/uL (0-1.0); Monocytes % (A) 6 %; Neutrophils # (A) 6.6 k/uL (1.3-7.7); Neutrophils % (A) 61 %; RBC 3.81 m/uL (4.30-5.90); RDW 16.9 % (11.5-15.5); WBC 10.8 k/uL (3.8-10.6)
[2017-04-21] MEDS: lamoTRIgine 100 MG TAB PO SCH ×2 (07:45→21:15)
[2017-04-21] MEDS: SUCRALFATE 1 GM TAB PO SCH ×4 (07:45→21:14)
[2017-04-21] MEDS: PANTOPRAZOLE 40 MG TABLET PO SCH (07:45)
[2017-04-21] MEDS: FERROUS SULFATE 325 MG TAB PO SCH ×2 (07:46→21:15)
[2017-04-21] MEDS: HEPARIN SODIUM,PORCINE 5,000 UNIT/ML 1 ML VIAL SQ SCH ×2 (07:46→21:16)
[2017-04-21] MEDS: FUROSEMIDE 20 MG TAB PO SCH (07:46)
[2017-04-21] MEDS: QUEtiapine 25 MG TAB PO SCH ×2 (07:47→21:15)
[2017-04-21 08:06] LABS: Anion Gap 9 mmol/L; Blood Urea Nitrogen 14 mg/dL (9-20); Calcium 9.4 mg/dL (8.4-10.2); Carbon Dioxide 30 mmol/L (22-30); Chloride 100 mmol/L (98-107); Glucose 96 mg/dL (74-99); Non-African American GFR(MDRD) >60 (>60 ml/min/1.73 sqM); Potassium 4.2 mmol/L (3.5-5.1); Sodium 139 mmol/L (137-145)
--- NOTE | 2017-04-21 08:16 | CDI ---
In responding to this query, please exercise your independent professional judgment. The [facility] Coding Staff and Clinical Documentation Specialists appreciate your assistance in clarifying documentation, maintaining compliance with coding guidelines, accurately documenting patients condition and capturing severity of illness. The fact that a question is asked does not imply that any particular answer is desired or expected. Communication forms are a method of clarifying documentation and are not made part of the Legal Health Record. Thank you in advance for your clarification. Last Revision, May 2015 Trixie Jameson [address] [place] [address] Documentation Clarification Form Date: 04/21/2017 7:57:00 AM From: Samia Spaulding RN, CDS Admit Date: 04/17/2017 9:00:00 PM Patient Name: Horacio Torres Visit Number: [id number] Dr. María Elena Curry, 71 year old patient presented with complaints of agitation and aggression. He was admitted for Acute UTI with MRSA and Enterococcus faecium, VRE with Sepsis and Acute delirium secondary to Sepsis. The patient has a past history of schizophrenia, paranoid type, PTSD History/Risk factors: Recent sepsis, recent ESBL E. coli, Schizophrenia, paranoid type, PTSD, depression Clinical Indicators: Labs: 2/4 SIRS Criteria: WBC 15.5-14.1-11.0-13.6 HR range 104-113 Admit VS: 97.2 108 20 122/70 96ra Treatment: ID consult, Psych consult, IV Rocephin, Macrobid, PRN Haldol given and04/19 In your professional opinion, can you please clarify the specific type of encephalopathy, if known? Metabolic Encephalopathy Septic Encephalopathy Toxic Encephalopathy Other, please specify Unable to determine Please document in your progress notes and discharge summary in order to capture severity of illness and risk of mortality. Include clinical findings that support your diagnosis. FYI: Press F11 to launch patient chart. Thank you. OMAR
[2017-04-21] MEDS ORDERED: HALOPERIDOL 1 MG TAB PO SCH (11:00)
[2017-04-21] MEDS: HYDROcodone/APAP 5-325MG 1 EACH TAB PO PRN ×2 (12:22→21:25)
--- NOTE | 2017-04-21 17:57 | PN ---
PROGRESS NOTE DATE OF SERVICE: 04/21/2017 This 71-year-old gentleman admitted with acute UTI, also Enterococcus faecium, which is VRE as well as MRSA grown from the culture. No chest pain. No palpitations. No fever. The patient is slightly confused. Condition is slightly better. EXAM: Alert and oriented x2. Pulse is 102, blood pressure 140/72, respirations 18, temperature is 97.4, pulse ox is 90% on room air. HEENT: Conjunctivae normal. NECK: No jugular venous distention. CARDIOVASCULAR: S1, S2 muffled. RESPIRATORY: Breath sounds diminished in the bases. A few scattered rhonchi and crackles. ABDOMEN: Soft, nontender. LEGS: No edema. No swelling. NERVOUS SYSTEM: No focal deficits. LABS: At this time show WBC 10.8, hemoglobin is 9.4. ASSESSMENT: 1. Acute urinary tract infection with possibly vancomycin-resistant Enterococcus with Enterococcus faecium with possible sepsis. 2. Acute delirium secondary to sepsis, agitation . 3. History of recent upper gastrointestinal bleed secondary to duodenal ulcer. 4. Chronic hypoxic respiratory failure. 5. Change in mental status, possible metabolic encephalopathy. RECOMMENDATIONS AND DISCUSSION: Recommend to continue current medications. Continue with symptomatic treatment. Otherwise at this time, continue to monitor. Closely follow. Guarded prognosis. Further recommendations to follow. A psychiatric consultation will be done. BAR / PENELOPEN: [id number] / MTDD
--- NOTE | 2017-04-21 18:53 | P.PN ---
Progress Note - Text Vital Signs Temp 97.2 F L 04/21/17 15:00 Pulse 105 H 04/21/17 16:00 Resp 18 04/21/17 16:00 BP 149/79 04/21/17 15:00 Pulse Ox 95 04/21/17 15:00 Interval History: Patient interviewed at bedside and again is unhappy to see to a psychiatrist and immediately tells me to leave (again). He denies thoughts of harming himself or others. H e denies any recent auditory or visual hallucinations. Per staff, patient has been more resistant to hospital care today than yesterday. He continues to be vulgar with certain staff and has a fluctuating course of mental status throughout the day. Mental Status Exam: Appearance: alert, well groomed, appears stated age Behavior: psychomotor agitation+ fair eye contact Attitude: uncooperative Speech: normal rate, rhythm, fluency, articulation; volume; and prosody choppy; primary language: Chinese Mood: irritable Affect: congruent, reactive Insight: poor Judgment: poor Recommendations: * discontinue Haldol 1-mg PO BID * discontinue Ativan 1-mg PO TID PRN * start Haldol 2-mg PO qAM + 2-mg PO QHS * start Haldol 0.5-mg PO qLunch PC * continue Haldol 5-mg IM q6HRS PRN, if patient does not require PRN injection over the next 48 hours will discontinue * continue Ativan 1-mg IM TID PRN (last resort), if patient does not require PRN injection over the next 48 hours will discontinue * discontinue Seroquel 25-mg PO qAM, continue Seroquel 50-mg 75-mg PO qHS * 12-lead EKG ordered to establish an updated QTc * * patient does not meet criteria for inpatient psychiatric admission * Psychiatry will follow ~ Jonathan Williamson DO
[2017-04-21] MEDS: ATORVASTATIN 20 MG TAB PO SCH (21:15)
[2017-04-21] MEDS: HALOPERIDOL 2 MG TAB PO SCH (21:15)
--- NOTE | 2017-04-21 22:48 | PN ---
PROGRESS NOTE DATE OF SERVICE: 04/21/2017. REASON FOR FOLLOWUP: Urinary tract infection. INTERVAL HISTORY: The patient is afebrile. He is breathing comfortably. Denies any chest pain, shortness of breath or cough. No abdominal pain and no urinary symptoms. EXAMINATION: Blood pressure 149/79 with a pulse of 105, temperature of 97.2. He is 95% on room air. GENERAL DESCRIPTION: An elderly male lying in bed in no distress. RESPIRATORY SYSTEM: Unlabored breathing. Clear to auscultation anteriorly. HEART: S1, S2. Regular rate and rhythm. ABDOMEN: Soft. No tenderness. LABS: White count down to 10.8. BUN of 14, creatinine 1.14. Repeat urine is not significantly positive. DIAGNOSTIC IMPRESSION AND PLAN: Patient with a mild urinary tract infection, urine with vancomycin-resistant Enterococcus and methicillin-resistant Staphylococcus aureus. Both are sensitive to nitrofurantoin that will be continued. Follow up in a week. Continue supportive care. MMODL / IJN: [id number] /
[2017-04-22] MEDS: SODIUM CHLORIDE 0.9% 1,000 ML IV SCH (07:36)
[2017-04-22] MEDS: SUCRALFATE 1 GM TAB PO SCH ×5 (07:38→21:04)
[2017-04-22] MEDS: PANTOPRAZOLE 40 MG TABLET PO SCH (07:38)
[2017-04-22 07:46] LABS: Anion Gap 10 mmol/L; Blood Urea Nitrogen 17 mg/dL (9-20); Calcium 9.4 mg/dL (8.4-10.2); Carbon Dioxide 28 mmol/L (22-30); Chloride 100 mmol/L (98-107); Glucose 130 mg/dL (74-99); Non-African American GFR(MDRD) >60 (>60 ml/min/1.73 sqM); Potassium 4.2 mmol/L (3.5-5.1); Sodium 138 mmol/L (137-145)
[2017-04-22 07:55] LABS: Anisocytosis Slight; Basophils # (A) 0.1 k/uL (0-0.2); Basophils % (A) 1 %; CH 24.5; CHCM 28.9; Eosinophils # (A) 0.3 k/uL (0-0.7); Eosinophils % (A) 3 %; HDW 2.98; HGB 9.2 gm/dL (13.0-17.5); Hypochromasia Marked; Luc % (Auto) 2; Lymphocytes # (A) 3.2 k/uL (1.0-4.8); Lymphocytes % (A) 31 %; MCH 24.5 pg (25.0-35.0); MCHC 28.9 g/dL (31.0-37.0); MCV 84.9 fL (80.0-100.0); Mean Platelet Volume 7.5; Monocytes # (A) 0.7 k/uL (0-1.0); Monocytes % (A) 6 %; Neutrophils # (A) 5.9 k/uL (1.3-7.7); Neutrophils % (A) 57 %; RBC 3.76 m/uL (4.30-5.90); WBC 10.3 k/uL (3.8-10.6)
[2017-04-22] MEDS: IPRATROPIUM-ALBUTEROL 3 ML NEB INHALATION SCH ×4 (08:22→19:28)
[2017-04-22] MEDS: FERROUS SULFATE 325 MG TAB PO SCH ×2 (09:09→20:44)
[2017-04-22] MEDS: NITROFURANTOIN MONOHYD/M-CRYST 100 MG CAP PO SCH ×2 (09:10→20:44)
[2017-04-22] MEDS: HEPARIN SODIUM,PORCINE 5,000 UNIT/ML 1 ML VIAL SQ SCH ×4 (09:10→21:03)
[2017-04-22] MEDS: FUROSEMIDE 20 MG TAB PO SCH (09:10)
[2017-04-22] MEDS: HALOPERIDOL 2 MG TAB PO SCH ×2 (09:10→20:45)
[2017-04-22] MEDS: lamoTRIgine 100 MG TAB PO SCH ×2 (09:10→20:45)
[2017-04-22] MEDS: HALOPERIDOL 0.5 MG TAB PO SCH (12:41)
[2017-04-22] MEDS: HYDROcodone/APAP 5-325MG 1 EACH TAB PO PRN (17:23)
--- NOTE | 2017-04-22 18:49 | PN ---
PROGRESS NOTE DATE OF SERVICE: 04/22/2017 INTERVAL HISTORY: This 71-year-old gentleman admitted with UTI, had VRE and as well as MRSA grown from the urine culture. Patient on empiric antibiotics. Dr. Altman is recommending Macrobid as an outpatient. No chest pain. No palpitations. No fever. PT/OT are evaluating the patient. social worker health services and vocational case manager is also working towards placement also. Please note the patient has multiple psychiatric issues. PHYSICAL EXAMINATION: On exam pulse is 116, blood pressure 141/76, respiratory 22, temperature 97.2, pulse ox 97% on room air. HEENT: Conjunctivae normal. Neck: No jugular venous distention. Cardiovascular: S1, S2 muffled. Respiratory: Breath sounds diminished at the bases. A few scattered rhonchi. No crackles. Abdomen is soft. Nontender. Legs are no edema. No swelling. Central nervous system: No focal deficits. LABORATORY DATA: WBC 10.3, hemoglobin 9.2. ASSESSMENT: 1. Acute urinary tract infection with possibly Vancomycin resistant enterococcus and well as enterococcus faecium with possible sepsis. 2. Methicillin-resistant Staphylococcus aureus from the urine. 3. Acute delirium secondary to sepsis agitation. 4. Possible acute metabolic encephalopathy secondary to sepsis. 5. History of recent upper gastrointestinal bleed secondary to duodenal ulcer. 6. Chronic hypoxic respiratory failure. 7. Change in mental status, possible metabolic encephalopathy. RECOMMENDATIONS AND DISCUSSION: Recommend to continue current medications, management and symptomatic treatment. Monitor closely. Continue the antibiotics. Closely follow. Guarded prognosis. Further recommendations to follow. MMODL / IJN: [id number] /
--- NOTE | 2017-04-22 20:09 | P.PN ---
Progress Note - Text Progress Note Date: 04/29/17 Vital Signs Temp 97.3 F L 04/22/17 15:00 Pulse 110 H 04/22/17 15:00 Resp 20 04/21/17 21:36 BP 135/91 04/22/17 15:00 Pulse Ox 96 04/22/17 15:00 Intake & Output 04/22/17 04/22/17 04/23/17 06:59 18:59 06:59 Intake Total 1250 Output Total 1200 Balance 1250 -1200 Intake: Oral 1250 Output: Urine 1200 Other: Voiding Method Urinal Urinal # Voids 2 Interval History: Patient is his usual irritable self today. He states that he never asked to see a psychiatrist and asks me to leave. Interview terminate. Per staff, patient continues to have waxing and waning course. There is little documentation on his behavioral outbursts at this time so it hard to telll if patient is improving or if episodes being reported less frequently. Staff encouraged always document all episodes of inappropriate behavior. Mental Status Exam: Appearance: alert, hygiene fair, appears stated age Behavior: psychomotor agitation+ fair eye contact Attitude: uncooperative Speech: normal rate, rhythm, fluency, articulation; volume; and prosody choppy; primary language: Albanian Mood: irritable Affect: congruent, reactive Insight: poor Judgment: poor Plan: * continue current regimen * 12-lead EKG ordered to establish an updated QTc * * patient does not meet criteria for inpatient psychiatric admission * Psychiatry will follow ~ Jonathan Williamson DO
--- NOTE | 2017-04-22 20:28 | PN ---
PROGRESS NOTE DATE OF SERVICE: 04/22/2017 REASON FOR FOLLOWUP: Urinary tract infection. INTERVAL HISTORY: The patient is afebrile. The patient remains to be very agitated this morning, yelling at the staff or answer any questions, limiting the history. EXAMINATION: Blood pressure 135/91 with a pulse of 110, temperature 97.3. He is 96% on room air. GENERAL DESCRIPTION: An elderly male lying in bed in no distress. He has refused further examination. LABS: Hemoglobin is 9.2, white count normalized to 10.3. BUN of 17, creatinine 1.15. DIAGNOSTIC IMPRESSION AND PLAN: Patient with urine culture positive for vancomycin-resistant Enterococcus and methicillin-resistant Staphylococcus aureus with a question of possible contamination or mild urinary tract infection. He will continue on oral Macrobid for another 5 to 7 days. Continue supportive care. MMODL / IJN: [id number] / MTDTerry
[2017-04-22] MEDS: QUEtiapine 25 MG TAB PO SCH (20:44)
[2017-04-22] MEDS: ATORVASTATIN 20 MG TAB PO SCH (20:45)
[2017-04-23] MEDS: SODIUM CHLORIDE 0.9% 1,000 ML IV SCH ×2 (04:18→11:06)
[2017-04-23] MEDS: IPRATROPIUM-ALBUTEROL 3 ML NEB INHALATION SCH ×4 (07:11→19:00)
[2017-04-23 07:37] LABS: Anisocytosis Slight; Basophils # (A) 0.1 k/uL (0-0.2); Basophils % (A) 1 %; CH 23.8; CHCM 27.6; Eosinophils # (A) 0.3 k/uL (0-0.7); Eosinophils % (A) 3 %; HCT 32.9 % (39.0-53.0); HDW 2.92; HGB 9.4 gm/dL (13.0-17.5); Hypochromasia Marked; Luc % (Auto) 3; Lymphocytes # (A) 3.1 k/uL (1.0-4.8); Lymphocytes % (A) 29 %; MCH 24.8 pg (25.0-35.0); MCHC 28.7 g/dL (31.0-37.0); MCV 86.3 fL (80.0-100.0); Mean Platelet Volume 7.1; Monocytes # (A) 0.7 k/uL (0-1.0); Monocytes % (A) 6 %; Neutrophils # (A) 6.3 k/uL (1.3-7.7); Neutrophils % (A) 58 %; RBC 3.81 m/uL (4.30-5.90); RDW 16.9 % (11.5-15.5); WBC 10.8 k/uL (3.8-10.6); WBC (Perox) 11.01
[2017-04-23] MEDS: HYDROcodone/APAP 5-325MG 1 EACH TAB PO PRN ×2 (07:37→16:31)
[2017-04-23] MEDS: NITROFURANTOIN MONOHYD/M-CRYST 100 MG CAP PO SCH ×2 (07:39→21:11)
[2017-04-23] MEDS: FUROSEMIDE 20 MG TAB PO SCH (07:39)
[2017-04-23] MEDS: SUCRALFATE 1 GM TAB PO SCH ×4 (07:39→21:11)
[2017-04-23] MEDS: lamoTRIgine 100 MG TAB PO SCH ×2 (07:39→21:10)
[2017-04-23] MEDS: HALOPERIDOL 2 MG TAB PO SCH (07:39)
[2017-04-23] MEDS: PANTOPRAZOLE 40 MG TABLET PO SCH (07:39)
[2017-04-23] MEDS: FERROUS SULFATE 325 MG TAB PO SCH ×2 (07:39→21:11)
[2017-04-23] MEDS: HEPARIN SODIUM,PORCINE 5,000 UNIT/ML 1 ML VIAL SQ SCH ×3 (07:40→21:12)
[2017-04-23 07:55] LABS: Anion Gap 9 mmol/L; Blood Urea Nitrogen 21 mg/dL (9-20); Calcium 9.7 mg/dL (8.4-10.2); Carbon Dioxide 31 mmol/L (22-30); Chloride 99 mmol/L (98-107); Glucose 91 mg/dL (74-99); Non-African American GFR(MDRD) 50 (>60 ml/min/1.73 sqM); Sodium 139 mmol/L (137-145)
[2017-04-23 08:52] VITALS: BMI 32.9
[2017-04-23] MEDS: HALOPERIDOL 0.5 MG TAB PO SCH (12:59)
[2017-04-23] MEDS ORDERED: HALOPERIDOL 5 MG TAB PO SCH (13:28)
--- NOTE | 2017-04-23 13:38 | P.PN ---
Progress Note - Text Progress Note Date: 04/23/17 Interval History: Patient is agitated all throughout the day refusing care from various staff and exams from various members of his treatment team. Two attempts were made to interview him with patient screaming at me to leave the first time and asleep the second. Mental Status Exam: Appearance: somnolent, hygiene fair, appears stated age Behavior: sleeping, no abnormal movements, Attitude: uncooperative Speech: rate: yelling, normal rhythm, normal fluency, normal articulation ; volume: loud; and prosody choppy; primary language: [place] Mood: irritable Affect: labile, explosive Insight: poor Judgment: poor Plan: * increase Haldol to 5-mg PO QAM + 0.5-mg + 5-mg PO QHS * 12-lead EKG ordered to establish an updated QTc, report is processing? * * patient does not meet criteria for inpatient psychiatric admission * Psychiatry will follow ~ Jonathan Williamson DO
--- NOTE | 2017-04-23 16:23 | PN ---
PROGRESS NOTE DATE OF SERVICE: 04/23/2017 This 71-year-old gentleman admitted with a UTI had VRE and MRSA grown from the culture. The patient remains to be confused. Psychiatry is following the patient closely. As per Psychiatry, the patient does not meet the criteria for inpatient psych evaluation. No chest pain. No palpitations. No fever. EXAM: Alert and oriented x1. Pulse 105, blood pressure 140/72, respirations 18, temperature 97.3, pulse ox 98% on room air. HEENT: Conjunctivae normal. NECK: No jugular venous distention. CARDIOVASCULAR: S1, S2 muffled. RESPIRATORY: Breath sounds diminished in the bases. A few scattered rhonchi and crackles. ABDOMEN: Soft and nontender. LEGS: No edema. NERVOUS SYSTEM: Nonfocal LABS: WBC 10.8, hemoglobin is 9.4. Creatinine is 1.39. ASSESSMENT: 1. Acute urinary tract infection with possible vancomycin-resistant Enterococcus as well as Enterococcus faecium with possible sepsis. 2. Methicillin-resistant Staphylococcus aureus from the urine. 3. Acute delirium secondary to sepsis with agitation. 4. Possible acute metabolic encephalopathy with sepsis. 5. History of recent upper gastrointestinal bleeding secondary to duodenal ulcer. 6. Chronic hypoxic respiratory failure. 7. Change in mental status, possible acute metabolic encephalopathy. RECOMMENDATIONS AND DISCUSSION: Recommend to continue current medications. Continue with monitoring and symptomatic treatment. Otherwise at this time, will continue with antibiotics, closely follow with Psych. Further recommendations to follow. Discharge planning and placement per Social Work Case Management. MMODL / IJN: [id number] /
--- NOTE | 2017-04-23 17:35 | PN ---
PROGRESS NOTE DATE OF SERVICE: 04/23/2017 REASON FOR FOLLOWUP: MRSA and VRE urinary tract infection. INTERVAL HISTORY: The patient is afebrile. He seems to be less agitated today compared to yesterday. Denies any chest pain or cough. No abdominal pain and no urinary symptoms. PHYSICAL EXAMINATION: Blood pressure is 144/72 with a pulse of 105, temperature 97.9. He is 90% on room air. General description is an elderly male up in the chair in no distress. The patient refused to be examined. LABS: Hemoglobin 9.4, white count 10.8 with a BUN of 21, creatinine 1.39. Repeat urine culture negative. DIAGNOSTIC IMPRESSION AND PLAN: Patient with VRE and MRSA positive urine culture with a question of mild urinary tract infection. Repeat urine culture has been negative. Currently on Macrobid. He will continue that for about 5 to 7 days to finish course of therapy. Continue supportive care. MMODL / IJN: [id number] /
[2017-04-23] MEDS: QUEtiapine 25 MG TAB PO SCH (21:10)
[2017-04-23] MEDS: ATORVASTATIN 20 MG TAB PO SCH (21:11)
[2017-04-24] MEDS: SODIUM CHLORIDE 0.9% 1,000 ML IV SCH ×2 (02:09→13:17)
[2017-04-24] MEDS: HALOPERIDOL LACTATE 5 MG/ML 1 ML VIAL IM PRN (03:45)
[2017-04-24] MEDS: HALOPERIDOL 5 MG TAB PO SCH ×3 (04:26→19:59)
[2017-04-24] MEDS: IPRATROPIUM-ALBUTEROL 3 ML NEB INHALATION SCH ×3 (07:57→21:04)
[2017-04-24] MEDS: lamoTRIgine 100 MG TAB PO SCH ×2 (08:17→19:58)
[2017-04-24] MEDS: FERROUS SULFATE 325 MG TAB PO SCH ×2 (08:18→19:59)
[2017-04-24] MEDS: SUCRALFATE 1 GM TAB PO SCH ×4 (08:18→20:02)
[2017-04-24] MEDS: PANTOPRAZOLE 40 MG TABLET PO SCH (08:18)
[2017-04-24] MEDS: NITROFURANTOIN MONOHYD/M-CRYST 100 MG CAP PO SCH ×2 (08:18→19:58)
[2017-04-24] MEDS: HEPARIN SODIUM,PORCINE 5,000 UNIT/ML 1 ML VIAL SQ SCH ×2 (08:18→20:00)
[2017-04-24] MEDS: HALOPERIDOL 0.5 MG TAB PO SCH (13:17)
--- NOTE | 2017-04-24 15:32 | P.PN ---
Progress Note - Text Progress Note Date: 04/24/17 Vital Signs Temp 97.6 F 04/24/17 07:00 Pulse 98 04/24/17 07:00 Resp 17 04/24/17 07:00 BP 141/76 04/24/17 07:00 Pulse Ox 95 04/24/17 07:00 Interval History: Patient remains hostile and splenetic. Upon entry into his room he shouts, "I told you, I don't want to see a [facility] Psychiatrist." Interview terminated. Nursing staff reports better success with patient this afternoon although he had behavioral problems earlier this morning Mental Status Exam: Appearance: awake, alert, hygiene fair, appears stated age Behavior: PMA+++, no abnormal movements,++ Attitude: uncooperative Speech: rate: yelling, normal rhythm, normal fluency, normal articulation ; volume: loud; and prosody choppy; primary language: Swedish Mood: irritable Affect: labile, explosive Insight: poor Judgment: poor Plan: * continue l to 5-mg PO QAM + 0.5-mg + 5-mg PO QHS * 12-lead EKG ordered to establish an updated QTc, report is processing? New ordered placed * * patient does not meet criteria for inpatient psychiatric admission * Psychiatry will follow ~ Jonathan Williamson DO
--- NOTE | 2017-04-24 17:06 | PN ---
PROGRESS NOTE DATE OF SERVICE: 04/24/2017 INTERVAL HISTORY: This 71-year-old gentleman admitted with acute UTI with VRE and MRSA grown from the culture is being closely monitored. No chest pain. No palpitations. No fever. EXAM: Alert, oriented x3. Pulse is 98. Blood pressure 104/71, respiration 17, temperature 97.6, pulse ox 94% on room air. HEENT: Conjunctivae normal. NECK: No jugular venous distention. CARDIOVASCULAR: S1, S2 muffled. RESPIRATORY: Breath sounds diminished at the bases. No rhonchi, no crackles. Abdomen is soft, nontender. central nervous system: No focal deficits. LABS: At this time shows WBC 10.3, hemoglobin 9.4. ASSESSMENT: 1. Acute urinary tract infection with possible VRE as well as Enterococcus faecium with possible sepsis present on admission. 2. Methicillin-resistant Staphylococcus aureus in the urine. 3. Acute delirium possibly secondary to sepsis and agitation. 4. Possible acute metabolic encephalopathy sepsis. 5. History of recent upper gastrointestinal bleed secondary to duodenal ulcer. 6. Chronic hypoxic respiratory failure. 7. Change in mental status, possible acute metabolic encephalopathy. RECOMMENDATIONS AND DISCUSSION: Recommend to continue current medications. Continue symptomatic treatment. Continue the antibiotics. Otherwise I would also discuss again at length with the social and political studies professor regarding the discharge planning. The social workers are I have left multiple messages with different [facility] apparently and contacts. They are yet to get any feedback. They are also trying to call directly to the places where [facility]. Call-back is expected but not materialized yet. Prognosis guarded. MMODL / IJN: [id number] /
[2017-04-24] MEDS: ATORVASTATIN 20 MG TAB PO SCH (19:58)
[2017-04-24] MEDS: QUEtiapine 25 MG TAB PO SCH (19:58)
[2017-04-25] MEDS: SODIUM CHLORIDE 0.9% 1,000 ML IV SCH ×3 (01:14→20:31)
[2017-04-25] MEDS: IPRATROPIUM-ALBUTEROL 3 ML NEB INHALATION SCH ×4 (08:07→20:03)
[2017-04-25] MEDS: NITROFURANTOIN MONOHYD/M-CRYST 100 MG CAP PO SCH ×2 (09:03→20:02)
[2017-04-25] MEDS: FERROUS SULFATE 325 MG TAB PO SCH ×2 (09:03→20:02)
[2017-04-25] MEDS: SUCRALFATE 1 GM TAB PO SCH ×5 (09:03→20:31)
[2017-04-25] MEDS: PANTOPRAZOLE 40 MG TABLET PO SCH (09:03)
[2017-04-25] MEDS: HALOPERIDOL 5 MG TAB PO SCH ×2 (09:03→20:02)
[2017-04-25] MEDS: HEPARIN SODIUM,PORCINE 5,000 UNIT/ML 1 ML VIAL SQ SCH ×2 (09:03→20:03)
[2017-04-25] MEDS: lamoTRIgine 100 MG TAB PO SCH ×2 (09:03→20:02)
[2017-04-25] MEDS: HALOPERIDOL 0.5 MG TAB PO SCH (13:24)
--- NOTE | 2017-04-25 17:37 | PN ---
PROGRESS NOTE DATE OF SERVICE: 04/25/2017 INTERVAL HISTORY: This 71-year-old gentleman who was admitted with a chronic UTI is being closely monitored. The patient continues to be confused at this time. The PT, OT and Social Work and Case Management are working toward the placement issues. Please refer to the notes for further details. No chest pain. No palpitations. No fever. EXAM: Pulse is 108 and the blood pressure 141/76, respirations 17, temperature 97.2, pulse ox 94% on room air. HEENT: Conjunctivae normal. NECK: No jugular venous distention. CARDIOVASCULAR: S1, S2 muffled. RESPIRATORY: Breath sounds diminished in the bases. No rhonchi. No crackles. ABDOMEN: Soft, nontender. LEGS: No edema. NERVOUS SYSTEM: No focal deficits. LABS: Not available today. ASSESSMENT: 1. Acute urinary tract infection with possible vancomycin-resistant Enterococcus, Enterococcus faecium with possible sepsis present on admission. 2. Methicillin-resistant Staphylococcus aureus in the urine. 3. Acute delirium possibly secondary to sepsis. 4. History of possible acute metabolic encephalopathy secondary to sepsis. 5. History of recent upper gastrointestinal bleeding secondary to duodenal ulcer. 6. Chronic hypoxic respiratory failure. 7. Change in mental status, possible metabolic encephalopathy. RECOMMENDATIONS AND DISCUSSION: Recommend to continue current medications. Continue with monitoring, symptomatic treatment. I recommend repeat labs which are not available today; CBC, BMP. Continue the rest of the medications. Otherwise, the rest of the placement issues to be followed by behavioral health case manager and a social worker masters. Further recommendations to follow. MMODL / IJN: [id number] /
[2017-04-25 19:03] LABS: Anisocytosis Slight; Basophils # (A) 0.1 k/uL (0-0.2); Basophils % (A) 1 %; CH 23.9; CHCM 27.5; Eosinophils # (A) 0.3 k/uL (0-0.7); Eosinophils % (A) 3 %; HDW 2.87; HGB 9.3 gm/dL (13.0-17.5); Hypochromasia Marked; Luc % (Auto) 3; Lymphocytes # (A) 2.9 k/uL (1.0-4.8); Lymphocytes % (A) 26 %; MCH 24.6 pg (25.0-35.0); MCHC 28.3 g/dL (31.0-37.0); Mean Platelet Volume 7.5; Monocytes # (A) 0.7 k/uL (0-1.0); Monocytes % (A) 6 %; Neutrophils # (A) 6.9 k/uL (1.3-7.7); Neutrophils % (A) 61 %; RDW 17.2 % (11.5-15.5); WBC 11.2 k/uL (3.8-10.6); WBC (Perox) 11.57
[2017-04-25 19:06] LABS: Anion Gap 8 mmol/L; Blood Urea Nitrogen 16 mg/dL (9-20); Calcium 9.1 mg/dL (8.4-10.2); Carbon Dioxide 28 mmol/L (22-30); Chloride 102 mmol/L (98-107); Glucose 116 mg/dL (74-99); Non-African American GFR(MDRD) >60 (>60 ml/min/1.73 sqM); Potassium 4.3 mmol/L (3.5-5.1); Sodium 138 mmol/L (137-145)
[2017-04-25] MEDS: QUEtiapine 25 MG TAB PO SCH (20:02)
[2017-04-25] MEDS: ATORVASTATIN 20 MG TAB PO SCH (20:02)
[2017-04-26 06:47] LABS: Anisocytosis Slight; Basophils # (A) 0.1 k/uL (0-0.2); Basophils % (A) 1 %; CH 24.9; CHCM 28.9; Eosinophils # (A) 0.5 k/uL (0-0.7); Eosinophils % (A) 5 %; HCT 32.2 % (39.0-53.0); HDW 2.89; HGB 9.4 gm/dL (13.0-17.5); Hypochromasia Marked; Luc # (Auto) 0.25; Luc % (Auto) 3; Lymphocytes # (A) 3.4 k/uL (1.0-4.8); Lymphocytes % (A) 34 %; MCH 25.3 pg (25.0-35.0); MCHC 29.3 g/dL (31.0-37.0); MCV 86.3 fL (80.0-100.0); Mean Platelet Volume 7.7; Monocytes # (A) 0.8 k/uL (0-1.0); Monocytes % (A) 8 %; Neutrophils % (A) 50 %; RBC 3.74 m/uL (4.30-5.90); RDW 18.3 % (11.5-15.5); WBC (Perox) 9.18
[2017-04-26 07:06] LABS: Anion Gap 7 mmol/L; Blood Urea Nitrogen 13 mg/dL (9-20); Calcium 9.2 mg/dL (8.4-10.2); Carbon Dioxide 30 mmol/L (22-30); Chloride 102 mmol/L (98-107); Glucose 105 mg/dL (74-99); Non-African American GFR(MDRD) >60 (>60 ml/min/1.73 sqM); Potassium 4.9 mmol/L (3.5-5.1); Sodium 139 mmol/L (137-145)
[2017-04-26] MEDS: IPRATROPIUM-ALBUTEROL 3 ML NEB INHALATION SCH ×4 (07:25→19:35)
[2017-04-26] MEDS: NITROFURANTOIN MONOHYD/M-CRYST 100 MG CAP PO SCH ×2 (09:06→20:15)
[2017-04-26] MEDS: lamoTRIgine 100 MG TAB PO SCH ×2 (09:06→20:15)
[2017-04-26] MEDS: HALOPERIDOL 5 MG TAB PO SCH ×2 (09:06→20:15)
[2017-04-26] MEDS: PANTOPRAZOLE 40 MG TABLET PO SCH (09:07)
[2017-04-26] MEDS: HEPARIN SODIUM,PORCINE 5,000 UNIT/ML 1 ML VIAL SQ SCH ×2 (09:07→20:15)
[2017-04-26] MEDS: FERROUS SULFATE 325 MG TAB PO SCH ×2 (09:07→20:15)
[2017-04-26] MEDS: SUCRALFATE 1 GM TAB PO SCH ×4 (09:07→20:15)
[2017-04-26] MEDS: HALOPERIDOL 0.5 MG TAB PO SCH (13:22)
[2017-04-26] MEDS: SODIUM CHLORIDE 0.9% 1,000 ML IV SCH (18:31)
--- NOTE | 2017-04-26 19:26 | PN ---
PROGRESS NOTE DATE OF SERVICE: 04/26/2017 INTERVAL HISTORY: This 71-year-old gentleman admitted with UTI. The patient had features of VRE and enterococcus species grown from the culture. The patient on IV antibiotics. PT/OT evaluated the patient as well as social case management also looking for discharge planning also. PHYSICAL EXAM: Confused. Pulse is 107, blood pressure 140/70, respirations 20, temperature 97.9, pulse ox 93% on room air. HEENT is conjunctivae normal. Neck is no JVD. Cardiovascular: S1, S2 muffled. Respiratory: Breath sounds diminished at the bases. A few scattered rhonchi. Abdomen is soft, nontender. No mass. central nervous system: No focal deficits. LABS: WBC 10, hemoglobin 9.4, creatinine is normal. ASSESSMENT: 1. Acute urinary tract infection with possibly VRE enterococcus faecium and as well as possible sepsis present on presentation. 2. Methicillin-resistant Staphylococcus aureus in the urine. 3. Acute delirium possibly secondary to sepsis. 4. Possible acute metabolic acidosis secondary to sepsis. RECOMMENDATIONS AND DISCUSSION: Recommend to continue current medications, continue with management and symptomatic treatment. Closely monitor. Guarded prognosis because of multiple complex medical issues. See orders for further details. Further recommendations to follow. MMODL / IJN: [id number] /
[2017-04-26] MEDS: ATORVASTATIN 20 MG TAB PO SCH (20:15)
[2017-04-26] MEDS: QUEtiapine 25 MG TAB PO SCH (20:15)
[2017-04-27] MEDS: PANTOPRAZOLE 40 MG TABLET PO SCH (08:29)
[2017-04-27] MEDS: SODIUM CHLORIDE 0.9% 1,000 ML IV SCH (08:29)
[2017-04-27] MEDS: NITROFURANTOIN MONOHYD/M-CRYST 100 MG CAP PO SCH ×2 (08:29→20:10)
[2017-04-27] MEDS: SUCRALFATE 1 GM TAB PO SCH ×4 (08:29→20:10)
[2017-04-27] MEDS: HALOPERIDOL 5 MG TAB PO SCH ×2 (08:30→20:10)
[2017-04-27] MEDS: FERROUS SULFATE 325 MG TAB PO SCH ×2 (08:30→20:10)
[2017-04-27] MEDS: HEPARIN SODIUM,PORCINE 5,000 UNIT/ML 1 ML VIAL SQ SCH ×2 (08:30→20:10)
[2017-04-27] MEDS: lamoTRIgine 100 MG TAB PO SCH ×2 (08:31→20:10)
[2017-04-27] MEDS: IPRATROPIUM-ALBUTEROL 3 ML NEB INHALATION SCH ×4 (08:54→19:37)
--- NOTE | 2017-04-27 11:38 | PN ---
PROGRESS NOTE DATE OF SERVICE: 04/27/2017. REASON FOLLOWUP: Urinary tract infection. INTERVAL HISTORY: The patient is afebrile. He seems to be more awake and alert and in a better mood today. Denies any chest pain or shortness of breath or cough. History urinary symptoms have improved. EXAMINATION: Blood pressure 155/80 with a pulse of 108, temperature 97.5. He is 95% on room air. General description is an elderly male up in the room in no distress. LAB DATA: Did show his hemoglobin 9.4, white count normal at 10.0. Repeat urine culture negative. DIAGNOSTIC IMPRESSION AND PLAN: Patient with a positive culture with VRE and MRSA, currently on the Macrobid. He will continue for another 3-4 days to finish a course of therapy. Continue supportive care. MMODL / IJN: [id number] /
[2017-04-27] MEDS: HALOPERIDOL 0.5 MG TAB PO SCH (12:35)
--- NOTE | 2017-04-27 12:39 | PN ---
PROGRESS NOTE DATE OF SERVICE: 04/27/2017 This 71-year-old gentleman admitted with UTI possible sepsis. Had some change in mental status. cost and risk analysis manager and social welfare administrator planning for placement. No chest pain. No palpitation. PHYSICAL EXAMINATION: On exam, patient is mildly confused. Pulse is 108, blood pressure 155/80, temperature 97.5, pulse ox 94% on room air. HEENT: Conjunctivae normal. Oral mucosa moist. Neck is no jugular venous distention. No lymph node enlargement. CARDIOVASCULAR SYSTEM: S1 and S2 muffled. RESPIRATORY SYSTEM: Breath sounds diminished at the bases. A few scattered rhonchi and crackles. ABDOMEN: Soft, nontender. NERVOUS SYSTEM: No focal deficits. LABS: Labs are reviewed. ASSESSMENT: 1. Acute urinary tract infection, possible VRE, Enterococcus faecium as well as possible sepsis present on admission. 2. Hypertension. 3. Methicillin-resistant Staphylococcus aureus in the urine. 4. Acute delirium, possibly secondary to sepsis. 5. Possible acute metabolic encephalopathy secondary to sepsis. RECOMMENDATIONS AND DISCUSSION: Recommend to continue current medications. Continue symptomatic treatment. Otherwise will add Norvasc. Placement issues the rifle case repairercurriculum manager worker. Further recommendations to follow. MMODL / IJN: [id number] / MTDD
[2017-04-27] MEDS: amLODIPine 5 MG TAB PO SCH (12:40)
[2017-04-27] MEDS: HYDROcodone/APAP 5-325MG 1 EACH TAB PO PRN ×2 (16:16→21:29)
--- NOTE | 2017-04-27 19:02 | XR ---
EXAMINATION TYPE: XR panorex DATE OF EXAM: 04/27/2017 COMPARISON: NONE HISTORY: Mouth pain TECHNIQUE: Single view FINDINGS: Mandibular ring appears intact. There are multiple missing teeth. I see no focal bone destr uction. Temporomandibular joints are grossly intact. IMPRESSION: No fracture seen. No sign of osteomyelitis.
[2017-04-27] MEDS: QUEtiapine 25 MG TAB PO SCH (20:10)
[2017-04-27] MEDS: ATORVASTATIN 20 MG TAB PO SCH (20:10)
--- NOTE | 2017-04-27 22:07 | P.PN ---
Progress Note - Text Progress Note Date: 04/27/17 Vital Signs Temp 97.9 F 04/27/17 15:00 Pulse 105 H 04/27/17 15:00 Resp 18 04/27/17 15:00 BP 139/83 04/27/17 15:00 Pulse Ox 97 04/27/17 15:00 Interval History: Patient interviewed at bedside. He is calm today, pleasant. He reports that he has been feeling "rough" these last few days and is unable to explain why. Patient reports that he is excited to leave the hospital and denies any new complaints. Per staff, patient has had no behavioral problems today and has been cooperative. Patient denies SI/HI/AVH. Mental Status Exam: Appearance: awake, alert, hygiene fair, appears stated age Behavior: no PMA, no PMR, no abnormal movements,+ Attitude: uncooperative Speech: rate: normal normal rhythm, normal fluency, normal articulation; volume: loud; and prosody choppy; primary language: Uz[place] Mood: "pretty good" Affect: reactive, congruent Insight: poor Judgment: poor Plan: * continue l to 5-mg PO QAM + 0.5-mg + 5-mg PO QHS * * patient does not meet criteria for inpatient psychiatric admission * Psychiatry sign off, please re-consult if you have additional questions or concerns
[2017-04-28] MEDS: NITROFURANTOIN MONOHYD/M-CRYST 100 MG CAP PO SCH ×2 (08:26→20:07)
[2017-04-28] MEDS: SUCRALFATE 1 GM TAB PO SCH ×4 (08:26→20:07)
[2017-04-28] MEDS: PANTOPRAZOLE 40 MG TABLET PO SCH (08:26)
[2017-04-28] MEDS: lamoTRIgine 100 MG TAB PO SCH ×2 (08:26→20:06)
[2017-04-28] MEDS: FERROUS SULFATE 325 MG TAB PO SCH ×2 (08:27→20:06)
[2017-04-28] MEDS: HALOPERIDOL 5 MG TAB PO SCH ×2 (08:27→20:06)
[2017-04-28] MEDS: amLODIPine 5 MG TAB PO SCH (08:27)
[2017-04-28] MEDS: HEPARIN SODIUM,PORCINE 5,000 UNIT/ML 1 ML VIAL SQ SCH ×2 (08:28→20:10)
[2017-04-28] MEDS: IPRATROPIUM-ALBUTEROL 3 ML NEB INHALATION SCH ×4 (08:35→19:42)
[2017-04-28] MEDS: HALOPERIDOL 0.5 MG TAB PO SCH ×2 (12:12→12:17)
--- NOTE | 2017-04-28 16:43 | P.PN ---
Subjective Progress Note Date: 04/28/17 Progress note being dictated for Dr. Burch. Interval history: This is a 71 year-old gentleman admitted with acute UTI, possible sepsis, acute metabolic encephalopathy and multiple other medical issues. More alert.Evaluated by psychiatry with recommendations noted. Antibiotics of Macrobid as per infectious disease.Panorex reporting no fracture , no sign of osteomyelitis. Awaiting AFC placement with social sciences instructor assistance. Afebrile, normal WBC. Repeat urine culture negative. Denies chest pain, palpitations or increasing shortness of breath. Objective - Vital Signs Vital signs: Vital Signs Temp 97.4 F L 04/28/17 07:00 Pulse 116 H 04/28/17 08:00 Resp 18 04/28/17 08:00 BP 160/37 04/28/17 07:00 Pulse Ox 96 04/28/17 07:00 Intake & Output 04/27/17 04/28/17 04/28/17 18:59 06:59 18:59 Intake Total 880 Output Total 400 Balance -400 880 Intake: Oral 880 Output: Urine 400 Other: Voiding Method Urinal Urinal Urinal # Voids 1 2 - Exam PHYSICAL EXAM: VITAL SIGNS: As above GENERAL: Sitting up in bed, pleasantly confused HEENT: Conjunctivae normal. eyes normal. NECK: No JVD. No thyroid enlargement. No LNs CARDIOVASCULAR: S1, S2 muffled. No murmur RESPIRATION: Breath sounds diminished in the bases. Occasional scattered rhonchi , no crackles. No bronchial breathing. ABDOMEN: Soft, nontender . No guarding. no masses palpable.Bowel sounds heard. LEGS: No edema. no swelling PSYCHIATRY: Alert and oriented -2, confused, cooperative. NERVOUS SYSTEM: Cranial N 2-12 grossly normal. Moves all 4 limbs. Diffuse weakness No focal deficits. No sensory deficit. Microbiology 04/18/17 12:18 Blood Blood Culture - Final No Growth after 144 hours 04/20/17 20:57 Urine,Voided Urine Culture - Final 04/17/17 14:47 Urine,Voided Urine Culture - Final Enterococcus faecium VRE Methicillin resist S. aureus - Labs CBC & Chem 7: 04/26/17 06:31 04/26/17 06:31 Assessment and Plan Plan: 1. Acute UTI with VRE and MRSA, possible sepsis, present on admission. 2. [Hypertension. 3. [ Acute delirium, acute metabolic encephalopathy secondary to sepsis]. Plan: Continue on current medication regime ,monitoring. Antibiotics as per infectious disease. Discharge planning in progress pending AFC placement per social work. Maintain supportive care. The impression and plan of care has been dictated as directed as a scribe. : I performed a history and examination of this patient, discussed the same with the dictator. I agree with the dictator's note ,documented as a scribe. Any additional findings or plans will be noted.
[2017-04-28] MEDS: QUEtiapine 25 MG TAB PO SCH (20:06)
[2017-04-28] MEDS: ATORVASTATIN 20 MG TAB PO SCH (20:10)
[2017-04-29] MEDS: HYDROcodone/APAP 5-325MG 1 EACH TAB PO PRN ×2 (02:31→07:59)
[2017-04-29 07:46] VITALS: RESP 16
[2017-04-29] MEDS: IPRATROPIUM-ALBUTEROL 3 ML NEB INHALATION SCH ×4 (07:51→20:16)
[2017-04-29] MEDS: NITROFURANTOIN MONOHYD/M-CRYST 100 MG CAP PO SCH ×2 (07:53→20:51)
[2017-04-29] MEDS: HEPARIN SODIUM,PORCINE 5,000 UNIT/ML 1 ML VIAL SQ SCH ×2 (07:54→20:51)
[2017-04-29] MEDS: FERROUS SULFATE 325 MG TAB PO SCH ×2 (07:54→20:50)
[2017-04-29] MEDS: lamoTRIgine 100 MG TAB PO SCH ×2 (07:54→20:51)
[2017-04-29] MEDS: HALOPERIDOL 5 MG TAB PO SCH ×2 (07:54→20:50)
[2017-04-29] MEDS: SUCRALFATE 1 GM TAB PO SCH ×4 (07:54→20:51)
[2017-04-29] MEDS: PANTOPRAZOLE 40 MG TABLET PO SCH (07:55)
[2017-04-29] MEDS: amLODIPine 5 MG TAB PO SCH (07:55)
[2017-04-29] MEDS: HALOPERIDOL 0.5 MG TAB PO SCH (13:37)
[2017-04-29 16:25] VITALS: BP 140/77; TEMP 98.1
--- NOTE | 2017-04-29 17:52 | P.PN ---
Subjective Progress Note Date: 04/29/17 Progress note being dictated for Dr. Rasheed 04/28/17 Interval history: This is a 71 year-old gentleman admitted with acute UTI, possible sepsis, acute metabolic encephalopathy and multiple other medical issues. More alert.Evaluated by psychiatry with recommendations noted. Antibiotics of Macrobid as per infectious disease.Panorex reporting no fracture , no sign of osteomyelitis. Awaiting AFC placement with social worker health services assistance. Afebrile, normal WBC. Repeat urine culture negative. Denies chest pain, palpitations or increasing shortness of breath. 04/29/2017. Maintained on Macrobid ,Afebrile, normal WBC. Denies chest pain, palpitations or increasing shortness of breath. Awaiting discharge to AFC as being arranged per social worker health services. Objective - Vital Signs Vital signs: Vital Signs Temp 98.1 F 04/29/17 15:00 Pulse 101 H 04/29/17 15:00 Resp 16 04/29/17 15:00 BP 140/77 04/29/17 15:00 Pulse Ox 91 L 04/29/17 15:00 Intake & Output 04/28/17 04/29/17 04/29/17 18:59 06:59 18:59 Intake Total 880 1420 Balance 880 1420 Weight 110.223 kg Intake: Oral 880 1420 Other: Voiding Method Urinal Urinal Urinal # Voids 3 4 - Exam PHYSICAL EXAM: VITAL SIGNS: As above GENERAL: Sitting up in bed, agitated HEENT: Conjunctivae normal. eyes normal. NECK: No JVD. No thyroid enlargement. No LNs CARDIOVASCULAR: S1, S2 muffled. No murmur RESPIRATION: Breath sounds diminished in the bases. Occasional scattered rhonchi , no crackles. No bronchial breathing. ABDOMEN: Soft, nontender . No guarding. no masses palpable.Bowel sounds heard. LEGS: No edema. no swelling PSYCHIATRY: Alert and oriented -2, confused, agitated NERVOUS SYSTEM: Cranial N 2-12 grossly normal. Moves all 4 limbs. Diffuse weakness No focal deficits. No sensory deficit. Microbiology 04/18/17 12:18 Blood Blood Culture - Final No Growth after 144 hours 04/20/17 20:57 Urine,Voided Urine Culture - Final 04/17/17 14:47 Urine,Voided Urine Culture - Final Enterococcus faecium VRE Methicillin resist S. aureus - Labs CBC & Chem 7: 04/26/17 06:31 04/26/17 06:31 Assessment and Plan Plan: 1. Acute UTI with VRE and MRSA, possible sepsis, present on admission. 2. [Hypertension. 3. [ Acute delirium, acute metabolic encephalopathy secondary to sepsis]. Plan: Continue on current medication regime ,monitoring. Maintain antibiotics as per infectious disease. Discharge planning in progress pending AFC placement per social work. Maintain supportive care. The impression and plan of care has been dictated as directed as a scribe. : I performed a history and examination of this patient, discussed the same with the dictator. I agree with the dictator's note ,documented as a scribe. Any additional findings or plans will be noted.
[2017-04-29] MEDS: QUEtiapine 25 MG TAB PO SCH (20:50)
[2017-04-29] MEDS: ATORVASTATIN 20 MG TAB PO SCH (20:50)
[2017-04-29] MEDS: SENNOSIDES-DOCUSATE SODIUM 1 EACH TAB PO SCH (20:51)
[2017-04-30 03:32] VITALS: PULSE 84
[2017-04-30] MEDS: IPRATROPIUM-ALBUTEROL 3 ML NEB INHALATION SCH ×3 (08:00→15:46)
[2017-04-30] MEDS: lamoTRIgine 100 MG TAB PO SCH (08:35)
[2017-04-30] MEDS: SUCRALFATE 1 GM TAB PO SCH ×2 (08:35→12:03)
[2017-04-30] MEDS: FERROUS SULFATE 325 MG TAB PO SCH (08:36)
[2017-04-30] MEDS: PANTOPRAZOLE 40 MG TABLET PO SCH (08:36)
[2017-04-30] MEDS: NITROFURANTOIN MONOHYD/M-CRYST 100 MG CAP PO SCH (08:36)
[2017-04-30] MEDS: HEPARIN SODIUM,PORCINE 5,000 UNIT/ML 1 ML VIAL SQ SCH ×2 (08:36→08:46)
[2017-04-30] MEDS: HALOPERIDOL 5 MG TAB PO SCH (08:36)
[2017-04-30] MEDS: amLODIPine 5 MG TAB PO SCH (08:36)
[2017-04-30] MEDS: HYDROcodone/APAP 5-325MG 1 EACH TAB PO PRN (08:39)
[2017-04-30] MEDS: SENNOSIDES-DOCUSATE SODIUM 1 EACH TAB PO SCH (08:39)
[2017-04-30] MEDS: HALOPERIDOL 0.5 MG TAB PO SCH (12:05)
--- NOTE | 2017-04-30 15:00 | P.DS ---
Providers Date of admission: 04/17/17 21:00 Attending physician: María Elena Curry Consults: 04/17/17 21:01 Consult Physician Urgent Consulting Provider: Jonathan Williamson Consult Reason/Comments: Aggression and agitation Do you want consulting provider notified?: Yes, Notify in am 04/20/17 06:01 Consult Physician Routine Consulting Provider: Ciaran Altman Consult Reason/Comments: vre, mrsa in urine Do you want consulting provider notified?: Yes 04/20/17 18:00 Consult Physician Routine Consulting Provider: Ciaran Altman Consult Reason/Comments: uti Do you want consulting provider notified?: Yes 04/27/17 16:22 Consult Physician Routine Consulting Provider: Danilo Montoya Consult Reason/Comments: mouth pain, tooth pain Do you want consulting provider notified?: Yes Primary care physician: [facility] Course: This 71-year-old gentleman with a past medical history multiple medical problems was admitted with change in mental status. The patient had features acute UTI with VRE and MRSA. Patient had features of sepsis present on admission. Patient treats IV antibiotics. Patient improved significantly. Multiple consultants saw the patient during the hospitalization. Medications are adjusted. Patient improved significantly. Patient be discharged in stable condition with guarded prognosis with the following of his medications. On exam vitals are stable. Cardio S1 and S2 normal. Respirator system. Prostration. Abdomen soft nontender. No system no focal deficit. Final diagnosis 1. Acute UTI with VRE and MRSA with a possible sepsis present on admission. 2. Hypertension. 3. Acute delirium and acute metabolic encephalopathy secondary to sepsis. Patient Condition at Discharge: Stable Plan - Discharge Summary New Discharge Prescriptions: New Haloperidol [Haldol] 0.5 mg PO PC-LUNCH tab Haloperidol [Haldol] 5 mg PO BID tab HYDROcodone/APAP 5-325MG [[place] 5-325] 1 each PO Q6HR PRN #20 tab PRN Reason: Pain Nitrofurantoin Monohyd/M-Cryst [Macrobid] 100 mg PO BID@0800,1999 #10 cap QUEtiapine [SEROquel] 75 mg PO HS tab amLODIPine [Norvasc] 5 mg PO DAILY #30 tab Sennosides-Docusate Sodium [Senokot-S] 1 each PO BID #60 tab Acetaminophen Tab [Tylenol] 650 mg PO Q6HR PRN #0 tab PRN Reason: Mild Pain Or Fever > 100.5 Continue Cranberry-Vit C Liquid 30 ml PO BID Atorvastatin [Lipitor] 20 mg PO HS #30 Ferrous Sulfate [Iron (65 MG Elemental)] 325 mg PO BID #60 Furosemide [Lasix] 20 mg PO DAILY #30 Ipratropium-Albuterol Nebulize [Duoneb 0.5 mg-3 mg/3 ml Soln] 3 ml INHALATION RT-QID@,12,16,20 #120 lamoTRIgine [LaMICtal] 100 mg PO BID #60 Omeprazole [PriLOSEC] 20 mg PO DAILY #30 Sucralfate [Carafate] 1 gm PO ACHS@,11,,20 #120 Discontinued HYDROcodone/APAP 5-325MG [[place] 5-325] 1 tab PO Q4-6H PRN PRN Reason: Pain Acetaminophen [Tylenol] 650 mg PO Q8H PRN PRN Reason: Pain Ipratropium-Albuterol Nebulize [Duoneb 0.5 mg-3 mg/3 ml Soln] 3 ml INHALATION RT-Q4H PRN PRN Reason: Shortness Of Breath Nitrofurantoin Monohyd/M-Cryst [Macrobid] 100 mg PO BID@ QUEtiapine [SEROquel] 50 mg PO HS@1999 Discharge Medication List Cranberry-Vit C Liquid 30 ml PO BID 03/12/17 [History] HYDROcodone/APAP 5-325MG [[place] 5-325] 1 each PO Q6HR PRN #20 tab 04/27/17 [Rx] Haloperidol [Haldol] 0.5 mg PO PC-LUNCH tab 04/27/17 [Rx] Haloperidol [Haldol] 5 mg PO BID tab 04/27/17 [Rx] Nitrofurantoin Monohyd/M-Cryst [Macrobid] 100 mg PO BID@799,1999 #10 cap [Rx] QUEtiapine [SEROquel] 75 mg PO HS tab 04/27/17 [Rx] Acetaminophen Tab [Tylenol] 650 mg PO Q6HR PRN #0 tab 04/30/17 [Rx] Atorvastatin [Lipitor] 20 mg PO HS #30 04/30/17 [Rx] Ferrous Sulfate [Iron (65 MG Elemental)] 325 mg PO BID #60 04/30/17 [Rx] Furosemide [Lasix] 20 mg PO DAILY #30 04/30/17 [Rx] Ipratropium-Albuterol Nebulize [Duoneb 0.5 mg-3 mg/3 ml Soln] 3 ml INHALATION RT -QID@07,12,16,20 #120 04/30/17 [Rx] Omeprazole [PriLOSEC] 20 mg PO DAILY #30 04/30/17 [Rx] Sennosides-Docusate Sodium [Senokot-S] 1 each PO BID #60 tab 04/30/17 [Rx] Sucralfate [Carafate] 1 gm PO ACHS@07,11,16,20 #120 04/30/17 [Rx] amLODIPine [Norvasc] 5 mg PO DAILY #30 tab 04/30/17 [Rx] lamoTRIgine [LaMICtal] 100 mg PO BID #60 04/30/17 [Rx] Follow up Appointment(s)/Referral(s): Eugenio Roberts Dr. PCP [Other] - 3 Days Ambulatory/Diagnostic Orders: Complete Blood Count w/diff [LAB.AMB] Time Frame: 3 Days, Location: Determined By Patient Activity/Diet/Wound Care/Special Instructions: Orion Roberts DIet: cardiac Activityi: as tolerated cbc,bmp in 3 days Discharge Disposition: TRANSFER TO SNF/ECF
== END 2017-04-30 18:30 | disposition home or self-care (01) | DRG 871 ==
LOC: EC 13:47 → 5MS5E 21:00
PROVIDERS: ADMIT Hospitalist; ATTEND Hospitalist
DX: A41.9 Sepsis, unspecified organism (principal); G93.41 Metabolic encephalopathy; J96.11 Chronic respiratory failure with hypoxia; N39.0 Urinary tract infection, site not specified; F20.0 Paranoid schizophrenia; B95.2 Enterococcus as the cause of diseases classified elsewhere; B95.62 Methicillin resistant Staphylococcus aureus infection as the cause of diseases classified elsewhere; F43.10 Post-traumatic stress disorder, unspecified; I10 Essential (primary) hypertension; K08.89 Other specified disorders of teeth and supporting structures; K21.9 Gastro-esophageal reflux disease without esophagitis; R65.20 Severe sepsis without septic shock; F32.9 Major depressive disorder, single episode, unspecified; E66.9 Obesity, unspecified; J44.9 Chronic obstructive pulmonary disease, unspecified; K26.9 Duodenal ulcer, unspecified as acute or chronic, without hemorrhage or perforation; E78.5 Hyperlipidemia, unspecified; R45.1 Restlessness and agitation; R32 Unspecified urinary incontinence; Z16.21 Resistance to vancomycin; Z79.899 Other long term (current) drug therapy; Z87.891 Personal history of nicotine dependence
CPT/HCPCS: 36415; 70355; 80048; 80053; 80306; 80320; 81001; 83605; 85025; 87040; 87077; 87086; 87186; 94640; 96372; 99285

== ENCOUNTER 2017-06-15 20:27 | Emergency (ER) | payer MEDICARE, OTHER ==
[2017-06-15] MEDS ORDERED: HALOPERIDOL LACTATE 5 MG/ML 1 ML VIAL IM STA (21:21)
[2017-06-15] MEDS ORDERED: LORazepam 2 MG/ML INJ IM STA (21:22)
[2017-06-15 22:04] LABS: Anisocytosis Slight; Basophils % (A) 0 %; CH 23.4; CHCM 29.7; Eosinophils # (A) 0.6 k/uL (0-0.7); Eosinophils % (A) 6 %; HCT 40.5 % (39.0-53.0); HDW 2.58; HGB 12.2 gm/dL (13.0-17.5); Hypochromasia Marked; Luc # (Auto) 0.14; Luc % (Auto) 2; Lymphocytes # (A) 2.7 k/uL (1.0-4.8); Lymphocytes % (A) 29 %; MCH 23.9 pg (25.0-35.0); MCHC 30.2 g/dL (31.0-37.0); Mean Platelet Volume 8.1; Microcytosis Slight; Monocytes # (A) 0.6 k/uL (0-1.0); Monocytes % (A) 6 %; Neutrophils # (A) 5.4 k/uL (1.3-7.7); Neutrophils % (A) 57 %; RBC 5.12 m/uL (4.30-5.90); RDW 16.9 % (11.5-15.5); WBC 9.5 k/uL (3.8-10.6); WBC (Perox) 9.29
[2017-06-15 22:19] LABS: Acetaminophen <10.0 ug/mL; Anion Gap 8 mmol/L; Blood Urea Nitrogen 20 mg/dL (9-20); Calcium 9.4 mg/dL (8.4-10.2); Carbon Dioxide 32 mmol/L (22-30); Chloride 99 mmol/L (98-107); Glucose 107 mg/dL (74-99); Non-African American GFR(MDRD) >60 (>60 ml/min/1.73 sqM); Potassium 4.5 mmol/L (3.5-5.1); Salicylate <1.0 mg/dL; Sodium 139 mmol/L (137-145)
[2017-06-16 00:26] LABS: Appearance,Urine Clear (Clear); Bilirubin,Urine Negative (Negative); Glucose,Urine (UA) Negative (Negative); Ketones,Urine Negative (Negative); Leukocyte Esterase,Urine Negative (Negative); Nitrite,Urine Negative (Negative); Protein,Urine Negative (Negative); Specific Gravity,Urine 1.011 (1.001-1.035); UA Billing (MACRO vs. MICRO) CHEM; Urobilinogen,Urine <2.0 mg/dL (<2.0)
--- NOTE | 2017-06-16 01:06 | ED ---
Psych HPI - General Source: police, RN/MD Mode of arrival: EMS <Tyshawn Andrea - Last Filed: 06/16/17 01:01> <Tyshawn Hayes - Last Filed: 06/16/17 06:39> - General Chief Complaint: Psychiatric Symptoms Stated Complaint: mental health Time Seen by Provider: 06/15/17 20:48 - History of Present Illness Initial Comments: This 71-year-old white male presents for psychiatric evaluation. He is brought in by EMS. He apparently is refusing to return to the longterm where he lives. He made statements that he will kill everyone at the longterm. He is very mad and essentially refusing to talk to me. He is quite mad and reactive to staff. He is consistently swearing. He does want to be admitted for further psychiatric treatment. He denies any medical complaints. No other modifying factors. History is somewhat limited as he is not very compliant with discussion. (Tyshawn Andrea) - Related Data Home Medications Medication Instructions Recorded Confirmed Fluticasone/Vilanterol [Breo 1 puff INHALATION RT-DAILY 06/15/17 06/15/17 Ellipta 100-25 Mcg Inhaler] Folic Acid 1 mg PO DAILY 06/15/17 06/15/17 Furosemide [Lasix] 40 mg PO DAILY 06/15/17 06/15/17 QUEtiapine [SEROquel] 50 mg PO BID 06/15/17 06/15/17 Previous Rx's Medication Instructions Recorded Atorvastatin [Lipitor] 20 mg PO HS #30 04/30/17 Ferrous Sulfate [Iron (65 MG 325 mg PO BID #60 04/30/17 Elemental)] amLODIPine [Norvasc] 5 mg PO DAILY #30 tab 04/30/17 Allergies Allergy/AdvReac Type Severity Reaction Status Date / Time No Known Allergies Allergy Verified 06/15/17 20:48 Review of Systems ROS Other: All systems not noted in ROS Statement are negative. <Tyshawn Andrea - Last Filed: 06/16/17 01:01> ROS Other: All systems not noted in ROS Statement are negative. <Tyshawn Hayes - Last Filed: 06/16/17 06:39> ROS Statement: Those systems with pertinent positive or pertinent negative responses have been documented in the HPI. Past Medical History Past Medical History: GERD/Reflux, GI Bleed, Pneumonia Additional Past Medical History / Comment(s): Obesity, shelter resident, depression, PTSD, schizophrenia paranoid type .per nurse at [facility],pt can become violent/agitated/combatative, COPD, chronic hypoxic and hypercapnic respiratory failure, hyperlipidemia, hypertension, recent hospitalization for acute respiratory failure requiring intubation mechanical ventilation. Recent sepsis- readmission History of Any Multi-Drug Resistant Organisms: ESBL, MRSA, VRE Date of last positivie culture/infection: 04/17/17 MDRO Source:: VRE/MRSA URINE, 04/04/17 ESBL URINE Past Surgical History: No Surgical Hx Reported Additional Past Surgical History / Comment(s): rt knee cyst, right hand cyst, egd w/bx 03-12-17 Past Anesthesia/Blood Transfusion Reactions: No Reported Reaction Past Psychological History: Depression, PTSD, Schizophrenia Smoking Status: Former smoker - Past Family History Father Family Medical History: Unable to Obtain Mother Family Medical History: Unable to Obtain <Tyshawn Andrea - Last Filed: 06/16/17 01:01> General Exam <Tyshawn Andrea - Last Filed: 06/16/17 01:01> <Tyshawn Hayes - Last Filed: 06/16/17 06:39> - General Exam Comments Initial Comments: GENERAL: The patient is well nourished and well hydrated. VITAL SIGNS: Heart rate, blood pressure, respiratory rate reviewed as recorded in nurse's notes. EYES: Pupils are round and reactive. Extraocular movements are intact. No conjunctival / lid redness or swelling. ENT: No external evidence of injury, swelling, or ecchymosis. Airway is patent. Throat is clear. NECK: Nontender. No swelling or evidence of injury. No subcutaneous emphysema. Trachea is midline. No thyroid mass. HEART: Regular rate and rhythm. Good peripheral pulses. LUNGS/CHEST: Breath sounds clear and equal bilaterally. No rales, rhonchi, or wheezes. No ecchymosis, subcutaneous emphysema, or tenderness. ABDOMEN: Abdomen soft without tenderness. No palpable masses or organomegaly. No peritoneal signs. No abdominal wall swelling or ecchymosis. EXTREMITIES: No extremity tenderness. Normal muscle tone and function. No thoracolumbar tenderness. NEUROLOGIC: Sensation is grossly intact. Cranial nerve exam reveals face is symmetrical, tongue is midline, speech is clear. SKIN: No abrasions or ecchymosis is noted. No induration or masses noted. PSYCHIATRIC: Alert but not oriented. He is quite rude, mad, swearing, and belligerent. (Tyshawn Andrea) Course <Tyshawn Andrea - Last Filed: 06/16/17 01:01> <Tyshawn Hayes - Last Filed: 06/16/17 06:39> Vital Signs 06/15/17 06/16/17 20:37 06:20 Temperature 97.8 F 97.3 F L Pulse Rate 76 72 Respiratory 20 16 Rate Blood Pressure 150/99 148/89 O2 Sat by Pulse 98 98 Oximetry - Reevaluation(s) Reevaluation #1: 06/16/17 06:39 The patient was evaluated by psychiatric service. Patient will be transferred to the [facility] in [place]. A physician certification was filled out by me. (Tyshawn Hayes) Medical Decision Making - Lab Data Result diagrams: 06/15/17 21:54 06/15/17 21:54 <Tyshawn Andrea - Last Filed: 06/16/17 01:01> - Lab Data Result diagrams: 06/15/17 21:54 06/15/17 21:54 <Tyshawn Hayes - Last Filed: 06/16/17 06:39> - Medical Decision Making The patient was seen and examined. All diagnostics are reviewed. His laboratory is all essentially within normal limits with a mild Nikkie a. His drug screen is positive for tricyclic antidepressants. The patient does receive Haldol and Ativan IM and is sleeping on recheck and in no distress. Is felt as though he is cleared from a medical standpoint for further psychiatric evaluation. Appears that he is homicidal. He may be suicidal as well. It is felt that he would benefit from additional psychiatric inpatient treatment. ( Tyshawn Andrea) - Lab Data Lab Results 06/15/17 06/15/17 06/16/17 Range/Units 21:54 21:54 00:09 WBC 9.5 (3.8-10.6) k/uL RBC 5.12 (4.30-5.90) m/uL Hgb 12.2 L (13.0-17.5) gm/dL Hct 40.5 (39.0-53.0) % MCV 79.0 L D (80.0-100.0) fL MCH 23.9 L (25.0-35.0) pg MCHC 30.2 L (31.0-37.0) g/dL RDW 16.9 H (11.5-15.5) % Plt Count 221 (150-450) k/uL Neutrophils % 57 % Lymphocytes % 29 % Monocytes % 6 % Eosinophils % 6 % Basophils % 0 % Neutrophils # 5.4 (1.3-7.7) k/uL Lymphocytes # 2.7 (1.0-4.8) k/uL Monocytes # 0.6 (0-1.0) k/uL Eosinophils # 0.6 (0-0.7) k/uL Basophils # 0.0 (0-0.2) k/uL Hypochromasia Marked Anisocytosis Slight Microcytosis Slight Sodium 139 (137-145) mmol/L Potassium 4.5 (3.5-5.1) mmol/L Chloride 99 (98-107) mmol/L Carbon Dioxide 32 H (22-30) mmol/L Anion Gap 8 mmol/L BUN 20 (9-20) mg/dL Creatinine 1.14 (0.66-1.25) mg/dL Est GFR (MDRD) Af Amer >60 (>60 ml/min/1.73 sqM) Est GFR (MDRD) Non-Af >60 (>60 ml/min/1.73 sqM) Glucose 107 H (74-99) mg/dL Calcium 9.4 (8.4-10.2) mg/dL Urine Color Yellow Urine Appearance Clear (Clear) Urine pH 7.0 (5.0-8.0) Ur Specific Braxton 1.011 (1.001-1.035) Urine Protein Negative (Negative) Urine Glucose (UA) Negative (Negative) Urine Ketones Negative (Negative) Urine Blood Negative (Negative) Urine Nitrite Negative (Negative) Urine Bilirubin Negative (Negative) Urine Urobilinogen <2.0 (<2.0) mg/dL Ur Leukocyte Esterase Negative (Negative) Salicylates <1.0 mg/dL Urine Opiates Screen Not Detected (NotDetected) Ur Oxycodone Screen Not Detected (NotDetected) Urine Methadone Screen Not Detected (NotDetected) Ur Propoxyphene Screen Not Detected (NotDetected) Acetaminophen <10.0 ug/mL Ur Barbiturates Screen Not Detected (NotDetected) U Tricyclic Antidepress Detected H (NotDetected) Ur Phencyclidine Scrn Not Detected (NotDetected) Ur Amphetamines Screen Not Detected (NotDetected) U Methamphetamines Scrn Not Detected (NotDetected) U Benzodiazepines Scrn Not Detected (NotDetected) Urine Cocaine Screen Not Detected (NotDetected) U Marijuana (THC) Screen Not Detected (NotDetected) Disposition <Tyshawn Andrea - Last Filed: 06/16/17 01:01> <Tyshawn Hayes - Last Filed: 06/16/17 06:39> Clinical Impression: Agitation, Psychosis, Homicidal ideation, Suicidal ideation Disposition: TRANSFER TO PSYCH HOSP/UNIT Condition: Stable
[2017-06-16 08:11] VITALS: BP 135/81; PULSE 90; RESP 18; TEMP 97.7
== END 2017-06-16 08:23 ==
LOC: EC 20:27
DX: F29 Unspecified psychosis not due to a substance or known physiological condition (principal); R45.850 Homicidal ideations; R45.851 Suicidal ideations; R45.1 Restlessness and agitation; I10 Essential (primary) hypertension; J44.9 Chronic obstructive pulmonary disease, unspecified; F20.0 Paranoid schizophrenia; F32.9 Major depressive disorder, single episode, unspecified; E66.9 Obesity, unspecified; Z87.891 Personal history of nicotine dependence; Z79.51 Long term (current) use of inhaled steroids; Z79.899 Other long term (current) drug therapy; Z68.28 Body mass index [BMI] 28.0-28.9, adult
CPT/HCPCS: 99285; 96372 ×2; 82075; 36415; 80048; 85025; 81003; 80306; 83520 ×2; J2060; J1630